=== PATIENT | female | born 1970 | race Caucasian/White ===

== ENCOUNTER 2017-05-25 11:12 | Emergency (ER) | payer MEDICAID ==
[2017-05-25 12:45] LABS: Urine Drugs of Abuse Note Disclamer
[2017-05-25 12:53] LABS: Bilirubin,Urine NEG (Negative); Blood,Urine NEG (Negative); Ketones,Urine 20 mg/dL (Negative); Leukocyte Esterase,Urine NEG (Negative); Mucus,Urine FEW /HPF; Nitrite,Urine NEG (Negative); Urobilinogen,Urine < 2.0 mg/dL (<2.0)
[2017-05-25 12:54] LABS: Basophils % (Auto) 0.5 % (0.0-1.8); Hemoglobin 12.1 gm/dl (10.1-14.3); Mean Corpuscular HGB Conc 33 % (30-34); Mean Corpuscular Hemoglobin 29 pg (28-32); Mean Corpuscular Volume 88 fl (79-97); Red Blood Count 4.23 M/mm3 (3.65-5.03); Red Cell Distribution Width 13.7 % (13.2-15.2); White Blood Count 12.1 K/mm3 (4.5-11.0)
--- NOTE | 2017-05-25 13:07 | XRay Report ---
Single view chest: History: Mental status. Findings: Normal cardiomediastinal silhouette. Trachea is midline. No consolidation, pneumothorax or pleural effusion. Impression: No acute cardiopulmonary findings.
[2017-05-25 13:13] LABS: Alanine Aminotransferase 17 units/L (7-56); Albumin 4.5 g/dL (3.9-5); Albumin/Globulin Ratio 1.3 %; Alkaline Phosphatase 68 units/L (35-129); Anion Gap 22 mmol/L; Blood Urea Nitrogen 15 mg/dL (7-17); Calcium 9.2 mg/dL (8.4-10.2); Carbon Dioxide 21 mmol/L (22-30); Chloride 102.7 mmol/L (98-107); Glucose 104 mg/dL (65-100); Sodium 142 mmol/L (137-145); Total Protein 7.9 g/dL (6.3-8.2)
--- NOTE | 2017-05-25 13:24 | Emergency Department Report ---
HPI - General Chief Complaint: Altered Mental Status Time Seen by Provider: 05/25/17 13:10 - HPI HPI: Room 23 The patient is a 46-year-old female presenting with a chief complaint of altered mental status. The patient is unable to provide history secondary to altered mental status and the patient's significant other is a very poor historian. He states the patient was in her usual state of health last night at 23:00 when she went to bed. He heard the patient awakened at approximately 03:00 this morning also in her normal state of health. Significant other states she left the home and came back at approximately 10:00 this morning to find the patient sitting in the chair unresponsive. The patient was brought to the hospital where she vacillates between episodes of screaming out and becoming unresponsive. The significant other states that she does not have a history of this behavior in the past. He denies any psychiatric history. He states he is unaware of any recreational drug use. He states the patient complained of chest pain 2 weeks ago and "collapsed." He states the patient did not go to the hospital during this episode Location: Mental State Duration: [see above] Quality: Altered Severity: Moderate Modifying factors: [see above] Context: [see above] Mode of transportation: [not driving] ED Past Medical Hx - Past Medical History Hx Hypertension: Yes Additional medical history: chronic pain, hypercholesterolemia - Surgical History Additional Surgical History: L leg fx repair. hyst. pelvic fx repair - Family History Family history: no significant - Social History Smoking Status: Never Smoker Substance Use Type: None - Medications Home Medications: Home Medications Medication Instructions Recorded Confirmed Last Taken Type Amitriptyline [Elavil] 50 mg PO QHS #30 tab 05/22/15 Unknown Rx Oxycodone HCl/Acetaminophen 1 each PO Q8HR PRN #15 tablet 05/22/15 Unknown Rx [Percocet 10/325 mg] Tizanidine HCl [Zanaflex] 4 mg PO TID PRN #15 capsule 05/22/15 Unknown Rx Zolpidem [Ambien] 10 mg PO QHS #5 tab 05/22/15 Unknown Rx Cyclobenzaprine HCl [Flexeril 5 MG 5 mg PO Q8HR PRN #15 tablet 09/04/15 Unknown Rx TAB] HYDROcodone/APAP 5-325 [[place] 1 each PO Q6HR PRN #30 tablet 09/04/15 Unknown Rx 5-325 mg TAB] ED Review of Systems ROS: Stated complaint: POSSIBLE CVA,AMS Other details as noted in HPI Comment: Unobtainable due to pts medical conditions Cardiovascular: chest pain Physical Exam - Physical Exam Vital Signs: Vital Signs 05/25/17 11:57 Temperature 99.0 F Pulse Rate 87 Blood Pressure 142/84 O2 Sat by Pulse 98 Oximetry Physical Exam: GENERAL: The patient is well-developed well-nourished female lying on stretcher intermittently screaming out. [] HEENT: Normocephalic. Atraumatic. NECK: Supple. Trachea midline CHEST/LUNGS: Clear to auscultation. There is no respiratory distress noted. HEART/CARDIOVASCULAR: Regular. There is no tachycardia. There is no gallop rub or murmur. ABDOMEN: Abdomen is soft, nontender. Patient has normal bowel sounds. There is no abdominal distention. SKIN: There is no rash. There is no edema. There is no diaphoresis. NEURO: The patient is awake at times and screams out in Uzbek. At other times patient does not respond to verbal or tactile stimuli. Patient moves upper extremities at will MUSCULOSKELETAL: There is no evidence of acute injury. ED Course Vital Signs 05/25/17 11:57 Temperature 99.0 F Pulse Rate 87 Blood Pressure 142/84 O2 Sat by Pulse 98 Oximetry - Reevaluation(s) Reevaluation #1: 05/25/17 14:36 Patient now communicates to me in Upper Sorbian and Uzbek while significant other's not in the room. The patient speaks clearly states that she has had substernal chest pain intermittently for the past 4 days ED Medical Decision Making - Lab Data Result diagrams: 05/25/17 12:38 05/25/17 12:38 - EKG Data -: EKG Interpreted by Me EKG shows normal: sinus rhythm Rate: normal - EKG Data When compared to previous EKG there are: previous EKG unavailable Interpretation: nonspecific ST-T wave smooth (T-wave inversion in lead V3) - Radiology Data Radiology results: report reviewed (CT head), image reviewed (chest x-ray, CT head) interpreted by me: Chest x-ray- no focal infiltrates, no pneumothorax CT head (read by radiologist)-no acute intracranial abnormality - Differential Diagnosis intracranial hemorrhage, electrolyte abnormality, rhabdomyolysis, psychosis Critical care attestation.: If time is entered above; I have spent that time in minutes in the direct care of this critically ill patient, excluding procedure time. ED Disposition Clinical Impression: Altered mental status, Anxiety Disposition: DC-09 OP ADMIT IP TO THIS HOSP Is pt being admited?: Yes Does the pt Need Aspirin: Yes Condition: Fair Referrals: PRIMARY CARE, [Primary Care Provider] - 3-5 Days Time of Disposition: 14:42 (hospitalist notified)
--- NOTE | 2017-05-25 13:35 | Admit Criteria Form ---
Admission Criteria Documentation: MENTAL STATUS CHANGE Clinical Indications for Inpatient Care (Place 'X' for any and all applicable criteria): Ongoing inpatient care may be needed for 1 or more of the following(1)(2)(3)(5)( 6): [X ]I. Suspected serious etiology (eg, medical disorder, HEAD BONE GRINDER event) of altered mental status [ ]II. Danger to self or others not manageable at lower level of care [ ]III. Grave disability (eg, inability to perform self care necessary at lower level of care) [ ]IV. Agitation or inappropriate behavior interfering with care for primary condition (eg, attempting to discontinue lines or drains prematurely, unable to cooperate with respiratory care) [ ]V. Delirium [A] [D][E] as described by 1 or more of the following(26): [ ]a) Delirium due to alcohol or sedative [F] withdrawal [ ]b) Delirium of uncertain etiology that has not responded to appropriate empiric treatment [ ]c) Delirium that prevents performance of a life-sustaining function (eg, feeding or hydrating oneself) [ ]. General contraindications and/or Inappropriate clinical situations for Observational Care in patients with Mental Status Change, when ANY ONE of the following is required: [ ]a) Prediction of prolongation of LOS based on ANY ONE of the following may be considered as a contraindication for observational care 2, 3, 4, 5, 6, 7, 8, 9, 10, 11 [ ]i) Age > 65 yrs. [ ]ii) Patient arriving by ambulance [ ]iii) Patient with high acuity [ ]iv) Patient requiring vital sign monitoring [ ]v) Patient on IV medication [ ]b) Systolic blood pressures greater than or equal to 180mmHg 3, 12 [ ]c) Patient with altered mental status including delirium and other alteration of consciousness, (3) [ ]d) Patient whose discharge disposition will be to a residential home or rehabilitation home should not be managed in Emergency Department Observation Unit. CMS rule requires 3 days hospital stay before such placement.3,13 [ ]e) Patient with failure to thrive due to broad array of etiologies 3,16,17 [ ]f) Inability to ambulate 3,14 Extended stay beyond goal length of stay for the primary condition may be needed until ALL of the following are present(3)(5): [ ]a) Underlying medical etiology of mental status change is absent, or has been established and adequately treated [ ]b) Danger to self or others is absent or manageable at lower level of care. [ ]c) Behavior crisis management, including physical or chemical restraints, is not required or available at lower level of car [ ]d) Substance or alcohol withdrawal is absent or manageable at lower level of care. [ ]e) Behavioral symptoms (eg, agitation, somnolence, inappropriate behavior) are absent, or are manageable at lower level of care. The original [facility] content created by [facility] has been revised. The portions of the content which have been revised are identified through the use of italic text or in bold, and [facility] [employer] has neither reviewed nor approved the modified material. All other unmodified content is copyright [facility] [employer]. Please see references footnoted in the original [facility] 2016 Admission Criteria Met: Yes
[2017-05-25 13:40] LABS: Platelet Count 381 K/mm3 (140-440)
--- NOTE | 2017-05-25 13:54 | Cat Scan Report ---
CT scan of head without contrast: History altered mental status. Findings Ventricles are normal in size and midline in location. No evidence of acute ischemia, hemorrhage or mass. No extra axial fluid collection. Normal brainstem and cerebellum. Normal sinuses and mastoid air cells. Impression: No acute intracranial abnormality.
[2017-05-25 14:04] VITALS: BP 133/86
[2017-05-25] MEDS ORDERED: ZOFRAN IV ONE (14:43)
[2017-05-25] MEDS ORDERED: PLAVIX PO ONE (14:43)
[2017-05-25] MEDS ORDERED: MORPHINE IV ONE (14:43)
[2017-05-25] MEDS ORDERED: NITRO-BID 2% TP ONE (14:43)
[2017-05-25 15:02] LABS: Creatine Kinase MB 3.8 ng/mL (0.0-4.0)
[2017-05-25 15:04] LABS: Creatine Kinase 363 units/L (30-135)
== END 2017-05-25 15:27 | disposition left against medical advice (07) ==
LOC: ED 11:12
DX: R41.82 Altered mental status, unspecified (principal); F41.9 Anxiety disorder, unspecified; I10 Essential (primary) hypertension; E78.00 Pure hypercholesterolemia, unspecified; G89.29 Other chronic pain
CPT/HCPCS: 36415; 70450; 71010; 80053; 80307; 81001; 81025; 82140; 82550; 82553; 82962; 84484; 85025; 93005; 93010; 99285; G0480; 80320

== ENCOUNTER 2017-11-20 12:41 | Emergency (ER) | payer MEDICAID ==
[2017-11-20 12:56] VITALS: BP 152/94
--- NOTE | 2017-11-20 14:33 | Emergency Department Report ---
ED Back Pain/Injury HPI - General Chief Complaint: Back Pain/Injury Stated Complaint: NECK/BACK PAIN Time Seen by Provider: 11/20/17 14:12 Source: patient Limitations: No Limitations - History of Present Illness Initial Comments: Patient is a 47-year-old female past history of chronic back pain who is coming in stating that she needs help with pain. Patient states she is scheduled for MRI in 2 weeks. Patient try to go to [facility] and has documentation that she was told that she would need to come to the emergency department they could not see her today. Patient denies any urinary incontinence or fecal incontinence or retention. Patient states there is no radiation of pain pain is 6-8 out of 10 in severity and is worse with movement better with rest. - Related Data Home Medications Medication Instructions Recorded Confirmed Last Taken Meloxicam [Mobic] 7.5 mg PO DAILY 05/25/17 05/25/17 Unknown Simvastatin [Zocor TAB] 10 mg PO QDAY 05/25/17 05/25/17 05/24/17 tiZANidine [Zanaflex] 4 mg PO Q8H PRN 05/25/17 05/25/17 05/24/17 Previous Rx's Medication Instructions Recorded Last Taken Type Oxycodone HCl/Acetaminophen 1 each PO Q8HR PRN #15 tablet 05/22/15 05/24/17 Rx [Percocet 10/325 mg] oxyCODONE /ACETAMINOPHEN [Percocet 1 tab PO Q6HR PRN #6 tablet 11/20/17 Unknown Rx 5/325] Allergies Allergy/AdvReac Type Severity Reaction Status Date / Time aspirin Allergy Swelling Verified 09/04/15 13:16 hydroxyzine HCl Allergy Anaphylaxis Verified 09/04/15 13:16 [From Vistaril] hydroxyzine pamoate Allergy Anaphylaxis Verified 09/04/15 13:16 [From Vistaril] ketorolac tromethamine Allergy Swelling Verified 09/04/15 13:16 [From Toradol] Penicillins Allergy Anaphylaxis Verified 09/04/15 13:16 tramadol Allergy Shortness Verified 09/04/15 13:16 of Breath ED Review of Systems ROS: Stated complaint: NECK/BACK PAIN Other details as noted in HPI Comment: All other systems reviewed and negative ED Past Medical Hx - Past Medical History chronic pain, hypercholesterolemia Family history: no significant family history ED Back Pain Physical Exam - Exam General: Vital signs noted. No distress. Alert and acting appropriately. Back/Abdomen: Yes Perilumbar Tenderness, Yes Straight Leg Raise Pain, No Abdominal Tenderness, No Perithoracic Tenderness, No Sacroiliac Tenderness, No Flank Tenderness Neuro: Yes Normal Sensation, Yes Normal DTR's, Yes Normal Gait, No Motor Weakness ED Course Vital Signs 11/20/17 12:53 Temperature 98 F Pulse Rate 126 H Respiratory 18 Rate Blood Pressure 152/94 O2 Sat by Pulse 98 Oximetry ED Medical Decision Making - Medical Decision Making Because patient had went to [facility] was forced to come here to give the patient 6 Percocet and will be discharged home Critical care attestation.: If time is entered above; I have spent that time in minutes in the direct care of this critically ill patient, excluding procedure time. ED Disposition Clinical Impression: Chronic back pain Disposition: DC-01 TO HOME OR SELFCARE Is pt being admited?: No Does the pt Need Aspirin: No Condition: Stable Prescriptions: oxyCODONE /ACETAMINOPHEN [Percocet 5/325] 1 tab PO Q6HR PRN #6 tablet PRN Reason: Pain Referrals: PRIMARY CARE, [Primary Care Provider] - 3-5 Days
== END 2017-11-20 14:36 | disposition home or self-care (01) ==
LOC: ED 12:41
DX: M54.9 Dorsalgia, unspecified (principal); G89.29 Other chronic pain; Z88.6 Allergy status to analgesic agent; Z88.0 Allergy status to penicillin; Z88.8 Allergy status to other drugs, medicaments and biological substances
CPT/HCPCS: 99282

== ENCOUNTER 2017-11-23 10:32 | Emergency (ER) | payer MEDICAID ==
[2017-11-23 10:58] VITALS: BP 143/86
[2017-11-23] MEDS ORDERED: PERCOCET 5/325 PO ONE (12:16)
--- NOTE | 2017-11-23 12:17 | Emergency Department Report ---
ED Neck Pain HPI Chief Complaint: Neck Pain/Injury Stated Complaint: BACK PAIN Time Seen by Provider: 11/23/17 11:53 Duration: he is reporting chronic neck pain for approximately 1 year. Neck Pain Location: Paraspinal Severity: moderate Symptoms: Yes Pain with Movement, Yes Previous History (patient was here several days ago and was given 6 Percocet and told that no further narcotics be given for this condition. Patient states that her doctor will not give her pain meds and she is returned), No Radiation to Left Upper Ext, No Radiation to Right Upper Ext, No Numbness, No Weakness ED Review of Systems ROS: Stated complaint: BACK PAIN Other details as noted in HPI Comment: All other systems reviewed and negative ED Past Medical Hx - Past Medical History Hx Hypertension: Yes Hx Arthritis: Yes Additional medical history: chronic pain, hypercholesterolemia - Surgical History Additional Surgical History: L leg fx repair. hyst. pelvic fx repair - Social History Smoking Status: Never Smoker Substance Use Type: None - Medications Home Medications: Home Medications Medication Instructions Recorded Confirmed Last Taken Type Oxycodone HCl/Acetaminophen 1 each PO Q8HR PRN #15 tablet 05/22/15 05/25/17 Rx [Percocet 10/325 mg] Meloxicam [Mobic] 7.5 mg PO DAILY 05/25/17 05/25/17 Unknown History Simvastatin [Zocor TAB] 10 mg PO QDAY 05/25/17 05/25/17 05/24/17 History tiZANidine [Zanaflex] 4 mg PO Q8H PRN 05/25/17 05/25/17 05/24/17 History oxyCODONE /ACETAMINOPHEN [Percocet 1 tab PO Q6HR PRN #6 tablet 11/20/17 Unknown Rx 5/325] Neck Pain Exam - Exam General: Vital signs noted. No distress. Alert and acting appropriately. HEENT: No Facial Pain, No Scalp Tenderness, No Contusion, No Abrasion, No Laceration Neck Pain: Yes Midline Tenderness, Yes Right Paraspinal Tenderness, Yes Left Paraspinal Tenderness, No Right Trapezius Tenderness, No Left Trapezius Tenderness, No Pain with Rotation Right, No Pain with Rotation Left, No Pain with Extension, No Pain with Flexion, No pain with R Lateral Flexion, No Pain with L Lateral Flexion Chest: Yes Clear Lung Sounds, No Pain with Respirations Heart: Yes Regular, No Murmur Back: No Thoracic Tenderness, No Lumbar Tenderness Neuro: No Numbness, No Weakness, No Normal Reflexes, No Radicular Deficits ED Course Vital Signs 11/23/17 10:55 Temperature 97.7 F Pulse Rate 95 H Respiratory 16 Rate Blood Pressure 143/86 O2 Sat by Pulse 100 Oximetry ED Medical Decision Making - Medical Decision Making Patient has been counseled that the emergency department cannot give prescriptions for chronic conditions. Patient was given 1 Percocet here in the emergency Department B discharge home Critical care attestation.: If time is entered above; I have spent that time in minutes in the direct care of this critically ill patient, excluding procedure time. ED Disposition Clinical Impression: Chronic pain Disposition: DC-01 TO HOME OR SELFCARE Is pt being admited?: No Does the pt Need Aspirin: No Condition: Stable Referrals: LUCIEN MORGAN MD [Primary Care Provider] - 3-5 Days
== END 2017-11-23 12:25 | disposition home or self-care (01) ==
LOC: ED 10:32
DX: M54.2 Cervicalgia (principal); G89.29 Other chronic pain; I10 Essential (primary) hypertension
CPT/HCPCS: 99282

== ENCOUNTER 2018-10-23 09:53 | Inpatient (IN) | payer MEDICAID ==
[2018-10-23] MEDS ORDERED: VANCOMYCIN PHARMACY TO DOSE IV ONE (12:00)
[2018-10-23] MEDS ORDERED: MORPHINE IV ONE (12:02)
[2018-10-23] MEDS ORDERED: ZOFRAN IV ONE (12:02)
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
[2018-10-23] MEDS ORDERED: MORPHINE ONE (12:05)
[2018-10-23] MEDS ORDERED: ZOFRAN ONE (12:05)
[2018-10-23 12:17] LABS: Basophils # (Auto) 0.1 K/mm3 (0.0-0.1); Basophils % (Auto) 0.3 % (0.0-1.8); Hematocrit 36.4 % (30.3-42.9); Hemoglobin 12.1 gm/dl (10.1-14.3); Lymphocytes # (Auto) 1.7 K/mm3 (1.2-5.4); Lymphocytes % (Auto) 9.7 % (13.4-35.0); Mean Corpuscular HGB Conc 33 % (30-34); Mean Corpuscular Volume 88 fl (79-97); Monocytes # (Auto) 1.7 K/mm3 (0.0-0.8); Monocytes % (Auto) 9.7 % (0.0-7.3); Platelet Count 365 K/mm3 (140-440); Red Blood Count 4.13 M/mm3 (3.65-5.03); Red Cell Distribution Width 14.6 % (13.2-15.2)
[2018-10-23 12:39] LABS: Alanine Aminotransferase 18 units/L (7-56); Albumin 4.7 g/dL (3.9-5); BUN/Creatinine Ratio 17; Blood Urea Nitrogen 10 mg/dL (7-17); Calcium 9.4 mg/dL (8.4-10.2); Hemolysis Index 12
[2018-10-23] MEDS ORDERED: VANCOMYCIN 1,500 MG in NACL 0.9% 500 ML 500 ML IV ONE (13:00)
--- NOTE | 2018-10-23 13:24 | History and Physical Report ---
History of Present Illness Chief complaint: My leg hurts History of present illness: 48 YO Female with Obesity, HTN, OA, HLD, Spinal Stenosis, Chronic Pain presents to ED for evaluation. Pt states that she has experienced pain in her left knee over the past 4 days with worsening symptoms over the same time frame. Pt states that pain is 10/10, localized to the left knee, pt is unable to bear weight on the left leg as a result. Pt acknowledges fever, chills, and left knee swelling and redness. Pt transported to [facility] for further care and evaluation. Pt seen and evaluated in ED and found to have Sepsis, and L knee septic arthritis. Pt admitted to Surgical floor and initiated on sepsis protocol. Ortho surgery consu lted in ED. Pt is pending surgical intervention. Past History Past Medical History: arthritis, hypertension, hyperlipidemia, other (chronic pain) Past Surgical History: hysterectomy, Other (Left leg, pelvic surgery) Social history: Family history: diabetes, hypertension Medications and Allergies Allergies Allergy/AdvReac Type Severity Reaction Status Date / Time aspirin Allergy Swelling Verified 11/23/17 10:55 hydroxyzine HCl Allergy Anaphylaxis Verified 11/23/17 10:55 [From Vistaril] hydroxyzine pamoate Allergy Anaphylaxis Verified 11/23/17 10:55 [From Vistaril] ketorolac tromethamine Allergy Swelling Verified 11/23/17 10:55 [From Toradol] Penicillins Allergy Anaphylaxis Verified 11/23/17 10:55 tramadol Allergy Shortness Verified 11/23/17 10:55 of Breath Home Medications Medication Instructions Recorded Confirmed Last Taken Type No Known Home Medications [No 10/23/18 10/23/18 Unknown History Reported Home Medications] Active Meds: Active Medications Vancomycin HCl 1,500 mg/ (Sodium Chloride) 530 mls @ 333 mls/hr IV ONCE.ED ONE; Protocol Stop: 10/23/18 14:35 Last Admin: 10/23/18 12:55 Dose: 333 mls/hr Documented by: Review of Systems Constitutional: fever, chills, no weight loss Ears, nose, mouth and throat: no ear pain, no ear discharge, no tinnitis, no decreased hearing, no nasal congestion Breasts: no change in shape, no swelling, no mass Cardiovascular: no chest pain, no orthopnea, no palpitations, no rapid/irregular heart beat Respiratory: no cough, no cough with sputum, no excessive sputum, no hemoptysis, no dyspnea on exertion Gastrointestinal: no nausea, no vomiting, no diarrhea, no constipation Genitourinary Female: no pelvic pain, no flank pain, no menorrhagia, no dysuria, no urinary frequency, no urgency Rectal: no pain, no incontinence, no bleeding Musculoskeletal: hot joints, no neck stiffness, no neck pain, no shooting arm pain, no arm numbness/tingling, no low back pain, no shooting leg pain Integumentary: redness, no rash, no pruritis, no sores Neurological: no paralysis, no weakness, no parathesias, no numbness, no tingling, no seizures Psychiatric: no anxiety, no memory loss, no change in sleep habits, no sleep disturbances, no insomnia, no change in appetite Endocrine: no cold intolerance, no heat intolerance, no polyphagia, no excessive thirst, no polydipsia, no polyuria Hematologic/Lymphatic: no easy bruising, no easy bleeding, no lymphadenopathy, n o lymphedema Allergic/Immunologic: no urticaria, no allergic rhinitis, no wheezing, no persistent infections, no anaphylaxis, no angioedema Exam - Constitutional Vitals: Temp Pulse Resp BP Pulse Ox 100.6 F H 123 H 18 116/73 98 10/23/18 10:07 10/23/18 10:07 10/23/18 12:41 10/23/18 10:07 10/23/18 10:07 General appearance: Present: mild distress - EENT Eyes: Present: PERRL ENT: hearing intact, clear oral mucosa - Neck Neck: Present: supple, normal ROM - Respiratory Respiratory effort: normal Respiratory: bilateral: CTA - Cardiovascular Heart Sounds: Present: S1 & S2. Absent: rub, click - Extremities Extremities: pulses symmetrical, No edema Extremity abnormal: edema, erythema, tenderness, other (left knee) Peripheral Pulses: within normal limits - Abdominal General gastrointestinal: Present: soft, non-tender, non-distended, normal bowel sounds Female genitourinary: Present: normal - Integumentary Integumentary: Present: warm, erythema - Musculoskeletal Musculoskeletal: gait normal, strength equal bilaterally - Psychiatric Psychiatric: appropriate mood/affect, intact judgment & insight - Neurologic Neurologic: CNII-XII intact, moves all extremities Results - Labs CBC & Chem 7: 10/23/18 11:55 10/23/18 11:55 Labs: Abnormal lab results 10/23/18 10/23/18 Range/Units 11:55 11:55 WBC 17.7 H (4.5-11.0) K/mm3 Lymph % (Auto) 9.7 L (13.4-35.0) % [place] % (Auto) 9.7 H (0.0-7.3) % [place] # 1.7 H (0.0-0.8) K/mm3 Seg Neutrophils % 80.3 H (40.0-70.0) % Seg Neutrophils # 14.2 H (1.8-7.7) K/mm3 Sodium 136 L (137-145) mmol/L Chloride 96.1 L (98-107) mmol/L Creatinine 0.6 L (0.7-1.2) mg/dL Glucose 103 H (65-100) mg/dL C-Reactive Protein 25.40 H (0.00-1.30) mg/dL Total Protein 8.7 H (6.3-8.2) g/dL Assessment and Plan - Patient Problems (1) Sepsis Current Visit: Yes Status: Acute Qualifiers: Sepsis type: sepsis due to unspecified organism Qualified Code(s): A41.9 - Sepsis, unspecified organism Plan to address problem: IV antibiotic therapy, IVF resuscitation, monitor uop q shift, blood cultures, urinalysis, chest x ray, (2) Septic arthritis of knee, left Current Visit: Yes Status: Acute Plan to address problem: Ortho consulted, arthrocentesis, fluid gram stain, culture, (3) HTN (hypertension) Current Visit: Yes Status: Acute Qualifiers: Hypertension type: essential hypertension Qualified Code(s): I10 - Essential (primary) hypertension Plan to address problem: Monitor bp q shift, continue medical management. (4) DVT prophylaxis Current Visit: Yes Status: Acute Plan to address problem: SCD to BLE while in bed.
[2018-10-23] MEDS ORDERED: ZANAFLEX PO PRN (13:27)
[2018-10-23] MEDS ORDERED: PROVENTIL IH PRN (13:28)
[2018-10-23] MEDS ORDERED: MORPHINE IV PRN (13:28)
[2018-10-23] MEDS ORDERED: SODIUM CHLORIDE FLUSH SYRINGE 10 ML IV PRN (13:28)
--- NOTE | 2018-10-23 13:31 | XRay Report ---
AP CHEST: HISTORY: Fever AP view of the chest demonstrates a normal mediastinal and cardiac contour with clear lungs and normal bony and soft tissue structures. IMPRESSION: Unremarkable AP chest.
--- NOTE | 2018-10-23 13:33 | XRay Report ---
LEFT KNEE, 3 VIEWS LEFT TIBIA AND FIBULA, 2 VIEWS History: Infected hardware Findings: There is mild nonspecific lateral soft tissue swelling or edema. There has been previous internal fixation of the proximal tibia with a metal plate and screws. The hardware appears well applied. There is no obvious bony destruction or lucency surrounding the hardware. No acute fracture is identified. There is normal articulation of the left knee. Impression: Nonspecific lateral soft tissue swelling consistent with cellulitis. No obvious evidence for osteomyelitis or infected hardware.
[2018-10-23] MEDS ORDERED: VANCOMYCIN PHARMACY TO DOSE IV SCH (14:00)
[2018-10-23] MEDS ORDERED: NACL 0.9% 1000 ML IV ONE (14:30)
[2018-10-23 15:48] LABS: Total Cells Counted 100 /mm3
--- NOTE | 2018-10-23 18:16 | Consultation ---
History of Present Illness - HPI Consult date: 10/23/18 Consult reason: joint pain History of present illness: 48 y/o female with c/o left knee/leg pain and swelling, states problem began recently and unable to place weight onto left leg. History of ORIF 2007 denies previous episodes but now extremely painful Past History Past Medical History: arthritis, hypertension, hyperlipidemia, other (chronic pain) Past Surgical History: hysterectomy, Other (Left leg, pelvic surgery) Social history: Family history: diabetes, hypertension Medications and Allergies Allergies Allergy/AdvReac Type Severity Reaction Status Date / Time aspirin Allergy Swelling Verified 11/23/17 10:55 hydroxyzine HCl Allergy Anaphylaxis Verified 11/23/17 10:55 [From Vistaril] hydroxyzine pamoate Allergy Anaphylaxis Verified 11/23/17 10:55 [From Vistaril] ketorolac tromethamine Allergy Swelling Verified 11/23/17 10:55 [From Toradol] Penicillins Allergy Anaphylaxis Verified 11/23/17 10:55 tramadol Allergy Shortness Verified 11/23/17 10:55 of Breath Home Medications Medication Instructions Recorded Confirmed Last Taken Type No Known Home Medications [No 10/23/18 10/23/18 Unknown History Reported Home Medications] Active Meds: Active Medications Acetaminophen (Tylenol) 650 mg PO Q4H PRN PRN Reason: Pain MILD(1-3)/Fever >100.5/BURCIAGA Albuterol (Proventil) 2.5 mg IH Q4HRT PRN PRN Reason: Shortness Of Breath Chlorhexidine Gluconate (Peridex) 15 ml MM BID [facility] Vancomycin HCl 1,250 mg/ (Sodium Chloride) 275 mls @ 137.5 mls/hr IV Q12H [facility] Sodium Chloride (Nacl 0.9% 1000 Ml) 1,000 mls @ 125 mls/hr IV DIRECT [facility] Meloxicam (Mobic) 7.5 mg PO DAILY [facility] Morphine Sulfate (Morphine) 4 mg IV Q3H PRN PRN Reason: Pain, Moderate (4-6) Ondansetron HCl (Zofran) 4 mg IV Q8H PRN PRN Reason: Nausea And Vomiting Oxycodone/Acetaminophen (Percocet 5/325) 1 tab PO Q6HR PRN PRN Reason: Pain Pravastatin Sodium (Pravachol) 20 mg PO QHS [facility] Sodium Chloride (Sodium Chloride Flush Syringe 10 Ml) 10 ml IV BID [facility] Sodium Chloride (Sodium Chloride Flush Syringe 10 Ml) 10 ml IV PRN PRN PRN Reason: LINE FLUSH Tizanidine HCl (Zanaflex) 4 mg PO Q8H PRN PRN Reason: Muscle Spasm Physical Examination - Physical exam Narrative exam: left leg - moderate swelling proximally along lateral border, minimal effusion noted, ++warmth and tenderness, +fluctulence xrays left leg - well healed fx at tibial plateau, hardware intact no obvious lucency seen or nidus Eyes: PERRL ENT: Positive: clear oral mucosa Respiratory effort: normal Respiratory: bilateral: CTA Rhythm: regular Heart Sounds: Positive: S1 & S2 General gastrointestinal: Positive: soft, non-tender, non-distended, normal bowel sounds Integumentary: clear, warm, dry Neurologic: Positive: CNII-XII intact, moves all extremities, gait normal. Negative: focal deficits Assessment and Plan assesment - possible infected hardware left tibia plan - recommend removing hardware and debride tibia along IVAB tx...
[2018-10-23 18:31] LABS: Bilirubin,Urine NEG (Negative); Blood,Urine NEG (Negative); Color,Urine Yellow (Yellow); Mucus,Urine FEW /HPF; Protein,Urine <15 mg/dL mg/dL (Negative); Urobilinogen,Urine < 2.0 mg/dL (<2.0)
[2018-10-23] MEDS: TYLENOL PO PRN (19:10)
[2018-10-23] MEDS: MORPHINE IV PRN (22:03)
[2018-10-23] MEDS: PRAVACHOL PO SCH (22:03)
[2018-10-23] MEDS: PERIDEX MM SCH (22:03)
[2018-10-23] MEDS: SODIUM CHLORIDE FLUSH SYRINGE 10 ML IV SCH (22:04)
[2018-10-23] MEDS: VANCOMYCIN 1,250 MG in NACL 0.9% 250ML 250 ML IV SCH (23:27)
[2018-10-23] MEDS: NACL 0.9% 1000 ML 1,000 ML IV SCH (23:31)
[2018-10-23] MEDS: PERCOCET 5/325 PO PRN (23:31)
[2018-10-24] MEDS: MORPHINE IV PRN ×3 (05:11→21:24)
[2018-10-24] MEDS ORDERED: NON-FORMULARY (Simvastatin 10 MG) PO SCH (10:00)
[2018-10-24] MEDS: PERIDEX MM SCH ×2 (10:00→21:46)
[2018-10-24] MEDS: MOBIC PO SCH (10:00)
[2018-10-24] MEDS: SODIUM CHLORIDE FLUSH SYRINGE 10 ML IV SCH ×2 (10:00→23:15)
--- NOTE | 2018-10-24 11:46 | Progress Note ---
Assessment and Plan Assessment and plan: : 48 YO Female with Obesity, HTN, OA, HLD, Spinal Stenosis, Chronic Pain -pw left knee pain and swelling, unable to bear weight on it, hx of ORIF of that knee in 2007 Past History Past Medical History: arthritis, hypertension, hyperlipidemia, other (chronic pain) Dx Left knee cellulitis Septic arthritis of left knee with infected hardware Final view of fluid culture growing staph aureus htn Plan Ortho consult appreciated, to OR for hardware removal and debridement/wash out -Continue vancomycin, ID consult -Optimize medications for chronic conditions DVT prophylaxis Lovenox History Interval history: Continues to complain of left knee pain and swelling and inability to bear weight on it Review of systems Constitutional: Low-grade fever, no malaise, no joint pains CVS: No chest pain, no orthopnea, no dyspnea on exertion, no pedal edema GI: No abdominal pain, no diarrhea, no vomiting, no constipation Respiratory: No shortness of breath, no wheezing, no coughing Hospitalist Physical - Physical exam Narrative exam: General.: Appears well, no distress, nontoxic HEENT: Moist mucous membranes, extraocular muscles intact, no lymphadenopathy Neck: supple Cardiac: S1-S2 heard Lungs: clear to auscultation bilaterally Abdomen: soft , nontender, nondistended, bowel sounds positive Extremities: Left knee edema, tenderness and erythema Skin: no rash or lesions Neurologic: no gross focal deficits Psych: calm, and cooperative - Constitutional Vitals: Temp Pulse Resp BP Pulse Ox 98.3 F 111 H 20 108/69 94 10/23/18 23:42 10/23/18 23:42 10/23/18 23:42 10/23/18 23:42 10/23/18 23:42 General appearance: Present: mild distress Results - Labs CBC & Chem 7: 10/23/18 11:55 10/23/18 11:55 Labs: Laboratory Last Values WBC 17.7 K/mm3 (4.5-11.0) H 10/23/18 11:55 RBC 4.13 M/mm3 (3.65-5.03) 10/23/18 11:55 Hgb 12.1 gm/dl (10.1-14.3) 10/23/18 11:55 Hct 36.4 % (30.3-42.9) 10/23/18 11:55 MCV 88 fl (79-97) 10/23/18 11:55 MCH 29 pg (28-32) 10/23/18 11:55 MCHC 33 % (30-34) 10/23/18 11:55 RDW 14.6 % (13.2-15.2) 10/23/18 11:55 Plt Count 365 K/mm3 (140-440) 10/23/18 11:55 Lymph % (Auto) 9.7 % (13.4-35.0) L 10/23/18 11:55 [place] % (Auto) 9.7 % (0.0-7.3) H 10/23/18 11:55 Eos % (Auto) 0.0 % (0.0-4.3) 10/23/18 11:55 Baso % (Auto) 0.3 % (0.0-1.8) 10/23/18 11:55 Lymph # 1.7 K/mm3 (1.2-5.4) 10/23/18 11:55 [place] # 1.7 K/mm3 (0.0-0.8) H 10/23/18 11:55 Eos # 0.0 K/mm3 (0.0-0.4) 10/23/18 11:55 Baso # 0.1 K/mm3 (0.0-0.1) 10/23/18 11:55 Seg Neutrophils % 80.3 % (40.0-70.0) H 10/23/18 11:55 Seg Neutrophils # 14.2 K/mm3 (1.8-7.7) H 10/23/18 11:55 ESR 73 mm/Hr (0-20) 10/23/18 11:55 Sodium 136 mmol/L (137-145) L 10/23/18 11:55 Potassium 3.7 mmol/L (3.6-5.0) 10/23/18 11:55 Chloride 96.1 mmol/L (98-107) L 10/23/18 11:55 Carbon Dioxide 23 mmol/L (22-30) 10/23/18 11:55 Anion Gap 21 mmol/L 10/23/18 11:55 BUN 10 mg/dL (7-17) 10/23/18 11:55 Creatinine 0.6 mg/dL (0.7-1.2) L 10/23/18 11:55 Estimated GFR > 60 ml/min 10/23/18 11:55 BUN/Creatinine Ratio 17 % 10/23/18 11:55 Glucose 103 mg/dL (65-100) H 10/23/18 11:55 Lactic Acid 1.90 mmol/L (0.7-2.0) 10/23/18 21:43 Calcium 9.4 mg/dL (8.4-10.2) 10/23/18 11:55 Total Bilirubin 0.50 mg/dL (0.1-1.2) 10/23/18 11:55 AST 16 units/L (5-40) 10/23/18 11:55 ALT 18 units/L (7-56) 10/23/18 11:55 Alkaline Phosphatase 83 units/L (35-129) 10/23/18 11:55 C-Reactive Protein 25.40 mg/dL (0.00-1.30) H 10/23/18 11:55 Total Protein 8.7 g/dL (6.3-8.2) H 10/23/18 11:55 Albumin 4.7 g/dL (3.9-5) 10/23/18 11:55 Albumin/Globulin Ratio 1.2 % 10/23/18 11:55 Urine Color Yellow (Yellow) 10/23/18 17:53 Urine Turbidity Slightly-cloudy (Clear) 10/23/18 17:53 Urine pH 8.0 (5.0-7.0) H 10/23/18 17:53 Ur Specific [place] 1.012 (1.003-1.030) 10/23/18 17:53 Urine Protein <15 mg/dl mg/dL (Negative) 10/23/18 17:53 Urine Glucose (UA) Neg mg/dL (Negative) 10/23/18 17:53 Urine Ketones Neg mg/dL (Negative) 10/23/18 17:53 Urine Blood Neg (Negative) 10/23/18 17:53 Urine Nitrite Neg (Negative) 10/23/18 17:53 Urine Bilirubin Neg (Negative) 10/23/18 17:53 Urine Urobilinogen < 2.0 mg/dL (<2.0) 10/23/18 17:53 Ur Leukocyte Esterase Neg (Negative) 10/23/18 17:53 Urine WBC (Auto) 1.0 /HPF (0.0-6.0) 10/23/18 17:53 Urine RBC (Auto) 4.0 /HPF (0.0-6.0) 10/23/18 17:53 U Epithel Cells (Auto) 3.0 /HPF (0-13.0) 10/23/18 17:53 Urine Mucus Few /HPF 10/23/18 17:53 Fluid Type Synovial 10/23/18 Unknown Fluid Color Light red 10/23/18 Unknown Fluid Appearance Turbid 10/23/18 Unknown Fluid WBC 99904 /mm3 10/23/18 Unknown Fluid RBC 3750 /mm3 10/23/18 Unknown Fluid Seg Neutrophils 84.0 % 10/23/18 Unknown Fluid Lymphocytes 15.0 % 10/23/18 Unknown Fluid Reactive Lymphs 0 % 10/23/18 Unknown Fluid Monocytes 1.0 % 10/23/18 Unknown Fluid Eosinophils 0 % 10/23/18 Unknown Fluid Basophils 0 % 10/23/18 Unknown
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
[2018-10-24] MEDS ORDERED: VERSED IV NR (14:15)
[2018-10-24] MEDS ORDERED: DECADRON ONE (14:20)
[2018-10-24] MEDS ORDERED: ZOFRAN ONE ×2 (14:20→15:12)
[2018-10-24] MEDS ORDERED: XYLOCAINE MPF 2% ONE (14:20)
[2018-10-24] MEDS ORDERED: SUBLIMAZE ONE (14:20)
[2018-10-24] MEDS ORDERED: DIPRIVAN 10 MG/ML IV ONE (14:21)
[2018-10-24] MEDS: LACTATED RINGERS 1,000 ML IV SCH (14:26)
[2018-10-24] MEDS: VANCOMYCIN 1,250 MG in NACL 0.9% 250ML 250 ML IV SCH ×3 (14:27→23:15)
[2018-10-24] MEDS ORDERED: DILAUDID ONE (15:13)
[2018-10-24] MEDS ORDERED: MARCAINE 0.5% INFILTRATI ONE ×3 (15:14→15:15)
[2018-10-24] MEDS: DILAUDID IV PRN ×2 (16:10→16:20)
--- NOTE | 2018-10-24 16:41 | Anesthesia Consultation ---
Anesthesia Consult and Med Hx Date of service: 10/24/18 - Airway Anesthetic Teeth Evaluation: Edentulous ROM Head & Neck: Adequate Mental/Hyoid Distance: Adequate Mallampati Class: Class II Intubation Access Assessment: Probably Good - Pulmonary Exam CTA: Yes - Cardiac Exam Cardiac Exam: RRR - Pre-Operative Health Status ASA Pre-Surgery Classification: ASA3 Proposed Anesthetic Plan: General - Pulmonary Hx Smoking: No Hx Asthma: No Hx Respiratory Symptoms: No - Cardiovascular System Hx Hypertension: Yes Hx Heart Attack/AMI: No Hx Percutaneous Transluminal Coronary Angioplasty (PTCA): No - Central Nervous System Hx Seizures: No CVA: No Hx Back Pain: Yes (spinal stenosis) - Endocrine Hx Renal Disease: No Hx Liver Disease: No Hx Insulin Dependent Diabetes: No Hx Non-Insulin Dependent Diabetes: No Hx Thyroid Disease: No - Other Systems Hx Obesity: Yes - Additional Comments Anesthesia Medical History Comments: Admitted with septic arthritis. Tachycardic and febrile but otherwise HD stable. No hx anesthetic complications.
--- NOTE | 2018-10-24 16:42 | Anesthesia Day of Surgery ---
Anesthesia Day of Surgery - Day of Surgery Patient Examined: Yes Patient H&P Reviewed: Yes Patient is NPO: Yes
--- NOTE | 2018-10-24 16:43 | Post Anesthesia Evaluation ---
- Post Anesthesia Evaluation Patient Participated: Yes Airway Patent: Yes Stable Respiratory Function: Yes Nausea/Vomiting: No Temp > 96.8F: Yes Pain Manageable: Yes Adequeate Hydration: Yes Anesthesia Complications: No
--- NOTE | 2018-10-24 18:46 | Procedure Note ---
Date of procedure: 10/24/18 Pre-op diagnosis: abscess left leg Post-op diagnosis: same Procedure: Incision and drainage of abscess left leg Procedure The patient was brought to the OR and placed on the OR table in the supine position following induction with Mac anesthesia the patient's left lower extremity was prepped and draped in the usual sterile manner. A timeout procedure was done to identify the patient and the correct operative site. The knee was then flexed to 90 followed by inflation of the pneumatic tourniquet to 300 mmHg. The patient was noted to have some fluctuance over the lateral area of the incision using the previous scar this incision was taken down through skin subcutaneous and encountered plus this was collected and was sent to pathology and microbiology Proximal leg was irrigated copiously with saline solution patient was noted to have intact locking plate and screws with no loosening noted there did not appear to be any evidence of osteomyelitis in the soft tissues appeared pink and healthy after copious irrigation of the wound the incision was closed primarily. Dressings were applied the patient tolerated the procedure there were no complications sent to postanesthesia recovery in stable condition Anesthesia: MAC Surgeon: SHAHEED PAREDES Estimated blood loss: minimal Pathology: list (fluid pus were sent to microbiology for culture and sensitivity studies) Specimen disposition: to lab Condition: stable Disposition: PACU
[2018-10-24] MEDS ORDERED: MORPHINE IV PRN (18:47)
[2018-10-24] MEDS ORDERED: SODIUM CHLORIDE FLUSH SYRINGE 10 ML IV NR (19:00)
[2018-10-24] MEDS: LOVENOX SUB-Q SCH (21:24)
[2018-10-24] MEDS: PRAVACHOL PO SCH (21:24)
[2018-10-24] MEDS: ZOFRAN IV PRN (21:25)
[2018-10-24] MEDS: TYLENOL PO PRN (23:58)
[2018-10-25] MEDS: NORCO 5/325 PO PRN (00:01)
[2018-10-25] MEDS: VANCOMYCIN 1,250 MG in NACL 0.9% 250ML 250 ML IV SCH ×3 (06:35→22:08)
[2018-10-25] MEDS: MORPHINE IV PRN ×3 (06:54→21:02)
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
[2018-10-25] MEDS: SODIUM CHLORIDE FLUSH SYRINGE 10 ML IV SCH ×2 (10:00→22:01)
[2018-10-25] MEDS: MOBIC PO SCH (10:30)
[2018-10-25] MEDS: PERIDEX MM SCH ×2 (10:35→22:02)
[2018-10-25 11:00] LABS: Basophils % (Auto) 0.4 % (0.0-1.8); Eosinophils # (Auto) 0.1 K/mm3 (0.0-0.4); Eosinophils % (Auto) 1.3 % (0.0-4.3); Hematocrit 32.5 % (30.3-42.9); Hemoglobin 10.8 gm/dl (10.1-14.3); Lymphocytes # (Auto) 1.6 K/mm3 (1.2-5.4); Lymphocytes % (Auto) 16.5 % (13.4-35.0); Mean Corpuscular HGB Conc 33 % (30-34); Mean Corpuscular Volume 88 fl (79-97); Monocytes # (Auto) 0.9 K/mm3 (0.0-0.8); Monocytes % (Auto) 9.7 % (0.0-7.3); Platelet Count 437 K/mm3 (140-440); Red Cell Distribution Width 13.9 % (13.2-15.2)
[2018-10-25] MEDS: PERCOCET 5/325 PO PRN ×2 (13:10→22:06)
--- NOTE | 2018-10-25 15:54 | Progress Note ---
Assessment and Plan Status post incision and drainage left leg Doing well Continue observation and IV antibiotics Subjective Date of service: 10/25/18 Interval history: Complains of incisional pain stays leg is somewhat better today than before Objective Vital signs: Vital Signs - 12hr 10/25/18 10/25/18 10/25/18 07:39 07:45 11:32 Temperature 98.6 F 98.3 F Pulse Rate 99 H 107 H Respiratory 18 18 Rate Blood Pressure 101/71 Blood Pressure 104/56 [Left] O2 Sat by Pulse 98 97 96 Oximetry Narrative Exam: Left leg -postoperative dressings intact Preliminary fluid analysis showed staph aureus WBC count down as well as patient's temperature - Labs CBC & BMP: 10/25/18 10:29 10/23/18 11:55 Labs: Abnormal lab results 10/25/18 Range/Units 10:29 [place] % (Auto) 9.7 H (0.0-7.3) % [place] # 0.9 H (0.0-0.8) K/mm3 Seg Neutrophils % 72.1 H (40.0-70.0) %
[2018-10-25] MEDS: LOVENOX SUB-Q SCH (22:00)
[2018-10-25] MEDS: LACTATED RINGERS 1,000 ML IV SCH (22:00)
[2018-10-25] MEDS: PRAVACHOL PO SCH (22:00)
[2018-10-26] MEDS: MORPHINE IV PRN ×4 (03:18→23:23)
[2018-10-26] MEDS: VANCOMYCIN 1,250 MG in NACL 0.9% 250ML 250 ML IV SCH ×3 (05:50→23:31)
[2018-10-26] MEDS: NORCO 5/325 PO PRN (05:53)
[2018-10-26] MEDS: MOBIC PO SCH (09:25)
[2018-10-26] MEDS: PERIDEX MM SCH ×2 (09:26→23:18)
[2018-10-26] MEDS: SODIUM CHLORIDE FLUSH SYRINGE 10 ML IV SCH ×2 (09:26→23:02)
[2018-10-26] MEDS: LACTATED RINGERS 1,000 ML IV SCH (17:49)
[2018-10-26] MEDS: PERCOCET 5/325 PO PRN (17:49)
--- NOTE | 2018-10-26 17:56 | Progress Note ---
Assessment and Plan Assessment and plan: : 48 YO Female with Obesity, HTN, OA, HLD, Spinal Stenosis, Chronic Pain -pw left knee pain and swelling, unable to bear weight on it, hx of ORIF of that knee in 2007 Past History Past Medical History: arthritis, hypertension, hyperlipidemia, other (chronic pain) Dx Left knee cellulitis Septic arthritis of left knee with infected hardware Final view of fluid culture growing staph aureus htn Plan Ortho consult appreciated, sp I and D of left knee on 10/24 -Continue vancomycin, ID consult appreciated -Optimize medications for chronic conditions DVT prophylaxis Lovenox History Interval history: Continues to complain of left knee pain and swelling and inability to bear weight on it Review of systems Constitutional: Low-grade fever, no malaise, no joint pains CVS: No chest pain, no orthopnea, no dyspnea on exertion, no pedal edema GI: No abdominal pain, no diarrhea, no vomiting, no constipation Respiratory: No shortness of breath, no wheezing, no coughing Hospitalist Physical - Physical exam Narrative exam: General.: Appears well, no distress, nontoxic HEENT: Moist mucous membranes, extraocular muscles intact, no lymphadenopathy Neck: supple Cardiac: S1-S2 heard Lungs: clear to auscultation bilaterally Abdomen: soft , nontender, nondistended, bowel sounds positive Extremities: Left knee edema, tenderness and erythema Skin: no rash or lesions Neurologic: no gross focal deficits Psych: calm, and cooperative - Constitutional Vitals: Temp Pulse Resp BP Pulse Ox 99.0 F 36 L 18 126/75 85 10/26/18 15:55 10/26/18 15:55 10/26/18 17:49 10/26/18 15:55 10/26/18 15:55 General appearance: Present: mild distress Results - Labs CBC & Chem 7: 10/25/18 10:29 10/28/18 05:42 Labs: Laboratory Last Values WBC 9.7 K/mm3 (4.5-11.0) 10/25/18 10:29 RBC 3.70 M/mm3 (3.65-5.03) 10/25/18 10:29 Hgb 10.8 gm/dl (10.1-14.3) 10/25/18 10:29 Hct 32.5 % (30.3-42.9) 10/25/18 10:29 MCV 88 fl (79-97) 10/25/18 10:29 MCH 29 pg (28-32) 10/25/18 10: MCHC 33 % (30-34) 10/25/18 10:29 RDW 13.9 % (13.2-15.2) 10/25/18 10:29 Plt Count 437 K/mm3 (140-440) 10/25/18 10:29 Lymph % (Auto) 16.5 % (13.4-35.0) 10/25/18 10:29 [place] % (Auto) 9.7 % (0.0-7.3) H 10/25/18 10:29 Eos % (Auto) 1.3 % (0.0-4.3) 10/25/18 10: Baso % (Auto) 0.4 % (0.0-1.8) 10/25/18 10: Lymph # 1.6 K/mm3 (1.2-5.4) 10/25/18 10: [place] # 0.9 K/mm3 (0.0-0.8) H 10/25/18 10:29 Eos # 0.1 K/mm3 (0.0-0.4) 10/25/18 10: Baso # 0.0 K/mm3 (0.0-0.1) 10/25/18 10: Seg Neutrophils % 72.1 % (40.0-70.0) H 10/25/18 10: Seg Neutrophils # 7.0 K/mm3 (1.8-7.7) 10/25/18 10:29 ESR 73 mm/Hr (0-20) 10/23/18 11:55 Sodium 136 mmol/L (137-145) L 10/23/18 11:55 Potassium 3.7 mmol/L (3.6-5.0) 10/23/18 11:55 Chloride 96.1 mmol/L (98-107) L 10/23/18 11:55 Carbon Dioxide 23 mmol/L (22-30) 10/23/18 11:55 Anion Gap 21 mmol/L 10/23/18 11:55 BUN 10 mg/dL (7-17) 10/23/18 11:55 Creatinine 0.6 mg/dL (0.7-1.2) L 10/23/18 11:55 Estimated GFR > 60 ml/min 10/23/18 11:55 BUN/Creatinine Ratio 17 % 10/23/18 11:55 Glucose 103 mg/dL (65-100) H 10/23/18 11:55 Lactic Acid 1.90 mmol/L (0.7-2.0) 10/23/18 21:43 Calcium 9.4 mg/dL (8.4-10.2) 10/23/18 11:55 Total Bilirubin 0.50 mg/dL (0.1-1.2) 10/23/18 11:55 AST 16 units/L (5-40) 10/23/18 11:55 ALT 18 units/L (7-56) 10/23/18 11:55 Alkaline Phosphatase 83 units/L (35-129) 10/23/18 11:55 C-Reactive Protein 25.40 mg/dL (0.00-1.30) H 10/23/18 11:55 Total Protein 8.7 g/dL (6.3-8.2) H 10/23/18 11:55 Albumin 4.7 g/dL (3.9-5) 10/23/18 11:55 Albumin/Globulin Ratio 1.2 % 10/23/18 11:55 Urine Color Yellow (Yellow) 10/23/18 17:53 Urine Turbidity Slightly-cloudy (Clear) 10/23/18 17:53 Urine pH 8.0 (5.0-7.0) H 10/23/18 17:53 Ur Specific [place] 1.012 (1.003-1.030) 10/23/18 17:53 Urine Protein <15 mg/dl mg/dL (Negative) 10/23/18 17:53 Urine Glucose (UA) Neg mg/dL (Negative) 10/23/18 17:53 Urine Ketones Neg mg/dL (Negative) 10/23/18 17:53 Urine Blood Neg (Negative) 10/23/18 17:53 Urine Nitrite Neg (Negative) 10/23/18 17:53 Urine Bilirubin Neg (Negative) 10/23/18 17:53 Urine Urobilinogen < 2.0 mg/dL (<2.0) 10/23/18 17:53 Ur Leukocyte Esterase Neg (Negative) 10/23/18 17:53 Urine WBC (Auto) 1.0 /HPF (0.0-6.0) 10/23/18 17:53 Urine RBC (Auto) 4.0 /HPF (0.0-6.0) 10/23/18 17:53 U Epithel Cells (Auto) 3.0 /HPF (0-13.0) 10/23/18 17:53 Urine Mucus Few /HPF 10/23/18 17:53 Fluid Type Synovial 10/23/18 Unknown Fluid Color Light red 10/23/18 Unknown Fluid Appearance Turbid 10/23/18 Unknown Fluid WBC 71130 /mm3 10/23/18 Unknown Fluid RBC 3750 /mm3 10/23/18 Unknown Fluid Seg Neutrophils 84.0 % 10/23/18 Unknown Fluid Lymphocytes 15.0 % 10/23/18 Unknown Fluid Reactive Lymphs 0 % 10/23/18 Unknown Fluid Monocytes 1.0 % 10/23/18 Unknown Fluid Eosinophils 0 % 10/23/18 Unknown Fluid Basophils 0 % 10/23/18 Unknown Vancomycin Trough 22.0 ug/mL (5.0-20.0) H 10/26/18 13:10
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
[2018-10-26] MEDS: LOVENOX SUB-Q SCH (23:01)
[2018-10-26] MEDS: PRAVACHOL PO SCH (23:01)
[2018-10-27] MEDS: NORCO 5/325 PO PRN (02:09)
[2018-10-27] MEDS: ZOFRAN IV PRN (03:20)
[2018-10-27] MEDS: MORPHINE IV PRN ×4 (04:05→19:43)
[2018-10-27] MEDS: TYLENOL PO PRN (08:06)
[2018-10-27] MEDS: VANCOMYCIN 1,250 MG in NACL 0.9% 250ML 250 ML IV SCH ×2 (09:26→22:30)
[2018-10-27] MEDS: MOBIC PO SCH (09:26)
[2018-10-27] MEDS: SODIUM CHLORIDE FLUSH SYRINGE 10 ML IV SCH ×2 (09:29→22:00)
[2018-10-27] MEDS: PERCOCET 5/325 PO PRN ×2 (11:38→22:39)
[2018-10-27] MEDS: PERIDEX MM SCH ×2 (11:39→22:20)
[2018-10-27] MEDS: LACTATED RINGERS 1,000 ML IV SCH ×2 (11:44→22:19)
--- NOTE | 2018-10-27 13:11 | Progress Note ---
Assessment and Plan Status post incision and drainage left leg Doing well Continue observation and IV antibiotics Subjective Date of service: 10/27/18 Interval history: less pain now Objective Vital signs: Vital Signs - 12hr 10/27/18 10/27/18 10/27/18 01:23 04:50 07:16 Temperature 99.1 F 98.6 F 98.3 F Pulse Rate 104 H 101 H 94 H Respiratory 19 18 16 Rate Blood Pressure 149/90 112/62 112/61 O2 Sat by Pulse 99 92 96 Oximetry 10/27/18 10/27/18 10/27/18 08:06 11:03 12:59 Temperature 98.8 F Pulse Rate 98 H Respiratory 16 20 Rate Blood Pressure 141/80 O2 Sat by Pulse 95 96 Oximetry Narrative Exam: left leg - incision healing well, no sign infection minimal draingae noted temp down and WBC trending downward - Labs CBC & BMP: 10/25/18 10:29 10/23/18 11:55 Labs: Abnormal lab results 10/26/18 Range/Units 13:10 Vancomycin Trough 22.0 H (5.0-20.0) ug/mL
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
[2018-10-27] MEDS: LOVENOX SUB-Q SCH (22:19)
[2018-10-27] MEDS: PRAVACHOL PO SCH (22:20)
[2018-10-28] MEDS: MORPHINE IV PRN ×3 (00:14→12:09)
[2018-10-28] MEDS: PERCOCET 5/325 PO PRN ×2 (06:09→14:30)
[2018-10-28 06:20] LABS: BUN/Creatinine Ratio 12; Blood Urea Nitrogen 6 mg/dL (7-17); Calcium 9.7 mg/dL (8.4-10.2); Hemolysis Index 20
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
[2018-10-28] MEDS: SODIUM CHLORIDE FLUSH SYRINGE 10 ML IV SCH ×2 (10:00→23:40)
[2018-10-28] MEDS: VANCOMYCIN 1,250 MG in NACL 0.9% 250ML 250 ML IV SCH ×2 (12:22→21:38)
[2018-10-28] MEDS: MOBIC PO SCH (12:22)
[2018-10-28] MEDS: PERIDEX MM SCH ×2 (12:25→23:38)
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
--- NOTE | 2018-10-28 13:40 | Nuclear Medicine Report ---
3 phase bone scan: Patient with swollen left knee and tibial hardware repair extending from the tibial plateau to the midshaft. Following injection of radionuclide flow imaging demonstrates generally increased activity in the proximal leg below the knee with intense uptake overlying the patella. The initial soft tissue imaging again indicates focal uptake at the patella and along the anterior proximal tibia. Delayed imaging for bone activity demonstrates persistent intense uptake over the patella with similar activity over the tibial metaphysis and distal femur. Impression: The findings demonstrate a disproportionate degree of bone uptake in the proximal tibia relative to the soft tissue activity pattern consistent with bone infection. The relatively equal uptake in the patella is nonspecific and could represent the result of increased blood flow to the region. Recommendation: Tagged white cell imaging would be more specific for infection.
[2018-10-28] MEDS: DILAUDID IV PRN ×2 (18:03→21:35)
--- NOTE | 2018-10-28 19:26 | Progress Note ---
Assessment and Plan infected left leg with retained hardware will go ahead and remove plate and screws if possible 2moro... Subjective Date of service: 10/28/18 Interval history: c/o's increasing pain left leg Objective Vital signs: Vital Signs - 12hr 10/28/18 10/28/18 10/28/18 08:51 15:18 15:19 Temperature 100.4 F H Pulse Rate 99 H 101 H Respiratory 18 Rate Blood Pressure 114/82 O2 Sat by Pulse 95 95 95 Oximetry Narrative Exam: left leg - increased erythem at incision site, no drainage bone scan done today show increase signal along proximal tibia - Labs CBC & BMP: 10/25/18 10:29 10/28/18 05:42 Labs: Abnormal lab results 10/28/18 Range/Units 05:42 Chloride 96.6 L (98-107) mmol/L BUN 6 L (7-17) mg/dL Creatinine 0.5 L (0.7-1.2) mg/dL Glucose 108 H (65-100) mg/dL
[2018-10-28] MEDS: LOVENOX SUB-Q SCH (21:37)
[2018-10-28] MEDS: PRAVACHOL PO SCH (23:39)
[2018-10-29] MEDS: DILAUDID IV PRN ×5 (01:21→20:13)
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
[2018-10-29] MEDS: SODIUM CHLORIDE FLUSH SYRINGE 10 ML IV SCH (11:10)
--- NOTE | 2018-10-29 12:28 | Anesthesia Consultation ---
Anesthesia Consult and Med Hx - Airway Anesthetic Teeth Evaluation: Good ROM Head & Neck: Adequate Mental/Hyoid Distance: Adequate Mallampati Class: Class II Intubation Access Assessment: Probably Good - Pulmonary Exam CTA: Yes - Cardiac Exam Cardiac Exam: RRR - Pre-Operative Health Status ASA Pre-Surgery Classification: ASA2 Proposed Anesthetic Plan: General - Pulmonary Hx Smoking: No Hx Asthma: No Hx Respiratory Symptoms: No COPD: No Hx Pneumonia: No - Cardiovascular System Hx Hypertension: Yes Hx Heart Attack/AMI: No Hx Percutaneous Transluminal Coronary Angioplasty (PTCA): No - Central Nervous System Hx Seizures: No CVA: No Hx Back Pain: Yes (spinal stenosis) - Endocrine Hx Renal Disease: No Hx End Stage Renal Disease: No Hx Liver Disease: No Hx Insulin Dependent Diabetes: No Hx Non-Insulin Dependent Diabetes: No Hx Thyroid Disease: No - Other Systems Hx Obesity: Yes - Additional Comments Anesthesia Medical History Comments: Admitted with septic arthritis. Tachycardic and febrile but otherwise HD stable. No hx anesthetic complications.
--- NOTE | 2018-10-29 12:32 | Anesthesia Day of Surgery ---
Anesthesia Day of Surgery - Day of Surgery Patient Examined: Yes Patient H&P Reviewed: Yes Patient is NPO: Yes Beta Blockers: No Cardiac Clearance: No Pulmonary Clearance: No Guzman's Test: N/A
[2018-10-29] MEDS ORDERED: LACTATED RINGERS 1,000 ML ONE (12:53)
[2018-10-29] MEDS: VANCOMYCIN 1,250 MG in NACL 0.9% 250ML 250 ML IV SCH ×2 (12:55→22:14)
[2018-10-29] MEDS: LACTATED RINGERS 1,000 ML IV SCH (12:55)
[2018-10-29] MEDS ORDERED: NEURONTIN PO NR (13:00)
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
[2018-10-29] MEDS: MOBIC PO SCH (16:07)
[2018-10-29] MEDS: PERIDEX MM SCH (16:10)
[2018-10-29] MEDS: PRAVACHOL PO SCH (22:14)
[2018-10-29] MEDS: LOVENOX SUB-Q SCH (22:14)
[2018-10-29] MEDS: NACL 0.9% 1000 ML 1,000 ML IV SCH (22:19)
[2018-10-29] MEDS: RESTORIL PO PRN (22:20)
[2018-10-30] MEDS: PERCOCET 5/325 PO PRN (00:44)
[2018-10-30] MEDS: SODIUM CHLORIDE FLUSH SYRINGE 10 ML IV SCH ×3 (00:48→23:08)
[2018-10-30] MEDS: DILAUDID IV PRN ×8 (05:05→23:57)
[2018-10-30] MEDS ORDERED: LACTATED RINGERS 1,000 ML ONE (06:30)
[2018-10-30] MEDS ORDERED: SUBLIMAZE ONE ×2 (07:16→09:25)
[2018-10-30] MEDS ORDERED: DIPRIVAN 10 MG/ML IV ONE (07:16)
[2018-10-30] MEDS ORDERED: XYLOCAINE MPF 2% ONE (07:16)
[2018-10-30] MEDS ORDERED: NEOSPORIN GU IR ONE (07:19)
[2018-10-30] MEDS: LACTATED RINGERS 1,000 ML IV SCH ×2 (07:22→20:21)
[2018-10-30] MEDS ORDERED: ZOFRAN ONE (08:24)
[2018-10-30] MEDS ORDERED: NACL 0.9% IR ONE (08:32)
[2018-10-30] MEDS ORDERED: DILAUDID ONE ×2 (08:36→08:49)
[2018-10-30] MEDS ORDERED: NACL ONE (08:51)
[2018-10-30] MEDS ORDERED: MARCAINE 0.5% INFILTRATI ONE ×2 (08:51→08:58)
[2018-10-30] MEDS ORDERED: NACL 0.9% 100 ML ONE (08:52)
[2018-10-30] MEDS ORDERED: MORPHINE ONE (08:52)
[2018-10-30] MEDS ORDERED: NACL IRRIGATION ONE (08:57)
[2018-10-30] MEDS ORDERED: MORPHINE IM ONE (08:57)
[2018-10-30] MEDS ORDERED: NACL 0.9% IV ONE (08:57)
[2018-10-30] MEDS ORDERED: VERSED ONE (09:43)
--- NOTE | 2018-10-30 09:50 | Procedure Note ---
Date of procedure: 10/30/18 Pre-op diagnosis: Infected hardware left tibia Post-op diagnosis: same Procedure: Removal infected hardware left tibia Procedure The patient was brought to the OR placed on the OR table in supine position following induction with Mac anesthesia the patient's left lower extremity was prepped and draped in the usual sterile manner. A timeout procedure was done to identify the patient and the correct operative site. The leg was then elevated followed by inflation of the pneumatic tourniquet to 300 mmHg using the previous incision for the I&D these sutures were removed and the incision was enlarged distally this brought us upon the metallic plate situated along the lateral border of the proximal tibia using C-arm fluoroscopy the screws were removed from the proximal plate this was then followed by small stab wounds placed along the distalmost portion of the screw again using a screwdriver and a slight torque the distal were removed from the patient's left leg this is followed by retrieval of the long locked plate again using C-arm visualization a smaller plate with 3 subsequent screws were located the screws were again removed without complications The wounds were debrided using a Curet was done at all sites following this the wound was copiously irrigated The wound was closed in a standard routine fashion. Dressings were applied the patient tolerated the procedure and there were no complications she was sent to postanesthesia recove ry in stable condition Anesthesia: MAC Surgeon: SHAHEED PAREDES Estimated blood loss: minimal Pathology: list (plate and screws) Condition: stable Disposition: PACU
[2018-10-30] MEDS ORDERED: SODIUM CHLORIDE FLUSH SYRINGE 10 ML IV PRN (10:00)
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
--- NOTE | 2018-10-30 11:20 | XRay Report ---
Operative left tibia: Initial image demonstrates tibial hardware consisting of a transverse screw through the supplement toe region with stabilizing plate screwed into the proximal shaft. The additional images demonstrate complete removal of the hardware. There is bony union at what appears to be a fracture site in the junctional region between the metaphysis and shaft.
[2018-10-30] MEDS: VANCOMYCIN 1,250 MG in NACL 0.9% 250ML 250 ML IV SCH ×2 (11:45→22:51)
[2018-10-30] MEDS: PERIDEX MM SCH ×2 (11:52→22:51)
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
[2018-10-30] MEDS: MOBIC PO SCH (16:03)
[2018-10-30] MEDS: LOVENOX SUB-Q SCH (21:33)
[2018-10-30] MEDS: TYLENOL PO PRN (21:34)
[2018-10-30] MEDS: PRAVACHOL PO SCH (21:34)
[2018-10-30] MEDS: RESTORIL PO PRN (21:34)
[2018-10-31] MEDS: DILAUDID IV PRN ×7 (03:19→20:42)
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
[2018-10-31] MEDS: MOBIC PO SCH (11:33)
[2018-10-31] MEDS: SODIUM CHLORIDE FLUSH SYRINGE 10 ML IV SCH ×2 (11:38→22:55)
[2018-10-31] MEDS: PERIDEX MM SCH ×2 (11:38→22:00)
[2018-10-31] MEDS: VANCOMYCIN 1,250 MG in NACL 0.9% 250ML 250 ML IV SCH (11:38)
--- NOTE | 2018-10-31 12:17 | XRay Report ---
CHEST ONE VIEW INDICATION: Right arm PICC placement. COMPARISON: 10/23/2018. FINDINGS: Portable, single, frontal chest radiograph demonstrates normal cardiomediastinal silhouette. Clear lungs. Unremarkable bones. Extrinsic EKG leads. New right upper extremity PICC tip along the distal SVC. CONCLUSION: No acute chest process with interval uncomplicated right upper extremity PICC placement, as described. Thank you for the opportunity to participate in this patient's care.
--- NOTE | 2018-10-31 13:06 | Progress Note ---
Assessment and Plan Status post removal of hardware left tibia doing okay continue observation and IV antibiotics Subjective Date of service: 10/31/18 Interval history: Complaining of left leg pain otherwise doing Objective Vital signs: Vital Signs - 12hr 10/31/18 10/31/18 10/31/18 03:15 03:19 03:49 Temperature 98.9 F Pulse Rate 119 H Respiratory 20 18 18 Rate Respiratory Rate [Left Knee ] Blood Pressure 115/84 O2 Sat by Pulse 94 Oximetry 10/31/18 10/31/18 10/31/18 04:57 06:15 08:11 Temperature 99.5 F 98.4 F Pulse Rate 116 H 116 H Respiratory 18 20 18 Rate Respiratory Rate [Left Knee ] Blood Pressure 120/84 115/75 O2 Sat by Pulse 98 95 Oximetry 10/31/18 10/31/18 10/31/18 08:44 09:04 10:00 Temperature Pulse Rate Respiratory 18 Rate Respiratory 18 Rate [Left Knee ] Blood Pressure O2 Sat by Pulse 97 Oximetry 10/31/18 11:38 Temperature 99.1 F Pulse Rate 120 H Respiratory 18 Rate Respiratory Rate [Left Knee ] Blood Pressure 122/82 O2 Sat by Pulse 95 Oximetry Narrative Exam: Postoperative dressing intact compartments soft, good capillary refill - Labs CBC & BMP: 10/25/18 10:29 10/28/18 05:42
[2018-10-31] MEDS: VANCOMYCIN 1,750 MG in NACL 0.9% 500 ML 500 ML IV SCH (14:33)
--- NOTE | 2018-10-31 16:37 | Progress Note ---
Assessment and Plan Assessment and plan: : 48 YO Female with Obesity, HTN, OA, HLD, Spinal Stenosis, Chronic Pain -pw left knee pain and swelling, unable to bear weight on it, hx of ORIF of that knee in 2007 Past History Past Medical History: arthritis, hypertension, hyperlipidemia, other (chronic pain) Dx Left knee cellulitis Septic arthritis of left knee with infected hardware Final view of fluid culture growing staph aureus htn Plan Ortho consult appreciated, sp I and D of left knee on 10/24, sp Removal of infected hardware on 10/30 -Continue abx, cx growing MSSA, ID consult appreciated -Optimize medications for chronic conditions DVT prophylaxis Lovenox History Interval history: left knee pain is improved Review of systems Constitutional: Low-grade fever, no malaise, no joint pains CVS: No chest pain, no orthopnea, no dyspnea on exertion, no pedal edema GI: No abdominal pain, no diarrhea, no vomiting, no constipation Respiratory: No shortness of breath, no wheezing, no coughing Hospitalist Physical - Physical exam Narrative exam: General.: Appears well, no distress, nontoxic HEENT: Moist mucous membranes, extraocular muscles intact, no lymphadenopathy Neck: supple Cardiac: S1-S2 heard Lungs: clear to auscultation bilaterally Abdomen: soft , nontender, nondistended, bowel sounds positive Extremities: dressing around left knee area, tender Skin: no rash or lesions Neurologic: no gross focal deficits Psych: calm, and cooperative - Constitutional Vitals: Temp Pulse Resp BP Pulse Ox 99.1 F 120 H 18 122/82 95 10/31/18 11:38 10/31/18 11:38 10/31/18 14:43 10/31/18 11:38 10/31/18 11:38 General appearance: Present: mild distress Results - Labs CBC & Chem 7: 10/25/18 10:29 10/28/18 05:42 Labs: Laboratory Last Values WBC 9.7 K/mm3 (4.5-11.0) 10/25/18 10:29 RBC 3.70 M/mm3 (3.65-5.03) 10/25/18 10:29 Hgb 10.8 gm/dl (10.1-14.3) 10/25/18 10:29 Hct 32.5 % (30.3-42.9) 10/25/18 10:29 MCV 88 fl (79-97) 10/25/18 10:29 MCH 29 pg (28-32) 10/25/18 10: MCHC 33 % (30-34) 10/25/18 10:29 RDW 13.9 % (13.2-15.2) 10/25/18 10:29 Plt Count 437 K/mm3 (140-440) 10/25/18 10:29 Lymph % (Auto) 16.5 % (13.4-35.0) 10/25/18 10:29 [place] % (Auto) 9.7 % (0.0-7.3) H 10/25/18 10:29 Eos % (Auto) 1.3 % (0.0-4.3) 10/25/18 10:29 Baso % (Auto) 0.4 % (0.0-1.8) 10/25/18 10: Lymph # 1.6 K/mm3 (1.2-5.4) 10/25/18 10:29 [place] # 0.9 K/mm3 (0.0-0.8) H 10/25/18 10:29 Eos # 0.1 K/mm3 (0.0-0.4) 10/25/18 10:29 Baso # 0.0 K/mm3 (0.0-0.1) 10/25/18 10:29 Seg Neutrophils % 72.1 % (40.0-70.0) H 10/25/18 10:29 Seg Neutrophils # 7.0 K/mm3 (1.8-7.7) 10/25/18 10:29 ESR 73 mm/Hr (0-20) 10/23/18 11:55 Sodium 137 mmol/L (137-145) 10/28/18 05:42 Potassium 4.7 mmol/L (3.6-5.0) D 10/28/18 05:42 Chloride 96.6 mmol/L (98-107) L 10/28/18 05:42 Carbon Dioxide 27 mmol/L (22-30) 10/28/18 05:42 Anion Gap 18 mmol/L 10/28/18 05:42 BUN 6 mg/dL (7-17) L 10/28/18 05:42 Creatinine 0.5 mg/dL (0.7-1.2) L 10/28/18 05:42 Estimated GFR > 60 ml/min 10/28/18 05:42 BUN/Creatinine Ratio 12 % 10/28/18 05:42 Glucose 108 mg/dL (65-100) H 10/28/18 05:42 Lactic Acid 1.90 mmol/L (0.7-2.0) 10/23/18 21:43 Calcium 9.7 mg/dL (8.4-10.2) 10/28/18 05:42 Total Bilirubin 0.50 mg/dL (0.1-1.2) 10/23/18 11:55 AST 16 units/L (5-40) 10/23/18 11:55 ALT 18 units/L (7-56) 10/23/18 11:55 Alkaline Phosphatase 83 units/L (35-129) 10/23/18 11:55 C-Reactive Protein 25.40 mg/dL (0.00-1.30) H 10/23/18 11:55 Total Protein 8.7 g/dL (6.3-8.2) H 10/23/18 11:55 Albumin 4.7 g/dL (3.9-5) 10/23/18 11:55 Albumin/Globulin Ratio 1.2 % 10/23/18 11:55 Urine Color Yellow (Yellow) 10/23/18 17:53 Urine Turbidity Slightly-cloudy (Clear) 10/23/18 17:53 Urine pH 8.0 (5.0-7.0) H 10/23/18 17:53 Ur Specific [place] 1.012 (1.003-1.030) 10/23/18 17:53 Urine Protein <15 mg/dl mg/dL (Negative) 10/23/18 17:53 Urine Glucose (UA) Neg mg/dL (Negative) 10/23/18 17:53 Urine Ketones Neg mg/dL (Negative) 10/23/18 17:53 Urine Blood Neg (Negative) 10/23/18 17:53 Urine Nitrite Neg (Negative) 10/23/18 17:53 Urine Bilirubin Neg (Negative) 10/23/18 17:53 Urine Urobilinogen < 2.0 mg/dL (<2.0) 10/23/18 17:53 Ur Leukocyte Esterase Neg (Negative) 10/23/18 17:53 Urine WBC (Auto) 1.0 /HPF (0.0-6.0) 10/23/18 17:53 Urine RBC (Auto) 4.0 /HPF (0.0-6.0) 10/23/18 17:53 U Epithel Cells (Auto) 3.0 /HPF (0-13.0) 10/23/18 17:53 Urine Mucus Few /HPF 10/23/18 17:53 Fluid Type Synovial 10/23/18 Unknown Fluid Color Light red 10/23/18 Unknown Fluid Appearance Turbid 10/23/18 Unknown Fluid WBC 14467 /mm3 10/23/18 Unknown Fluid RBC 3750 /mm3 10/23/18 Unknown Fluid Seg Neutrophils 84.0 % 10/23/18 Unknown Fluid Lymphocytes 15.0 % 10/23/18 Unknown Fluid Reactive Lymphs 0 % 10/23/18 Unknown Fluid Monocytes 1.0 % 10/23/18 Unknown Fluid Eosinophils 0 % 10/23/18 Unknown Fluid Basophils 0 % 10/23/18 Unknown Vancomycin Trough 8.0 ug/mL (5.0-20.0) 10/30/18 22:10 Nutrition/Malnutrition Assess - Dietary Evaluation Nutrition/Malnutrition Findings: Nutrition Notes Start: 10/30/18 09:20 Freq: Status: Active Protocol: Document 10/30/18 09:20 CT (Rec: 10/30/18 10:29 CT [id number]) Co-Sign 10/30/18 09:20 LP Nutrition Notes Need for Assessment generated from: LOS Initial or Follow up Brief Note Current Diagnosis Hypertension Other Pertinent Diagnosis HLD, Obesity Current Diet Cardiac Subjective/Other Information RD screen for LOS. Pt eating 75% of meals per ADL. Nutrition Intervention Revisit per MD consult or patient Sign Off request:
[2018-10-31] MEDS: LOVENOX SUB-Q SCH (22:54)
[2018-10-31] MEDS: PRAVACHOL PO SCH (22:55)
[2018-11-01] MEDS: VANCOMYCIN 1,750 MG in NACL 0.9% 500 ML 500 ML IV SCH (00:40)
[2018-11-01] MEDS: DILAUDID IV PRN ×5 (01:12→21:43)
[2018-11-01] MEDS: SODIUM CHLORIDE FLUSH SYRINGE 10 ML IV SCH (09:30)
[2018-11-01] MEDS: BENADRYL IV PRN ×3 (09:42→21:27)
[2018-11-01] MEDS: MOBIC PO SCH (09:45)
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
[2018-11-01] MEDS: PERCOCET 5/325 PO PRN (12:15)
[2018-11-01] MEDS: PERIDEX MM SCH ×2 (12:17→21:27)
--- NOTE | 2018-11-01 14:11 | Progress Note ---
Assessment and Plan Assessment and plan: : 48 YO Female with Obesity, HTN, OA, HLD, Spinal Stenosis, Chronic Pain -pw left knee pain and swelling, unable to bear weight on it, hx of ORIF of that knee in 2007 Past History Past Medical History: arthritis, hypertension, hyperlipidemia, other (chronic pain) Dx Left knee cellulitis Septic arthritis of left knee with infected hardware Final view of fluid culture growing staph aureus htn Rash, likely drug reaction to vancomycin Plan Ortho consult appreciated, sp I and D of left knee on 10/24, sp Removal of infected hardware on 10/30 -Continue abx, cx growing MSSA, ID consult appreciated -Optimize medications for chronic conditions - Vancomycin was discontinued, and antibiotics where changed, vancomycin added to patient's drug reaction list DVT prophylaxis Lovenox History Interval history: left knee pain is improved, she is complaining of rash on her arms and face, it is quite itchy and red, the rash usually begins after vancomycin infusion, she did not report it to the doctors because she is thought it would self resolve Review of systems Constitutional: Low-grade fever, no malaise, no joint pains CVS: No chest pain, no orthopnea, no dyspnea on exertion, no pedal edema GI: No abdominal pain, no diarrhea, no vomiting, no constipation Respiratory: No shortness of breath, no wheezing, no coughing Hospitalist Physical - Physical exam Narrative exam: General.: Appears well, no distress, nontoxic HEENT: Moist mucous membranes, extraocular muscles intact, no lymphadenopathy Neck: supple Cardiac: S1-S2 heard Lungs: clear to auscultation bilaterally Abdomen: soft , nontender, nondistended, bowel sounds positive Extremities: dressing around left knee area, tender Skin: Erythematous rash in patches on face and upper extremities Neurologic: no gross focal deficits Psych: calm, and cooperative - Constitutional Vitals: Temp Pulse Resp BP Pulse Ox 98.8 F 108 H 16 113/65 97 11/01/18 12:14 11/01/18 12:14 11/01/18 12:14 11/01/18 12:14 11/01/18 12:14 General appearance: Present: mild distress Results - Labs CBC & Chem 7: 10/25/18 10:29 10/28/18 05:42 Labs: Laboratory Last Values WBC 9.7 K/mm3 (4.5-11.0) 10/25/18 10:29 RBC 3.70 M/mm3 (3.65-5.03) 10/25/18 10:29 Hgb 10.8 gm/dl (10.1-14.3) 10/25/18 10: Hct 32.5 % (30.3-42.9) 10/25/18 10: MCV 88 fl (79-97) 10/25/18 10: MCH 29 pg (28-32) 10/25/18 10: MCHC 33 % (30-34) 10/25/18 10: RDW 13.9 % (13.2-15.2) 10/25/18 10: Plt Count 437 K/mm3 (140-440) 10/25/18 10: Lymph % (Auto) 16.5 % (13.4-35.0) 10/25/18 10: [place] % (Auto) 9.7 % (0.0-7.3) H 10/25/18 10:29 Eos % (Auto) 1.3 % (0.0-4.3) 10/25/18 10:29 Baso % (Auto) 0.4 % (0.0-1.8) 10/25/18 10: Lymph # 1.6 K/mm3 (1.2-5.4) 10/25/18 10: [place] # 0.9 K/mm3 (0.0-0.8) H 10/25/18 10: Eos # 0.1 K/mm3 (0.0-0.4) 10/25/18 10:29 Baso # 0.0 K/mm3 (0.0-0.1) 10/25/18 10:29 Seg Neutrophils % 72.1 % (40.0-70.0) H 10/25/18 10: Seg Neutrophils # 7.0 K/mm3 (1.8-7.7) 10/25/18 10: ESR 73 mm/Hr (0-20) 10/23/18 11:55 Sodium 137 mmol/L (137-145) 10/28/18 05:42 Potassium 4.7 mmol/L (3.6-5.0) D 10/28/18 05:42 Chloride 96.6 mmol/L (98-107) L 10/28/18 05:42 Carbon Dioxide 27 mmol/L (22-30) 10/28/18 05:42 Anion Gap 18 mmol/L 10/28/18 05:42 BUN 6 mg/dL (7-17) L 10/28/18 05:42 Creatinine 0.5 mg/dL (0.7-1.2) L 10/28/18 05:42 Estimated GFR > 60 ml/min 10/28/18 05:42 BUN/Creatinine Ratio 12 % 10/28/18 05:42 Glucose 108 mg/dL (65-100) H 10/28/18 05:42 Lactic Acid 1.90 mmol/L (0.7-2.0) 10/23/18 21:43 Calcium 9.7 mg/dL (8.4-10.2) 10/28/18 05:42 Total Bilirubin 0.50 mg/dL (0.1-1.2) 10/23/18 11:55 AST 16 units/L (5-40) 10/23/18 11:55 ALT 18 units/L (7-56) 10/23/18 11:55 Alkaline Phosphatase 83 units/L (35-129) 10/23/18 11:55 Total Creatine Kinase 380 units/L (30-135) H 11/01/18 11:20 C-Reactive Protein 25.40 mg/dL (0.00-1.30) H 10/23/18 11:55 Total Protein 8.7 g/dL (6.3-8.2) H 10/23/18 11:55 Albumin 4.7 g/dL (3.9-5) 10/23/18 11:55 Albumin/Globulin Ratio 1.2 % 10/23/18 11:55 Urine Color Yellow (Yellow) 10/23/18 17:53 Urine Turbidity Slightly-cloudy (Clear) 10/23/18 17:53 Urine pH 8.0 (5.0-7.0) H 10/23/18 17:53 Ur Specific [place] 1.012 (1.003-1.030) 10/23/18 17:53 Urine Protein <15 mg/dl mg/dL (Negative) 10/23/18 17:53 Urine Glucose (UA) Neg mg/dL (Negative) 10/23/18 17:53 Urine Ketones Neg mg/dL (Negative) 10/23/18 17:53 Urine Blood Neg (Negative) 10/23/18 17:53 Urine Nitrite Neg (Negative) 10/23/18 17:53 Urine Bilirubin Neg (Negative) 10/23/18 17:53 Urine Urobilinogen < 2.0 mg/dL (<2.0) 10/23/18 17:53 Ur Leukocyte Esterase Neg (Negative) 10/23/18 17:53 Urine WBC (Auto) 1.0 /HPF (0.0-6.0) 10/23/18 17:53 Urine RBC (Auto) 4.0 /HPF (0.0-6.0) 10/23/18 17:53 U Epithel Cells (Auto) 3.0 /HPF (0-13.0) 10/23/18 17:53 Urine Mucus Few /HPF 10/23/18 17:53 Fluid Type Synovial 10/23/18 Unknown Fluid Color Light red 10/23/18 Unknown Fluid Appearance Turbid 10/23/18 Unknown Fluid WBC 78563 /mm3 10/23/18 Unknown Fluid RBC 3750 /mm3 10/23/18 Unknown Fluid Seg Neutrophils 84.0 % 10/23/18 Unknown Fluid Lymphocytes 15.0 % 10/23/18 Unknown Fluid Reactive Lymphs 0 % 10/23/18 Unknown Fluid Monocytes 1.0 % 10/23/18 Unknown Fluid Eosinophils 0 % 10/23/18 Unknown Fluid Basophils 0 % 10/23/18 Unknown Vancomycin Trough 8.0 ug/mL (5.0-20.0) 10/30/18 22:10 Nutrition/Malnutrition Assess - Dietary Evaluation Nutrition/Malnutrition Findings: Nutrition Notes Start: 10/30/18 09:20 Freq: Status: Active Protocol: Document 10/30/18 09:20 CT (Rec: 10/30/18 10:29 CT [id number]) Co-Sign 10/30/18 09:20 LP Nutrition Notes Need for Assessment generated from: LOS Initial or Follow up Brief Note Current Diagnosis Hypertension Other Pertinent Diagnosis HLD, Obesity Current Diet Cardiac Subjective/Other Information RD screen for LOS. Pt eating 75% of meals per ADL. Nutrition Intervention Revisit per MD consult or patient Sign Off request:
[2018-11-01] MEDS: DAPTOmycin 500 MG in NACL 0.9% 100 ML IV SCH (15:20)
[2018-11-01] MEDS: PERCOCET 5/325 PO SCH (19:04)
[2018-11-01] MEDS: LOVENOX SUB-Q SCH (21:27)
[2018-11-01] MEDS: PRAVACHOL PO SCH (21:28)
[2018-11-02] MEDS: PERCOCET 5/325 PO SCH ×4 (01:15→18:05)
[2018-11-02] MEDS: SODIUM CHLORIDE FLUSH SYRINGE 10 ML IV SCH ×3 (01:19→23:10)
[2018-11-02] MEDS: DILAUDID IV PRN ×4 (03:45→22:58)
[2018-11-02] MEDS: PERIDEX MM SCH ×2 (10:35→23:10)
[2018-11-02] MEDS: BENADRYL IV PRN ×2 (12:36→22:59)
[2018-11-02] MEDS: MOBIC PO SCH (12:40)
--- NOTE | 2018-11-02 12:40 | Discharge Summary ---
Providers - Providers Date of Admission: 10/23/18 13:28 Attending physician: PATY WHITTINGTON MD 10/23/18 13:18 Consult to Physician [CONS] Stat Comment: Consulting Provider: SHAHEED PAREDES Physician Instructions: Reason For Exam: septic arthritis, infected hardware 10/24/18 11:41 Consult to Physician [CONS] Routine Comment: Consulting Provider: JORGE A MALLORY Physician Instructions: Reason For Exam: SA knee infection 10/24/18 18:49 Physical Therapy Evaluation and Treat [CONS] Routine Comment: Reason For Exam: postop evaluation Weight bearing status?: Full wt bearing Assistive devices?: Yes If so list: Walker 10/30/18 14:39 Consult to Case Management [CONS] Urgent Services Needed at Discharge: Home Health Services Notified:: yes Additional Physician Instructions: [facility] M [phone] O [phone] F [phone] OUTPATIENT PARENTERAL ANTIBIOTIC THERAPY ORDERS Diagnoses: left Knee Septic Arthritis, s/p infected hardware removal 10/30/18. Antimicrobial administration: -Upon discharge will do Vancomycin 1250mg, IV every 12 hours for six weeks ending 12-11-18. Remove PICC line after last dose unless otherwise instructed. Lines: PICC Lab monitoring: CBC, BUN, Creatinine, ALT, AST, vancomycin trough once a week preferly on Sunday morning. Please fax results to [phone] and call [phone] for critical lab results. Sho Villalpando NP/Tasia Dixon MD Date: 10/30/18 Primary care physician: JOYCE MARLOW Hospitalization Condition: Stable Hospital course: 48 YO Female with Obesity, HTN, OA, HLD, Spinal Stenosis, Chronic Pain -pw left knee pain and swelling, unable to bear weight on it, hx of ORIF of that knee in 2007 Past History Past Medical History: arthritis, hypertension, hyperlipidemia, other (chronic pain) Hospital Course Ortho consult appreciated, sp I and D of left knee on 10/24, sp Removal of infected hardware on 10/30 She received IV antibiotics, bone scan, confirmed bone infection she developed a rash which is most likely due to vancomycin. It was discontinued and she was switched to daptomycin prior to discharge. Per ID, Upon discharge will do daptomycin at 6 mg/kg IV qday for 6 weeks until 12-11-18 Dx Left knee cellulitis/osteomylitis Septic arthritis of left knee with infected hardware/ bone due to MSSA htn Rash, likely drug reaction to vancomycin sepsis Disposition: [id number]/TX-06 HOME UNDER HOME HL Time spent for discharge: 33 mins Core Measure Documentation - Palliative Care Palliative Care/ Comfort Measures: Not Applicable - Core Measures Any of the following diagnoses?: none Exam - Physical Exam Narrative exam: General.: Appears well, no distress, nontoxic HEENT: Moist mucous membranes, extraocular muscles intact, no lymphadenopathy Neck: supple Cardiac: S1-S2 heard Lungs: clear to auscultation bilaterally Abdomen: soft , nontender, nondistended, bowel sounds positive Extremities: dressing around left knee area, tender Skin: Erythematous rash in patches on face and upper extremities Neurologic: no gross focal deficits Psych: calm, and cooperative - Constitutional Vitals: Temp Pulse Resp BP Pulse Ox 98.5 F 102 H 18 138/84 98 11/02/18 11:58 11/02/18 11:58 11/02/18 11:58 11/02/18 11:58 11/02/18 11:58 Plan Follow up with: JOYCE MARLOW MD [Primary Care Provider] - 3-5 Days Prescriptions: RX: Pravastatin [Pravachol] 20 mg PO QHS #30 tablet diphenhydrAMINE [Benadryl CAP] 25 mg PO Q6HR PRN #60 capsule PRN Reason: Itching RX: Meloxicam [Mobic] 7.5 mg PO DAILY #30 tablet Oxycodone HCl/Acetaminophen [Percocet 10/325 mg] 1 each PO Q6HR PRN #60 tablet PRN Reason: Pain Prednisone [predniSONE 5 mg (6-Day Pack, 21 Tabs)] 5 mg PO .TAPER #1 tab.ds.pk RX: tiZANidine [Zanaflex] 4 mg PO Q8H PRN #90 tablet PRN Reason: Muscle Spasm
--- NOTE | 2018-11-02 13:09 | Event Note ---
Date: 11/02/18 Patient is tolerating daptomycin well, rash is better per Dr Callaway. Order for daptomycin 500 mg IV qday for 6 weeks until 12-11-18 placed today. Patient can go home after home IV antibiotics are fully arranged by case management. Discussed with Dr Callaway and Tyson.
[2018-11-02] MEDS: SOLU-Medrol IV SCH (15:49)
[2018-11-02] MEDS: DAPTOmycin 500 MG in NACL 0.9% 100 ML IV SCH (16:35)
[2018-11-02] MEDS: LOVENOX SUB-Q SCH (22:59)
[2018-11-02] MEDS: PRAVACHOL PO SCH (22:59)
[2018-11-03] MEDS: PERCOCET 5/325 PO SCH ×3 (01:00→14:52)
[2018-11-03] MEDS: DILAUDID IV PRN ×6 (02:02→21:14)
[2018-11-03] MEDS: BENADRYL IV PRN ×2 (05:11→18:16)
[2018-11-03] MEDS: MOBIC PO SCH (10:53)
[2018-11-03] MEDS: PERIDEX MM SCH (10:54)
--- NOTE | 2018-11-03 10:56 | Progress Note ---
Assessment and Plan Assessment and plan: : 48 YO Female with Obesity, HTN, OA, HLD, Spinal Stenosis, Chronic Pain -pw left knee pain and swelling, unable to bear weight on it, hx of ORIF of that knee in 2007 Past History Past Medical History: arthritis, hypertension, hyperlipidemia, other (chronic pain) Dx Left knee cellulitis Septic arthritis of left knee with infected hardware Final view of fluid culture growing staph aureus htn Rash, likely drug reaction to vancomycin Plan Ortho consult appreciated, sp I and D of left knee on 10/24, sp Removal of infected hardware on 10/30 -Continue abx, cx growing MSSA, ID consult appreciated -Optimize medications for chronic conditions - Vancomycin was discontinued, and antibiotics where changed, to daptomycin, vancomycin added to patient's drug reaction list -awaiting insurance approval of daptomycin, tentative dc on Sunday DVT prophylaxis Lovenox History Interval history: left knee pain is improved, rash is improved Review of systems Constitutional: Low-grade fever, no malaise, no joint pains CVS: No chest pain, no orthopnea, no dyspnea on exertion, no pedal edema GI: No abdominal pain, no diarrhea, no vomiting, no constipation Respiratory: No shortness of breath, no wheezing, no coughing Hospitalist Physical - Physical exam Narrative exam: General.: Appears well, no distress, nontoxic HEENT: Moist mucous membranes, extraocular muscles intact, no lymphadenopathy Neck: supple Cardiac: S1-S2 heard Lungs: clear to auscultation bilaterally Abdomen: soft , nontender, nondistended, bowel sounds positive Extremities: dressing around left knee area, tender Skin: Erythematous rash in patches on face and upper extremities Neurologic: no gross focal deficits Psych: calm, and cooperative - Constitutional Vitals: Temp Pulse Resp BP Pulse Ox 98.1 F 104 H 19 126/71 95 11/03/18 09:17 11/03/18 09:17 11/03/18 09:17 11/03/18 09:17 11/03/18 09:17 General appearance: Present: mild distress Results - Labs CBC & Chem 7: 10/25/18 10:29 10/28/18 05:42 Labs: Laboratory Last Values WBC 9.7 K/mm3 (4.5-11.0) 10/25/18 10:29 RBC 3.70 M/mm3 (3.65-5.03) 10/25/18 10:29 Hgb 10.8 gm/dl (10.1-14.3) 10/25/18 10:29 Hct 32.5 % (30.3-42.9) 10/25/18 10:29 MCV 88 fl (79-97) 10/25/18 10:29 MCH 29 pg (28-32) 10/25/18 10: MCHC 33 % (30-34) 10/25/18 10: RDW 13.9 % (13.2-15.2) 10/25/18 10:29 Plt Count 437 K/mm3 (140-440) 10/25/18 10: Lymph % (Auto) 16.5 % (13.4-35.0) 10/25/18 10: [place] % (Auto) 9.7 % (0.0-7.3) H 10/25/18 10:29 Eos % (Auto) 1.3 % (0.0-4.3) 10/25/18 10:29 Baso % (Auto) 0.4 % (0.0-1.8) 10/25/18 10: Lymph # 1.6 K/mm3 (1.2-5.4) 10/25/18 10: [place] # 0.9 K/mm3 (0.0-0.8) H 10/25/18 10: Eos # 0.1 K/mm3 (0.0-0.4) 10/25/18 10: Baso # 0.0 K/mm3 (0.0-0.1) 10/25/18 10:29 Seg Neutrophils % 72.1 % (40.0-70.0) H 10/25/18 10:29 Seg Neutrophils # 7.0 K/mm3 (1.8-7.7) 10/25/18 10: ESR 73 mm/Hr (0-20) 10/23/18 11:55 Sodium 137 mmol/L (137-145) 10/28/18 05:42 Potassium 4.7 mmol/L (3.6-5.0) D 10/28/18 05:42 Chloride 96.6 mmol/L (98-107) L 10/28/18 05:42 Carbon Dioxide 27 mmol/L (22-30) 10/28/18 05:42 Anion Gap 18 mmol/L 10/28/18 05:42 BUN 6 mg/dL (7-17) L 10/28/18 05:42 Creatinine 0.5 mg/dL (0.7-1.2) L 10/28/18 05:42 Estimated GFR > 60 ml/min 10/28/18 05:42 BUN/Creatinine Ratio 12 % 10/28/18 05:42 Glucose 108 mg/dL (65-100) H 10/28/18 05:42 Lactic Acid 1.90 mmol/L (0.7-2.0) 10/23/18 21:43 Calcium 9.7 mg/dL (8.4-10.2) 10/28/18 05:42 Total Bilirubin 0.50 mg/dL (0.1-1.2) 10/23/18 11:55 AST 16 units/L (5-40) 10/23/18 11:55 ALT 18 units/L (7-56) 10/23/18 11:55 Alkaline Phosphatase 83 units/L (35-129) 10/23/18 11:55 Total Creatine Kinase 380 units/L (30-135) H 11/01/18 11:20 C-Reactive Protein 5.90 mg/dL (0.00-1.30) H 11/01/18 11:20 Total Protein 8.7 g/dL (6.3-8.2) H 10/23/18 11:55 Albumin 4.7 g/dL (3.9-5) 10/23/18 11:55 Albumin/Globulin Ratio 1.2 % 10/23/18 11:55 Urine Color Yellow (Yellow) 10/23/18 17:53 Urine Turbidity Slightly-cloudy (Clear) 10/23/18 17:53 Urine pH 8.0 (5.0-7.0) H 10/23/18 17:53 Ur Specific [place] 1.012 (1.003-1.030) 10/23/18 17:53 Urine Protein <15 mg/dl mg/dL (Negative) 10/23/18 17:53 Urine Glucose (UA) Neg mg/dL (Negative) 10/23/18 17:53 Urine Ketones Neg mg/dL (Negative) 10/23/18 17:53 Urine Blood Neg (Negative) 10/23/18 17:53 Urine Nitrite Neg (Negative) 10/23/18 17:53 Urine Bilirubin Neg (Negative) 10/23/18 17:53 Urine Urobilinogen < 2.0 mg/dL (<2.0) 10/23/18 17:53 Ur Leukocyte Esterase Neg (Negative) 10/23/18 17:53 Urine WBC (Auto) 1.0 /HPF (0.0-6.0) 10/23/18 17:53 Urine RBC (Auto) 4.0 /HPF (0.0-6.0) 10/23/18 17:53 U Epithel Cells (Auto) 3.0 /HPF (0-13.0) 10/23/18 17:53 Urine Mucus Few /HPF 10/23/18 17:53 Fluid Type Synovial 10/23/18 Unknown Fluid Color Light red 10/23/18 Unknown Fluid Appearance Turbid 10/23/18 Unknown Fluid WBC 66527 /mm3 10/23/18 Unknown Fluid RBC 3750 /mm3 10/23/18 Unknown Fluid Seg Neutrophils 84.0 % 10/23/18 Unknown Fluid Lymphocytes 15.0 % 10/23/18 Unknown Fluid Reactive Lymphs 0 % 10/23/18 Unknown Fluid Monocytes 1.0 % 10/23/18 Unknown Fluid Eosinophils 0 % 10/23/18 Unknown Fluid Basophils 0 % 10/23/18 Unknown Vancomycin Trough 8.0 ug/mL (5.0-20.0) 10/30/18 22:10 Nutrition/Malnutrition Assess - Dietary Evaluation Nutrition/Malnutrition Findings: Nutrition Notes Start: 10/30/18 09:20 Freq: Status: Active Protocol: Document 10/30/18 09:20 CT (Rec: 10/30/18 10:29 CT [id number]) Co-Sign 10/30/18 09:20 LP Nutrition Notes Need for Assessment generated from: LOS Initial or Follow up Brief Note Current Diagnosis Hypertension Other Pertinent Diagnosis HLD, Obesity Current Diet Cardiac Subjective/Other Information RD screen for LOS. Pt eating 75% of meals per ADL. Nutrition Intervention Revisit per MD consult or patient Sign Off request:
--- NOTE | 2018-11-03 10:57 | Progress Note ---
Assessment and Plan Assessment and plan: : 48 YO Female with Obesity, HTN, OA, HLD, Spinal Stenosis, Chronic Pain -pw left knee pain and swelling, unable to bear weight on it, hx of ORIF of that knee in 2007 Past History Past Medical History: arthritis, hypertension, hyperlipidemia, other (chronic pain) Dx Left knee cellulitis Septic arthritis of left knee with infected hardware Final view of fluid culture growing staph aureus htn Rash, likely drug reaction to vancomycin Plan Ortho consult appreciated, sp I and D of left knee on 10/24, sp Removal of infected hardware on 10/30 -Continue abx, cx growing MSSA, ID consult appreciated -Optimize medications for chronic conditions - Vancomycin was discontinued, and antibiotics where changed, to daptomycin, vancomycin added to patient's drug reaction list -awaiting insurance approval of daptomycin, tentative dc on Sunday DVT prophylaxis Lovenox History Interval history: left knee pain is improved, rash is improved Review of systems Constitutional: Low-grade fever, no malaise, no joint pains CVS: No chest pain, no orthopnea, no dyspnea on exertion, no pedal edema GI: No abdominal pain, no diarrhea, no vomiting, no constipation Respiratory: No shortness of breath, no wheezing, no coughing Hospitalist Physical - Physical exam Narrative exam: General.: Appears well, no distress, nontoxic HEENT: Moist mucous membranes, extraocular muscles intact, no lymphadenopathy Neck: supple Cardiac: S1-S2 heard Lungs: clear to auscultation bilaterally Abdomen: soft , nontender, nondistended, bowel sounds positive Extremities: dressing around left knee area, tender Skin: rash on face and UE is improved, now only red, no longer raised Neurologic: no gross focal deficits Psych: calm, and cooperative - Constitutional Vitals: Temp Pulse Resp BP Pulse Ox 98.1 F 104 H 19 126/71 95 11/03/18 09:17 11/03/18 09:17 11/03/18 09:17 11/03/18 09:17 11/03/18 09:17 General appearance: Present: mild distress Results - Labs CBC & Chem 7: 10/25/18 10:29 10/28/18 05:42 Labs: Laboratory Last Values WBC 9.7 K/mm3 (4.5-11.0) 10/25/18 10:29 RBC 3.70 M/mm3 (3.65-5.03) 10/25/18 10: Hgb 10.8 gm/dl (10.1-14.3) 10/25/18 10:29 Hct 32.5 % (30.3-42.9) 10/25/18 10: MCV 88 fl (79-97) 10/25/18 10:29 MCH 29 pg (28-32) 10/25/18 10: MCHC 33 % (30-34) 10/25/18 10: RDW 13.9 % (13.2-15.2) 10/25/18 10:29 Plt Count 437 K/mm3 (140-440) 10/25/18 10: Lymph % (Auto) 16.5 % (13.4-35.0) 10/25/18 10: [place] % (Auto) 9.7 % (0.0-7.3) H 10/25/18 10: Eos % (Auto) 1.3 % (0.0-4.3) 10/25/18 10:29 Baso % (Auto) 0.4 % (0.0-1.8) 10/25/18 10: Lymph # 1.6 K/mm3 (1.2-5.4) 10/25/18 10: [place] # 0.9 K/mm3 (0.0-0.8) H 10/25/18 10:29 Eos # 0.1 K/mm3 (0.0-0.4) 10/25/18 10: Baso # 0.0 K/mm3 (0.0-0.1) 10/25/18 10:29 Seg Neutrophils % 72.1 % (40.0-70.0) H 10/25/18 10:29 Seg Neutrophils # 7.0 K/mm3 (1.8-7.7) 10/25/18 10:29 ESR 73 mm/Hr (0-20) 10/23/18 11:55 Sodium 137 mmol/L (137-145) 10/28/18 05:42 Potassium 4.7 mmol/L (3.6-5.0) D 10/28/18 05:42 Chloride 96.6 mmol/L (98-107) L 10/28/18 05:42 Carbon Dioxide 27 mmol/L (22-30) 10/28/18 05:42 Anion Gap 18 mmol/L 10/28/18 05:42 BUN 6 mg/dL (7-17) L 10/28/18 05:42 Creatinine 0.5 mg/dL (0.7-1.2) L 10/28/18 05:42 Estimated GFR > 60 ml/min 10/28/18 05:42 BUN/Creatinine Ratio 12 % 10/28/18 05:42 Glucose 108 mg/dL (65-100) H 10/28/18 05:42 Lactic Acid 1.90 mmol/L (0.7-2.0) 10/23/18 21:43 Calcium 9.7 mg/dL (8.4-10.2) 10/28/18 05:42 Total Bilirubin 0.50 mg/dL (0.1-1.2) 10/23/18 11:55 AST 16 units/L (5-40) 10/23/18 11:55 ALT 18 units/L (7-56) 10/23/18 11:55 Alkaline Phosphatase 83 units/L (35-129) 10/23/18 11:55 Total Creatine Kinase 380 units/L (30-135) H 11/01/18 11:20 C-Reactive Protein 5.90 mg/dL (0.00-1.30) H 11/01/18 11:20 Total Protein 8.7 g/dL (6.3-8.2) H 10/23/18 11:55 Albumin 4.7 g/dL (3.9-5) 10/23/18 11:55 Albumin/Globulin Ratio 1.2 % 10/23/18 11:55 Urine Color Yellow (Yellow) 10/23/18 17:53 Urine Turbidity Slightly-cloudy (Clear) 10/23/18 17:53 Urine pH 8.0 (5.0-7.0) H 10/23/18 17:53 Ur Specific [place] 1.012 (1.003-1.030) 10/23/18 17:53 Urine Protein <15 mg/dl mg/dL (Negative) 10/23/18 17:53 Urine Glucose (UA) Neg mg/dL (Negative) 10/23/18 17:53 Urine Ketones Neg mg/dL (Negative) 10/23/18 17:53 Urine Blood Neg (Negative) 10/23/18 17:53 Urine Nitrite Neg (Negative) 10/23/18 17:53 Urine Bilirubin Neg (Negative) 10/23/18 17:53 Urine Urobilinogen < 2.0 mg/dL (<2.0) 10/23/18 17:53 Ur Leukocyte Esterase Neg (Negative) 10/23/18 17:53 Urine WBC (Auto) 1.0 /HPF (0.0-6.0) 10/23/18 17:53 Urine RBC (Auto) 4.0 /HPF (0.0-6.0) 10/23/18 17:53 U Epithel Cells (Auto) 3.0 /HPF (0-13.0) 10/23/18 17:53 Urine Mucus Few /HPF 10/23/18 17:53 Fluid Type Synovial 10/23/18 Unknown Fluid Color Light red 10/23/18 Unknown Fluid Appearance Turbid 10/23/18 Unknown Fluid WBC 51638 /mm3 10/23/18 Unknown Fluid RBC 3750 /mm3 10/23/18 Unknown Fluid Seg Neutrophils 84.0 % 10/23/18 Unknown Fluid Lymphocytes 15.0 % 10/23/18 Unknown Fluid Reactive Lymphs 0 % 10/23/18 Unknown Fluid Monocytes 1.0 % 10/23/18 Unknown Fluid Eosinophils 0 % 10/23/18 Unknown Fluid Basophils 0 % 10/23/18 Unknown Vancomycin Trough 8.0 ug/mL (5.0-20.0) 10/30/18 22:10 Nutrition/Malnutrition Assess - Dietary Evaluation Nutrition/Malnutrition Findings: Nutrition Notes Start: 10/30/18 09:20 Freq: Status: Active Protocol: Document 10/30/18 09:20 CT (Rec: 10/30/18 10:29 CT [id number]) Co-Sign 10/30/18 09:20 LP Nutrition Notes Need for Assessment generated from: LOS Initial or Follow up Brief Note Current Diagnosis Hypertension Other Pertinent Diagnosis HLD, Obesity Current Diet Cardiac Subjective/Other Information RD screen for LOS. Pt eating 75% of meals per ADL. Nutrition Intervention Revisit per MD consult or patient Sign Off request:
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
[2018-11-03] MEDS: DAPTOmycin 500 MG in NACL 0.9% 100 ML IV SCH (14:52)
[2018-11-03] MEDS: SODIUM CHLORIDE FLUSH SYRINGE 10 ML IV SCH ×2 (14:53→21:16)
[2018-11-03] MEDS: SOLU-Medrol IV SCH (14:56)
[2018-11-03] MEDS: LOVENOX SUB-Q SCH (21:14)
[2018-11-03] MEDS: PRAVACHOL PO SCH (21:15)
[2018-11-04] MEDS: PERCOCET 5/325 PO SCH ×5 (00:20→18:00)
[2018-11-04] MEDS: PERIDEX MM SCH ×3 (00:21→21:06)
[2018-11-04] MEDS: BENADRYL IV PRN ×2 (00:25→06:30)
[2018-11-04] MEDS: DILAUDID IV PRN ×8 (00:25→22:24)
[2018-11-04] MEDS: MOBIC PO SCH (09:44)
[2018-11-04] MEDS: SODIUM CHLORIDE FLUSH SYRINGE 10 ML IV SCH ×2 (09:46→21:07)
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
[2018-11-04] MEDS: DAPTOmycin 500 MG in NACL 0.9% 100 ML IV SCH (13:16)
[2018-11-04] MEDS: SOLU-Medrol IV SCH (14:05)
[2018-11-04] MEDS: PRAVACHOL PO SCH (21:06)
[2018-11-04] MEDS: LOVENOX SUB-Q SCH (21:06)
[2018-11-04] MEDS: RESTORIL PO PRN (21:15)
[2018-11-05] MEDS: PERCOCET 5/325 PO SCH ×4 (00:05→17:41)
[2018-11-05] MEDS: DILAUDID IV PRN ×6 (05:45→21:20)
[2018-11-05] MEDS: ZOFRAN IV PRN ×2 (08:49→15:06)
[2018-11-05] MEDS: PERIDEX MM SCH ×2 (10:00→21:20)
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
[2018-11-05] MEDS: MOBIC PO SCH (11:55)
[2018-11-05] MEDS: SODIUM CHLORIDE FLUSH SYRINGE 10 ML IV SCH ×2 (12:14→21:20)
[2018-11-05] MEDS: SOLU-Medrol IV SCH (14:12)
[2018-11-05] MEDS: DAPTOmycin 500 MG in NACL 0.9% 100 ML IV SCH (14:12)
--- NOTE | 2018-11-05 17:48 | Event Note ---
Date: 11/05/18 Physician Attestation: I have personally seen and examined patient. I personally discussed and directed assessment and management with [employer]PERVISOR Kwasi. Daptomycin was denied by medicaid. Please appeal decision in the basis of severe MSSA septic arthritis, osteomyelitis with penicillin anaphylaxis and severe rash to vancomycin, there are no other antimicrobial options. Tasia Roberts MD Infectious Diseases [facility] [employer] [facility] M [phone] O [phone]
[2018-11-05] MEDS: LOVENOX SUB-Q SCH (21:20)
[2018-11-05] MEDS: PRAVACHOL PO SCH (21:20)
[2018-11-06] MEDS: PERCOCET 5/325 PO SCH ×4 (00:39→19:11)
[2018-11-06] MEDS: DILAUDID IV PRN ×6 (01:24→20:39)
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
[2018-11-06] MEDS: MOBIC PO SCH (10:36)
[2018-11-06] MEDS: SODIUM CHLORIDE FLUSH SYRINGE 10 ML IV SCH ×2 (10:38→22:02)
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
[2018-11-06] MEDS: PERIDEX MM SCH ×2 (13:22→22:02)
[2018-11-06] MEDS: DAPTOmycin 500 MG in NACL 0.9% 100 ML IV SCH (14:02)
[2018-11-06] MEDS: SOLU-Medrol IV SCH (14:02)
[2018-11-06] MEDS: RESTORIL PO PRN (21:31)
[2018-11-06] MEDS: LOVENOX SUB-Q SCH (21:31)
[2018-11-06] MEDS: PRAVACHOL PO SCH (21:31)
[2018-11-06] MEDS: NACL 0.9% 1000 ML 1,000 ML IV SCH (22:03)
[2018-11-07] MEDS: PERCOCET 5/325 PO SCH ×3 (01:15→12:00)
[2018-11-07] MEDS: DILAUDID IV PRN ×4 (01:16→12:41)
[2018-11-07] MEDS: ZOFRAN IV PRN (01:17)
[2018-11-07] MEDS: MOBIC PO SCH (09:26)
[2018-11-07] MEDS: PERIDEX MM SCH (10:00)
[2018-11-07 12:14] VITALS: BP 107/68
[2018-11-07] MEDS: SODIUM CHLORIDE FLUSH SYRINGE 10 ML IV SCH (12:42)
[2018-11-07] MEDS: DAPTOmycin 500 MG in NACL 0.9% 100 ML IV SCH (13:00)
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
== END 2018-11-07 13:51 | disposition home health service (06) | DRG 495 ==
LOC: ED 09:53 → 3B-SURG 13:28
PROVIDERS: ADMIT Internal Medicine; ATTEND Internal Medicine
PROC: 0S9D3ZZ Drainage of Left Knee Joint, Percutaneous Approach (ICD-10-PCS; 2018-10-23)
PROC: 0J9P0ZZ Drainage of Left Lower Leg Subcutaneous Tissue and Fascia, Open Approach (ICD-10-PCS; principal; 2018-10-24)
PROC: 0QPH04Z Removal of Internal Fixation Device from Left Tibia, Open Approach (ICD-10-PCS; 2018-10-30)
PROC: 02HV33Z Insertion of Infusion Device into Superior Vena Cava, Percutaneous Approach (ICD-10-PCS; 2018-10-31)
DX: T84.54XA Infection and inflammatory reaction due to internal left knee prosthesis, initial encounter (principal); A41.9 Sepsis, unspecified organism; M00.9 Pyogenic arthritis, unspecified; L03.116 Cellulitis of left lower limb; M86.8X6 Other osteomyelitis, lower leg; M00.062 Staphylococcal arthritis, left knee; I10 Essential (primary) hypertension; E66.9 Obesity, unspecified; G89.29 Other chronic pain; M25.462 Effusion, left knee; L27.0 Generalized skin eruption due to drugs and medicaments taken internally; T36.8X5A Adverse effect of other systemic antibiotics, initial encounter; B95.61 Methicillin susceptible Staphylococcus aureus infection as the cause of diseases classified elsewhere; E78.5 Hyperlipidemia, unspecified; Y83.8 Other surgical procedures as the cause of abnormal reaction of the patient, or of later complication, without mention of misadventure at the time of the procedure; Z68.31 Body mass index [BMI] 31.0-31.9, adult; Y92.89 Other specified places as the place of occurrence of the external cause; Z90.710 Acquired absence of both cervix and uterus; Z82.49 Family history of ischemic heart disease and other diseases of the circulatory system; Z83.3 Family history of diabetes mellitus; Z88.6 Allergy status to analgesic agent; Z88.8 Allergy status to other drugs, medicaments and biological substances; Z88.0 Allergy status to penicillin; Z87.891 Personal history of nicotine dependence
CPT/HCPCS: 36415; 71045; 78315; 80048; 80053; 80202; 81001; 82140; 82550; 85025; 85652; 86140; 87040; 87075; 87076; 87116; 87186; 88300; 88302; 89051; 94760; 96365; 96366; 96375; G0378; A9270-GY; A9503; J0878; J1100; J1170; J1200; J1650; J2250; J2270; J2405; J2704; J2920; J3010; J3370; J7030; J7040; J7050; J7120

== ENCOUNTER 2018-11-16 12:09 | Inpatient (IN) | payer MEDICAID ==
--- NOTE | 2018-11-16 12:44 | Emergency Department Report ---
Blank Doc - Documentation Documentation: This is a 48 y.o. female that presents with chest pain and nausea for 2 days a go. She have a PICC in [facility] and reports sharp pain around area. Patient had infected hardware to right knee causing sepsis 3 weeks ago. This initial assessment diagnostic orders/clinical plan/treatment(s) is/are subject to change based on patient's health status, clinical progression and re- assessment by fellow clinical providers in the ED. Further treatment and workup at subsequent clinical providers discretion. Patient/guardians urged not to elope from ED s their condition may be serious if not clinically assessed and managed. Initial orders include: labs and EKG MSE complete.
[2018-11-16 13:10] LABS: Basophils # (Auto) 0.1 K/mm3 (0.0-0.1); Basophils % (Auto) 1.6 % (0.0-1.8); Eosinophils # (Auto) 0.1 K/mm3 (0.0-0.4); Eosinophils % (Auto) 1.5 % (0.0-4.3); Hematocrit 36.8 % (30.3-42.9); Hemoglobin 12.4 gm/dl (10.1-14.3); Lymphocytes # (Auto) 2.4 K/mm3 (1.2-5.4); Lymphocytes % (Auto) 31.2 % (13.4-35.0); Mean Corpuscular HGB Conc 34 % (30-34); Mean Corpuscular Volume 85 fl (79-97); Monocytes # (Auto) 0.6 K/mm3 (0.0-0.8); Platelet Count 436 K/mm3 (140-440); Red Blood Count 4.31 M/mm3 (3.65-5.03); Red Cell Distribution Width 13.8 % (13.2-15.2)
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
[2018-11-16 14:06] LABS: BUN/Creatinine Ratio 10; Blood Urea Nitrogen 7 mg/dL (7-17); Calcium 9.8 mg/dL (8.4-10.2)
[2018-11-16 14:07] LABS: Alanine Aminotransferase 21 units/L (7-56); Albumin 4.4 g/dL (3.9-5); Hemolysis Index 4
[2018-11-16 14:40] LABS: INR 0.97 (0.87-1.13)
[2018-11-16 14:41] LABS: Partial Thromboplastin Time 27.5 Sec. (24.2-36.6)
[2018-11-16] MEDS ORDERED: MORPHINE IV ONE ×2 (15:06→16:25)
[2018-11-16] MEDS ORDERED: ZOFRAN IV ONE (15:07)
[2018-11-16] MEDS: DILAUDID IV PRN ×2 (20:02→22:58)
[2018-11-16] MEDS ORDERED: TYLENOL PO PRN (23:36)
[2018-11-16] MEDS ORDERED: SODIUM CHLORIDE FLUSH SYRINGE 10 ML IV PRN (23:36)
--- NOTE | 2018-11-16 23:36 | History and Physical Report ---
History of Present Illness Date of examination: 11/16/18 Date of admission: 11/16/18 16:56 Chief complaint: Chest pain for few days History of present illness: 48-year-old female who states that she has been having chest pain for 2 weeks. She states that it is much worse today. She has no history of prior coronary artery disease that is known nor venous thromboembolism. 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 As below she is on daptomycin at home through a PICC line. Somehow the patient is relating the pain in her chest to the PICC line. However, she is not complaining of the site ---pain redness or swelling. S/p I and D of left knee on 10/24, s/p Removal of infected hardware on 10/30 in the l Leg.She received IV antibiotics, bone scan, confirmed bone infection.She developed a rash due to vancomycin. It was discontinued and was switched to daptomycin prior to discharge. Per ID, Upon discharge will do daptomycin at 6 mg/kg IV qday for 6 weeks until 12-11-18 . Left knee cellulitis/osteomylitis Septic arthritis of left knee with infected hardware(Plate)on L TIbia bone due to MSSA Past Medical History Hypertension: Yes Arthritis: Yes Chronic pain, hypercholesterolemia. spinalstenosis Surgical History Hx Pacemaker: No Hx Internal Defibrillator: No Additional Surgical History: L leg fx repair. hyst. pelvic fx repair Social History Smoking Status: Former Smoker Substance Use Type: Prescribed Medications Home Medications: Home Medications Medication Instructions Recorded Confirmed Last Taken Type Prednisone [predniSONE 5 mg (6-Day 5 mg PO .TAPER #1 tab.ds.pk 11/02/18 Unknown Rx Pack, 21 Tabs)] RX: DAPTOmycin 500 mg IV Q24H vial 11/02/18 Unknown Rx RX: Meloxicam [Mobic] 7.5 mg PO DAILY #30 tablet 11/02/18 Unknown Rx RX: Pravastatin [Pravachol] 20 mg PO QHS #30 tablet 11/02/18 Unknown Rx RX: tiZANidine [Zanaflex] 4 mg PO Q8H PRN #90 tablet 11/02/18 Unknown Rx diphenhydrAMINE [Benadryl CAP] 25 mg PO Q6HR PRN #60 capsule 11/02/18 Unknown Rx Oxycodone HCl/Acetaminophen 1 each PO Q6HR PRN #60 tablet 11/03/18 Unknown Rx [Percocet 10/325 mg] Review of Systems ROS: Stated complaint: CHEST/BODY PAIN Other details as noted in HPI Constitutional: denies: chills, fever Eyes: denies: eye pain, eye discharge, vision change ENT: denies: ear pain, throat pain Respiratory: denies: cough, shortness of breath, wheezing Cardiovascular: denies: chest pain, palpitations Endocrine: no symptoms reported Gastrointestinal: denies: abdominal pain, nausea, diarrhea Genitourinary: denies: urgency, dysuria, discharge Musculoskeletal: denies: back pain, joint swelling, arthralgia Skin: denies: rash, lesions Neurological: denies: headache, weakness, paresthesias Psychiatric: denies: anxiety, depression Hematological/Lymphatic: denies: easy bleeding, easy bruising Medications and Allergies Allergies Allergy/AdvReac Type Severity Reaction Status Date / Time aspirin Allergy Swelling Verified 11/23/17 10:55 hydroxyzine HCl Allergy Anaphylaxis Verified 11/23/17 10:55 [From Vistaril] hydroxyzine pamoate Allergy Anaphylaxis Verified 11/23/17 10:55 [From Vistaril] ketorolac tromethamine Allergy Swelling Verified 11/23/17 10:55 [From Toradol] Penicillins Allergy Anaphylaxis Verified 11/23/17 10:55 tramadol Allergy Shortness Verified 11/23/17 10:55 of Breath vancomycin Allergy Rash Verified 11/01/18 11:40 Home Medications Medication Instructions Recorded Confirmed Last Taken Type DAPTOmycin 500 mg IV Q24H vial 11/02/18 Unknown Rx Meloxicam [Mobic] 7.5 mg PO DAILY #30 tablet 11/02/18 Unknown Rx Pravastatin [Pravachol] 20 mg PO QHS #30 tablet 11/02/18 Unknown Rx Prednisone [predniSONE 5 mg (6-Day 5 mg PO .TAPER #1 tab.ds.pk 11/02/18 Unknown Rx Pack, 21 Tabs)] diphenhydrAMINE [Benadryl CAP] 25 mg PO Q6HR PRN #60 capsule 11/02/18 Unknown Rx tiZANidine [Zanaflex] 4 mg PO Q8H PRN #90 tablet 11/02/18 Unknown Rx Oxycodone HCl/Acetaminophen 1 each PO Q6HR PRN #60 tablet 11/03/18 Unknown Rx [Percocet 10/325 mg] Active Meds: Active Medications Hydromorphone HCl (Dilaudid) 1 mg IV Q3H PRN PRN Reason: Pain , Severe (7-10) Last Admin: 11/16/18 22:58 Dose: 1 mg Documented by: Exam - Constitutional Vitals: Temp Pulse Resp BP Pulse Ox 98.5 F 120 H 20 124/88 97 11/16/18 20:31 11/16/18 22:00 11/16/18 20:31 11/16/18 20:31 11/16/18 20:31 General appearance: Present: no acute distress, well-nourished - EENT Eyes: Present: PERRL ENT: hearing intact, clear oral mucosa - Neck Neck: Present: supple, normal ROM - Respiratory Respiratory effort: normal Respiratory: bilateral: CTA - Cardiovascular Heart Sounds: Present: S1 & S2. Absent: rub, click - Extremities Extremities: pulses symmetrical, No edema Peripheral Pulses: within normal limits - Abdominal General gastrointestinal: Present: soft, non-tender, non-distended, normal bowel sounds Female genitourinary: Present: normal - Integumentary Integumentary: Present: clear, warm, dry - Musculoskeletal Musculoskeletal: gait normal, strength equal bilaterally - Psychiatric Psychiatric: appropriate mood/affect, intact judgment & insight - Neurologic Neurologic: CNII-XII intact, moves all extremities Results - Labs CBC & Chem 7: 11/16/18 13:00 11/16/18 13:00 Labs: Laboratory Last Values WBC 7.6 K/mm3 (4.5-11.0) 11/16/18 13:00 RBC 4.31 M/mm3 (3.65-5.03) 11/16/18 13:00 Hgb 12.4 gm/dl (10.1-14.3) 11/16/18 13:00 Hct 36.8 % (30.3-42.9) 11/16/18 13:00 MCV 85 fl (79-97) 11/16/18 13:00 MCH 29 pg (28-32) 11/16/18 13:00 MCHC 34 % (30-34) 11/16/18 13:00 RDW 13.8 % (13.2-15.2) 11/16/18 13:00 Plt Count 436 K/mm3 (140-440) 11/16/18 13:00 Lymph % (Auto) 31.2 % (13.4-35.0) 11/16/18 13:00 [place] % (Auto) 8.0 % (0.0-7.3) H 11/16/18 13:00 Eos % (Auto) 1.5 % (0.0-4.3) 11/16/18 13:00 Baso % (Auto) 1.6 % (0.0-1.8) 11/16/18 13:00 Lymph # 2.4 K/mm3 (1.2-5.4) 11/16/18 13:00 [place] # 0.6 K/mm3 (0.0-0.8) 11/16/18 13:00 Eos # 0.1 K/mm3 (0.0-0.4) 11/16/18 13:00 Baso # 0.1 K/mm3 (0.0-0.1) 11/16/18 13:00 Seg Neutrophils % 57.7 % (40.0-70.0) 11/16/18 13:00 Seg Neutrophils # 4.4 K/mm3 (1.8-7.7) 11/16/18 13:00 PT 13.5 Sec. (12.2-14.9) 11/16/18 13:58 INR 0.97 (0.87-1.13) 11/16/18 13:58 APTT 27.5 Sec. (24.2-36.6) 11/16/18 13:58 D-Dimer 921.30 ng/mlDDU (0-234) H 11/16/18 13:58 Sodium 141 mmol/L (137-145) 11/16/18 13:00 Potassium 4.1 mmol/L (3.6-5.0) 11/16/18 13:00 Chloride 101.7 mmol/L (98-107) 11/16/18 13:00 Carbon Dioxide 20 mmol/L (22-30) L 11/16/18 13:00 Anion Gap 23 mmol/L 11/16/18 13:00 BUN 7 mg/dL (7-17) 11/16/18 13:00 Creatinine 0.7 mg/dL (0.7-1.2) 11/16/18 13:00 Estimated GFR > 60 ml/min 11/16/18 13:00 BUN/Creatinine Ratio 10 % 11/16/18 13:00 Glucose 107 mg/dL (65-100) H 11/16/18 13:00 Lactic Acid 1.40 mmol/L (0.7-2.0) 11/16/18 13:58 Calcium 9.8 mg/dL (8.4-10.2) 11/16/18 13:00 Total Bilirubin 0.20 mg/dL (0.1-1.2) 11/16/18 13:00 AST 17 units/L (5-40) 11/16/18 13:00 ALT 21 units/L (7-56) 11/16/18 13:00 Alkaline Phosphatase 83 units/L (35-129) 11/16/18 13:00 Troponin T < 0.010 ng/mL (0.00-0.029) 11/16/18 Unknown NT-Pro-B Natriuret Pep 139.5 pg/mL (0-450) 11/16/18 14:00 Total Protein 8.3 g/dL (6.3-8.2) H 11/16/18 13:00 Albumin 4.4 g/dL (3.9-5) 11/16/18 13:00 Albumin/Globulin Ratio 1.1 % 11/16/18 13:00 Short CBC 11/16/18 Range/Units 13:00 WBC 7.6 (4.5-11.0) K/mm3 Hgb 12.4 (10.1-14.3) gm/dl Hct 36.8 (30.3-42.9) % Plt Count 436 (140-440) K/mm3 BMP 11/16/18 13:00 Sodium 141 Potassium 4.1 Chloride 101.7 Carbon Dioxide 20 L BUN 7 Creatinine 0.7 Glucose 107 H Calcium 9.8 Cardiac Enzymes 11/16/18 11/16/18 11/16/18 Range/Units 13:00 20:07 Unknown Troponin T < 0.010 < 0.010 < 0.010 (0.00-0.029) ng/mL Liver Function 11/16/18 Range/Units 13:00 Total Bilirubin 0.20 (0.1-1.2) mg/dL AST 17 (5-40) units/L ALT 21 (7-56) units/L Alkaline Phosphatase 83 (35-129) units/L Albumin 4.4 (3.9-5) g/dL - Imaging and Cardiology EKG: report reviewed (NSR) Assessment and Plan Advance Directives: Yes (Full code) VTE prophylaxis?: Chemical Plan of care discussed with patient/family: Yes - Patient Problems (1) Chest pain Current Visit: Yes Status: Acute Qualifiers: Chest pain type: unspecified Qualified Code(s): R07.9 - Chest pain, unspecified Plan to address problem: Chest pain protocol Lexiscan on Sunday morning (2) HTN (hypertension) Current Visit: No Status: Chronic Qualifiers: Hypertension type: essential hypertension Qualified Code(s): I10 - Essential (primary) hypertension Plan to address problem: Cont antihypertensi (3) Infected hardware in left leg Current Visit: No Status: Acute Qualifiers: Encounter type: initial encounter Qualified Code(s): T84.7XXA - Infection and inflammatory reaction due to other internal orthopedic prosthetic devices, implants and grafts, initial encounter Plan to address problem: Cont Daptomycin (4) HLD (hyperlipidemia) Current Visit: Yes Status: Chronic Qualifiers: Hyperlipidemia type: mixed hyperlipidemia Qualified Code(s): E78.2 - Mixed hyperlipidemia Plan to address problem: Started on statins (5) DVT prophylaxis Current Visit: No Status: Acute Plan to address problem: On Lovenox and GI prophylaxis
[2018-11-16] MEDS ORDERED: PERCOCET 5/325 PO PRN (23:37)
[2018-11-16] MEDS ORDERED: NACL 0.9% 1000 ML 1,000 ML IV SCH (23:45)
[2018-11-17] MEDS: ZOFRAN IV PRN (01:08)
[2018-11-17] MEDS: DILAUDID IV PRN ×6 (01:58→22:00)
[2018-11-17 05:50] LABS: Basophils # (Auto) 0.1 K/mm3 (0.0-0.1); Basophils % (Auto) 0.9 % (0.0-1.8); Eosinophils % (Auto) 0.2 % (0.0-4.3); Hematocrit 35.4 % (30.3-42.9); Lymphocytes # (Auto) 1.3 K/mm3 (1.2-5.4); Lymphocytes % (Auto) 18.1 % (13.4-35.0); Mean Corpuscular HGB Conc 34 % (30-34); Mean Corpuscular Volume 85 fl (79-97); Monocytes # (Auto) 0.6 K/mm3 (0.0-0.8); Monocytes % (Auto) 7.6 % (0.0-7.3); Platelet Count 416 K/mm3 (140-440); Red Blood Count 4.19 M/mm3 (3.65-5.03); Red Cell Distribution Width 14.1 % (13.2-15.2)
[2018-11-17 06:17] LABS: Alanine Aminotransferase 17 units/L (7-56); Albumin 3.9 g/dL (3.9-5); BUN/Creatinine Ratio 11; Blood Urea Nitrogen 10 mg/dL (7-17); Calcium 9.1 mg/dL (8.4-10.2); Hemolysis Index 4
[2018-11-17] MEDS ORDERED: ZANAFLEX PO PRN (07:49)
[2018-11-17] MEDS: NACL 0.9% IV SCH (09:59)
[2018-11-17] MEDS: DAPTOMYCIN IV SCH (09:59)
[2018-11-17] MEDS: SODIUM CHLORIDE FLUSH SYRINGE 10 ML IV SCH ×2 (10:00→22:00)
--- NOTE | 2018-11-17 11:48 | Progress Note ---
Assessment and Plan Assessment and plan: (1) Chest pain Cardiac enzymes were negative, EKG no STEMI Chest pain protocol Lexiscan on Sunday morning (2) HTN (hypertension) - Controlled continue current antihypertensive medications (3) Infected hardware in left leg Status post adenoid removal Cont Daptomycin (4) HLD (hyperlipidemia): - Continue pravastatin (5) DVT prophylaxis On Lovenox and GI prophylaxis History Interval history: Patient was seen and evaluated this morning, patient said she had vomiting 3 times last night, chest pain is getting better. Hospitalist Physical - Physical exam Narrative exam: Not in cardiopulmonary distress. The patient is obese. Vital signs as documented. Head exam is unremarkable. No scleral icterus . Neck is without jugular venous distension, thyromegaly, or carotid bruits. Lungs are clear to auscultation. Cardiac exam reveals regular rate and Rhythm. First and second heart sounds normal. No murmurs, rubs or gallops. Abdominal exam reveals normal bowel sounds, no masses, no organomegaly and no aortic enlargement. Extremities are nonedematous and both femoral and pedal pulses are normal. Healing surgical stitches around the left knee area. 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 No focal weakness. - Constitutional Vitals: Temp Pulse Resp BP Pulse Ox 97.8 F 105 H 20 85/48 92 11/17/18 05:53 11/17/18 08:34 11/17/18 05:53 11/17/18 05:53 11/17/18 05:53 General appearance: Present: no acute distress, well-nourished Results - Labs CBC & Chem 7: 11/17/18 05:38 11/17/18 05:38 Labs: Laboratory Last Values WBC 7.4 K/mm3 (4.5-11.0) 11/17/18 05:38 RBC 4.19 M/mm3 (3.65-5.03) 11/17/18 05:38 Hgb 12.0 gm/dl (10.1-14.3) 11/17/18 05:38 Hct 35.4 % (30.3-42.9) 11/17/18 05:38 MCV 85 fl (79-97) 11/17/18 05:38 MCH 29 pg (28-32) 11/17/18 05:38 MCHC 34 % (30-34) 11/17/18 05:38 RDW 14.1 % (13.2-15.2) 11/17/18 05:38 Plt Count 416 K/mm3 (140-440) 11/17/18 05:38 Lymph % (Auto) 18.1 % (13.4-35.0) 11/17/18 05:38 [place] % (Auto) 7.6 % (0.0-7.3) H 11/17/18 05:38 Eos % (Auto) 0.2 % (0.0-4.3) 11/17/18 05:38 Baso % (Auto) 0.9 % (0.0-1.8) 11/17/18 05:38 Lymph # 1.3 K/mm3 (1.2-5.4) 11/17/18 05:38 [place] # 0.6 K/mm3 (0.0-0.8) 11/17/18 05:38 Eos # 0.0 K/mm3 (0.0-0.4) 11/17/18 05:38 Baso # 0.1 K/mm3 (0.0-0.1) 11/17/18 05:38 Seg Neutrophils % 73.2 % (40.0-70.0) H 11/17/18 05:38 Seg Neutrophils # 5.4 K/mm3 (1.8-7.7) 11/17/18 05:38 PT 13.5 Sec. (12.2-14.9) 11/16/18 13:58 INR 0.97 (0.87-1.13) 11/16/18 13:58 APTT 27.5 Sec. (24.2-36.6) 11/16/18 13:58 D-Dimer 921.30 ng/mlDDU (0-234) H 11/16/18 13:58 Sodium 142 mmol/L (137-145) 11/17/18 05:38 Potassium 4.3 mmol/L (3.6-5.0) 11/17/18 05:38 Chloride 102.7 mmol/L (98-107) 11/17/18 05:38 Carbon Dioxide 23 mmol/L (22-30) 11/17/18 05:38 Anion Gap 21 mmol/L 11/17/18 05:38 BUN 10 mg/dL (7-17) 11/17/18 05:38 Creatinine 0.9 mg/dL (0.7-1.2) 11/17/18 05:38 Estimated GFR > 60 ml/min 11/17/18 05:38 BUN/Creatinine Ratio 11 % 11/17/18 05:38 Glucose 171 mg/dL (65-100) H 11/17/18 05:38 Hemoglobin A1c 5.9 % (4-6) 11/17/18 00:00 Lactic Acid 1.40 mmol/L (0.7-2.0) 11/16/18 13:58 Calcium 9.1 mg/dL (8.4-10.2) 11/17/18 05:38 Total Bilirubin < 0.20 mg/dL (0.1-1.2) 11/17/18 05:38 AST 13 units/L (5-40) 11/17/18 05:38 ALT 17 units/L (7-56) 11/17/18 05:38 Alkaline Phosphatase 77 units/L (35-129) 11/17/18 05:38 Troponin T < 0.010 ng/mL (0.00-0.029) 11/16/18 Unknown NT-Pro-B Natriuret Pep 139.5 pg/mL (0-450) 11/16/18 14:00 Total Protein 7.4 g/dL (6.3-8.2) 11/17/18 05:38 Albumin 3.9 g/dL (3.9-5) 11/17/18 05:38 Albumin/Globulin Ratio 1.1 % 11/17/18 05:38
[2018-11-17] MEDS ORDERED: PRAVACHOL PO SCH (22:00)
[2018-11-18] MEDS: DILAUDID IV PRN ×4 (02:03→14:24)
[2018-11-18] MEDS ORDERED: LEXISCAN IV ONE ×2 (09:30→09:32)
[2018-11-18] MEDS ORDERED: ZOFRAN ONE (10:03)
[2018-11-18 10:05] VITALS: BP 151/94
[2018-11-18] MEDS: ZOFRAN IV PRN (10:06)
[2018-11-18] MEDS: SODIUM CHLORIDE FLUSH SYRINGE 10 ML IV SCH (11:24)
[2018-11-18] MEDS: NACL 0.9% IV SCH (11:24)
[2018-11-18] MEDS: DAPTOMYCIN IV SCH (11:24)
--- NOTE | 2018-11-18 14:24 | XRay Report ---
FINAL REPORT EXAM: XR CHEST 1V AP HISTORY: cp TECHNIQUE: AP portable view of the chest PRIORS: None. FINDINGS: Lines, tubes, and devices: Right subclavian PICC line terminates in the distal superior vena cava Lungs and pleura: Trachea is normal in position. Lungs are clear of infiltrate, pleural effusion, vas cular congestion, or pneumothorax. Cardiomediastinal silhouette: Cardiac and mediastinal silhouettes are unremarkable. Other: Bony structures are intact. IMPRESSION: No acute cardiopulmonary process seen.
--- NOTE | 2018-11-18 14:27 | Discharge Summary ---
Providers - Providers Date of Admission: 11/16/18 16:56 Attending physician: ERNIE DARLING MD [facility] Reason for admission: Chest pain Condition: Stable Pertinent studies: Cardiac stress test was done and negative for acute ischemia. Hospital course: Admission H&P 48-year-old female who states that she has been having chest pain for 2 weeks. She states that it is much worse today. She has no history of prior coronary artery disease that is known nor venous thromboembolism. 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 As below she is on daptomycin at home through a PICC line. Somehow the patient is relating the pain in her chest to the PICC line. However, she is not complaining of the site ---pain redness or swelling. S/p I and D of left knee on 10/24, s/p Removal of infected hardware on 10/30 in the l Leg.She received IV antibiotics, bone scan, confirmed bone infection.She developed a rash due to vancomycin. It was discontinued and was switched to daptomycin prior to discharge. Per ID, Upon discharge will do daptomycin at 6 mg/kg IV qday for 6 weeks until 12-11-18 . Left knee cellulitis/osteomylitis Septic arthritis of left knee with infected hardware(Plate)on L TIbia bone due to MSSA. Patient was admitted to the floor for chest pain, cardiac enzymes were negative, EKG normal sinus rhythm, cardiac cirrhosis was negative for ischemia. Patient's chest pain is epigastric and more of burning, looks like GERD and I discharged her on pantoprazole. Patient was hemodynamically stable and is without discharge. Patient's questions and concerns were addressed as a bedside. 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 Qualifiers: Encounter type: initial encounter Qualified Code(s): T84.7XXA - Infection and inflammatory reaction due to other internal orthopedic prosthetic devices, implants and grafts, initial encounter (3) Septic arthritis of knee, left Status: Chronic (4) HTN (hypertension) Status: Chronic Qualifiers: Hypertension type: essential hypertension Qualified Code(s): I10 - Esse ntial (primary) hypertension (5) GERD (gastroesophageal reflux disease) Status: Acute Core Measure Documentation - Palliative Care Palliative Care/ Comfort Measures: Not Applicable - Core Measures Any of the following diagnoses?: none Exam - Physical Exam Narrative exam: Not in cardiopulmonary distress. The patient is obese. Vital signs as documented. Head exam is unremarkable. No scleral icterus . Neck is without jugular venous distension, thyromegaly, or carotid bruits. Lungs are clear to auscultation. Cardiac exam reveals regular rate and Rhythm. First and second heart sounds normal. No murmurs, rubs or gallops. Abdominal exam reveals normal bowel sounds, no masses, no organomegaly and no aortic enlargement. Extremities are nonedematous and both femoral and pedal pulses are normal. Healing surgical stitches around the left knee area. SENIOR CARE ASSISTANT: Alert and oriented 3. No focal weakness. - Constitutional Vitals: Temp Pulse Resp BP Pulse Ox 97.9 F 68 18 151/94 98 11/18/18 08:05 11/18/18 08:05 11/18/18 08:05 11/18/18 09:57 11/18/18 08:05 Plan Activity: advance as tolerated Weight Bearing Status: Weight Bear as Tolerated Diet: low cholesterol, low salt Follow up with: JANNA BALLESTEROS MD [Referring] - 3-5 Days Prescriptions: Pantoprazole [Protonix TAB] 40 mg PO QDAY #30 tablet
--- NOTE | 2018-11-18 15:50 | Cat Scan Report ---
FINAL REPORT EXAM: CT ANGIOGRAPHY CHEST HISTORY: CHEST PAIN ELEVATED D DIMER TECHNIQUE: Enhanced CT of the chest at 1.25 mm axial intervals following a pulmonary embolism protoc ol. Coronal and sagittal imaging were also obtained. Coronal oblique MIP projections were obtained. Contrast: 100 ml of Omnipaque 350 given IV. PRIORS: None. FINDINGS: There is no evidence for pulmonary embolism in the main pulmonary artery, right and left pulmonary ar teries or their major distributions. However, CT does not exclude distal pulmonary emboli. Otherwise, the lung parenchyma are expanded and clear with no evidence for parenchymal nodules, infil trates, congestion, or pleural effusion. There is no evidence for mediastinal, hilar, or axillary ad enopathy. Cardiovascular structures are within normal limits. No evidence for ventricular chamber enl argement is seen. Images through the lung bases include the upper abdomen which show no abnormalities of the visualized abdominal viscera. Bony structures demonstrate no focal abnormalities. IMPRESSION: No evidence for pulmonary embolism. Negative CT of the chest.
--- NOTE | 2018-11-18 23:40 | Treadmill Report ---
NUCLEAR PERFUSION SCAN REFERRING PHYSICIAN: Errol Clemons MD PROTOCOL: The patient was brought to the stress lab in a postabsorptive state, given 10 mCi of technetium 99m at rest. The patient underwent rest imaging. The patient underwent Lexiscan stress test. At peak stress, the patient was given 26 mCi of technetium 99m. Shortly thereafter, the patient underwent stress imaging. Raw imaging reveals mild GI artifact, no significant motion artifact. SPECT images examined carefully in horizontal long axis, vertical long axis, short axis views. There is normal homogenous uptake of radioisotope in all reported segments. No evidence of significant fixed or reversible perfusion defects suggestive of prior infarction or ischemia. Gated wall motion reveals normal systolic thickening, calculated ejection fraction of 80%. No TID. CONCLUSIONS: 1. Normal myocardial perfusion scan without evidence of active ischemia or prior infarction. 2. Normal left ventricular systolic performance without evidence of transient ischemic dilatation or stress-induced segmental wall motion abnormalities. 3. Stress test is reported separately. JOB# [id number] LAZARO/NTS
== END 2018-11-18 16:00 | disposition home health service (06) | DRG 392 ==
LOC: ED 12:09 → 4A 16:56
PROVIDERS: ADMIT Internal Medicine; ATTEND Internal Medicine
DX: K21.9 Gastro-esophageal reflux disease without esophagitis (principal); T84.623A Infection and inflammatory reaction due to internal fixation device of left tibia, initial encounter; M86.8X6 Other osteomyelitis, lower leg; M00.9 Pyogenic arthritis, unspecified; G89.29 Other chronic pain; E78.00 Pure hypercholesterolemia, unspecified; E78.2 Mixed hyperlipidemia; Y83.8 Other surgical procedures as the cause of abnormal reaction of the patient, or of later complication, without mention of misadventure at the time of the procedure; I10 Essential (primary) hypertension; Z90.710 Acquired absence of both cervix and uterus; Z87.891 Personal history of nicotine dependence; Z79.899 Other long term (current) drug therapy; Z88.6 Allergy status to analgesic agent; Z88.0 Allergy status to penicillin; Z88.8 Allergy status to other drugs, medicaments and biological substances; Z88.1 Allergy status to other antibiotic agents; Y92.098 Other place in other non-institutional residence as the place of occurrence of the external cause
CPT/HCPCS: 36415; 71045; 71275; 78452; 80053; 82140; 83036; 83880; 84484; 85025; 85379; 85610; 85730; 87076; 87086; 87186; 93005; 93010; 93017; 96374; 96375; G0378; A9270-GY; A9502; J0878; J1170; J2270; J2405; J2785; J7030; Q9967

== ENCOUNTER 2018-11-27 12:40 | Inpatient (IN) | payer MEDICAID ==
--- NOTE | 2018-11-27 12:45 | Emergency Department Report ---
Blank Doc - Documentation Documentation: 48 y/o female comes in for SOB and reports that her PICC line is burning. Renan senior has recent history of osteomylitis, septic joint and cellulits. Is current on IV abx. This initial assessment diagnostic orders/clinical plan/treatment (s) is/Are subjectto change based on patient's health status, clinical progression and re- assessment by fellow clinical providers in the ED. Further treatment and work-up at subsequent clinical providers discretion. Patient/guardians urged not to elope from s their condition may be serious if not clinically assessed and managed. Inital order include: cbc, cmp, cxr
--- NOTE | 2018-11-27 14:20 | XRay Report ---
ROUTINE CHEST, TWO VIEWS: HISTORY: Short of breath. The trachea, heart, mediastinal contour, lung juares and bony thorax are unremarkable. Right arm PICC remains in good position. No change since 11/16/18. IMPRESSION: Unremarkable chest x-ray.
[2018-11-27 15:20] LABS: Hematocrit 40.2 % (30.3-42.9); Mean Corpuscular HGB Conc 32 % (30-34); Mean Corpuscular Volume 91 fl (79-97); Platelet Count 354 K/mm3 (140-440); Red Blood Count 4.41 M/mm3 (3.65-5.03); Red Cell Distribution Width 15.3 % (13.2-15.2)
[2018-11-27 15:37] LABS: Lymphocytes % (Auto) 29.8 % (13.4-35.0)
[2018-11-27 15:38] LABS: Basophils # (Auto) 0.1 K/mm3 (0.0-0.1); Eosinophils # (Auto) 0.3 K/mm3 (0.0-0.4); Eosinophils % (Auto) 4.1 % (0.0-4.3); Lymphocytes # (Auto) 1.9 K/mm3 (1.2-5.4); Monocytes # (Auto) 0.4 K/mm3 (0.0-0.8)
[2018-11-27 15:47] LABS: BUN/Creatinine Ratio 26; Blood Urea Nitrogen 13 mg/dL (7-17); Calcium 9.6 mg/dL (8.4-10.2); Hemolysis Index 93
[2018-11-27] MEDS ORDERED: NACL 0.9% 1000 ML IV ONE (16:23)
[2018-11-27 16:32] LABS: Alanine Aminotransferase 23 units/L (7-56)
[2018-11-27] MEDS ORDERED: ZOFRAN IV PRN (16:53)
[2018-11-27] MEDS ORDERED: TYLENOL PO PRN (16:53)
[2018-11-27] MEDS ORDERED: PROVENTIL IH PRN (16:53)
[2018-11-27] MEDS ORDERED: SODIUM CHLORIDE FLUSH SYRINGE 10 ML IV PRN (16:53)
--- NOTE | 2018-11-27 17:03 | Emergency Department Report ---
ED General Adult HPI - General Chief complaint: Pain General Stated complaint: SOB/PICC LINE PAIN Time Seen by Provider: 11/27/18 12:44 Source: patient Mode of arrival: Ambulatory Limitations: No Limitations - History of Present Illness Initial comments: Patient is a 48-year-old female who is presenting with right arm pain. Patient patient has a PICC line in the right upper extremity is receiving daptomycin daily due to osteomyelitis. Patient has hardware taken out of the proximal femur recent. Patient states that she is having pain and redness at the area of the PICC line in the right upper extremity and the pain radiates into the upper chest. Patient states that the pain is worse with deep breathing. Patient has a fever of 101 at home yesterday. Patient denies any nausea vomiting diarrhea. Severity scale (0 -10): 9 - Related Data Previous Rx's Medication Instructions Recorded Last Taken Type DAPTOmycin 500 mg IV Q24H vial 11/02/18 Unknown Rx Meloxicam [Mobic] 7.5 mg PO DAILY #30 tablet 11/02/18 Unknown Rx Pravastatin [Pravachol] 20 mg PO QHS #30 tablet 11/02/18 Unknown Rx Prednisone [predniSONE 5 mg (6-Day 5 mg PO .TAPER #1 tab.ds.pk 11/02/18 Unknown Rx Pack, 21 Tabs)] diphenhydrAMINE [Benadryl CAP] 25 mg PO Q6HR PRN #60 capsule 11/02/18 Unknown Rx tiZANidine [Zanaflex] 4 mg PO Q8H PRN #90 tablet 11/02/18 Unknown Rx Oxycodone HCl/Acetaminophen 1 each PO Q6HR PRN #60 tablet 11/03/18 Unknown Rx [Percocet 10/325 mg] Pantoprazole [Protonix TAB] 40 mg PO QDAY #30 tablet 11/18/18 Unknown Rx Allergies Allergy/AdvReac Type Severity Reaction Status Date / Time aspirin Allergy Swelling Verified 11/27/18 12:43 hydroxyzine HCl Allergy Anaphylaxis Verified 11/27/18 12:43 [From Vistaril] hydroxyzine pamoate Allergy Anaphylaxis Verified 11/27/18 12:43 [From Vistaril] ketorolac tromethamine Allergy Swelling Verified 11/27/18 12:43 [From Toradol] Penicillins Allergy Anaphylaxis Verified 02/27/19 12:43 tramadol Allergy Shortness Verified 11/27/18 12:43 of Breath vancomycin Allergy Rash Verified 11/27/18 12:43 ED Review of Systems ROS: Stated complaint: SOB/PICC LINE PAIN Other details as noted in HPI Comment: All other systems reviewed and negative ED Past Medical Hx - Past Medical History Hx Hypertension: Yes Hx Heart Attack/AMI: No Hx Congestive Heart Failure: No Hx Diabetes: No Hx Deep Vein Thrombosis: No Hx Liver Disease: No Hx Renal Disease: No Hx Arthritis: Yes Hx Seizures: No Hx Asthma: No Hx COPD: No Hx HIV: No Additional medical history: chronic pain, hypercholesterolemia, 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 spinalstenosis - Surgical History Hx Pacemaker: No Hx Internal Defibrillator: No Additional Surgical History: L leg fx repair. hyst. pelvic fx repair - Social History Smoking Status: Former Smoker Substance Use Type: None - Medications Home Medications: Home Medications Medication Instructions Recorded Confirmed Last Taken Type DAPTOmycin 500 mg IV Q24H vial 11/02/18 Unknown Rx Meloxicam [Mobic] 7.5 mg PO DAILY #30 tablet 11/02/18 Unknown Rx Pravastatin [Pravachol] 20 mg PO QHS #30 tablet 11/02/18 Unknown Rx Prednisone [predniSONE 5 mg (6-Day 5 mg PO .TAPER #1 tab.ds.pk 11/02/18 Unknown Rx Pack, 21 Tabs)] diphenhydrAMINE [Benadryl CAP] 25 mg PO Q6HR PRN #60 capsule 11/02/18 Unknown Rx tiZANidine [Zanaflex] 4 mg PO Q8H PRN #90 tablet 11/02/18 Unknown Rx Oxycodone HCl/Acetaminophen 1 each PO Q6HR PRN #60 tablet 11/03/18 Unknown Rx [Percocet 10/325 mg] Pantoprazole [Protonix TAB] 40 mg PO QDAY #30 tablet 11/18/18 Unknown Rx ED Physical Exam - General Limitations: No Limitations General appearance: alert, in no apparent distress - Head Head exam: Present: atraumatic, normocephalic - Eye Eye exam: Present: normal appearance - ENT ENT exam: Present: normal orophraynx, mucous membranes moist - Neck Neck exam: Present: normal inspection - Respiratory Respiratory exam: Present: normal lung sounds bilaterally. Absent: respiratory distress, wheezes, rales, rhonchi - Cardiovascular Cardiovascular Exam: Present: normal rhythm, tachycardia. Absent: systolic murmur, diastolic murmur, rubs, gallop - GI/Abdominal GI/Abdominal exam: Present: soft, normal bowel sounds. Absent: distended, tenderness, rebound - Extremities Exam Extremities exam: Present: normal inspection - Back Exam Back exam: Present: normal inspection - Neurological Exam Neurological exam: Present: alert, oriented X3 - Psychiatric Psychiatric exam: Present: normal affect, normal mood - Skin Skin exam: Present: warm, dry, intact, normal color, other (patient with a PICC line in the right upper extremity. There is some tenderness at the insertion site with mild erythema. There is no purulent drainage. A dressing is clean and dry.). Absent: rash ED Course Vital Signs 11/27/18 12:47 Temperature 97.8 F Pulse Rate 104 H Respiratory 18 Rate Blood Pressure 124/90 O2 Sat by Pulse 96 Oximetry - Reevaluation(s) Reevaluation #1: 11/27/18 16:58 One set of the patient's blood cultures was to be drawn from her PICC line however laboratory was unable to draw any blood. This again heightens the risk of potential clotting and infection. ED Medical Decision Making - Lab Data Result diagrams: 11/27/18 14:54 11/27/18 14:54 Lab Results 11/27/18 11/27/18 Range/Units 14:54 14:54 WBC 6.3 (4.5-11.0) K/mm3 RBC 4.41 (3.65-5.03) M/mm3 Hgb 13.0 (10.1-14.3) gm/dl Hct 40.2 (30.3-42.9) % MCV 91 (79-97) fl MCH 30 (28-32) pg MCHC 32 (30-34) % RDW 15.3 H (13.2-15.2) % Plt Count 354 (140-440) K/mm3 Lymph % (Auto) 29.8 (13.4-35.0) % Webster % (Auto) 7.0 (0.0-7.3) % Eos % (Auto) 4.1 (0.0-4.3) % Baso % (Auto) 1.0 (0.0-1.8) % Lymph # 1.9 (1.2-5.4) K/mm3 Webster # 0.4 (0.0-0.8) K/mm3 Eos # 0.3 (0.0-0.4) K/mm3 Baso # 0.1 (0.0-0.1) K/mm3 Seg Neutrophils % 58.1 (40.0-70.0) % Seg Neutrophils # 3.7 (1.8-7.7) K/mm3 Sodium 138 (137-145) mmol/L Potassium 4.7 (3.6-5.0) mmol/L Chloride 100.8 (98-107) mmol/L Carbon Dioxide 24 (22-30) mmol/L Anion Gap 18 mmol/L BUN 13 (7-17) mg/dL Creatinine 0.5 L (0.7-1.2) mg/dL Estimated GFR > 60 ml/min BUN/Creatinine Ratio 26 % Glucose 106 H (65-100) mg/dL Calcium 9.6 (8.4-10.2) mg/dL Total Bilirubin 0.20 (0.1-1.2) mg/dL AST 28 (5-40) units/L ALT 23 (7-56) units/L Alkaline Phosphatase 84 (35-129) units/L Total Protein 8.0 (6.3-8.2) g/dL Albumin 5.0 (3.9-5) g/dL Albumin/Globulin Ratio 1.7 % - Medical Decision Making Despite the patient's benign. Labs I am very concerned that the patient has an infection of her PICC line. Patient has multiple allergies and is currently only on daptomycin. Patient is to be admitted to the hospital for further management. CT angiogram of the chest is been ordered as well because of the pleuritic chest pain in her high risk of PE. Patient be [facility] to [facility] pitalist service. Critical care attestation.: If time is entered above; I have spent that time in minutes in the direct care of this critically ill patient, excluding procedure time. ED Disposition Clinical Impression: Chest pain Qualifiers: Chest pain type: chest pain on breathing Qualified Code(s): R07.1 - Chest pain on breathing; R07.81 - Pleurodynia PICC line infection Qualifiers: Encounter type: initial encounter Qualified Code(s): T80.219A - Unspecified infection due to central venous catheter, initial encounter Disposition: -09 OP ADMIT IP TO THIS HOSP Is pt being admited?: Yes Condition: Stable Instructions: Chest Pain (ED) Referrals: LUCIEN MORGAN MD [Primary Care Provider] - 3-5 Days Time of Disposition: 17:03
[2018-11-27] MEDS ORDERED: ZOFRAN IV ONE (17:05)
[2018-11-27] MEDS ORDERED: MORPHINE IV ONE (17:05)
[2018-11-27] MEDS ORDERED: MORPHINE ONE (17:06)
[2018-11-27 17:10] LABS: Bilirubin,Urine NEG (Negative); Blood,Urine NEG (Negative); Color,Urine Colorless (Yellow); Protein,Urine <15 mg/dL mg/dL (Negative); Urobilinogen,Urine < 2.0 mg/dL (<2.0)
[2018-11-27] MEDS: DAPTOmycin 500 MG in NACL 0.9% 100 ML IV SCH (18:20)
--- NOTE | 2018-11-27 19:41 | Cat Scan Report ---
FINAL REPORT EXAM: CT ANGIO CHEST HISTORY: Pleural cp, high risk for PE TECHNIQUE: Enhanced CT of the chest at 2.5 mm axial intervals following a pulmonary embolism protoco l. Coronal and sagittal imaging were also obtained. Coronal oblique MIP projections were obtained. Contrast: 100 ml of Omnipaque 300 given IV. PRIORS: CT chest 11/16/2018 FINDINGS: There is no evidence for pulmonary embolism in the main pulmonary artery, right and left pulmonary ar teries or their major distributions. However, CT does not exclude distal pulmonary emboli. Otherwise, the lung parenchyma are expanded and clear with no evidence for parenchymal nodules, infil trates, congestion, or pleural effusion. There is no evidence for mediastinal, hilar, or axillary ad enopathy. Cardiovascular structures are within normal limits. No evidence for ventricular chamber enl argement is seen. Images through the lung bases include the upper abdomen which show no abnormalities of the visualized abdominal viscera. Bony structures demonstrate no focal abnormalities. IMPRESSION: No evidence for pulmonary embolism. Negative CT of the chest. No change
[2018-11-27] MEDS ORDERED: PERCOCET 5/325 PO PRN (21:21)
[2018-11-27] MEDS ORDERED: DILAUDID IV PRN (23:20)
[2018-11-27] MEDS: SODIUM CHLORIDE FLUSH SYRINGE 10 ML IV SCH (23:36)
--- NOTE | 2018-11-28 07:47 | History and Physical Report ---
History of Present Illness Date of admission: 11/27/18 16:53 Chief complaint: My arm hurts, and its red History of present illness: 48 YO Female with GERD, Obesity, HTN, HLD, Osteomyelitis S/P PICC line placement presents to ED for evaluation. Pt states that she has experienced pain and red ness over the past 3 days over her PICC line site, as well as inability to infuse antibiotic through her picc line. Pt seen and evaluated in ED and found to have LUE Cellulitis, as well as PICC line malfunction. Pt admitted to medical floor. Pt denies fever, chillls, CP, Palpitations, NVD, Trauma, or recent ill contacts. Past History Past Medical History: hypertension, hyperlipidemia, other (osteomyelitis) Past Surgical History: Other (Left leg, Pelvis surgery, picc line placement) Social history: . denies: smoking, alcohol abuse, prescription drug abuse Family history: diabetes, hypertension Medications and Allergies Allergies Allergy/AdvReac Type Severity Reaction Status Date / Time aspirin Allergy Swelling Verified 11/27/18 12:43 hydroxyzine HCl Allergy Anaphylaxis Verified 11/27/18 12:43 [From Vistaril] hydroxyzine pamoate Allergy Anaphylaxis Verified 11/27/18 12:43 [From Vistaril] ketorolac tromethamine Allergy Swelling Verified 11/27/18 12:43 [From Toradol] Penicillins Allergy Anaphylaxis Verified 11/27/18 12:43 tramadol Allergy Shortness Verified 11/27/18 12:43 of Breath vancomycin Allergy Rash Verified 11/27/18 12:43 Home Medications Medication Instructions Recorded Confirmed Last Taken Type DAPTOmycin 500 mg IV Q24H vial 11/02/18 Unknown Rx Meloxicam [Mobic] 7.5 mg PO DAILY #30 tablet 11/02/18 Unknown Rx Pravastatin [Pravachol] 20 mg PO QHS #30 tablet 11/02/18 Unknown Rx Prednisone [predniSONE 5 mg (6-Day 5 mg PO .TAPER #1 tab.ds.pk 11/02/18 Unknown Rx Pack, 21 Tabs)] diphenhydrAMINE [Benadryl CAP] 25 mg PO Q6HR PRN #60 capsule 11/02/18 Unknown Rx tiZANidine [Zanaflex] 4 mg PO Q8H PRN #90 tablet 11/02/18 Unknown Rx Oxycodone HCl/Acetaminophen 1 each PO Q6HR PRN #60 tablet 11/03/18 Unknown Rx [Percocet 10/325 mg] Pantoprazole [Protonix TAB] 40 mg PO QDAY #30 tablet 11/18/18 Unknown Rx Active Meds: Active Medications Acetaminophen (Tylenol) 650 mg PO Q4H PRN PRN Reason: Pain MILD(1-3)/Fever >100.5/BURCIAGA Last Admin: 11/27/18 20:30 Dose: 650 mg Documented by: Albuterol (Proventil) 2.5 mg IH Q4HRT PRN PRN Reason: Shortness Of Breath Daptomycin 500 mg/ Sodium (Chloride) 100 mls @ 200 mls/hr IV Q24H JASON; Protocol Last Admin: 11/27/18 18:20 Dose: 200 mls/hr Documented by: Ondansetron HCl (Zofran) 4 mg IV Q8H PRN PRN Reason: Nausea And Vomiting Oxycodone/Acetaminophen (Percocet 5/325) 1 tab PO Q4H PRN PRN Reason: Pain, Moderate (4-6) Last Admin: 11/28/18 04:20 Dose: 1 tab Documented by: Sodium Chloride (Sodium Chloride Flush Syringe 10 Ml) 10 ml IV BID JASON Last Admin: 11/27/18 23:36 Dose: 10 ml Documented by: Sodium Chloride (Sodium Chloride Flush Syringe 10 Ml) 10 ml IV PRN PRN PRN Reason: LINE FLUSH Review of Systems Constitutional: no weight loss, no weight gain, no fever, no chills Ears, nose, mouth and throat: no ear pain, no ear discharge, no tinnitis, no decreased hearing Breasts: no change in shape, no swelling, no mass Cardiovascular: no chest pain, no orthopnea, no palpitations, no edema Respiratory: no cough, no cough with sputum, no hemoptysis Gastrointestinal: no nausea, no diarrhea, no change in bowel habits Genitourinary Female: no pelvic pain, no menorrhagia, no urinary frequency Rectal: no pain, no incontinence, no hemorrhoids Musculoskeletal: no neck pain, no arm numbness/tingling, no shooting leg pain Integumentary: no rash, no redness, no wounds Neurological: no paralysis, no parathesias, no tingling Psychiatric: no anxiety, no change in sleep habits, no insomnia Endocrine: no cold intolerance, no heat intolerance, no polydipsia Hematologic/Lymphatic: no easy bruising, no easy bleeding Allergic/Immunologic: persistent infections, no allergic rhinitis Exam - Constitutional Vitals: Temp Pulse Resp BP Pulse Ox 97.8 F 86 18 142/86 93 11/28/18 05:43 11/28/18 05:43 11/28/18 05:43 11/28/18 05:43 11/28/18 05:43 General appearance: Present: mild distress - EENT Eyes: Present: PERRL ENT: hearing intact, clear oral mucosa - Neck Neck: Present: supple, normal ROM - Respiratory Respiratory effort: normal Respiratory: bilateral: CTA - Cardiovascular Heart Sounds: Present: S1 & S2. Absent: rub, click - Extremities Extremities: pulses symmetrical, No edema Extremity abnormal: erythema, tenderness (Left arm) Peripheral Pulses: within normal limits - Abdominal General gastrointestinal: Present: soft, non-tender, non-distended, normal bowel sounds Female genitourinary: Present: normal - Integumentary Integumentary: Present: clear, warm, dry - Musculoskeletal Musculoskeletal: gait normal, strength equal bilaterally - Psychiatric Psychiatric: appropriate mood/affect, intact judgment & insight - Neurologic Neurologic: CNII-XII intact, moves all extremities Results - Labs CBC & Chem 7: 11/27/18 14:54 11/27/18 14:54 Labs: Abnormal lab results 11/27/18 11/27/18 Range/Units 14:54 14:54 RDW 15.3 H (13.2-15.2) % Creatinine 0.5 L (0.7-1.2) mg/dL Glucose 106 H (65-100) mg/dL Assessment and Plan - Patient Problems (1) PICC line infection Current Visit: Yes Status: Acute Qualifiers: Encounter type: initial encounter Qualified Code(s): T80.219A - Unspecified infection due to central venous catheter, initial encounter Plan to address problem: IV antibiotic therapy, PICC line infection, PICC Line nurse consulted (2) Osteomyelitis Current Visit: Yes Status: Acute Qualifiers: Osteomyelitis location: femur Laterality: left Plan to address problem: IV antibiotic therapy, continue Daptomycin, supportive care, pain control, (3) Cellulitis Current Visit: Yes Status: Acute Qualifiers: Site of cellulitis of extremity: upper extremity Laterality: left Plan to address problem: IV antibiotic therapy, blood cultures, cbc, PICC line evaluation (4) DVT prophylaxis Current Visit: Yes Status: Acute Plan to address problem: scd to ble while in bed
--- NOTE | 2018-11-28 10:04 | Vascular Lab Report ---
FINAL REPORT EXAM: VL VENOUS DUPLEX UE RT HISTORY: r/o dvt COMPARISON: None. TECHNIQUE: Duplex Doppler imaging of the veins of the right upper extremity was performed. FINDINGS: The veins of the right upper extremity are patent, compressible, and demonstrate normal waveforms and augmentation. IMPRESSION: No evidence of deep venous thrombosis of the right upper extremity.
[2018-11-28] MEDS: SODIUM CHLORIDE FLUSH SYRINGE 10 ML IV SCH ×2 (10:20→21:07)
[2018-11-28] MEDS ORDERED: MORPHINE IV PRN (10:30)
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
--- NOTE | 2018-11-28 14:13 | Progress Note ---
Assessment and Plan Assessment and plan: (1) PICC line infection Current Visit: Yes Status: Acute Qualifiers: Encounter type: initial encounter Qualified Code(s): T80.219A - Unspecified infection due to central venous catheter, initial encounter Plan to address problem: IV antibiotic therapy, PICC line infection, PICC Line nurse consulted Right upper extremity ultrasound negative for DVT Discontinue PICC line, N placement ID consult. (2) Osteomyelitis Current Visit: Yes Status: Acute Qualifiers: Osteomyelitis location: femur Laterality: left Plan to address problem: IV antibiotic therapy, continue Daptomycin, supportive care, pain control, (3) Cellulitis Current Visit: Yes Status: Acute Qualifiers: Site of cellulitis of extremity: upper extremity Laterality: left Plan to address problem: IV antibiotic therapy, blood cultures, cbc, PICC line evaluation (4) DVT prophylaxis Current Visit: Yes Status: Acute Plan to address problem: scd to ble while in bed History Interval history: Patient seen and examined medical records reviewed No new events reported by the nursing staff Patient alert awake oriented Asking for more pain medications Mild swelling of her right upper extremity with the PICC line is Ultrasound NEGATIVE FOR DVT, Hospitalist Physical - Constitutional Vitals: Temp Pulse Resp BP Pulse Ox 97.8 F 91 H 20 151/95 97 11/28/18 11:24 11/28/18 11:24 11/28/18 11:24 11/28/18 11:24 11/28/18 11:24 General appearance: Present: mild distress, well-nourished, cachectic - EENT Eyes: Present: PERRL, EOM intact - Neck Neck: Present: supple, normal ROM - Respiratory Respiratory effort: normal Respiratory: negative: diminished, rales, rhonchi, wheezing - Cardiovascular Rhythm: regular Heart Sounds: Present: S1 & S2 - Extremities Extremities: no ischemia, No edema - Abdominal General gastrointestinal: soft, non-tender, non-distended, normal bowel sounds - Integumentary Integumentary: Present: clear, warm - Psychiatric Psychiatric: appropriate mood/affect, cooperative - Neurologic Neurologic: CNII-XII intact, moves all extremities Results - Labs CBC & Chem 7: 11/27/18 14:54 11/27/18 14:54 Labs: Laboratory Last Values WBC 6.3 K/mm3 (4.5-11.0) 11/27/18 14:54 RBC 4.41 M/mm3 (3.65-5.03) 11/27/18 14:54 Hgb 13.0 gm/dl (10.1-14.3) 11/27/18 14:54 Hct 40.2 % (30.3-42.9) 11/27/18 14:54 MCV 91 fl (79-97) 11/27/18 14:54 MCH 30 pg (28-32) 11/27/18 14:54 MCHC 32 % (30-34) 11/27/18 14:54 RDW 15.3 % (13.2-15.2) H 11/27/18 14:54 Plt Count 354 K/mm3 (140-440) 11/27/18 14:54 Lymph % (Auto) 29.8 % (13.4-35.0) 11/27/18 14:54 [place] % (Auto) 7.0 % (0.0-7.3) 11/27/18 14:54 Eos % (Auto) 4.1 % (0.0-4.3) 11/27/18 14:54 Baso % (Auto) 1.0 % (0.0-1.8) 11/27/18 14:54 Lymph # 1.9 K/mm3 (1.2-5.4) 11/27/18 14:54 [place] # 0.4 K/mm3 (0.0-0.8) 11/27/18 14:54 Eos # 0.3 K/mm3 (0.0-0.4) 11/27/18 14:54 Baso # 0.1 K/mm3 (0.0-0.1) 11/27/18 14:54 Seg Neutrophils % 58.1 % (40.0-70.0) 11/27/18 14:54 Seg Neutrophils # 3.7 K/mm3 (1.8-7.7) 11/27/18 14:54 Sodium 138 mmol/L (137-145) 11/27/18 14:54 Potassium 4.7 mmol/L (3.6-5.0) 11/27/18 14:54 Chloride 100.8 mmol/L (98-107) 11/27/18 14:54 Carbon Dioxide 24 mmol/L (22-30) 11/27/18 14:54 Anion Gap 18 mmol/L 11/27/18 14:54 BUN 13 mg/dL (7-17) 11/27/18 14:54 Creatinine 0.5 mg/dL (0.7-1.2) L 11/27/18 14:54 Estimated GFR > 60 ml/min 11/27/18 14:54 BUN/Creatinine Ratio 26 % 11/27/18 14:54 Glucose 106 mg/dL (65-100) H 11/27/18 14:54 Lactic Acid 1.00 mmol/L (0.7-2.0) 11/27/18 20:44 Calcium 9.6 mg/dL (8.4-10.2) 11/27/18 14:54 Total Bilirubin 0.20 mg/dL (0.1-1.2) 11/27/18 14:54 AST 28 units/L (5-40) 11/27/18 14:54 ALT 23 units/L (7-56) 11/27/18 14:54 Alkaline Phosphatase 84 units/L (35-129) 11/27/18 14:54 Troponin T < 0.010 ng/mL (0.00-0.029) 11/27/18 16:43 Total Protein 8.0 g/dL (6.3-8.2) 11/27/18 14:54 Albumin 5.0 g/dL (3.9-5) 11/27/18 14:54 Albumin/Globulin Ratio 1.7 % 11/27/18 14:54 Urine Color Colorless (Yellow) 11/27/18 17:00 Urine Turbidity Clear (Clear) 11/27/18 17:00 Urine pH 6.0 (5.0-7.0) 11/27/18 17:00 Ur Specific [place] 1.004 (1.003-1.030) 11/27/18 17:00 Urine Protein <15 mg/dl mg/dL (Negative) 11/27/18 17:00 Urine Glucose (UA) Neg mg/dL (Negative) 11/27/18 17:00 Urine Ketones Neg mg/dL (Negative) 11/27/18 17:00 Urine Blood Neg (Negative) 11/27/18 17:00 Urine Nitrite Neg (Negative) 11/27/18 17:00 Urine Bilirubin Neg (Negative) 11/27/18 17:00 Urine Urobilinogen < 2.0 mg/dL (<2.0) 11/27/18 17:00 Ur Leukocyte Esterase Neg (Negative) 11/27/18 17:00 Urine WBC (Auto) 1.0 /HPF (0.0-6.0) 11/27/18 17:00 Urine RBC (Auto) 3.0 /HPF (0.0-6.0) 11/27/18 17:00 U Epithel Cells (Auto) < 1.0 /HPF (0-13.0) 11/27/18 17:00
[2018-11-28] MEDS: DILAUDID IV PRN ×2 (14:43→21:05)
[2018-11-28] MEDS ORDERED: PRAVACHOL PO SCH (22:00)
[2018-11-28] MEDS: DAPTOmycin 500 MG in NACL 0.9% 100 ML IV SCH (23:22)
[2018-11-29] MEDS: DILAUDID IV PRN ×2 (06:41→12:42)
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
[2018-11-29] MEDS ORDERED: PROTONIX PO SCH (10:00)
[2018-11-29] MEDS: SODIUM CHLORIDE FLUSH SYRINGE 10 ML IV SCH (10:09)
[2018-11-29 11:41] VITALS: BP 145/88
--- NOTE | 2018-11-29 13:38 | Discharge Summary ---
Providers - Providers Date of Admission: 11/27/18 16:53 Date of discharge: 11/29/18 Attending physician: GIO ACEVES 11/28/18 07:54 Consult to PICC Line RN [CONS] Routine Reason For Exam: malfunction Type Line:: PICC Primary care physician: LUCIEN MORGAN Hospitalization Reason for admission: PICC line infection Condition: Stable Pertinent studies: CTA chest; no PE chest x-ray; normal study Her extremity venous Doppler; no DVT Hospital course: Discharge diagnosis; --PICC line infection; removed --Cellulitis; significantly improved discharged on antibiotics --History of osteomyelitis; I did recommend daptomycin in the past, however As PICC line was infected and removed, change antibiotics to oral Zyvox for 14 days --Obesity; advise weight reduction Brief history and hospital course; 48-year-old female patient with significant past medical history of obesity hypertension dyslipidemia osteomyelitis status post PICC line placement presented to the emergency room with possible decline site infection Patient was admitted symptomatically managed, continued her previous long-term antibiotic daptomycin which was recommended by ID during previous admission, PICC line was discontinued, evaluated by ID, ID recommended Zyvox instead of daptomycin, An informed that patient does not need new PICC line Today patient is comfortable no new complaints Vital signs stable, Physical examination unremarkable ID cleared for discharge and follow up with the primary care physician and ID per schedule Patient is hemodynamically and clinically stable at discharge Case management assisted with discharge planning and in securing 14 days of Zyvox 600 twice a day Discharge medications; Zyvox 600 mg by mouth twice a day x 14 days Zanaflex 4 mg by mouth every 8 hours when necessary Protonix 40 by mouth daily Prednisone tapering doses Pravastatin 20 mg daily at bedtime Oxycodone acetaminophen Mobic Benadryl Disposition: - TO HOME OR SELFCARE Time spent for discharge: 32 min Core Measure Documentation - Palliative Care Palliative Care/ Comfort Measures: Not Applicable - Core Measures Any of the following diagnoses?: none Exam - Constitutional Vitals: Temp Pulse Resp BP Pulse Ox 97.9 F 100 H 20 145/88 96 11/29/18 11:39 11/29/18 05:56 11/29/18 11:39 11/29/18 11:39 11/29/18 10:00 General appearance: Present: no acute distress, well-nourished - EENT Eyes: Present: PERRL, EOM intact - Neck Neck: Present: supple, normal ROM - Respiratory Respiratory effort: normal Respiratory: negative: rales, rhonchi, wheezing - Cardiovascular Rhythm: regular Heart Sounds: Present: S1 & S2 - Extremities Extremities: no ischemia, No edema - Abdominal General gastrointestinal: Present: soft, non-tender, non-distended, normal bowel sounds - Integumentary Integumentary: Present: clear, warm - Musculoskeletal Musculoskeletal: strength equal bilaterally - Psychiatric Psychiatric: appropriate mood/affect, cooperative - Neurologic Neurologic: CNII-XII intact, moves all extremities Plan Activity: advance as tolerated Diet: regular Additional Instructions: advised to comply with meds and f/u visits Follow up with: LUCIEN MORGAN MD [Primary Care Provider] - 3-5 Days KATIE ALBRECHT MD [Staff Physician] - 7 Days Prescriptions: Linezolid [Zyvox] 600 mg PO BID #26 tablet
== END 2018-11-29 15:30 | disposition home or self-care (01) | DRG 315 ==
LOC: ED 12:40 → 3A 16:53
PROVIDERS: ADMIT Internal Medicine; ATTEND Internal Medicine
PROC: 05PYX3Z Removal of Infusion Device from Upper Vein, External Approach (ICD-10-PCS; principal; 2018-11-28)
DX: T80.219A Unspecified infection due to central venous catheter, initial encounter (principal); L03.114 Cellulitis of left upper limb; M00.862 Arthritis due to other bacteria, left knee; M86.8X8 Other osteomyelitis, other site; I10 Essential (primary) hypertension; E78.00 Pure hypercholesterolemia, unspecified; K21.9 Gastro-esophageal reflux disease without esophagitis; E66.9 Obesity, unspecified; G89.29 Other chronic pain; R07.1 Chest pain on breathing; R07.81 Pleurodynia; Z79.899 Other long term (current) drug therapy; Z79.2 Long term (current) use of antibiotics; Z88.1 Allergy status to other antibiotic agents; Z88.0 Allergy status to penicillin; Z88.7 Allergy status to serum and vaccine; Z90.710 Acquired absence of both cervix and uterus; Z87.891 Personal history of nicotine dependence; Z68.31 Body mass index [BMI] 31.0-31.9, adult; Z83.3 Family history of diabetes mellitus; Z82.49 Family history of ischemic heart disease and other diseases of the circulatory system; Y83.8 Other surgical procedures as the cause of abnormal reaction of the patient, or of later complication, without mention of misadventure at the time of the procedure; Y92.098 Other place in other non-institutional residence as the place of occurrence of the external cause
CPT/HCPCS: 36415; 71046; 71275; 80053; 81001; 82140; 84484; 85025; 86140; 87040; 87116; G0378; A9270-GY; J0878; J1170; J2270; J2405; J7030; Q9967

== ENCOUNTER 2019-01-28 09:02 | Emergency (ER) | payer MEDICAID ==
[2019-01-28] MEDS ORDERED: NACL 0.9% 1000 ML 1,000 ML IV ONE ×2 (09:22)
[2019-01-28] MEDS ORDERED: ZOFRAN IV ONE (09:30)
[2019-01-28] MEDS ORDERED: SUBLIMAZE IV ONE ×6 (09:30→13:00)
--- NOTE | 2019-01-28 09:35 | Emergency Department Report ---
HPI - General Chief Complaint: Abdominal Pain Time Seen by Provider: 01/28/19 09:21 - HPI HPI: Room 25 The patient is a 48-year-old female presenting with a chief complaint of abdominal pain. The patient states her past 4 days she has had pain in the pe riumbilical and right lower quadrant. Says she's also had nausea and vomiting and diarrhea past 4 days. The patient states she measured fever at home of 104.7F. Patient admits to urinary urgency and dysuria for the past 4 days. The patient states she gets dizzy when she walks. She currently gives her abdominal pain a score of 9/10 Location: Abdomen Duration: 4 days Quality: Pain Severity: 9/10 Modifying factors: [see above] Context: [see above] Mode of transportation: [not driving] ED Past Medical Hx - Past Medical History Previous Medical History?: Yes Hx Arthritis: Yes Additional medical history: chronic pain, hypercholesterolemia, sepsis in 2018, infected hardware in LLL removed 11/2018. spinal stenosis - Surgical History Past Surgical History?: Yes Additional Surgical History: L leg fx repair. hyst. pelvic fx repair. Pt became septic due to infection caused by metal in LLL: removed early 2018 - Family History Family history: no significant - Social History Smoking Status: Former Smoker (none 20 years) Substance Use Type: None - Medications Home Medications: Home Medications Medication Instructions Recorded Confirmed Last Taken Type Meloxicam [Mobic] 7.5 mg PO DAILY #30 tablet 11/02/18 01/28/19 Unknown Rx Pravastatin [Pravachol] 20 mg PO QHS #30 tablet 11/02/18 01/28/19 Unknown Rx Prednisone [predniSONE 5 mg (6-Day 5 mg PO .TAPER #1 tab.ds.pk 11/02/18 01/28/19 Unknown Rx Pack, 21 Tabs)] diphenhydrAMINE [Benadryl CAP] 25 mg PO Q6HR PRN #60 capsule 11/02/18 01/28/19 Unknown Rx tiZANidine [Zanaflex] 4 mg PO Q8H PRN #90 tablet 11/02/18 01/28/19 Unknown Rx Oxycodone HCl/Acetaminophen 1 each PO Q6HR PRN #60 tablet 11/03/18 01/28/19 Unknown Rx [Percocet 10/325 mg] Pantoprazole [Protonix TAB] 40 mg PO QDAY #30 tablet 11/18/18 01/28/19 Unknown Rx Linezolid [Zyvox] 600 mg PO BID #26 tablet 11/29/18 01/28/19 Unknown Rx HYDROcodone/APAP 5-325 [Tillar 1 - 2 each PO Q6HR PRN #14 tablet 01/28/19 Unknown Rx 5/325] Promethazine [Phenergan] 25 mg PO Q6HR PRN #20 tab 01/28/19 Unknown Rx levoFLOXacin [Levaquin] 750 mg PO QDAY #10 tablet 01/28/19 Unknown Rx metroNIDAZOLE [Flagyl] 500 mg PO Q8HR #30 tablet 01/28/19 Unknown Rx ED Review of Systems ROS: Stated complaint: ABD PAIN Other details as noted in HPI Constitutional: fever Eyes: denies: eye pain ENT: denies: throat pain Respiratory: no symptoms reported Cardiovascular: denies: chest pain Endocrine: no symptoms reported Gastrointestinal: abdominal pain, nausea, vomiting, diarrhea Genitourinary: urgency, dysuria Musculoskeletal: denies: back pain Neurological: denies: headache Physical Exam - Physical Exam Physical Exam: GENERAL: The patient is well-developed well-nourished female lying on stretcher not appearing to be in acute distress. [] HEENT: Normocephalic. Atraumatic. Extraocular motions are intact. Patient has moist mucous membranes. NECK: Supple. Trachea midline CHEST/LUNGS: Clear to auscultation. There is no respiratory distress noted. HEART/CARDIOVASCULAR: Regular. There is no tachycardia. There is no gallop rub or murmur. ABDOMEN: Abdomen is soft, with discomfort to palpation in the midepigastric and right lower quadrant. Patient has normal bowel sounds. There is no abdominal distention. SKIN: There is no rash. There is no edema. There is no diaphoresis. NEURO: The patient is awake, alert, and oriented. The patient is cooperative. The patient has no focal neurologic deficits. The patient has normal speech MUSCULOSKELETAL: There is no evidence of acute injury. ED Medical Decision Making - Lab Data Result diagrams: 01/28/19 09:29 01/28/19 09:29 Laboratory Tests 01/28/19 01/28/19 01/28/19 09:29 09:29 09:29 WBC 11.2 H RBC 4.08 Hgb 11.7 Hct 35.4 MCV 87 MCH 29 MCHC 33 RDW 14.6 Plt Count 319 Lymph % (Auto) 8.3 L [place] % (Auto) 14.0 H Eos % (Auto) 0.0 Baso % (Auto) 0.2 Lymph # 0.9 L [place] # 1.6 H Eos # 0.0 Baso # 0.0 Seg Neutrophils % 77.5 H Seg Neutrophils # 8.7 H Sodium 133 L Potassium 4.3 Chloride 98.3 Carbon Dioxide 22 Anion Gap 17 BUN 12 Creatinine 0.7 Estimated GFR > 60 BUN/Creatinine Ratio 17 Glucose 147 H Lactic Acid 1.30 Calcium 8.2 L Total Bilirubin 0.20 AST 18 ALT 16 Alkaline Phosphatase 84 Total Protein 6.8 Albumin 3.3 L Albumin/Globulin Ratio 0.9 Lipase 21 Urine Color Urine Turbidity Urine pH Ur Specific [place] Urine Protein Urine Glucose (UA) Urine Ketones Urine Blood Urine Nitrite Urine Bilirubin Urine Urobilinogen Ur Leukocyte Esterase Urine WBC (Auto) Urine RBC (Auto) U Epithel Cells (Auto) Urine Bacteria (Auto) Hyaline Casts Urine Mucus 01/28/19 01/28/19 09:48 12:05 WBC RBC Hgb Hct MCV MCH MCHC RDW Plt Count Lymph % (Auto) [place] % (Auto) Eos % (Auto) Baso % (Auto) Lymph # [place] # Eos # Baso # Seg Neutrophils % Seg Neutrophils # Sodium Potassium Chloride Carbon Dioxide Anion Gap BUN Creatinine Estimated GFR BUN/Creatinine Ratio Glucose Lactic Acid 1.00 Calcium Total Bilirubin AST ALT Alkaline Phosphatase Total Protein Albumin Albumin/Globulin Ratio Lipase Urine Color [place] Urine Turbidity Cloudy Urine pH 5.0 Ur Specific [place] 1.033 H Urine Protein 100 mg/dl Urine Glucose (UA) Neg Urine Ketones Tr Urine Blood Neg Urine Nitrite Neg Urine Bilirubin Neg Urine Urobilinogen < 2.0 Ur Leukocyte Esterase Neg Urine WBC (Auto) 5.0 Urine RBC (Auto) 9.0 U Epithel Cells (Auto) 3.0 Urine Bacteria (Auto) 1+ Hyaline Casts 1 Urine Mucus 3+ - Radiology Data Radiology results: report reviewed (CT abdomen and pelvis), image reviewed (CT abdomen and pelvis) [facility] [address] [place] [address] Cat Scan Report Signed Patient: NAHID SHEN MR#: [id number] : 1970 Acct:[id number] Age/Sex: 48 / F ADM Date: 01/28/19 Loc: ED Attending Dr: Ordering Physician: MELLO DUNCAN MD Date of Service: 01/28/19 Procedure(s): CT abdomen pelvis w con Accession Number(s): [id number] cc: MELLO DUNCAN MD CT ABDOMEN PELVIS WITH CONTRAST: HISTORY: Right lower quadrant abdominal pain, nausea, vomiting, diarrhea. COMPARISON: No relevant comparison. TECHNIQUE: Helical CT in 1.25mm intervals following IV contrast. Sagittal and coronal reconstructions. FINDINGS: Lung bases: Normal. Liver: Normal. Biliary system: Normal. Pancreas: Normal. Spleen: Normal. Kidneys/ureters/bladder: Within normal limits. 1 cm exophytic cyst at the inferior pole of the left kidney is noted. Adrenal glands: Normal. Aorta: Normal. Intestines: No oral cont rast was administered which limits this exam. Mild circumferential thickening of the ascending colon is identified. There is mild pericolonic fat stranding and a few scattered borderline right lower quadrant mesenteric lymph nodes. No evidence for obstruction, free air or abscess. The remaining bowel loops are unremarkable. Appendix: Normal. Pelvic viscera: Hysterectomy. Ascites: Small pelvic ascites. No abscess. Adenopathy: None. Musculoskeletal: Intact. Minimal lumbar spondylosis. IMPRESSION: There is mild nonspecific circumferential thickening of the ascending colon with mild surrounding inflammatory changes and small pelvic ascites. These findings suggest a focal colitis. Please correlate with the patient's clinical presentation. Transcribed By: TTR Dictated By: SAIGE GRISSOM JR, MD Electronically Authenticated By: SAIGE GRISSOM JR, MD Signed Date/Time: 01/28/19 1233 DD/ 1230 TD/TT: 01/28/19 1233 - Differential Diagnosis gastroenteritis, pyelonephritis, appendicitis, enteritis Critical care attestation.: If time is entered above; I have spent that time in minutes in the direct care of this critically ill patient, excluding procedure time. ED Disposition Clinical Impression: Acute colitis, Acute abdominal pain Disposition: DC-01 TO HOME OR SELFCARE Is pt being admited?: No Does the pt Need Aspirin: No Condition: Stable Instructions: Abdominal Pain (ED), Infectious Colitis (ED) Additional Instructions: Return to the emergency department immediately should you develop worsening symptoms, fever, inability to tolerate food or liquid or any other concerns. Prescriptions: metroNIDAZOLE [Flagyl] 500 mg PO Q8HR #30 tablet levoFLOXacin [Levaquin] 750 mg PO QDAY #10 tablet HYDROcodone/APAP 5-325 [Tillar 5/325] 1 - 2 each PO Q6HR PRN #14 tablet PRN Reason: Pain Promethazine [Phenergan] 25 mg PO Q6HR PRN #20 tab PRN Reason: Nausea [facility] [Primary Care Provider] - 3-5 Days DENZEL BOWERS MD [Staff Physician] - 3-5 Days (Dr. Bowers is a management accounts manager. Please follow up with him for further evaluation) Time of Disposition: 12:59
[2019-01-28 09:53] LABS: Basophils % (Auto) 0.2 % (0.0-1.8); Hematocrit 35.4 % (30.3-42.9); Hemoglobin 11.7 gm/dl (10.1-14.3); Lymphocytes # (Auto) 0.9 K/mm3 (1.2-5.4); Lymphocytes % (Auto) 8.3 % (13.4-35.0); Mean Corpuscular HGB Conc 33 % (30-34); Mean Corpuscular Volume 87 fl (79-97); Monocytes # (Auto) 1.6 K/mm3 (0.0-0.8); Platelet Count 319 K/mm3 (140-440); Red Blood Count 4.08 M/mm3 (3.65-5.03); Red Cell Distribution Width 14.6 % (13.2-15.2)
[2019-01-28 10:14] LABS: Bacteria,Urine 1+ /HPF (Negative); Bilirubin,Urine NEG (Negative); Blood,Urine NEG (Negative); Color,Urine Amber (Yellow); Hyaline Casts,Urine 1 /LPF; Mucus,Urine 3+ /HPF; Urobilinogen,Urine < 2.0 mg/dL (<2.0)
[2019-01-28 10:27] LABS: Alanine Aminotransferase 16 units/L (7-56); Albumin 3.3 g/dL (3.9-5); BUN/Creatinine Ratio 17; Blood Urea Nitrogen 12 mg/dL (7-17); Calcium 8.2 mg/dL (8.4-10.2); Hemolysis Index 14
[2019-01-28 12:18] VITALS: BP 112/70
--- NOTE | 2019-01-28 12:38 | Cat Scan Report ---
CT ABDOMEN PELVIS WITH CONTRAST: HISTORY: Right lower quadrant abdominal pain, nausea, vomiting, diarrhea. COMPARISON: No relevant comparison. TECHNIQUE: Helical CT in 1.25mm intervals following IV contrast. Sagittal and coronal reconstructions. FINDINGS: Lung bases: Normal. Liver: Normal. Biliary system: Normal. Pancreas: Normal. Spleen: Normal. Kidneys/ureters/bladder: Within normal limits. 1 cm exophytic cyst at the inferior pole of the left kidney is noted. Adrenal glands: Normal. Aorta: Normal. Intestines: No oral contrast was administered which limits this exam. Mild circumferential thickening of the ascending colon is identified. There is mild pericolonic fat stranding and a few scattered borderline right lower quadrant mesenteric lymph nodes. No evidence for obstruction, free air or abscess. The remaining bowel loops are unremarkable. Appendix: Normal. Pelvic viscera: Hysterectomy. Ascites: Small pelvic ascites. No abscess. Adenopathy: None. Musculoskeletal: Intact. Minimal lumbar spondylosis. IMPRESSION: There is mild nonspecific circumferential thickening of the ascending colon with mild surrounding inflammatory changes and small pelvic ascites. These findings suggest a focal colitis. Please correlate with the patient's clinical presentation.
[2019-01-28] MEDS ORDERED: LEVAQUIN PO ONE (12:54)
[2019-01-28] MEDS ORDERED: FLAGYL PO ONE (12:54)
== END 2019-01-28 13:23 | disposition home or self-care (01) ==
LOC: ED 09:02
DX: K52.9 Noninfective gastroenteritis and colitis, unspecified (principal); M19.90 Unspecified osteoarthritis, unspecified site; E78.00 Pure hypercholesterolemia, unspecified; G89.29 Other chronic pain; Z87.891 Personal history of nicotine dependence
CPT/HCPCS: 36415; 74177; 80053; 81001; 82140; 83690; 85025; 87040; 96361; 96374; 96375; 96376; 99284; J2405; J3010; Q9967

== ENCOUNTER 2019-02-15 16:09 | Inpatient (IN) | payer MEDICAID ==
--- NOTE | 2019-02-15 16:29 | Emergency Department Report ---
Blank Doc - Documentation Documentation: states that she has an abscess to the gluteal cleft that began last week states she stuck a needle into it yesterday denies any drainage states she has had fever last took anti-pyretic two hours ago never had before PMHx osteoporesis, DDD, arthritis non smoker non drinker no drug
[2019-02-15] MEDS ORDERED: ZOFRAN IV ONE (19:37)
[2019-02-15] MEDS ORDERED: NACL 0.9% 1000 ML 1,000 ML IV ONE (19:37)
[2019-02-15] MEDS ORDERED: MORPHINE IV ONE (19:37)
[2019-02-15] MEDS ORDERED: CLEOCIN 900 MG/50 mL 900 MG/50 ML BAG IV ONE (19:42)
[2019-02-15 20:07] LABS: Hematocrit 36.9 % (30.3-42.9); Hemoglobin 11.9 gm/dl (10.1-14.3); Mean Corpuscular HGB Conc 32 % (30-34); Mean Corpuscular Volume 88 fl (79-97); Platelet Count 521 K/mm3 (140-440); Red Blood Count 4.18 M/mm3 (3.65-5.03); Red Cell Distribution Width 15.2 % (13.2-15.2)
--- NOTE | 2019-02-15 20:12 | Emergency Department Report ---
- General Chief complaint: Skin/Abscess/Foreign Body Stated complaint: BUMP ON BACK/FEVER/PAIN Time Seen by Provider: 02/15/19 16:26 Source: patient Mode of arrival: Ambulatory Limitations: No Limitations - History of Present Illness Initial comments: states that she has an abscess to the gluteal cleft that began last week states she stuck a needle into it yesterday denies any drainage states she has had fever last took anti-pyretic two hours ago never had before PMHx osteoporesis, DDD, arthritis MD complaint: abscess/boil Onset/Timin -: month(s) Tetanus Up to Date: yes Location: buttocks Severity: moderate Severity scale (0 -10): 6 Quality: sharp Consistency: constant Improves with: none Worsens with: palpation, movement Context: recent antibiotic (levaquin and flagyl) Associated symptoms: fever, chills, itching, nausea, malaise Treatments Prior to Arrival: none - Related Data Previous Rx's Medication Instructions Recorded Last Taken Type Meloxicam [Mobic] 7.5 mg PO DAILY #30 tablet 11/02/18 Unknown Rx Pravastatin [Pravachol] 20 mg PO QHS #30 tablet 11/02/18 Unknown Rx Prednisone [predniSONE 5 mg (6-Day 5 mg PO .TAPER #1 tab.ds.pk 11/02/18 Unknown Rx Pack, 21 Tabs)] diphenhydrAMINE [Benadryl CAP] 25 mg PO Q6HR PRN #60 capsule 11/02/18 Unknown Rx tiZANidine [Zanaflex] 4 mg PO Q8H PRN #90 tablet 11/02/18 Unknown Rx Oxycodone HCl/Acetaminophen 1 each PO Q6HR PRN #60 tablet 11/03/18 Unknown Rx [Percocet 10/325 mg] Pantoprazole [Protonix TAB] 40 mg PO QDAY #30 tablet 11/18/18 Unknown Rx Linezolid [Zyvox] 600 mg PO BID #26 tablet 11/29/18 Unknown Rx HYDROcodone/APAP 5-325 [[place] 1 - 2 each PO Q6HR PRN #14 tablet 01/28/19 Unknown Rx 5/325] Promethazine [Phenergan] 25 mg PO Q6HR PRN #20 tab 01/28/19 Unknown Rx levoFLOXacin [Levaquin] 750 mg PO QDAY #10 tablet 01/28/19 Unknown Rx metroNIDAZOLE [Flagyl] 500 mg PO Q8HR #30 tablet 01/28/19 Unknown Rx Allergies Allergy/AdvReac Type Severity Reaction Status Date / Time aspirin Allergy Swelling Verified 02/15/19 16:10 hydroxyzine HCl Allergy Anaphylaxis Verified 02/15/19 16:10 [From Vistaril] hydroxyzine pamoate Allergy Anaphylaxis Verified 02/15/19 16:10 [From Vistaril] ketorolac tromethamine Allergy Swelling Verified 02/15/19 16:10 [From Toradol] Penicillins Allergy Anaphylaxis Verified 02/15/19 16:10 tramadol Allergy Shortness Verified 02/15/19 16:10 of Breath vancomycin Allergy Rash Verified 02/15/19 16:10 Abscess Boil HPI - HPI Chief Complaint: Skin/Abscess/Foreign Body Stated Complaint: BUMP ON BACK/FEVER/PAIN Time Seen by Provider: 02/15/19 16:26 Home Medications: Previous Rx's Medication Instructions Recorded Last Taken Type Meloxicam [Mobic] 7.5 mg PO DAILY #30 tablet 11/02/18 Unknown Rx Pravastatin [Pravachol] 20 mg PO QHS #30 tablet 11/02/18 Unknown Rx Prednisone [predniSONE 5 mg (6-Day 5 mg PO .TAPER #1 tab.ds.pk 11/02/18 Unknown Rx Pack, 21 Tabs)] diphenhydrAMINE [Benadryl CAP] 25 mg PO Q6HR PRN #60 capsule 11/02/18 Unknown Rx tiZANidine [Zanaflex] 4 mg PO Q8H PRN #90 tablet 11/02/18 Unknown Rx Oxycodone HCl/Acetaminophen 1 each PO Q6HR PRN #60 tablet 11/03/18 Unknown Rx [Percocet 10/325 mg] Pantoprazole [Protonix TAB] 40 mg PO QDAY #30 tablet 11/18/18 Unknown Rx Linezolid [Zyvox] 600 mg PO BID #26 tablet 11/29/18 Unknown Rx HYDROcodone/APAP 5-325 [[place] 1 - 2 each PO Q6HR PRN #14 tablet 01/28/19 Unknown Rx 5/325] Promethazine [Phenergan] 25 mg PO Q6HR PRN #20 tab 01/28/19 Unknown Rx levoFLOXacin [Levaquin] 750 mg PO QDAY #10 tablet 01/28/19 Unknown Rx metroNIDAZOLE [Flagyl] 500 mg PO Q8HR #30 tablet 01/28/19 Unknown Rx Allergies/Adverse Reactions: Allergies Allergy/AdvReac Type Severity Reaction Status Date / Time aspirin Allergy Swelling Verified 02/15/19 16:10 hydroxyzine HCl Allergy Anaphylaxis Verified 02/15/19 16:10 [From Vistaril] hydroxyzine pamoate Allergy Anaphylaxis Verified 02/15/19 16:10 [From Vistaril] ketorolac tromethamine Allergy Swelling Verified 02/15/19 16:10 [From Toradol] Penicillins Allergy Anaphylaxis Verified 02/15/19 16:10 tramadol Allergy Shortness Verified 02/15/19 16:10 of Breath vancomycin Allergy Rash Verified 02/15/19 16:10 ED Review of Systems ROS: Stated complaint: BUMP ON BACK/FEVER/PAIN Other details as noted in HPI Constitutional: chills, fever Eyes: denies: eye pain, eye discharge, vision change ENT: denies: ear pain, throat pain Respiratory: denies: cough, shortness of breath, wheezing Cardiovascular: denies: chest pain, palpitations Endocrine: no symptoms reported Gastrointestinal: abdominal pain, nausea. denies: diarrhea, constipation Genitourinary: other (abscess buttocks ). denies: urgency, dysuria, frequency, hematuria, discharge Musculoskeletal: denies: back pain, joint swelling, arthralgia Skin: denies: rash, lesions Neurological: denies: headache, weakness, paresthesias Psychiatric: denies: anxiety, depression Hematological/Lymphatic: denies: easy bleeding, easy bruising ED Past Medical Hx - Past Medical History Hx Hypertension: Yes Hx Heart Attack/AMI: No Hx Congestive Heart Failure: No Hx Diabetes: No Hx Deep Vein Thrombosis: No Hx Liver Disease: No Hx Renal Disease: No Hx Arthritis: Yes Hx Seizures: No Hx Asthma: No Hx COPD: No Hx HIV: No Additional medical history: chronic pain, hypercholesterolemia, sepsis in 2018, infected hardware in LLL removed 11/2018. spinal stenosis - Surgical History Hx Pacemaker: No Hx Internal Defibrillator: No Additional Surgical History: L leg fx repair. hyst. pelvic fx repair. Pt became septic due to infection caused by metal in LLL: removed early 2018 - Social History Smoking Status: Never Smoker Substance Use Type: None - Medications Home Medications: Home Medications Medication Instructions Recorded Confirmed Last Taken Type Meloxicam [Mobic] 7.5 mg PO DAILY #30 tablet 11/02/18 01/28/19 Unknown Rx Pravastatin [Pravachol] 20 mg PO QHS #30 tablet 11/02/18 01/28/19 Unknown Rx Prednisone [predniSONE 5 mg (6-Day 5 mg PO .TAPER #1 tab.ds.pk 11/02/18 01/28/19 Unknown Rx Pack, 21 Tabs)] diphenhydrAMINE [Benadryl CAP] 25 mg PO Q6HR PRN #60 capsule 11/02/18 01/28/19 Unknown Rx tiZANidine [Zanaflex] 4 mg PO Q8H PRN #90 tablet 11/02/18 01/28/19 Unknown Rx Oxycodone HCl/Acetaminophen 1 each PO Q6HR PRN #60 tablet 11/03/18 01/28/19 Unknown Rx [Percocet 10/325 mg] Pantoprazole [Protonix TAB] 40 mg PO QDAY #30 tablet 11/18/18 01/28/19 Unknown Rx Linezolid [Zyvox] 600 mg PO BID #26 tablet 11/29/18 01/28/19 Unknown Rx HYDROcodone/APAP 5-325 [[place] 1 - 2 each PO Q6HR PRN #14 tablet 01/28/19 Unknown Rx 5/325] Promethazine [Phenergan] 25 mg PO Q6HR PRN #20 tab 01/28/19 Unknown Rx levoFLOXacin [Levaquin] 750 mg PO QDAY #10 tablet 01/28/19 Unknown Rx metroNIDAZOLE [Flagyl] 500 mg PO Q8HR #30 tablet 01/28/19 Unknown Rx ED Physical Exam - General Limitations: No Limitations General appearance: alert, in no apparent distress - Head Head exam: Present: atraumatic, normocephalic - Eye Eye exam: Present: normal appearance, PERRL, EOMI Pupils: Present: normal accommodation - ENT ENT exam: Present: mucous membranes moist - Neck Neck exam: Present: normal inspection - Respiratory Respiratory exam: Present: normal lung sounds bilaterally. Absent: respiratory distress - Cardiovascular Cardiovascular Exam: Present: regular rate, normal rhythm. Absent: systolic murmur, diastolic murmur, rubs, gallop - GI/Abdominal GI/Abdominal exam: Present: soft, normal bowel sounds. Absent: distended, tenderness, guarding, rebound, rigid, bruit, hernia - Rectal Rectal exam: Present: tenderness, other (Abscess left buttocks to pilonidal region erythema warm to touch purulent drainage ) ED Course Vital Signs 02/15/19 02/15/19 02/15/19 16:27 19:37 19:56 Temperature 98.8 F 100.2 F H Pulse Rate 138 H Respiratory 18 18 18 Rate Blood Pressure 134/76 O2 Sat by Pulse 100 100 Oximetry ED Medical Decision Making - Lab Data Result diagrams: 02/15/19 19:46 02/15/19 19:46 Labs 02/15/19 02/15/19 02/15/19 19:46 19:46 19:46 WBC 22.7 H RBC 4.18 Hgb 11.9 Hct 36.9 MCV 88 MCH 29 MCHC 32 RDW 15.2 Plt Count 521 H Add Manual Diff Complete Total Counted 100 Seg Neuts % (Manual) 91.0 H Band Neutrophils % 0 Lymphocytes % (Manual) 5.0 L Reactive Lymphs % (Man) 0 Monocytes % (Manual) 4.0 Eosinophils % (Manual) 0 Basophils % (Manual) 0 Metamyelocytes % 0 Myelocytes % 0 Promyelocytes % 0 Blast Cells % 0 Nucleated RBC % Not Reportable Seg Neutrophils # Man 20.7 H Band Neutrophils # 0.0 Lymphocytes # (Manual) 1.1 L Abs React Lymphs (Man) 0.0 Monocytes # (Manual) 0.9 H Eosinophils # (Manual) 0.0 Basophils # (Manual) 0.0 Metamyelocytes # 0.0 Myelocytes # 0.0 Promyelocytes # 0.0 Blast Cells # 0.0 WBC Morphology Not Reportable Hypersegmented Neuts Not Reportable Hyposegmented Neuts Not Reportable Hypogranular Neuts Not Reportable Smudge Cells Not Reportable Toxic Granulation Not Reportable Toxic Vacuolation Not Reportable Dohle Bodies Not Reportable Pelger-Huet Anomaly Not Reportable Leatha Rods Not Reportable Platelet Estimate Consistent w auto Clumped Platelets Not Reportable Plt Clumps, EDTA Not Reportable Large Platelets Not Reportable Giant Platelets Not Reportable Platelet Satelliting Not Reportable Plt Morphology Comment Not Reportable RBC Morphology Not Reportable Dimorphic RBCs Not Reportable Polychromasia Not Reportable Hypochromasia Not Reportable Poikilocytosis Not Reportable Anisocytosis 1+ Microcytosis Not Reportable Macrocytosis Not Reportable Spherocytes Not Reportable Pappenheimer Bodies Not Reportable Sickle Cells Not Reportable Target Cells Not Reportable Tear Drop Cells Not Reportable Ovalocytes Not Reportable Helmet Cells Not Reportable Huang-Combes Bodies Not Reportable [place] Rings Not Reportable Suni Cells Not Reportable Bite Cells Not Reportable Crenated Cell Not Reportable Elliptocytes Not Reportable Acanthocytes (Spur) Not Reportable Rouleaux Not Reportable Hemoglobin C Crystals Not Reportable Schistocytes Not Reportable Malaria parasites Not Reportable Adalberto Bodies Not Reportable Hem Pathologist Commnt No Sodium 137 Potassium 3.9 Chloride 95.9 L Carbon Dioxide 26 Anion Gap 19 BUN 5 L Creatinine 0.6 L Estimated GFR > 60 BUN/Creatinine Ratio 8 Glucose 99 Lactic Acid 1.30 Calcium 9.8 Total Bilirubin 0.40 AST 19 ALT 18 Alkaline Phosphatase 120 C-Reactive Protein 19.20 H Total Protein 8.8 H Albumin 4.3 Albumin/Globulin Ratio 1.0 Urine Color Urine Turbidity Urine pH Ur Specific [place] Urine Protein Urine Glucose (UA) Urine Ketones Urine Blood Urine Nitrite Urine Bilirubin Urine Urobilinogen Ur Leukocyte Esterase Urine WBC (Auto) Urine RBC (Auto) U Epithel Cells (Auto) Urine Bacteria (Auto) Urine Mucus 02/15/19 Unknown WBC RBC Hgb Hct MCV MCH MCHC RDW Plt Count Add Manual Diff Total Counted Seg Neuts % (Manual) Band Neutrophils % Lymphocytes % (Manual) Reactive Lymphs % (Man) Monocytes % (Manual) Eosinophils % (Manual) Basophils % (Manual) Metamyelocytes % Myelocytes % Promyelocytes % Blast Cells % Nucleated RBC % Seg Neutrophils # Man Band Neutrophils # Lymphocytes # (Manual) Abs React Lymphs (Man) Monocytes # (Manual) Eosinophils # (Manual) Basophils # (Manual) Metamyelocytes # Myelocytes # Promyelocytes # Blast Cells # WBC Morphology Hypersegmented Neuts Hyposegmented Neuts Hypogranular Neuts Smudge Cells Toxic Granulation Toxic Vacuolation Dohle Bodies Pelger-Huet Anomaly Leatha Rods Platelet Estimate Clumped Platelets Plt Clumps, EDTA Large Platelets Giant Platelets Platelet Satelliting Plt Morphology Comment RBC Morphology Dimorphic RBCs Polychromasia Hypochromasia Poikilocytosis Anisocytosis Microcytosis Macrocytosis Spherocytes Pappenheimer Bodies Sickle Cells Target Cells Tear Drop Cells Ovalocytes Helmet Cells Huang-Combes Bodies [place] Rings Suni Cells Bite Cells Crenated Cell Elliptocytes Acanthocytes (Spur) Rouleaux Hemoglobin C Crystals Schistocytes Malaria parasites Adalberto Bodies Hem Pathologist Commnt Sodium Potassium Chloride Carbon Dioxide Anion Gap BUN Creatinine Estimated GFR BUN/Creatinine Ratio Glucose Lactic Acid Calcium Total Bilirubin AST ALT Alkaline Phosphatase C-Reactive Protein Total Protein Albumin Albumin/Globulin Ratio Urine Color Yellow Urine Turbidity Slightly-cloudy Urine pH 8.0 H Ur Specific Zirconia 1.015 Urine Protein 30 mg/dl Urine Glucose (UA) Neg Urine Ketones Neg Urine Blood Neg Urine Nitrite Neg Urine Bilirubin Neg Urine Urobilinogen < 2.0 Ur Leukocyte Esterase Neg Urine WBC (Auto) 2.0 Urine RBC (Auto) 2.0 U Epithel Cells (Auto) 4.0 Urine Bacteria (Auto) 1+ Urine Mucus Few - Radiology Data Radiology results: report reviewed, image reviewed Findings [facility] [address] [place] [address] Cat Scan Report Signed Patient: NAHID SHEN MR#: [id number] : 1970 Acct:[id number] Age/Sex: 48 / F ADM Date: 02/15/19 Loc: ED Attending Dr: Ordering Physician: SAURAV MAGDALENO NP Date of Service: 02/15/19 Procedure(s): CT abdomen pelvis w con Accession Number(s): [id number] cc: SAURAV MAGDALENO NP PROCEDURE: CT ABDOMEN PELVIS W CON TECHNIQUE: Computerized axial tomography of the abdomen and pelvis was performed after the IV injection of iodinated nonionic contrast. CT DOSE LENGTH PRODUCT: 2361.4 mGycm HISTORY: abd pain abscess COMPARISONS: None . FINDINGS: Visualized lower thorax: No significant abnormality. Liver: Normal size and attenuation. Spleen: Normal size and attenuation. Gallbladder and biliary system: Normal. Pancreas: Normal. Adrenals: Kidneys enhance symmetrically with contrast. No obstructing stones visualized. No evidence hydronephrosis. Kidneys: Normal. GI tract: No evidence of bowel dilatation or obstruction. No CT evidence for wing endicitis or diverticulitis. Lymph nodes and mesentery: Normal. Vasculature: Normal.. Bladder: Normal. Reproductive organs: Normal. Peritoneum: No free fluid. Musculoskeletal structures: No significant abnormality. Other: Moderate to severe soft tissue swelling seen in the left medial gluteal cleft, correlate for cellulitis. No gross drainable fluid collections clearly visualized. IMPRESSION: Moderate to severe soft tissue swelling seen in the left medial gluteal cleft, correlate for cellulitis. No gross drainable fluid collections clearly visualized. This document is electronically signed by Marci Fang MD., Feb 15 2019 09:43:49 PM ET Transcribed By: QF Dictated By: MARCI FANG Electronically Authenticated By: MARCI FANG Signed Date/Time: 02/15/192144 DD/ 03 TD/TT: 02/15/192103 - Medical Decision Making CT: severe cellullitis buttocks, CBC: wbc: 22, fever improved , Consulted ed attending Dr. 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 Hughes recommdation admit to hospitalist dx. colorectal abscess, add abx levaquin, flagyl, and clindamycin, ivfs, NPO< General Surgery to evaluate in am for possible washout, admit to hospitalist for abx therapy , pt hand to hospitalist at this time. discussed treatment plan with patient ,patient advises agreement and understanding of with treatment plan. Critical care attestation.: If time is entered above; I have spent that time in minutes in the direct care of this critically ill patient, excluding procedure time. ED Disposition Clinical Impression: Rectal abscess, Cellulitis and abscess of buttock Disposition: OP ADMIT IP TO THIS HOSP Is pt being admited?: Yes Does the pt Need Aspirin: No Condition: Stable Referrals: PRIMARY CARE, [Primary Care Provider] - 3-5 Days
[2019-02-15 20:32] LABS: Alanine Aminotransferase 18 units/L (7-56); Albumin 4.3 g/dL (3.9-5); BUN/Creatinine Ratio 8; Blood Urea Nitrogen 5 mg/dL (7-17); Calcium 9.8 mg/dL (8.4-10.2); Hemolysis Index 12
[2019-02-15 20:42] LABS: Basophils % (Manual) 0 % (0.0-1.8); Eosinophils % (Manual) 0 % (0.0-4.3); Total Cells Counted 100
[2019-02-15 20:43] LABS: Anisocytosis 1+; Platelet Estimate Consistent w Auto
--- NOTE | 2019-02-15 21:45 | Cat Scan Report ---
PROCEDURE: CT ABDOMEN PELVIS W CON TECHNIQUE: Computerized axial tomography of the abdomen and pelvis was performed after the IV inject ion of iodinated nonionic contrast. CT DOSE LENGTH PRODUCT: 2361.4 mGycm HISTORY: abd pain abscess COMPARISONS: None . FINDINGS: Visualized lower thorax: No significant abnormality. Liver: Normal size and attenuation. Spleen: Normal size and attenuation. Gallbladder and biliary system: Normal. Pancreas: Normal. Adrenals: Kidneys enhance symmetrically with contrast. No obstructing stones visualized. No evidence hydronephrosis. Kidneys: Normal. GI tract: No evidence of bowel dilatation or obstruction. No CT evidence for appendicitis or divertic ulitis. Lymph nodes and mesentery: Normal. Vasculature: Normal.. Bladder: Normal. Reproductive organs: Normal. Peritoneum: No free fluid. Musculoskeletal structures: No significant abnormality. Other: Moderate to severe soft tissue swelling seen in the left medial gluteal cleft, correlate for c ellulitis. No gross drainable fluid collections clearly visualized. IMPRESSION: Moderate to severe soft tissue swelling seen in the left medial gluteal cleft, correlate for cellulitis. No gross drainable fluid collections clearly visualized. This document is electronically signed by Fili Landeros MD., Feb 15 2019 09:43:49 PM ET
[2019-02-15] MEDS ORDERED: FLAGYL 500 MG/100 ML 500 MG/100 ML BAG IV ONE (21:57)
[2019-02-15] MEDS ORDERED: LEVAQUIN 750MG/150ML 750 MG/150 ML BAG IV ONE (21:57)
[2019-02-15 22:04] LABS: Bacteria,Urine 1+ /HPF (Negative); Bilirubin,Urine NEG (Negative); Blood,Urine NEG (Negative); Color,Urine Yellow (Yellow); Mucus,Urine FEW /HPF; Urobilinogen,Urine < 2.0 mg/dL (<2.0)
[2019-02-15] MEDS: NACL 0.9% 1000 ML 1,000 ML IV SCH (22:34)
[2019-02-15] MEDS ORDERED: TYLENOL PO PRN (22:44)
[2019-02-15] MEDS ORDERED: SODIUM CHLORIDE FLUSH SYRINGE 10 ML IV PRN (22:44)
--- NOTE | 2019-02-15 22:53 | History and Physical Report ---
History of Present Illness Date of examination: 02/15/19 History of present illness: 48-year-old woman with a history of hypertension, hyperlipidemia, chronic pain comes emergency room with complaints of fever that has been intermittent over the last 1 month but has not become constant starting this week. Complain cough left buttock pain over one week, described as a pressure-like sensation, constant, no radiation, intensity 8/10. Also complaining of chills, no trauma to the area Review of systems Constitutional: no weight loss Ears, eyes, nose, mouth and throat: no nasal congestion, no nasal discharge, no sinus pressure, no vision change, no red eye. Neck: No neck pain or rigidity. Cardiovascular: no palpitations, chest pain Respiratory: no cough, shortness of breath Gastrointestinal: no hematochezia, abdominal pain Genitourinary : no frequency , no hematuria Musculoskeletal: no joint swelling or muscle ache Integumentary: no rash, no pruritis Neurological: no parathesias, no focal weakness Endocrine: no cold or heat intolerance, no polyuria or polydipsia Hematologic/Lymphatic: no easy bruising, no easy bleeding, no gland swelling Allergic/Immunologic: no urticaria, no angioedema. PAST MEDICAL HISTORY: hypertension, hyperlipidemia, chronic pain PAST SURGICAL HISTORY: Hysterectomy, left leg, left knee SOCIAL HISTORY: Denies alcohol, drugs, tobacco FAMILY HISTORY: Hypertension Medications and Allergies Allergies Allergy/AdvReac Type Severity Reaction Status Date / Time aspirin Allergy Swelling Verified 02/15/19 16:10 hydroxyzine HCl Allergy Anaphylaxis Verified 02/15/19 16:10 [From Vistaril] hydroxyzine pamoate Allergy Anaphylaxis Verified 02/15/19 16:10 [From Vistaril] ketorolac tromethamine Allergy Swelling Verified 02/15/19 16:10 [From Toradol] Penicillins Allergy Anaphylaxis Verified 02/15/19 16:10 tramadol Allergy Shortness Verified 02/15/19 16:10 of Breath vancomycin Allergy Rash Verified 02/15/19 16:10 Home Medications Medication Instructions Recorded Confirmed Last Taken Type Meloxicam [Mobic] 7.5 mg PO DAILY #30 tablet 11/02/18 01/28/19 Unknown Rx Pravastatin [Pravachol] 20 mg PO QHS #30 tablet 11/02/18 01/28/19 Unknown Rx Prednisone [predniSONE 5 mg (6-Day 5 mg PO .TAPER #1 tab.ds.pk 11/02/18 01/28/19 Unknown Rx Pack, 21 Tabs)] diphenhydrAMINE [Benadryl CAP] 25 mg PO Q6HR PRN #60 capsule 11/02/18 01/28/19 Unknown Rx tiZANidine [Zanaflex] 4 mg PO Q8H PRN #90 tablet 11/02/18 01/28/19 Unknown Rx Oxycodone HCl/Acetaminophen 1 each PO Q6HR PRN #60 tablet 11/03/18 01/28/19 Un known Rx [Percocet 10/325 mg] Pantoprazole [Protonix TAB] 40 mg PO QDAY #30 tablet 11/18/18 01/28/19 Unknown Rx Linezolid [Zyvox] 600 mg PO BID #26 tablet 11/29/18 01/28/19 Unknown Rx HYDROcodone/APAP 5-325 [[place] 1 - 2 each PO Q6HR PRN #14 tablet 01/28/19 Unknown Rx 5/325] Promethazine [Phenergan] 25 mg PO Q6HR PRN #20 tab 01/28/19 Unknown Rx levoFLOXacin [Levaquin] 750 mg PO QDAY #10 tablet 01/28/19 Unknown Rx metroNIDAZOLE [Flagyl] 500 mg PO Q8HR #30 tablet 01/28/19 Unknown Rx Active Meds: Active Medications Acetaminophen (Tylenol) 650 mg PO Q4H PRN PRN Reason: Pain MILD(1-3)/Fever >100.5/BURCIAGA Enoxaparin Sodium (Lovenox) 30 mg SUB-Q QDAY JASON Sodium Chloride (Nacl 0.9% 1000 Ml) 1,000 mls @ 150 mls/hr IV DIRECT JASON Last Admin: 02/15/19 22:34 Dose: 150 mls/hr Documented by: Levofloxacin/Dextrose (Levaquin 750mg/150ml) 750 mg in 150 mls @ 100 mls/hr IV ONCE ONE Stop: 02/15/19 23:26 Sodium Chloride (Nacl 0.9% 1000 Ml) 1,000 mls @ 100 mls/hr IV DIRECT JASON Morphine Sulfate (Morphine) 2 mg IV Q4H PRN PRN Reason: Pain, Moderate (4-6) Ondansetron HCl (Zofran) 4 mg IV Q4H PRN PRN Reason: Nausea And Vomiting Sodium Chloride (Sodium Chloride Flush Syringe 10 Ml) 10 ml IV BID JASON Sodium Chloride (Sodium Chloride Flush Syringe 10 Ml) 10 ml IV PRN PRN PRN Reason: LINE FLUSH Exam - Physical Exam Narrative exam: General Apperance: The patient lying in bed, breathing comfortable HEENT: Normocephalic, atraumatic. Pupils equally round and reactive to light, EOMI, no sclericterus or JVD or thyromegaly or nodule. , no carotid bruit, mucous membranes moist, no exudate or erythema Heart: S1-S2, regular is rhythm Lungs: Clear to auscultation bilaterally, breathing comfortable Abdomen: Positive bowel sounds, soft, nontender, nondistended, no organomegaly Extremities: No edema cyanosis clubbing Skin: left buttock: +erythema, indurated, tender, left greater than right, no nodule, warm and dry Neuro: cranial nerves 2-12 intact, speech is fluent, motor/sensory intact - Constitutional Vitals: Temp Pulse Resp BP Pulse Ox 100.2 F H 138 H 18 134/76 100 02/15/19 19:37 02/15/19 16:27 02/15/19 19:56 02/15/19 16:27 02/15/19 19:37 Results - Labs CBC & Chem 7: 02/15/19 19:46 02/15/19 19:46 Labs: Abnormal lab results 02/15/19 02/15/19 02/15/19 Range/Units 19:46 19:46 Unknown WBC 22.7 H (4.5-11.0) K/mm3 Plt Count 521 H (140-440) K/mm3 Seg Neuts % (Manual) 91.0 H (40.0-70.0) % Lymphocytes % (Manual) 5.0 L (13.4-35.0) % Seg Neutrophils # Man 20.7 H (1.8-7.7) K/mm3 Lymphocytes # (Manual) 1.1 L (1.2-5.4) K/mm3 Monocytes # (Manual) 0.9 H (0.0-0.8) K/mm3 Chloride 95.9 L (98-107) mmol/L BUN 5 L (7-17) mg/dL Creatinine 0.6 L (0.7-1.2) mg/dL C-Reactive Protein 19.20 H (0.00-1.30) mg/dL Total Protein 8.8 H (6.3-8.2) g/dL Urine pH 8.0 H (5.0-7.0) - Imaging and Cardiology CT scan - abdomen: report reviewed CT scan - pelvis: report reviewed Assessment and Plan Assessment Perirectal cellulitis hypertension hyperlipidemia chronic pain Plan Admit to medicine Start IV fluids, IV clindamycin, pt allergic to vanco IV morphine Surgery was consulted to see the patient DVT prophylaxis
[2019-02-15] MEDS ORDERED: NACL 0.9% 1000 ML 1,000 ML IV SCH (23:00)
[2019-02-16] MEDS ORDERED: MORPHINE ONE (00:38)
[2019-02-16] MEDS ORDERED: ZOFRAN ONE (00:38)
[2019-02-16] MEDS: MORPHINE IV PRN ×2 (00:44→08:35)
[2019-02-16] MEDS: ZOFRAN IV PRN ×3 (00:44→19:30)
[2019-02-16] MEDS ORDERED: CLEOCIN 900 MG/50 mL 900 MG/50 ML BAG IV SCH (02:00)
[2019-02-16] MEDS ORDERED: NACL 0.9% 250ML 250 ML IV ONE (04:57)
[2019-02-16 07:31] LABS: Basophils # (Auto) 0.1 K/mm3 (0.0-0.1); Basophils % (Auto) 0.4 % (0.0-1.8); Eosinophils # (Auto) 0.1 K/mm3 (0.0-0.4); Eosinophils % (Auto) 0.4 % (0.0-4.3); Hematocrit 29.8 % (30.3-42.9); Hemoglobin 9.9 gm/dl (10.1-14.3); Lymphocytes # (Auto) 1.4 K/mm3 (1.2-5.4); Lymphocytes % (Auto) 9.1 % (13.4-35.0); Mean Corpuscular HGB Conc 33 % (30-34); Mean Corpuscular Volume 89 fl (79-97); Monocytes # (Auto) 1.7 K/mm3 (0.0-0.8); Monocytes % (Auto) 11.1 % (0.0-7.3); Platelet Count 393 K/mm3 (140-440); Red Blood Count 3.37 M/mm3 (3.65-5.03); Red Cell Distribution Width 15.1 % (13.2-15.2)
[2019-02-16 07:52] LABS: BUN/Creatinine Ratio 7; Blood Urea Nitrogen 4 mg/dL (7-17); Hemolysis Index 5
--- NOTE | 2019-02-16 09:07 | Consultation ---
Medications and Allergies Allergies Allergy/AdvReac Type Severity Reaction Status Date / Time aspirin Allergy Swelling Verified 02/15/19 16:10 hydroxyzine HCl Allergy Anaphylaxis Verified 02/15/19 16:10 [From Vistaril] hydroxyzine pamoate Allergy Anaphylaxis Verified 02/15/19 16:10 [From Vistaril] ketorolac tromethamine Allergy Swelling Verified 02/15/19 16:10 [From Toradol] Penicillins Allergy Anaphylaxis Verified 02/15/19 16:10 tramadol Allergy Shortness Verified 02/15/19 16:10 of Breath vancomycin Allergy Rash Verified 02/15/19 16:10 Home Medications Medication Instructions Recorded Confirmed Last Taken Type Meloxicam [Mobic] 7.5 mg PO DAILY #30 tablet 11/02/18 01/28/19 Unknown Rx Pravastatin [Pravachol] 20 mg PO QHS #30 tablet 11/02/18 01/28/19 Unknown Rx Prednisone [predniSONE 5 mg (6-Day 5 mg PO .TAPER #1 tab.ds.pk 11/02/18 01/28/19 Unknown Rx Pack, 21 Tabs)] diphenhydrAMINE [Benadryl CAP] 25 mg PO Q6HR PRN #60 capsule 11/02/18 01/28/19 Unknown Rx tiZANidine [Zanaflex] 4 mg PO Q8H PRN #90 tablet 11/02/18 01/28/19 Unknown Rx Oxycodone HCl/Acetaminophen 1 each PO Q6HR PRN #60 tablet 11/03/18 01/28/19 Unknown Rx [Percocet 10/325 mg] Pantoprazole [Protonix TAB] 40 mg PO QDAY #30 tablet 11/18/18 01/28/19 Unknown R x Linezolid [Zyvox] 600 mg PO BID #26 tablet 11/29/18 01/28/19 Unknown Rx HYDROcodone/APAP 5-325 [[place] 1 - 2 each PO Q6HR PRN #14 tablet 01/28/19 Unknown Rx 5/325] Promethazine [Phenergan] 25 mg PO Q6HR PRN #20 tab 01/28/19 Unknown Rx levoFLOXacin [Levaquin] 750 mg PO QDAY #10 tablet 01/28/19 Unknown Rx metroNIDAZOLE [Flagyl] 500 mg PO Q8HR #30 tablet 01/28/19 Unknown Rx Active Meds: Active Medications Acetaminophen (Tylenol) 650 mg PO Q4H PRN PRN Reason: Pain MILD(1-3)/Fever >100.5/[place]CIAGA Enoxaparin Sodium (Lovenox) 40 mg SUB-Q QDAY JASON Sodium Chloride (Nacl 0.9% 1000 Ml) 1,000 mls @ 150 mls/hr IV DIRECT JASON Last Admin: 02/15/19 22:34 Dose: 150 mls/hr Documented by: Sodium Chloride (Nacl 0.9% 1000 Ml) 1,000 mls @ 100 mls/hr IV DIRECT JASON Clindamycin HCl (Cleocin 900 Mg/50 Ml) 900 mg in 50 mls @ 100 mls/hr IV Q8H JASON; Protocol Last Admin: 02/16/19 01:41 Dose: 100 mls/hr Documented by: Morphine Sulfate (Morphine) 2 mg IV Q4H PRN PRN Reason: Pain, Moderate (4-6) Last Admin: 02/16/19 08:35 Dose: 2 mg Documented by: Ondansetron HCl (Zofran) 4 mg IV Q4H PRN PRN Reason: Nausea And Vomiting Last Admin: 02/16/19 08:36 Dose: 4 mg Documented by: Sodium Chloride (Sodium Chloride Flush Syringe 10 Ml) 10 ml IV BID JASON Sodium Chloride (Sodium Chloride Flush Syringe 10 Ml) 10 ml IV PRN PRN PRN Reason: LINE FLUSH Exam Vital Signs Temp Pulse Resp BP Pulse Ox 98.8 F 138 H 18 134/76 100 02/15/19 16:27 02/15/19 16:27 02/15/19 16:27 02/15/19 16:27 02/15/19 16:27 Results - Labs 02/16/19 07:00 02/16/19 07:00 Abnormal lab results 02/15/19 02/15/19 02/15/19 Range/Units 19:46 19:46 Unknown WBC 22.7 H (4.5-11.0) K/mm3 RBC (3.65-5.03) M/mm3 Hgb (10.1-14.3) gm/dl Hct (30.3-42.9) % Plt Count 521 H (140-440) K/mm3 Lymph % (Auto) (13.4-35.0) % [place] % (Auto) (0.0-7.3) % [place] # (0.0-0.8) K/mm3 Seg Neutrophils % (40.0-70.0) % Seg Neuts % (Manual) 91.0 H (40.0-70.0) % Lymphocytes % (Manual) 5.0 L (13.4-35.0) % Seg Neutrophils # (1.8-7.7) K/mm3 Seg Neutrophils # Man 20.7 H (1.8-7.7) K/mm3 Lymphocytes # (Manual) 1.1 L (1.2-5.4) K/mm3 Monocytes # (Manual) 0.9 H (0.0-0.8) K/mm3 Chloride 95.9 L (98-107) mmol/L BUN 5 L (7-17) mg/dL Creatinine 0.6 L (0.7-1.2) mg/dL Glucose (65-100) mg/dL Calcium (8.4-10.2) mg/dL C-Reactive Protein 19.20 H (0.00-1.30) mg/dL Total Protein 8.8 H (6.3-8.2) g/dL Urine pH 8.0 H (5.0-7.0) 02/16/19 02/16/19 Range/Units 07:00 07:00 WBC 15.6 H (4.5-11.0) K/mm3 RBC 3.37 L (3.65-5.03) M/mm3 Hgb 9.9 L (10.1-14.3) gm/dl Hct 29.8 L D (30.3-42.9) % Plt Count (140-440) K/mm3 Lymph % (Auto) 9.1 L (13.4-35.0) % [place] % (Auto) 11.1 H (0.0-7.3) % [place] # 1.7 H (0.0-0.8) K/mm3 Seg Neutrophils % 79.0 H (40.0-70.0) % Seg Neuts % (Manual) (40.0-70.0) % Lymphocytes % (Manual) (13.4-35.0) % Seg Neutrophils # 12.3 H (1.8-7.7) K/mm3 Seg Neutrophils # Man (1.8-7.7) K/mm3 Lymphocytes # (Manual) (1.2-5.4) K/mm3 Monocytes # (Manual) (0.0-0.8) K/mm3 Chloride (98-107) mmol/L BUN 4 L (7-17) mg/dL Creatinine 0.6 L (0.7-1.2) mg/dL Glucose 130 H (65-100) mg/dL Calcium 8.0 L D (8.4-10.2) mg/dL C-Reactive Protein (0.00-1.30) mg/dL Total Protein (6.3-8.2) g/dL Urine pH (5.0-7.0) Diabetes panel 02/15/19 02/16/19 Range/Units 19:46 07:00 Sodium 137 138 (137-145) mmol/L Potassium 3.9 3.6 (3.6-5.0) mmol/L Chloride 95.9 L 101.0 (98-107) mmol/L Carbon Dioxide 26 22 (22-30) mmol/L BUN 5 L 4 L (7-17) mg/dL Creatinine 0.6 L 0.6 L (0.7-1.2) mg/dL Glucose 99 130 H (65-100) mg/dL Calcium 9.8 8.0 L D (8.4-10.2) mg/dL AST 19 (5-40) units/L ALT 18 (7-56) units/L Alkaline Phosphatase 120 (35-129) units/L Total Protein 8.8 H (6.3-8.2) g/dL Albumin 4.3 (3.9-5) g/dL Calcium panel 02/15/19 02/16/19 Range/Units 19:46 07:00 Calcium 9.8 8.0 L D (8.4-10.2) mg/dL Albumin 4.3 (3.9-5) g/dL Pituitary panel 02/15/19 02/16/19 Range/Units 19:46 07:00 Sodium 137 138 (137-145) mmol/L Potassium 3.9 3.6 (3.6-5.0) mmol/L Chloride 95.9 L 101.0 (98-107) mmol/L Carbon Dioxide 26 22 (22-30) mmol/L BUN 5 L 4 L (7-17) mg/dL Creatinine 0.6 L 0.6 L (0.7-1.2) mg/dL Glucose 99 130 H (65-100) mg/dL Calcium 9.8 8.0 L D (8.4-10.2) mg/dL Adrenal panel 02/15/19 02/16/19 Range/Units 19:46 07:00 Sodium 137 138 (137-145) mmol/L Potassium 3.9 3.6 (3.6-5.0) mmol/L Chloride 95.9 L 101.0 (98-107) mmol/L Carbon Dioxide 26 22 (22-30) mmol/L BUN 5 L 4 L (7-17) mg/dL Creatinine 0.6 L 0.6 L (0.7-1.2) mg/dL Glucose 99 130 H (65-100) mg/dL Calcium 9.8 8.0 L D (8.4-10.2) mg/dL Total Bilirubin 0.40 (0.1-1.2) mg/dL AST 19 (5-40) units/L ALT 18 (7-56) units/L Alkaline Phosphatase 120 (35-129) units/L Total Protein 8.8 H (6.3-8.2) g/dL Albumin 4.3 (3.9-5) g/dL Assessment and Plan 48 yo F with perirectal abscess, sepsis Plan: 1. NPO 2. IVF 3. IV abx 4. ID consulted 5. prn pain control 6. OR today for incision and drainage of perirectal abscess Thank you, please call with questions.
--- NOTE | 2019-02-16 09:48 | Progress Note ---
Assessment and Plan Assessment and plan: Perirectal abscess/cellulitis. I&D per surgery. Sepsis. Etiology secondary to above. Continue IV antibiotics and follow-up blood cultures. ID consultation pending. Hypertension. Resume antihypertensive medications. Hyperlipidemia. Continue statin. Chronic pain syndrome. DVT prophylaxis. History Interval history: No new issues overnight. Hospitalist Physical - Constitutional Vitals: Temp Pulse Resp BP Pulse Ox 99.9 F H 120 H 18 99/55 96 02/16/19 07:24 02/16/19 07:24 02/16/19 07:24 02/16/19 07:24 02/16/19 09:25 General appearance: Present: no acute distress, well-nourished - EENT Eyes: Present: PERRL, EOM intact ENT: hearing intact, clear oral mucosa, dentition normal - Neck Neck: Present: supple, normal ROM - Respiratory Respiratory effort: normal Respiratory: bilateral: CTA - Cardiovascular Rhythm: regular Heart Sounds: Present: S1 & S2. Absent: gallop, rub - Extremities Extremities: no ischemia, No edema, Full ROM - Abdominal General gastrointestinal: soft, non-tender, non-distended, normal bowel sounds - Integumentary Integumentary: Present: erythema ( left buttock: +erythema, indurated, tender, left greater than right, no nodule, warm and dry) - Neurologic Neurologic: CNII-XII intact, moves all extremities Results - Labs CBC & Chem 7: 02/16/19 07:00 02/16/19 07:00 Labs: Laboratory Last Values WBC 15.6 K/mm3 (4.5-11.0) H 02/16/19 07:00 RBC 3.37 M/mm3 (3.65-5.03) L 02/16/19 07:00 Hgb 9.9 gm/dl (10.1-14.3) L 02/16/19 07:00 Hct 29.8 % (30.3-42.9) L D 02/16/19 07:00 MCV 89 fl (79-97) 02/16/19 07:00 MCH 29 pg (28-32) 02/16/19 07:00 MCHC 33 % (30-34) 02/16/19 07:00 RDW 15.1 % (13.2-15.2) 02/16/19 07:00 Plt Count 393 K/mm3 (140-440) 02/16/19 07:00 Lymph % (Auto) 9.1 % (13.4-35.0) L 02/16/19 07:00 [place] % (Auto) 11.1 % (0.0-7.3) H 02/16/19 07:00 Eos % (Auto) 0.4 % (0.0-4.3) 02/16/19 07:00 Baso % (Auto) 0.4 % (0.0-1.8) 02/16/19 07:00 Lymph # 1.4 K/mm3 (1.2-5.4) 02/16/19 07:00 [place] # 1.7 K/mm3 (0.0-0.8) H 02/16/19 07:00 Eos # 0.1 K/mm3 (0.0-0.4) 02/16/19 07:00 Baso # 0.1 K/mm3 (0.0-0.1) 02/16/19 07:00 Add Manual Diff Complete 02/15/19 19:46 Total Counted 100 02/15/19 19:46 Seg Neutrophils % 79.0 % (40.0-70.0) H 02/16/19 07:00 Seg Neuts % (Manual) 91.0 % (40.0-70.0) H 02/15/19 19:46 0 % 02/15/19 19:46 5.0 % (13.4-35.0) L 02/15/19 19:46 Reactive Lymphs % (Man) 0 % 02/15/19 19:46 4.0 % (0.0-7.3) 02/15/19 19:46 0 % (0.0-4.3) 02/15/19 19:46 0 % (0.0-1.8) 02/15/19 19:46 0 % 02/15/19 19:46 0 % 02/15/19 19:46 0 % 02/15/19 19:46 0 % 02/15/19 19:46 Nucleated RBC % Not Reportable 02/15/19 19:46 Seg Neutrophils # 12.3 K/mm3 (1.8-7.7) H 02/16/19 07:00 Seg Neutrophils # Man 20.7 K/mm3 (1.8-7.7) H 02/15/19 19:46 Band Neutrophils # 0.0 K/mm3 02/15/19 19:46 1.1 K/mm3 (1.2-5.4) L 02/15/19 19:46 Abs React Lymphs (Man) 0.0 K/mm3 02/15/19 19:46 0.9 K/mm3 (0.0-0.8) H 02/15/19 19:46 0.0 K/mm3 (0.0-0.4) 02/15/19 19:46 0.0 K/mm3 (0.0-0.1) 02/15/19 19:46 0.0 K/mm3 02/15/19 19:46 0.0 K/mm3 02/15/19 19:46 0.0 K/mm3 02/15/19 19:46 Blast Cells # 0.0 K/mm3 02/15/19 19:46 WBC Morphology Not Reportable 02/15/19 19:46 Hypersegmented Neuts Not Reportable 02/15/19 19:46 Hyposegmented Neuts Not Reportable 02/15/19 19:46 Hypogranular Neuts Not Reportable 02/15/19 19:46 Not Reportable 02/15/19 19:46 Not Reportable 02/15/19 19:46 Not Reportable 02/15/19 19:46 Not Reportable 02/15/19 19:46 Not Reportable 02/15/19 19:46 Not Reportable 02/15/19 19:46 Consistent w auto 02/15/19 19:46 Not Reportable 02/15/19 19:46 Plt Clumps, EDTA Not Reportable 02/15/19 19:46 Not Reportable 02/15/19 19:46 Not Reportable 02/15/19 19:46 Not Reportable 02/15/19 19:46 Plt Morphology Comment Not Reportable 02/15/19 19:46 RBC Morphology Not Reportable 02/15/19 19:46 Dimorphic RBCs Not Reportable 02/15/19 19:46 Not Reportable 02/15/19 19:46 Not Reportable 02/15/19 19:46 Not Reportable 02/15/19 19:46 1+ 02/15/19 19:46 Not Reportable 02/15/19 19:46 Not Reportable 02/15/19 19:46 Not Reportable 02/15/19 19:46 Not Reportable 02/15/19 19:46 Not Reportable 02/15/19 19:46 Not Reportable 02/15/19 19:46 Not Reportable 02/15/19 19:46 Not Reportable 02/15/19 19:46 Not Reportable 02/15/19 19:46 Not Reportable 02/15/19 19:46 Not Reportable 02/15/19 19:46 Not Reportable 02/15/19 19:46 Not Reportable 02/15/19 19:46 Not Reportable 02/15/19 19:46 Not Reportable 02/15/19 19:46 Acanthocytes (Spur) Not Reportable 02/15/19 19:46 Rouleaux Not Reportable 02/15/19 19:46 Not Reportable 02/15/19 19:46 Not Reportable 02/15/19 19:46 Not Reportable 02/15/19 19:46 Not Reportable 02/15/19 19:46 Hem Pathologist Commnt No 02/15/19 19:46 Sodium 138 mmol/L (137-145) 02/16/19 07:00 Potassium 3.6 mmol/L (3.6-5.0) 02/16/19 07:00 Chloride 101.0 mmol/L (98-107) 02/16/19 07:00 Carbon Dioxide 22 mmol/L (22-30) 02/16/19 07:00 19 mmol/L 02/16/19 07:00 BUN 4 mg/dL (7-17) L 02/16/19 07:00 0.6 mg/dL (0.7-1.2) L 02/16/19 07:00 Estimated GFR > 60 ml/min 02/16/19 07:00 7 % 02/16/19 07:00 Glucose 130 mg/dL (65-100) H 02/16/19 07:00 Lactic Acid 1.30 mmol/L (0.7-2.0) 02/15/19 19:46 Calcium 8.0 mg/dL (8.4-10.2) L D 02/16/19 07:00 0.40 mg/dL (0.1-1.2) 02/15/19 19:46 AST 19 units/L (5-40) 02/15/19 19:46 ALT 18 units/L (7-56) 02/15/19 19:46 120 units/L (35-129) 02/15/19 19:46 19.20 mg/dL (0.00-1.30) H 02/15/19 19:46 8.8 g/dL (6.3-8.2) H 02/15/19 19:46 4.3 g/dL (3.9-5) 02/15/19 19:46 1.0 % 02/15/19 19:46 Yellow (Yellow) 02/15/19 Unknown Slightly-cloudy (Clear) 02/15/19 Unknown 8.0 (5.0-7.0) H 02/15/19 Unknown Ur Specific [place] 1.015 (1.003-1.030) 02/15/19 Unknown 30 mg/dl mg/dL (Negative) 02/15/19 Unknown Neg mg/dL (Negative) 02/15/19 Unknown Neg mg/dL (Negative) 02/15/19 Unknown Neg (Negative) 02/15/19 Unknown Neg (Negative) 02/15/19 Unknown Neg (Negative) 02/15/19 Unknown < 2.0 mg/dL (<2.0) 02/15/19 Unknown Ur Leukocyte Esterase Neg (Negative) 02/15/19 Unknown 2.0 /HPF (0.0-6.0) 02/15/19 Unknown 2.0 /HPF (0.0-6.0) 02/15/19 Unknown U Epithel Cells (Auto) 4.0 /HPF (0-13.0) 02/15/19 Unknown 1+ /HPF (Negative) 02/15/19 Unknown Few /HPF 02/15/19 Unknown Active Medications - Current Medications Current Medications: Generic Name Dose Route Start Last Admin Trade Name Freq PRN Reason Stop Dose Admin Acetaminophen 650 mg 02/15/19 22:44 Tylenol PO Q4H PRN Pain MILD(1-3)/Fever >100.5/[place]A Enoxaparin Sodium 40 mg 02/16/19 10:00 Lovenox SUB-Q QDAY JASON Sodium Chloride 1,000 mls @ 150 mls/hr 02/15/19 20:00 02/15/19 22:34 Nacl 0.9% 1000 Ml IV 150 mls/hr DIRECT JASON Administration Sodium Chloride 1,000 mls @ 100 mls/hr 02/15/19 23:00 Nacl 0.9% 1000 Ml IV DIRECT JASON Clindamycin HCl 900 mg in 50 mls @ 100 mls/hr 02/16/19 02:00 02/16/19 01:41 Cleocin 900 Mg/50 Ml IV 100 mls/hr Q8H JASON Administration Protocol Morphine Sulfate 2 mg 02/15/19 22:44 02/16/19 08:35 Morphine IV 2 mg Q4H PRN Administration Pain, Moderate (4-6) Ondansetron HCl 4 mg 02/15/19 22:44 02/16/19 08:36 Zofran IV 4 mg Q4H PRN Administration Nausea And Vomiting Sodium Chloride 10 ml 02/16/19 10:00 Sodium Chloride Flush Syringe 10 Ml IV BID JASON Sodium Chloride 10 ml 02/15/19 22:44 Sodium Chloride Flush Syringe 10 Ml IV PRN PRN LINE FLUSH
--- NOTE | 2019-02-16 10:48 | Anesthesia Consultation ---
Anesthesia Consult and Med Hx Date of service: 02/16/19 - Airway Anesthetic Teeth Evaluation: Good Mental/Hyoid Distance: Adequate Mallampati Class: Class I Intubation Access Assessment: Good - Pulmonary Exam CTA: Yes - Cardiac Exam Cardiac Exam: RRR - Pre-Operative Health Status ASA Pre-Surgery Classification: ASA2 Proposed Anesthetic Plan: General - Pulmonary Hx Smoking: No Hx Asthma: No Hx Respiratory Symptoms: No COPD: No Hx Pneumonia: No - Cardiovascular System Hx Hypertension: Yes Hx Heart Attack/AMI: No Hx Percutaneous Transluminal Coronary Angioplasty (PTCA): No Hx Pacemaker: No Hx Internal Defibrillator: No - Central Nervous System Hx Seizures: No CVA: No Hx Back Pain: Yes (spinal stenosis) - Endocrine Hx Renal Disease: No Hx End Stage Renal Disease: No Hx Liver Disease: No Hx Insulin Dependent Diabetes: No Hx Non-Insulin Dependent Diabetes: No Hx Thyroid Disease: No - Other Systems Hx Cancer: No Hx Obesity: Yes - Additional Comments Anesthesia Medical History Comments: Perirectal abscess/cellulitis. Sepsis - on IV abx, f/u blood cultures, ID consultation pending. Hypertension. Hyperlipidemia. Chronic pain syndrome.
[2019-02-16] MEDS: LOVENOX SUB-Q SCH (11:12)
--- NOTE | 2019-02-16 11:15 | Consultation ---
History of Present Illness - Reason for Consult Consult date: 02/16/19 Perirectal cellulitis Requesting physician: ROSA MARIA MCKEON - History of Present Illness HPI: 48-year-old woman with a history of hypertension, hyperlipidemia, chronic pain, obesity, known to ID service from an admission in November this year with sepsis due to Left knee septic arthritis and hardware infection with MSSA, who initially presented to ER on 01/28/19 c/o abdominal pain, diarrhea. She had CT A/P and was diagnosed with acute colitis. She was discharged on levofloxacin and flagyl for 10 days. She now presents to ER on 02/15/19 with complaints of fever that has been intermittent over the last 1 month, but has worsen since 5 days ago. She also recalls shaking chills, body aches, BURCIAGA with the fever, diarrhea, but no N/V, and Left buttock pain. Also c/o dysuria. She endorses that pain in Left buttock developed a week ago and is a pressure-like sensation, constant, no radiation, intensity 8/10. She stuck a needle on it yesterday, no fluid obtained. In the ER T 98.8 -> 100.2, pulse 138, RR 18, SO2 100%, BP 134/76. Labs showed WBC of 22.7, H/H 11.9/36.9, PLTs 521, Bun and creatinine 5/1.06. Lactic acid 1.3. CT A/P showed moderate to severe soft tissue swelling in the left medial gluteal cleft, correlate for cellulitis, no drainable fluid collection. Pt has been evaluated by general surgery and will go to OR today for I and D of perirectal abscess. She was given levofloxacin, flagyl and clindamycin in the ER. She is currently on clindamycin. ID is consulted to help with further antibiotic management. Review of systems Constitutional: no weight loss. +fever, +chills, +body aches. Ears, eyes, nose, mouth and throat: + nasal congestion, no nasal discharge, no sinus pressure, no vision change, no red eye. Neck: No neck pain or rigidity. Cardiovascular: no palpitations, chest pain Respiratory: no cough, shortness of breath Gastrointestinal: no hematochezia, + abdominal pain +diarrhea, +left buttock pain Genitourinary : +dysuria Musculoskeletal: no joint swelling or muscle ache Integumentary: no rash, no pruritis Neurological: no parathesias, no focal weakness. +BURCI[place]A, +dizziness. Endocrine: no cold or heat intolerance, no polyuria or polydipsia Hematologic/Lymphatic: no easy bruising, no easy bleeding, no gland swelling Allergic/Immunologic: no urticaria, no angioedema. PAST MEDICAL HISTORY: hypertension, hyperlipidemia, chronic pain PAST SURGICAL HISTORY: Hysterectomy, left leg surgery SOCIAL HISTORY: Denies alcohol, drugs, tobacco FAMILY HISTORY: Hypertension Microbiology: -Blood cultures 02/15/19: pending -Urine culture 02/15/19: pending Current Antimicrobials: Clindamycin 02/15- Previous Antimicrobials: Levaquin 02/15. Metronidazole 02/15. Past History Past Medical History: hyperthyroidism, hyperlipidemia, other (chronic pain) Past Surgical History: hysterectomy, Other (Left leg surgery) Medications and Allergies Allergies Allergy/AdvReac Type Severity Reaction Status Date / Time aspirin Allergy Swelling Verified 02/15/19 16:10 hydroxyzine HCl Allergy Anaphylaxis Verified 02/15/19 16:10 [From Vistaril] hydroxyzine pamoate Allergy Anaphylaxis Verified 02/15/19 16:10 [From Vistaril] ketorolac tromethamine Allergy Swelling Verified 02/15/19 16:10 [From Toradol] Penicillins Allergy Anaphylaxis Verified 02/15/19 16:10 tramadol Allergy Shortness Verified 02/15/19 16:10 of Breath vancomycin Allergy Rash Verified 02/15/19 16:10 Home Medications Medication Instructions Recorded Confirmed Last Taken Type Meloxicam [Mobic] 7.5 mg PO DAILY #30 tablet 11/02/18 01/28/19 Unknown Rx Pravastatin [Pravachol] 20 mg PO QHS #30 tablet 11/02/18 01/28/19 Unknown Rx Prednisone [predniSONE 5 mg (6-Day 5 mg PO .TAPER #1 tab.ds.pk 11/02/18 01/28/19 Unknown Rx Pack, 21 Tabs)] diphenhydrAMINE [Benadryl CAP] 25 mg PO Q6HR PRN #60 capsule 11/02/18 01/28/19 Unknown Rx tiZANidine [Zanaflex] 4 mg PO Q8H PRN #90 tablet 11/02/18 01/28/19 Unknown Rx Oxycodone HCl/Acetaminophen 1 each PO Q6HR PRN #60 tablet 11/03/18 01/28/19 Unknown Rx [Percocet 10/325 mg] Pantoprazole [Protonix TAB] 40 mg PO QDAY #30 tablet 11/18/18 01/28/19 Unknown Rx Linezolid [Zyvox] 600 mg PO BID #26 tablet 11/29/18 01/28/19 Unknown Rx HYDROcodone/APAP 5-325 [[place] 1 - 2 each PO Q6HR PRN #14 tablet 01/28/19 Unknown Rx 5/325] Promethazine [Phenergan] 25 mg PO Q6HR PRN #20 tab 01/28/19 Unknown Rx levoFLOXacin [Levaquin] 750 mg PO QDAY #10 tablet 01/28/19 Unknown Rx metroNIDAZOLE [Flagyl] 500 mg PO Q8HR #30 tablet 01/28/19 Unknown Rx Active Meds: Active Medications Acetaminophen (Tylenol) 650 mg PO Q4H PRN PRN Reason: Pain MILD(1-3)/Fever >100.5/BURCI[place]A Enoxaparin Sodium (Lovenox) 40 mg SUB-Q QDAY [facility] Last Admin: 02/16/19 11:12 Dose: Not Given Documented by: Sodium Chloride (Nacl 0.9% 1000 Ml) 1,000 mls @ 150 mls/hr IV DIRECT JASON Last Admin: 02/15/19 22:34 Dose: 150 mls/hr Documented by: Sodium Chloride (Nacl 0.9% 1000 Ml) 1,000 mls @ 100 mls/hr IV DIRECT JASON Clindamycin HCl (Cleocin 900 Mg/50 Ml) 900 mg in 50 mls @ 100 mls/hr IV Q8H [facility]; Protocol Last Admin: 02/16/19 01:41 Dose: 100 mls/hr Documented by: Morphine Sulfate (Morphine) 2 mg IV Q4H PRN PRN Reason: Pain, Moderate (4-6) Last Admin: 02/16/19 08:35 Dose: 2 mg Documented by: Ondansetron HCl (Zofran) 4 mg IV Q4H PRN PRN Reason: Nausea And Vomiting Last Admin: 02/16/19 08:36 Dose: 4 mg Documented by: Sodium Chloride (Sodium Chloride Flush Syringe 10 Ml) 10 ml IV BID [facility] Sodium Chloride (Sodium Chloride Flush Syringe 10 Ml) 10 ml IV PRN PRN PRN Reason: LINE FLUSH Physical Examination - Physical Exam Narrative exam: General appearance: Alert in NAD, conversant. Eyes: anicteric sclerae, moist conjunctivae; no lid-lag; PERRLA HENT: Atraumatic; oropharynx clear with moist mucous membranes and no mucosal ulcerations/no oral thrush; normal hard and soft palate. Normal external ears. Neck: Trachea midline; supple, no thyromegaly or lymphadenopathy Lungs: CTA, with normal respiratory effort and no intercostal retractions CV: RRR, no murmurs Abdomen: Soft, non-tender; no masses or hepatosplenomegaly. Medial Left gluteus erythematous, hot, tender to palpation. Extremities: No peripheral edema. LLE surgical scar. Skin: Normal temperature, turgor and texture; no rash, ulcers or subcutaneous nodules Psych: Appropriate affect, alert and oriented to person, place and time. Neuro: alert and oriented x 3. Moving all extremities. Non-focal deficits. Lines: No CVL / PICC - Constitutional Vitals: Vital Signs Temp Pulse Resp BP Pulse Ox 99.9 F H 120 H 18 99/55 96 02/16/19 07:24 02/16/19 07:24 02/16/19 07:24 02/16/19 07:24 02/16/19 09:25 Temperature -Last 24 Hours Temperature 99.9 F Temperature 99.8 F Temperature 99.8 F Temperature 99.8 F Temperature 100.2 F Temperature 100.2 F Temperature 98.8 F Results - Labs CBC & Chem 7: 02/16/19 07:00 02/16/19 07:00 Labs: Abnormal lab results 02/15/19 02/15/19 02/15/19 Range/Units 19:46 19:46 Unknown WBC 22.7 H (4.5-11.0) K/mm3 RBC (3.65-5.03) M/mm3 Hgb (10.1-14.3) gm/dl Hct (30.3-42.9) % Plt Count 521 H (140-440) K/mm3 Lymph % (Auto) (13.4-35.0) % [place] % (Auto) (0.0-7.3) % [place] # (0.0-0.8) K/mm3 Seg Neutrophils % (40.0-70.0) % Seg Neuts % (Manual) 91.0 H (40.0-70.0) % Lymphocytes % (Manual) 5.0 L (13.4-35.0) % Seg Neutrophils # (1.8-7.7) K/mm3 Seg Neutrophils # Man 20.7 H (1.8-7.7) K/mm3 Lymphocytes # (Manual) 1.1 L (1.2-5.4) K/mm3 Monocytes # (Manual) 0.9 H (0.0-0.8) K/mm3 Chloride 95.9 L (98-107) mmol/L BUN 5 L (7-17) mg/dL Creatinine 0.6 L (0.7-1.2) mg/dL Glucose (65-100) mg/dL Calcium (8.4-10.2) mg/dL C-Reactive Protein 19.20 H (0.00-1.30) mg/dL Total Protein 8.8 H (6.3-8.2) g/dL Urine pH 8.0 H (5.0-7.0) 02/16/19 02/16/19 Range/Units 07:00 07:00 WBC 15.6 H (4.5-11.0) K/mm3 RBC 3.37 L (3.65-5.03) M/mm3 Hgb 9.9 L (10.1-14.3) gm/dl Hct 29.8 L D (30.3-42.9) % Plt Count (140-440) K/mm3 Lymph % (Auto) 9.1 L (13.4-35.0) % [place] % (Auto) 11.1 H (0.0-7.3) % [place] # 1.7 H (0.0-0.8) K/mm3 Seg Neutrophils % 79.0 H (40.0-70.0) % Seg Neuts % (Manual) (40.0-70.0) % Lymphocytes % (Manual) (13.4-35.0) % Seg Neutrophils # 12.3 H (1.8-7.7) K/mm3 Seg Neutrophils # Man (1.8-7.7) K/mm3 Lymphocytes # (Manual) (1.2-5.4) K/mm3 Monocytes # (Manual) (0.0-0.8) K/mm3 Chloride (98-107) mmol/L BUN 4 L (7-17) mg/dL Creatinine 0.6 L (0.7-1.2) mg/dL Glucose 130 H (65-100) mg/dL Calcium 8.0 L D (8.4-10.2) mg/dL C-Reactive Protein (0.00-1.30) mg/dL Total Protein (6.3-8.2) g/dL Urine pH (5.0-7.0) - Imaging and Cardiology CT scan - abdomen: report reviewed Assessment and Plan Assessment: 48-year-old woman with a history of hypertension, hyperlipidemia, chronic pain, obesity, known to ID service from an admission in November this year with sepsis due to Left knee septic arthritis and hardware infection with MSSA, who presents to ER on 02/15/19 with complaints of fever, shaking chills, body aches, Left buttock pain. Found to have: 1) Sepsis present on admission, manifested by fever, tachycardia, leukocytosis. Due to Left perirectal abscess. 2) Left perirectal abscess. CT A/P showed moderate to severe soft tissue swelling in the left medial gluteal cleft, correlate for cellulitis, no drainable fluid collection. Recent CT A/P on 01/28/19 showed focal colitis of ascending colon. 3) H/o MSSA Left knee septic arthritis and hardware infection in november 2018. 4) Allergies, PCN and Vancomycin. Recommendations -Stop clindamycin. -Start azactam and flagyl. -OR today for I and D, please send abscess cx. -Further recommendations as case progresses. Thank you for your consultation, will follow up with you. Angelita Kolb MD Infectious Diseases Specialist [facility] ([facility] M [phone]
[2019-02-16] MEDS: FLAGYL 500 MG/100 ML 500 MG/100 ML BAG IV SCH ×2 (13:33→21:23)
[2019-02-16] MEDS: SODIUM CHLORIDE FLUSH SYRINGE 10 ML IV SCH ×2 (13:34→21:23)
--- NOTE | 2019-02-16 13:37 | Anesthesia Day of Surgery ---
Anesthesia Day of Surgery - Day of Surgery Patient Examined: Yes Patient H&P Reviewed: Yes Patient is NPO: Yes Beta Blockers: No Cardiac Clearance: No Pulmonary Clearance: No Guzman's Test: N/A
[2019-02-16] MEDS ORDERED: SUBLIMAZE ONE (13:41)
[2019-02-16] MEDS ORDERED: DIPRIVAN 10 MG/ML IV ONE ×2 (13:41→14:36)
[2019-02-16] MEDS ORDERED: PERCOCET 5/325 PO PRN (13:52)
--- NOTE | 2019-02-16 14:04 | Consultation ---
History of Present Illness Consult date: 02/16/19 Chief complaint: perirectal pain - History of present illness History of present illness: 48 yo F with hx of HLD presents to the ER with c/o increasing pain, swelling, and redness to the left buttock for the last several days. Patient was started on oral abx on a prior ER visit but states things just got worse. She also has started to have fevers and chills. No drainage from the area. She is having BMs. She has never had anything like this before. Past History Past Medical History: hyperthyroidism, hyperlipidemia, other (chronic pain) Past Surgical History: hysterectomy, Other (Left leg surgery) Social history: denies: smoking, alcohol abuse, prescription drug abuse Family history: no significant family history Medications and Allergies Allergies Allergy/AdvReac Type Severity Reaction Status Date / Time aspirin Allergy Swelling Verified 02/15/19 16:10 hydroxyzine HCl Allergy Anaphylaxis Verified 02/15/19 16:10 [From Vistaril] hydroxyzine pamoate Allergy Anaphylaxis Verified 02/15/19 16:10 [From Vistaril] ketorolac tromethamine Allergy Swelling Verified 02/15/19 16:10 [From Toradol] Penicillins Allergy Anaphylaxis Verified 02/15/19 16:10 tramadol Allergy Shortness Verified 02/15/19 16:10 of Breath vancomycin Allergy Rash Verified 02/15/19 16:10 Home Medications Medication Instructions Recorded Confirmed Last Taken Type Meloxicam [Mobic] 7.5 mg PO DAILY #30 tablet 11/02/18 01/28/19 Unknown Rx Pravastatin [Pravachol] 20 mg PO QHS #30 tablet 11/02/18 01/28/19 Unknown Rx Prednisone [predniSONE 5 mg (6-Day 5 mg PO .TAPER #1 tab.ds.pk 11/02/18 01/28/19 Unknown Rx Pack, 21 Tabs)] diphenhydrAMINE [Benadryl CAP] 25 mg PO Q6HR PRN #60 capsule 11/02/18 01/28/19 Unknown Rx tiZANidine [Zanaflex] 4 mg PO Q8H PRN #90 tablet 11/02/18 01/28/19 Unknown Rx Oxycodone HCl/Acetaminophen 1 each PO Q6HR PRN #60 tablet 11/03/18 01/28/19 Unknown Rx [Percocet 10/325 mg] Pantoprazole [Protonix TAB] 40 mg PO QDAY #30 tablet 11/18/18 01/28/19 Unknown Rx Linezolid [Zyvox] 600 mg PO BID #26 tablet 11/29/18 01/28/19 Unknown Rx HYDROcodone/APAP 5-325 [Berry 1 - 2 each PO Q6HR PRN #14 tablet 01/28/19 Unknown Rx 5/325] Promethazine [Phenergan] 25 mg PO Q6HR PRN #20 tab 01/28/19 Unknown Rx levoFLOXacin [Levaquin] 750 mg PO QDAY #10 tablet 01/28/19 Unknown Rx metroNIDAZOLE [Flagyl] 500 mg PO Q8HR #30 tablet 01/28/19 Unknown Rx Active Meds: Active Medications Acetaminophen (Tylenol) 650 mg PO Q4H PRN PRN Reason: Pain MILD(1-3)/Fever >100.5/[place] Enoxaparin Sodium (Lovenox) 40 mg SUB-Q QDAY [facility] Last Admin: 02/16/19 11:12 Dose: Not Given Documented by: Hydromorphone HCl (Dilaudid) 0.5 mg IV Q4H PRN PRN Reason: Pain , Severe (7-10) Sodium Chloride (Nacl 0.9% 1000 Ml) 1,000 mls @ 150 mls/hr IV DIRECT JASON Last Admin: 02/15/19 22:34 Dose: 150 mls/hr Documented by: Sodium Chloride (Nacl 0.9% 1000 Ml) 1,000 mls @ 100 mls/hr IV DIRECT JASON Aztreonam (Azactam/Ns 2 Gm/100 Ml) 2 gm in 100 mls @ 100 mls/hr IV Q8HR [facility]; Protocol Metronidazole (Flagyl 500 Mg/100 Ml) 500 mg in 100 mls @ 100 mls/hr IV Q8HR [facility]; Protocol Last Admin: 02/16/19 13:33 Dose: 100 mls/hr Documented by: Ondansetron HCl (Zofran) 4 mg IV Q4H PRN PRN Reason: Nausea And Vomiting Last Admin: 02/16/19 08:36 Dose: 4 mg Documented by: Oxycodone/Acetaminophen (Percocet 5/325) 2 tab PO Q6H PRN PRN Reason: Pain, Moderate (4-6) Sodium Chloride (Sodium Chloride Flush Syringe 10 Ml) 10 ml IV BID JASON Last Admin: 02/16/19 13:34 Dose: 10 ml Documented by: Sodium Chloride (Sodium Chloride Flush Syringe 10 Ml) 10 ml IV PRN PRN PRN Reason: LINE FLUSH Review of Systems All systems: negative (10 pt ROS performed and negative except for that listed in HPI) Exam Vital Signs Temp Pulse Resp BP Pulse Ox 98.8 F 138 H 18 134/76 100 02/15/19 16:27 02/15/19 16:27 02/15/19 16:27 02/15/19 16:27 02/15/19 16:27 Narrative exam: Gen: AAOx3. NAD CV: s1, s2+ resp; even and unlabored Ext: no c/c/e Gluteal: Left gluteal/perirectal cellulitis. Small opening at gluteal cleft on the left without drainage. + TTP. Results - Labs 02/16/19 07:00 02/16/19 07:00 Abnormal lab results 02/15/19 02/15/19 02/15/19 Range/Units 19:46 19:46 Unknown WBC 22.7 H (4.5-11.0) K/mm3 RBC (3.65-5.03) M/mm3 Hgb (10.1-14.3) gm/dl Hct (30.3-42.9) % Plt Count 521 H (140-440) K/mm3 Lymph % (Auto) (13.4-35.0) % [place] % (Auto) (0.0-7.3) % [place] # (0.0-0.8) K/mm3 Seg Neutrophils % (40.0-70.0) % Seg Neuts % (Manual) 91.0 H (40.0-70.0) % Lymphocytes % (Manual) 5.0 L (13.4-35.0) % Seg Neutrophils # (1.8-7.7) K/mm3 Seg Neutrophils # Man 20.7 H (1.8-7.7) K/mm3 Lymphocytes # (Manual) 1.1 L (1.2-5.4) K/mm3 Monocytes # (Manual) 0.9 H (0.0-0.8) K/mm3 Chloride 95.9 L (98-107) mmol/L BUN 5 L (7-17) mg/dL Creatinine 0.6 L (0.7-1.2) mg/dL Glucose (65-100) mg/dL Calcium (8.4-10.2) mg/dL C-Reactive Protein 19.20 H (0.00-1.30) mg/dL Total Protein 8.8 H (6.3-8.2) g/dL Urine pH 8.0 H (5.0-7.0) 02/16/19 02/16/19 Range/Units 07:00 07:00 WBC 15.6 H (4.5-11.0) K/mm3 RBC 3.37 L (3.65-5.03) M/mm3 Hgb 9.9 L (10.1-14.3) gm/dl Hct 29.8 L D (30.3-42.9) % Plt Count (140-440) K/mm3 Lymph % (Auto) 9.1 L (13.4-35.0) % [place] % (Auto) 11.1 H (0.0-7.3) % [place] # 1.7 H (0.0-0.8) K/mm3 Seg Neutrophils % 79.0 H (40.0-70.0) % Seg Neuts % (Manual) (40.0-70.0) % Lymphocytes % (Manual) (13.4-35.0) % Seg Neutrophils # 12.3 H (1.8-7.7) K/mm3 Seg Neutrophils # Man (1.8-7.7) K/mm3 Lymphocytes # (Manual) (1.2-5.4) K/mm3 Monocytes # (Manual) (0.0-0.8) K/mm3 Chloride (98-107) mmol/L BUN 4 L (7-17) mg/dL Creatinine 0.6 L (0.7-1.2) mg/dL Glucose 130 H (65-100) mg/dL Calcium 8.0 L D (8.4-10.2) mg/dL C-Reactive Protein (0.00-1.30) mg/dL Total Protein (6.3-8.2) g/dL Urine pH (5.0-7.0) Diabetes panel 02/15/19 02/16/19 Range/Units 19:46 07:00 Sodium 137 138 (137-145) mmol/L Potassium 3.9 3.6 (3.6-5.0) mmol/L Chloride 95.9 L 101.0 (98-107) mmol/L Carbon Dioxide 26 22 (22-30) mmol/L BUN 5 L 4 L (7-17) mg/dL Creatinine 0.6 L 0.6 L (0.7-1.2) mg/dL Glucose 99 130 H (65-100) mg/dL Calcium 9.8 8.0 L D (8.4-10.2) mg/dL AST 19 (5-40) units/L ALT 18 (7-56) units/L Alkaline Phosphatase 120 (35-129) units/L Total Protein 8.8 H (6.3-8.2) g/dL Albumin 4.3 (3.9-5) g/dL Calcium panel 02/15/19 02/16/19 Range/Units 19:46 07:00 Calcium 9.8 8.0 L D (8.4-10.2) mg/dL Albumin 4.3 (3.9-5) g/dL Pituitary panel 02/15/19 02/16/19 Range/Units 19:46 07:00 Sodium 137 138 (137-145) mmol/L Potassium 3.9 3.6 (3.6-5.0) mmol/L Chloride 95.9 L 101.0 (98-107) mmol/L Carbon Dioxide 26 22 (22-30) mmol/L BUN 5 L 4 L (7-17) mg/dL Creatinine 0.6 L 0.6 L (0.7-1.2) mg/dL Glucose 99 130 H (65-100) mg/dL Calcium 9.8 8.0 L D (8.4-10.2) mg/dL Adrenal panel 02/15/19 02/16/19 Range/Units 19:46 07:00 Sodium 137 138 (137-145) mmol/L Potassium 3.9 3.6 (3.6-5.0) mmol/L Chloride 95.9 L 101.0 (98-107) mmol/L Carbon Dioxide 26 22 (22-30) mmol/L BUN 5 L 4 L (7-17) mg/dL Creatinine 0.6 L 0.6 L (0.7-1.2) mg/dL Glucose 99 130 H (65-100) mg/dL Calcium 9.8 8.0 L D (8.4-10.2) mg/dL Total Bilirubin 0.40 (0.1-1.2) mg/dL AST 19 (5-40) units/L ALT 18 (7-56) units/L Alkaline Phosphatase 120 (35-129) units/L Total Protein 8.8 H (6.3-8.2) g/dL Albumin 4.3 (3.9-5) g/dL - Imaging CT scan - abdomen: report reviewed, image reviewed CT scan - pelvis: report reviewed, image reviewed Assessment and Plan 48 yo F with 1. sepsis 2. perirectal abscess Plan: 1. NPO 2. IVF 3. prn pain control 4. IV abx 5. ID consulted 6. plan for OR today for I&D of abscess - all risks, benefits, and alternatives to surgery discussed and consent obtained Thank you, please call with questions
[2019-02-16] MEDS ORDERED: NACL 0.9% IR ONE (14:15)
[2019-02-16] MEDS ORDERED: MARCAINE 0.5% INFILTRATI ONE ×2 (14:15→14:36)
[2019-02-16] MEDS ORDERED: VERSED ONE (14:22)
[2019-02-16] MEDS ORDERED: NEO SYNEPHRINE/NS Syringe(OR USE) IV ONE (14:39)
[2019-02-16] MEDS ORDERED: XYLOCAINE CARDIAC IV ONE (14:39)
[2019-02-16] MEDS: AZACTAM/NS 2 GM/100 ML 2 GM/100 ML VIAL IV SCH ×2 (14:45→23:23)
[2019-02-16] MEDS ORDERED: DILAUDID ONE ×2 (14:52→15:22)
--- NOTE | 2019-02-16 14:52 | Post Operative Note ---
Date of procedure: 02/16/19 Pre-op diagnosis: perirectal abscess Post-op diagnosis: same Findings: large amount of pus in abscess cavity, measured 10cm x 4 cm x 3cm Procedure: incision and drainage of perirectal abscess with excisional debridement of abscess cavity Anesthesia: MAC, local Surgeon: VIANNEY STOKES Estimated blood loss: minimal Pathology: list (cultures) Specimen disposition: to lab Condition: stable Disposition: PACU
[2019-02-16] MEDS ORDERED: NARCAN 0.4 MG/1 ML IV PRN (14:55)
[2019-02-16] MEDS ORDERED: ZOFRAN IV PRN (14:55)
[2019-02-16] MEDS ORDERED: TORADOL IV PRN (14:55)
[2019-02-16] MEDS ORDERED: REGLAN IV PRN (14:55)
[2019-02-16] MEDS: DILAUDID IV PRN ×3 (15:20→21:48)
[2019-02-16] MEDS: DILAUDID PO PRN (21:19)
[2019-02-17] MEDS: NACL 0.9% 1000 ML 1,000 ML IV SCH (04:52)
[2019-02-17] MEDS: FLAGYL 500 MG/100 ML 500 MG/100 ML BAG IV SCH ×3 (05:07→22:27)
[2019-02-17] MEDS: AZACTAM/NS 2 GM/100 ML 2 GM/100 ML VIAL IV SCH ×3 (05:08→22:24)
[2019-02-17] MEDS: DILAUDID IV PRN ×4 (05:45→22:22)
[2019-02-17 06:50] LABS: BUN/Creatinine Ratio 8; Blood Urea Nitrogen 4 mg/dL (7-17); Calcium 8.6 mg/dL (8.4-10.2); Hemolysis Index 2
[2019-02-17 07:00] LABS: Basophils # (Auto) 0.1 K/mm3 (0.0-0.1); Basophils % (Auto) 0.8 % (0.0-1.8); Eosinophils # (Auto) 0.2 K/mm3 (0.0-0.4); Eosinophils % (Auto) 1.5 % (0.0-4.3); Hematocrit 31.3 % (30.3-42.9); Hemoglobin 10.7 gm/dl (10.1-14.3); Lymphocytes # (Auto) 1.6 K/mm3 (1.2-5.4); Lymphocytes % (Auto) 15.6 % (13.4-35.0); Mean Corpuscular HGB Conc 34 % (30-34); Mean Corpuscular Volume 86 fl (79-97); Monocytes # (Auto) 1.3 K/mm3 (0.0-0.8); Monocytes % (Auto) 12.8 % (0.0-7.3); Platelet Count 403 K/mm3 (140-440); Red Blood Count 3.65 M/mm3 (3.65-5.03)
--- NOTE | 2019-02-17 09:44 | Progress Note ---
Assessment and Plan Assessment and plan: Perirectal abscess/cellulitis. CT A/P showed moderate to severe soft tissue swelling in the left medial gluteal cleft, correlate for cellulitis, no drainable fluid collection. Recent CT A/P on 01/28/19 showed focal colitis of ascending colon. Surgery with s/p incision and drainage of perirectal abscess with excisional debridement of abscess cavity (large amount of pus in abscess cavity, measured 10cm x 4 cm x 3cm). Wound care Sepsis. Etiology secondary to above. Continue IV antibiotics and follow-up blood cultures. ID following Hypertension. Resume antihypertensive medications. Hyperlipidemia. Continue statin. Chronic pain syndrome. H/o MSSA Left knee septic arthritis and hardware infection in november 2018. Allergies, PCN and Vancomycin. DVT prophylaxis. History Interval history: No new issues overnight. Hospitalist Physical - Constitutional Vitals: Temp Pulse Resp BP Pulse Ox 98.0 F 99 H 18 108/59 93 02/17/19 07:00 02/17/19 07:00 02/17/19 07:00 02/17/19 07:00 02/17/19 07:00 General appearance: Present: no acute distress, well-nourished - EENT Eyes: Present: PERRL, EOM intact ENT: hearing intact, clear oral mucosa, dentition normal - Neck Neck: Present: supple, normal ROM - Respiratory Respiratory effort: normal Respiratory: bilateral: CTA - Cardiovascular Rhythm: regular Heart Sounds: Present: S1 & S2. Absent: gallop, rub - Extremities Extremities: no ischemia, No edema, Full ROM - Abdominal General gastrointestinal: soft, non-tender, non-distended, normal bowel sounds - Integumentary Integumentary: Present: clear, warm, dry - Neurologic Neurologic: CNII-XII intact, moves all extremities Results - Labs CBC & Chem 7: 02/17/19 05:57 02/17/19 05:57 Labs: Laboratory Last Values WBC 10.3 K/mm3 (4.5-11.0) 02/17/19 05:57 RBC 3.65 M/mm3 (3.65-5.03) 02/17/19 05:57 Hgb 10.7 gm/dl (10.1-14.3) 02/17/19 05:57 Hct 31.3 % (30.3-42.9) 02/17/19 05:57 MCV 86 fl (79-97) 02/17/19 05:57 MCH 29 pg (28-32) 02/17/19 05:57 MCHC 34 % (30-34) 02/17/19 05:57 RDW 15.0 % (13.2-15.2) 02/17/19 05:57 Plt Count 403 K/mm3 (140-440) 02/17/19 05:57 Lymph % (Auto) 15.6 % (13.4-35.0) 02/17/19 05:57 [place] % (Auto) 12.8 % (0.0-7.3) H 02/17/19 05:57 Eos % (Auto) 1.5 % (0.0-4.3) 02/17/19 05:57 Baso % (Auto) 0.8 % (0.0-1.8) 02/17/19 05:57 Lymph # 1.6 K/mm3 (1.2-5.4) 02/17/19 05:57 [place] # 1.3 K/mm3 (0.0-0.8) H 02/17/19 05:57 Eos # 0.2 K/mm3 (0.0-0.4) 02/17/19 05:57 Baso # 0.1 K/mm3 (0.0-0.1) 02/17/19 05:57 Add Manual Diff Complete 02/15/19 19:46 Total Counted 100 02/15/19 19:46 Seg Neutrophils % 69.3 % (40.0-70.0) 02/17/19 05:57 Seg Neuts % (Manual) 91.0 % (40.0-70.0) H 02/15/19 19:46 0 % 02/15/19 19:46 5.0 % (13.4-35.0) L 02/15/19 19:46 Reactive Lymphs % (Man) 0 % 02/15/19 19:46 4.0 % (0.0-7.3) 02/15/19 19:46 0 % (0.0-4.3) 02/15/19 19:46 0 % (0.0-1.8) 02/15/19 19:46 0 % 02/15/19 19:46 0 % 02/15/19 19:46 0 % 02/15/19 19:46 0 % 02/15/19 19:46 Nucleated RBC % Not Reportable 02/15/19 19:46 Seg Neutrophils # 7.2 K/mm3 (1.8-7.7) 02/17/19 05:57 Seg Neutrophils # Man 20.7 K/mm3 (1.8-7.7) H 02/15/19 19:46 Band Neutrophils # 0.0 K/mm3 02/15/19 19:46 1.1 K/mm3 (1.2-5.4) L 02/15/19 19:46 Abs React Lymphs (Man) 0.0 K/mm3 02/15/19 19:46 0.9 K/mm3 (0.0-0.8) H 02/15/19 19:46 0.0 K/mm3 (0.0-0.4) 02/15/19 19:46 0.0 K/mm3 (0.0-0.1) 02/15/19 19:46 0.0 K/mm3 02/15/19 19:46 0.0 K/mm3 02/15/19 19:46 0.0 K/mm3 02/15/19 19:46 Blast Cells # 0.0 K/mm3 02/15/19 19:46 WBC Morphology Not Reportable 02/15/19 19:46 Hypersegmented Neuts Not Reportable 02/15/19 19:46 Hyposegmented Neuts Not Reportable 02/15/19 19:46 Hypogranular Neuts Not Reportable 02/15/19 19:46 Not Reportable 02/15/19 19:46 Not Reportable 02/15/19 19:46 Not Reportable 02/15/19 19:46 Not Reportable 02/15/19 19:46 Not Reportable 02/15/19 19:46 Not Reportable 02/15/19 19:46 Consistent w auto 02/15/19 19:46 Not Reportable 02/15/19 19:46 Plt Clumps, EDTA Not Reportable 02/15/19 19:46 Not Reportable 02/15/19 19:46 Not Reportable 02/15/19 19:46 Not Reportable 02/15/19 19:46 Plt Morphology Comment Not Reportable 02/15/19 19:46 RBC Morphology Not Reportable 02/15/19 19:46 Dimorphic RBCs Not Reportable 02/15/19 19:46 Not Reportable 02/15/19 19:46 Not Reportable 02/15/19 19:46 Not Reportable 02/15/19 19:46 1+ 02/15/19 19:46 Not Reportable 02/15/19 19:46 Not Reportable 02/15/19 19:46 Not Reportable 02/15/19 19:46 Not Reportable 02/15/19 19:46 Not Reportable 02/15/19 19:46 Not Reportable 02/15/19 19:46 Not Reportable 02/15/19 19:46 Not Reportable 02/15/19 19:46 Not Reportable 02/15/19 19:46 Not Reportable 02/15/19 19:46 Not Reportable 02/15/19 19:46 Not Reportable 02/15/19 19:46 Not Reportable 02/15/19 19:46 Not Reportable 02/15/19 19:46 Not Reportable 02/15/19 19:46 Acanthocytes (Spur) Not Reportable 02/15/19 19:46 Rouleaux Not Reportable 02/15/19 19:46 Not Reportable 02/15/19 19:46 Not Reportable 02/15/19 19:46 Not Reportable 02/15/19 19:46 Not Reportable 02/15/19 19:46 Hem Pathologist Commnt No 02/15/19 19:46 Sodium 138 mmol/L (137-145) 02/17/19 05:57 Potassium 4.3 mmol/L (3.6-5.0) 02/17/19 05:57 Chloride 100.8 mmol/L (98-107) 02/17/19 05:57 Carbon Dioxide 25 mmol/L (22-30) 02/17/19 05:57 17 mmol/L 02/17/19 05:57 BUN 4 mg/dL (7-17) L 02/17/19 05:57 0.5 mg/dL (0.7-1.2) L 02/17/19 05:57 Estimated GFR > 60 ml/min 02/17/19 05:57 8 % 02/17/19 05:57 Glucose 124 mg/dL (65-100) H 02/17/19 05:57 Lactic Acid 1.30 mmol/L (0.7-2.0) 02/15/19 19:46 Calcium 8.6 mg/dL (8.4-10.2) 02/17/19 05:57 0.40 mg/dL (0.1-1.2) 02/15/19 19:46 AST 19 units/L (5-40) 02/15/19 19:46 ALT 18 units/L (7-56) 02/15/19 19:46 120 units/L (35-129) 02/15/19 19:46 19.20 mg/dL (0.00-1.30) H 02/15/19 19:46 8.8 g/dL (6.3-8.2) H 02/15/19 19:46 4.3 g/dL (3.9-5) 02/15/19 19:46 1.0 % 02/15/19 19:46 Yellow (Yellow) 02/15/19 Unknown Slightly-cloudy (Clear) 02/15/19 Unknown 8.0 (5.0-7.0) H 02/15/19 Unknown Ur Specific [place] 1.015 (1.003-1.030) 02/15/19 Unknown 30 mg/dl mg/dL (Negative) 02/15/19 Unknown Neg mg/dL (Negative) 02/15/19 Unknown Neg mg/dL (Negative) 02/15/19 Unknown Neg (Negative) 02/15/19 Unknown Neg (Negative) 02/15/19 Unknown Neg (Negative) 02/15/19 Unknown < 2.0 mg/dL (<2.0) 02/15/19 Unknown Ur Leukocyte Esterase Neg (Negative) 02/15/19 Unknown 2.0 /HPF (0.0-6.0) 02/15/19 Unknown 2.0 /HPF (0.0-6.0) 02/15/19 Unknown U Epithel Cells (Auto) 4.0 /HPF (0-13.0) 02/15/19 Unknown 1+ /HPF (Negative) 02/15/19 Unknown Few /HPF 02/15/19 Unknown Active Medications - Current Medications Current Medications: Generic Name Dose Route Start Last Admin Trade Name Freq PRN Reason Stop Dose Admin Acetaminophen 650 mg 02/15/19 22:44 Tylenol PO Q4H PRN Pain MILD(1-3)/Fever >100.5/BURCIAGA Enoxaparin Sodium 40 mg 02/16/19 10:00 02/16/19 11:12 Lovenox SUB-Q Not Given QDAY JASON Hydromorphone HCl 0.5 mg 02/16/19 13:52 02/17/19 05:45 Dilaudid IV 0.5 mg Q4H PRN Administration Pain , Severe (7-10) Hydromorphone HCl 1 mg 02/16/19 14:52 Dilaudid PO Q6H PRN Pain , Severe (7-10) Hydromorphone HCl 0.5 mg 02/16/19 14:55 02/16/19 15:29 Dilaudid IV 02/17/19 14:54 0.5 mg Q10MIN PRN Administration Pain , Severe (7-10) Sodium Chloride 1,000 mls @ 150 mls/hr 02/15/19 20:00 02/17/19 04:52 Nacl 0.9% 1000 Ml IV 150 mls/hr DIRECT JASON Administration Sodium Chloride 1,000 mls @ 100 mls/hr 02/15/19 23:00 Nacl 0.9% 1000 Ml IV DIRECT JASON Aztreonam 2 gm in 100 mls @ 100 mls/hr 02/16/19 14:00 02/17/19 05:08 Azactam/Ns 2 Gm/100 Ml IV 100 mls/hr Q8HR JASON Administration Protocol Metronidazole 500 mg in 100 mls @ 100 mls/hr 02/16/19 14:00 02/17/19 05:07 Flagyl 500 Mg/100 Ml IV 100 mls/hr Q8HR JASON Administration Protocol Metoclopramide HCl 10 mg 02/16/19 14:55 Reglan IV ONCE PRN Nausea And Vomiting Naloxone HCl 0.1 mg 02/16/19 14:55 Narcan 0.4 Mg/1 Ml IV Q2MIN PRN Res Rate </= 8 or 02 SAT < 92% Ondansetron HCl 4 mg 02/15/19 22:44 02/16/19 19:30 Zofran IV 4 mg Q4H PRN Administration Nausea And Vomiting Ondansetron HCl 4 mg 02/16/19 14:55 Zofran IV ONCE PRN Nausea And Vomiting Sodium Chloride 10 ml 02/16/19 10:00 02/16/19 21:23 Sodium Chloride Flush Syringe 10 Ml IV 10 ml BID JASON Administration Sodium Chloride 10 ml 02/15/19 22:44 Sodium Chloride Flush Syringe 10 Ml IV PRN PRN LINE FLUSH Nutrition/Malnutrition Assess - Dietary Evaluation Nutrition/Malnutrition Findings: Nutrition Notes Start: 02/16/19 13:32 Freq: Status: Active Protocol: Document 02/16/19 13:32 RM (Rec: 02/16/19 13:42 RM [id number]) Nutrition Notes Need for Assessment generated from: [facility] Initial or Follow up Assessment Current Diagnosis Sepsis,Hypertension, Hyperlipidemia Other Pertinent Diagnosis Perirectal abscess/cellulitis Current Diet NPO Labs/Tests Reviewed Pertinent Medications Reviewed Height 5 ft 2 in Weight 70.8 kg Usual Body Weight 78.18 kg [place] Body Weight (kg) 50.00 BMI 28.5 Weight change and time frame 9.4% wt loss X 3 months Subjective/Other Information Screened for malnutrition risk and skin risk. [place]rahan 20 points. Pt NPO for I &D. 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 Declined regular ONS d/t it tasting like medicine. Admitted to a lot of diarrhea. Stated UBW was 172 lbs 3 months ago. No temporal or orbital wasting . 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 No Is Patient Ambulatory and/or Out of Bed No REE-([place]-St. Jeor-confined to bed) [phone] Calculation Used for Recommendations [place] Jeor Additional Notes Protein Needs: 106-142g (1.5- 2g/kg) Fluid Needs: 1 ml/kcal Nutrition Intervention Change Diet Order: Advance diet when medically able Add Supplement/Snack (indicate name/kcal Ensure Clear Apple 1 daily /protein ) once diet advanced Provides kCal: 240 Provides Protein (gm) 8 Goal #1 Diet advancement Anticipated Discharge Needs: Unable to determine at this time Follow-Up By: 02/18/19 Additional Comments Follow for PO and ONS intakes
[2019-02-17] MEDS: LOVENOX SUB-Q SCH (09:50)
[2019-02-17] MEDS: SODIUM CHLORIDE FLUSH SYRINGE 10 ML IV SCH (09:50)
--- NOTE | 2019-02-17 10:23 | Progress Note ---
Assessment and Plan Cultures: 02/16/19 Surgical cultures : Staph aureus 02/15/19 Urine: 10-100k of usual skin digna 02/15/19 Blood: no growth to date 48-year-old woman with a history of hypertension, hyperlipidemia, chronic pain, obesity, known to ID service from an admission in November this year with sepsis due to Left knee septic arthritis and hardware infection with MSSA, who presents to ER on 02/15/19 with complaints of fever, shaking chills, body aches, Left buttock pain. Found to have: 1) Sepsis: Resolved. Due to Left perirectal abscess. Last fever 02/15/19. CRP 19.20 2) Left perirectal abscess. CT A/P showed moderate to severe soft tissue swelling in the left medial gluteal cleft, correlate for cellulitis, no drainable fluid collection. Recent CT A/P on 01/28/19 showed focal colitis of ascending colon. Buttock surgical culture grew Staph aureus, follow up for ID and ROYAL's. s/p I & D of perirectal abscess with excisional debridement of abscess cavity on 02/16/19. 3) H/o MSSA Left knee septic arthritis and hardware infection in November 2018. 4) Allergies, PCN and Vancomycin. Recommendations -continue azactam and flagyl for now -Add Linezolid 600mg PO every 12 hours -F/u blood cultures -f/u Surgical cultures -F/u buttock cultures for ID and ROYAL's [facility] [employer] M: [phone] O:[phone] Subjective Date of service: 02/17/19 Interval history: Patient seen and examined. Reports continued left remberto-rectal discomfort when moving. No fevers. Objective - Exam Narrative Exam: General appearance: Alert in NAD, conversant. Eyes: anicteric sclerae, moist conjunctivae; no lid-lag; PERRLA HENT: Atraumatic; oropharynx clear with moist mucous membranes and no mucosal ulcerations/no oral thrush; normal hard and soft palate. Normal external ears. Neck: Trachea midline; supple, no thyromegaly or lymphadenopathy Lungs: CTA, with normal respiratory effort and no intercostal retractions CV: RRR, no murmurs Abdomen: Soft, non-tender; no masses or hepatosplenomegaly. Medial Left gluteus erythematous. packed with gauze, + dressing. Extremities: No peripheral edema. LLE surgical scar. Skin: Normal temperature, turgor and texture; no rash, ulcers or subcutaneous nodules Psych: Appropriate affect, alert and oriented to person, place and time. Neuro: alert and oriented x 3. Moving all extremities. Non-focal deficits. Lines: No CVL / PICC - Constitutional Vitals: Vital Signs Temp Pulse Resp BP Pulse Ox 98.0 F 99 H 18 108/59 93 02/17/19 07:00 02/17/19 07:00 02/17/19 07:00 02/17/19 07:00 02/17/19 07:00 Temperature -Last 24 Hours Temperature 98.0 F Temperature 98.6 F Temperature 98.5 F Temperature 98.4 F Temperature 98.4 F Temperature 99.2 F Temperature 98.5 F - Labs CBC & Chem 7: 02/17/19 05:57 02/17/19 05:57 Labs: Abnormal lab results 02/17/19 02/17/19 Range/Units 05:57 05:57 [place] % (Auto) 12.8 H (0.0-7.3) % [place] # 1.3 H (0.0-0.8) K/mm3 BUN 4 L (7-17) mg/dL Creatinine 0.5 L (0.7-1.2) mg/dL Glucose 124 H (65-100) mg/dL
--- NOTE | 2019-02-17 11:22 | Progress Note ---
Assessment and Plan 48 yo F s/p incision and drainage of perirectal abscess with excisional debridement of abscess cavity, POD 2 Plan; 1. wound care consulted - wound seen with dna sequencing associate. alginate packing 2. prn pain control 3. daily wound care 4. IV abx - ID on board 5. f/u OR cultures - prelim is staph aureus. 6. case management on board Thank you, please call with questions. Subjective Date of service: 02/17/19 Narrative: Pt seen and examined. c/o pain near incision and drainage site and lower back due to degenerative disc disease. No f/c. Objective Vital Signs - 12hr 02/16/19 02/16/19 02/17/19 23:45 23:50 04:53 Temperature 98.5 F 98.6 F Pulse Rate 103 H 105 H Respiratory 18 19 19 Rate Blood Pressure 92/50 102/68 Blood Pressure [Left] O2 Sat by Pulse 97 95 97 Oximetry 02/17/19 02/17/19 05:45 07:00 Temperature 98.0 F Pulse Rate 99 H Respiratory 20 18 Rate Blood Pressure Blood Pressure 108/59 [Left] O2 Sat by Pulse 93 Oximetry - General physical appearance Narrative Exam: Gen: AAOx3. NAD CV: s1, S2+ resp; even and unlabored Ext; no c/c/e Gluteal: Wound c/d/i. +cellulitis along inner aspect of left buttock. No drainage. - Labs 02/17/19 05:57 02/17/19 05:57 Diabetes panel 02/17/19 Range/Units 05:57 Sodium 138 (137-145) mmol/L Potassium 4.3 (3.6-5.0) mmol/L Chloride 100.8 (98-107) mmol/L Carbon Dioxide 25 (22-30) mmol/L BUN 4 L (7-17) mg/dL Creatinine 0.5 L (0.7-1.2) mg/dL Glucose 124 H (65-100) mg/dL Calcium 8.6 (8.4-10.2) mg/dL Calcium panel 02/17/19 Range/Units 05:57 Calcium 8.6 (8.4-10.2) mg/dL Pituitary panel 02/17/19 Range/Units 05:57 Sodium 138 (137-145) mmol/L Potassium 4.3 (3.6-5.0) mmol/L Chloride 100.8 (98-107) mmol/L Carbon Dioxide 25 (22-30) mmol/L BUN 4 L (7-17) mg/dL Creatinine 0.5 L (0.7-1.2) mg/dL Glucose 124 H (65-100) mg/dL Calcium 8.6 (8.4-10.2) mg/dL Adrenal panel 02/17/19 Range/Units 05:57 Sodium 138 (137-145) mmol/L Potassium 4.3 (3.6-5.0) mmol/L Chloride 100.8 (98-107) mmol/L Carbon Dioxide 25 (22-30) mmol/L BUN 4 L (7-17) mg/dL Creatinine 0.5 L (0.7-1.2) mg/dL Glucose 124 H (65-100) mg/dL Calcium 8.6 (8.4-10.2) mg/dL
[2019-02-17] MEDS ORDERED: DILAUDID IV STA (12:59)
[2019-02-17] MEDS: ZOFRAN IV PRN (13:28)
[2019-02-17] MEDS: ZYVOX PO SCH ×2 (15:18→22:13)
[2019-02-18] MEDS: DILAUDID IV PRN ×2 (04:49→09:14)
[2019-02-18] MEDS: SODIUM CHLORIDE FLUSH SYRINGE 10 ML IV SCH ×2 (04:51→18:21)
[2019-02-18 05:23] LABS: Hematocrit 32.9 % (30.3-42.9); Hemoglobin 11.2 gm/dl (10.1-14.3); Mean Corpuscular HGB Conc 34 % (30-34); Mean Corpuscular Volume 86 fl (79-97); Platelet Count 458 K/mm3 (140-440); Red Blood Count 3.84 M/mm3 (3.65-5.03)
[2019-02-18 05:41] LABS: BUN/Creatinine Ratio 10; Blood Urea Nitrogen 5 mg/dL (7-17); Calcium 9.4 mg/dL (8.4-10.2); Hemolysis Index 4
[2019-02-18] MEDS: FLAGYL 500 MG/100 ML 500 MG/100 ML BAG IV SCH (06:12)
[2019-02-18] MEDS: AZACTAM/NS 2 GM/100 ML 2 GM/100 ML VIAL IV SCH (06:19)
[2019-02-18 06:27] LABS: Band Neutrophils # (Manual) 0.2 K/mm3; Basophils % (Manual) 0 % (0.0-1.8); Platelet Estimate Consistent w Auto; Total Cells Counted 100
--- NOTE | 2019-02-18 08:05 | Progress Note ---
Assessment and Plan Assessment and plan: Patient is a 48 yo woman with a history of hypertension, dyslipidemia, chronic pain syndrome, previous extensive MSSA prosthesis infection and osteomyelitis s/p removal of infected hardware left tibia on 10/30/[address] Dmitriy Willis who presented to [facility] ED on 02/15/19 with buttock pains. WBC was 22.7. * 02/15/19 CT abd/pelvis with contrast Impression: Moderate to severe soft tissue swelling seen in the left medial gluteal cleft, correlated for cellulitis. No gross fluid collections clearly visualized. Perirectal cellulitis/abscess with Sepsis, poa s/p incision and drainage of perirectal abscess with excisional debridement of abscess cavity with large amount of pus in abscess cavity, measured 10cm x 4 cm x 3cm on 02/16/19 Sepsis. Etiology secondary to above. Continue IV antibiotics and follow-up blood cultures. ID following Hypertension. Resume antihypertensive medications. Hyperlipidemia. Continue statin. Chronic pain syndrome. continue present management Multiple Drug Allergies including PCN and Vancomycin. DVT prophylaxis reviewed on sq lovenox Disposition: continue inpatient care, await until surgical culture finalize, growing staph. History Interval history: Patient was seen and examined. Follow-up on current diagnosis of perirectal abscess. No overnight events reported to me. Patient denies any chest pain, shortness breath, nausea/vomiting or severe headaches. Imaging, nursing note, chart, labs and old chart reviewed. Discussed with patient. Hospitalist Physical - Physical exam Narrative exam: Gen: WDWN, NAD, Awake, Alert, Orientated HEENT: NCAT, EOMI, PERRL, OP Clear with good teeth Neck: supple, no adenopathy, no thyromegaly, no JVD CVS/Heart: RRR, normal S1S2, pulses present bilaterally Chest/Lungs: CTA B, Symmetrical chest expansion, good air entry bilaterally GI/Abdomen: soft, NTND, good bowel sounds, no guarding or rebound /Bladder: no suprapubic tenderness, no CVA or paraspinal tenderness Extermity/Skin: no c/c/e, no obvious rash MSK: FROM x 4 Neuro: CN 2-12 grossly intact, no new focal deficits Psych: calm - Constitutional Vitals: Temp Pulse Resp BP Pulse Ox 98.2 F 91 H 18 120/76 96 02/18/19 07:00 02/18/19 07:00 02/18/19 07:00 02/18/19 07:00 02/18/19 07:00 General appearance: Present: no acute distress, well-nourished Results - Labs CBC & Chem 7: 02/18/19 04:41 02/18/19 04:41 Labs: Laboratory Last Values WBC 8.0 K/mm3 (4.5-11.0) 02/18/19 04:41 RBC 3.84 M/mm3 (3.65-5.03) 02/18/19 04:41 Hgb 11.2 gm/dl (10.1-14.3) 02/18/19 04:41 Hct 32.9 % (30.3-42.9) 02/18/19 04:41 MCV 86 fl (79-97) 02/18/19 04:41 MCH 29 pg (28-32) 02/18/19 04:41 MCHC 34 % (30-34) 02/18/19 04:41 RDW 15.0 % (13.2-15.2) 02/18/19 04:41 Plt Count 458 K/mm3 (140-440) H 02/18/19 04:41 Lymph % (Auto) 15.6 % (13.4-35.0) 02/17/19 05:57 [facility] % (Auto) 12.8 % (0.0-7.3) H 02/17/19 05:57 Eos % (Auto) 1.5 % (0.0-4.3) 02/17/19 05:57 Baso % (Auto) 0.8 % (0.0-1.8) 02/17/19 05:57 Lymph # 1.6 K/mm3 (1.2-5.4) 02/17/19 05:57 [facility] [place] # 1.3 K/mm3 (0.0-0.8) H 02/17/19 05:57 Eos # 0.2 K/mm3 (0.0-0.4) 02/17/19 05:57 Baso # 0.1 K/mm3 (0.0-0.1) 02/17/19 05:57 Add Manual Diff Complete 02/18/19 04:41 Total Counted 100 02/18/19 04:41 Seg Neutrophils % 69.3 % (40.0-70.0) 02/17/19 05:57 Seg Neuts % (Manual) 75.0 % (40.0-70.0) H 02/18/19 04:41 2.0 % 02/18/19 04:41 16.0 % (13.4-35.0) 02/18/19 04:41 Reactive Lymphs % (Man) 0 % 02/18/19 04:41 2.0 % (0.0-7.3) 02/18/19 04:41 3.0 % (0.0-4.3) 02/18/19 04:41 0 % (0.0-1.8) 02/18/19 04:41 2.0 % 02/18/19 04:41 0 % 02/18/19 04:41 0 % 02/18/19 04:41 0 % 02/18/19 04:41 Nucleated RBC % Not Reportable 02/18/19 04:41 Seg Neutrophils # 7.2 K/mm3 (1.8-7.7) 02/17/19 05:57 Seg Neutrophils # Man 6.0 K/mm3 (1.8-7.7) 02/18/19 04:41 Band Neutrophils # 0.2 K/mm3 02/18/19 04:41 1.3 K/mm3 (1.2-5.4) 02/18/19 04:41 Abs React Lymphs (Man) 0.0 K/mm3 02/18/19 04:41 0.2 K/mm3 (0.0-0.8) 02/18/19 04:41 0.2 K/mm3 (0.0-0.4) 02/18/19 04:41 0.0 K/mm3 (0.0-0.1) 02/18/19 04:41 0.2 K/mm3 02/18/19 04:41 0.0 K/mm3 02/18/19 04:41 0.0 K/mm3 02/18/19 04:41 Blast Cells # 0.0 K/mm3 02/18/19 04:41 WBC Morphology Not Reportable 02/18/19 04:41 WBC Morphology TNR 02/18/19 04:41 Hypersegmented Neuts Not Reportable 02/18/19 04:41 Hyposegmented Neuts Not Reportable 02/18/19 04:41 Hypogranular Neuts Not Reportable 02/18/19 04:41 Not Reportable 02/18/19 04:41 Not Reportable 02/18/19 04:41 Not Reportable 02/18/19 04:41 Not Reportable 02/18/19 04:41 Not Reportable 02/18/19 04:41 Not Reportable 02/18/19 04:41 Consistent w auto 02/18/19 04:41 Not Reportable 02/18/19 04:41 Plt Clumps, EDTA Not Reportable 02/18/19 04:41 Not Reportable 02/18/19 04:41 Not Reportable 02/18/19 04:41 Not Reportable 02/18/19 04:41 Plt Morphology Comment Not Reportable 02/18/19 04:41 RBC Morphology Not Reportable 02/18/19 04:41 Dimorphic RBCs Not Reportable 02/18/19 04:41 Not Reportable 02/18/19 04:41 Not Reportable 02/18/19 04:41 Not Reportable 02/18/19 04:41 Not Reportable 02/18/19 04:41 Not Reportable 02/18/19 04:41 Not Reportable 02/18/19 04:41 Not Reportable 02/18/19 04:41 Not Reportable 02/18/19 04:41 Not Reportable 02/18/19 04:41 Not Reportable 02/18/19 04:41 Not Reportable 02/18/19 04:41 Not Reportable 02/18/19 04:41 Not Reportable 02/18/19 04:41 Not Reportable 02/18/19 04:41 Not Reportable 02/18/19 04:41 Not Reportable 02/18/19 04:41 Not Reportable 02/18/19 04:41 Not Reportable 02/18/19 04:41 Not Reportable 02/18/19 04:41 Acanthocytes (Spur) Not Reportable 02/18/19 04:41 Rouleaux Not Reportable 02/18/19 04:41 Not Reportable 02/18/19 04:41 Not Reportable 02/18/19 04:41 Not Reportable 02/18/19 04:41 Not Reportable 02/18/19 04:41 Hem Pathologist Commnt No 02/18/19 04:41 Sodium 139 mmol/L (137-145) 02/18/19 04:41 Potassium 4.2 mmol/L (3.6-5.0) 02/18/19 04:41 Chloride 99.6 mmol/L (98-107) 02/18/19 04:41 Carbon Dioxide 26 mmol/L (22-30) 02/18/19 04:41 18 mmol/L 02/18/19 04:41 BUN 5 mg/dL (7-17) L 02/18/19 04:41 0.5 mg/dL (0.7-1.2) L 02/18/19 04:41 Estimated GFR > 60 ml/min 02/18/19 04:41 10 % 02/18/19 04:41 Glucose 112 mg/dL (65-100) H 02/18/19 04:41 Lactic Acid 1.30 mmol/L (0.7-2.0) 02/15/19 19:46 Calcium 9.4 mg/dL (8.4-10.2) 02/18/19 04:41 0.40 mg/dL (0.1-1.2) 02/15/19 19:46 AST 19 units/L (5-40) 02/15/19 19:46 ALT 18 units/L (7-56) 02/15/19 19:46 120 units/L (35-129) 02/15/19 19:46 19.20 mg/dL (0.00-1.30) H 02/15/19 19:46 8.8 g/dL (6.3-8.2) H 02/15/19 19:46 4.3 g/dL (3.9-5) 02/15/19 19:46 1.0 % 02/15/19 19:46 Yellow (Yellow) 02/15/19 Unknown Slightly-cloudy (Clear) 02/15/19 Unknown 8.0 (5.0-7.0) H 02/15/19 Unknown Ur Specific Smoot 1.015 (1.003-1.030) 02/15/19 Unknown 30 mg/dl mg/dL (Negative) 02/15/19 Unknown Neg mg/dL (Negative) 02/15/19 Unknown Neg mg/dL (Negative) 02/15/19 Unknown Neg (Negative) 02/15/19 Unknown Neg (Negative) 02/15/19 Unknown Neg (Negative) 02/15/19 Unknown < 2.0 mg/dL (<2.0) 02/15/19 Unknown Ur Leukocyte Esterase Neg (Negative) 02/15/19 Unknown 2.0 /HPF (0.0-6.0) 02/15/19 Unknown 2.0 /HPF (0.0-6.0) 02/15/19 Unknown U Epithel Cells (Auto) 4.0 /HPF (0-13.0) 02/15/19 Unknown 1+ /HPF (Negative) 02/15/19 Unknown Few /HPF 02/15/19 Unknown Active Medications - Current Medications Current Medications: Generic Name Dose Route Start Last Admin Trade Name Freq PRN Reason Stop Dose Admin Acetaminophen 650 mg 02/15/19 22:44 Tylenol PO Q4H PRN Pain MILD(1-3)/Fever >100.5/BURCIAGA Enoxaparin Sodium 40 mg 02/16/19 10:00 02/17/19 09:50 Lovenox SUB-Q 40 mg QDAY JASON Administration Hydromorphone HCl 0.5 mg 02/16/19 13:52 02/18/19 04:49 Dilaudid IV 0.5 mg Q4H PRN Administration Pain , Severe (7-10) Hydromorphone HCl 1 mg 02/16/19 14:52 Dilaudid PO Q6H PRN Pain , Severe (7-10) Sodium Chloride 1,000 mls @ 100 mls/hr 02/15/19 23:00 02/17/19 22:29 Nacl 0.9% 1000 Ml IV 100 mls/hr DIRECT JASON Administration Aztreonam 2 gm in 100 mls @ 100 mls/hr 02/16/19 14:00 02/18/19 06:19 Azactam/Ns 2 Gm/100 Ml IV 100 mls/hr Q8HR JASON Administration Protocol Metronidazole 500 mg in 100 mls @ 100 mls/hr 02/16/19 14:00 02/18/19 06:12 Flagyl 500 Mg/100 Ml IV 100 mls/hr Q8HR JASON Administration Protocol Linezolid 600 mg 02/17/19 14:00 02/17/19 22:13 Zyvox PO 600 mg Q12HR JASON Administration Protocol Metoclopramide HCl 10 mg 02/16/19 14:55 Reglan IV ONCE PRN Nausea And Vomiting Naloxone HCl 0.1 mg 02/16/19 14:55 Narcan 0.4 Mg/1 Ml IV Q2MIN PRN Res Rate </= 8 or 02 SAT < 92% Ondansetron HCl 4 mg 02/15/19 22:44 02/17/19 13:28 Zofran IV 4 mg Q4H PRN Administration Nausea And Vomiting Sodium Chloride 10 ml 02/16/19 10:00 02/18/19 04:51 Sodium Chloride Flush Syringe 10 Ml IV 10 ml BID JASON Administration Sodium Chloride 10 ml 02/15/19 22:44 Sodium Chloride Flush Syringe 10 Ml IV PRN PRN LINE FLUSH Nutrition/Malnutrition Assess - Dietary Evaluation Nutrition/Malnutrition Findings: Nutrition Notes Start: 02/16/19 13:32 Freq: Status: Active Protocol: Document 02/16/19 13:32 RM (Rec: 02/16/19 13:42 RM [id number]) Nutrition Notes Need for Assessment generated from: MST Initial or Follow up Assessment Current Diagnosis Sepsis,Hypertension, Hyperlipidemia Other Pertinent Diagnosis Perirectal abscess/cellulitis Current Diet NPO Labs/Tests Reviewed Pertinent Medications Reviewed Height 5 ft 2 in Weight 70.8 kg Usual Body Weight 78.18 kg [place] Body Weight (kg) 50.00 BMI 28.5 Weight change and time frame 9.4% wt loss X 3 months Subjective/Other Information Screened for malnutrition risk and skin risk. Abrahan 20 points. Pt NPO for I &D. 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 Declined regular ONS d/t it tasting like medicine. Admitted to a lot of diarrhea. Stated UBW was 172 lbs 3 months ago. No temporal or orbital wasting . 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 No Is Patient Ambulatory and/or Out of Bed No REE-([place]-confined to bed) [phone] Calculation Used for Recommendations [place] Additional Notes Protein Needs: 106-142g (1.5- 2g/kg) Fluid Needs: 1 ml/kcal Nutrition Intervention Change Diet Order: Advance diet when medically able Add Supplement/Snack (indicate name/kcal Ensure Clear Apple 1 daily /protein ) once diet advanced Provides kCal: 240 Provides Protein (gm) 8 Goal #1 Diet advancement Anticipated Discharge Needs: Unable to determine at this time Follow-Up By: 02/18/19 Additional Comments Follow for PO and ONS intakes
[2019-02-18] MEDS: LOVENOX SUB-Q SCH (09:18)
[2019-02-18] MEDS: ZYVOX PO SCH (09:18)
--- NOTE | 2019-02-18 10:24 | Progress Note ---
Assessment and Plan Cultures: 02/16/19 Surgical cultures : Staph aureus 02/15/19 Urine: 10-100k of usual skin digna 02/15/19 Blood: no growth to date 48-year-old woman with a history of hypertension, hyperlipidemia, chronic pain, obesity, known to ID service from an admission in November this year with sepsis due to Left knee septic arthritis and hardware infection with MSSA, who presents to ER on 02/15/19 with complaints of fever, shaking chills, body aches, Left buttock pain. Found to have: 1) Sepsis: Resolved. Due to Left perirectal abscess. Last fever 02/15/19. CRP 19.20 2) Left perirectal abscess. CT A/P showed moderate to severe soft tissue swelling in the left medial gluteal cleft, correlate for cellulitis, no drainable fluid collection. Recent CT A/P on 01/28/19 showed focal colitis of ascending colon. Buttock surgical culture grew Staph aureus, follow up for ID and ROYAL's. s/p I & D of perirectal abscess with excisional debridement of abscess cavity on 02/16/19. 3) H/o MSSA Left knee septic arthritis and hardware infection in November 2018. 4) Allergies, PCN and Vancomycin. Recommendations -discontinue azactam and flagyl, D3 -continue Linezolid 600mg PO every 12 hours, D2 -F/u blood cultures -f/u Surgical cultures -F/u buttock cultures for ID and ROYAL's [facility] M: [phone] O:[phone] Subjective Date of service: 02/18/19 Interval history: Patient seen and examined. Reports continued left remberto-rectal discomfort when moving. No fevers. Objective - Exam Narrative Exam: General appearance: Alert in NAD, conversant. Eyes: anicteric sclerae, moist conjunctivae; no lid-lag; PERRLA HENT: Atraumatic; oropharynx clear with moist mucous membranes and no mucosal ulcerations/no oral thrush; normal hard and soft palate. Normal external ears. Neck: Trachea midline; supple, no thyromegaly or lymphadenopathy Lungs: CTA, with normal respiratory effort and no intercostal retractions CV: RRR, no murmurs Abdomen: Soft, non-tender; no masses or hepatosplenomegaly. Medial Left gluteus erythematous. packed with gauze, + dressing. Extremities: No peripheral edema. LLE surgical scar. Skin: Normal temperature, turgor and texture; no rash, ulcers or subcutaneous nodules Psych: Appropriate affect, alert and oriented to person, place and time. Neuro: alert and oriented x 3. Moving all extremities. Non-focal deficits. Lines: No CVL / PICC - Constitutional Vitals: Vital Signs Temp Pulse Resp BP Pulse Ox 98.2 F 91 H 18 120/76 96 02/18/19 07:00 02/18/19 07:00 02/18/19 07:00 02/18/19 07:00 02/18/19 07:00 Temperature -Last 24 Hours Temperature 98.2 F Temperature 98.5 F Temperature 98.2 F Temperature 97.9 F Temperature 98.0 F Temperature 97.8 F Temperature 97.8 F Temperature 97.8 F - Labs CBC & Chem 7: 02/18/19 04:41 02/18/19 04:41 Labs: Abnormal lab results 02/18/19 02/18/19 Range/Units 04:41 04:41 Plt Count 458 H (140-440) K/mm3 Seg Neuts % (Manual) 75.0 H (40.0-70.0) % BUN 5 L (7-17) mg/dL Creatinine 0.5 L (0.7-1.2) mg/dL Glucose 112 H (65-100) mg/dL
[2019-02-18] MEDS: DILAUDID PO PRN (13:51)
--- NOTE | 2019-02-18 14:13 | Progress Note ---
Assessment and Plan 48 yo F s/p incision and drainage of perirectal abscess with excisional debridement of abscess cavity, POD 3 Plan; 1. continue wound care per wire insulator 2. prn PO pain control - I explained to the patient that she will no longer get IV narcotics while in the hospital. We need to try and control her pain with oral medications so that she can transition to an oral regimen when she is at home. She told me that she is seeing her pain management doctor tomorrow to get her RX for percocet. Previously during this admission, she told me that she could not take percocet because it keeps her awake. 3. abx per ID - d/w Dr. Dixon, will order linezolid PO for dc. 4. f/u OR cultures - prelim is staph aureus. 5. case management on board - home health care, approval for abx Will s/o. Pt may be discharged once PO abx are approved. Pt to follow up in wound care clinic on dc. Thank you, please call with questions. Subjective Date of service: 02/18/19 Narrative: Pt seen and examined. States she has pain in her lower back. She has hx of chron ic pain with degenerative disc disease. 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 She only wants IV pain medication in the hospital. She refuses to take PO pain meds. Pt asking to go home today. Objective Vital Signs - 12hr 02/18/19 02/18/19 02/18/19 04:52 05:29 07:00 Temperature 98.5 F 98.2 F Pulse Rate 101 H 104 H 91 H Respiratory 16 18 Rate Blood Pressure 119/77 120/76 [Left] O2 Sat by Pulse 97 93 96 Oximetry 02/18/19 02/18/19 02/18/19 10:00 11:00 13:51 Temperature 97.9 F Pulse Rate 105 H Respiratory 18 20 Rate Blood Pressure 111/56 [Left] O2 Sat by Pulse 97 95 Oximetry - General physical appearance Narrative Exam: gen: AAOx3. NAD CV: s1, S2+ Resp: even and unlabored Ext: no c/c/e - Labs 02/18/19 04:41 02/18/19 04:41 Diabetes panel 02/18/19 Range/Units 04:41 Sodium 139 (137-145) mmol/L Potassium 4.2 (3.6-5.0) mmol/L Chloride 99.6 (98-107) mmol/L Carbon Dioxide 26 (22-30) mmol/L BUN 5 L (7-17) mg/dL Creatinine 0.5 L (0.7-1.2) mg/dL Glucose 112 H (65-100) mg/dL Calcium 9.4 (8.4-10.2) mg/dL Calcium panel 02/18/19 Range/Units 04:41 Calcium 9.4 (8.4-10.2) mg/dL Pituitary panel 02/18/19 Range/Units 04:41 Sodium 139 (137-145) mmol/L Potassium 4.2 (3.6-5.0) mmol/L Chloride 99.6 (98-107) mmol/L Carbon Dioxide 26 (22-30) mmol/L BUN 5 L (7-17) mg/dL Creatinine 0.5 L (0.7-1.2) mg/dL Glucose 112 H (65-100) mg/dL Calcium 9.4 (8.4-10.2) mg/dL Adrenal panel 02/18/19 Range/Units 04:41 Sodium 139 (137-145) mmol/L Potassium 4.2 (3.6-5.0) mmol/L Chloride 99.6 (98-107) mmol/L Carbon Dioxide 26 (22-30) mmol/L BUN 5 L (7-17) mg/dL Creatinine 0.5 L (0.7-1.2) mg/dL Glucose 112 H (65-100) mg/dL Calcium 9.4 (8.4-10.2) mg/dL
[2019-02-18 17:01] VITALS: BP 143/94
--- NOTE | 2019-02-19 11:41 | Operative Report ---
OPERATIVE REPORT Date of procedure: 02/16/19 Pre-op diagnosis: perirectal abscess Post-op diagnosis: same Findings: large amount of pus in abscess cavity, measured 10cm x 4 cm x 3cm Procedure: incision and drainage of perirectal abscess with excisional debridement of abscess cavity Anesthesia: MAC, local Surgeon: VIANNEY STOKES Estimated blood loss: minimal Pathology: list (cultures) Specimen disposition: to lab Condition: stable Disposition: PACU HPI and indication: 48 yo F presented to ER with increasing pain in her perirectal area along with swelling. On physical exam, she was found to have cellulitis and possible abscess. CT scan was done, which showed cellulitis and on review of imaging by me, abscess was suspected. The patient was started on antibiotics and admitted to the hospital. I recommended incision and drainage in the operating room. All risks, benefits, and alternatives of surgery were discussed with the patient. Consent obtained. PROCEDURE IN DETAIL: The patient was identified in the preoperative area and taken back to the operating room and placed on the operating table in the left lateral decubitus position with right side up. The perirectal area and left buttock were prepped and draped in the usual sterile fashion. A timeout was performed. The skin at the intended incision site was anesthetized with local anesthetic. There was a small opening in the upper left gluteal cleft region that was probed with a hemostat. There was immediate drainage of purulent fluid. Cultures were obtained. Using the hemostat for guidance into the cavity, a 4-5 cm incision was made using a 15 blade in the skin overlying the abscess cavity. There was immediate drainage of purulent material. All purulent material was expressed and the abscess cavity was probed with a gloved finger in order to break up all loculations. There was some fibrinous debris and necrotic tissue in the abscess cavity, which was debrided using a forcep and cautery. Once all loculations were broken up and necrotic tissue debrided, the wound was copiously irrigated with saline solution and hemostasis ensured. Once hemostasis was ensured, the wound was packed with 1 piece of saline moistened Kerlix covered with 4 x 4 fluff gauze, ABD pads and secured with Medipore tape. The patient was then transferred back to the stretcher. All sponge, instrument and sharp counts were correct x 2 at the end of the case. The patient was taken to PACU in stable condition. [facility]# [id number] QUIRINO/RADAMES ANDERSOND
--- NOTE | 2019-02-19 15:02 | Discharge Summary ---
Providers - Providers Date of Admission: 02/15/19 22:44 Attending physician: BOOGIE LOFTON 02/15/19 22:37 Consult to Physician [CONS] Routine Comment: already contacted in ed . Consulting Provider: VIANNEY STOKES Physician Instructions: Reason For Exam: rectal abscess 02/16/19 07:23 Consult to Physician [CONS] Routine Comment: COMPLETED - MAURICIO Consulting Provider: TASIA ALBRECHT Physician Instructions: Reason For Exam: perirectal cellulitis 02/16/19 14:52 Consult to Wound/ET Nurse [CONS] Routine Reason For Exam: right gluteal wound, s/p I&D 02/18/19 15:40 Consult to Case Management [CONS] Urgent Services Needed at Discharge: Other Notified:: yes Additional Physician Instructions: [facility] M [phone] O [phone] F [phone] OUTPATIENT PARENTERAL ANTIBIOTIC THERAPY ORDERS Diagnoses: Alvina-rectal Abscess Antimicrobial administration: Linezolid 600mg PO BID for 7 days. Lines: None Lab monitoring: NONE Will follow-up in ID clinic in one week . Sho Villalpando NP/Tasia Dixon MD Date: 02/18/19 Primary care physician: LUCIEN MORGAN Hospitalization Condition: Stable Hospital course: see progress note 02/18/19 Patient left AMA Disposition: DC-07 LEFT AGAINST MED ADVICE Core Measure Documentation - Palliative Care Palliative Care/ Comfort Measures: Not Applicable - Core Measures Any of the following diagnoses?: none - VTE Discharge Requirements Deep Vein Thrombosis/Pulmonary Embolism Present on Admission: No Has pt received <5 days of overlap therapy or INR<2.0: No Anticoagulant overlap therapy prescribed at discharge: No Contraindication No Overlap Therapy order at DC: Not Indicated Exam - Constitutional Vitals: Temp Pulse Resp BP Pulse Ox 98.1 F 96 H 18 143/94 99 02/18/19 16:45 02/18/19 16:45 02/18/19 16:45 02/18/19 16:45 02/18/19 16:45 Plan Follow up with: PRIMARY CAREMD [Referring] - 3-5 Days
== END 2019-02-18 20:30 | disposition left against medical advice (07) | DRG 854 ==
LOC: ED 16:09 → 3B-SURG 22:44
PROVIDERS: ADMIT Internal Medicine; ATTEND Internal Medicine
PROC: 0JB90ZZ Excision of Buttock Subcutaneous Tissue and Fascia, Open Approach (ICD-10-PCS; principal; 2019-02-16)
DX: A41.9 Sepsis, unspecified organism (principal); K61.1 Rectal abscess; L02.31 Cutaneous abscess of buttock; L03.317 Cellulitis of buttock; E78.5 Hyperlipidemia, unspecified; I10 Essential (primary) hypertension; E78.00 Pure hypercholesterolemia, unspecified; G89.4 Chronic pain syndrome; Z53.21 Procedure and treatment not carried out due to patient leaving prior to being seen by health care provider; Z82.49 Family history of ischemic heart disease and other diseases of the circulatory system; Z90.710 Acquired absence of both cervix and uterus; Z79.899 Other long term (current) drug therapy; Z88.8 Allergy status to other drugs, medicaments and biological substances; Z88.0 Allergy status to penicillin; Z88.1 Allergy status to other antibiotic agents; Z88.6 Allergy status to analgesic agent
CPT/HCPCS: 36415; 74177; 80048; 80053; 81001; 82140; 85007; 85025; 86140; 87040; 87075; 87076; 87086; 87116; 87186; 94760; 96365; 96375; G0378; J1170; J1650; J1956; J2001; J2250; J2270; J2370; J2405; J2704; J3010; J7030; Q9967

== ENCOUNTER 2019-03-10 11:20 | Emergency (ER) | payer MEDICAID ==
--- NOTE | 2019-03-10 11:31 | Emergency Department Report ---
Blank Doc - Documentation Documentation: This is a 48-year-old male that presents with lower back pain where abscess has been I/D last month. Denies any fever or chills. This initial assessment/diagnostic orders/clinical plan/treatment(s) is/are subject to change based on patient's health status, clinical progression and re- assessment by fellow clinical providers in the ED. Further treatment and workup at subsequent clinical providers discretion. Patient/guardians urged not to elope from the ED as their condition may be serious if not clinically assessed and managed. Initial orders include: 1- Patient sent to [facility] for further evaluation and treatment
[2019-03-10 11:32] VITALS: BP 151/95
[2019-03-10 13:34] LABS: Hematocrit 38.9 % (30.3-42.9); Hemoglobin 13.1 gm/dl (10.1-14.3); Mean Corpuscular HGB Conc 34 % (30-34); Mean Corpuscular Volume 86 fl (79-97); Platelet Count 461 K/mm3 (140-440); Red Blood Count 4.52 M/mm3 (3.65-5.03); Red Cell Distribution Width 15.4 % (13.2-15.2)
[2019-03-10 13:55] LABS: Alanine Aminotransferase 16 units/L (7-56); Albumin 4.6 g/dL (3.9-5); BUN/Creatinine Ratio 13; Blood Urea Nitrogen 8 mg/dL (7-17); Calcium 10.1 mg/dL (8.4-10.2); Hemolysis Index 9
[2019-03-10] MEDS ORDERED: MORPHINE IM ONE (14:25)
[2019-03-10] MEDS ORDERED: ZOFRAN IM ONE (14:25)
--- NOTE | 2019-03-10 14:29 | Emergency Department Report ---
ED General Adult HPI - General Chief complaint: Back Pain/Injury Stated complaint: BACK PAIN/FEVER Time Seen by Provider: 03/10/19 11:30 Source: patient Mode of arrival: Ambulatory Limitations: No Limitations - History of Present Illness Initial comments: The patient presents to the emergency department with a chief complaint of right buttocks pain. Patient states that she had a surgical procedure done due to abscess 2 weeks ago and left the hospital AMA because she had things to do at home. Patient has not had a follow-up appointment. Patient presents to ED today because of the pain. Patient denies fever to me on my history and physical. -: Gradual Location: buttocks Radiation: non-radiation Severity scale (0 -10): 5 Quality: burning, aching Consistency: constant Improves with: rest Worsens with: movement Associated Symptoms: denies other symptoms Treatments Prior to Arrival: none - Related Data Previous Rx's Medication Instructions Recorded Last Taken Type Meloxicam [Mobic] 7.5 mg PO DAILY #30 tablet 11/02/18 Unknown Rx Pravastatin [Pravachol] 20 mg PO QHS #30 tablet 11/02/18 Unknown Rx Prednisone [predniSONE 5 mg (6-Day 5 mg PO .TAPER #1 tab.ds.pk 11/02/18 Unknown Rx Pack, 21 Tabs)] diphenhydrAMINE [Benadryl CAP] 25 mg PO Q6HR PRN #60 capsule 11/02/18 Unknown Rx tiZANidine [Zanaflex 4mg TAB] 4 mg PO Q8H PRN #90 tablet 11/02/18 Unknown Rx Oxycodone HCl/Acetaminophen 1 each PO Q6HR PRN #60 tablet 11/03/18 Unknown Rx [Percocet 10/325 mg] Pantoprazole [Protonix TAB] 40 mg PO QDAY #30 tablet 11/18/18 Unknown Rx Linezolid [Zyvox] 600 mg PO BID #26 tablet 11/29/18 Unknown Rx HYDROcodone/APAP 5-325 [[place] 1 - 2 each PO Q6HR PRN #14 tablet 01/28/19 Unknown Rx 5/325] Promethazine [Phenergan] 25 mg PO Q6HR PRN #20 tab 01/28/19 Unknown Rx levoFLOXacin [Levaquin] 750 mg PO QDAY #10 tablet 01/28/19 Unknown Rx metroNIDAZOLE [Flagyl] 500 mg PO Q8HR #30 tablet 01/28/19 Unknown Rx HYDROcodone/APAP 5-325 [[place] 1 each PO Q6HR PRN #12 tablet 03/10/19 Unknown Rx 5/325] Allergies Allergy/AdvReac Type Severity Reaction Status Date / Time aspirin Allergy Swelling Verified 02/15/19 16:10 hydroxyzine HCl Allergy Anaphylaxis Verified 02/15/19 16:10 [From Vistaril] hydroxyzine pamoate Allergy Anaphylaxis Verified 02/15/19 16:10 [From Vistaril] ketorolac tromethamine Allergy Swelling Verified 02/15/19 16:10 [From Toradol] Penicillins Allergy Anaphylaxis Verified 02/15/19 16:10 tramadol Allergy Shortness Verified 02/15/19 16:10 of Breath vancomycin Allergy Rash Verified 02/15/19 16:10 ED Review of Systems ROS: Stated complaint: BACK PAIN/FEVER Other details as noted in HPI Comment: All other systems reviewed and negative Constitutional: denies: chills, fever Eyes: denies: eye pain, eye discharge, vision change ENT: denies: ear pain, throat pain Respiratory: denies: cough, shortness of breath, wheezing Cardiovascular: denies: chest pain, palpitations Endocrine: no symptoms reported Gastrointestinal: denies: abdominal pain, nausea, diarrhea Genitourinary: denies: urgency, dysuria, discharge Musculoskeletal: denies: back pain, joint swelling, arthralgia Skin: denies: rash, lesions Neurological: denies: headache, weakness, paresthesias Psychiatric: denies: anxiety, depression Hematological/Lymphatic: denies: easy bleeding, easy bruising ED Past Medical Hx - Past Medical History Hx Hypertension: Yes Hx Heart Attack/AMI: No Hx Congestive Heart Failure: No Hx Diabetes: No Hx Deep Vein Thrombosis: No Hx Liver Disease: No Hx Renal Disease: No Hx Arthritis: Yes Hx Seizures: No Hx Asthma: No Hx COPD: No Hx HIV: No Additional medical history: chronic pain, hypercholesterolemia, sepsis in 2018, infected hardware in LLL removed 11/2018. spinal stenosis - Surgical History Past Surgical History?: Yes Hx Pacemaker: No Hx Internal Defibrillator: No Additional Surgical History: L leg fx repair. hyst. pelvic fx repair. Pt b ecame septic due to infection caused by metal in LLL: removed early 2018 - Social History Smoking Status: Never Smoker Substance Use Type: None - Medications Home Medications: Home Medications Medication Instructions Recorded Confirmed Last Taken Type Meloxicam [Mobic] 7.5 mg PO DAILY #30 tablet 11/02/18 01/28/19 Unknown Rx Pravastatin [Pravachol] 20 mg PO QHS #30 tablet 11/02/18 01/28/19 Unknown Rx Prednisone [predniSONE 5 mg (6-Day 5 mg PO .TAPER #1 tab.ds.pk 11/02/18 01/28/19 Unknown Rx Pack, 21 Tabs)] diphenhydrAMINE [Benadryl CAP] 25 mg PO Q6HR PRN #60 capsule 11/02/18 01/28/19 Unknown Rx tiZANidine [Zanaflex 4mg TAB] 4 mg PO Q8H PRN #90 tablet 11/02/18 01/28/19 Unknown Rx Oxycodone HCl/Acetaminophen 1 each PO Q6HR PRN #60 tablet 11/03/18 01/28/19 Unknown Rx [Percocet 10/325 mg] Pantoprazole [Protonix TAB] 40 mg PO QDAY #30 tablet 11/18/18 01/28/19 Unknown Rx Linezolid [Zyvox] 600 mg PO BID #26 tablet 11/29/18 01/28/19 Unknown Rx HYDROcodone/APAP 5-325 [[place] 1 - 2 each PO Q6HR PRN #14 tablet 01/28/19 Unknown Rx 5/325] Promethazine [Phenergan] 25 mg PO Q6HR PRN #20 tab 01/28/19 Unknown Rx levoFLOXacin [Levaquin] 750 mg PO QDAY #10 tablet 01/28/19 Unknown Rx metroNIDAZOLE [Flagyl] 500 mg PO Q8HR #30 tablet 01/28/19 Unknown Rx HYDROcodone/APAP 5-325 [[place] 1 each PO Q6HR PRN #12 tablet 03/10/19 Unknown Rx 5/325] ED Physical Exam - General Limitations: No Limitations General appearance: alert, in no apparent distress - Head Head exam: Present: atraumatic, normocephalic - Eye Eye exam: Present: normal appearance, PERRL, EOMI - ENT ENT exam: Present: mucous membranes moist - Neck Neck exam: Present: normal inspection - Respiratory Respiratory exam: Present: normal lung sounds bilaterally. Absent: respiratory distress, wheezes, rales - Cardiovascular Cardiovascular Exam: Present: regular rate, normal rhythm. Absent: systolic murmur, diastolic murmur, rubs, gallop - GI/Abdominal GI/Abdominal exam: Present: soft, normal bowel sounds. Absent: distended, tenderness - Rectal Rectal exam: Present: other (Chaperoned by Nurse Ronak lowery R.N. at 2:22 PM. The surgical site appears to be healing well without signs of erythema or discharge) - Extremities Exam Extremities exam: Present: normal inspection - Back Exam Back exam: Present: normal inspection - Neurological Exam Neurological exam: Present: alert, oriented X3 - Psychiatric Psychiatric exam: Present: normal affect, normal mood - Skin Skin exam: Present: warm, dry, intact, normal color. Absent: rash ED Course Vital Signs 03/10/19 11:30 Temperature 97.8 F Pulse Rate 109 H Respiratory 20 Rate Blood Pressure 151/95 ED Medical Decision Making - Lab Data Result diagrams: 03/10/19 13:14 03/10/19 13:14 Lab Results 03/10/19 03/10/19 Range/Units 13:14 13:14 WBC 6.6 (4.5-11.0) K/mm3 RBC 4.52 (3.65-5.03) M/mm3 Hgb 13.1 (10.1-14.3) gm/dl Hct 38.9 (30.3-42.9) % MCV 86 (79-97) fl MCH 29 (28-32) pg MCHC 34 (30-34) % RDW 15.4 H (13.2-15.2) % Plt Count 461 H (140-440) K/mm3 Sodium 138 (137-145) mmol/L Potassium 4.2 (3.6-5.0) mmol/L Chloride 99.6 (98-107) mmol/L Carbon Dioxide 25 (22-30) mmol/L Anion Gap 18 mmol/L BUN 8 (7-17) mg/dL Creatinine 0.6 L (0.7-1.2) mg/dL Estimated GFR > 60 ml/min BUN/Creatinine Ratio 13 % Glucose 101 H (65-100) mg/dL Calcium 10.1 (8.4-10.2) mg/dL Total Bilirubin 0.30 (0.1-1.2) mg/dL AST 16 (5-40) units/L ALT 16 (7-56) units/L Alkaline Phosphatase 79 (35-129) units/L Total Protein 8.6 H (6.3-8.2) g/dL Albumin 4.6 (3.9-5) g/dL Albumin/Globulin Ratio 1.2 % - Medical Decision Making The patient instructed to follow-up with her surgeon for postop evaluation. Critical care attestation.: If time is entered above; I have spent that time in minutes in the direct care of this critically ill patient, excluding procedure time. ED Disposition Clinical Impression: Buttock pain Disposition: DC-01 TO HOME OR SELFCARE Is pt being admited?: No Does the pt Need Aspirin: No Condition: Stable Additional Instructions: return if worse Referrals: JANNA BALLESTEROS MD [Primary Care Provider] - 3-5 Days VIANNEY STOKES DO [Staff Physician] - 3-5 Days Time of Disposition: 15:09
== END 2019-03-10 15:18 | disposition home or self-care (01) ==
LOC: ED 11:20
DX: M79.18 Myalgia, other site (principal); I10 Essential (primary) hypertension; M19.90 Unspecified osteoarthritis, unspecified site; E78.00 Pure hypercholesterolemia, unspecified; G89.29 Other chronic pain; Z79.899 Other long term (current) drug therapy; Z88.6 Allergy status to analgesic agent; Z88.8 Allergy status to other drugs, medicaments and biological substances
CPT/HCPCS: 36415; 80053; 85027; 96372; 99283; J2270; J2405

== ENCOUNTER 2019-03-16 11:16 | Observation (INO) | payer MEDICAID ==
--- NOTE | 2019-03-16 11:41 | Event Note ---
ED Screening Note Date of service: 03/16/19 Time: 11:43 ED Screening Note: 48 y/o female comes in for increase pain for abscess site with drainage. Patient was sent home on levoquin Culture grew out MRSA sensitive to bactrim and vancomycin. This initial assessment/diagnostic orders/clinical plan/treatment(s) is/are subject to change based on patients health status, clinical progression and re- assessment by fellow clinical providers in the ED. Further treatment and workup at subsequent clinical providers discretion. Patient/guardian urged not to elope from the ED as their condition may be serious if not clinically assessed and managed. Initial orders include:
[2019-03-16 12:59] LABS: Basophils # (Auto) 0.1 K/mm3 (0.0-0.1); Basophils % (Auto) 0.8 % (0.0-1.8); Eosinophils % (Auto) 0.3 % (0.0-4.3); Hematocrit 38.1 % (30.3-42.9); Hemoglobin 12.8 gm/dl (10.1-14.3); Lymphocytes # (Auto) 1.7 K/mm3 (1.2-5.4); Lymphocytes % (Auto) 15.4 % (13.4-35.0); Mean Corpuscular HGB Conc 34 % (30-34); Mean Corpuscular Volume 86 fl (79-97); Monocytes # (Auto) 0.5 K/mm3 (0.0-0.8); Monocytes % (Auto) 4.7 % (0.0-7.3); Platelet Count 533 K/mm3 (140-440); Red Blood Count 4.43 M/mm3 (3.65-5.03); Red Cell Distribution Width 15.6 % (13.2-15.2)
--- NOTE | 2019-03-16 13:12 | Emergency Department Report ---
ED General Adult HPI - General Chief complaint: Skin/Abscess/Foreign Body Stated complaint: BACK PAIN Time Seen by Provider: 03/16/19 12:59 Source: patient Mode of arrival: Ambulatory Limitations: No Limitations - History of Present Illness Initial comments: Patient is 48 years old female with history of perirectal abscess last month incision and drainage was done by Dr. Hughes. Patient presented to the ER stating that her pain is worse and she is having more discharge coming out. Patient stated that her symptoms improved initially after the surgery but now for the last few days and became worse with more discharge and pain. Patient denied any fever or chills. No nausea or vomiting. - Related Data Previous Rx's Medication Instructions Recorded Last Taken Type Meloxicam [Mobic] 7.5 mg PO DAILY #30 tablet 11/02/18 Unknown Rx Pravastatin [Pravachol] 20 mg PO QHS #30 tablet 11/02/18 Unknown Rx Prednisone [predniSONE 5 mg (6-Day 5 mg PO .TAPER #1 tab.ds.pk 11/02/18 Unknown Rx Pack, 21 Tabs)] diphenhydrAMINE [Benadryl CAP] 25 mg PO Q6HR PRN #60 capsule 11/02/18 Unknown Rx tiZANidine [Zanaflex 4mg TAB] 4 mg PO Q8H PRN #90 tablet 11/02/18 Unknown Rx Oxycodone HCl/Acetaminophen 1 each PO Q6HR PRN #60 tablet 11/03/18 Unknown Rx [Percocet 10/325 mg] Pantoprazole [Protonix TAB] 40 mg PO QDAY #30 tablet 11/18/18 Unknown Rx Linezolid [Zyvox] 600 mg PO BID #26 tablet 11/29/18 Unknown Rx HYDROcodone/APAP 5-325 [[place] 1 - 2 each PO Q6HR PRN #14 tablet 01/28/19 Unknown Rx 5/325] Promethazine [Phenergan] 25 mg PO Q6HR PRN #20 tab 01/28/19 Unknown Rx levoFLOXacin [Levaquin] 750 mg PO QDAY #10 tablet 01/28/19 Unknown Rx metroNIDAZOLE [Flagyl] 500 mg PO Q8HR #30 tablet 01/28/19 Unknown Rx HYDROcodone/APAP 5-325 [[place] 1 each PO Q6HR PRN #12 tablet 03/10/19 Unknown Rx 5/325] Allergies Allergy/AdvReac Type Severity Reaction Status Date / Time aspirin Allergy Swelling Verified 03/16/19 11:19 hydroxyzine HCl Allergy Anaphylaxis Verified 03/16/19 11:19 [From Vistaril] hydroxyzine pamoate Allergy Anaphylaxis Verified 03/16/19 11:19 [From Vistaril] ketorolac tromethamine Allergy Swelling Verified 03/16/19 11:19 [From Toradol] Penicillins Allergy Anaphylaxis Verified 03/16/19 11:19 tramadol Allergy Shortness Verified 03/16/19 11:19 of Breath vancomycin Allergy Rash Verified 03/16/19 11:19 ED Review of Systems ROS: Stated complaint: BACK PAIN Other details as noted in HPI Comment: All other systems reviewed and negative Constitutional: denies: chills, fever Respiratory: denies: cough, orthopnea Cardiovascular: palpitations. denies: chest pain Gastrointestinal: denies: abdominal pain, nausea, vomiting, diarrhea, constipation, hematemesis, melena, hematochezia Musculoskeletal: denies: back pain Neurological: denies: headache, weakness, numbness, paresthesias, confusion, abnormal gait ED Past Medical Hx - Past Medical History Hx Hypertension: Yes Hx Heart Attack/AMI: No Hx Congestive Heart Failure: No Hx Diabetes: No Hx Deep Vein Thrombosis: No Hx Liver Disease: No Hx Renal Disease: No Hx Arthritis: Yes Hx Seizures: No Hx Asthma: No Hx COPD: No Hx HIV: No Additional medical history: chronic pain, hypercholesterolemia, sepsis in 2018, infected hardware in LLL removed 11/2018. spinal stenosis - Surgical History Hx Pacemaker: No Hx Internal Defibrillator: No Additional Surgical History: L leg fx repair. hyst. pelvic fx repair. Pt became septic due to infection caused by metal in LLL: removed early 2018 - Social History Smoking Status: Never Smoker Substance Use Type: None - Medications Home Medications: Home Medications Medication Instructions Recorded Confirmed Last Taken Type Meloxicam [Mobic] 7.5 mg PO DAILY #30 tablet 11/02/18 01/28/19 Unknown Rx Pravastatin [Pravachol] 20 mg PO QHS #30 tablet 11/02/18 01/28/19 Unknown Rx Prednisone [predniSONE 5 mg (6-Day 5 mg PO .TAPER #1 tab.ds.pk 11/02/18 01/28/19 Unknown Rx Pack, 21 Tabs)] diphenhydrAMINE [Benadryl CAP] 25 mg PO Q6HR PRN #60 capsule 11/02/18 01/28/19 Unknown Rx tiZANidine [Zanaflex 4mg TAB] 4 mg PO Q8H PRN #90 tablet 11/02/18 01/28/19 Unknown Rx Oxycodone HCl/Acetaminophen 1 each PO Q6HR PRN #60 tablet 11/03/18 01/28/19 Unknown Rx [Percocet 10/325 mg] Pantoprazole [Protonix TAB] 40 mg PO QDAY #30 tablet 11/18/18 01/28/19 Unknown Rx Linezolid [Zyvox] 600 mg PO BID #26 tablet 11/29/18 01/28/19 Unknown Rx HYDROcodone/APAP 5-325 [[place] 1 - 2 each PO Q6HR PRN #14 tablet 01/28/19 Unknown Rx 5/325] Promethazine [Phenergan] 25 mg PO Q6HR PRN #20 tab 01/28/19 Unknown Rx levoFLOXacin [Levaquin] 750 mg PO QDAY #10 tablet 01/28/19 Unknown Rx metroNIDAZOLE [Flagyl] 500 mg PO Q8HR #30 tablet 01/28/19 Unknown Rx HYDROcodone/APAP 5-325 [[place] 1 each PO Q6HR PRN #12 tablet 03/10/19 Unknown Rx 5/325] ED Physical Exam - General Limitations: No Limitations General appearance: alert, in no apparent distress - Head Head exam: Present: atraumatic, normocephalic, normal inspection - Eye Eye exam: Present: normal appearance - ENT ENT exam: Present: normal exam, normal orophraynx, mucous membranes moist - Neck Neck exam: Present: normal inspection, full ROM. Absent: tenderness, meningi smus, lymphadenopathy, thyromegaly - Respiratory Respiratory exam: Present: normal lung sounds bilaterally - Cardiovascular Cardiovascular Exam: Present: tachycardia, normal heart sounds - GI/Abdominal GI/Abdominal exam: Present: soft - Back Exam Back exam: Present: normal inspection. Absent: CVA tenderness (R), CVA tenderness (L), muscle spasm, paraspinal tenderness, vertebral tenderness - Neurological Exam Neurological exam: Present: alert, oriented X3, CN II-XII intact, normal gait - Skin Skin exam: Present: warm, other (perirectal abscess, surgical wound is opened with greenish discharge. Tenderness around the wound edges.) ED Course Vital Signs 03/16/19 11:40 Temperature 98.4 F Pulse Rate 119 H Respiratory 18 Rate Blood Pressure 142/96 O2 Sat by Pulse 97 Oximetry ED Medical Decision Making - Lab Data Result diagrams: 03/16/19 12:26 03/16/19 12:26 - Medical Decision Making Patient is 48 years old female with history of perirectal abscess last month incision and drainage was done by Dr. Hughes. Patient presented to the ER stating that her pain is worse and she is having more discharge coming out. Patient stated that her symptoms improved initially after the surgery but now for the last few days and became worse with more discharge and pain. Patient denied any fever or chills. No nausea or vomiting. I discussed the patient is Dr. Hughes, she advised to admit the patient to hospitalist for IV antibiotic. I discussed the patient is Dr. Garcia, he agreed to admit the patient to medical service. Critical care attestation.: If time is entered above; I have spent that time in minutes in the direct care of this critically ill patient, excluding procedure time. ED Disposition Clinical Impression: Perirectal abscess Disposition: - OP ADMIT IP TO THIS HOSP Is pt being admited?: Yes Condition: Stable Referrals: JANNA BALLESTEROS MD [Primary Care Provider] - 3-5 Days
[2019-03-16 13:17] LABS: Alanine Aminotransferase 10 units/L (7-56); Albumin 4.5 g/dL (3.9-5); BUN/Creatinine Ratio 10; Blood Urea Nitrogen 6 mg/dL (7-17); Hemolysis Index 0
[2019-03-16] MEDS ORDERED: NACL 0.9% 1000 ML 1,000 ML IV ONE (13:23)
[2019-03-16] MEDS ORDERED: SUBLIMAZE IV ONE ×2 (13:23→14:00)
[2019-03-16] MEDS ORDERED: ZOFRAN IV ONE (13:23)
[2019-03-16 13:49] LABS: Bacteria,Urine 1+ /HPF (Negative); Bilirubin,Urine NEG (Negative); Blood,Urine SM (Negative); Color,Urine Yellow (Yellow); Mucus,Urine FEW /HPF; Protein,Urine <15 mg/dL mg/dL (Negative); Urobilinogen,Urine < 2.0 mg/dL (<2.0)
--- NOTE | 2019-03-16 13:59 | History and Physical Report ---
History of Present Illness Chief complaint: Im hurting History of present illness: 48 YO Female with GERD, HTN, HLD, Osteomyelitis S/P PICC line placement, Perirectal Abscess S/P I&D presents to ED for evaluation. Pt states that she has experienced pain in her rectal area, as well as purulent discharge from the site of her previous perirectal abscess over the past 5 days with worsening symptoms over the past 3 days. Pt states that the pain is 7/10, constant, worse with sitting/movement, relieved with nonmovement. Pt transported to [facility] via private vehicle. Pt seen and evaluated in ED and found to have Perirectal Cellulitis/Abscess, UTI, as well as SIRS. Surgery team consulted in ED. Pt also acknowledges subjective fever, abdominal pain. Pt denies CP, Palpitations, Trauma, BRBPR, Unintentional weight loss, night sweats, or recent ill contacts. Pt evaluated by Surgery team in ED. Pt admitted to medical floor. Wound care consulted in ED. Prior admission on 02/15/19 reviewed. All listed medication reconciled at time of admission. Past History Past Medical History: arthritis, GERD, hypertension, hyperlipidemia, other (Osteomyelitis, [place] rectal abscess) Past Surgical History: hysterectomy, Other (Left Leg, Pelvis surgery) Social history: , lives with family. denies: smoking, alcohol abuse, prescription drug abuse, IV drug use Family history: denies: no significant family history, CAD, cancer, diabetes Medications and Allergies Allergies Allergy/AdvReac Type Severity Reaction Status Date / Time aspirin Allergy Swelling Verified 03/16/19 11:19 hydroxyzine HCl Allergy Anaphylaxis Verified 03/16/19 11:19 [From Vistaril] hydroxyzine pamoate Allergy Anaphylaxis Verified 03/16/19 11:19 [From Vistaril] ketorolac tromethamine Allergy Swelling Verified 03/16/19 11:19 [From Toradol] Penicillins Allergy Anaphylaxis Verified 03/16/19 11:19 tramadol Allergy Shortness Verified 03/16/19 11:19 of Breath vancomycin Allergy Rash Verified 03/16/19 11:19 Home Medications Medication Instructions Recorded Confirmed Last Taken Type Meloxicam [Mobic] 7.5 mg PO DAILY #30 tablet 11/02/18 01/28/19 Unknown Rx Pravastatin [Pravachol] 20 mg PO QHS #30 tablet 11/02/18 01/28/19 Unknown Rx Prednisone [predniSONE 5 mg (6-Day 5 mg PO .TAPER #1 tab.ds.pk 11/02/18 01/28/19 Unknown Rx Pack, 21 Tabs)] diphenhydrAMINE [Benadryl CAP] 25 mg PO Q6HR PRN #60 capsule 11/02/18 01/28/19 Unknown Rx tiZANidine [Zanaflex 4mg TAB] 4 mg PO Q8H PRN #90 tablet 11/02/18 01/28/19 Unknown Rx Oxycodone HCl/Acetaminophen 1 each PO Q6HR PRN #60 tablet 11/03/18 01/28/19 Un known Rx [Percocet 10/325 mg] Pantoprazole [Protonix TAB] 40 mg PO QDAY #30 tablet 11/18/18 01/28/19 Unknown Rx Linezolid [Zyvox] 600 mg PO BID #26 tablet 11/29/18 01/28/19 Unknown Rx HYDROcodone/APAP 5-325 [[place] 1 - 2 each PO Q6HR PRN #14 tablet 01/28/19 Unknown Rx 5/325] Promethazine [Phenergan] 25 mg PO Q6HR PRN #20 tab 01/28/19 Unknown Rx levoFLOXacin [Levaquin] 750 mg PO QDAY #10 tablet 01/28/19 Unknown Rx metroNIDAZOLE [Flagyl] 500 mg PO Q8HR #30 tablet 01/28/19 Unknown Rx HYDROcodone/APAP 5-325 [[place] 1 each PO Q6HR PRN #12 tablet 03/10/19 Unknown Rx 5/325] Active Meds: Active Medications Fentanyl (Sublimaze) 50 mcg IV ONCE ONE Stop: 03/16/19 14:01 Sodium Chloride (Nacl 0.9% 1000 Ml) 1,000 mls @ 999 mls/hr IV BOLUS ONE Stop: 03/16/19 14:23 Last Admin: 03/16/19 13:47 Dose: 999 mls/hr Documented by: Linezolid (Zyvox 600mg/300ml) 600 mg in 300 mls @ 300 mls/hr IV Q12HR JASON; Protocol Review of Systems Constitutional: fever, no weight loss, no weight gain, no anorexia, no fatigue, no weakness Ears, nose, mouth and throat: no ear pain, no ear discharge, no tinnitis, no decreased hearing, no nasal congestion, no nasal discharge Breasts: no change in shape, no swelling, no mass Cardiovascular: no chest pain, no orthopnea, no palpitations, no rapid/irregular heart beat, no edema Respiratory: no cough, no cough with sputum, no excessive sputum, no hemoptysis, no shortness of breath Gastrointestinal: no nausea, no vomiting, no diarrhea Genitourinary Female: no pelvic pain, no flank pain, no menorrhagia, no dysuria, no urinary frequency, no urgency Rectal: no pain, no incontinence, no bleeding Musculoskeletal: no neck stiffness, no neck pain, no shooting arm pain, no arm numbness/tingling, no low back pain Integumentary: no rash, no pruritis, no redness, no sores, no wounds Neurological: no transient paralysis, no paralysis, no weakness, no numbness, no tingling, no seizures Psychiatric: no anxiety, no memory loss, no change in sleep habits, no sleep disturbances, no insomnia, no hypersomnia Endocrine: no heat intolerance, no excessive thirst, no polydipsia, no polyuria, no excessive sweating Hematologic/Lymphatic: no easy bruising, no easy bleeding, no lymphadenopathy, no lymphedema Allergic/Immunologic: no urticaria, no allergic rhinitis, no persistent infections, no anaphylaxis Exam - Constitutional Vitals: Temp Pulse Resp BP Pulse Ox 98.4 F 119 H 18 142/96 97 03/16/19 11:40 03/16/19 11:40 03/16/19 11:40 03/16/19 11:40 03/16/19 11:40 General appearance: Present: mild distress - EENT Eyes: Present: PERRL ENT: hearing intact, clear oral mucosa - Neck Neck: Present: supple, normal ROM - Respiratory Respiratory effort: normal Respiratory: bilateral: CTA - Cardiovascular Heart Sounds: Present: S1 & S2. Absent: rub, click - Extremities Extremities: pulses symmetrical, No edema Peripheral Pulses: within normal limits - Abdominal General gastrointestinal: Present: soft, non-tender, non-distended, normal bowel sounds Female genitourinary: Present: normal - Integumentary Integumentary: Present: warm, dry, erythema - Musculoskeletal Musculoskeletal: gait normal, strength equal bilaterally - Psychiatric Psychiatric: appropriate mood/affect, intact judgment & insight - Neurologic Neurologic: CNII-XII intact, moves all extremities Results - Labs CBC & Chem 7: 03/16/19 12:26 03/16/19 12:26 Labs: Abnormal lab results 03/16/19 03/16/19 03/16/19 Range/Units 12:26 12:26 13:03 WBC 11.2 H (4.5-11.0) K/mm3 RDW 15.6 H (13.2-15.2) % Plt Count 533 H (140-440) K/mm3 Seg Neutrophils % 78.8 H (40.0-70.0) % Seg Neutrophils # 8.8 H (1.8-7.7) K/mm3 BUN 6 L (7-17) mg/dL Creatinine 0.6 L (0.7-1.2) mg/dL Total Protein 8.3 H (6.3-8.2) g/dL Urine WBC (Auto) 34.0 H (0.0-6.0) /HPF Assessment and Plan - Patient Problems (1) Perirectal abscess Current Visit: Yes Status: Acute Plan to address problem: IV antibiotic therpay, surgery consulted in ED, pain control, supportive care, serial surgical exam, (2) UTI (urinary tract infection) Current Visit: Yes Status: Acute Qualifiers: Encounter type: initial encounter Plan to address problem: IV antibiotic therapy, CBC, CMP, URinalysis, (3) SIRS (systemic inflammatory response syndrome) Current Visit: Yes Status: Acute Plan to address problem: IV antibiotic therapy, IVF resuscitation therapy, CBC, CMP (4) HTN (hypertension) Current Visit: Yes Status: Acute Qualifiers: Hypertension type: essential hypertension Qualified Code(s): I10 - Essential (primary) hypertension Plan to address problem: Monitor bp q shift, continue medical management. (5) HLD (hyperlipidemia) Current Visit: Yes Status: Acute Qualifiers: Hyperlipidemia type: mixed hyperlipidemia Qualified Code(s): E78.2 - Mixed hyperlipidemia Plan to address problem: Statin therapy, low cholesterol diet (6) DVT prophylaxis Current Visit: Yes Status: Acute (7) DVT prophylaxis Current Visit: No Status: Acute
[2019-03-16] MEDS ORDERED: TYLENOL PO PRN (14:01)
[2019-03-16] MEDS ORDERED: ZOFRAN IV PRN (14:01)
[2019-03-16] MEDS ORDERED: SODIUM CHLORIDE FLUSH SYRINGE 10 ML IV PRN (14:01)
[2019-03-16] MEDS ORDERED: SILVER NITRATE TP ONE ×2 (14:21→14:30)
[2019-03-16] MEDS ORDERED: XYLOCAINE TOPICAL 4% TP ONE (14:21)
[2019-03-16] MEDS ORDERED: MORPHINE IV PRN (14:33)
--- NOTE | 2019-03-16 14:36 | Consultation ---
History of Present Illness Consult date: 03/16/19 Chief complaint: wound pain - History of present illness History of present illness: 48 yo F with hx of chronic low back pain, perirectal abscess who underwent incision and drainage of perirectal abscess on 02/16/19. She did not follow up as outpatient and left AMA from hospital due to personal reasons and because she was not being given IV pain medications. She presents back to the ER with multiple complaints. She states she has noticed foul smelling drainage from perirectal wound since the last 2 weeks. She c/o pain in that area. She c/o subjective fevers, pain in the entire body, generalized abdominal pain, n/v (nonbloody/nonbilious). She has never had abdominal pain like this before. She was scheduled for follow up in wound care center but did not show up. She states she did not follow up due to personal reasons and that she was planning on going to [place]. Past History Past Medical History: other (chronic back pain) Past Surgical History: Other (incision and drainage of perirectal abscess) Social history: no significant social history Family history: no significant family history Medications and Allergies Allergies Allergy/AdvReac Type Severity Reaction Status Date / Time aspirin Allergy Swelling Verified 03/16/19 11:19 hydroxyzine HCl Allergy Anaphylaxis Verified 03/16/19 11:19 [From Vistaril] hydroxyzine pamoate Allergy Anaphylaxis Verified 03/16/19 11:19 [From Vistaril] ketorolac tromethamine Allergy Swelling Verified 03/16/19 11:19 [From Toradol] Penicillins Allergy Anaphylaxis Verified 03/16/19 11:19 tramadol Allergy Shortness Verified 03/16/19 11:19 of Breath vancomycin Allergy Rash Verified 03/16/19 11:19 Home Medications Medication Instructions Recorded Confirmed Last Taken Type Meloxicam [Mobic] 7.5 mg PO DAILY #30 tablet 11/02/18 01/28/19 Unknown Rx Pravastatin [Pravachol] 20 mg PO QHS #30 tablet 11/02/18 01/28/19 Unknown Rx Prednisone [predniSONE 5 mg (6-Day 5 mg PO .TAPER #1 tab.ds.pk 11/02/18 01/28/19 Unknown Rx Pack, 21 Tabs)] diphenhydrAMINE [Benadryl CAP] 25 mg PO Q6HR PRN #60 capsule 11/02/18 01/28/19 Unknown Rx tiZANidine [Zanaflex 4mg TAB] 4 mg PO Q8H PRN #90 tablet 11/02/18 01/28/19 Unknown Rx Oxycodone HCl/Acetaminophen 1 each PO Q6HR PRN #60 tablet 11/03/18 01/28/19 Unknown Rx [Percocet 10/325 mg] Pantoprazole [Protonix TAB] 40 mg PO QDAY #30 tablet 11/18/18 01/28/19 Unknown Rx Linezolid [Zyvox] 600 mg PO BID #26 tablet 11/29/18 01/28/19 Unknown Rx HYDROcodone/APAP 5-325 [[place] 1 - 2 each PO Q6HR PRN #14 tablet 01/28/19 Unknown Rx 5/325] Promethazine [Phenergan] 25 mg PO Q6HR PRN #20 tab 01/28/19 Unknown Rx levoFLOXacin [Levaquin] 750 mg PO QDAY #10 tablet 01/28/19 Unknown Rx metroNIDAZOLE [Flagyl] 500 mg PO Q8HR #30 tablet 01/28/19 Unknown Rx HYDROcodone/APAP 5-325 [[place] 1 each PO Q6HR PRN #12 tablet 03/10/19 Unknown Rx 5/325] Active Meds: Active Medications Acetaminophen (Tylenol) 650 mg PO Q4H PRN PRN Reason: Pain MILD(1-3)/Fever >100.5/BURCIAGA Linezolid (Zyvox 600mg/300ml) 600 mg in 300 mls @ 300 mls/hr IV Q12HR JASON; Protocol Morphine Sulfate (Morphine) 2 mg IV Q4H PRN PRN Reason: Pain, Moderate (4-6) Ondansetron HCl (Zofran) 4 mg IV Q8H PRN PRN Reason: Nausea And Vomiting Oxycodone/Acetaminophen (Percocet 5/325) 1 tab PO Q6H PRN PRN Reason: Pain, Moderate (4-6) Sodium Chloride (Sodium Chloride Flush Syringe 10 Ml) 10 ml IV BID JASON Sodium Chloride (Sodium Chloride Flush Syringe 10 Ml) 10 ml IV PRN PRN PRN Reason: LINE FLUSH Review of Systems All systems: negative (10 pt ROS performed and negative except for that listed in HPI) Exam Vital Signs Temp Pulse Resp BP Pulse Ox 98.4 F 119 H 18 142/96 97 03/16/19 11:40 03/16/19 11:40 03/16/19 11:40 03/16/19 11:40 03/16/19 11:40 Narrative exam: Gen: AAOx3. NAD CV: s1, S2+ resp: even and unlabored Abd: soft, ND, mild diffuse TTP. no r/r/g Ext: no c.c.e Rectal: perirectal exam reveals wound of right inner gluteal region with some hypergranulation tissue. No drainage. Wound bed is pink and clean. Tunneling to about 2 cm inferiorly. Results - Labs 03/16/19 12:26 03/16/19 12:26 Abnormal lab results 03/16/19 03/16/19 03/16/19 Range/Units 12:26 12:26 13:03 WBC 11.2 H (4.5-11.0) K/mm3 RDW 15.6 H (13.2-15.2) % Plt Count 533 H (140-440) K/mm3 Seg Neutrophils % 78.8 H (40.0-70.0) % Seg Neutrophils # 8.8 H (1.8-7.7) K/mm3 BUN 6 L (7-17) mg/dL Creatinine 0.6 L (0.7-1.2) mg/dL Total Protein 8.3 H (6.3-8.2) g/dL Urine WBC (Auto) 34.0 H (0.0-6.0) /HPF Diabetes panel 03/16/19 Range/Units 12:26 Sodium 141 (137-145) mmol/L Potassium 4.4 (3.6-5.0) mmol/L Chloride 102.2 (98-107) mmol/L Carbon Dioxide 27 (22-30) mmol/L BUN 6 L (7-17) mg/dL Creatinine 0.6 L (0.7-1.2) mg/dL Glucose 100 (65-100) mg/dL Calcium 10.0 (8.4-10.2) mg/dL AST 13 (5-40) units/L ALT 10 (7-56) units/L Alkaline Phosphatase 88 (35-129) units/L Total Protein 8.3 H (6.3-8.2) g/dL Albumin 4.5 (3.9-5) g/dL Calcium panel 03/16/19 Range/Units 12:26 Calcium 10.0 (8.4-10.2) mg/dL Albumin 4.5 (3.9-5) g/dL Pituitary panel 03/16/19 Range/Units 12:26 Sodium 141 (137-145) mmol/L Potassium 4.4 (3.6-5.0) mmol/L Chloride 102.2 (98-107) mmol/L Carbon Dioxide 27 (22-30) mmol/L BUN 6 L (7-17) mg/dL Creatinine 0.6 L (0.7-1.2) mg/dL Glucose 100 (65-100) mg/dL Calcium 10.0 (8.4-10.2) mg/dL Adrenal panel 03/16/19 Range/Units 12:26 Sodium 141 (137-145) mmol/L Potassium 4.4 (3.6-5.0) mmol/L Chloride 102.2 (98-107) mmol/L Carbon Dioxide 27 (22-30) mmol/L BUN 6 L (7-17) mg/dL Creatinine 0.6 L (0.7-1.2) mg/dL Glucose 100 (65-100) mg/dL Calcium 10.0 (8.4-10.2) mg/dL Total Bilirubin 0.30 (0.1-1.2) mg/dL AST 13 (5-40) units/L ALT 10 (7-56) units/L Alkaline Phosphatase 88 (35-129) units/L Total Protein 8.3 H (6.3-8.2) g/dL Albumin 4.5 (3.9-5) g/dL Assessment and Plan 48 yo F with perirectal wound Plan; 1. Admitted to hospitalist 2. antibiotics 3. cultures 4. wound care consult 5. PO pain control ONLY. 6. repeat labs in am 7. sitz baths daily 8. KUB for abdominal pain If WBC improved tomorrow, recommend discharge with follow up in wound care [facility] [place]. Stressed importance of follow up with patient in order to ensure wound healing. She understands Thank you, please call with questions.
[2019-03-16] MEDS: ZYVOX 600MG/300ML 600 MG/300 ML BAG IV SCH ×2 (14:38→21:56)
[2019-03-16] MEDS: PERCOCET 5/325 PO PRN ×2 (15:10→22:41)
--- NOTE | 2019-03-16 15:13 | XRay Report ---
PROCEDURE: XR ABDOMEN 1V AP TECHNIQUE: Abdominal radiograph, single view. HISTORY: n/v COMPARISONS: None . FINDINGS: Nonobstructive bowel gas pattern. Injection granulomas overlie the right pelvis. No abnormal calcific ations. IMPRESSION: Unremarkable bowel gas pattern. This document is electronically signed by Savannah Samano MD., March 16 2019 03:11:06 PM ET
[2019-03-16] MEDS: SODIUM CHLORIDE FLUSH SYRINGE 10 ML IV SCH (21:57)
[2019-03-16] MEDS ORDERED: LOVENOX SUB-Q SCH (22:00)
[2019-03-16] MEDS ORDERED: PERCOCET 5/325 PO PRN (22:41)
[2019-03-17 05:55] LABS: Basophils # (Auto) 0.1 K/mm3 (0.0-0.1); Basophils % (Auto) 0.8 % (0.0-1.8); Eosinophils # (Auto) 0.1 K/mm3 (0.0-0.4); Eosinophils % (Auto) 0.8 % (0.0-4.3); Hematocrit 35.3 % (30.3-42.9); Hemoglobin 11.9 gm/dl (10.1-14.3); Lymphocytes # (Auto) 2.4 K/mm3 (1.2-5.4); Lymphocytes % (Auto) 26.7 % (13.4-35.0); Mean Corpuscular HGB Conc 34 % (30-34); Mean Corpuscular Volume 87 fl (79-97); Monocytes # (Auto) 0.6 K/mm3 (0.0-0.8); Monocytes % (Auto) 6.5 % (0.0-7.3); Platelet Count 473 K/mm3 (140-440); Red Blood Count 4.07 M/mm3 (3.65-5.03); Red Cell Distribution Width 14.9 % (13.2-15.2)
[2019-03-17 06:26] LABS: Alanine Aminotransferase 9 units/L (7-56); Albumin 4.1 g/dL (3.9-5); BUN/Creatinine Ratio 12; Blood Urea Nitrogen 7 mg/dL (7-17); Calcium 9.5 mg/dL (8.4-10.2); Hemolysis Index 7
[2019-03-17] MEDS: ZYVOX 600MG/300ML 600 MG/300 ML BAG IV SCH (09:54)
[2019-03-17] MEDS: SODIUM CHLORIDE FLUSH SYRINGE 10 ML IV SCH (09:55)
[2019-03-17] MEDS ORDERED: ROCEPHIN/NS 1 GM/50 ML 1 GM/50 ML BAG IV SCH (10:00)
[2019-03-17] MEDS ORDERED: DILAUDID IV ONE (13:32)
--- NOTE | 2019-03-17 15:25 | Discharge Summary ---
Providers - Providers Date of Admission: 03/16/19 15:37 Date of discharge: 03/17/19 Attending physician: VIOLETTA JETER 03/16/19 13:46 Consult to Physician [CONS] Stat Comment: DR MATT OWUSU W/DR STOKES @[id number] Consulting Provider: VIANNEY STOKES Physician Instructions: Reason For Exam: perirectal abscess 03/16/19 14:28 Consult to Wound/ET Nurse [CONS] Routine Reason For Exam: wound eval Primary care physician: [facility], [facility] Hospitalization Reason for admission: perirectal pain and drainage Condition: Stable Pertinent studies: Abdomen XRY: Normal bowel gas pattern. Hospital course: 48 yo F with hx of chronic low back pain, perirectal abscess who underwent incision and drainage of perirectal abscess on 02/16/19, did not follow up as outpatient and left AMA from hospital due to personal reasons presents back to the ER with multiple complaints. She states she has noticed foul smelling drainage from perirectal wound since the last 2 weeks. She c/o pain in that area, subjective fevers, pain in the entire body, generalized abdominal pain, n/v (nonbloody/nonbilious). She has never had abdominal pain like this before. She was scheduled for follow up in wound care center but did not show up. She states she did not follow up due to personal reasons and that she was planning on going to [place]. She was admitted, placed on antibiotics, wound care and GS consulted. KUB for abdominal pain was unremarkable, tolerated diet without any nausea and vomiting since admission. General surgery recommended to continue antibiotics, outpatient wound care follow-up, sitz bath of daily. Her WBC count normalized by next day, patient was encouraged to be compliant with the medications and outpatient wound care clinic follow-up in order to ensure wound healing. She understands and then she was discharged home in stable condition with outpatient follow-up. DISCHARGE DIAGNOSIS: (1) Perirectal abscess (2) UTI (urinary tract infection) (3) SIRS (systemic inflammatory response syndrome (4) HTN (hypertension) (5) HLD (hyperlipidemia) (6) DVT prophylaxis Disposition: TO HOME OR SELFCARE Time spent for discharge: 34 minutes Core Measure Documentation - Palliative Care Palliative Care/ Comfort Measures: Not Applicable - Core Measures Any of the following diagnoses?: none Exam - Physical Exam Narrative exam: Gen: AAOx3. NAD CV: s1, S2+Ve Resp: even and unlabored Abd: soft, ND, mild diffuse TTP. no r/r/g Ext: no edema Rectal: perirectal exam reveals wound of right inner gluteal region with dressing. No drainage. - Constitutional Vitals: Temp Pulse Resp BP Pulse Ox 98.4 F 99 H 18 105/68 97 03/17/19 07:46 03/17/19 07:46 03/17/19 07:46 03/17/19 07:46 03/17/19 14:08 Plan Activity: advance as tolerated Weight Bearing Status: Weight Bear as Tolerated Diet: regular Follow up with: VIANNEY STOKES DO [Staff Physician] - 7 [facility] - 3-5 Days Prescriptions: HYDROcodone/APAP 5-325 [[place] 5-325 mg TAB] 1 - 2 each PO Q6HR PRN #7 tablet PRN Reason: Pain Linezolid [Zyvox] 600 mg PO BID #14 tablet
[2019-03-17 18:09] VITALS: BP 133/81
== END 2019-03-17 17:45 | disposition home or self-care (01) ==
LOC: ED 11:16 → 3B-SURG 15:37 → INTOOBSV 15:37
PROVIDERS: ADMIT Internal Medicine; ATTEND Internal Medicine
DX: K61.1 Rectal abscess (principal); N39.0 Urinary tract infection, site not specified; R65.10 Systemic inflammatory response syndrome (SIRS) of non-infectious origin without acute organ dysfunction; I10 Essential (primary) hypertension; E78.5 Hyperlipidemia, unspecified; K21.9 Gastro-esophageal reflux disease without esophagitis; M86.9 Osteomyelitis, unspecified; M19.90 Unspecified osteoarthritis, unspecified site; R11.2 Nausea with vomiting, unspecified; M54.5 Low back pain; G89.29 Other chronic pain; Z90.710 Acquired absence of both cervix and uterus
CPT/HCPCS: 36415; 74018; 80053; 81001; 82140; 85025; 87076; 87086; 87116; 87186; 96361; 96365; 96366; 96372; 96375; 99284; G0378; J1170; J1650; J2020; J2270; J2405; J3010; J7030

== ENCOUNTER 2019-03-19 17:46 | Emergency (ER) | payer MEDICAID ==
--- NOTE | 2019-03-19 17:54 | Emergency Department Report ---
Blank Doc - Documentation Documentation: This is a 48-year-old female that presents with abscess to buttock area. This initial assessment/diagnostic orders/clinical plan/treatment(s) is/are subject to change based on patient's health status, clinical progression and re- assessment by fellow clinical providers in the ED. Further treatment and workup at subsequent clinical providers discretion. Patient/guardians urged not to elope from the ED as their condition may be serious if not clinically assessed and managed. Initial orders include: 1- Patient sent to [facility] for further evaluation and treatment
[2019-03-19 18:34] LABS: Hemoglobin 12.4 gm/dl (10.1-14.3); Mean Corpuscular HGB Conc 35 % (30-34); Mean Corpuscular Volume 86 fl (79-97); Platelet Count 493 K/mm3 (140-440); Red Blood Count 4.07 M/mm3 (3.65-5.03)
[2019-03-19 19:00] LABS: Alanine Aminotransferase 11 units/L (7-56); Albumin 4.6 g/dL (3.9-5); BUN/Creatinine Ratio 20; Blood Urea Nitrogen 12 mg/dL (7-17); Calcium 9.9 mg/dL (8.4-10.2); Hemolysis Index 3
[2019-03-19] MEDS ORDERED: CLEOCIN IM STA (19:51)
--- NOTE | 2019-03-19 19:59 | Emergency Department Report ---
ED General Adult HPI - General Chief complaint: Skin/Abscess/Foreign Body Stated complaint: ABCESS Time Seen by Provider: 03/19/19 17:53 Source: patient Mode of arrival: Ambulatory Limitations: No Limitations - History of Present Illness Initial comments: 48-year-old female symptoms department for reevaluation of a gluteal abscess/cellulitis, which was drained about 3 days ago. She was admitted to the hospital for a gluteal abscess and reports having a surgical incision. The wound was packed and she was discharged home as she reports with no antibodies. Packing was removed. She states since that time she's been having continuous pus, discharge, pain and redness. She has some pain with to her chest when she takes deep breaths and also some fever sensation. No nausea, vomiting. No palpitations. No presyncope. No dysuria, no painful bowel movements. -: days(s) Radiation: non-radiation Quality: other (pain is a tearing throbbing) Consistency: constant Improves with: none Worsens with: movement Associated Symptoms: fever/chills. denies: confusion, chest pain, diaphoresis, loss of appetite, nausea/vomiting, syncope, weakness - Related Data Previous Rx's Medication Instructions Recorded Last Taken Type Pravastatin [Pravachol] 20 mg PO QHS #30 tablet 11/02/18 Unknown Rx Pantoprazole [Protonix TAB] 40 mg PO QDAY #30 tablet 11/18/18 Unknown Rx HYDROcodone/APAP 5-325 [[place] 1 - 2 each PO Q6HR PRN #7 tablet 03/17/19 Unknown Rx 5-325 mg TAB] Linezolid [Zyvox] 600 mg PO BID #14 tablet 03/17/19 Unknown Rx Chlorhexidine Gluconate [Hibiclens] 10 ml TP BID #240 liquid 03/19/19 Unknown Rx Clindamycin [Clindamycin CAP] 300 mg PO Q6H #28 capsule 03/19/19 Unknown Rx Mupirocin [Bactroban 2%] 15 applic TP TID #15 gm 03/19/19 Unknown Rx Allergies Allergy/AdvReac Type Severity Reaction Status Date / Time aspirin Allergy Swelling Verified 03/16/19 11:19 hydroxyzine HCl Allergy Anaphylaxis Verified 03/16/19 11:19 [From Vistaril] hydroxyzine pamoate Allergy Anaphylaxis Verified 03/16/19 11:19 [From Vistaril] ketorolac tromethamine Allergy Swelling Verified 03/16/19 11:19 [From Toradol] Penicillins Allergy Anaphylaxis Verified 03/16/19 11:19 tramadol Allergy Shortness Verified 03/16/19 11:19 of Breath vancomycin Allergy Rash Verified 03/16/19 11:19 ED Review of Systems ROS: Stated complaint: ABCESS Other details as noted in HPI ED Past Medical Hx - Past Medical History Hx Hypertension: Yes Hx Heart Attack/AMI: No Hx Congestive Heart Failure: No Hx Diabetes: No Hx Deep Vein Thrombosis: No Hx Liver Disease: No Hx Renal Disease: No Hx Arthritis: Yes Hx Seizures: No Hx Asthma: No Hx COPD: No Hx HIV: No Additional medical history: chronic pain, hypercholesterolemia, sepsis in 2018, infected hardware in LLL removed 11/2018. spinal stenosis - Surgical History Hx Pacemaker: No Hx Internal Defibrillator: No Additional Surgical History: L leg fx repair. hyst. pelvic fx repair. Pt became septic due to infection caused by metal in LLL: removed early 2018 - Social History Smoking Status: Never Smoker Substance Use Type: None - Medications Home Medications: Home Medications Medication Instructions Recorded Confirmed Last Taken Type Pravastatin [Pravachol] 20 mg PO QHS #30 tablet 11/02/18 01/28/19 Unknown Rx Pantoprazole [Protonix TAB] 40 mg PO QDAY #30 tablet 11/18/18 01/28/19 Unknown Rx HYDROcodone/APAP 5-325 [[place] 1 - 2 each PO Q6HR PRN #7 tablet 03/17/19 Unknown Rx 5-325 mg TAB] Linezolid [Zyvox] 600 mg PO BID #14 tablet 03/17/19 Unknown Rx Chlorhexidine Gluconate [Hibiclens] 10 ml TP BID #240 liquid 03/19/19 Unknown Rx Clindamycin [Clindamycin CAP] 300 mg PO Q6H #28 capsule 03/19/19 Unknown Rx Mupirocin [Bactroban 2%] 15 applic TP TID #15 gm 03/19/19 Unknown Rx ED Physical Exam - General Limitations: No Limitations General appearance: alert, in no apparent distress - Head Head exam: Present: atraumatic, normocephalic - Eye Eye exam: Present: normal appearance - ENT ENT exam: Present: mucous membranes moist - Neck Neck exam: Present: normal inspection - Respiratory Respiratory exam: Present: normal lung sounds bilaterally. Absent: respiratory distress, wheezes, rales - Cardiovascular Cardiovascular Exam: Present: regular rate, normal rhythm. Absent: systolic murmur, diastolic murmur, rubs, gallop - GI/Abdominal GI/Abdominal exam: Present: soft, normal bowel sounds - Extremities Exam Extremities exam: Present: normal inspection - Back Exam Back exam: Present: normal inspection - Neurological Exam Neurological exam: Present: alert, oriented X3 - Psychiatric Psychiatric exam: Present: normal affect, normal mood - Skin Skin exam: Present: warm, dry, intact, normal color, other (there is some cellulitis that to the gluteal cleft on the left and right left and and right region. With minimal swelling. Tenderness to palpation. Cellulitis ranges at about 5 cm. Minimal pus discharge of yellowish content.). Absent: rash ED Course Vital Signs 03/19/19 03/19/19 17:53 20:21 Temperature 98.2 F Pulse Rate 119 H 94 H Respiratory 20 20 Rate Blood Pressure 131/97 Blood Pressure 122/85 [Right] O2 Sat by Pulse 97 97 Oximetry ED Medical Decision Making - Lab Data Result diagrams: 03/19/19 18:15 03/19/19 18:10 - Medical Decision Making 48-year-old female status post incision and drainage of a gluteal abscess. With some recurrent lingering discharge. On no anabiotic set home. Wound continues no antimicrobials so having normal wound management has not yet followed up with her primary care provider for reevaluation of the wound either. There is some mild cellulitis noted at the site of the incision. No significant reaccumulation of abscess appreciated. Abscess not invading the rectal rim. She is alert and oriented a febrile today. Antibodies were provided and she will be discharged on antibiotics as well. Critical care attestation.: If time is entered above; I have spent that time in minutes in the direct care of this critically ill patient, excluding procedure time. ED Disposition Clinical Impression: Cellulitis, Cellulitis and abscess of buttock Disposition: - TO HOME OR SELFCARE Is pt being admited?: No Does the pt Need Aspirin: No Condition: Stable Instructions: Cellulitis (ED) Prescriptions: Mupirocin [Bactroban 2%] 15 applic TP TID #15 gm Clindamycin [Clindamycin CAP] 300 mg PO Q6H #28 capsule Chlorhexidine Gluconate [Hibiclens] 10 ml TP BID #240 liquid Referrals: LUCIEN MORGAN MD [Primary Care Provider] - 2-3 Days (Please follow-up with your Dr. Morgan for wound reevaluation in the next 48 hours)
[2019-03-19 20:22] VITALS: BP 122/85
--- NOTE | 2019-03-19 20:27 | XRay Report ---
PROCEDURE: XR CHEST ROUTINE 2V TECHNIQUE: PA and lateral chest radiographs were obtained. HISTORY: cough and lower chest pain COMPARISONS: October 31, 2018. FINDINGS: Heart: Normal. Mediastinum/Vessels: Normal. Lungs/Pleural space: Normal. Bony thorax: No acute osseous abnormality. IMPRESSION: Normal examination. This document is electronically signed by Esvin Carolina MD., March 19 2019 08:25:44 PM ET
[2019-03-19] MEDS ORDERED: PERCOCET 5/325 PO ONE (20:35)
[2019-03-19 20:36] LABS: HCG Qualitative,Urine Negative (Negative)
[2019-03-19] MEDS ORDERED: PERCOCET 5/325 ONE (20:36)
[2019-03-19 20:38] LABS: Bacteria,Urine 1+ /HPF (Negative); Bilirubin,Urine NEG (Negative); Blood,Urine LG (Negative); Color,Urine Yellow (Yellow); Mucus,Urine FEW /HPF; Protein,Urine <15 mg/dL mg/dL (Negative); Urobilinogen,Urine < 2.0 mg/dL (<2.0)
== END 2019-03-19 22:15 | disposition home or self-care (01) ==
LOC: ED 17:46
DX: L02.31 Cutaneous abscess of buttock (principal); E78.00 Pure hypercholesterolemia, unspecified; I10 Essential (primary) hypertension; M19.90 Unspecified osteoarthritis, unspecified site; G89.29 Other chronic pain; Z98.890 Other specified postprocedural states; Z88.6 Allergy status to analgesic agent; Z88.8 Allergy status to other drugs, medicaments and biological substances; Z88.0 Allergy status to penicillin; Z88.5 Allergy status to narcotic agent; Z79.899 Other long term (current) drug therapy
CPT/HCPCS: 36415; 71046; 80053; 81001; 81025; 82140; 85027; 87040; 87086; 96372

== ENCOUNTER 2019-03-26 07:52 | Outpatient (CLI) | payer MEDICAID ==
[2019-03-26] MEDS ORDERED: XYLOCAINE TOPICAL 4% TP ONE (07:59)
== END 2019-03-26 07:53 | disposition home or self-care (01) ==
LOC: WOUND 07:52
PROVIDERS: ATTEND Surgery
DX: L02.31 Cutaneous abscess of buttock (principal); E78.5 Hyperlipidemia, unspecified; M19.90 Unspecified osteoarthritis, unspecified site; Z87.891 Personal history of nicotine dependence
CPT/HCPCS: 11042; G0463; 99214

== ENCOUNTER 2019-03-31 14:22 | Emergency (ER) | payer MEDICAID ==
--- NOTE | 2019-03-31 15:34 | Emergency Department Report ---
Blank Doc - Documentation Documentation: This is a 48-year-old female that presents with pain in the abscess area that was surgically lanced. Stated has some purulent drainage. Patient is tachy in traige. No fever noted. This initial assessment/diagnostic orders/clinical plan/treatment(s) is/are subject to change based on patient's health status, clinical progression and re- assessment by fellow clinical providers in the ED. Further treatment and workup at subsequent clinical providers discretion. Patient/guardians urged not to elope from the ED as their condition may be serious if not clinically assessed and managed. Initial orders include: 1- Patient sent to MAIN for further evaluation and treatment 2- will order labs
[2019-03-31 16:22] LABS: BUN/Creatinine Ratio 16; Blood Urea Nitrogen 8 mg/dL (7-17); Calcium 9.2 mg/dL (8.4-10.2); Hemolysis Index 25
[2019-03-31 16:26] LABS: Basophils % (Auto) 0.4 % (0.0-1.8); Eosinophils # (Auto) 0.1 K/mm3 (0.0-0.4); Eosinophils % (Auto) 0.9 % (0.0-4.3); Hematocrit 35.5 % (30.3-42.9); Lymphocytes # (Auto) 1.9 K/mm3 (1.2-5.4); Lymphocytes % (Auto) 18.8 % (13.4-35.0); Mean Corpuscular HGB Conc 34 % (30-34); Mean Corpuscular Volume 87 fl (79-97); Monocytes # (Auto) 0.9 K/mm3 (0.0-0.8); Monocytes % (Auto) 9.1 % (0.0-7.3); Platelet Count 441 K/mm3 (140-440); Red Cell Distribution Width 15.4 % (13.2-15.2)
[2019-03-31] MEDS ORDERED: CLEOCIN 900 MG/50 mL 900 MG/50 ML BAG IV ONE (17:58)
[2019-03-31] MEDS ORDERED: ZOFRAN IV ONE ×2 (17:58→22:43)
[2019-03-31] MEDS ORDERED: MORPHINE IV ONE ×2 (17:59→22:43)
--- NOTE | 2019-03-31 20:15 | Emergency Department Report ---
- General Chief Complaint: Skin/Abscess/Foreign Body Stated Complaint: V/N BACK PAIN Time Seen by Provider: 03/31/19 15:31 Source: patient Mode of arrival: Ambulatory Limitations: No Limitations - History of Present Illness Initial Comments: This is a 48-year-old female status post pilonidal abscess surgical I&D 2 months ago patient is patient had been complaining for current therapy , she now presents with pain in the abscess area that was surgically lanced. Stated has some purulent drainage. Was advised b wound clinic to report to ed for evaluation , pt denies fever or chills no n/v , states wound pain 05/10 , advises unable to assist with wound care, pt denies hx of diabetes. Onset/Timin -: month(s) Location: other (buttocks ) Place: home Patient Tetanus UTD: Yes Associated Symptoms: pain, other (purulent drainage ) - Related Data Previous Rx's Medication Instructions Recorded Last Taken Type Pravastatin [Pravachol] 20 mg PO QHS #30 tablet 11/02/18 Unknown Rx Pantoprazole [Protonix TAB] 40 mg PO QDAY #30 tablet 11/18/18 Unknown Rx HYDROcodone/APAP 5-325 [[place] 1 - 2 each PO Q6HR PRN #7 tablet 03/17/19 Unknown Rx 5-325 mg TAB] Linezolid [Zyvox] 600 mg PO BID #14 tablet 03/17/19 Unknown Rx Chlorhexidine Gluconate [Hibiclens] 10 ml TP BID #240 liquid 03/19/19 Unknown Rx Clindamycin [Clindamycin CAP] 300 mg PO Q6H #28 capsule 03/19/19 Unknown Rx Mupirocin [Bactroban 2%] 15 applic TP TID #15 gm 03/19/19 Unknown Rx HYDROcodone/APAP 5-325 [[place] 1 each PO Q6HR PRN #12 tablet 03/31/19 Unknown Rx 5-325 mg TAB] Allergies Allergy/AdvReac Type Severity Reaction Status Date / Time aspirin Allergy Swelling Verified 03/16/19 11:19 hydroxyzine HCl Allergy Anaphylaxis Verified 03/16/19 11:19 [From Vistaril] hydroxyzine pamoate Allergy Anaphylaxis Verified 03/16/19 11:19 [From Vistaril] ketorolac tromethamine Allergy Swelling Verified 03/16/19 11:19 [From Toradol] Penicillins Allergy Anaphylaxis Verified 03/16/19 11:19 tramadol Allergy Shortness Verified 03/16/19 11:19 of Breath vancomycin Allergy Rash Verified 03/16/19 11:19 ED Review of Systems ROS: Stated complaint: V/N BACK PAIN Other details as noted in HPI Constitutional: malaise. denies: chills, fever Eyes: denies: eye pain, eye discharge, vision change ENT: denies: ear pain, throat pain Respiratory: denies: cough, shortness of breath, wheezing Cardiovascular: denies: chest pain, palpitations Endocrine: no symptoms reported Gastrointestinal: denies: abdominal pain, nausea, diarrhea Genitourinary: denies: urgency, dysuria, discharge Musculoskeletal: denies: back pain, joint swelling, arthralgia Skin: lesions (Abscess buttocks ). denies: rash Neurological: denies: headache, weakness, paresthesias Psychiatric: denies: anxiety, depression Hematological/Lymphatic: denies: easy bleeding, easy bruising ED Past Medical Hx - Past Medical History Previous Medical History?: Yes Hx Hypertension: Yes Hx Heart Attack/AMI: No Hx Congestive Heart Failure: No Hx Diabetes: No Hx Deep Vein Thrombosis: No Hx Liver Disease: No Hx Renal Disease: No Hx Arthritis: Yes Hx Seizures: No Hx Asthma: No Hx COPD: No Hx HIV: No Additional medical history: chronic pain, hypercholesterolemia, sepsis in 2018, infected hardware in LLL removed 11/2018. spinal stenosis - Surgical History Past Surgical History?: Yes Hx Pacemaker: No Hx Internal Defibrillator: No Additional Surgical History: L leg fx repair. hyst. pelvic fx repair. Pt became septic due to infection caused by metal in LLL: removed early 2018 - Social History Smoking Status: Never Smoker Substance Use Type: None - Medications Home Medications: Home Medications Medication Instructions Recorded Confirmed Last Taken Type Pravastatin [Pravachol] 20 mg PO QHS #30 tablet 11/02/18 01/28/19 Unknown Rx Pantoprazole [Protonix TAB] 40 mg PO QDAY #30 tablet 11/18/18 01/28/19 Unknown Rx HYDROcodone/APAP 5-325 [[place] 1 - 2 each PO Q6HR PRN #7 tablet 03/17/19 Unknown Rx 5-325 mg TAB] Linezolid [Zyvox] 600 mg PO BID #14 tablet 03/17/19 Unknown Rx Chlorhexidine Gluconate [Hibiclens] 10 ml TP BID #240 liquid 03/19/19 Unknown Rx Clindamycin [Clindamycin CAP] 300 mg PO Q6H #28 capsule 03/19/19 Unknown Rx Mupirocin [Bactroban 2%] 15 applic TP TID #15 gm 03/19/19 Unknown Rx HYDROcodone/APAP 5-325 [[place] 1 each PO Q6HR PRN #12 tablet 03/31/19 Unknown Rx 5-325 mg TAB] ED Physical Exam - General Limitations: No Limitations General appearance: alert, in no apparent distress - Head Head exam: Present: atraumatic, normocephalic - Eye Eye exam: Present: normal appearance, PERRL, EOMI Pupils: Present: normal accommodation - ENT ENT exam: Present: mucous membranes moist - Neck Neck exam: Present: normal inspection - Respiratory Respiratory exam: Present: normal lung sounds bilaterally, chest wall tenderness. Absent: respiratory distress, wheezes, stridor - Cardiovascular Cardiovascular Exam: Present: regular rate, normal rhythm, normal heart sounds. Absent: systolic murmur, diastolic murmur, rubs, gallop - GI/Abdominal GI/Abdominal exam: Present: soft, normal bowel sounds. Absent: distended, tenderness, bruit, hernia - Rectal Rectal exam: Present: deferred - Extremities Exam Extremities exam: Present: normal inspection, full ROM, normal capillary refill. Absent: tenderness, pedal edema, joint swelling, calf tenderness - Back Exam Back exam: Present: normal inspection, full ROM. Absent: tenderness, CVA tenderness (R), CVA tenderness (L), muscle spasm, rash noted - Neurological Exam Neurological exam: Present: alert, oriented X3, CN II-XII intact, normal gait, reflexes normal - Psychiatric Psychiatric exam: Present: normal affect, normal mood - Skin Skin exam: Present: dry, normal color, other (abscess buttocks 6x7 cm erythem pain purulent drainage, dressing intact ) ED Course Vital Signs 03/31/19 03/31/19 03/31/19 15:29 18:50 21:09 Temperature 98.3 F 99.2 F Pulse Rate 119 H 125 H Respiratory 18 17 17 Rate Blood Pressure 130/89 Blood Pressure 119/75 [Left] O2 Sat by Pulse 98 98 Oximetry 03/31/19 23:19 Temperature Pulse Rate Respiratory 20 Rate Blood Pressure Blood Pressure [Left] O2 Sat by Pulse Oximetry ED Medical Decision Making - Lab Data Result diagrams: 03/31/19 15:35 03/31/19 21:12 Labs 03/31/19 03/31/19 03/31/19 15:35 15:35 16:41 WBC 10.1 RBC 4.10 Hgb 12.0 Hct 35.5 MCV 87 MCH 29 MCHC 34 RDW 15.4 H Plt Count 441 H Lymph % (Auto) 18.8 Andrews % (Auto) 9.1 H Eos % (Auto) 0.9 Baso % (Auto) 0.4 Lymph # 1.9 Andrews # 0.9 H Eos # 0.1 Baso # 0.0 Seg Neutrophils % 70.8 H Seg Neutrophils # 7.1 Sodium 139 Potassium 4.2 Chloride 101.7 Carbon Dioxide 26 Anion Gap 16 BUN 8 Creatinine 0.5 L Estimated GFR > 60 BUN/Creatinine Ratio 16 Glucose 109 H Lactic Acid 0.80 Calcium 9.2 Lipase 45 03/31/19 21:12 WBC RBC Hgb Hct MCV MCH MCHC RDW Plt Count Lymph % (Auto) Andrews % (Auto) Eos % (Auto) Baso % (Auto) Lymph # Andrews # Eos # Baso # Seg Neutrophils % Seg Neutrophils # Sodium 139 Potassium 4.5 Chloride 97.9 L Carbon Dioxide 28 Anion Gap 18 BUN 6 L Creatinine 0.6 L Estimated GFR > 60 BUN/Creatinine Ratio 10 Glucose 116 H Lactic Acid Calcium 9.5 Lipase - Radiology Data Radiology results: report reviewed, image reviewed Ordering Physician: SAURAV MAGDALENO NP Date of Service: 03/31/19 Procedure(s): CT abdomen pelvis wo con Accession Number(s): [id number] cc: SAURAV MAGDALENO NP CT abdomen pelvis wo con INDICATION: rectal abscess. TECHNIQUE: All CT scans at this location are performed using CT dose reduction for ALARA by means of automated exposure control. COMPARISON: None available. FINDINGS: Lung bases are clear. Liver, spleen and pancreas are negative. Gallbladder is mildly distended but otherwise unremarkable, with no stones or wall thickening. Kidneys and adrenals are negative. Abdominal aorta is normal in size. Pelvis There is indeed abnormal gas and fluid accumulation in the soft tissues of the left perineum and perianal region, consistent with anal fissure and abscess. The rectum itself appears unremarkable. No free fluid within the pelvis. Urinary bladder and distal ureters are negative. Uterus is absent. Normal appendix. No skeletal lesions. IMPRESSION: 1. Left perianal subcutaneous abscess. No intrapelvic involvement. Signer Name: Chadwick Leslie MD Signed: 03/31/2019 8:45 PM Workstation Name: [id number] Transcribed By: REF Dictated By: YAKELIN SHUKLA MD Electronically Authenticated By: YAKELIN SHUKLA MD Signed Date/Time: 03/31/192044 DD/ 39 TD/TT: - Medical Decision Making ct : perianal abscess, consulted general Surgery Dr. Hughes plan: follow up with Infectious Disease Dr Dixon tomorrow, follow up with wound Clinic Tomorrow continue current medications and abx as prescribed return to ed if symptoms worsen, pt verbalized agreement and understanding of discharge plan. tp dc'd tho home in stable conditions at this time. Critical care attestation.: If time is entered above; I have spent that time in minutes in the direct care of this critically ill patient, excluding procedure time. ED Disposition Clinical Impression: Cellulitis and abscess of buttock Disposition: DC-01 TO HOME OR SELFCARE Is pt being admited?: No Does the pt Need Aspirin: No Condition: Stable Instructions: Abscess (ED) Additional Instructions: Follow up with Wound Clinic tomorrow Prescriptions: HYDROcodone/APAP 5-325 [[place] 5-325 mg TAB] 1 each PO Q6HR PRN #12 tablet PRN Reason: Pain Referrals: LUCIEN MORGAN MD [Primary Care Provider] - 3-5 Days KATIE ALBRECHT MD [Staff Physician] - 3-5 Days Time of Disposition: 23:28
[2019-03-31] MEDS ORDERED: NACL 0.9% 1000 ML 1,000 ML IV ONE (20:17)
[2019-03-31 21:10] VITALS: BP 119/75
--- NOTE | 2019-03-31 21:49 | Cat Scan Report ---
CT abdomen pelvis wo con INDICATION: rectal abscess. TECHNIQUE: All CT scans at this location are performed using CT dose reduction for ALARA by means of automated e xposure control. COMPARISON: None available. FINDINGS: Lung bases are clear. Liver, spleen and pancreas are negative. Gallbladder is mildly distended but ot herwise unremarkable, with no stones or wall thickening. Kidneys and adrenals are negative. Abdominal aorta is normal in size. Pelvis There is indeed abnormal gas and fluid accumulation in the soft tissues of the left perineum and remberto anal region, consistent with anal fissure and abscess. The rectum itself appears unremarkable. No chaisty e fluid within the pelvis. Urinary bladder and distal ureters are negative. Uterus is absent. Normal appendix. No skeletal lesions. IMPRESSION: 1. Left perianal subcutaneous abscess. No intrapelvic involvement. Signer Name: Chadwick Leslie MD Signed: 03/31/2019 9:45 PM Workstation Name: [id number]
[2019-03-31 22:10] LABS: BUN/Creatinine Ratio 10; Blood Urea Nitrogen 6 mg/dL (7-17); Calcium 9.5 mg/dL (8.4-10.2); Hemolysis Index 0
--- NOTE | 2019-04-01 07:45 | Event Note ---
Date: 04/01/19 Discussed patient with ER provider overnight. Patient with OPEN wound which has been present since incision and drainage of perirectal abscess on 02/16/19. Pt has made several visits to the ER and has been admitted to the hospital since then. She has not followed recommendations and is noncompliant with follow up. She has left the hospital AMA because she was not receiving IV narcotic medications. She has continuously refused any form of oral pain control. Patient has an outpatient pain management physician. She was scheduled for follow up in the wound care clinic last week and saw Dr. Castorena. Per records, the wound was debrided and she was given wound care instructions. Ct scan images and read reviewed. Air and debris in the area of the perirectal wound because it is a chronic open wound. Advised ER provider to discharge patient is she was stable without fever and if WBC within normal limits and to have her CALL for a follow up appointment with wound care clinic and infectious disease in the am.
== END 2019-03-31 23:48 | disposition home or self-care (01) ==
LOC: ED 14:22
DX: L02.31 Cutaneous abscess of buttock (principal); I10 Essential (primary) hypertension; M19.90 Unspecified osteoarthritis, unspecified site; E78.00 Pure hypercholesterolemia, unspecified; G89.29 Other chronic pain; Z88.6 Allergy status to analgesic agent; Z88.8 Allergy status to other drugs, medicaments and biological substances; Z79.899 Other long term (current) drug therapy; Z88.0 Allergy status to penicillin; Z88.1 Allergy status to other antibiotic agents; Z88.5 Allergy status to narcotic agent; Z98.890 Other specified postprocedural states
CPT/HCPCS: 36415; 74176; 80048; 82140; 83690; 85025; 96365; 96366; 96375; 96376; 99284; J2270; J2405; J7030

== ENCOUNTER 2019-04-11 11:07 | Emergency (ER) | payer MEDICAID ==
--- NOTE | 2019-04-11 11:26 | Event Note ---
ED Screening Note ED Screening Note: pt presents with an abscess in the gluteal cleft that began two months ago has been pus drainage, states there is a foul odor +subjective fever denies any PMHx This initial assessment/diagnostic orders/clinical plan/treatment(s) is/are subject to change based on patients health status, clinical progression and re- assessment by fellow clinical providers in the ED. Further treatment and workup at subsequent clinical providers discretion. Patient/guardian urged not to elope from the ED as their condition may be serious if not clinically assessed and managed. Initial orders include: labs
[2019-04-11 11:59] LABS: Basophils # (Auto) 0.1 K/mm3 (0.0-0.1); Basophils % (Auto) 0.8 % (0.0-1.8); Eosinophils % (Auto) 0.5 % (0.0-4.3); Hematocrit 36.3 % (30.3-42.9); Hemoglobin 12.2 gm/dl (10.1-14.3); Lymphocytes # (Auto) 2.1 K/mm3 (1.2-5.4); Lymphocytes % (Auto) 23.2 % (13.4-35.0); Mean Corpuscular HGB Conc 34 % (30-34); Mean Corpuscular Volume 85 fl (79-97); Monocytes # (Auto) 0.9 K/mm3 (0.0-0.8); Monocytes % (Auto) 9.5 % (0.0-7.3); Platelet Count 668 K/mm3 (140-440); Red Blood Count 4.26 M/mm3 (3.65-5.03); Red Cell Distribution Width 14.5 % (13.2-15.2)
[2019-04-11 12:18] LABS: BUN/Creatinine Ratio 10; Blood Urea Nitrogen 7 mg/dL (7-17); Calcium 9.9 mg/dL (8.4-10.2); Hemolysis Index 0
[2019-04-11] MEDS ORDERED: DILAUDID IV ONE (18:31)
[2019-04-11] MEDS ORDERED: CLEOCIN 300 MG/50 mL 300 MG/50 ML BAG IV ONE (18:31)
[2019-04-11] MEDS ORDERED: NACL 0.9% 1000 ML 1,000 ML IV ONE (18:32)
--- NOTE | 2019-04-11 18:57 | Emergency Department Report ---
ED General Adult HPI - General Chief complaint: Nausea/Vomiting/Diarrhea Stated complaint: BACK/SHOULDER PAIN/VOMITTING Time Seen by Provider: 04/11/19 11:23 Source: patient Mode of arrival: Ambulatory Limitations: No Limitations - History of Present Illness Initial comments: Patient is a 48-year-old female presents to emergency room with complaints of lower back draining abscess. Patient states she's had this abscess for couple months and has had multiple rounds of oral antibiotics. Patient states her doctors in here for IV antibiotics and surgical debridement. Patient states she is having severe pain. Patient states she is having body aches and fever and chills. -: Sudden Severity scale (0 -10): 10 Quality: stabbing Consistency: constant Improves with: rest Worsens with: movement Associated Symptoms: fever/chills, malaise, nausea/vomiting. denies: confusion, chest pain, cough, diaphoresis, headaches, loss of appetite, rash, seizure, shortness of breath, syncope, weakness - Related Data Previous Rx's Medication Instructions Recorded Last Taken Type Pravastatin [Pravachol] 20 mg PO QHS #30 tablet 11/02/18 Unknown Rx Pantoprazole [Protonix TAB] 40 mg PO QDAY #30 tablet 11/18/18 Unknown Rx HYDROcodone/APAP 5-325 [[place] 1 - 2 each PO Q6HR PRN #7 tablet 03/17/19 Unknown Rx 5-325 mg TAB] Linezolid [Zyvox] 600 mg PO BID #14 tablet 03/17/19 Unknown Rx Chlorhexidine Gluconate [Hibiclens] 10 ml TP BID #240 liquid 03/19/19 Unknown Rx Clindamycin [Clindamycin CAP] 300 mg PO Q6H #28 capsule 03/19/19 Unknown Rx Mupirocin [Bactroban 2%] 15 applic TP TID #15 gm 03/19/19 Unknown Rx Doxycycline Hyclate [Doxycycline 100 mg PO Q12HR 10 Days #20 tab 04/11/19 Unknown Rx Hyclate TAB] HYDROcodone/APAP 5-325 [[place] 1 each PO Q6HR PRN #12 tablet 04/11/19 Unknown Rx 5-325 mg TAB] Allergies Allergy/AdvReac Type Severity Reaction Status Date / Time aspirin Allergy Swelling Verified 04/11/19 11:09 hydroxyzine HCl Allergy Anaphylaxis Verified 04/11/19 11:09 [From Vistaril] hydroxyzine pamoate Allergy Anaphylaxis Verified 04/11/19 11:09 [From Vistaril] ketorolac tromethamine Allergy Swelling Verified 04/11/19 11:09 [From Toradol] Penicillins Allergy Anaphylaxis Verified 04/11/19 11:09 tramadol Allergy Shortness Verified 04/11/19 11:09 of Breath vancomycin Allergy Rash Verified 04/11/19 11:09 ED Review of Systems ROS: Stated complaint: BACK/SHOULDER PAIN/VOMITTING Other details as noted in HPI Constitutional: chills, fever Eyes: denies: eye pain, eye discharge, vision change ENT: denies: ear pain, throat pain Respiratory: denies: cough, shortness of breath, wheezing Cardiovascular: denies: chest pain, palpitations Endocrine: no symptoms reported Gastrointestinal: nausea, vomiting. denies: abdominal pain, diarrhea Genitourinary: denies: urgency, dysuria, discharge Musculoskeletal: denies: back pain, joint swelling, arthralgia Skin: denies: rash, lesions Neurological: denies: headache, weakness, paresthesias Psychiatric: denies: anxiety, depression Hematological/Lymphatic: denies: easy bleeding, easy bruising ED Past Medical Hx - Past Medical History Previous Medical History?: Yes Hx Hypertension: Yes Hx Heart Attack/AMI: No Hx Congestive Heart Failure: No Hx Diabetes: No Hx Deep Vein Thrombosis: No Hx Liver Disease: No Hx Renal Disease: No Hx Arthritis: Yes Hx Seizures: No Hx Asthma: No Hx COPD: No Hx HIV: No Additional medical history: chronic pain, hypercholesterolemia, sepsis in 2018, infected hardware in LLL removed 11/2018. spinal stenosis - Surgical History Past Surgical History?: Yes Hx Pacemaker: No Hx Internal Defibrillator: No Additional Surgical History: L leg fx repair. hyst. pelvic fx repair. Pt became septic due to infection caused by metal in LLL: removed early 2018 - Family History Family history: no significant - Social History Smoking Status: Never Smoker Substance Use Type: None - Medications Home Medications: Home Medications Medication Instructions Recorded Confirmed Last Taken Type Pravastatin [Pravachol] 20 mg PO QHS #30 tablet 11/02/18 01/28/19 Unknown Rx Pantoprazole [Protonix TAB] 40 mg PO QDAY #30 tablet 11/18/18 01/28/19 Unknown Rx HYDROcodone/APAP 5-325 [[place] 1 - 2 each PO Q6HR PRN #7 tablet 03/17/19 Unknown Rx 5-325 mg TAB] Linezolid [Zyvox] 600 mg PO BID #14 tablet 03/17/19 Unknown Rx Chlorhexidine Gluconate [Hibiclens] 10 ml TP BID #240 liquid 03/19/19 Unknown Rx Clindamycin [Clindamycin CAP] 300 mg PO Q6H #28 capsule 03/19/19 Unknown Rx Mupirocin [Bactroban 2%] 15 applic TP TID #15 gm 03/19/19 Unknown Rx Doxycycline Hyclate [Doxycycline 100 mg PO Q12HR 10 Days #20 tab 04/11/19 Unknown Rx Hyclate TAB] HYDROcodone/APAP 5-325 [[place] 1 each PO Q6HR PRN #12 tablet 04/11/19 Unknown Rx 5-325 mg TAB] ED Physical Exam - General Limitations: No Limitations General appearance: alert, in no apparent distress - Head Head exam: Present: atraumatic, normocephalic - Eye Eye exam: Present: normal appearance - ENT ENT exam: Present: mucous membranes moist - Neck Neck exam: Present: normal inspection - Respiratory Respiratory exam: Present: normal lung sounds bilaterally. Absent: respiratory distress - Cardiovascular Cardiovascular Exam: Present: regular rate, normal rhythm. Absent: systolic murmur, diastolic murmur, rubs, gallop - GI/Abdominal GI/Abdominal exam: Present: soft, normal bowel sounds - Extremities Exam Extremities exam: Present: normal inspection - Back Exam Back exam: Present: normal inspection, tenderness (small pilonidal cyst noted at gluteal cleft, area open and draining purulent discharge. opening 2 cm in diameter. no induration) - Neurological Exam Neurological exam: Present: alert, oriented X3 - Psychiatric Psychiatric exam: Present: normal affect, normal mood - Skin Skin exam: Present: warm, dry, intact, normal color. Absent: rash ED Course Vital Signs 04/11/19 04/11/19 04/11/19 11:24 19:23 19:43 Temperature 97.8 F Pulse Rate 127 H 90 Respiratory 16 18 16 Rate Blood Pressure 122/79 Blood Pressure 150/94 [Left] O2 Sat by Pulse 97 99 Oximetry 04/11/19 19:44 Temperature Pulse Rate Respiratory 18 Rate Blood Pressure Blood Pressure [Left] O2 Sat by Pulse Oximetry - Reevaluation(s) Reevaluation #1: Patient's heart rate is better. Patient states her pain is down from a 10 out of 10 to a 3 out of 10. Patient states she felt better. Patient has only received 200 mils of fluids. Patient has received clindamycin IV. 04/11/19 19:38 Reevaluation #2: Discussed all results with patient. Patient is stable for discharge. Patient will be discharged home. Patient agrees to plan of care. Patient given discharge instructions. Patient voiced understanding of discharge instructions. 04/11/19 20:05 - Consultations Consultation #1: General surgery paged 04/11/19 19:[address] Damico. Dr. Damico states the patient can be followed up outpatient if the heart rate in the pain improved. 04/11/19 19:25 ED Medical Decision Making - Lab Data Result diagrams: 04/11/19 11:44 04/11/19 11:44 - Medical Decision Making Patient is a 48-year-old with the patient's answer with complaints of draining pilonidal cyst. Patient states that multiple rounds of antibiotics. Patient states outpatient by primary care. Patient complained of body aches and fever and site pain. Patient found to be tachycardic. Patient was given IV clindamycin and IV fluids and her tachycardia and pain improved. Patient is stable for discharge. General surgery consult done to assist with patient having an outpatient referral. Patient given Gen. surgery's information. Patient labs essentially unremarkable. - Differential Diagnosis abscess. Infection. Cellulitis. Pain Critical care attestation.: If time is entered above; I have spent that time in minutes in the direct care of this critically ill patient, excluding procedure time. ED Disposition Clinical Impression: Cellulitis and abscess of buttock, Body aches, Tachycardia Fever Qualifiers: Fever type: unspecified Qualified Code(s): R50.9 - Fever, unspecified Disposition: OP ADMIT IP TO THIS HOSP Is pt being admited?: No Does the pt Need Aspirin: No Condition: Stable Instructions: Abscess (ED) Prescriptions: Doxycycline Hyclate [Doxycycline Hyclate TAB] 100 mg PO Q12HR 10 Days #20 tab HYDROcodone/APAP 5-325 [[place] 5-325 mg TAB] 1 each PO Q6HR PRN #12 tablet PRN Reason: Pain Referrals: JANNA BALLESTEROS MD [Primary Care Provider] - 2-3 Days SEUN DAMICO MD [Staff Physician] - 2-3 Days Time of Disposition: 19:43
[2019-04-11 19:44] VITALS: BP 150/94
== END 2019-04-11 21:02 | disposition admitted as inpatient to this hospital (09) ==
LOC: ED 11:07
DX: L02.31 Cutaneous abscess of buttock (principal); L03.317 Cellulitis of buttock; R00.0 Tachycardia, unspecified; R50.9 Fever, unspecified; I10 Essential (primary) hypertension; M19.90 Unspecified osteoarthritis, unspecified site; E78.00 Pure hypercholesterolemia, unspecified; G89.29 Other chronic pain; Z79.899 Other long term (current) drug therapy; Z88.6 Allergy status to analgesic agent; Z88.0 Allergy status to penicillin; Z88.8 Allergy status to other drugs, medicaments and biological substances
CPT/HCPCS: 36415; 80048; 82140; 85025; 87076; 87116; 87186; 96361; 96365; 96375; 99283; J1170; J7030

== ENCOUNTER 2019-04-21 10:57 | Emergency (ER) | payer MEDICAID ==
[2019-04-21 11:20] VITALS: BP 118/78
--- NOTE | 2019-04-21 11:43 | Emergency Department Report ---
Blank Doc - Documentation Documentation: This is a 48-year-old female that presents with recurrent abscess to buttock a sebas. This initial assessment/diagnostic orders/clinical plan/treatment(s) is/are subject to change based on patient's health status, clinical progression and re- assessment by fellow clinical providers in the ED. Further treatment and workup at subsequent clinical providers discretion. Patient/guardians urged not to elope from the ED as their condition may be serious if not clinically assessed a nd managed. Initial orders include: 1- Patient sent to [facility] for further evaluation and treatment 2- labs
[2019-04-21 13:52] LABS: Basophils % (Auto) 0.8 % (0.0-1.8); Eosinophils % (Auto) 0.8 % (0.0-4.3); Hematocrit 32.5 % (30.3-42.9); Hemoglobin 10.8 gm/dl (10.1-14.3); Lymphocytes # (Auto) 1.2 K/mm3 (1.2-5.4); Lymphocytes % (Auto) 21.4 % (13.4-35.0); Mean Corpuscular HGB Conc 33 % (30-34); Mean Corpuscular Volume 87 fl (79-97); Monocytes # (Auto) 0.6 K/mm3 (0.0-0.8); Monocytes % (Auto) 10.5 % (0.0-7.3); Platelet Count 431 K/mm3 (140-440); Red Blood Count 3.75 M/mm3 (3.65-5.03); Red Cell Distribution Width 14.7 % (13.2-15.2)
[2019-04-21 14:12] LABS: BUN/Creatinine Ratio 13; Blood Urea Nitrogen 8 mg/dL (7-17); Calcium 9.3 mg/dL (8.4-10.2); Hemolysis Index 7
[2019-04-21] MEDS ORDERED: NORCO 5/325 PO ONE (15:42)
--- NOTE | 2019-04-21 15:46 | Emergency Department Report ---
- General Chief Complaint: Skin/Abscess/Foreign Body Stated Complaint: VOMIT/ABCESS ON BUTTOCK/PAIN Time Seen by Provider: 04/21/19 11:23 Source: patient Mode of arrival: Ambulatory Limitations: No Limitations - History of Present Illness Initial Comments: This is a 48-year-old female who presents to the emergency room with a chronic wound to left buttocks with drainage. Patient is followed by pain management and wound care. Patient states she had an abscess removed surgically by Dr. Briscoe 2 months ago. Patient states she is taking antibiotics as prescribed but refused to have multiple debridement. She noticed a new wound above prior wound last night which prompted her to come in for further evaluation. She denies fever, swelling. Onset/Timin -: month(s) Location: other (left buttock) Place: home Patient Tetanus UTD: Yes Associated Symptoms: pain. denies: loss of feeling/numbness, suspect foreign body present, unable to move injured part, weakness followed by dizziness, nausea/vomiting, fever Treatments Prior to Arrival: other (prescribed analgesics and antibiotic) - Related Data Previous Rx's Medication Instructions Recorded Last Taken Type Pravastatin [Pravachol] 20 mg PO QHS #30 tablet 11/02/18 Unknown Rx Pantoprazole [Protonix TAB] 40 mg PO QDAY #30 tablet 11/18/18 Unknown Rx HYDROcodone/APAP 5-325 [[place] 1 - 2 each PO Q6HR PRN #7 tablet 03/17/19 Unknown Rx 5-325 mg TAB] Linezolid [Zyvox] 600 mg PO BID #14 tablet 03/17/19 Unknown Rx Chlorhexidine Gluconate [Hibiclens] 10 ml TP BID #240 liquid 03/19/19 Unknown Rx Clindamycin [Clindamycin CAP] 300 mg PO Q6H #28 capsule 03/19/19 Unknown Rx Mupirocin [Bactroban 2%] 15 applic TP TID #15 gm 03/19/19 Unknown Rx Doxycycline Hyclate [Doxycycline 100 mg PO Q12HR 10 Days #20 tab 04/11/19 Unknown Rx Hyclate TAB] HYDROcodone/APAP 5-325 [[place] 1 each PO Q6HR PRN #12 tablet 04/11/19 Unknown Rx 5-325 mg TAB] Allergies Allergy/AdvReac Type Severity Reaction Status Date / Time aspirin Allergy Swelling Verified 04/11/19 11:09 hydroxyzine HCl Allergy Anaphylaxis Verified 04/11/19 11:09 [From Vistaril] hydroxyzine pamoate Allergy Anaphylaxis Verified 04/11/19 11:09 [From Vistaril] ketorolac tromethamine Allergy Swelling Verified 04/11/19 11:09 [From Toradol] Penicillins Allergy Anaphylaxis Verified 04/11/19 11:09 tramadol Allergy Shortness Verified 04/11/19 11:09 of Breath vancomycin Allergy Rash Verified 04/11/19 11:09 ED Review of Systems ROS: Stated complaint: VOMIT/ABCESS ON BUTTOCK/PAIN Other details as noted in HPI Constitutional: denies: chills, fever Respiratory: denies: cough, shortness of breath, wheezing Cardiovascular: denies: chest pain, palpitations Gastrointestinal: denies: abdominal pain, nausea, diarrhea Skin: lesions (chronic wound to left buttock). denies: rash Neurological: denies: headache, weakness, paresthesias Psychiatric: denies: anxiety, depression ED Past Medical Hx - Past Medical History Hx Hypertension: Yes Hx Heart Attack/AMI: No Hx Congestive Heart Failure: No Hx Diabetes: No Hx Deep Vein Thrombosis: No Hx Liver Disease: No Hx Renal Disease: No Hx Arthritis: Yes Hx Seizures: No Hx Asthma: No Hx COPD: No Hx HIV: No Additional medical history: chronic pain, hypercholesterolemia, sepsis in 2018, infected hardware in LLL removed 11/2018. spinal stenosis - Surgical History Hx Pacemaker: No Hx Internal Defibrillator: No Additional Surgical History: L leg fx repair. hyst. pelvic fx repair. Pt became septic due to infection caused by metal in LLL: removed early 2018 - Social History Smoking Status: Never Smoker Substance Use Type: None - Medications Home Medications: Home Medications Medication Instructions Recorded Confirmed Last Taken Type Pravastatin [Pravachol] 20 mg PO QHS #30 tablet 11/02/18 01/28/19 Unknown Rx Pantoprazole [Protonix TAB] 40 mg PO QDAY #30 tablet 11/18/18 01/28/19 Unknown Rx HYDROcodone/APAP 5-325 [[place] 1 - 2 each PO Q6HR PRN #7 tablet 03/17/19 Unknown Rx 5-325 mg TAB] Linezolid [Zyvox] 600 mg PO BID #14 tablet 03/17/19 Unknown Rx Chlorhexidine Gluconate [Hibiclens] 10 ml TP BID #240 liquid 03/19/19 Unknown Rx Clindamycin [Clindamycin CAP] 300 mg PO Q6H #28 capsule 03/19/19 Unknown Rx Mupirocin [Bactroban 2%] 15 applic TP TID #15 gm 03/19/19 Unknown Rx Doxycycline Hyclate [Doxycycline 100 mg PO Q12HR 10 Days #20 tab 04/11/19 Unknown Rx Hyclate TAB] HYDROcodone/APAP 5-325 [[place] 1 each PO Q6HR PRN #12 tablet 04/11/19 Unknown Rx 5-325 mg TAB] ED Physical Exam - General Limitations: No Limitations General appearance: alert, in no apparent distress - Respiratory Respiratory exam: Present: normal lung sounds bilaterally. Absent: respiratory distress - Cardiovascular Cardiovascular Exam: Present: regular rate, normal rhythm. Absent: systolic murmur, diastolic murmur, rubs, gallop - GI/Abdominal GI/Abdominal exam: Present: soft, normal bowel sounds - Neurological Exam Neurological exam: Present: alert, oriented X3 - Psychiatric Psychiatric exam: Present: normal affect, normal mood - Skin Skin exam: Present: warm, dry, normal color, other (1 cm wound into dermis x 2, left buttock, clear discharge, erythma surrounding wound, tenderness). Absent: intact, rash ED Course Vital Signs 04/21/19 04/21/19 11:18 17:55 Temperature 98 F Pulse Rate 125 H 95 H Respiratory 18 16 Rate Blood Pressure 118/78 O2 Sat by Pulse 98 Oximetry ED Medical Decision Making - Lab Data Result diagrams: 04/21/19 13:20 04/21/19 13:20 Lab Results 04/21/19 04/21/19 Range/Units 13:20 13:20 WBC 5.5 (4.5-11.0) K/mm3 RBC 3.75 (3.65-5.03) M/mm3 Hgb 10.8 (10.1-14.3) gm/dl Hct 32.5 (30.3-42.9) % MCV 87 (79-97) fl MCH 29 (28-32) pg MCHC 33 (30-34) % RDW 14.7 (13.2-15.2) % Plt Count 431 (140-440) K/mm3 Lymph % (Auto) 21.4 (13.4-35.0) % [place] % (Auto) 10.5 H (0.0-7.3) % Eos % (Auto) 0.8 (0.0-4.3) % Baso % (Auto) 0.8 (0.0-1.8) % Lymph # 1.2 (1.2-5.4) K/mm3 [place] # 0.6 (0.0-0.8) K/mm3 Eos # 0.0 (0.0-0.4) K/mm3 Baso # 0.0 (0.0-0.1) K/mm3 Seg Neutrophils % 66.5 (40.0-70.0) % Seg Neutrophils # 3.6 (1.8-7.7) K/mm3 Sodium 142 (137-145) mmol/L Potassium 4.1 (3.6-5.0) mmol/L Chloride 101.9 (98-107) mmol/L Carbon Dioxide 27 (22-30) mmol/L Anion Gap 17 mmol/L BUN 8 (7-17) mg/dL Creatinine 0.6 L (0.7-1.2) mg/dL Estimated GFR > 60 ml/min BUN/Creatinine Ratio 13 % Glucose 123 H (65-100) mg/dL Calcium 9.3 (8.4-10.2) mg/dL - Medical Decision Making Patient was examined by me. Vitals are normal and patient is in no acute distress. Obtained labs. All labs are unremarkable. No signs of infection. Patient have a chronic wound to left buttocks. She is followed by wound care and pain management. Patient is noncompliant with medication. She is currently on antibiotic. Given analgesics while in the ER. Instructed to follow-up with [facility] and [facility] surgery. Patient discharged home in stable condition. Follow up with PCP in 2-3 days. Critical care attestation.: If time is entered above; I have spent that time in minutes in the direct care of this critically ill patient, excluding procedure time. ED Disposition Clinical Impression: Wound drainage Wound of buttock Qualifiers: Encounter type: subsequent encounter Laterality: left Qualified Code(s): S31.829D - Unspecified open wound of left buttock, subsequent encounter Disposition: TO HOME OR SELFCARE Is pt being admited?: No Does the pt Need Aspirin: No Condition: Stable Instructions: Acute Wound Care (ED), Wound Healing and Your Diet (ED) Additional Instructions: Follow-up with wound care clinic and continue taken prescribed antibiotics from wound care. Referrals: LUCIEN MORGAN MD [Primary Care Provider] - 3-5 Days [facility] [Outside] - 3-5 Days Time of Disposition: 16:08
== END 2019-04-21 16:44 | disposition home or self-care (01) ==
LOC: ED 10:57
DX: S31.829D Unspecified open wound of left buttock, subsequent encounter (principal); I10 Essential (primary) hypertension; M19.90 Unspecified osteoarthritis, unspecified site; E78.00 Pure hypercholesterolemia, unspecified; Z79.899 Other long term (current) drug therapy; Z88.6 Allergy status to analgesic agent; Z88.0 Allergy status to penicillin; Z88.1 Allergy status to other antibiotic agents; X58.XXXD Exposure to other specified factors, subsequent encounter
CPT/HCPCS: 36415; 80048; 85025

== ENCOUNTER 2019-05-07 11:48 | Inpatient (IN) | payer MEDICAID ==
--- NOTE | 2019-05-07 13:46 | Emergency Department Report ---
Blank Doc - Documentation Documentation: This is a 48-year-old female that presents with recurrent abscess to the buttock area. This initial assessment/diagnostic orders/clinical plan/treatment(s) is/are subject to change based on patient's health status, clinical progression and re- assessment by fellow clinical providers in the ED. Further treatment and workup at subsequent clinical providers discretion. Patient/guardians urged not to elope from the ED as their condition may be serious if not clinically assessed and managed. Initial orders include: 1- Patient sent to [facility] for further evaluation and treatment
[2019-05-07] MEDS ORDERED: NACL 0.9% 1000 ML IV ONE (15:05)
--- NOTE | 2019-05-07 15:06 | Consultation ---
History of Present Illness Consult date: 05/07/19 Chief complaint: buttock pain - History of present illness History of present illness: 48 yo F with hx of chronic low back pain, perirectal abscess who underwent incision and drainage of perirectal abscess on 02/16/19. Patient returns to ER today due to pain in the buttock region. She states she has been on multuple rounds of antibiotics and does not feel they are working. She c/o drainage and smell from the wound. She c/o sharp pain. She states she has been doing wound care as directed. No f/c. She c/o diarrhea and nausea. Diarrhea has been ongoing for 3 days and nausea has been constant for some time. Patient has been in the ER on 03/10, 03/16, 03/19, 03/31, 04/11, 04/21 for the same complaints. She has only followed up once in the wound care center as advised multiple times. I have personally seen her on her ER visit on 03/16 and discussed care with the ER physician on 03/31. At all encounters, the patient has been given instructions to follow up in wound care center. Unfortunately she has not been compliant. Past History Past Medical History: hyperlipidemia, other (chronic pain) Past Surgical History: Other (incision and drainage of perirectal abscess) Social history: no significant social history Family history: no significant family history Medications and Allergies Allergies Allergy/AdvReac Type Severity Reaction Status Date / Time aspirin Allergy Swelling Verified 04/11/19 11:09 hydroxyzine HCl Allergy Anaphylaxis Verified 04/11/19 11:09 [From Vistaril] hydroxyzine pamoate Allergy Anaphylaxis Verified 04/11/19 11:09 [From Vistaril] ketorolac tromethamine Allergy Swelling Verified 04/11/19 11:09 [From Toradol] Penicillins Allergy Anaphylaxis Verified 04/11/19 11:09 tramadol Allergy Shortness Verified 04/11/19 11:09 of Breath vancomycin Allergy Rash Verified 04/11/19 11:09 Home Medications Medication Instructions Recorded Confirmed Last Taken Type Cyclobenzaprine [Flexeril] 10 mg PO TID PRN 05/07/19 05/07/19 Unknown History Oxycodone HCl/Acetaminophen 1 each PO BID PRN 05/07/19 05/07/19 Unknown History [Percocet 10/325 mg] Simvastatin 10 mg PO DAILY 05/07/19 05/07/19 Unknown History Review of Systems All systems: negative (10 pt ROS performed and negative except for that listed in HPI) Exam Vital Signs Temp Pulse Resp BP Pulse Ox 98.4 F 106 H 18 129/86 97 05/07/19 12:23 05/07/19 12:23 05/07/19 12:23 05/07/19 12:23 05/07/19 12:23 Narrative exam: Gen: AAOx3. NAD ENT: no scleral icterus or conjunctival pallor CV: S1, S2+ Resp: even and unlabored Ext; no c/c/e Gluteal: L sided open gluteal/perirectal wound with slough. Periwound skin with blanching erythema for approximately 8 cm in the cephalad direction with induration and TTP. There is a pinpoint opening in the erythematous skin approximately 4 cm cephalad to the open wound. No drainage from that site. Results - Labs 05/07/19 15:29 05/07/19 15:29 Assessment and Plan 48 yo F with chronic wound of left buttock Plan: 1. Wound is infected and shows sign of deep tissue injury of the remberto wound which was not present on my last exam. Will need further debridement and likely result in a larger wound. 2. NPO p MN tonight 3. will add to OR for tomorrow for debridement of wound - patient is agreeable 4. prn pain control - patient on narcotics at home which are managed by outpatient pain management. 5. IV abx 6. will obtain deep cultures in OR 7. stool studies to r/o cdiff as patient has been on abx for the last several months I had a long discussion with the patient regarding worsening nature of the wound, compliance with outpatient follow. I made her aware that she has missed several critical wound care visits. I believe the chronic nature and det erioration of the wound is due to noncompliance. Patient's not at bedside. Patient called him and explained the plan to him in serbian. Will follow up in am. Thank you, please call with questions
[2019-05-07] MEDS ORDERED: AZACTAM/NS 1 GM/50 ML 1 GM/50 ML VIAL IV ONE (15:07)
--- NOTE | 2019-05-07 15:26 | Emergency Department Report ---
ED General Adult HPI - General Chief complaint: Skin/Abscess/Foreign Body Stated complaint: SEVERE PAIN Time Seen by Provider: 05/07/19 13:46 Source: patient Mode of arrival: Ambulatory Limitations: No Limitations - History of Present Illness Initial comments: Patient presents to the emergency department with a chief complaint of a wound of the left buttocks. Patient states she's had this pain for quite some time and has seen a little care physicians for. -: Gradual Location: buttocks Severity scale (0 -10): 5 Quality: constant Consistency: constant Improves with: none Worsens with: none Associated Symptoms: denies other symptoms Treatments Prior to Arrival: none - Related Data Previous Rx's Medication Instructions Recorded Last Taken Type Pravastatin [Pravachol] 20 mg PO QHS #30 tablet 11/02/18 Unknown Rx Pantoprazole [Protonix TAB] 40 mg PO QDAY #30 tablet 11/18/18 Unknown Rx HYDROcodone/APAP 5-325 [[place] 1 - 2 each PO Q6HR PRN #7 tablet 03/17/19 Unknown Rx 5-325 mg TAB] Linezolid [Zyvox] 600 mg PO BID #14 tablet 03/17/19 Unknown Rx Chlorhexidine Gluconate [Hibiclens] 10 ml TP BID #240 liquid 03/19/19 Unknown Rx Clindamycin [Clindamycin CAP] 300 mg PO Q6H #28 capsule 03/19/19 Unknown Rx Mupirocin [Bactroban 2%] 15 applic TP TID #15 gm 03/19/19 Unknown Rx Doxycycline Hyclate [Doxycycline 100 mg PO Q12HR 10 Days #20 tab 04/11/19 Unknown Rx Hyclate TAB] HYDROcodone/APAP 5-325 [[place] 1 each PO Q6HR PRN #12 tablet 04/11/19 Unknown Rx 5-325 mg TAB] Allergies Allergy/AdvReac Type Severity Reaction Status Date / Time aspirin Allergy Swelling Verified 04/11/19 11:09 hydroxyzine HCl Allergy Anaphylaxis Verified 04/11/19 11:09 [From Vistaril] hydroxyzine pamoate Allergy Anaphylaxis Verified 04/11/19 11:09 [From Vistaril] ketorolac tromethamine Allergy Swelling Verified 04/11/19 11:09 [From Toradol] Penicillins Allergy Anaphylaxis Verified 04/11/19 11:09 tramadol Allergy Shortness Verified 04/11/19 11:09 of Breath vancomycin Allergy Rash Verified 04/11/19 11:09 ED Review of Systems ROS: Stated complaint: SEVERE PAIN Other details as noted in HPI Comment: All other systems reviewed and negative Constitutional: denies: chills, fever Eyes: denies: eye pain, eye discharge, vision change ENT: denies: ear pain, throat pain Respiratory: denies: cough, shortness of breath, wheezing Cardiovascular: denies: chest pain, palpitations Endocrine: no symptoms reported Gastrointestinal: denies: abdominal pain, nausea, diarrhea Genitourinary: denies: urgency, dysuria, discharge Musculoskeletal: denies: back pain, joint swelling, arthralgia Skin: denies: rash, lesions Neurological: denies: headache, weakness, paresthesias Psychiatric: denies: anxiety, depression Hematological/Lymphatic: denies: easy bleeding, easy bruising ED Past Medical Hx - Past Medical History Previous Medical History?: Yes Hx Hypertension: Yes Hx Heart Attack/AMI: No Hx Congestive Heart Failure: No Hx Diabetes: No Hx Deep Vein Thrombosis: No Hx Liver Disease: No Hx Renal Disease: No Hx Arthritis: Yes Hx Seizures: No Hx Asthma: No Hx COPD: No Hx HIV: No Additional medical history: chronic pain, hypercholesterolemia, sepsis in 2018, infected hardware in LLL removed 11/2018. spinal stenosis - Surgical History Past Surgical History?: Yes Hx Pacemaker: No Hx Internal Defibrillator: No Additional Surgical History: L leg fx repair. hyst. pelvic fx repair. Pt became septic due to infection caused by metal in LLL: removed early 2018 - Social History Smoking Status: Never Smoker Substance Use Type: None - Medications Home Medications: Home Medications Medication Instructions Recorded Confirmed Last Taken Type Pravastatin [Pravachol] 20 mg PO QHS #30 tablet 11/02/18 01/28/19 Unknown Rx Pantoprazole [Protonix TAB] 40 mg PO QDAY #30 tablet 11/18/18 01/28/19 Unknown Rx HYDROcodone/APAP 5-325 [[place] 1 - 2 each PO Q6HR PRN #7 tablet 03/17/19 Unknown Rx 5-325 mg TAB] Linezolid [Zyvox] 600 mg PO BID #14 tablet 03/17/19 Unknown Rx Chlorhexidine Gluconate [Hibiclens] 10 ml TP BID #240 liquid 03/19/19 Unknown Rx Clindamycin [Clindamycin CAP] 300 mg PO Q6H #28 capsule 03/19/19 Unknown Rx Mupirocin [Bactroban 2%] 15 applic TP TID #15 gm 03/19/19 Unknown Rx Doxycycline Hyclate [Doxycycline 100 mg PO Q12HR 10 Days #20 tab 04/11/19 Unknown Rx Hyclate TAB] HYDROcodone/APAP 5-325 [[place] 1 each PO Q6HR PRN #12 tablet 04/11/19 Unknown Rx 5-325 mg TAB] ED Physical Exam - General Limitations: No Limitations General appearance: alert, in no apparent distress - Head Head exam: Present: atraumatic, normocephalic - Eye Eye exam: Present: normal appearance - ENT ENT exam: Present: mucous membranes moist - Neck Neck exam: Present: normal inspection - Respiratory Respiratory exam: Present: normal lung sounds bilaterally. Absent: respiratory distress - Cardiovascular Cardiovascular Exam: Present: regular rate, normal rhythm. Absent: systolic murmur, diastolic murmur, rubs, gallop - GI/Abdominal GI/Abdominal exam: Present: soft, normal bowel sounds - Rectal Rectal exam: Present: other (patient has a wound to the left buttocks with surrounding erythema and cellulitis) - Extremities Exam Extremities exam: Present: normal inspection - Back Exam Back exam: Present: normal inspection - Neurological Exam Neurological exam: Present: alert, oriented X3 - Psychiatric Psychiatric exam: Present: normal affect, normal mood - Skin Skin exam: Present: warm, dry, intact, normal color. Absent: rash ED Course Vital Signs 05/07/19 12:23 Temperature 98.4 F Pulse Rate 106 H Respiratory 18 Rate Blood Pressure 129/86 O2 Sat by Pulse 97 Oximetry ED Medical Decision Making - Medical Decision Making IV antibiotics and fluids ordered Patient was seen by her surgeon in emergency department She will be admitted Critical care attestation.: If time is entered above; I have spent that time in minutes in the direct care of this critically ill patient, excluding procedure time. ED Disposition Clinical Impression: Cellulitis, Wound of buttock Disposition: OP ADMIT IP TO THIS HOSP Is pt being admited?: Yes Does the pt Need Aspirin: No Condition: Fair
--- NOTE | 2019-05-07 15:26 | History and Physical Report ---
History of Present Illness Chief complaint: My butt is infected again History of present illness: 48 YO Female with GERD, HTN, HLD, Osteomyelitis S/P PICC line placement, Perirectal Abscess S/P I&D presents to ED for evaluation. Pt states that she has experienced pain in her rectal area, as well as purulent discharge from the site of her previous perirectal abscess over the past 1 week with worsening symptoms over the past 3 days. Pt states that the pain is 7/10, constant, worse with sitting/movement, relieved with nonmovement. Pt states that she is unable to sit in a chair without pain. Pt transported to [facility] via private vehicle. Pt seen and evaluated in ED and found to have recurrent Perirectal Cellulitis/Abscess, as well as SIRS. Surgery team consulted in ED. Pt also acknowledges subjective fever, and buttock pain. Pt denies CP, Palpitations, Chills, Trauma, BRBPR, Unintentional weight loss, night sweats, or recent ill contacts. Pt admitted to medical floor. Wound care consulted in ED. Prior admission on 03/16/19 reviewed. All listed medication reconciled at time of admission. Pt NPO after midnight for surgical intervention in AM. Past History Past Medical History: GERD, hypertension, hyperlipidemia, other (Obesity, Perirectal Abscess, Noncompliance, ) Past Surgical History: hysterectomy, Other (I&D perirectal Abscess) Social history: , lives with family. denies: smoking, alcohol abuse, prescription drug abuse Family history: diabetes, hypertension Medications and Allergies Allergies Allergy/AdvReac Type Severity Reaction Status Date / Time aspirin Allergy Swelling Verified 04/11/19 11:09 hydroxyzine HCl Allergy Anaphylaxis Verified 04/11/19 11:09 [From Vistaril] hydroxyzine pamoate Allergy Anaphylaxis Verified 04/11/19 11:09 [From Vistaril] ketorolac tromethamine Allergy Swelling Verified 04/11/19 11:09 [From Toradol] Penicillins Allergy Anaphylaxis Verified 04/11/19 11:09 tramadol Allergy Shortness Verified 04/11/19 11:09 of Breath vancomycin Allergy Rash Verified 04/11/19 11:09 Home Medications Medication Instructions Recorded Confirmed Last Taken Type Pravastatin [Pravachol] 20 mg PO QHS #30 tablet 11/02/18 01/28/19 Unknown Rx Pantoprazole [Protonix TAB] 40 mg PO QDAY #30 tablet 11/18/18 01/28/19 Unknown Rx HYDROcodone/APAP 5-325 [[place] 1 - 2 each PO Q6HR PRN #7 tablet 03/17/19 Unknown Rx 5-325 mg TAB] Linezolid [Zyvox] 600 mg PO BID #14 tablet 03/17/19 Unknown Rx Chlorhexidine Gluconate [Hibiclens] 10 ml TP BID #240 liquid 03/19/19 Unknown Rx Clindamycin [Clindamycin CAP] 300 mg PO Q6H #28 capsule 03/19/19 Unknown Rx Mupirocin [Bactroban 2%] 15 applic TP TID #15 gm 03/19/19 Unknown Rx Doxycycline Hyclate [Doxycycline 100 mg PO Q12HR 10 Days #20 tab 04/11/19 Unknown Rx Hyclate TAB] HYDROcodone/APAP 5-325 [[place] 1 each PO Q6HR PRN #12 tablet 04/11/19 Unknown Rx 5-325 mg TAB] Active Meds: Active Medications Aztreonam (Azactam/Ns 1 Gm/50 Ml) 1 gm in 50 mls @ 50 mls/hr IV ONCE ONE Stop: 05/07/19 16:06 Review of Systems Constitutional: fever, no weight loss, no weight gain, no chills Ears, nose, mouth and throat: no ear pain, no ear discharge, no tinnitis, no decreased hearing, no nose pain, no nasal congestion, no nasal discharge Breasts: no change in shape, no swelling, no mass Cardiovascular: no chest pain, no rapid/irregular heart beat, no syncope, no lightheadedness Respiratory: no cough, no excessive sputum, no hemoptysis Gastrointestinal: no nausea, no vomiting, no diarrhea, no constipation, no hematemesis Genitourinary Female: no dysmenorrhea, no pelvic pain, no flank pain, no dysuria, no urgency, no incomplete emptying, no urge incontinence, no mixed incontinence Rectal: pain, discharge Musculoskeletal: no neck stiffness, no neck pain, no shooting arm pain, no arm numbness/tingling, no shooting leg pain, no leg numbness/tingling Integumentary: no rash, no pruritis, no sores, no wounds Neurological: no head injury, no transient paralysis, no weakness, no parathesias, no tingling, no seizures Psychiatric: no anxiety, no change in sleep habits, no sleep disturbances, no hypersomnia, no change in libido, no suicidal ideation Endocrine: no cold intolerance, no polyuria, no flushing Hematologic/Lymphatic: no easy bruising, no easy bleeding, no lymphadenopathy Allergic/Immunologic: no allergic rhinitis, no wheezing, no persistent infections, no angioedema Exam - Constitutional Vitals: Temp Pulse Resp BP Pulse Ox 98.4 F 106 H 18 129/86 97 05/07/19 12:23 05/07/19 12:23 05/07/19 12:23 05/07/19 12:23 05/07/19 12:23 General appearance: Present: mild distress - EENT Eyes: Present: PERRL ENT: hearing intact, clear oral mucosa - Neck Neck: Present: supple, normal ROM - Respiratory Respiratory effort: normal Respiratory: bilateral: CTA - Cardiovascular Heart Sounds: Present: S1 & S2. Absent: rub, click - Extremities Extremities: pulses symmetrical, No edema Peripheral Pulses: within normal limits - Abdominal General gastrointestinal: Present: soft, non-tender, non-distended, normal bowel sounds Female genitourinary: Present: normal - Rectal Rectal Exam: tenderness, other (Gluteal erythema, purulent discharge from left buttock, ) - Integumentary Integumentary: Present: clear, warm, dry - Musculoskeletal Musculoskeletal: gait normal, strength equal bilaterally - Psychiatric Psychiatric: appropriate mood/affect, intact judgment & insight - Neurologic Neurologic: CNII-XII intact, moves all extremities Results - Labs CBC & Chem 7: 05/07/19 15:29 05/07/19 15:29 Assessment and Plan - Patient Problems (1) Cellulitis and abscess of buttock Status: Acute Plan to address problem: IV antibiotic therapy, wound care consulted, Surgery consulted in ED, Pt to OR in am for I&D, CBC, CMP, lactic acid level, serial physical exam. (2) SIRS (systemic inflammatory response syndrome) Status: Acute Plan to address problem: CBC, CMP, urinalysis, IV antibiotic therapy, lactic acid therapy, (3) HTN (hypertension) Status: Acute Qualifiers: Hypertension type: essential hypertension Qualified Code(s): I10 - Essential (primary) hypertension Plan to address problem: monitor bp q shift, continue medical management. (4) HLD (hyperlipidemia) Status: Acute Qualifiers: Hyperlipidemia type: mixed hyperlipidemia Qualified Code(s): E78.2 - Mixed hyperlipidemia Plan to address problem: Statin therapy, low cholesterol diet, supportive care. (5) DVT prophylaxis Status: Acute Plan to address problem: SCD to BLE while in bed,
[2019-05-07] MEDS ORDERED: SODIUM CHLORIDE FLUSH SYRINGE 10 ML IV PRN (15:39)
[2019-05-07] MEDS ORDERED: PROVENTIL IH PRN (15:39)
[2019-05-07] MEDS ORDERED: TYLENOL PO PRN (15:39)
[2019-05-07] MEDS ORDERED: PERCOCET 5/325 PO PRN (15:39)
[2019-05-07 15:44] LABS: Basophils # (Auto) 0.1 K/mm3 (0.0-0.1); Basophils % (Auto) 0.9 % (0.0-1.8); Eosinophils # (Auto) 0.1 K/mm3 (0.0-0.4); Eosinophils % (Auto) 1.2 % (0.0-4.3); Hemoglobin 11.2 gm/dl (10.1-14.3); Lymphocytes # (Auto) 1.7 K/mm3 (1.2-5.4); Mean Corpuscular HGB Conc 33 % (30-34); Mean Corpuscular Volume 85 fl (79-97); Monocytes # (Auto) 0.6 K/mm3 (0.0-0.8); Monocytes % (Auto) 9.7 % (0.0-7.3); Platelet Count 463 K/mm3 (140-440); Red Blood Count 3.98 M/mm3 (3.65-5.03)
[2019-05-07 16:07] LABS: Alanine Aminotransferase 10 units/L (7-56); Albumin 3.9 g/dL (3.9-5); BUN/Creatinine Ratio 10; Blood Urea Nitrogen 5 mg/dL (7-17); Calcium 9.1 mg/dL (8.4-10.2); Hemolysis Index 4
--- NOTE | 2019-05-07 16:27 | XRay Report ---
CHEST 1 VIEW INDICATION / CLINICAL INFORMATION: sepsis. COMPARISON: 03/19/2019 FINDINGS: SUPPORT DEVICES: None. HEART / MEDIASTINUM: No significant abnormality. LUNGS / PLEURA: No significant pulmonary or pleural abnormality. No pneumothorax. ADDITIONAL FINDINGS: No significant additional findings. IMPRESSION: 1. No acute findings. Signer Name: Hood Freedman MD Signed: 05/07/2019 4:22 PM Workstation Name: [id number]
[2019-05-07] MEDS: MORPHINE IV PRN ×2 (17:00→22:54)
[2019-05-07] MEDS: ZOFRAN IV PRN (17:00)
[2019-05-07 18:42] LABS: Amorphous Crystals,Urine Few; Bilirubin,Urine NEG (Negative); Blood,Urine LG (Negative); Color,Urine Yellow (Yellow); Mucus,Urine FEW /HPF; Protein,Urine <15 mg/dL mg/dL (Negative); Urobilinogen,Urine < 2.0 mg/dL (<2.0)
[2019-05-07] MEDS: ZYVOX 600MG/300ML 600 MG/300 ML BAG IV SCH (22:54)
[2019-05-07] MEDS: SODIUM CHLORIDE FLUSH SYRINGE 10 ML IV SCH (22:54)
[2019-05-08] MEDS: CLEOCIN 300 MG/50 mL 300 MG/50 ML BAG IV SCH ×4 (00:15→13:33)
[2019-05-08] MEDS: MORPHINE IV PRN ×3 (04:41→13:44)
[2019-05-08 05:37] LABS: Basophils # (Auto) 0.1 K/mm3 (0.0-0.1); Basophils % (Auto) 1.2 % (0.0-1.8); Eosinophils # (Auto) 0.1 K/mm3 (0.0-0.4); Eosinophils % (Auto) 1.5 % (0.0-4.3); Hematocrit 31.2 % (30.3-42.9); Hemoglobin 10.6 gm/dl (10.1-14.3); Lymphocytes # (Auto) 2.2 K/mm3 (1.2-5.4); Lymphocytes % (Auto) 38.5 % (13.4-35.0); Mean Corpuscular HGB Conc 34 % (30-34); Mean Corpuscular Volume 85 fl (79-97); Monocytes # (Auto) 0.6 K/mm3 (0.0-0.8); Monocytes % (Auto) 10.5 % (0.0-7.3); Platelet Count 442 K/mm3 (140-440); Red Blood Count 3.68 M/mm3 (3.65-5.03); Red Cell Distribution Width 14.7 % (13.2-15.2)
[2019-05-08 05:59] LABS: Alanine Aminotransferase 10 units/L (7-56); Albumin 3.6 g/dL (3.9-5); BUN/Creatinine Ratio 10; Blood Urea Nitrogen 6 mg/dL (7-17); Calcium 9.4 mg/dL (8.4-10.2); Hemolysis Index 3
[2019-05-08] MEDS: SODIUM CHLORIDE FLUSH SYRINGE 10 ML IV SCH (09:53)
[2019-05-08] MEDS: ZYVOX 600MG/300ML 600 MG/300 ML BAG IV SCH ×2 (09:53→21:03)
[2019-05-08] MEDS ORDERED: DILAUDID IV ONE (10:04)
[2019-05-08] MEDS ORDERED: PERCOCET 5/325 PO PRN (10:05)
--- NOTE | 2019-05-08 13:29 | Consultation ---
History of Present Illness - Reason for Consult Consult date: 05/08/19 - History of Present Illness 48 yo F PMHx GERD, HTN, HLD, previous osteomyelitis and remberto-rectal abscess that was intially drained in January and subsequent non-healing wound. She presented to the ED complaining of increasing pain and purulent discharge from her sacral wound. These symptoms began 3 days prior to admission and are associated with subjective fevers. Pain is with with sitting and constant. She was seen by surg myla team in the ED and noted to have worsening of the wound since her being previously seen in March and March. It is noted she is not compliant with recommended wound care. She will be taken to the OR tomorrow for debridement of the wound. She was previously seen by our service in January when she had a remberto-rectal abscess present. Cultures at that time grew MRSA and she was given linezolid after hav ing I&D of the abscess. During subsequent visits to the ED her wound was cultured and grew: 04/11/19: Proteus, Raoultella, Kleb pneumoniae and oxytoca, group G Strep 03/16: Proteus, E coli, Group F Strep. She has received several courses of antibiotics without resolution of her wound and symptoms. Afebrile since admission. Currently receiving clindamycin and linezolid. Normal white count. Blood cultures are pending. Past History Past Medical History: GERD, hyperlipidemia, other (chronic pain) Past Surgical History: Other (incision and drainage of perirectal abscess) Social history: no significant social history. denies: alcohol abuse, IV drug use Family history: hypertension Medications and Allergies Allergies Allergy/AdvReac Type Severity Reaction Status Date / Time aspirin Allergy Swelling Verified 04/11/19 11:09 hydroxyzine HCl Allergy Anaphylaxis Verified 04/11/19 11:09 [From Vistaril] hydroxyzine pamoate Allergy Anaphylaxis Verified 04/11/19 11:09 [From Vistaril] ketorolac tromethamine Allergy Swelling Verified 04/11/19 11:09 [From Toradol] Penicillins Allergy Anaphylaxis Verified 04/11/19 11:09 tramadol Allergy Shortness Verified 04/11/19 11:09 of Breath vancomycin Allergy Rash Verified 04/11/19 11:09 Home Medications Medication Instructions Recorded Confirmed Last Taken Type Cyclobenzaprine [Flexeril] 10 mg PO TID PRN 05/07/19 05/07/19 Unknown History Oxycodone HCl/Acetaminophen 1 each PO BID PRN 05/07/19 05/07/19 Unknown History [Percocet 10/325 mg] Simvastatin 10 mg PO DAILY 05/07/19 05/07/19 Unknown History Active Meds: Active Medications Acetaminophen (Tylenol) 650 mg PO Q4H PRN PRN Reason: Pain MILD(1-3)/Fever >100.5/BURCIAGA Albuterol (Proventil) 2.5 mg IH Q4HRT PRN PRN Reason: Shortness Of Breath Clindamycin HCl (Cleocin 300 Mg/50 Ml) 300 mg in 50 mls @ 100 mls/hr IV Q6HR JASON; Protocol Last Admin: 05/08/19 07:45 Dose: 100 mls/hr Documented by: Linezolid (Zyvox 600mg/300ml) 600 mg in 300 mls @ 300 mls/hr IV Q12HR JASON; Protocol Last Admin: 05/08/19 09:53 Dose: 300 mls/hr Documented by: Morphine Sulfate (Morphine) 2 mg IV Q4H PRN PRN Reason: Pain, Moderate (4-6) Last Admin: 05/08/19 09:52 Dose: 2 mg Documented by: Ondansetron HCl (Zofran) 4 mg IV Q8H PRN PRN Reason: Nausea And Vomiting Last Admin: 05/07/19 17:00 Dose: 4 mg Documented by: Oxycodone/Acetaminophen (Percocet 5/325) 2 tab PO Q6H PRN PRN Reason: Pain, Moderate (4-6) Sodium Chloride (Sodium Chloride Flush Syringe 10 Ml) 10 ml IV BID [facility] Last Admin: 05/08/19 09:53 Dose: 10 ml Documented by: Sodium Chloride (Sodium Chloride Flush Syringe 10 Ml) 10 ml IV PRN PRN PRN Reason: LINE FLUSH Physical Examination - Physical Exam Narrative exam: Constitutional: awake, no distress, following commands Head, Ears, Nose: Normocephalic, atraumatic. External ears, nose normal Eyes: Conjunctivae/corneas clear. No icterus. No ptosis. Neck: Supple, no meningeal signs Oral: fair dentition, moist mucous membranes Cardiovascular: S1, S2 normal. Normal rhythm Respiratory: Good air entry, clear to auscultation bilaterally GI: Soft, non-tender; bowel sounds normal. No peritoneal signs Musculoskeletal: No pedal edema. Wound on L medial gluteal cleft margin. Skin: No rash or abscess Hem/Lymphatic: No palpable cervical or supraclavicular nodes. No lymphangitis Psych: no agitation Neurological: Moves all extremities, no focal defects - Constitutional Vitals: Vital Signs Temp Pulse Resp BP Pulse Ox 97.2 F L 82 20 126/74 99 05/08/19 11:37 05/08/19 11:37 05/08/19 11:37 05/08/19 11:37 05/08/19 11:37 Temperature -Last 24 Hours Temperature 97.2 F Temperature 97.9 F Temperature 97.7 F Temperature 98.6 F Results - Labs CBC & Chem 7: 05/08/19 05:14 05/08/19 05:14 Labs: Abnormal lab results 05/07/19 05/07/19 05/07/19 Range/Units 15:29 15:29 17:15 Plt Count 463 H (140-440) K/mm3 Lymph % (Auto) (13.4-35.0) % [place] % (Auto) 9.7 H (0.0-7.3) % Carbon Dioxide (22-30) mmol/L BUN 5 L (7-17) mg/dL Creatinine 0.5 L (0.7-1.2) mg/dL Albumin (3.9-5) g/dL Urine WBC (Auto) 76.0 H (0.0-6.0) /HPF 05/08/19 05/08/19 Range/Units 05:14 05:14 Plt Count 442 H (140-440) K/mm3 Lymph % (Auto) 38.5 H (13.4-35.0) % [place] % (Auto) 10.5 H (0.0-7.3) % Carbon Dioxide 31 H (22-30) mmol/L BUN 6 L (7-17) mg/dL Creatinine 0.6 L (0.7-1.2) mg/dL Albumin 3.6 L (3.9-5) g/dL Urine WBC (Auto) (0.0-6.0) /HPF - Imaging and Cardiology Chest x-ray: image reviewed Assessment and Plan Cultures: 05/06 BCx - NGTD Previous wound Cx: 04/11/19: Proteus, Raoultella, Kleb pneumoniae and oxytoca, group G Strep 03/16: Proteus, E coli, Group F Strep. 01/2019 - MRSA A/P: 48 yo F PMHx GERD, HTN, HLD, previous osteomyelitis and remberto-rectal abscess admitted with worsening drainage and pain from gluteal wound. 1. Infected gluteal wound - for debridement today, agree with obtaining deep cultures and will follow those up to determine appropriate course. Will need to see depth of wound to determine duration of antibiotics. Given history of gram negatives, would add aztreonam and metronidazole in addition to linezolid. She has an anaphylactic allergy to penicillins, as such I am not willing to risk a cross-reaction with cephalosporins, despite the very low rates of cross- reactivity. 2. Hx of osteomyelitis 3. GERD 4. HTN 5. HLD 6. Diarrhea - follow up C diff PCR Recs: - stop clindamycin - continue linezolid - start aztreonam 2g q8h - start metronidazole 500mg q8h - obtain and follow up deep cultures. - f/u C diff PCR Thank you for the consult and we will continue to follow along with you. Sravanthi Reynoso MD [facility] ([facility] C: [phone] O: [phone] F: [phone]
--- NOTE | 2019-05-08 13:53 | Anesthesia Day of Surgery ---
Anesthesia Day of Surgery - Day of Surgery Patient Examined: Yes Patient H&P Reviewed: Yes Patient is NPO: Yes
--- NOTE | 2019-05-08 13:53 | Anesthesia Consultation ---
Anesthesia Consult and Med Hx Date of service: 05/08/19 - Airway Anesthetic Teeth Evaluation: Good ROM Head & Neck: Adequate Mental/Hyoid Distance: Adequate Mallampati Class: Class II Intubation Access Assessment: Good - Pulmonary Exam CTA: Yes - Cardiac Exam Cardiac Exam: RRR - Pre-Operative Health Status ASA Pre-Surgery Classification: ASA2 Proposed Anesthetic Plan: General, MAC - Pulmonary Hx Smoking: No Hx Asthma: No Hx Respiratory Symptoms: No COPD: No Hx Pneumonia: No - Cardiovascular System Hx Hypertension: Yes Hx Heart Attack/AMI: No Hx Percutaneous Transluminal Coronary Angioplasty (PTCA): No Hx Pacemaker: No Hx Internal Defibrillator: No - Central Nervous System Hx Seizures: No CVA: No Hx Back Pain: Yes (spinal stenosis) - Endocrine Hx Renal Disease: No Hx End Stage Renal Disease: No Hx Liver Disease: No Hx Insulin Dependent Diabetes: No Hx Non-Insulin Dependent Diabetes: No Hx Thyroid Disease: No - Other Systems Hx Cancer: No Hx Obesity: Yes
--- NOTE | 2019-05-08 14:34 | Progress Note ---
Assessment and Plan Assessment and plan: 48 yo F PMHx GERD, HTN, HLD, previous osteomyelitis and remberto-rectal abscess that was intially drained in January and subsequent non-healing wound. 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 Cultures at that time grew MRSA and she was given linezolid after having I&D of the abscess. During subsequent visits to the ED her wound was cultured and grew: 04/11/19: Proteus, Raoultella, Kleb pneumoniae and oxytoca, group G Strep 03/16: Proteus, E coli, Group F Strep. Cellulitis and abscess of buttock/sepsis IV antibiotic therapy, wound care consulted, for debridement in OR today -needs deep surgical cultures HTN (hypertension) monitor bp q shift, continue medical management. HLD (hyperlipidemia) Statin therapy, low cholesterol diet, supportive care. DVT prophylaxis SCD to BLE while in bed, History Interval history: no fevers complaining of perirectal pain no vomiting no cough no diarrhea Hospitalist Physical - Constitutional Vitals: Temp Pulse Resp BP Pulse Ox 97.2 F L 82 20 126/74 99 05/08/19 11:37 05/08/19 11:37 05/08/19 11:37 05/08/19 11:37 05/08/19 11:37 General appearance: Present: mild distress - EENT Eyes: Present: PERRL ENT: hearing intact, dentition normal (gold teeth caps) - Neck Neck: Present: supple - Respiratory Respiratory effort: normal Respiratory: bilateral: CTA - Cardiovascular Rhythm: regular Heart Sounds: Present: S1 & S2 - Extremities Extremities: no ischemia Peripheral Pulses: within normal limits - Abdominal General gastrointestinal: soft, non-tender - Integumentary Integumentary: Present: clear, warm, dry - Psychiatric Psychiatric: appropriate mood/affect, intact judgment & insight - Neurologic Neurologic: CNII-XII intact, moves all extremities Results - Labs CBC & Chem 7: 05/08/19 05:14 05/08/19 05:14 Labs: Laboratory Last Values WBC 5.8 K/mm3 (4.5-11.0) 05/08/19 05:14 RBC 3.68 M/mm3 (3.65-5.03) 05/08/19 05:14 Hgb 10.6 gm/dl (10.1-14.3) 05/08/19 05:14 Hct 31.2 % (30.3-42.9) 05/08/19 05:14 MCV 85 fl (79-97) 05/08/19 05:14 MCH 29 pg (28-32) 05/08/19 05:14 MCHC 34 % (30-34) 05/08/19 05:14 RDW 14.7 % (13.2-15.2) 05/08/19 05:14 Plt Count 442 K/mm3 (140-440) H 05/08/19 05:14 Lymph % (Auto) 38.5 % (13.4-35.0) H 05/08/19 05:14 [place] % (Auto) 10.5 % (0.0-7.3) H 05/08/19 05:14 Eos % (Auto) 1.5 % (0.0-4.3) 05/08/19 05:14 Baso % (Auto) 1.2 % (0.0-1.8) 05/08/19 05:14 Lymph # 2.2 K/mm3 (1.2-5.4) 05/08/19 05:14 [place] # 0.6 K/mm3 (0.0-0.8) 05/08/19 05:14 Eos # 0.1 K/mm3 (0.0-0.4) 05/08/19 05:14 Baso # 0.1 K/mm3 (0.0-0.1) 05/08/19 05:14 Seg Neutrophils % 48.3 % (40.0-70.0) 05/08/19 05:14 Seg Neutrophils # 2.8 K/mm3 (1.8-7.7) 05/08/19 05:14 APTT 34.9 Sec. (24.2-36.6) 05/07/19 15:29 Sodium 144 mmol/L (137-145) 05/08/19 05:14 Potassium 4.4 mmol/L (3.6-5.0) 05/08/19 05:14 Chloride 104.7 mmol/L (98-107) 05/08/19 05:14 Carbon Dioxide 31 mmol/L (22-30) H 05/08/19 05:14 13 mmol/L 05/08/19 05:14 BUN 6 mg/dL (7-17) L 05/08/19 05:14 0.6 mg/dL (0.7-1.2) L 05/08/19 05:14 Estimated GFR > 60 ml/min 05/08/19 05:14 10 % 05/08/19 05:14 Glucose 85 mg/dL (65-100) 05/08/19 05:14 Lactic Acid 1.00 mmol/L (0.7-2.0) 05/07/19 19:09 Calcium 9.4 mg/dL (8.4-10.2) 05/08/19 05:14 < 0.20 mg/dL (0.1-1.2) 05/08/19 05:14 AST 14 units/L (5-40) 05/08/19 05:14 ALT 10 units/L (7-56) 05/08/19 05:14 77 units/L (35-129) 05/08/19 05:14 7.5 g/dL (6.3-8.2) 05/08/19 05:14 3.6 g/dL (3.9-5) L 05/08/19 05:14 0.9 % 05/08/19 05:14 Yellow (Yellow) 05/07/19 17:15 Cloudy (Clear) 05/07/19 17:15 6.0 (5.0-7.0) 05/07/19 17:15 Ur Specific [place] 1.006 (1.003-1.030) 05/07/19 17:15 <15 mg/dl mg/dL (Negative) 05/07/19 17:15 Neg mg/dL (Negative) 05/07/19 17:15 Neg mg/dL (Negative) 05/07/19 17:15 Lg (Negative) 05/07/19 17:15 Neg (Negative) 05/07/19 17:15 Neg (Negative) 05/07/19 17:15 < 2.0 mg/dL (<2.0) 05/07/19 17:15 Ur Leukocyte Esterase Lg (Negative) 05/07/19 17:15 76.0 /HPF (0.0-6.0) H 05/07/19 17:15 27.0 /HPF (0.0-6.0) 05/07/19 17:15 U Epithel Cells (Auto) 3.0 /HPF (0-13.0) 05/07/19 17:15 Amorphous Crystals Few 05/07/19 17:15 Few /HPF 05/07/19 17:15 Active Medications - Current Medications Current Medications: Generic Name Dose Route Start Last Admin Trade Name Freq PRN Reason Stop Dose Admin Acetaminophen 650 mg 05/07/19 15:39 Tylenol PO Q4H PRN Pain MILD(1-3)/Fever >100.5/BURCIAGA Albuterol 2.5 mg 05/07/19 15:39 Proventil IH Q4HRT PRN Shortness Of Breath Clindamycin HCl 300 mg in 50 mls @ 100 mls/hr 05/07/19 18:00 05/08/19 13:33 Cleocin 300 Mg/50 Ml IV 100 mls/hr Q6HR JASON Administration Protocol Linezolid 600 mg in 300 mls @ 300 mls/hr 05/07/19 22:00 05/08/19 09:53 Zyvox 600mg/300ml IV 300 mls/hr Q12HR JASON Administration Protocol Morphine Sulfate 2 mg 05/07/19 15:59 05/08/19 13:44 Morphine IV 2 mg Q4H PRN Administration Pain, Moderate (4-6) Ondansetron HCl 4 mg 05/07/19 15:39 05/07/19 17:00 Zofran IV 4 mg Q8H PRN Administration Nausea And Vomiting Oxycodone/Acetaminophen 2 tab 05/08/19 10:05 Percocet 5/325 PO Q6H PRN Pain, Moderate (4-6) Sodium Chloride 10 ml 05/07/19 22:00 05/08/19 09:53 Sodium Chloride Flush Syringe 10 Ml IV 10 ml BID JASON Administration Sodium Chloride 10 ml 05/07/19 15:39 Sodium Chloride Flush Syringe 10 Ml IV PRN PRN LINE FLUSH
--- NOTE | 2019-05-08 16:45 | Event Note ---
Date: 05/08/19 Discussed postponing surgery til tomorrow as it is not urgent and due to OR staffing at this times. I also gave her the option to wait to have surgery tonight but timing will be unknown since we will follow another surgery. She elected to wait til tomorrow. Will order reg diet and make NPO p MN. Consent for debridement on chart. D/W CHERELLE Shah
[2019-05-08] MEDS: DILAUDID IV PRN ×2 (17:28→20:53)
[2019-05-08] MEDS: ZOFRAN IV PRN (20:53)
[2019-05-08] MEDS: FLAGYL PO SCH (21:03)
[2019-05-08] MEDS ORDERED: NON-FORMULARY (Oxycodone Hcl/Acetaminophen [Percocet 10/325 Mg] 1 EACH) PO PRN (21:40)
[2019-05-08] MEDS ORDERED: FLEXERIL PO PRN (21:40)
[2019-05-08] MEDS ORDERED: AZACTAM IM SCH (22:00)
[2019-05-08] MEDS: AZACTAM/NS 2 GM/100 ML 2 GM/100 ML VIAL IV SCH (23:58)
[2019-05-09] MEDS: SODIUM CHLORIDE FLUSH SYRINGE 10 ML IV SCH ×3 (00:01→21:01)
[2019-05-09] MEDS: DILAUDID IV PRN ×7 (01:19→23:50)
[2019-05-09] MEDS: FLAGYL PO SCH ×3 (05:09→21:00)
[2019-05-09] MEDS: AZACTAM/NS 2 GM/100 ML 2 GM/100 ML VIAL IV SCH ×3 (07:51→23:42)
[2019-05-09] MEDS: ZYVOX 600MG/300ML 600 MG/300 ML BAG IV SCH ×2 (09:11→21:00)
--- NOTE | 2019-05-09 09:50 | Progress Note ---
Assessment and Plan Cultures: 05/06 BCx - NGTD 05/07 Urine- 10-10K of mixed >2 organisms 05/07 MRSA PCR; in progress 05/09/ Surgical Biopsy Rectum: NGTD Previous wound Cx: 04/11/19: Proteus, Raoultella, Kleb pneumoniae and oxytoca, group G Strep 03/16: Proteus, E coli, Group F Strep. 01/2019 - MRSA A/P: 48 yo F PMHx GERD, HTN, HLD, previous osteomyelitis and remberto-rectal abscess admitted with worsening drainage and pain from gluteal wound. 1. Infected gluteal wound - S/p excisional debridement of chronic perirectal wound. Incision and drainage of thrombosed external hemorrhoid. Given history of gram negatives, continue aztreonam, metronidazole and linezolid. 2. Hx of osteomyelitis 3. GERD 4. HTN 5. HLD 6. Diarrhea - Improved. Follow up C diff PCR 7. Allergies- PCN. Vancomycin: anaphylactic allergy to penicillins, as such I am not willing to risk a cross-reaction with cephalosporins, despite the very low rates of cross-reactivity. Recs: - continue linezolid, D3 - continue aztreonam 2g q8h, D2 - continue metronidazole 500mg q8h, D2 - f/u C diff PCR - Continue wound care Dr. Reynoso will round on Sunday. Dr. Dixon is taking call this weekend , please call for questions. [facility]A [facility] M: [id number] O:[phone] Subjective Date of service: 05/09/19 Interval history: Patient seen and examined. Reports gluteal wound tenderness with generalized weakness. No fevers. Objective - Exam Narrative Exam: Constitutional: Sleepy, easily arousable. Acute L gluteal tenderness reported Head, Ears, Nose: Normocephalic, atraumatic. External ears, nose normal Eyes: Conjunctivae/corneas clear. No icterus. No ptosis. Neck: Supple, no meningeal signs Oral: fair dentition, moist mucous membranes Cardiovascular: S1, S2 normal. Normal rhythm Respiratory: Good air entry, clear to auscultation bilaterally GI: Soft, non-tender; bowel sounds normal. No peritoneal signs Musculoskeletal: No pedal edema. Wound on L medial gluteal cleft margin. Dressing c/d/I Skin: No rash or abscess Hem/Lymphatic: No palpable cervical or supraclavicular nodes. No lymphangitis Psych: no agitation Neurological: Moves all extremities, no focal defects - Constitutional Vitals: Vital Signs Temp Pulse Resp BP Pulse Ox 97.7 F 96 H 18 93/55 97 05/09/19 05:06 05/09/19 05:06 05/09/19 05:41 05/09/19 05:06 05/09/19 08:06 Temperature -Last 24 Hours Temperature 97.7 F Temperature 98.6 F Temperature 98.2 F Temperature 97.2 F - Labs CBC & Chem 7: 05/08/19 05:14 05/08/19 05:14
[2019-05-09] MEDS ORDERED: VERSED ONE (09:59)
[2019-05-09] MEDS ORDERED: NON-FORMULARY (Simvastatin [Simvastatin] 10 MG) PO SCH (10:00)
[2019-05-09] MEDS ORDERED: DIPRIVAN 10 MG/ML IV ONE (10:00)
[2019-05-09] MEDS ORDERED: SUBLIMAZE ONE (10:00)
[2019-05-09] MEDS ORDERED: XYLOCAINE MPF 2% ONE (10:02)
[2019-05-09] MEDS ORDERED: XYLOCAINE 1% 20 mL ONE (10:17)
[2019-05-09] MEDS ORDERED: MARCAINE 0.5% INFILTRATI ONE ×2 (10:18→10:20)
[2019-05-09] MEDS ORDERED: XYLOCAINE 1% 20 mL INFILTRATI ONE (10:20)
[2019-05-09] MEDS ORDERED: SUBLIMAZE IV PRN (10:28)
[2019-05-09] MEDS ORDERED: ZOFRAN IV PRN (10:28)
--- NOTE | 2019-05-09 10:30 | Anesthesia Day of Surgery ---
Anesthesia Day of Surgery - Day of Surgery Patient Examined: Yes Patient H&P Reviewed: Yes Patient is NPO: Yes
[2019-05-09] MEDS ORDERED: DILAUDID ONE (10:58)
--- NOTE | 2019-05-09 11:19 | Post Operative Note ---
Date of procedure: 05/09/19 Pre-op diagnosis: perirectal wound, abscess Post-op diagnosis: other (chronic perirectal wound, thrombosed external hemorrhoid) Findings: 1. chronic perirectal wound with tunneling to two adjacent wounds. Unroofed wounds by removing skin. Chronic granulation tissue, no pus 2. Fluctuant area outside of rectum - thrombosed internal hemorrhoid Procedure: 1. excisional debridement of chronic perirectal wound 2. incision and drainage of thrombosed external hemorrhoid Anesthesia: MAC, local Surgeon: VIANNEY STOKES Estimated blood loss: minimal Pathology: list (1. tissue cultures from perirectal wound) Specimen disposition: to lab Condition: stable Disposition: PACU
[2019-05-09] MEDS ORDERED: DILAUDID IV PRN (11:23)
[2019-05-09] MEDS ORDERED: PERCOCET 5/325 PO PRN (12:08)
[2019-05-09] MEDS ORDERED: ROXICODONE PO PRN (12:09)
--- NOTE | 2019-05-09 12:53 | Progress Note ---
Assessment and Plan Assessment and plan: 48 yo F PMHx GERD, HTN, HLD, previous osteomyelitis and remberto-rectal abscess that was intially drained in January and subsequent non-healing wound. 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 Cultures at that time grew MRSA and she was given linezolid after having I&D of the abscess. During subsequent visits to the ED her wound was cultured and grew: 04/11/19: Proteus, Raoultella, Kleb pneumoniae and oxytoca, group G Strep 03/16: Proteus, E coli, Group F Strep. Cellulitis and abscess of buttock/sepsis IV antibiotic therapy, wound care consulted, sp debridement of perirectal wound and removal of thrombosed hemorrhoids on 05/09 -fup deep surgical cultures HTN (hypertension) monitor bp q shift, continue medical management. HLD (hyperlipidemia) Statin therapy, low cholesterol diet, supportive care. DVT prophylaxis SCD to BLE while in bed, History Interval history: no fevers complaining of perirectal pain no vomiting no cough no diarrhea Hospitalist Physical - Physical exam Narrative exam: General appearance: Present: mild distress - EENT Eyes: Present: PERRL ENT: hearing intact, dentition normal (gold teeth caps) - Neck Neck: Present: supple - Respiratory Respiratory effort: normal Respiratory: bilateral: CTA - Cardiovascular Rhythm: regular Heart Sounds: Present: S1 & S2 - Extremities Extremities: no ischemia Peripheral Pulses: within normal limits - Abdominal General gastrointestinal: soft, non-tender - Integumentary Integumentary: Present: clear, warm, dry, remberto-rectal dressing not removed - Psychiatric Psychiatric: appropriate mood/affect, intact judgment & insight - Neurologic Neurologic: CNII-XII intact, moves all extremities - Constitutional Vitals: Temp Pulse Resp BP Pulse Ox 97.4 F L 74 16 96/59 97 05/09/19 11:12 05/09/19 11:52 05/09/19 11:48 05/09/19 11:52 05/09/19 11:52 Results - Labs CBC & Chem 7: 05/08/19 05:14 05/08/19 05:14 Labs: Laboratory Last Values WBC 5.8 K/mm3 (4.5-11.0) 05/08/19 05:14 RBC 3.68 M/mm3 (3.65-5.03) 05/08/19 05:14 Hgb 10.6 gm/dl (10.1-14.3) 05/08/19 05:14 Hct 31.2 % (30.3-42.9) 05/08/19 05:14 MCV 85 fl (79-97) 05/08/19 05:14 MCH 29 pg (28-32) 05/08/19 05:14 MCHC 34 % (30-34) 05/08/19 05:14 RDW 14.7 % (13.2-15.2) 05/08/19 05:14 Plt Count 442 K/mm3 (140-440) H 05/08/19 05:14 Lymph % (Auto) 38.5 % (13.4-35.0) H 05/08/19 05:14 [place] % (Auto) 10.5 % (0.0-7.3) H 05/08/19 05:14 Eos % (Auto) 1.5 % (0.0-4.3) 05/08/19 05:14 Baso % (Auto) 1.2 % (0.0-1.8) 05/08/19 05:14 Lymph # 2.2 K/mm3 (1.2-5.4) 05/08/19 05:14 [place] # 0.6 K/mm3 (0.0-0.8) 05/08/19 05:14 Eos # 0.1 K/mm3 (0.0-0.4) 05/08/19 05:14 Baso # 0.1 K/mm3 (0.0-0.1) 05/08/19 05:14 Seg Neutrophils % 48.3 % (40.0-70.0) 05/08/19 05:14 Seg Neutrophils # 2.8 K/mm3 (1.8-7.7) 05/08/19 05:14 APTT 34.9 Sec. (24.2-36.6) 05/07/19 15:29 Sodium 144 mmol/L (137-145) 05/08/19 05:14 Potassium 4.4 mmol/L (3.6-5.0) 05/08/19 05:14 Chloride 104.7 mmol/L (98-107) 05/08/19 05:14 Carbon Dioxide 31 mmol/L (22-30) H 05/08/19 05:14 13 mmol/L 05/08/19 05:14 BUN 6 mg/dL (7-17) L 05/08/19 05:14 0.6 mg/dL (0.7-1.2) L 05/08/19 05:14 Estimated GFR > 60 ml/min 05/08/19 05:14 10 % 05/08/19 05:14 Glucose 85 mg/dL (65-100) 05/08/19 05:14 Lactic Acid 1.00 mmol/L (0.7-2.0) 05/07/19 19:09 Calcium 9.4 mg/dL (8.4-10.2) 05/08/19 05:14 < 0.20 mg/dL (0.1-1.2) 05/08/19 05:14 AST 14 units/L (5-40) 05/08/19 05:14 ALT 10 units/L (7-56) 05/08/19 05:14 77 units/L (35-129) 05/08/19 05:14 7.5 g/dL (6.3-8.2) 05/08/19 05:14 3.6 g/dL (3.9-5) L 05/08/19 05:14 0.9 % 05/08/19 05:14 Yellow (Yellow) 05/07/19 17:15 Cloudy (Clear) 05/07/19 17:15 6.0 (5.0-7.0) 05/07/19 17:15 Ur Specific [place] 1.006 (1.003-1.030) 05/07/19 17:15 <15 mg/dl mg/dL (Negative) 05/07/19 17:15 Neg mg/dL (Negative) 05/07/19 17:15 Neg mg/dL (Negative) 05/07/19 17:15 Lg (Negative) 05/07/19 17:15 Neg (Negative) 05/07/19 17:15 Neg (Negative) 05/07/19 17:15 < 2.0 mg/dL (<2.0) 05/07/19 17:15 Ur Leukocyte Esterase Lg (Negative) 05/07/19 17:15 76.0 /HPF (0.0-6.0) H 05/07/19 17:15 27.0 /HPF (0.0-6.0) 05/07/19 17:15 U Epithel Cells (Auto) 3.0 /HPF (0-13.0) 05/07/19 17:15 Amorphous Crystals Few 05/07/19 17:15 Few /HPF 05/07/19 17:15 Active Medications - Current Medications Current Medications: Generic Name Dose Route Start Last Admin Trade Name Freq PRN Reason Stop Dose Admin Acetaminophen 650 mg 05/07/19 15:39 Tylenol PO Q4H PRN Pain MILD(1-3)/Fever >100.5/BURCIAGA Albuterol 2.5 mg 05/07/19 15:39 Proventil IH Q4HRT PRN Shortness Of Breath Cyclobenzaprine HCl 10 mg 05/08/19 21:40 05/08/19 22:50 Flexeril PO 10 mg TID PRN Administration Muscle Spasm Fentanyl 50 mcg 05/09/19 10:28 Sublimaze IV 05/09/19 20:00 Q5MIN PRN Pain , Severe (7-10) Hydromorphone HCl 0.5 mg 05/08/19 15:04 05/09/19 09:18 Dilaudid IV 0.5 mg Q3H PRN Administration Pain , Severe (7-10) Hydromorphone HCl 0.5 mg 05/09/19 11:23 05/09/19 10:47 Dilaudid IV 05/09/19 16:00 0.5 mg Q10M PRN Administration Pain , Severe (7-10) Linezolid 600 mg in 300 mls @ 300 mls/hr 05/07/19 22:00 05/09/19 09:11 Zyvox 600mg/300ml IV 300 mls/hr Q12HR JASON Administration Protocol Aztreonam 2 gm in 100 mls @ 100 mls/hr 05/09/19 00:00 05/09/19 07:51 Azactam/Ns 2 Gm/100 Ml IV 100 mls/hr Q8H JASON Administration Protocol Metronidazole 500 mg 05/08/19 22:00 05/09/19 05:09 Flagyl PO Not Given Q8HR [facility] Protocol Ondansetron HCl 4 mg 05/07/19 15:39 05/08/19 20:53 Zofran IV 4 mg Q8H PRN Administration Nausea And Vomiting Ondansetron HCl 4 mg 05/09/19 10:28 Zofran IV ONCE PRN Nausea And Vomiting Oxycodone HCl 5 mg 05/09/19 12:09 Roxicodone PO BID PRN Pain, Moderate (4-6) Oxycodone/Acetaminophen 2 tab 05/08/19 10:05 Percocet 5/325 PO Q6H PRN Pain, Moderate (4-6) Oxycodone/Acetaminophen 1 tab 05/09/19 12:08 Percocet 5/325 PO BID PRN Pain, Moderate (4-6) Pravastatin Sodium 20 mg 05/09/19 10:00 Pravachol PO QDAY JASON Sodium Chloride 10 ml 05/07/19 22:00 05/09/19 00:01 Sodium Chloride Flush Syringe 10 Ml IV 10 ml BID JASON Administration Sodium Chloride 10 ml 05/07/19 15:39 Sodium Chloride Flush Syringe 10 Ml IV PRN PRN LINE FLUSH Nutrition/Malnutrition Assess - Dietary Evaluation Nutrition/Malnutrition Findings: Nutrition Notes Start: 05/08/19 14:58 Freq: Status: Active Protocol: Document 05/08/19 14:59 RM (Rec: 05/08/19 15:04 RM [id number]) Nutrition Notes 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 No evidence of PEG in record. Pt did not know what a PEG is when asked. 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 Admitted to nausea here but no vomiting. Declined ONS d/t taste. 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 No Is Patient Ambulatory and/or Out of Bed No REE-([facility]-confined to bed) [phone] Calculation Used for Recommendations [place] Additional Notes Protein Needs: 86-107g (1.2-1. 5g/kg) Fluid Needs: 1 ml/kcal Nutrition Intervention Change Diet Order: Advance diet when medically able Goal #1 Diet advancement Anticipated Discharge Needs: Unable to determine at this time Follow-Up By: 05/12/19 Additional Comments Follow for diet advancement, PO intakes
[2019-05-09] MEDS: PRAVACHOL PO SCH (13:10)
[2019-05-09] MEDS: ZOFRAN IV PRN ×2 (13:14→20:59)
--- NOTE | 2019-05-09 13:20 | Event Note ---
Date: 05/09/19 Followed up with patient post op. She is doing well. Discussed findings of surgery and plan. I explained in detail that she will need to have aggressive wound care. For thrombosed hemorrhoid, she will need to start sitz baths tomorrow and perform them after every bowel movement, at least 3 times per day. We will try to keep her pain controlled but I explained that no matter what pain medication she received we will never be able to completely eliminate the pain. She has been on chronic narcotic medications for some time and that impacts her tolerance. At this time she will be on percocet 10-325mg PO every 4 hours as needed (home med), toradol 30mg Iv q8h, and morphine IV as needed for severe pain (7-10/10) not controlled by the other medications. In addition sitz baths and ice pack should help with the inflammatory pain. I explained to her that she cannot get IV narcotics exclusively because we need to get her on a pain regimen that she can be discharged on when ready. I explained plan to patient' over the telephone as well as findings in surgery.
--- NOTE | 2019-05-09 14:35 | Operative Report ---
PREOPERATIVE DIAGNOSIS: Perirectal wound and abscess. POSTOPERATIVE DIAGNOSIS: Chronic perirectal wound, thrombosed external hemorrhoid. FINDINGS: 1. Chronic perirectal wound with tunneling to two adjacent wounds. This was unroofed by removing the skin. There was chronic granulation tissue and no pus. 2. Fluctuant area outside of the rectum consistent with a thrombosed external hemorrhoid. PROCEDURE: 1. Excisional debridement of chronic perirectal wound. 2. Incision and drainage of thrombosed external hemorrhoid. ANESTHESIA: MAC local. SURGEON: Mable Hughes DO. ESTIMATED BLOOD LOSS: Minimal. PATHOLOGY: Tissue cultures from perirectal wound. SPECIMEN DISPOSITION: To lab. CONDITION DISPOSITION: The patient is stable to PACU. HISTORY OF PRESENT ILLNESS AND INDICATION: The patient is a 48-year-old female with a history of a perirectal abscess, which was drained back in 01/2019. Despite multiple visits to the Emergency Room and recommendation for outpatient followup, the patient failed to follow up and she presented back to the Emergency Room with pain in the rectal area. She says that this pain has been ongoing since the drainage of the wound. She also complains of a foul smelling discharge from the wound. Upon examination, the wound had significantly deteriorated and it was recommended the patient to the operating room for further debridement. I discussed all risks, benefits and alternatives to surgery with the patient and consent obtained. All questions were answered. PROCEDURE IN DETAIL: The patient was identified in the preoperative area and brought back to the operating room. She was placed in right lateral decubitus position and the right buttock retracted with tape. The wound was located in the left perirectal area. The area was prepped and draped in the usual sterile fashion and timeout performed. Upon examination of the rectum, the patient did have a small fluctuant area just outside of the rectum in the 2 o'clock position. This was anesthetized with local anesthetic and a small incision was made in the center of the fluctuant area using a #11 blade. Blood clots were evacuated from this. This was consistent with a thrombosed external hemorrhoid. After drainage, the skin was flat and no longer fluctuant. I then turned my attention to the left-sided perirectal wound. The patient's original wound located inferiorly was also tunneled to two other wounds that were superior to this. The skin overlying all three wounds was thin and showed signs of deep tissue injury; and therefore, all three wounds were unroofed by excising the skin using a #15 blade. Once the skin was excised, the wound was debrided using a curette until all chronic granulation tissue was removed. The wound bed was healthy and red. There was no drainage of pus. The wound did not connect to the rectum. The wound was irrigated with saline and hemostasis ensured. The wound was then packed with 1 piece of saline moistened gauze and covered with a 4 x 4 gauze, ABD pad, and Medipore tape. At the end of the case, all sponge, instrument, sharp counts were correct x 2. The patient was awoken from anesthesia and taken to PACU in stable condition. The wound measurement at the end of the case was 7 cm x 3 cm x 0.2 cm. JOB# [id number] QUIRINO/RADAMES
[2019-05-10] MEDS: DILAUDID IV PRN ×7 (03:27→21:11)
[2019-05-10] MEDS: ZOFRAN IV PRN (03:27)
[2019-05-10] MEDS: FLAGYL PO SCH ×3 (05:22→21:13)
[2019-05-10] MEDS: AZACTAM/NS 2 GM/100 ML 2 GM/100 ML VIAL IV SCH ×2 (09:27→14:59)
[2019-05-10] MEDS: SODIUM CHLORIDE FLUSH SYRINGE 10 ML IV SCH ×2 (10:40→21:14)
[2019-05-10] MEDS: ZYVOX 600MG/300ML 600 MG/300 ML BAG IV SCH ×2 (10:40→21:13)
[2019-05-10] MEDS: PRAVACHOL PO SCH (10:40)
--- NOTE | 2019-05-11 00:11 | Progress Note ---
Assessment and Plan Assessment and plan: 48 yo F PMHx GERD, HTN, HLD, previous osteomyelitis and remberto-rectal abscess that was intially drained in January and subsequent non-healing wound. 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 Cultures at that time grew MRSA and she was given linezolid after having I&D of the abscess. During subsequent visits to the ED her wound was cultured and grew: 04/11/19: Proteus, Raoultella, Kleb pneumoniae and oxytoca, group G Strep 03/16: Proteus, E coli, Group F Strep. Cellulitis and abscess of buttock/sepsis IV antibiotic therapy, wound care consulted, sp debridement of perirectal wound and removal of thrombosed hemorrhoids on 05/09 -fup deep surgical cultures HTN (hypertension) monitor bp q shift, continue medical management. HLD (hyperlipidemia) Statin therapy, low cholesterol diet, supportive care. DVT prophylaxis SCD to BLE while in bed, History Interval history: no fevers complaining of perirectal pain no vomiting no cough no diarrhea Hospitalist Physical - Physical exam Narrative exam: General appearance: Present: mild distress - EENT Eyes: Present: PERRL ENT: hearing intact, dentition normal (gold teeth caps) - Neck Neck: Present: supple - Respiratory Respiratory effort: normal Respiratory: bilateral: CTA - Cardiovascular Rhythm: regular Heart Sounds: Present: S1 & S2 - Extremities Extremities: no ischemia Peripheral Pulses: within normal limits - Abdominal General gastrointestinal: soft, non-tender - Integumentary Integumentary: Present: clear, warm, dry, remberto-rectal dressing not removed - Psychiatric Psychiatric: appropriate mood/affect, intact judgment & insight - Neurologic Neurologic: CNII-XII intact, moves all extremities - Constitutional Vitals: Temp Pulse Resp BP Pulse Ox 98.0 F 119 H 16 119/77 93 05/10/19 12:55 05/10/19 12:55 05/10/19 12:55 05/10/19 12:55 05/10/19 12:55 General appearance: Present: mild distress Results - Labs CBC & Chem 7: 05/08/19 05:14 05/08/19 05:14 Labs: Laboratory Last Values WBC 5.8 K/mm3 (4.5-11.0) 05/08/19 05:14 RBC 3.68 M/mm3 (3.65-5.03) 05/08/19 05:14 Hgb 10.6 gm/dl (10.1-14.3) 05/08/19 05:14 Hct 31.2 % (30.3-42.9) 05/08/19 05:14 MCV 85 fl (79-97) 05/08/19 05:14 MCH 29 pg (28-32) 05/08/19 05:14 MCHC 34 % (30-34) 05/08/19 05:14 RDW 14.7 % (13.2-15.2) 05/08/19 05:14 Plt Count 442 K/mm3 (140-440) H 05/08/19 05:14 Lymph % (Auto) 38.5 % (13.4-35.0) H 05/08/19 05:14 [place] % (Auto) 10.5 % (0.0-7.3) H 05/08/19 05:14 Eos % (Auto) 1.5 % (0.0-4.3) 05/08/19 05:14 Baso % (Auto) 1.2 % (0.0-1.8) 05/08/19 05:14 Lymph # 2.2 K/mm3 (1.2-5.4) 05/08/19 05:14 [place] # 0.6 K/mm3 (0.0-0.8) 05/08/19 05:14 Eos # 0.1 K/mm3 (0.0-0.4) 05/08/19 05:14 Baso # 0.1 K/mm3 (0.0-0.1) 05/08/19 05:14 Seg Neutrophils % 48.3 % (40.0-70.0) 05/08/19 05:14 Seg Neutrophils # 2.8 K/mm3 (1.8-7.7) 05/08/19 05:14 APTT 34.9 Sec. (24.2-36.6) 05/07/19 15:29 Sodium 144 mmol/L (137-145) 05/08/19 05:14 Potassium 4.4 mmol/L (3.6-5.0) 05/08/19 05:14 Chloride 104.7 mmol/L (98-107) 05/08/19 05:14 Carbon Dioxide 31 mmol/L (22-30) H 05/08/19 05:14 13 mmol/L 05/08/19 05:14 BUN 6 mg/dL (7-17) L 05/08/19 05:14 0.6 mg/dL (0.7-1.2) L 05/08/19 05:14 Estimated GFR > 60 ml/min 05/08/19 05:14 10 % 05/08/19 05:14 Glucose 85 mg/dL (65-100) 05/08/19 05:14 Lactic Acid 1.00 mmol/L (0.7-2.0) 05/07/19 19:09 Calcium 9.4 mg/dL (8.4-10.2) 05/08/19 05:14 < 0.20 mg/dL (0.1-1.2) 05/08/19 05:14 AST 14 units/L (5-40) 05/08/19 05:14 ALT 10 units/L (7-56) 05/08/19 05:14 77 units/L (35-129) 05/08/19 05:14 7.5 g/dL (6.3-8.2) 05/08/19 05:14 3.6 g/dL (3.9-5) L 05/08/19 05:14 0.9 % 05/08/19 05:14 Yellow (Yellow) 05/07/19 17:15 Cloudy (Clear) 05/07/19 17:15 6.0 (5.0-7.0) 05/07/19 17:15 Ur Specific [place] 1.006 (1.003-1.030) 05/07/19 17:15 <15 mg/dl mg/dL (Negative) 05/07/19 17:15 Neg mg/dL (Negative) 05/07/19 17:15 Neg mg/dL (Negative) 05/07/19 17:15 Lg (Negative) 05/07/19 17:15 Neg (Negative) 05/07/19 17:15 Neg (Negative) 05/07/19 17:15 < 2.0 mg/dL (<2.0) 05/07/19 17:15 Ur Leukocyte Esterase Lg (Negative) 05/07/19 17:15 76.0 /HPF (0.0-6.0) H 05/07/19 17:15 27.0 /HPF (0.0-6.0) 05/07/19 17:15 U Epithel Cells (Auto) 3.0 /HPF (0-13.0) 05/07/19 17:15 Amorphous Crystals Few 05/07/19 17:15 Few /HPF 05/07/19 17:15 Active Medications - Current Medications Current Medications: Generic Name Dose Route Start Last Admin Trade Name Freq PRN Reason Stop Dose Admin Acetaminophen 650 mg 05/07/19 15:39 Tylenol PO Q4H PRN Pain MILD(1-3)/Fever >100.5/[place]CIAGA Albuterol 2.5 mg 05/07/19 15:39 Proventil IH Q4HRT PRN Shortness Of Breath Cyclobenzaprine HCl 10 mg 05/08/19 21:40 05/08/19 22:50 Flexeril PO 10 mg TID PRN Administration Muscle Spasm Hydromorphone HCl 1 mg 05/09/19 15:31 05/10/19 21:11 Dilaudid IV 1 mg Q3H PRN Administration Pain , Severe (7-10) Linezolid 600 mg in 300 mls @ 300 mls/hr 05/07/19 22:00 05/10/19 21:13 Zyvox 600mg/300ml IV 300 mls/hr Q12HR JASON Administration Protocol Aztreonam 2 gm in 100 mls @ 100 mls/hr 05/09/19 00:00 05/10/19 14:59 Azactam/Ns 2 Gm/100 Ml IV 100 mls/hr Q8H JASON Administration Protocol Metronidazole 500 mg 05/08/19 22:00 05/10/19 21:13 Flagyl PO 500 mg Q8HR JASON Administration Protocol Ondansetron HCl 4 mg 05/07/19 15:39 05/10/19 03:27 Zofran IV 4 mg Q8H PRN Administration Nausea And Vomiting Ondansetron HCl 4 mg 05/09/19 10:28 Zofran IV ONCE PRN Nausea And Vomiting Oxycodone/Acetaminophen 2 tab 05/08/19 10:05 05/09/19 13:10 Percocet 5/325 PO 2 tab Q6H PRN Administration Pain, Moderate (4-6) Pravastatin Sodium 20 mg 05/09/19 10:00 05/10/19 10:40 Pravachol PO 20 mg QDAY JASON Administration Sodium Chloride 10 ml 05/07/19 22:00 05/10/19 21:14 Sodium Chloride Flush Syringe 10 Ml IV 10 ml BID JASON Administration Sodium Chloride 10 ml 05/07/19 15:39 Sodium Chloride Flush Syringe 10 Ml IV PRN PRN LINE FLUSH Nutrition/Malnutrition Assess - Dietary Evaluation Nutrition/Malnutrition Findings: Nutrition Notes Start: 05/08/19 14:58 Freq: Status: Active Protocol: Document 05/08/19 14:59 RM (Rec: 05/08/19 15:04 RM [id number]) Nutrition Notes 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 No evidence of PEG in record. Pt did not know what a PEG is when asked. 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 Admitted to nausea here but no vomiting. Declined ONS d/t taste. 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 No Is Patient Ambulatory and/or Out of Bed No REE-([place]-confined to bed) [phone] Calculation Used for Recommendations [place] Additional Notes Protein Needs: 86-107g (1.2-1. 5g/kg) Fluid Needs: 1 ml/kcal Nutrition Intervention Change Diet Order: Advance diet when medically able Goal #1 Diet advancement Anticipated Discharge Needs: Unable to determine at this time Follow-Up By: 05/12/19 Additional Comments Follow for diet advancement, PO intakes
[2019-05-11] MEDS: DILAUDID IV PRN ×8 (00:17→21:09)
[2019-05-11] MEDS: FLAGYL PO SCH ×4 (05:23→21:09)
[2019-05-11] MEDS: AZACTAM/NS 2 GM/100 ML 2 GM/100 ML VIAL IV SCH ×3 (08:00→15:03)
[2019-05-11] MEDS: ZYVOX 600MG/300ML 600 MG/300 ML BAG IV SCH (09:21)
[2019-05-11] MEDS: PRAVACHOL PO SCH (09:21)
--- NOTE | 2019-05-11 14:14 | Progress Note ---
Assessment and Plan Cultures: 05/07 BCx - NGTD 05/07 Urine- 10-100K of mixed >2 organisms 05/07 MRSA PCR neg 05/09 Surgical Biopsy Rectum: Usual skin digna Previous wound Cx: 04/11/19: Proteus, Raoultella, Kleb pneumoniae and oxytoca, group G Strep 03/16: Proteus, E coli, Group F Strep. 01/2019 - MRSA A/P: 48 yo F PMHx GERD, HTN, HLD, previous osteomyelitis and remberto-rectal abscess admitted with worsening drainage and pain from gluteal wound. 1. Infected gluteal wound - S/p excisional debridement of chronic perirectal wound. Incision and drainage of thrombosed external hemorrhoid. On aztreonam, metronidazole and linezolid. 2. Thrombocytosis: from #1 3. Allergies- PCN. Vancomycin: anaphylactic allergy to penicillins, as such I am not willing to risk a cross-reaction with cephalosporins, despite the very low rates of cross-reactivity. 4. Diarrhea: resolved 5. Non-compliance with instructions and clinic appointments Recs: - stop linezolid, D5 (wound cx neg for MRSA and MRSA PCR neg) - continue aztreonam 2g q8h, D4 - continue metronidazole 500mg q8h, D4 - aggressive wound and hemorrhoidal care per surgery - Ok to d/c home on levaquin 750 mg po qday total 10 days until 05/17/2019 - educated about importance of ID clinic f/u Dr. Reynoso will round on Sunday. Tasia Dixon MD [facility] ([facility]) Office [phone] Subjective Date of service: 05/11/19 Principal diagnosis: left gluteal wound Interval history: Patient feels better, no fever, still mild left gluteal pain, family at bedside/ Objective - Exam Narrative Exam: Constitutional: alert in NAD pleasant Head, Ears, Nose: Normocephalic, atraumatic. External ears, nose normal Eyes: Conjunctivae/corneas clear. No icterus. No ptosis. Neck: Supple, no meningeal signs Oral: fair dentition, moist mucous membranes Cardiovascular: S1, S2 normal. Normal rhythm Respiratory: Good air entry, clear to auscultation bilaterally GI: Soft, non-tender; bowel sounds normal. No peritoneal signs Musculoskeletal: No pedal edema. Wound on Left medial gluteal cleft margin no drainage no induration Skin: No rash or abscess Hem/Lymphatic: No palpable cervical or supraclavicular nodes. No lymphangitis Psych: no agitation Neurological: Moves all extremities, no focal defects - Constitutional Vitals: Vital Signs Temp Pulse Resp BP Pulse Ox 98.0 F 99 H 18 127/59 96 05/11/19 12:33 05/11/19 12:33 05/11/19 12:33 05/11/19 12:33 05/11/19 12:33 Temperature -Last 24 Hours Temperature 98.0 F Temperature 98.9 F Temperature 98.1 F Temperature 98.7 F - Labs CBC & Chem 7: 05/08/19 05:14 05/08/19 05:14
[2019-05-11] MEDS: SODIUM CHLORIDE FLUSH SYRINGE 10 ML IV SCH (14:46)
--- NOTE | 2019-05-11 16:16 | Progress Note ---
Assessment and Plan Assessment and plan: 48 yo F PMHx GERD, HTN, HLD, previous osteomyelitis and remberto-rectal abscess that was intially drained in January and subsequent non-healing wound. 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 Cultures at that time grew MRSA and she was given linezolid after having I&D of the abscess. During subsequent visits to the ED her wound was cultured and grew: 04/11/19: Proteus, Raoultella, Kleb pneumoniae and oxytoca, group G Strep 03/16: Proteus, E coli, Group F Strep. Cellulitis and abscess of buttock/sepsis IV antibiotic therapy, wound care consulted, sp debridement of perirectal wound and removal of thrombosed hemorrhoids on 05/09 -fup deep surgical cultures HTN (hypertension) monitor bp q shift, continue medical management. HLD (hyperlipidemia) Statin therapy, low cholesterol diet, supportive care. DVT prophylaxis SCD to BLE while in bed, History Interval history: no fevers complaining of perirectal pain no vomiting no cough no diarrhea Hospitalist Physical - Physical exam Narrative exam: General appearance: Present: mild distress - EENT Eyes: Present: PERRL ENT: hearing intact, dentition normal (gold teeth caps) - Neck Neck: Present: supple - Respiratory Respiratory effort: normal Respiratory: bilateral: CTA - Cardiovascular Rhythm: regular Heart Sounds: Present: S1 & S2 - Extremities Extremities: no ischemia Peripheral Pulses: within normal limits - Abdominal General gastrointestinal: soft, non-tender - Integumentary Integumentary: Present: clear, warm, dry, remberto-rectal dressing not removed - Psychiatric Psychiatric: appropriate mood/affect, intact judgment & insight - Neurologic Neurologic: CNII-XII intact, moves all extremities - Constitutional Vitals: Temp Pulse Resp BP Pulse Ox 98.0 F 99 H 18 127/59 96 05/11/19 12:33 05/11/19 12:33 05/11/19 12:33 05/11/19 12:33 05/11/19 12:33 General appearance: Present: mild distress Results - Labs CBC & Chem 7: 05/08/19 05:14 05/08/19 05:14 Labs: Laboratory Last Values WBC 5.8 K/mm3 (4.5-11.0) 05/08/19 05:14 RBC 3.68 M/mm3 (3.65-5.03) 05/08/19 05:14 Hgb 10.6 gm/dl (10.1-14.3) 05/08/19 05:14 Hct 31.2 % (30.3-42.9) 05/08/19 05:14 MCV 85 fl (79-97) 05/08/19 05:14 MCH 29 pg (28-32) 05/08/19 05:14 MCHC 34 % (30-34) 05/08/19 05:14 RDW 14.7 % (13.2-15.2) 05/08/19 05:14 Plt Count 442 K/mm3 (140-440) H 05/08/19 05:14 Lymph % (Auto) 38.5 % (13.4-35.0) H 05/08/19 05:14 [place] % (Auto) 10.5 % (0.0-7.3) H 05/08/19 05:14 Eos % (Auto) 1.5 % (0.0-4.3) 05/08/19 05:14 Baso % (Auto) 1.2 % (0.0-1.8) 05/08/19 05:14 Lymph # 2.2 K/mm3 (1.2-5.4) 05/08/19 05:14 [place] # 0.6 K/mm3 (0.0-0.8) 05/08/19 05:14 Eos # 0.1 K/mm3 (0.0-0.4) 05/08/19 05:14 Baso # 0.1 K/mm3 (0.0-0.1) 05/08/19 05:14 Seg Neutrophils % 48.3 % (40.0-70.0) 05/08/19 05:14 Seg Neutrophils # 2.8 K/mm3 (1.8-7.7) 05/08/19 05:14 APTT 34.9 Sec. (24.2-36.6) 05/07/19 15:29 Sodium 144 mmol/L (137-145) 05/08/19 05:14 Potassium 4.4 mmol/L (3.6-5.0) 05/08/19 05:14 Chloride 104.7 mmol/L (98-107) 05/08/19 05:14 Carbon Dioxide 31 mmol/L (22-30) H 05/08/19 05:14 13 mmol/L 05/08/19 05:14 BUN 6 mg/dL (7-17) L 05/08/19 05:14 0.6 mg/dL (0.7-1.2) L 05/08/19 05:14 Estimated GFR > 60 ml/min 05/08/19 05:14 10 % 05/08/19 05:14 Glucose 85 mg/dL (65-100) 05/08/19 05:14 Lactic Acid 1.00 mmol/L (0.7-2.0) 05/07/19 19:09 Calcium 9.4 mg/dL (8.4-10.2) 05/08/19 05:14 < 0.20 mg/dL (0.1-1.2) 05/08/19 05:14 AST 14 units/L (5-40) 05/08/19 05:14 ALT 10 units/L (7-56) 05/08/19 05:14 77 units/L (35-129) 05/08/19 05:14 7.5 g/dL (6.3-8.2) 05/08/19 05:14 3.6 g/dL (3.9-5) L 05/08/19 05:14 0.9 % 05/08/19 05:14 Yellow (Yellow) 05/07/19 17:15 Cloudy (Clear) 05/07/19 17:15 6.0 (5.0-7.0) 05/07/19 17:15 Ur Specific [place] 1.006 (1.003-1.030) 05/07/19 17:15 <15 mg/dl mg/dL (Negative) 05/07/19 17:15 Neg mg/dL (Negative) 05/07/19 17:15 Neg mg/dL (Negative) 05/07/19 17:15 Lg (Negative) 05/07/19 17:15 Neg (Negative) 05/07/19 17:15 Neg (Negative) 05/07/19 17:15 < 2.0 mg/dL (<2.0) 05/07/19 17:15 Ur Leukocyte Esterase Lg (Negative) 05/07/19 17:15 76.0 /HPF (0.0-6.0) H 05/07/19 17:15 27.0 /HPF (0.0-6.0) 05/07/19 17:15 U Epithel Cells (Auto) 3.0 /HPF (0-13.0) 05/07/19 17:15 Amorphous Crystals Few 05/07/19 17:15 Few /HPF 05/07/19 17:15 Active Medications - Current Medications Current Medications: Generic Name Dose Route Start Last Admin Trade Name Freq PRN Reason Stop Dose Admin Acetaminophen 650 mg 05/07/19 15:39 Tylenol PO Q4H PRN Pain MILD(1-3)/Fever >100.5/BURCIAGA Albuterol 2.5 mg 05/07/19 15:39 Proventil IH Q4HRT PRN Shortness Of Breath Cyclobenzaprine HCl 10 mg 05/08/19 21:40 05/08/19 22:50 Flexeril PO 10 mg TID PRN Administration Muscle Spasm Hydromorphone HCl 1 mg 05/09/19 15:31 05/11/19 15:03 Dilaudid IV 1 mg Q3H PRN Administration Pain , Severe (7-10) Aztreonam 2 gm in 100 mls @ 100 mls/hr 05/09/19 00:00 05/11/19 15:03 Azactam/Ns 2 Gm/100 Ml IV 100 mls/hr Q8H JASON Administration Protocol Metronidazole 500 mg 05/08/19 22:00 05/11/19 14:45 Flagyl PO 500 mg Q8HR JASON Administration Protocol Ondansetron HCl 4 mg 05/07/19 15:39 05/10/19 03:27 Zofran IV 4 mg Q8H PRN Administration Nausea And Vomiting Ondansetron HCl 4 mg 05/09/19 10:28 Zofran IV ONCE PRN Nausea And Vomiting Oxycodone/Acetaminophen 2 tab 05/08/19 10:05 05/09/19 13:10 Percocet 5/325 PO 2 tab Q6H PRN Administration Pain, Moderate (4-6) Pravastatin Sodium 20 mg 05/09/19 10:00 05/11/19 09:21 Pravachol PO 20 mg QDAY JASON Administration Sodium Chloride 10 ml 05/07/19 22:00 05/11/19 14:46 Sodium Chloride Flush Syringe 10 Ml IV 10 ml BID JASON Administration Sodium Chloride 10 ml 05/07/19 15:39 Sodium Chloride Flush Syringe 10 Ml IV PRN PRN LINE FLUSH Nutrition/Malnutrition Assess - Dietary Evaluation Nutrition/Malnutrition Findings: Nutrition Notes Start: 05/08/19 14:58 Freq: Status: Active Protocol: Document 05/08/19 14:59 RM (Rec: 05/08/19 15:04 RM [email or web address]) Nutrition Notes Need for 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 No evidence of PEG in record. Pt did not know what a PEG is when asked. 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 Admitted to nausea here but no vomiting. Declined ONS d/t taste. 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 No Is Patient Ambulatory and/or Out of Bed No [facility] [phone] Calculation Used for Recommendations [facility] Additional Notes Protein Needs: 86-107g (1.2-1. 5g/kg) Fluid Needs: 1 ml/kcal Nutrition Intervention Change Diet Order: Advance diet when medically able Goal #1 Diet advancement Anticipated Discharge Needs: Unable to determine at this time Follow-Up By: 05/12/19 Additional Comments Follow for diet advancement, PO intakes
[2019-05-11] MEDS ORDERED: RESTORIL PO PRN (18:18)
[2019-05-12] MEDS: DILAUDID IV PRN ×5 (00:27→12:28)
[2019-05-12] MEDS: AZACTAM/NS 2 GM/100 ML 2 GM/100 ML VIAL IV SCH ×3 (01:12→16:08)
[2019-05-12] MEDS: SODIUM CHLORIDE FLUSH SYRINGE 10 ML IV SCH ×2 (01:13→09:10)
[2019-05-12] MEDS: FLAGYL PO SCH ×2 (05:51→14:41)
[2019-05-12] MEDS: PRAVACHOL PO SCH (09:09)
--- NOTE | 2019-05-12 09:44 | Progress Note ---
Assessment and Plan Cultures: 05/07 BCx - NGTD 05/07 Urine- 10-100K of mixed >2 organisms 05/07 MRSA PCR neg 05/09 Surgical Biopsy Rectum: Usual skin digna Previous wound Cx: 04/11/19: Proteus, Raoultella, Kleb pneumoniae and oxytoca, group G Strep 03/16: Proteus, E coli, Group F Strep. 01/2019 - MRSA A/P: 48 yo F PMHx GERD, HTN, HLD, previous osteomyelitis and remberto-rectal abscess admitted with worsening drainage and pain from gluteal wound. 1. Infected gluteal wound - S/p excisional debridement of chronic perirectal wound. Incision and drainage of thrombosed external hemorrhoid. On aztreonam, metronidazole and linezolid. 2. Thrombocytosis: from #1 3. Allergies- PCN. Vancomycin: anaphylactic allergy to penicillins, as such I am not willing to risk a cross-reaction with cephalosporins, despite the very low rates of cross-reactivity. 4. Diarrhea: Improved 5. Non-compliance with instructions and clinic appointments Recs: - continue aztreonam 2g q8h, D5 - continue metronidazole 500mg q8h, D5 - aggressive wound and hemorrhoidal care per surgery - Ok to d/c home on levaquin 750 mg po qday total 10 days until 05/17/2019 - educated about importance of ID clinic f/u -follow-up ID clinic in 2 weeks (sent to [facility]) [facility] M: [phone] O:[phone] Subjective Date of service: 05/12/19 Principal diagnosis: left gluteal wound Interval history: Patient seen and examined. Reports improved gluteal pain and tenderness. No fevers. Objective - Exam Narrative Exam: Constitutional: Awake. Alert. No acute distress Head, Ears, Nose: Normocephalic, atraumatic. External ears, nose normal Eyes: Conjunctivae/corneas clear. No icterus. No ptosis. Neck: Supple, no meningeal signs Oral: fair dentition, moist mucous membranes Cardiovascular: S1, S2 normal. Normal rhythm Respiratory: Good air entry, clear to auscultation bilaterally GI: Soft, non-tender; bowel sounds normal. No peritoneal signs Musculoskeletal: No pedal edema. Wound on L medial gluteal cleft margin. Dressing c/d/I Skin: No rash or abscess Hem/Lymphatic: No palpable cervical or supraclavicular nodes. No lymphangitis Psych: no agitation Neurological: Moves all extremities, no focal defects - Constitutional Vitals: Vital Signs Temp Pulse Resp BP Pulse Ox 97.8 F 107 H 18 114/82 95 05/12/19 06:10 05/12/19 06:10 05/12/19 06:10 05/12/19 06:10 05/12/19 06:10 Temperature -Last 24 Hours Temperature 97.8 F Temperature 98.9 F Temperature 98.2 F Temperature 98.0 F - Labs CBC & Chem 7: 05/08/19 05:14 05/08/19 05:14
--- NOTE | 2019-05-12 12:42 | Discharge Summary ---
<PATY WHITTINGTON - Last Filed: 05/12/19 12:40> Providers - Providers Date of Admission: 05/07/19 15:39 Attending physician: PATY WHITTINGTON MD 05/08/19 10:49 Consult to Physician [CONS] Routine Comment: Consulting Provider: JORGE A MALLORY Physician Instructions: Reason For Exam: butt infection 05/08/19 15:05 Consult to Physician [CONS] Routine Comment: Consulting Provider: VIANNEY STOKES Physician Instructions: Reason For Exam: remberto-rectal abscess 05/09/19 13:30 Consult to Wound/ET Nurse [CONS] Routine Reason For Exam: wound eval - perirectal wound Primary care physician: LUCIEN MORGAN Hospitalization Condition: Fair Hospital course: 48 yo F PMHx GERD, HTN, HLD, previous osteomyelitis and remberto-rectal abscess that was intially drained in January and subsequent non-healing wound. 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 Cultures at that time grew MRSA and she was given linezolid after having I&D of the abscess. During subsequent visits to the ED her wound was cultured and grew: 04/11/19: Proteus, Raoultella, Kleb pneumoniae and oxytoca, group G Strep 03/16: Proteus, E coli, Group F Strep. Cellulitis and abscess of buttock/sepsis IV antibiotic therapy, wound care consulted, sp debridement of perirectal wound and removal of thrombosed hemorrhoids on 05/09 -fup deep surgical cultures HTN (hypertension) monitor bp q shift, continue medical management. HLD (hyperlipidemia) Statin therapy, low cholesterol diet, supportive care. DVT prophylaxis SCD to BLE while in bed, Disposition: - TO HOME OR SELFCARE Time spent for discharge: 33 mins Core Measure Documentation - Palliative Care Palliative Care/ Comfort Measures: Not Applicable - Core Measures Any of the following diagnoses?: none Exam - Constitutional Vitals: Temp Pulse Resp BP Pulse Ox 97.8 F 107 H 18 114/82 95 05/12/19 06:10 05/12/19 06:10 05/12/19 06:10 05/12/19 06:10 05/12/19 06:10 General appearance: Present: no acute distress, well-nourished - EENT Eyes: Present: PERRL ENT: hearing intact, clear oral mucosa - Neck Neck: Present: supple, normal ROM - Respiratory Respiratory effort: normal Respiratory: bilateral: CTA - Cardiovascular Heart Sounds: Present: S1 & S2. Absent: rub, click - Extremities Extremities: pulses symmetrical, No edema Peripheral Pulses: within normal limits - Abdominal General gastrointestinal: Present: soft, non-tender, non-distended, normal bowel sounds Female genitourinary: Present: normal - Integumentary Integumentary: Present: clear, warm, dry - Musculoskeletal Musculoskeletal: gait normal, strength equal bilaterally - Psychiatric Psychiatric: appropriate mood/affect, intact judgment & insight - Neurologic Neurologic: CNII-XII intact, moves all extremities Plan [facility] Days Prescriptions: Temazepam [Restoril] 15 mg PO QHS PRN #30 capsule PRN Reason: Sleep metroNIDAZOLE [Flagyl TAB] 500 mg PO Q8HR #18 tablet levoFLOXacin [Levaquin] 750 mg PO QDAY #7 tablet Oxycodone HCl/Acetaminophen [Percocet 10/325 mg] 1 each PO Q4H PRN #30 tablet PRN Reason: Pain <VIANNEY STOKES - Last Filed: 05/12/19 13:47> Providers - Providers Date of Admission: 05/07/19 15:39 Attending physician: PATY WHITTINGTON MD 05/08/19 10:49 Consult to Physician [CONS] Routine Comment: Consulting Provider: JORGE A MALLORY Physician Instructions: Reason For Exam: butt infection 05/08/19 15:05 Consult to Physician [CONS] Routine Comment: Consulting Provider: VIANNEY STOKES Physician Instructions: Reason For Exam: remberto-rectal abscess 05/09/19 13:30 Consult to Wound/ET Nurse [CONS] Routine Reason For Exam: wound eval - perirectal wound Primary care physician: LUCIEN MORGAN Exam - Constitutional Vitals: Temp Pulse Resp BP Pulse Ox 98.1 F 111 H 20 115/85 95 05/12/19 12:04 05/12/19 12:04 05/12/19 12:04 05/12/19 12:04 05/12/19 12:04 Plan Additional Instructions: Wound care center follow up on SundayMay [address] Stokes. [address] [place], [place] [phone]
[2019-05-12 13:20] VITALS: BP 115/85
--- NOTE | 2019-05-12 13:48 | Progress Note ---
Assessment and Plan 48 yo F s/p excisional debridement of chronic perirectal wound, incision and drainage of thrombosed external hemorrhoid POD 3 Plan: 1. abx per ID 2. local wound care as per construction assistant 3. dc sitz baths 4. prn pain control - outpatient follow up with established pain management physician 5. ok to dc fro, surgery standpoint. Appointment made for patient to follow up in wound care center on SundayMay 19 at 8 am. I discussed follow up plan with patient, her , and daughter at the bedside. D/W Dr. Callaway. Thank you, please call with questions. Subjective Date of service: 05/12/19 Narrative: Pt seen and examined. c/o pain near wound. No f/c. Doing sitz baths Objective Vital Signs - 12hr 05/12/19 05/12/19 06:10 12:04 Temperature 97.8 F 98.1 F Pulse Rate 107 H 111 H Respiratory 18 20 Rate Blood Pressure 114/82 115/85 O2 Sat by Pulse 95 95 Oximetry - General physical appearance Narrative Exam: Gen: AAOx3. NAD CV: S1, S2+ resp; even and unlabored Ext: no c/c/e Buttock: dressing c/d/i inpatient services director photo and notes reviewed - buttock wound is clean, dry, with pink wound bed, no drainage. - Labs 05/08/19 05:14 05/08/19 05:14
== END 2019-05-12 13:50 | disposition home health service (06) | DRG 854 ==
LOC: ED 11:48 → 3A 15:39
PROVIDERS: ADMIT Internal Medicine; ATTEND Internal Medicine
PROC: 0JB90ZZ Excision of Buttock Subcutaneous Tissue and Fascia, Open Approach (ICD-10-PCS; principal; 2019-05-09)
PROC: 06CY0ZZ Extirpation of Matter from Lower Vein, Open Approach (ICD-10-PCS; 2019-05-09)
DX: A41.9 Sepsis, unspecified organism (principal); L03.317 Cellulitis of buttock; K61.1 Rectal abscess; I10 Essential (primary) hypertension; E66.9 Obesity, unspecified; K64.5 Perianal venous thrombosis; K21.9 Gastro-esophageal reflux disease without esophagitis; G89.29 Other chronic pain; E78.2 Mixed hyperlipidemia; M19.90 Unspecified osteoarthritis, unspecified site; D47.3 Essential (hemorrhagic) thrombocythemia; Z88.6 Allergy status to analgesic agent; Z68.29 Body mass index [BMI] 29.0-29.9, adult; Z82.49 Family history of ischemic heart disease and other diseases of the circulatory system; Z88.0 Allergy status to penicillin; Z88.1 Allergy status to other antibiotic agents; Z88.8 Allergy status to other drugs, medicaments and biological substances; Z79.899 Other long term (current) drug therapy; Z83.3 Family history of diabetes mellitus; Z90.710 Acquired absence of both cervix and uterus
CPT/HCPCS: 36415; 71045; 80053; 81001; 82140; 85025; 85730; 87040; 87075; 87076; 87086; 87116; 87186; 94640; 94760; 96365; 96375; G0378; A9270-GY; J1170; J2020; J2250; J2270; J2405; J2704; J3010; J7030

== ENCOUNTER 2020-01-19 10:44 | Emergency (ER) | payer MEDICAID ==
[2020-01-19 10:53] VITALS: BP 125/85
--- NOTE | 2020-01-19 11:01 | Emergency Department Report ---
Chief Complaint: Urogenital-Female Stated Complaint: ABCESS /VAGINAL Time Seen by Provider: 01/19/20 10:59 - HPI History of Present Illness: vag cyst for months did not see obgyn no fever or chills - ROS Review of Systems: vag cyst no vag dc not ambulatory no fever or chills no cp no sob - Exam Vital Signs: Vital Signs 01/19/20 10:51 Temperature 98.0 F Pulse Rate 125 H Respiratory 18 Rate Blood Pressure 125/85 O2 Sat by Pulse 95 Oximetry HR on my exam 90 Physical Exam: a/o no focal deficit MSE screening note: Focused history and physical exam performed. Due to findings the following was ordered: Non med emergency MSE Patient discussed with doctor:: [facility] Disposition for MSE Condition: Stable
== END 2020-01-19 11:00 | disposition left against medical advice (07) ==
LOC: ED 10:44
DX: N90.7 Vulvar cyst (principal)
CPT/HCPCS: 99281

== ENCOUNTER 2020-02-02 19:35 | Emergency (ER) | payer MEDICAID ==
[2020-02-02 20:13] LABS: Basophils % (Auto) 0.7 % (0.0-1.8); Eosinophils # (Auto) 0.2 K/mm3 (0.0-0.4); Eosinophils % (Auto) 2.5 % (0.0-4.3); Hemoglobin 11.3 gm/dl (10.1-14.3); Lymphocytes # (Auto) 2.2 K/mm3 (1.2-5.4); Lymphocytes % (Auto) 33.9 % (13.4-35.0); Mean Corpuscular HGB Conc 33 % (30-34); Mean Corpuscular Volume 88 fl (79-97); Monocytes # (Auto) 0.8 K/mm3 (0.0-0.8); Monocytes % (Auto) 11.6 % (0.0-7.3); Platelet Count 449 K/mm3 (140-440); Red Blood Count 3.84 M/mm3 (3.65-5.03); Red Cell Distribution Width 13.8 % (13.2-15.2)
[2020-02-02 20:29] LABS: Alanine Aminotransferase 18 units/L (7-56); Albumin 4.2 g/dL (3.9-5); BUN/Creatinine Ratio 14; Blood Urea Nitrogen 10 mg/dL (7-17); Calcium 9.5 mg/dL (8.4-10.2); Hemolysis Index 7
[2020-02-02 20:36] LABS: Bacteria,Urine 1+ /HPF (Negative); Bilirubin,Urine NEG (Negative); Blood,Urine NEG (Negative); Color,Urine Yellow (Yellow); Mucus,Urine FEW /HPF; Protein,Urine <15 mg/dL mg/dL (Negative); Urobilinogen,Urine < 2.0 mg/dL (<2.0)
--- NOTE | 2020-02-02 20:41 | XRay Report ---
ABDOMEN 2 VIEW(S) INDICATION / CLINICAL INFORMATION: Abdominal and chest pain. COMPARISON: 03/16/19. FINDINGS: TUBES / LINES: None. BOWEL GAS PATTERN: There is a moderate amount of stool in the colon. I see no evidence of bowel obstr uction or mass effect. FREE AIR / EXTRALUMINAL GAS: None seen. ADDITIONAL FINDINGS: There is a bone island in the right ilium. There is mild spondylosis. IMPRESSION: No acute abnormality. Signer Name: Dmitriy Velez MD Signed: 02/02/2020 8:37 PM Workstation Name: [id number]
--- NOTE | 2020-02-02 20:42 | XRay Report ---
CHEST 2 VIEWS INDICATION / CLINICAL INFORMATION: Chest and abdominal pain. COMPARISON: 05/07/19. FINDINGS: SUPPORT DEVICES: None. HEART / MEDIASTINUM: The heart size and pulmonary vasculature are normal. LUNGS / PLEURA: No significant pulmonary or pleural abnormality. No pneumothorax. ADDITIONAL FINDINGS: No significant additional findings. IMPRESSION: No acute abnormality or significant change. Signer Name: Dmitriy Velez MD Signed: 02/02/2020 8:38 PM Workstation Name: [id number]
[2020-02-02] MEDS ORDERED: SODIUM CHLORIDE 0.9% 1000 ML 1,000 ML IV ONE (21:03)
[2020-02-02] MEDS ORDERED: ONDANSETRON 4 MG/2 ML INJ IV ONE (21:03)
[2020-02-02] MEDS ORDERED: MORPHINE 4 MG/1 ML INJ IV ONE ×2 (21:03→23:24)
--- NOTE | 2020-02-02 22:19 | Emergency Department Report ---
HPI - General Chief Complaint: Abdominal Pain Time Seen by Provider: 02/02/20 20:42 - HPI HPI: 49-year-old female presents to the emergency department with complaint of a 2 to 3-day history of generalized abdominal pain, bloating and distention. Patient s ays that she has pain with both urination and defecation. She also complains of some chest tightness with breathing. No chest pain at rest. She denies any fever, cough, nausea, vomiting. She has not taken anything for symptoms prior to presentation. Patient has a past medical history of arthritis, high cholesterol, spinal stenosis, previous perirectal abscess, and a few orthopedic surgeries including some infected hardware in the left lower leg. Regarding the patient's chest tightness, she had a negative stress test in November of last year. No recent travel or sick contacts at home. No known exposure to anyone with Covid 19. ED Past Medical Hx - Past Medical History Previous Medical History?: Yes Hx Hypertension: No Hx Heart Attack/AMI: No Hx Congestive Heart Failure: No Hx Diabetes: No Hx Deep Vein Thrombosis: No Hx Liver Disease: No Hx Renal Disease: No Hx Arthritis: Yes Hx Seizures: No Hx Asthma: No Hx COPD: No Hx HIV: No Additional medical history: chronic pain, hypercholesterolemia, sepsis in 2018, infected hardware in LLL removed 11/2018. spinal stenosis - Surgical History Past Surgical History?: Yes Hx Pacemaker: No Hx Internal Defibrillator: No Additional Surgical History: L leg fx repair. hyst. pelvic fx repair. Pt became septic due to infection caused by metal in LLL: removed early 2018 - Social History Smoking Status: Never Smoker Substance Use Type: None - Medications Home Medications: Home Medications Medication Instructions Recorded Confirmed Last Taken Type Cyclobenzaprine [Flexeril 10 MG 10 mg PO TID PRN 05/07/19 05/07/19 Unknown History TAB] Simvastatin 10 mg PO DAILY 05/07/19 05/07/19 Unknown History ALPRAZolam [Xanax TAB] 2 mg PO QHS PRN #15 tablet 05/12/19 Unknown Rx Oxycodone HCl/Acetaminophen 1 each PO Q4H PRN #30 tablet 05/12/19 Unknown Rx [Percocet 10/325 mg] levoFLOXacin [Levaquin] 750 mg PO QDAY #7 tablet 05/12/19 Unknown Rx Sulfamethoxazole/Trimethoprim 1 each PO BID #14 tablet 02/02/20 Unknown Rx [Bactrim DS TAB] ED Review of Systems ROS: Stated complaint: BACK PAIN ABD PAIN CHEST PAIN Other details as noted in HPI Comment: All other systems reviewed and negative Constitutional: denies: chills, fever Eyes: denies: eye pain, vision change ENT: denies: ear pain, throat pain Respiratory: denies: cough, shortness of breath Cardiovascular: chest pain. denies: palpitations Gastrointestinal: abdominal pain. denies: vomiting Genitourinary: denies: dysuria, discharge Musculoskeletal: denies: joint swelling, arthralgia Skin: denies: rash, lesions Neurological: denies: headache, weakness Physical Exam - Physical Exam Vital Signs: Vital Signs 02/02/20 02/02/20 19:39 22:04 Temperature 98.2 F Pulse Rate 134 H Respiratory 18 20 Rate Blood Pressure 127/79 O2 Sat by Pulse 94 Oximetry Physical Exam: GENERAL: The patient is well-developed well-nourished. HENT: Normocephalic. Atraumatic. Patient has moist mucous membranes. EYES: Extraocular motions are intact. NECK: Supple. Trachea is midline. CHEST/LUNGS: Clear to auscultation. There is no respiratory distress noted. HEART/CARDIOVASCULAR: Regular. There is no tachycardia. There is no murmur. ABDOMEN: Abdomen is soft. There is mild generalized abdominal tenderness to palpation. No guarding. Patient has normal bowel sounds. SKIN: Skin is warm and dry. There is a small area of erythema and a papule or pustule to the right buttock. No fluctuance at this time. NEURO: The patient is awake, alert, and oriented. The patient is cooperative. The patient has no focal neurologic deficits. Normal speech. MUSCULOSKELETAL: There is no tenderness or deformity. There is no evidence of acute injury. ED Course Vital Signs 02/02/20 02/02/20 19:39 22:04 Temperature 98.2 F Pulse Rate 134 H Respiratory 18 20 Rate Blood Pressure 127/79 O2 Sat by Pulse 94 Oximetry ED Medical Decision Making - Lab Data Result diagrams: 02/02/20 19:54 02/02/20 19:54 - EKG Data -: EKG Interpreted by Me EKG shows normal: sinus rhythm, axis, intervals, QRS complexes, ST-T waves Rate: tachycardia (123 bpm) - EKG Data When compared to previous EKG there are: no significant change Interpretation: unchanged when compared t (11/17/18) - Radiology Data Radiology results: report reviewed, image reviewed interpreted by me: Chest x-ray does not show any acute process. There are no pleural effusions, obvious pneumonia and there is no pneumothorax. Abdominal x-ray shows nonspecific nonobstructive bowel gas CT abdomen pelvis w con INDICATION: Right-sided abdominal pain. Nausea and vomiting.. TECHNIQUE: All CT scans at this location are performed using the following dose modulation technique: Automated exposure control. CONTRAST: Omnipaque 300, 100 cc IV injection. COMPARISON: None available. CT ABDOMEN: The parenchymal organs are unremarkable in appearance other than a 1 cm left renal cyst. Negative for abdominal mass, fluid or inflammation. The bowel is not dilated or thickened. CT PELVIS: Negative for pelvic mass, fluid or inflammation. The appendix is normal. Status post previous hysterectomy. IMPRESSION: Negative for obstruction or localized inflammation. - Medical Decision Making This patient presents to the emergency department with a 2 to 3-day history of some abdominal pain that she says radiates towards her back. She also has a complaint of some chest tightness with respirations. On examination the heart and lung sounds are normal to auscultation. She does not appear in any respiratory or acute distress. There is some mild generalized abdominal tenderness to palpation but the abdomen is soft, nondistended and nontoxic in appearance. Patient's labs have been mostly unremarkable except for slightly elevated lipase level. Chest x-ray did not show any pneumonia, pleural effusions, pneumothorax, or any other acute process. Patient had a CT scan of the abdomen and pelvis with IV contrast that does not show any abdominal or pelvic pathology. Patient had a negative d-dimer and therefore, along with a low Wells Score, is low suspicion for pulmonary embolism. Urinalysis does not show any urinary tract infection and the patient is not . The patient was given a few doses of IV fluid resuscitation and IV analgesia with improvement. She will be discharged home to follow-up with gastroenterology and primary care. I checked the [facility] prescription monitoring service and the patient last filled 90 Percocet on 01/27, less than 1 week ago. Critical Care Time: No Critical care attestation.: If time is entered above; I have spent that time in minutes in the direct care of this critically ill patient, excluding procedure time. ED Disposition Clinical Impression: Cellulitis of buttock, right Abdominal pain Qualifiers: Abdominal location: generalized Qualified Code(s): R10.84 - Generalized abdominal pain Disposition: TO HOME OR SELFCARE Is pt being admited?: No Condition: Stable Instructions: Abdominal Pain (ED) Additional Instructions: Please follow-up with your primary care physician in the next few days. I have given you a referral for a local [employer] power[employer] mechanic helper, Dr. Cade Bowers, who is part of a large group called [facility]. Return to the emergency department with any worsening of your symptoms or any acute distress. Prescriptions: Sulfamethoxazole/Trimethoprim [Bactrim DS TAB] 1 each PO BID #14 tablet Referrals: PRIMARY CAREMD [Primary Care Provider] - 3-5 Days DENZEL BOWERS MD [Staff Physician] - 3-5 Days Time of Disposition: 23:45
--- NOTE | 2020-02-02 23:08 | Cat Scan Report ---
CT abdomen pelvis w con INDICATION: Right-sided abdominal pain. Nausea and vomiting.. TECHNIQUE: All CT scans at this location are performed using the following dose modulation technique: Automated exposure control. CONTRAST: Omnipaque 300, 100 cc IV injection. COMPARISON: None available. CT ABDOMEN: The parenchymal organs are unremarkable in appearance other than a 1 cm left renal cyst. Negative for abdominal mass, fluid or inflammation. The bowel is not dilated or thickened. CT PELVIS: Negative for pelvic mass, fluid or inflammation. The appendix is normal. Status post previous hysterectomy. IMPRESSION: Negative for obstruction or localized inflammation. Signer Name: Ryan Quinones MD Signed: 02/02/2020 11:03 PM Workstation Name: [id number]
[2020-02-02 23:14] VITALS: BP 130/76
[2020-02-02] MEDS ORDERED: SODIUM CHLORIDE 0.9% 500 ML 500 ML IV ONE (23:24)
== END 2020-02-03 00:52 | disposition home or self-care (01) ==
LOC: ED 19:35
DX: L03.317 Cellulitis of buttock (principal); R10.9 Unspecified abdominal pain; E78.00 Pure hypercholesterolemia, unspecified; M19.90 Unspecified osteoarthritis, unspecified site; Z88.6 Allergy status to analgesic agent; Z88.8 Allergy status to other drugs, medicaments and biological substances; Z79.899 Other long term (current) drug therapy; Z98.890 Other specified postprocedural states
CPT/HCPCS: 36415; 71046; 74019; 74177; 80053; 81001; 83690; 84484; 84703; 85025; 85379; 93005; 96374; 96375; 96376; 99285; J2270; J2405; J7030; Q9967

== ENCOUNTER 2020-02-06 09:00 | Inpatient (IN) | payer MEDICAID ==
[2020-02-06 09:57] LABS: Basophils % (Auto) 0.2 % (0.0-1.8); Eosinophils % (Auto) 0.5 % (0.0-4.3); Hemoglobin 11.7 gm/dl (10.1-14.3); Lymphocytes # (Auto) 1.8 K/mm3 (1.2-5.4); Lymphocytes % (Auto) 17.3 % (13.4-35.0); Monocytes # (Auto) 0.7 K/mm3 (0.0-0.8); Monocytes % (Auto) 6.8 % (0.0-7.3)
[2020-02-06 10:13] LABS: Hematocrit 35.4 % (30.3-42.9); Mean Corpuscular HGB Conc 33 % (30-34); Mean Corpuscular Volume 88 fl (79-97); Platelet Count 453 K/mm3 (140-440); Red Blood Count 4.02 M/mm3 (3.65-5.03); Red Cell Distribution Width 14.3 % (13.2-15.2)
[2020-02-06 10:23] LABS: Alanine Aminotransferase 15 units/L (7-56); Albumin 4.3 g/dL (3.9-5); BUN/Creatinine Ratio 10; Blood Urea Nitrogen 7 mg/dL (7-17); Calcium 9.6 mg/dL (8.4-10.2); Hemolysis Index 2
[2020-02-06 10:25] LABS: Erythrocyte Sedimentation Rate > 140.0 mm/Hr (0-20)
[2020-02-06] MEDS ORDERED: SODIUM CHLORIDE 0.9% 1000 ML 1,000 ML IV ONE (10:28)
[2020-02-06] MEDS ORDERED: MORPHINE 4 MG/1 ML INJ IV ONE (10:28)
--- NOTE | 2020-02-06 10:39 | Emergency Department Report ---
HPI - General Chief Complaint: Pain General Time Seen by Provider: 02/06/20 10:17 - HPI HPI: 49-year-old female presents to the emergency department with the complaint of severe pain to the left buttock and into the groin. She also has some intermittent abdominal pain that seems to be worse when she is walking. I saw this patient 4 days ago on 02/02/2020 with a complaint of abdominal pain, nausea and vomiting. At that time her blood work was mostly unremarkable and she had a CT scan of the abdomen and pelvis with IV contrast that did not show any acute process. Towards the end of her work-up she started complaining of some discomfort to the right buttock and was found to have a small area of cellulitis for which she was discharged home on antibiotics. The patient says she has been taking that compliantly but has now developed pain to the other buttock. She has a history of previous buttock infections, rectal abscess, and osteomyelitis. She also has a history of hyperlipidemia, arthritis, and had sepsis in October 2018 secondary to infected left lower leg hardware that was subsequently removed. Patient had surgical incision and debridement of her perirectal abscess in January 2019 and another debridement in May 2019. Patient says that she has had a few days of fever with a T-max of 103 but has been taking Tylenol to treat it, including this morning prior to presentation. ED Past Medical Hx - Past Medical History Hx Hypertension: No Hx Heart Attack/AMI: No Hx Congestive Heart Failure: No Hx Diabetes: No Hx Deep Vein Thrombosis: No Hx Liver Disease: No Hx Renal Disease: No Hx Arthritis: Yes Hx Seizures: No Hx Asthma: No Hx COPD: No Hx HIV: No Additional medical history: chronic pain, hypercholesterolemia, sepsis in 2018, infected hardware in LLL removed 11/2018. spinal stenosis - Surgical History Hx Pacemaker: No Hx Internal Defibrillator: No Additional Surgical History: L leg fx repair. hyst. pelvic fx repair. Pt became septic due to infection caused by metal in LLL: removed early 2018 - Social History Smoking Status: Never Smoker Substance Use Type: None - Medications Home Medications: Home Medications Medication Instructions Recorded Confirmed Last Taken Type Cyclobenzaprine [Flexeril 10 MG 10 mg PO TID PRN 05/07/19 02/06/20 Unknown History TAB] Simvastatin 10 mg PO DAILY 05/07/19 02/06/20 Unknown History ALPRAZolam [Xanax TAB] 2 mg PO QHS PRN #15 tablet 05/12/19 02/06/20 Unknown Rx levoFLOXacin [Levaquin] 750 mg PO QDAY #7 tablet 05/12/19 02/06/20 Unknown Rx Sulfamethoxazole/Trimethoprim 1 each PO BID #14 tablet 02/02/20 02/06/20 Unknown Rx [Bactrim DS TAB] ED Review of Systems ROS: Stated complaint: INFECTION BUTTOCK/FEVER Other details as noted in HPI Comment: All other systems reviewed and negative Constitutional: denies: chills, fever Eyes: denies: eye pain, vision change ENT: denies: ear pain, throat pain Respiratory: denies: cough, shortness of breath Cardiovascular: denies: chest pain, palpitations Gastrointestinal: abdominal pain. denies: vomiting Musculoskeletal: denies: back pain, arthralgia Skin: rash, lesions, change in color. denies: pruritus Neurological: denies: headache, weakness Physical Exam - Physical Exam Vital Signs: Vital Signs 02/06/20 09:03 Temperature 99 F Pulse Rate 128 H Respiratory 18 Rate Blood Pressure 118/83 [Right] O2 Sat by Pulse 97 Oximetry Physical Exam: GENERAL: The patient is well-developed well-nourished. HENT: Normocephalic. Atraumatic. Patient has moist mucous membranes. EYES: Extraocular motions are intact. NECK: Supple. Trachea is midline. CHEST/LUNGS: Clear to auscultation. There is no respiratory distress noted. HEART/CARDIOVASCULAR: Regular. There is mild to moderate tachycardia. ABDOMEN: Abdomen is soft, nontender. Patient has normal bowel sounds. There is no abdominal distention. SKIN: There is a small area of erythema to the right buttock with a small central scab. There is an area of erythema to the left medial gluteal cleft that extends down into the perineum and towards the left labia consistent with a cellulitis. There is some mild fluctuance and induration. No area of discharge or any obvious opening. This area is very tender to palpation. NEURO: The patient is awake, alert, and oriented. The patient is cooperative. The patient has no focal neurologic deficits. Normal speech. MUSCULOSKELETAL: There is no tenderness or deformity. There is no limitation range of motion. There is no evidence of acute injury. ED Course Vital Signs 02/06/20 09:03 Temperature 99 F Pulse Rate 128 H Respiratory 18 Rate Blood Pressure 118/83 [Right] O2 Sat by Pulse 97 Oximetry - Reevaluation(s) Reevaluation #1: External buttock and genital examination was done with nurse Eboni at bedside to reed cleaner 02/06/20 13:53 ED Medical Decision Making - Lab Data Result diagrams: 02/06/20 09:23 02/06/20 09:23 - EKG Data -: EKG Interpreted by Me EKG shows normal: sinus rhythm, axis, intervals, QRS complexes, ST-T waves Rate: tachycardia (111 bpm) - EKG Data When compared to previous EKG there are: previous EKG unavailable Interpretation: normal EKG (wioth sinmus tachy at 111 bpm) - Radiology Data Radiology results: report reviewed, image reviewed interpreted by me: Chest x-ray does not show any acute process. There are no pleural effusions, obvious pneumonia and there is no pneumothorax. CT ABDOMEN AND PELVIS WITH IV CONTRAST INDICATION: buttock cellulitis and pain. Pelvic pain. COMPARISON: None available. TECHNIQUE: Axial CT images were obtained through the abdomen and pelvis after 100 mL IV contrast. All CT scans at this location are performed using CT dose reduction for ALARA by means of automated exposure control. FINDINGS -- ABDOMEN: Lung Bases: No acute abnormality. Liver: Normal. Gallbladder: Normal. Bile Ducts: Normal. Pancreas: Normal. Spleen: Normal. Adrenals: Normal. Right Kidney and Proximal Ureter: Normal. Left Kidney and Proximal Ureter: Normal. Stomach and Bowel: Normal. Lymph Nodes: No significant adenopathy. Aorta: No significant abnormality. IVC: Normal. Additional Findings: None. FINDINGS -- PELVIS: Urinary Bladder and Distal Ureters: Normal. Reproductive Organs: No acute abnormality. Appendix: Normal. Bowel: No acute abnormality. Free Fluid: None. Lymph Nodes: Bilateral inguinal adenopathy.. Additional Findings: Along the left gluteal cleft is severe cellulitis. There is some intermixed gas and fluid near the gluteal cleft that measures about 10 mm in greatest diameter.. Skeletal System: No acute abnormality. IMPRESSION: 1. 1 cm mixed air and fluid process along the left gluteal cleft that could represent recently evacuated abscess. Moderate surrounding cellulitis, likely infectious. 2. Moderate cellulitis identified along the perineum and left labia majora region, likely infectious. 3. Moderate bilateral inguinal adenopathy - Medical Decision Making This patient presents to the emergency department with the complaint of left- sided buttock pain that goes down into the perineum and towards the left labia. She was seen by me a few days ago for some chronic abdominal pain and at that time also had some right buttock pain. She was placed on antibiotics but since that time, despite alleged compliance with the antibiotics, the patient has now developed cellulitis of the left gluteal cleft that goes down to the perineum and to the left labia. Patient is afebrile here but says that she took some Tylenol prior to presentation. No leukocytosis. She does have elevated inflammatory markers of sed rate and CRP. CT of the abdomen and pelvis with IV contrast shows an area of cellulitis and possibly a developing small abscess. She was seen in the emergency department by general surgery and the patient may go to the OR in the near future for I&D. She will be admitted to the [facility] service and was accepted for admission by Dr Thomas for Dr Clemons. Critical Care Time: No Critical care attestation.: If time is entered above; I have spent that time in minutes in the direct care of this critically ill patient, excluding procedure time. ED Disposition Clinical Impression: Cellulitis of left buttock, Cellulitis of perineum, SIRS (systemic inflammatory response syndrome) Chest pain Qualifiers: Chest pain type: chest pain on breathing Qualified Code(s): R07.1 - Chest pain on breathing Disposition: OP ADMIT IP TO THIS HOSP Is pt being admited?: Yes Condition: Serious Time of Disposition: 12:52
[2020-02-06] MEDS ORDERED: ONDANSETRON 4 MG/2 ML INJ IV ONE (11:41)
--- NOTE | 2020-02-06 12:34 | Cat Scan Report ---
CT ABDOMEN AND PELVIS WITH IV CONTRAST INDICATION: buttock cellulitis and pain. Pelvic pain. COMPARISON: None available. TECHNIQUE: Axial CT images were obtained through the abdomen and pelvis after 100 mL IV contrast. All CT scans a t this location are performed using CT dose reduction for ALARA by means of automated exposure contro l. FINDINGS -- ABDOMEN: Lung Bases: No acute abnormality. Liver: Normal. Gallbladder: Normal. Bile Ducts: Normal. Pancreas: Normal. Spleen: Normal. Adrenals: Normal. Right Kidney and Proximal Ureter: Normal. Left Kidney and Proximal Ureter: Normal. Stomach and Bowel: Normal. Lymph Nodes: No significant adenopathy. Aorta: No significant abnormality. IVC: Normal. Additional Findings: None. FINDINGS -- PELVIS: Urinary Bladder and Distal Ureters: Normal. Reproductive Organs: No acute abnormality. Appendix: Normal. Bowel: No acute abnormality. Free Fluid: None. Lymph Nodes: Bilateral inguinal adenopathy.. Additional Findings: Along the left gluteal cleft is severe cellulitis. There is some intermixed gas and fluid near the gluteal cleft that measures about 10 mm in greatest diameter.. Skeletal System: No acute abnormality. IMPRESSION: 1. 1 cm mixed air and fluid process along the left gluteal cleft that could represent recently evacua kelin abscess. Moderate surrounding cellulitis, likely infectious. 2. Moderate cellulitis identified along the perineum and left labia majora region, likely infectious. 3. Moderate bilateral inguinal adenopathy Signer Name: Yaakov Vela MD Signed: 02/06/2020 12:30 PM Workstation Name: [id number]
--- NOTE | 2020-02-06 12:47 | Consultation ---
History of Present Illness Consult date: 02/06/20 Chief complaint: gluteal, rectal pain. labial pain - History of present illness History of present illness: 49 yo F with hx of chronic low back pain, perirectal abscess who underwent incision and drainage of perirectal abscess on 02/16/19 and excisional debridement of perirectal/gluteal wound with drainage of abscess in May 2019. Patient is noncompliant and has only followed up in wound care clinic once but has presented to ER multiple times for c/o gluteal and rectal pain. Patient was in ER 4 days ago with c/o chronic abdominal pain, nausea. CT scan A/P at that time was unremarkable. She returns to ER today due to pain in the buttock region. She states she was started on abx by ER physician 4 days ago but has been experiencing increased pain in the left perirectal area, right gluteal area, and labia with swelling, redness for the last week. The antibiotics have not seemed to help. She has had fever up to 102-103. Past History Past Medical History: hyperlipidemia, other (chronic pain, perirectal abscess, anxiety) Past Surgical History: Other (incision and drainage perirectal abscess, exicisional debridement of gluteal wound) Social history: no significant social history Family history: no significant family history Medications and Allergies Allergies Allergy/AdvReac Type Severity Reaction Status Date / Time aspirin Allergy Swelling Verified 04/11/19 11:09 hydroxyzine HCl Allergy Anaphylaxis Verified 04/11/19 11:09 [From Vistaril] hydroxyzine pamoate Allergy Anaphylaxis Verified 04/11/19 11:09 [From Vistaril] ketorolac tromethamine Allergy Swelling Verified 04/11/19 11:09 [From Toradol] Penicillins Allergy Anaphylaxis Verified 04/11/19 11:09 tramadol Allergy Shortness Verified 04/11/19 11:09 of Breath vancomycin Allergy Rash Verified 04/11/19 11:09 Home Medications Medication Instructions Recorded Confirmed Last Taken Type Cyclobenzaprine [Flexeril 10 MG 10 mg PO TID PRN 05/07/19 02/06/20 Unknown History TAB] Simvastatin 10 mg PO DAILY 05/07/19 02/06/20 Unknown History ALPRAZolam [Xanax TAB] 2 mg PO QHS PRN #15 tablet 05/12/19 02/06/20 Unknown Rx levoFLOXacin [Levaquin] 750 mg PO QDAY #7 tablet 05/12/19 02/06/20 Unknown Rx Sulfamethoxazole/Trimethoprim 1 each PO BID #14 tablet 02/02/20 02/06/20 Unknown Rx [Bactrim DS TAB] Review of Systems All systems: negative (10 pt ROS performed and negative except for that listed in HPI) Exam Vital Signs Temp Pulse Resp BP Pulse Ox 99 F 128 H 18 118/83 97 02/06/20 09:03 02/06/20 09:03 02/06/20 09:03 02/06/20 09:03 02/06/20 09:03 Narrative exam: Gen: AAOx3. NAD ENT: no scleral icterus CV: s1, S2+ Resp: even and unlabored Ext; no c/c/e Gluteal (with printing plate setter in room): cellulitis and tenderness along left inner gluteal cleft, perirectal region with no evidence of open wound. There is mild fluctuance and induration. The cellulitis extends into the peirneum and to the left labia. There is some purulent discharge present at the left labia but no obvious opening. The left labia is indurated, erythematous, and TTP. There is a small area of cellulitis over the right buttock with induration but no fluctuance. There is a central area with scab. Results - Labs 02/06/20 09:23 02/06/20 09:23 Abnormal lab results 02/06/20 02/06/20 02/06/20 Range/Units 09:23 09:23 09:23 Plt Count 453 H (140-440) K/mm3 Seg Neutrophils % 75.2 H (40.0-70.0) % Seg Neutrophils # 8.0 H (1.8-7.7) K/mm3 Sodium 136 L (137-145) mmol/L Chloride 97.0 L (98-107) mmol/L Glucose 207 H (65-100) mg/dL Lactic Acid 3.00 H* (0.7-2.0) mmol/L C-Reactive Protein (0.00-1.30) mg/dL 02/06/20 02/06/20 Range/Units 09:23 10:46 Plt Count (140-440) K/mm3 Seg Neutrophils % (40.0-70.0) % Seg Neutrophils # (1.8-7.7) K/mm3 Sodium (137-145) mmol/L Chloride (98-107) mmol/L Glucose (65-100) mg/dL Lactic Acid 2.10 H* (0.7-2.0) mmol/L C-Reactive Protein 10.00 H (0.00-1.30) mg/dL Diabetes panel 02/06/20 Range/Units 09:23 Sodium 136 L (137-145) mmol/L Potassium 3.6 (3.6-5.0) mmol/L Chloride 97.0 L (98-107) mmol/L Carbon Dioxide 24 (22-30) mmol/L BUN 7 (7-17) mg/dL Creatinine 0.7 (0.7-1.2) mg/dL Glucose 207 H (65-100) mg/dL Calcium 9.6 (8.4-10.2) mg/dL AST 12 (5-40) units/L ALT 15 (7-56) units/L Alkaline Phosphatase 91 (35-129) units/L Total Protein 8.1 (6.3-8.2) g/dL Albumin 4.3 (3.9-5) g/dL Calcium panel 02/06/20 Range/Units 09:23 Calcium 9.6 (8.4-10.2) mg/dL Albumin 4.3 (3.9-5) g/dL Pituitary panel 02/06/20 Range/Units 09:23 Sodium 136 L (137-145) mmol/L Potassium 3.6 (3.6-5.0) mmol/L Chloride 97.0 L (98-107) mmol/L Carbon Dioxide 24 (22-30) mmol/L BUN 7 (7-17) mg/dL Creatinine 0.7 (0.7-1.2) mg/dL Glucose 207 H (65-100) mg/dL Calcium 9.6 (8.4-10.2) mg/dL Adrenal panel 02/06/20 Range/Units 09:23 Sodium 136 L (137-145) mmol/L Potassium 3.6 (3.6-5.0) mmol/L Chloride 97.0 L (98-107) mmol/L Carbon Dioxide 24 (22-30) mmol/L BUN 7 (7-17) mg/dL Creatinine 0.7 (0.7-1.2) mg/dL Glucose 207 H (65-100) mg/dL Calcium 9.6 (8.4-10.2) mg/dL Total Bilirubin 0.40 (0.1-1.2) mg/dL AST 12 (5-40) units/L ALT 15 (7-56) units/L Alkaline Phosphatase 91 (35-129) units/L Total Protein 8.1 (6.3-8.2) g/dL Albumin 4.3 (3.9-5) g/dL - Imaging CT scan - abdomen: report reviewed, image reviewed US - pelvic: report reviewed, image reviewed Assessment and Plan 49 yo F with 1. gluteal/perineal/labial cellulitis with abscess, possible necrotizing soft tissue infection 2. hx of chronic perirectal abscess s/p drainage 3. chronic pain Plan: 1. Admit to hospitalist service 2. IVF 3. IV abx 4. NPO 5. prn pain control 6. Ct scan A/P 02/06/20 and 02/02/20 reviewed and compared. New area of fluid and cellulitis of left perirectal region and perineum. Recommend incision and drainage of the abscess. Will likely result in large wound. Possible need for incision and drainage of left labia. Will perform I&D in OR. All risks, benefits, alternatives to surgery discussed with patient and questions answered. Consent obtained. 7. wound care consult 8. Once again educated patient on the importance of follow up. Patient has chronic underlying wound that will continue to form abscesses unless properly treated with aggressive wound care and follow up. Unfortunately she has been noncompliant in the past resulting in recurrence of the abscess. 9. COVID testing pending D/W Dr. Elizalde. Thank you, please call with questions
--- NOTE | 2020-02-06 13:13 | XRay Report ---
CHEST 1 VIEW 12:43 PM INDICATION / CLINICAL INFORMATION: Chest pain. COMPARISON: 02/02/2020. FINDINGS: SUPPORT DEVICES: None. HEART / MEDIASTINUM: The heart size and pulmonary vasculature are normal. The aorta is normal in [place]. LUNGS / PLEURA: No significant pulmonary or pleural abnormality. No pneumothorax. ADDITIONAL FINDINGS: No significant additional findings. IMPRESSION: No acute abnormality or significant change. Signer Name: Dmitriy Velez MD Signed: 02/06/2020 1:09 PM Workstation Name: [id number]
--- NOTE | 2020-02-06 14:18 | Anesthesia Consultation ---
Anesthesia Consult and Med Hx Date of service: 02/06/20 - Airway Anesthetic Teeth Evaluation: Poor, Partials ROM Head & Neck: Adequate Mental/Hyoid Distance: Adequate Mallampati Class: Class III Intubation Access Assessment: Probably Good - Pulmonary Exam CTA: Yes - Cardiac Exam Cardiac Exam: RRR - Pre-Operative Health Status ASA Pre-Surgery Classification: ASA2 Proposed Anesthetic Plan: General - Pulmonary Hx Smoking: No Hx Asthma: No Hx Respiratory Symptoms: No COPD: No Hx Pneumonia: No - Cardiovascular System Hx Hypertension: No Hx Heart Attack/AMI: No Hx Percutaneous Transluminal Coronary Angioplasty (PTCA): No Hx Pacemaker: No Hx Internal Defibrillator: No - Central Nervous System Hx Seizures: No CVA: No Hx Back Pain: Yes (spinal stenosis) - Endocrine Hx Renal Disease: No Hx End Stage Renal Disease: No Hx Liver Disease: No Hx Insulin Dependent Diabetes: No Hx Non-Insulin Dependent Diabetes: No Hx Thyroid Disease: No - Other Systems Hx Cancer: No Hx Obesity: Yes
--- NOTE | 2020-02-06 14:19 | Anesthesia Day of Surgery ---
Anesthesia Day of Surgery - Day of Surgery Patient Examined: Yes Patient H&P Reviewed: Yes Patient is NPO: Yes
[2020-02-06] MEDS ORDERED: HYDROmorphone 1 MG/1 ML INJ IV PRN ×2 (14:29→16:03)
[2020-02-06] MEDS ORDERED: HYDROmorphone 1 MG/1 ML INJ ONE ×2 (14:31→16:42)
[2020-02-06] MEDS ORDERED: BUPIVACAINE/PF (0.5%) 5 MG/1 ML 30 ML VIAL INFILTRATI ONE (14:47)
[2020-02-06] MEDS ORDERED: HYDROGEN PEROXIDE 118 ML SOLUTION ONE (14:48)
[2020-02-06] MEDS ORDERED: LIDOCAINE MPF (2%) 20 MG/1 ML VIAL 5 ML ONE (15:06)
[2020-02-06] MEDS ORDERED: ONDANSETRON 4 MG/2 ML INJ ONE (15:06)
[2020-02-06] MEDS ORDERED: fentaNYL 100 MCG/2 ML INJ ONE ×2 (15:06→16:05)
[2020-02-06] MEDS ORDERED: propofoL 200 MG/20 ML VIAL IV ONE (15:06)
[2020-02-06] MEDS ORDERED: GLYCOPYRROLATE 0.4 MG/2 ML INJ ONE (15:06)
[2020-02-06] MEDS ORDERED: PHENYLEPHRINE/NS 1,000 MCG/10 ML SYRINGE (OR USE) IV ONE (15:06)
[2020-02-06] MEDS ORDERED: ONDANSETRON 4 MG/2 ML INJ IV PRN ×2 (16:03→20:15)
[2020-02-06] MEDS ORDERED: oxyCODONE 5 MG TAB PO PRN (16:13)
--- NOTE | 2020-02-06 16:13 | Post Operative Note ---
Pre-op diagnosis: gluteal cellulitis with abscess, labial abscess Post-op diagnosis: same Findings: 1. Old abscess cavity of left inner gluteal cleft with chronic granulation tissue, no pus 2. labial abscesses Procedure: 1. Incision and drainage of left gluteal abscess with debridement of abscess cavity 2. Drainage of labial abscesses Anesthesia: GETA (LMA), local Surgeon: VIANNEY STOKES Certified Court/Medical Interpreter: MESSI ARREOLA Estimated blood loss: minimal Pathology: list (1. wound cultures L gluteal, 2. wound cultures labia) Specimen disposition: to lab Condition: stable Disposition: PACU
--- NOTE | 2020-02-06 16:37 | Operative Report ---
Operative Report Operative Report: Date: 02/06/20 16:09 Pre-op diagnosis: gluteal cellulitis with abscess, labial abscess Post-op diagnosis: same Findings: 1. Old abscess cavity of left inner gluteal cleft with chronic granulation tissue, no pus 2. labial abscesses Procedure: 1. Incision and drainage of left gluteal abscess with debridement of abscess cavity 2. Drainage of labial abscesses Anesthesia: GETA (LMA), local Surgeon: VIANNEY STOKES Engineering Teacher: MESSI ARREOLA Estimated blood loss: minimal Pathology: list (1. wound cultures L gluteal, 2. wound cultures labia) Specimen disposition: to lab Condition: stable Disposition: PACU H&P and indication: Patient is a 49-year-old female with a known history of a left perirectal/gluteal abscess for which she underwent incision and drainage, debridement x2. The patient has been noncompliant with follow-up and has been having intermittent flareups in the area. She presented to the emergency room today with cellulitis of the left intergluteal area extending to the perineum and to the labia. She states that she has been experiencing pain and redness in these areas for the last [address] scan of the abdomen and pelvis was performed which showed an area of fluid and air of the left perirectal area and severe cellulitis. It was recommended the patient undergo incision and drainage. All risks, benefits, alternatives to surgery discussed with patient and questions answered. Consent was obtained for incision and drainage and debridement of abscess of gluteal, labial, perineum. Procedure in detail: Patient was identified in the preoperative area, taken back to the operating room, placed on the operating room table in supine position. After anesthesia was induced the patient was placed in left lateral decubitus position with right side up. All bony prominences were padded appropriately. The buttocks, perianal area was prepped with Betadine and draped in the usual sterile fashion a timeout performed. Local anesthetic was infiltrated to the skin and subcutaneous tissue at the intended incision site. A 2 cm incision was made in the left intergluteal area at the site of the abscess using an 11 blade. The area was probed with a gloved finger and there was a chronic abscess cavity present which tunneled along the subcutaneous tissue inferiorly by approximately 3 cm and deep in the perirectal tissue approximately 8 cm. The cavity was unroofed by extending the incision another 2 cm inferiorly. There was no fluid present. There was chronic granulation tissue seen. The wound bed was clean and healthy. There appeared to be no connection to the rectum. Using a curette, the abscess cavity was debrided and chronic granulation tissue excised. Cultures were obtained. The cavity was irrigated with saline. Hemostasis was ensured. The cavity was packed with 1 piece of saline moistened Kerlix. This was covered with 4 x 4 gauze, ABD pad, tape. The patient was then returned to supine position and frog legged. There was purulent drainage visible from both labia. All purulent material was expressed through small openings already present. Cultures were obtained. The openings on both labia were probed with a hemostat and there was minimal tunneling on the left and no tunneling on the right. Once all infectious material was expressed the area was cleansed and Betadine applied. There were multiple tiny pustules present in the right groin. At the end of the case, all sponge, instrument, sharp counts were correct x2. The patient was awoken from anesthesia and taken to PACU in stable condition.
[2020-02-06] MEDS ORDERED: MEPERIDINE 25 MG/1 ML INJ ONE (16:53)
[2020-02-06] MEDS ORDERED: MEPERIDINE 25 MG/1 ML INJ IV PRN (16:55)
[2020-02-06] MEDS: MORPHINE 2 MG/1 ML INJ IV PRN (20:28)
[2020-02-06] MEDS ORDERED: ACETAMINOPHEN 325 MG TAB PO PRN (21:45)
[2020-02-06] MEDS: CLINDAMYCIN 600 MG/50 mL 600 MG/50 ML BAG IV SCH ×2 (21:47→23:33)
[2020-02-07] MEDS: MORPHINE 2 MG/1 ML INJ IV PRN ×5 (01:25→21:07)
[2020-02-07] MEDS: CLINDAMYCIN 600 MG/50 mL 600 MG/50 ML BAG IV SCH (05:28)
--- NOTE | 2020-02-07 07:05 | Progress Note ---
Assessment and Plan 49 yo F s/p 1. Incision and drainage of left gluteal abscess with debridement of abscess cavity, 2. Drainage of labial abscesses, POD 1 Plan: 1. follow up intraop cx 2. prn pain control 3. IV abx 4. ID consulted 5. warm compresses to right groin 6. sitz baths BID. Instructed RN and patient to slowly remove the gluteal packing throughout the day 7. reg diet 8. OOB/ambulate Thank you, please call with questions. Subjective Date of service: 02/07/20 Narrative: Pt seen and examined. Tm 102.9. Mild nausea. Pain controlled. Objective Vital Signs - 12hr 02/07/20 02/07/20 00:00 01:25 Temperature 102.9 F H Respiratory 18 Rate - General physical appearance Narrative Exam: Gen: AAOx3. NAD CV: s1, S2+ resp: even and unlabored : Dressings c/d/i - Labs 02/06/20 09:23 02/06/20 09:23 Diabetes panel 02/06/20 Range/Units 09:23 Sodium 136 L (137-145) mmol/L Potassium 3.6 (3.6-5.0) mmol/L Chloride 97.0 L (98-107) mmol/L Carbon Dioxide 24 (22-30) mmol/L BUN 7 (7-17) mg/dL Creatinine 0.7 (0.7-1.2) mg/dL Glucose 207 H (65-100) mg/dL Calcium 9.6 (8.4-10.2) mg/dL AST 12 (5-40) units/L ALT 15 (7-56) units/L Alkaline Phosphatase 91 (35-129) units/L Total Protein 8.1 (6.3-8.2) g/dL Albumin 4.3 (3.9-5) g/dL Calcium panel 02/06/20 Range/Units 09:23 Calcium 9.6 (8.4-10.2) mg/dL Albumin 4.3 (3.9-5) g/dL Pituitary panel 02/06/20 Range/Units 09:23 Sodium 136 L (137-145) mmol/L Potassium 3.6 (3.6-5.0) mmol/L Chloride 97.0 L (98-107) mmol/L Carbon Dioxide 24 (22-30) mmol/L BUN 7 (7-17) mg/dL Creatinine 0.7 (0.7-1.2) mg/dL Glucose 207 H (65-100) mg/dL Calcium 9.6 (8.4-10.2) mg/dL Adrenal panel 02/06/20 Range/Units 09:23 Sodium 136 L (137-145) mmol/L Potassium 3.6 (3.6-5.0) mmol/L Chloride 97.0 L (98-107) mmol/L Carbon Dioxide 24 (22-30) mmol/L BUN 7 (7-17) mg/dL Creatinine 0.7 (0.7-1.2) mg/dL Glucose 207 H (65-100) mg/dL Calcium 9.6 (8.4-10.2) mg/dL Total Bilirubin 0.40 (0.1-1.2) mg/dL AST 12 (5-40) units/L ALT 15 (7-56) units/L Alkaline Phosphatase 91 (35-129) units/L Total Protein 8.1 (6.3-8.2) g/dL Albumin 4.3 (3.9-5) g/dL
[2020-02-07 07:34] LABS: Hematocrit 35.6 % (30.3-42.9); Hemoglobin 11.4 gm/dl (10.1-14.3); Mean Corpuscular HGB Conc 32 % (30-34); Mean Corpuscular Volume 88 fl (79-97); Platelet Count 427 K/mm3 (140-440); Red Blood Count 4.04 M/mm3 (3.65-5.03); Red Cell Distribution Width 14.4 % (13.2-15.2)
[2020-02-07 07:54] LABS: BUN/Creatinine Ratio 15; Blood Urea Nitrogen 9 mg/dL (7-17); Calcium 9.1 mg/dL (8.4-10.2); Hemolysis Index 4
--- NOTE | 2020-02-07 08:32 | History and Physical Report ---
History of Present Illness Date of examination: 02/06/20 Date of admission: 02/06/20 12:50 Chief complaint: Pain perirectal region 1 week History of present illness: 49 yo F with hx of chronic low back pain, perirectal abscess who underwent incision and drainage of perirectal abscess on 02/16/19 and excisional debridement of perirectal/gluteal wound with drainage of abscess in May 2019. Patient is noncompliant and has only followed up in wound care clinic once but has presented to ER multiple times for c/o gluteal and rectal pain. Patient was in ER 4 days ago with c/o chronic abdominal pain, nausea. CT scan A/P at that time was unremarkable. She returns to ER today due to pain in the buttock region. She states she was started on abx by ER physician 4 days ago but has been experiencing increased pain in the left perirectal area, right gluteal area, and labia with swelling, redness for the last week. The antibiotics have not seemed to help. She has had fever up to 102-103. Past History Past Medical History: hyperlipidemia, other (chronic pain, perirectal abscess, anxiety) Past Surgical History: Other (incision and drainage perirectal abscess, exicisional debridement of gluteal wound) Social history: no significant social history Family history: no significant family history Medications and Allergies Allergies Allergy/AdvReac Type Severity Reaction Status Date / Time aspirin Allergy Swelling Verified 04/11/19 11:09 hydroxyzine HCl Allergy Anaphylaxis Verified 04/11/19 11:09 [From Vistaril] hydroxyzine pamoate Allergy Anaphylaxis Verified 04/11/19 11:09 [From Vistaril] ketorolac tromethamine Allergy Swelling Verified 04/11/19 11:09 [From Toradol] Penicillins Allergy Anaphylaxis Verified 04/11/19 11:09 tramadol Allergy Shortness Verified 04/11/19 11:09 of Breath vancomycin Allergy Rash Verified 04/11/19 11:09 Home Medications Medication Instructions Recorded Confirmed Last Taken Type Cyclobenzaprine [Flexeril 10 MG 10 mg PO TID PRN 05/07/19 02/06/20 Unknown History TAB] Simvastatin 10 mg PO DAILY 05/07/19 02/06/20 Unknown History ALPRAZolam [Xanax TAB] 2 mg PO QHS PRN #15 tablet 05/12/19 02/06/20 Unknown Rx levoFLOXacin [Levaquin] 750 mg PO QDAY #7 tablet 05/12/19 02/06/20 Unknown Rx Sulfamethoxazole/Trimethoprim 1 each PO BID #14 tablet 02/02/20 02/06/20 Unknown Rx [Bactrim DS TAB] Review of Systems All systems: negative (10 pt ROS performed and negative except for that listed in HPI) Past History Past Medical History: hyperlipidemia, other (chronic pain, perirectal abscess, anxiety) Past Surgical History: Other (incision and drainage perirectal abscess, exicisional debridement of gluteal wound) Social history: no significant social history Family history: no significant family history Medications and Allergies Allergies Allergy/AdvReac Type Severity Reaction Status Date / Time aspirin Allergy Swelling Verified 04/11/19 11:09 hydroxyzine HCl Allergy Anaphylaxis Verified 04/11/19 11:09 [From Vistaril] hydroxyzine pamoate Allergy Anaphylaxis Verified 04/11/19 11:09 [From Vistaril] ketorolac tromethamine Allergy Swelling Verified 04/11/19 11:09 [From Toradol] Penicillins Allergy Anaphylaxis Verified 04/11/19 11:09 tramadol Allergy Shortness Verified 04/11/19 11:09 of Breath vancomycin Allergy Rash Verified 04/11/19 11:09 Home Medications Medication Instructions Recorded Confirmed Last Taken Type Cyclobenzaprine [Flexeril 10 MG 10 mg PO TID PRN 05/07/19 02/06/20 Unknown History TAB] Simvastatin 10 mg PO DAILY 05/07/19 02/06/20 Unknown History ALPRAZolam [Xanax TAB] 2 mg PO QHS PRN #15 tablet 05/12/19 02/06/20 Unknown Rx levoFLOXacin [Levaquin] 750 mg PO QDAY #7 tablet 05/12/19 02/06/20 Unknown Rx Sulfamethoxazole/Trimethoprim 1 each PO BID #14 tablet 02/02/20 02/06/20 Unknown Rx [Bactrim DS TAB] Active Meds: Active Medications Acetaminophen (Tylenol) 650 mg PO Q4H PRN PRN Reason: Pain, Mild (1-3) Hydromorphone HCl (Dilaudid) 0.5 mg IV Q10MIN PRN PRN Reason: Pain , Severe (7-10) Stop: 02/07/20 16:02 Last Admin: 02/06/20 16:40 Dose: 0.5 mg Documented by: Clindamycin HCl (Cleocin 600 Mg/50 Ml) 600 mg in 50 mls @ 100 mls/hr IV Q8HR JASON; Protocol Last Admin: 02/07/20 05:28 Dose: 100 mls/hr Documented by: Metoclopramide HCl (Reglan) 10 mg IV Q6H PRN PRN Reason: Nausea And Vomiting Morphine Sulfate (Morphine) 2 mg IV Q4H PRN PRN Reason: Pain, Moderate (4-6) Last Admin: 02/07/20 06:35 Dose: 2 mg Documented by: Ondansetron HCl (Zofran) 4 mg IV Q4H PRN PRN Reason: Nausea And Vomiting Oxycodone HCl (Roxicodone) 5 mg PO Q4H PRN PRN Reason: Pain, Moderate (4-6) Exam - Constitutional Vitals: Temp Pulse Resp BP Pulse Ox 99.5 F 116 H 18 126/71 92 02/07/20 05:39 02/07/20 07:28 02/07/20 06:35 02/07/20 07:28 02/07/20 05:39 General appearance: Present: no acute distress, well-nourished - EENT Eyes: Present: PERRL ENT: hearing intact, clear oral mucosa - Neck Neck: Present: supple, normal ROM - Respiratory Respiratory effort: normal Respiratory: bilateral: CTA - Cardiovascular Heart rate: 78 Rhythm: regular Heart Sounds: Present: S1 & S2. Absent: rub, click - Extremities Extremities: no ischemia, pulses symmetrical, No edema, abnormal Extremity abnormal: other Peripheral Pulses: within normal limits - Abdominal General gastrointestinal: Present: soft, non-tender, non-distended, normal bowel sounds Female genitourinary: Present: normal - Integumentary Integumentary: Present: clear, warm, dry - Musculoskeletal Musculoskeletal: gait normal, strength equal bilaterally - Psychiatric Psychiatric: appropriate mood/affect, intact judgment & insight - Neurologic Neurologic: CNII-XII intact, moves all extremities - Additional findings Additional findings: Gluteal exam: Gluteal (with graphic design specialist in room): cellulitis and tenderness along left inner gluteal cleft, perirectal region with no evidence of open wound. There is mild fluctuance and induration. The cellulitis extends into the peirneum and to the left labia. There is some purulent discharge present at the left labia but no obvious opening. The left labia is indurated, erythematous, and TTP. There is a small area of cellulitis over the right buttock with induration but no fluctuanc e. There is a central area with scab. - Allied Health Allied health notes reviewed: nursing, case management ABBIE score - Abbie Score Age > 65: (0) No Aspirin use within the Past 7 Days: (0) No 3 or more CAD Risk Factors: (0) No 2 or more Angina events in past 24 hrs: (0) No Known CAD with more than 50% Stenosis: (0) No Elevated Cardiac Markers: (0) No ST Deviation Greater than 0.5mm: (0) No ABBIE Score: 0 Results - Labs CBC & Chem 7: 02/07/20 07:16 02/07/20 07:16 Labs: Laboratory Last Values WBC 14.3 K/mm3 (4.5-11.0) H 02/07/20 07:16 RBC 4.04 M/mm3 (3.65-5.03) 02/07/20 07:16 Hgb 11.4 gm/dl (10.1-14.3) 02/07/20 07:16 Hct 35.6 % (30.3-42.9) 02/07/20 07:16 MCV 88 fl (79-97) 02/07/20 07:16 MCH 28 pg (28-32) 02/07/20 07:16 MCHC 32 % (30-34) 02/07/20 07:16 RDW 14.4 % (13.2-15.2) 02/07/20 07:16 Plt Count 427 K/mm3 (140-440) 02/07/20 07:16 Lymph % (Auto) 17.3 % (13.4-35.0) 02/06/20 09:23 [place] % (Auto) 6.8 % (0.0-7.3) 02/06/20 09:23 Eos % (Auto) 0.5 % (0.0-4.3) 02/06/20 09:23 Baso % (Auto) 0.2 % (0.0-1.8) 02/06/20 09:23 Lymph # 1.8 K/mm3 (1.2-5.4) 02/06/20 09:23 [place] # 0.7 K/mm3 (0.0-0.8) 02/06/20 09:23 Eos # 0.0 K/mm3 (0.0-0.4) 02/06/20 09:23 Baso # 0.0 K/mm3 (0.0-0.1) 02/06/20 09:23 Seg Neutrophils % 75.2 % (40.0-70.0) H 02/06/20 09:23 Seg Neutrophils # 8.0 K/mm3 (1.8-7.7) H 02/06/20 09:23 ESR > 140.0 mm/Hr (0-20) 02/06/20 09:23 Sodium 133 mmol/L (137-145) L 02/07/20 07:16 Potassium 4.2 mmol/L (3.6-5.0) 02/07/20 07:16 Chloride 93.5 mmol/L (98-107) L 02/07/20 07:16 Carbon Dioxide 26 mmol/L (22-30) 02/07/20 07:16 Anion Gap 18 mmol/L 02/07/20 07:16 BUN 9 mg/dL (7-17) 02/07/20 07:16 Creatinine 0.6 mg/dL (0.7-1.2) L 02/07/20 07:16 Estimated GFR > 60 ml/min 02/07/20 07:16 BUN/Creatinine Ratio 15 % 02/07/20 07:16 Glucose 90 mg/dL (65-100) 02/07/20 07:16 Lactic Acid 2.10 mmol/L (0.7-2.0) H* 02/06/20 10:46 Calcium 9.1 mg/dL (8.4-10.2) 02/07/20 07:16 Total Bilirubin 0.40 mg/dL (0.1-1.2) 02/06/20 09:23 AST 12 units/L (5-40) 02/06/20 09:23 ALT 15 units/L (7-56) 02/06/20 09:23 Alkaline Phosphatase 91 units/L (35-129) 02/06/20 09:23 Troponin T < 0.010 ng/mL (0.00-0.029) 02/06/20 09:23 C-Reactive Protein 10.00 mg/dL (0.00-1.30) H 02/06/20 09:23 Total Protein 8.1 g/dL (6.3-8.2) 02/06/20 09:23 Albumin 4.3 g/dL (3.9-5) 02/06/20 09:23 Albumin/Globulin Ratio 1.1 % 02/06/20 09:23 Short CBC 02/06/20 02/07/20 Range/Units 09:23 07:16 WBC 10.7 14.3 H (4.5-11.0) K/mm3 Hgb 11.7 11.4 (10.1-14.3) gm/dl Hct 35.4 35.6 (30.3-42.9) % Plt Count 453 H 427 (140-440) K/mm3 BMP 02/06/20 02/07/20 09:23 07:16 Sodium 136 L 133 L Potassium 3.6 4.2 Chloride 97.0 L 93.5 L Carbon Dioxide 24 26 BUN 7 9 Creatinine 0.7 0.6 L Glucose 207 H 90 Calcium 9.6 9.1 Cardiac Enzymes 02/06/20 Range/Units 09:23 Troponin T < 0.010 (0.00-0.029) ng/mL Liver Function 02/06/20 Range/Units 09:23 Total Bilirubin 0.40 (0.1-1.2) mg/dL AST 12 (5-40) units/L ALT 15 (7-56) units/L Alkaline Phosphatase 91 (35-129) units/L Albumin 4.3 (3.9-5) g/dL Microbiology: Microbiology 02/06/20 09:23 Peripheral/Venous Blood Culture - Preliminary Culture in Progress 02/06/20 09:23 Peripheral/Venous Blood Culture - Preliminary Culture in Progress - Imaging and Cardiology CT scan - abdomen: report reviewed Imaging and Cardiology: CT Abdomen /Pelvis IMPRESSION: 1. 1 cm mixed air and fluid process along the left gluteal cleft that could represent recently evacuated abscess. Moderate surrounding cellulitis, likely infectious. 2. Moderate cellulitis identified along the perineum and left labia majora region, likely infectious. 3. Moderate bilateral inguinal adenopathy Rubi/IV: Voiding Method Toilet IV Catheter Type [Right Wrist] INT / Saline Lock Assessment and Plan Advance Directives: Yes (Full code) VTE prophylaxis?: Chemical Plan of care discussed with patient/family: Yes - Patient Problems (1) SIRS (systemic inflammatory response syndrome) Current Visit: Yes Status: Acute Plan to address problem: Elevated Leukocyte count and Elevated Lactic acid levels IV Clindamycin for now (2) Cellulitis of left buttock Current Visit: Yes Status: Acute Plan to address problem: IV abx and Surgery consult (3) Cellulitis of perineum Current Visit: Yes Status: Acute Plan to address problem: IV abx and Surgery consultation--Appreciated (4) HLD (hyperlipidemia) Current Visit: No Status: Chronic Qualifiers: Hyperlipidemia type: mixed hyperlipidemia Qualified Code(s): E78.2 - Mixed hyperlipidemia Plan to address problem: COnt stains (5) ADRIANE (generalized anxiety disorder) Current Visit: Yes Status: Acute Plan to address problem: Cont Xanax hs (6) Pain management Current Visit: Yes Status: Acute Plan to address problem: IV Dilaudid 1 mg q3 prn along with IV Zofran (7) HTN (hypertension) Current Visit: No Status: Chronic Qualifiers: Hypertension type: essential hypertension Qualified Code(s): I10 - Essential (primary) hypertension Plan to address problem: Cont antihypertensives (8) DVT prophylaxis Current Visit: No Status: Acute Plan to address problem: On Heparin and GI prophylaxis
[2020-02-07] MEDS ORDERED: SODIUM CHLORIDE 0.9% 1000 ML 1,000 ML IV ONE (11:00)
[2020-02-07] MEDS: METOCLOPRAMIDE 10 MG/2 ML INJ IV PRN ×2 (11:09→21:07)
--- NOTE | 2020-02-07 12:05 | Consultation ---
History of Present Illness - Reason for Consult Consult date: 02/07/20 Multiple pustules near genital area, abscesses s/p I&D Requesting physician: VIANNEY STOKES - History of Present Illness The patient is a 49-year-old female with obesity, hypertension, history of spinal stenosis, h/o left tibial hardware, seen by us during her previous hospitalizations, most recently in May 2019 for an infected gluteal wound requiring excisional debridement. 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 She has been quite noncompliant with clinic appointments as well as with wound care clinic appointments. She has been admitted this time on 02/06/2020 with fever and gluteal and rectal pain going on for about 4 days prior to admission. She has been seen by general surgery and on 02/06/2020, she underwent incision and drainage of left gluteal abscess with debridement of abscess cavity along with drainage of labial abscesses. As per the intraoperative findings, the gluteal wound was found to have chronic granulation tissue and an old abscess cavity with no purulence. Both labia showed purulent drainage. Infectious diseases has been consulted for antibiotic recommendations. Patient is currently under isolation due to COVID test pending. Review of Systems: Fever +. Limited due to COVID test pending. Past History Past Medical History: hyperlipidemia, other (chronic pain, perirectal abscess, anxiety) Past Surgical History: Other (incision and drainage perirectal abscess, exicisional debridement of gluteal wound) Social history: no significant social history Family history: no significant family history Medications and Allergies Allergies Allergy/AdvReac Type Severity Reaction Status Date / Time aspirin Allergy Swelling Verified 04/11/19 11:09 hydroxyzine HCl Allergy Anaphylaxis Verified 04/11/19 11:09 [From Vistaril] hydroxyzine pamoate Allergy Anaphylaxis Verified 04/11/19 11:09 [From Vistaril] ketorolac tromethamine Allergy Swelling Verified 04/11/19 11:09 [From Toradol] Penicillins Allergy Anaphylaxis Verified 04/11/19 11:09 tramadol Allergy Shortness Verified 04/11/19 11:09 of Breath vancomycin Allergy Rash Verified 04/11/19 11:09 Home Medications Medication Instructions Recorded Confirmed Last Taken Type Cyclobenzaprine [Flexeril 10 MG 10 mg PO TID PRN 05/07/19 02/06/20 Unknown History TAB] Simvastatin 10 mg PO DAILY 05/07/19 02/06/20 Unknown History ALPRAZolam [Xanax TAB] 2 mg PO QHS PRN #15 tablet 05/12/19 02/06/20 Unknown Rx levoFLOXacin [Levaquin] 750 mg PO QDAY #7 tablet 05/12/19 02/06/20 Unknown Rx Sulfamethoxazole/Trimethoprim 1 each PO BID #14 tablet 02/02/20 02/06/20 Unknown Rx [Bactrim DS TAB] Active Meds: Active Medications Acetaminophen (Tylenol) 650 mg PO Q4H PRN PRN Reason: Pain, Mild (1-3) Hydromorphone HCl (Dilaudid) 0.5 mg IV Q10MIN PRN PRN Reason: Pain , Severe (7-10) Stop: 02/07/20 16:02 Last Admin: 02/06/20 16:40 Dose: 0.5 mg Documented by: Clindamycin HCl (Cleocin 600 Mg/50 Ml) 600 mg in 50 mls @ 100 mls/hr IV Q8HR JASON; Protocol Last Admin: 02/07/20 05:28 Dose: 100 mls/hr Documented by: Metoclopramide HCl (Reglan) 10 mg IV Q6H PRN PRN Reason: Nausea And Vomiting Last Admin: 02/07/20 11:09 Dose: 10 mg Documented by: Morphine Sulfate (Morphine) 2 mg IV Q4H PRN PRN Reason: Pain, Moderate (4-6) Last Admin: 02/07/20 06:35 Dose: 2 mg Documented by: Ondansetron HCl (Zofran) 4 mg IV Q4H PRN PRN Reason: Nausea And Vomiting Oxycodone HCl (Roxicodone) 5 mg PO Q4H PRN PRN Reason: Pain, Moderate (4-6) Physical Examination - Physical Exam Narrative exam: Physical Exam (reviewed in chart due to PPE conservation) Constitutional: limited due to PPE conservation strategy Head, Ears, Nose: limited due to PPE conservation strategy Eyes: limited due to PPE conservation strategy Neck: limited due to PPE conservation strategy Oral: limited due to PPE conservation strategy Cardiovascular: limited due to PPE conservation strategy Respiratory: limited due to PPE conservation strategy GI: limited due to PPE conservation strategy Musculoskeletal: limited due to PPE conservation strategy Skin: limited due to PPE conservation strategy Hem/Lymphatic: limited due to PPE conservation strategy Psych: limited due to PPE conservation strategy Neurological: limited due to PPE conservation strategy - Constitutional Vitals: Vital Signs Temp Pulse Resp BP Pulse Ox 99.6 F 111 H 16 97/53 95 02/07/20 10:35 02/07/20 10:35 02/07/20 10:35 02/07/20 10:35 02/07/20 10:35 Temperature -Last 24 Hours Temperature 99.6 F Temperature 99.5 F Temperature 102.9 F Temperature 99.0 F Temperature 98.8 F Temperature 100.1 F Temperature 100.3 F Temperature 99.6 F Results - Labs CBC & Chem 7: 02/07/20 07:16 02/07/20 07:16 Labs: Abnormal lab results 02/06/20 02/07/20 02/07/20 Range/Units 10:46 07:16 07:16 WBC 14.3 H (4.5-11.0) K/mm3 Sodium 133 L (137-145) mmol/L Chloride 93.5 L (98-107) mmol/L Creatinine 0.6 L (0.7-1.2) mg/dL Lactic Acid 2.10 H* (0.7-2.0) mmol/L - Imaging and Cardiology Chest x-ray: report reviewed, image reviewed (no pneumonia) CT scan - pelvis: report reviewed, image reviewed (perineal cellulitis, b/l inguinal lymph nodes) Assessment and Plan Cultures: 02/06/2020 blood culture: No growth A/P: 49-year-old female with obesity, hypertension, history of spinal stenosis, h/o left tibial hardware, seen by us during her previous hospitalizations, most recently in May 2019 for an infected gluteal wound requiring excisional debridement, has been non compliant, admitted with: #Sepsis secondary to chronic left gluteal abscess, cellulitis and bilateral labial abscesses, perineal cellulitis: On 02/06/2020: she underwent incision and drainage of left gluteal abscess with debridement of abscess cavity along with drainage of labial abscesses. As per the intraoperative findings, the gluteal wound was found to have chronic granulation tissue and an old abscess cavity with no purulence. Both labia showed purulent drainage. #PCN allergy #Noncompliance Recs: Based on review of previous cultures, patient has had growth of ESBL producing organisms as well as MRSA. Hence we have limited treatment options. There is a small risk of penicillin cross-reactivity however considering her risk of MDR organisms and previous culture history, it would be reasonable to give her a trial of IV meropenem Clindamycin discontinued IV vancomycin started, has h/o MRSA Follow-up operative cultures Catrachita Arcos MD, FACP [facility] C: [phone] O: [phone] F: [phone]
[2020-02-07] MEDS ORDERED: VANCOMYCIN PHARMACY TO DOSE IV SCH (13:00)
[2020-02-07] MEDS: VANCOMYCIN 1,500 MG in SODIUM CHLORIDE 0.9% 500 ML 500 ML IV SCH (13:22)
[2020-02-07] MEDS: MEROPENEM/NS 1 GRAM/100 ML 1 GRAM/100 ML BAG IV SCH ×2 (15:47→21:00)
--- NOTE | 2020-02-07 22:14 | Progress Note ---
Assessment and Plan - Patient Problems (1) SIRS (systemic inflammatory response syndrome) Current Visit: Yes Status: Acute Plan to address problem: Elevated Leukocyte count and Elevated Lactic acid levels IV Clindamycin for now (2) Cellulitis of left buttock Current Visit: Yes Status: Acute Plan to address problem: IV abx and Surgery consult (3) Cellulitis of perineum Current Visit: Yes Status: Acute Plan to address problem: IV abx and Surgery consultation--Appreciated (4) HLD (hyperlipidemia) Current Visit: No Status: Chronic Qualifiers: Hyperlipidemia type: mixed hyperlipidemia Qualified Code(s): E78.2 - Mixed hyperlipidemia Plan to address problem: COnt stains (5) ADRIANE (generalized anxiety disorder) Current Visit: Yes Status: Acute Plan to address problem: Cont Xanax hs (6) Pain management Current Visit: Yes Status: Acute Plan to address problem: IV Dilaudid 1 mg q3 prn along with IV Zofran (7) HTN (hypertension) Current Visit: No Status: Chronic Qualifiers: Hypertension type: essential hypertension Qualified Code(s): I10 - Essential (primary) hypertension Plan to address problem: Cont antihypertensives (8) DVT prophylaxis Current Visit: No Status: Acute Plan to address problem: On Heparin and GI prophylaxis Subjective Date of service: 02/07/20 Principal diagnosis: Left gluteal abscess/cellulitis Interval history: 49 yo F with hx of chronic low back pain, perirectal abscess who underwent incision and drainage of perirectal abscess on 02/16/19 and excisional debridement of perirectal/gluteal wound with drainage of abscess in May 2019. Patient is noncompliant and has only followed up in wound care clinic once but has presented to ER multiple times for c/o gluteal and rectal pain. Patient was in ER 4 days ago with c/o chronic abdominal pain, nausea. CT scan A/P at that time was unremarkable. She returns to ER today due to pain in the buttock region. She states she was started on abx by ER physician 4 days ago but has bee n experiencing increased pain in the left perirectal area, right gluteal area, and labia with swelling, redness for the last week. The antibiotics have not seemed to help. She has had fever up to 102-103. Symptomatically better Objective - Constitutional Vitals: Vital Signs - 12hr 02/07/20 02/07/20 02/07/20 10:22 10:23 10:27 Temperature Pulse Rate 110 H Respiratory Rate Blood Pressure 93/52 80/52 Blood Pressure [Right] O2 Sat by Pulse 95 Oximetry 02/07/20 02/07/20 02/07/20 10:35 12:18 14:43 Temperature 99.6 F 98.7 F Pulse Rate 111 H 107 H Respiratory 16 20 Rate Blood Pressure 95/57 92/50 Blood Pressure 97/53 [Right] O2 Sat by Pulse 95 93 Oximetry 02/07/20 16:57 Temperature 98.7 F Pulse Rate 109 H Respiratory 20 Rate Blood Pressure 114/74 Blood Pressure [Right] O2 Sat by Pulse 93 Oximetry General appearance: Present: no acute distress, well-nourished - EENT Eyes: PERRL, EOM intact ENT: hearing intact, clear oral mucosa Ears: bilateral: normal - Neck Neck: supple, normal ROM - Respiratory Respiratory effort: normal Respiratory: bilateral: CTA - Breasts Breasts: normal - Cardiovascular Heart rate: 78 Rhythm: regular Heart Sounds: Present: S1 & S2. Absent: gallop, rub Extremities: pulses intact, No edema, normal color, Full ROM - Gastrointestinal General gastrointestinal: Present: soft, non-tender, non-distended, normal bowel sounds - Genitourinary Female genitourinary: normal - Integumentary Integumentary: clear, warm, dry - Musculoskeletal Musculoskeletal: 1, strength equal bilaterally - Neurologic Neurologic: moves all extremities - Psychiatric Psychiatric: memory intact, appropriate mood/affect, intact judgment & insight - Labs CBC & Chem 7: 02/07/20 07:16 02/07/20 07:16 Labs: Abnormal lab results 02/07/20 02/07/20 Range/Units 07:16 07:16 WBC 14.3 H (4.5-11.0) K/mm3 Sodium 133 L (137-145) mmol/L Chloride 93.5 L (98-107) mmol/L Creatinine 0.6 L (0.7-1.2) mg/dL
[2020-02-08] MEDS: VANCOMYCIN 1,500 MG in SODIUM CHLORIDE 0.9% 500 ML 500 ML IV SCH (01:34)
[2020-02-08] MEDS: MEROPENEM/NS 1 GRAM/100 ML 1 GRAM/100 ML BAG IV SCH (05:27)
[2020-02-08] MEDS: MORPHINE 2 MG/1 ML INJ IV PRN ×2 (05:43→09:19)
[2020-02-08] MEDS: METOCLOPRAMIDE 10 MG/2 ML INJ IV PRN ×2 (05:43→09:59)
--- NOTE | 2020-02-08 11:02 | Progress Note ---
Assessment and Plan 49 yo F s/p 1. Incision and drainage of left gluteal abscess with debridement of abscess cavity, 2. Drainage of labial abscesses, POD 2 Plan: 1. follow up intraop cx 2. prn PO pain control 3. IV abx per ID. Discussed with Dr. Arcos 4. warm compresses to right groin 5. sitz baths BID. 7. reg diet 8. OOB/ambulate Ok to dc from surgery standpoint once final antibiotic recs are made per ID. Discussed plan with patient. She states she will leave hospital today despite recommendations to stay for abx management. I explained to patient if she is not cleared for dc, she will be leaving AMA. Explained that without the appropriate abx treatment, infection will not resolve and wound healing will be very difficult. She understands and will leave AMA despite this. Thank you, please call with questions. Subjective Date of service: 02/08/20 Narrative: Pt seen and examined. No acute complaints. Tm 100. Pain controlled. Pt states she feels better. Objective Vital Signs - 12hr 02/08/20 02/08/20 02/08/20 01:02 05:38 08:31 Temperature 100.0 F H 98.8 F 98.9 F Pulse Rate 107 H 101 H 115 H Respiratory 18 18 20 Rate Blood Pressure 81/47 86/62 107/64 O2 Sat by Pulse 94 95 95 Oximetry - General physical appearance Narrative Exam: Gen.: Awake, alert, oriented 3. No apparent distress ENT: Trachea midline. No lymphadenopathy. No scleral icterus or conjunctival p allor CV: S1, S2 present Respiratory: No audible wheezes Extremities: No clubbing, cyanosis, edema Gluteal: No packing present in left gluteal wound. There is surrounding induration and erythema with minimal tenderness to palpation. There is no drainage. There is no fluctuance. The incision is clean, dry - Labs 02/07/20 07:16 02/07/20 07:16
--- NOTE | 2020-02-08 18:16 | Discharge Summary ---
Providers - Providers Date of Admission: 02/06/20 12:50 Date of discharge: 02/08/20 Attending physician: SUNITHA HILL 02/06/20 12:32 Consult to Physician [CONS] Stat Comment: Consulting Provider: VIANNEY STOKES Physician Instructions: Reason For Exam: left buttock cellulitis and abscess 02/06/20 16:13 Consult to Physician [CONS] Routine Comment: Consulting Provider: JORGE A MALLORY Physician Instructions: Reason For Exam: multiple pustules near genital area Consult to Wound/ET Nurse [CONS] Routine Reason For Exam: wound eval Primary care physician: CRYSTALLOGRAPHY TEACHER Hospitalization Condition: Serious Hospital course: Discussed plan with patient. She states she will leave hospital today despite recommendations to stay for abx management. I explained to patient if she is not cleared for dc, she will be leaving AMA. Explained that without the appropriate abx treatment, infection will not resolve and wound healing will be very difficult. She understands and will leave AMA despite this. Disposition: [id number] LEFT AGAINST MED ADVICE - Discharge Diagnoses (1) SIRS (systemic inflammatory response syndrome) Status: Acute (2) Cellulitis of left buttock Status: Acute (3) Cellulitis of perineum Status: Acute (4) HLD (hyperlipidemia) Status: Chronic Qualifiers: Hyperlipidemia type: mixed hyperlipidemia Qualified Code(s): E78.2 - Mixed hyperlipidemia (5) ADRIANE (generalized anxiety disorder) Status: Acute (6) Pain management Status: Acute (7) HTN (hypertension) Status: Chronic Qualifiers: Hypertension type: essential hypertension Qualified Code(s): I10 - Essential (primary) hypertension (8) DVT prophylaxis Status: Acute Core Measure Documentation - Palliative Care Palliative Care/ Comfort Measures: Not Applicable - Core Measures Any of the following diagnoses?: none Exam - Constitutional Vitals: Temp Pulse Resp BP Pulse Ox 98.9 F 115 H 20 107/64 95 02/08/20 08:31 02/08/20 08:31 02/08/20 08:31 02/08/20 08:31 02/08/20 08:31 Plan Follow up with: VIANNEY STOKES DO [Staff Physician] - 7 Days PRIMARY CARE, [Primary Care Provider] - 3-5 Days
[2020-02-10 11:44] VITALS: BP 107/64
== END 2020-02-08 12:00 | disposition left against medical advice (07) | DRG 571 ==
LOC: ED 09:00 → 4A 12:50 → IMCU 14:30 → 4A 02-07 18:10
PROVIDERS: ADMIT Internal Medicine; ATTEND Internal Medicine
PROC: 0JB90ZZ Excision of Buttock Subcutaneous Tissue and Fascia, Open Approach (ICD-10-PCS; principal; 2020-02-06)
DX: L02.31 Cutaneous abscess of buttock (principal); N76.4 Abscess of vulva; L03.315 Cellulitis of perineum; R65.10 Systemic inflammatory response syndrome (SIRS) of non-infectious origin without acute organ dysfunction; L03.317 Cellulitis of buttock; R07.9 Chest pain, unspecified; E78.2 Mixed hyperlipidemia; F41.1 Generalized anxiety disorder; M54.5 Low back pain; G89.29 Other chronic pain; Z88.8 Allergy status to other drugs, medicaments and biological substances; Z88.6 Allergy status to analgesic agent; Z88.1 Allergy status to other antibiotic agents; Z88.0 Allergy status to penicillin
CPT/HCPCS: 36415; 71045; 74177; 80048; 80053; 82140; 84484; 85025; 85027; 85652; 86140; 87040; 87075; 87116; 87186; 93005; G0378; J1170; J2175; J2185; J2270; J2370; J2405; J2704; J2765; J3010; J3370; J7030; J7040; Q9967; U0003; U0003-CS

== ENCOUNTER 2020-02-16 08:14 | Outpatient (CLI) | payer MEDICAID ==
[2020-02-16] MEDS ORDERED: LIDOCAINE (4%) 40 MG/ML TOPICAL SOLN 50 ML BOTTLE TP ONE (09:00)
== END 2020-02-16 08:15 | disposition home or self-care (01) ==
LOC: WOUND 08:14
PROVIDERS: ATTEND Surgery
DX: L02.31 Cutaneous abscess of buttock (principal); L03.116 Cellulitis of left lower limb; A49.02 Methicillin resistant Staphylococcus aureus infection, unspecified site; E78.5 Hyperlipidemia, unspecified; M19.90 Unspecified osteoarthritis, unspecified site; Z90.710 Acquired absence of both cervix and uterus; Z87.891 Personal history of nicotine dependence
CPT/HCPCS: 99215; G0463

== ENCOUNTER 2020-02-16 09:31 | Inpatient (IN) | payer MEDICAID ==
[2020-02-16] MEDS ORDERED: SODIUM CHLORIDE 0.9% 500 ML 500 ML IV ONE (09:44)
[2020-02-16 10:23] LABS: Bilirubin,Urine NEG (Negative); Blood,Urine NEG (Negative); Color,Urine Yellow (Yellow); Mucus,Urine FEW /HPF; Protein,Urine <15 mg/dL mg/dL (Negative); Urobilinogen,Urine < 2.0 mg/dL (<2.0)
--- NOTE | 2020-02-16 10:29 | XRay Report ---
CHEST 1 VIEW INDICATION / CLINICAL INFORMATION: possible Sepsis. COMPARISON: 02/06/2020 FINDINGS: SUPPORT DEVICES: None. HEART / MEDIASTINUM: No significant abnormality. LUNGS / PLEURA: No significant pulmonary or pleural abnormality. No pneumothorax. ADDITIONAL FINDINGS: No significant additional findings. IMPRESSION: No acute pulmonary or pleural abnormality. No change from 02/06/2020 Signer Name: Anuj Gaines MD FACR Signed: 02/16/2020 10:25 AM Workstation Name: [id number]
[2020-02-16 10:55] LABS: Basophils % (Auto) 0.1 % (0.0-1.8); Eosinophils % (Auto) 0.2 % (0.0-4.3); Lymphocytes % (Auto) 11.6 % (13.4-35.0); Monocytes % (Auto) 4.8 % (0.0-7.3)
[2020-02-16 10:59] LABS: INR 1.04 (0.87-1.13)
[2020-02-16 11:06] LABS: Hematocrit 33.7 % (30.3-42.9); Hemoglobin 11.1 gm/dl (10.1-14.3); Lymphocytes # (Auto) 1.7 K/mm3 (1.2-5.4); Mean Corpuscular HGB Conc 33 % (30-34); Mean Corpuscular Volume 88 fl (79-97); Monocytes # (Auto) 0.9 K/mm3 (0.0-0.8); Platelet Count 598 K/mm3 (140-440); Red Blood Count 3.84 M/mm3 (3.65-5.03)
[2020-02-16 11:12] LABS: Alanine Aminotransferase 14 units/L (7-56); Albumin 4.1 g/dL (3.9-5); BUN/Creatinine Ratio 18; Blood Urea Nitrogen 11 mg/dL (7-17); Calcium 9.4 mg/dL (8.4-10.2); Hemolysis Index 0
--- NOTE | 2020-02-16 11:47 | Emergency Department Report ---
ED General Adult HPI - General Chief complaint: Wound/Laceration Stated complaint: WOUND INFECTED/LFT KNEE PAIN Time Seen by Provider: 02/16/20 11:45 Source: patient Mode of arrival: Ambulatory Limitations: No Limitations - History of Present Illness Initial comments: This is a 49-year old female who has been here several times with various forms of cellulitis. She was recently admitted and discharged AGAINST MEDICAL ADVICE. She was found to have cellulitis of the left buttocks, perineum and a chronic perianal abscess. This was I&D. There was no perirectal communication. She was seen by her surgeon in the office today. I am told that the surgeon felt like the operative site looked fine. However the surgeon noted that her left knee was red and consistent with cellulitis. Reviewing her prior medical records she has had cellulitis of the left knee prior. She does have prior operative reduction internal fixation with a peter in her left knee. She is not known to have a history of osteomyelitis. She states that she is taking oral antibiotics. She was recently treated with aztreonam and linezolid as an inpatient. Patient states that she has had a fever and chills for perhaps up to 4 days. She is noted that her left knee area has been red and swollen for at least this period of time. She does have a history of medical noncompliance. Recent Discharge Summary (AMA): Hospitalization Condition: Serious Hospital course: Discussed plan with patient. She states she will leave hospital today despite recommendations to stay for abx management. I explained to patient if she is not cleared for dc, she will be leaving AMA. Explained that without the appropriate abx treatment, infection will not resolve and wound healing will be very difficult. She understands and will leave AMA despite this. Disposition: DC-[id number] LEFT AGAINST MED ADVICE - Discharge Diagnoses (1) SIRS (systemic inflammatory response syndrome) Status: Acute (2) Cellulitis of left buttock Status: Acute (3) Cellulitis of perineum Status: Acute (4) HLD (hyperlipidemia) Status: Chronic Qualifiers: Hyperlipidemia type: mixed hyperlipidemia Qualified Code(s): E78.2 - Mixed hyperlipidemia (5) ADRIANE (generalized anxiety disorder) Status: Acute (6) Pain management Status: Acute (7) HTN (hypertension) Status: Chronic Qualifiers: Hypertension type: essential hypertension Qualified Code(s): I10 - Essential (primary) hypertension Recent ID note: History of Present Illness - Reason for Consult Consult date: 02/07/20 Multiple pustules near genital area, abscesses s/p I&D Requesting physician: VIANNEY STOKES - History of Present Illness The patient is a 49-year-old female with obesity, hypertension, history of spinal stenosis, h/o left tibial hardware, seen by us during her previous hospitalizations, most recently in May 2019 for an infected gluteal wound requiring excisional debridement. 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 She has been quite noncompliant with clinic appointments as well as with wound care clinic appointments. She has been admitted this time on 02/06/2020 with fever and gluteal and rectal pain going on for about 4 days prior to admission. She has been seen by general surgery and on 02/06/2020, she underwent incision and drainage of left gluteal abscess with debridement of abscess cavity along with drainage of labial abscesses. As per the intraoperative findings, the gluteal wound was found to have chronic granulation tissue and an old abscess cavity with no purulence. Both labia showed purulent drainage. Infectious diseases has been consulted for antibiotic recommendations. Patient is currently under isolation due to COVID test pending. Review of Systems: Fever +. Limited due to COVID test pending. -: Gradual, days(s), week(s) Location: left, lower extremity Radiation: non-radiation Quality: aching Consistency: constant Improves with: none Worsens with: none Associated Symptoms: fever/chills Treatments Prior to Arrival: none - Related Data Home Medications Medication Instructions Recorded Confirmed Last Taken Cyclobenzaprine [Flexeril 10 MG 10 mg PO TID PRN 05/07/19 02/06/20 Unknown TAB] Simvastatin 10 mg PO DAILY 05/07/19 02/06/20 Unknown Previous Rx's Medication Instructions Recorded Last Taken Type ALPRAZolam [Xanax TAB] 2 mg PO QHS PRN #15 tablet 05/12/19 Unknown Rx levoFLOXacin [Levaquin] 750 mg PO QDAY #7 tablet 05/12/19 Unknown Rx Sulfamethoxazole/Trimethoprim 1 each PO BID #14 tablet 02/02/20 Unknown Rx [Bactrim DS TAB] Allergies Allergy/AdvReac Type Severity Reaction Status Date / Time aspirin Allergy Swelling Verified 02/16/20 09:41 hydroxyzine HCl Allergy Anaphylaxis Verified 02/16/20 09:41 [From Vistaril] hydroxyzine pamoate Allergy Anaphylaxis Verified 02/16/20 09:41 [From Vistaril] ketorolac tromethamine Allergy Swelling Verified 02/16/20 09:41 [From Toradol] Penicillins Allergy Anaphylaxis Verified 02/16/20 09:41 tramadol Allergy Shortness Verified 02/16/20 09:41 of Breath vancomycin Allergy Rash Verified 02/16/20 09:41 ED Review of Systems ROS: Stated complaint: WOUND INFECTED/LFT KNEE PAIN Other details as noted in HPI Constitutional: chills, fever Eyes: denies: eye pain, vision change ENT: denies: ear pain, throat pain Respiratory: denies: cough, shortness of breath, wheezing Cardiovascular: denies: chest pain, palpitations Endocrine: no symptoms reported Gastrointestinal: denies: abdominal pain, nausea Genitourinary: denies: urgency, dysuria Musculoskeletal: as per HPI. denies: back pain Skin: as per HPI, change in color. denies: lesions Neurological: denies: headache, weakness, paresthesias Psychiatric: denies: anxiety, depression Hematological/Lymphatic: denies: easy bleeding, easy bruising ED Past Medical Hx - Past Medical History Hx Hypertension: No Hx Heart Attack/AMI: No Hx Congestive Heart Failure: No Hx Diabetes: No Hx Deep Vein Thrombosis: No Hx Liver Disease: No Hx Renal Disease: No Hx Arthritis: Yes Hx Seizures: No Hx Asthma: No Hx COPD: No Hx HIV: No Additional medical history: chronic pain, hypercholesterolemia, sepsis in 2018, infected hardware in LLL removed 11/2018. spinal stenosis - Surgical History Hx Pacemaker: No Hx Internal Defibrillator: No Additional Surgical History: L leg fx repair. hyst. pelvic fx repair. Pt became septic due to infection caused by metal in LLL: removed early 2018 - Social History Smoking Status: Never Smoker Substance Use Type: None - Medications Home Medications: Home Medications Medication Instructions Recorded Confirmed Last Taken Type Cyclobenzaprine [Flexeril 10 MG 10 mg PO TID PRN 05/07/19 02/06/20 Unknown History TAB] Simvastatin 10 mg PO DAILY 05/07/19 02/06/20 Unknown History ALPRAZolam [Xanax TAB] 2 mg PO QHS PRN #15 tablet 05/12/19 02/06/20 Unknown Rx levoFLOXacin [Levaquin] 750 mg PO QDAY #7 tablet 05/12/19 02/06/20 Unknown Rx Sulfamethoxazole/Trimethoprim 1 each PO BID #14 tablet 02/02/20 02/06/20 Unknown Rx [Bactrim DS TAB] ED Physical Exam - General Limitations: No Limitations General appearance: alert, in no apparent distress - Head Head exam: Present: atraumatic, normocephalic - Eye Eye exam: Present: normal appearance. Absent: scleral icterus - ENT ENT exam: Present: mucous membranes moist - Neck Neck exam: Present: normal inspection. Absent: tenderness, meningismus - Respiratory Respiratory exam: Present: normal lung sounds bilaterally. Absent: respiratory distress - Cardiovascular Cardiovascular Exam: Present: normal rhythm, tachycardia. Absent: systolic murmur, diastolic murmur, rubs, gallop - GI/Abdominal GI/Abdominal exam: Present: soft, normal bowel sounds. Absent: distended, tenderness, guarding, rebound - Extremities Exam Extremities exam: Present: other (Erythema and induration over the entire knee and to the proximal tibia area. I do not detect a significant knee effusion per se. The entire area is warm and red consistent with cellulitis.) - Back Exam Back exam: Present: normal inspection - Neurological Exam Neurological exam: Present: alert, oriented X3. Absent: CN II-XII intact, motor sensory deficit - Psychiatric Psychiatric exam: Present: normal affect, normal mood - Skin Skin exam: Present: warm, dry, intact, normal color. Absent: rash - Other Other exam information: No neurovascular compromise noted ED Course Vital Signs 02/16/20 02/16/20 02/16/20 09:38 12:09 13:00 Temperature 99.3 F Pulse Rate 122 H 219 H 116 H Respiratory 16 20 17 Rate Blood Pressure 123/84 116/77 O2 Sat by Pulse 100 99 100 Oximetry 02/16/20 14:01 Temperature Pulse Rate 118 H Respiratory 13 Rate Blood Pressure 116/77 O2 Sat by Pulse 98 Oximetry ED Medical Decision Making - Lab Data Result diagrams: 02/16/20 10:30 02/16/20 10:30 Laboratory Results - last 24 hr 02/16/20 02/16/20 02/16/20 09:57 10:30 10:30 WBC 15.8 H RBC 3.84 Hgb 11.1 Hct 33.7 MCV 88 MCH 29 MCHC 33 RDW 14.0 Plt Count 598 H Lymph % (Auto) 11.6 L [place] % (Auto) 4.8 Eos % (Auto) 0.2 Baso % (Auto) 0.1 Lymph # 1.7 [place] # 0.9 H Eos # 0.0 Baso # 0.0 Seg Neutrophils % 83.3 H Seg Neutrophils # 13.1 H PT 13.7 INR 1.04 Sodium Potassium Chloride Carbon Dioxide Anion Gap BUN Creatinine Estimated GFR BUN/Creatinine Ratio Glucose Lactic Acid Calcium Total Bilirubin AST ALT Alkaline Phosphatase Total Protein Albumin Albumin/Globulin Ratio HCG, Qual Urine Color Yellow Urine Turbidity Clear Urine pH 5.0 Ur Specific [place] 1.021 Urine Protein <15 mg/dl Urine Glucose (UA) Neg Urine Ketones Neg Urine Blood Neg Urine Nitrite Neg Ur Reducing Substances Not Reportable Urine Bilirubin Neg Urine Ictotest Not Reportable Urine Urobilinogen < 2.0 Ur Leukocyte Esterase Neg Urine WBC (Auto) 1.0 Urine RBC (Auto) 3.0 U Epithel Cells (Auto) 3.0 Urine Mucus Few 02/16/20 02/16/20 02/16/20 10:30 10:30 10:30 WBC RBC Hgb Hct MCV MCH MCHC RDW Plt Count Lymph % (Auto) [place] % (Auto) Eos % (Auto) Baso % (Auto) Lymph # [place] # Eos # Baso # Seg Neutrophils % Seg Neutrophils # PT INR Sodium 133 L Potassium 3.8 Chloride 94.6 L Carbon Dioxide 25 Anion Gap 17 BUN 11 Creatinine 0.6 L Estimated GFR > 60 BUN/Creatinine Ratio 18 Glucose 146 H Lactic Acid 1.80 Calcium 9.4 Total Bilirubin 0.30 AST 11 ALT 14 Alkaline Phosphatase 99 Total Protein 8.2 Albumin 4.1 Albumin/Globulin Ratio 1.0 HCG, Qual Negative Urine Color Urine Turbidity Urine pH Ur Specific [place] Urine Protein Urine Glucose (UA) Urine Ketones Urine Blood Urine Nitrite Ur Reducing Substances Urine Bilirubin Urine Ictotest Urine Urobilinogen Ur Leukocyte Esterase Urine WBC (Auto) Urine RBC (Auto) U Epithel Cells (Auto) Urine Mucus Laboratory Results - last 24 hr 02/16/20 02/16/20 02/16/20 09:57 10:30 10:30 WBC 15.8 H RBC 3.84 Hgb 11.1 Hct 33.7 MCV 88 MCH 29 MCHC 33 RDW 14.0 Plt Count 598 H Lymph % (Auto) 11.6 L [place] % (Auto) 4.8 Eos % (Auto) 0.2 Baso % (Auto) 0.1 Lymph # 1.7 [place] # 0.9 H Eos # 0.0 Baso # 0.0 Seg Neutrophils % 83.3 H Seg Neutrophils # 13.1 H PT 13.7 INR 1.04 VBG pH Sodium Potassium Chloride Carbon Dioxide Anion Gap BUN Creatinine Estimated GFR BUN/Creatinine Ratio Glucose Lactic Acid Calcium Total Bilirubin AST ALT Alkaline Phosphatase Total Protein Albumin Albumin/Globulin Ratio HCG, Qual Urine Color Yellow Urine Turbidity Clear Urine pH 5.0 Ur Specific [place] 1.021 Urine Protein <15 mg/dl Urine Glucose (UA) Neg Urine Ketones Neg Urine Blood Neg Urine Nitrite Neg Ur Reducing Substances Not Reportable Urine Bilirubin Neg Urine Ictotest Not Reportable Urine Urobilinogen < 2.0 Ur Leukocyte Esterase Neg Urine WBC (Auto) 1.0 Urine RBC (Auto) 3.0 U Epithel Cells (Auto) 3.0 Urine Mucus Few 02/16/20 02/16/20 02/16/20 10:30 10:30 10:30 WBC RBC Hgb Hct MCV MCH MCHC RDW Plt Count Lymph % (Auto) [place] % (Auto) Eos % (Auto) Baso % (Auto) Lymph # [place] # Eos # Baso # Seg Neutrophils % Seg Neutrophils # PT INR VBG pH Sodium 133 L Potassium 3.8 Chloride 94.6 L Carbon Dioxide 25 Anion Gap 17 BUN 11 Creatinine 0.6 L Estimated GFR > 60 BUN/Creatinine Ratio 18 Glucose 146 H Lactic Acid 1.80 Calcium 9.4 Total Bilirubin 0.30 AST 11 ALT 14 Alkaline Phosphatase 99 Total Protein 8.2 Albumin 4.1 Albumin/Globulin Ratio 1.0 HCG, Qual Negative Urine Color Urine Turbidity Urine pH Ur Specific [place] Urine Protein Urine Glucose (UA) Urine Ketones Urine Blood Urine Nitrite Ur Reducing Substances Urine Bilirubin Urine Ictotest Urine Urobilinogen Ur Leukocyte Esterase Urine WBC (Auto) Urine RBC (Auto) U Epithel Cells (Auto) Urine Mucus 02/16/20 12:39 WBC RBC Hgb Hct MCV MCH MCHC RDW Plt Count Lymph % (Auto) [place] % (Auto) Eos % (Auto) Baso % (Auto) Lymph # [place] # Eos # Baso # Seg Neutrophils % Seg Neutrophils # PT INR VBG pH 7.438 H Sodium Potassium Chloride Carbon Dioxide Anion Gap BUN Creatinine Estimated GFR BUN/Creatinine Ratio Glucose Lactic Acid Calcium Total Bilirubin AST ALT Alkaline Phosphatase Total Protein Albumin Albumin/Globulin Ratio HCG, Qual Urine Color Urine Turbidity Urine pH Ur Specific [place] Urine Protein Urine Glucose (UA) Urine Ketones Urine Blood Urine Nitrite Ur Reducing Substances Urine Bilirubin Urine Ictotest Urine Urobilinogen Ur Leukocyte Esterase Urine WBC (Auto) Urine RBC (Auto) U Epithel Cells (Auto) Urine Mucus - Radiology Data Radiology results: report reviewed (Chest x-ray no acute process. A CT report is pending.), image reviewed Critical care attestation.: If time is entered above; I have spent that time in minutes in the direct care of this critically ill patient, excluding procedure time. ED Disposition Clinical Impression: Cellulitis of lower extremity Qualifiers: Laterality: left Qualified Code(s): L03.116 - Cellulitis of left lower limb Disposition: 09 OP ADMIT IP TO THIS HOSP Is pt being admited?: Yes Does the pt Need Aspirin: No Condition: Stable Referrals: PRIMARY MD JOVITA [Primary Care Provider] - 3-5 Days Time of Disposition: 14:47
[2020-02-16] MEDS ORDERED: MEROPENEM/NS 1 GRAM/100 ML 1 GRAM/100 ML BAG IV ONE (12:03)
[2020-02-16] MEDS ORDERED: MORPHINE 2 MG/1 ML INJ IV ONE (12:04)
[2020-02-16] MEDS ORDERED: ONDANSETRON 4 MG/2 ML INJ IV ONE (12:04)
--- NOTE | 2020-02-16 13:29 | History and Physical Report ---
History of Present Illness Chief complaint: My leg is swollen and it hurts History of present illness: 49 YO Female with GERD, HTN, HLD, Osteomyelitis S/P PICC line placement, Perirectal Abscess S/P I&D presents to ED for evaluation. Patient states that she had experienced pain, and redness to her left leg over the past 1 week with worsening symptoms over the past 3 days. Pt states that the pain is 7/10, constant, worse with sitting/movement, relieved with nonmovement. Pt states that she was seen and evaluated by her wound care surgeon in the office today and was found to have the aforementioned findings. Patient was instructed to seek further care. Patient transported via private vehicle to [facility] for further evaluation and care. Pt seen and evaluated in the emergency department. Lab and imaging studies reviewed. Patient underwent a CT scan of the left lower extremity and was found to have left lower extremity cellulitis complicated by left knee abscess, as well as SIRS. Orthopedic surgery team consulted in ED. patient initiated on IV antibiotic therapy and admitted to the surgical floor. Pt denies CP, Palpitations, Chills, Trauma, BRBPR, Unintentional weight loss, night sweats, or recent ill contacts, or known exposure to COVID-19. Prior admission on 02/06/2020 reviewed. All listed medication reconciled at time of admission. Past History Past Medical History: GERD, hypertension, hyperlipidemia Past Surgical History: hysterectomy, Other ( L leg fx repair. pelvic fx repair. metal in LLL: removed early 2018) Social history: . denies: smoking, alcohol abuse Family history: hypertension Medications and Allergies Allergies Allergy/AdvReac Type Severity Reaction Status Date / Time aspirin Allergy Swelling Verified 02/16/20 09:41 hydroxyzine HCl Allergy Anaphylaxis Verified 02/16/20 09:41 [From Vistaril] hydroxyzine pamoate Allergy Anaphylaxis Verified 02/16/20 09:41 [From Vistaril] ketorolac tromethamine Allergy Swelling Verified 02/16/20 09:41 [From Toradol] Penicillins Allergy Anaphylaxis Verified 02/16/20 09:41 tramadol Allergy Shortness Verified 02/16/20 09:41 of Breath vancomycin Allergy Rash Verified 02/16/20 09:41 Home Medications Medication Instructions Recorded Confirmed Last Taken Type Cyclobenzaprine [Flexeril 10 MG 10 mg PO TID PRN 05/07/19 02/06/20 Unknown History TAB] Simvastatin 10 mg PO DAILY 05/07/19 02/06/20 Unknown History ALPRAZolam [Xanax TAB] 2 mg PO QHS PRN #15 tablet 05/12/19 02/06/20 Unknown Rx levoFLOXacin [Levaquin] 750 mg PO QDAY #7 tablet 05/12/19 02/06/20 Unknown Rx Sulfamethoxazole/Trimethoprim 1 each PO BID #14 tablet 02/02/20 02/06/20 Unknown Rx [Bactrim DS TAB] Active Meds: Active Medications Linezolid (Zyvox 600mg/300ml) 600 mg in 300 mls @ 300 mls/hr IV Q12HR JASON; Protocol Review of Systems Constitutional: no weight loss, no weight gain, no fever, no chills Ears, nose, mouth and throat: no ear pain, no ear discharge, no tinnitis, no decreased hearing, no nose pain Breasts: no change in shape, no swelling, no mass Cardiovascular: no chest pain, no orthopnea, no palpitations, no rapid/irregular heart beat, no edema Respiratory: no cough, no cough with sputum, no excessive sputum, no hemoptysis, no shortness of breath Gastrointestinal: no abdominal pain, no nausea, no vomiting, no diarrhea, no constipation Genitourinary Female: no pelvic pain, no flank pain, no menorrhagia, no dysuria, no urinary frequency, no urgency Rectal: no pain, no incontinence, no bleeding Musculoskeletal: no neck stiffness, no neck pain, no shooting arm pain, no arm numbness/tingling, no low back pain Integumentary: no rash, no pruritis, no redness, no sores, no wounds, no jaundice Neurological: no transient paralysis, no paralysis, no weakness, no parathesias, no numbness, no tingling Psychiatric: no anxiety, no memory loss, no change in sleep habits, no sleep disturbances, no insomnia, no hypersomnia, no change in appetite, no change in libido Endocrine: no cold intolerance, no heat intolerance, no excessive thirst, no polydipsia, no nocturia Hematologic/Lymphatic: no easy bruising, no easy bleeding, no lymphadenopathy Allergic/Immunologic: no urticaria, no allergic rhinitis, no wheezing, no persistent infections, no angioedema Exam - Constitutional Vitals: Temp Pulse Resp BP Pulse Ox 99.3 F 122 H 16 123/84 100 02/16/20 09:38 02/16/20 09:38 02/16/20 09:38 02/16/20 09:38 02/16/20 09:38 General appearance: Present: mild distress - EENT Eyes: Present: PERRL ENT: hearing intact, clear oral mucosa - Neck Neck: Present: supple, normal ROM - Respiratory Respiratory effort: normal Respiratory: bilateral: CTA - Cardiovascular Heart Sounds: Present: S1 & S2. Absent: rub, click - Extremities Extremities: pulses symmetrical, No edema Extremity abnormal: edema, erythema, tenderness, other (Left leg, left knee) Peripheral Pulses: within normal limits - Abdominal General gastrointestinal: Present: soft, non-tender, non-distended, normal bowel sounds Female genitourinary: Present: normal - Integumentary Integumentary: Present: clear, warm, dry - Musculoskeletal Musculoskeletal: gait normal, strength equal bilaterally - Psychiatric Psychiatric: appropriate mood/affect, intact judgment & insight - Neurologic Neurologic: CNII-XII intact, moves all extremities Results - Labs CBC & Chem 7: 02/16/20 10:30 02/16/20 10:30 Labs: Abnormal lab results 02/16/20 02/16/20 02/16/20 Range/Units 10:30 10:30 12:39 WBC 15.8 H (4.5-11.0) K/mm3 Plt Count 598 H (140-440) K/mm3 Lymph % (Auto) 11.6 L (13.4-35.0) % [place] # 0.9 H (0.0-0.8) K/mm3 Seg Neutrophils % 83.3 H (40.0-70.0) % Seg Neutrophils # 13.1 H (1.8-7.7) K/mm3 VBG pH 7.438 H (7.320-7.420) Sodium 133 L (137-145) mmol/L Chloride 94.6 L (98-107) mmol/L Creatinine 0.6 L (0.7-1.2) mg/dL Glucose 146 H (65-100) mg/dL Assessment and Plan - Patient Problems (1) SIRS (systemic inflammatory response syndrome) Current Visit: Yes Status: Acute Plan to address problem: CBC, CMP, CT LLE, IV antibiotic therapy, serial physical exam, (2) Abscess of left knee Current Visit: Yes Status: Acute Plan to address problem: Ortho surgery consulted, CT LLE, IV antibiotic therapy, CBC, CMP, supportive care, weight bearing as tolerated (3) Cellulitis of lower extremity Current Visit: Yes Status: Acute Qualifiers: Laterality: left Qualified Code(s): L03.116 - Cellulitis of left lower limb Plan to address problem: CBC, CMP, CT scan LLE, IV antibiotic therapy (4) DVT prophylaxis Current Visit: Yes Status: Acute Plan to address problem: SCD to BLE while in bed, prophylactic heparin
--- NOTE | 2020-02-16 14:50 | Cat Scan Report ---
CT left knee without contrast INDICATION : post op infection. TECHNIQUE: Axial imaging performed through the left knee without the use of contrast. All CT scans at this location are performed using CT dose reduction for ALARA by means of automated exposure contr ol. COMPARISON: Left leg radiograph from 10/30/2018 FINDINGS: There is old postoperative change along the lateral aspect of the proximal tibia and involv ing the metaphysis as well as the proximal diaphysis where there was previously a malleable plate. Th e patient appears to have had an osteotomy of the proximal tibia. The hardware has been removed and s crew tracts remain. There is soft tissue swelling along the lateral aspect of the knee with a small c ollection measuring 2.0 x 2.0 x 1.8 cm in AP, transverse, and craniocaudal dimensions on image 54 ser ies 2 and image 40 of series 301. A small air-fluid level is present within this collection. No focal bone destruction or periostitis is identified. There is some subtle sclerosis along the lateral richy in of the lateral tibial plateau which could be postoperative or could be seen with very mild chronic osteomyelitis. Otherwise there is mild tricompartmental degenerative arthrosis. No joint effusion. Normal alignment. IMPRESSION: Bony findings as outlined above with small abscess and soft tissue swelling along the lat eral aspect of the knee located at the level of the femorotibial joint space but does not appear to b e intra-articular. Postoperative findings with subtle sclerosis along the lateral aspect of the later al tibial plateau could be postoperative or could be seen with very mild chronic osteomyelitis. There is no evidence of acute osteomyelitis on this exam. Signer Name: Macario Ruiz MD Signed: 02/16/2020 2:45 PM Workstation Name: [id number]
[2020-02-16] MEDS ORDERED: ONDANSETRON 4 MG/2 ML INJ IV PRN (15:34)
[2020-02-16] MEDS ORDERED: NON-FORMULARY EACH (Alprazolam [Xanax Tab] 2 MG) PO PRN (15:36)
[2020-02-16] MEDS: LINEZOLID 600 MG/300 ML BAG IV SCH (15:41)
[2020-02-16] MEDS ORDERED: ACETAMINOPHEN 325 MG TAB ONE (17:29)
[2020-02-16] MEDS: ACETAMINOPHEN 325 MG TAB PO PRN (17:30)
[2020-02-16] MEDS: HEPARIN 5,000 UNIT/1 ML VIAL SUB-Q SCH (21:42)
[2020-02-16] MEDS: PRAVASTATIN 20 MG TAB PO SCH (21:42)
[2020-02-16] MEDS: MORPHINE 2 MG/1 ML INJ IV PRN (23:20)
[2020-02-17] MEDS: ALPRAZolam 1 MG TAB PO PRN ×2 (01:47→21:59)
[2020-02-17] MEDS: LINEZOLID 600 MG/300 ML BAG IV SCH ×3 (05:00→22:00)
[2020-02-17 06:46] LABS: Basophils % (Auto) 0.2 % (0.0-1.8); Eosinophils # (Auto) 0.1 K/mm3 (0.0-0.4); Eosinophils % (Auto) 0.6 % (0.0-4.3); Hematocrit 31.3 % (30.3-42.9); Hemoglobin 10.2 gm/dl (10.1-14.3); Lymphocytes # (Auto) 1.5 K/mm3 (1.2-5.4); Lymphocytes % (Auto) 11.6 % (13.4-35.0); Mean Corpuscular HGB Conc 33 % (30-34); Mean Corpuscular Volume 88 fl (79-97); Monocytes # (Auto) 1.2 K/mm3 (0.0-0.8); Monocytes % (Auto) 9.1 % (0.0-7.3); Platelet Count 532 K/mm3 (140-440); Red Blood Count 3.55 M/mm3 (3.65-5.03); Red Cell Distribution Width 14.2 % (13.2-15.2)
[2020-02-17 07:13] LABS: Alanine Aminotransferase 11 units/L (7-56); Albumin 3.8 g/dL (3.9-5); BUN/Creatinine Ratio 12; Blood Urea Nitrogen 7 mg/dL (7-17); Calcium 8.8 mg/dL (8.4-10.2); Hemolysis Index 7
[2020-02-17] MEDS ORDERED: NON-FORMULARY EACH (Simvastatin [Simvastatin] 10 MG) PO SCH (10:00)
[2020-02-17] MEDS: HEPARIN 5,000 UNIT/1 ML VIAL SUB-Q SCH ×2 (11:33→21:57)
[2020-02-17] MEDS: MORPHINE 2 MG/1 ML INJ IV PRN (12:10)
--- NOTE | 2020-02-17 14:32 | Consultation ---
History of Present Illness - HPI Consult date: 02/17/20 Consult reason: joint pain History of present illness: 49-year-old female who complains of left knee pain and swelling for the past several days, patient is well-known to me from previous hospital visit for infected hardware she is status post hardware removal patient was placed on IV antibiotics postop... Past History Past Medical History: GERD, hypertension, hyperlipidemia Past Surgical History: hysterectomy, Other ( L leg fx repair. pelvic fx repair. metal in LLL: removed early 2018) Social history: . denies: smoking, alcohol abuse Family history: hypertension Medications and Allergies Allergies Allergy/AdvReac Type Severity Reaction Status Date / Time aspirin Allergy Swelling Verified 02/16/20 09:41 hydroxyzine HCl Allergy Anaphylaxis Verified 02/16/20 09:41 [From Vistaril] hydroxyzine pamoate Allergy Anaphylaxis Verified 02/16/20 09:41 [From Vistaril] ketorolac tromethamine Allergy Swelling Verified 02/16/20 09:41 [From Toradol] Penicillins Allergy Anaphylaxis Verified 02/16/20 09:41 tramadol Allergy Shortness Verified 02/16/20 09:41 of Breath vancomycin Allergy Rash Verified 02/16/20 09:41 Home Medications Medication Instructions Recorded Confirmed Last Taken Type Cyclobenzaprine [Flexeril 10 MG 10 mg PO TID PRN 05/07/19 02/06/20 Unknown History TAB] Simvastatin 10 mg PO DAILY 05/07/19 02/06/20 Unknown History ALPRAZolam [Xanax TAB] 2 mg PO QHS PRN #15 tablet 05/12/19 02/06/20 Unknown Rx levoFLOXacin [Levaquin] 750 mg PO QDAY #7 tablet 05/12/19 02/06/20 Unknown Rx Sulfamethoxazole/Trimethoprim 1 each PO BID #14 tablet 02/02/20 02/06/20 Unknown Rx [Bactrim DS TAB] Active Meds: Active Medications Acetaminophen (Tylenol) 650 mg PO Q4H PRN PRN Reason: Pain MILD(1-3)/Fever >100.5/BURCIAGA Last Admin: 02/16/20 17:30 Dose: 650 mg Documented by: Alprazolam (Xanax) 2 mg PO QHS PRN PRN Reason: Insomnia Last Admin: 02/17/20 01:47 Dose: 2 mg Documented by: Cyclobenzaprine HCl (Flexeril) 10 mg PO TID PRN PRN Reason: Muscle Spasm Heparin Sodium (Porcine) (Heparin) 5,000 unit SUB-Q Q12HR [facility] Last Admin: 02/16/20 21:42 Dose: 5,000 unit Documented by: Linezolid (Zyvox 600mg/300ml) 600 mg in 300 mls @ 300 mls/hr IV Q12HR [facility]; Protocol Last Admin: 02/17/20 12:11 Dose: 300 mls/hr Documented by: Morphine Sulfate (Morphine) 2 mg IV Q4H PRN PRN Reason: Pain, Moderate (4-6) Last Admin: 02/17/20 12:10 Dose: 2 mg Documented by: Ondansetron HCl (Zofran) 4 mg IV Q8H PRN PRN Reason: Nausea And Vomiting Pravastatin Sodium (Pravachol) 20 mg PO QHS [facility] Last Admin: 02/16/20 21:42 Dose: 20 mg Documented by: Sodium Chloride (Sodium Chloride Flush Syringe 10 Ml) 10 ml IV BID [facility] Last Admin: 02/17/20 10:10 Dose: 10 ml Documented by: Sodium Chloride (Sodium Chloride Flush Syringe 10 Ml) 10 ml IV PRN PRN PRN Reason: LINE FLUSH Physical Examination - Physical exam Narrative exam: At the left knee patient is noted to have swelling at the previous incision with fluctuance there is overlying erythema active and passive range of motion of the knee were able to flex to 45 degrees is 0 degrees extension Eyes: PERRL ENT: Positive: clear oral mucosa Respiratory effort: normal Respiratory: bilateral: CTA Rhythm: regular Heart Sounds: Positive: S1 & S2 General gastrointestinal: Positive: soft, non-tender, non-distended, normal bowel sounds Integumentary: clear, warm, dry Neurologic: Positive: CNII-XII intact, moves all extremities, gait normal. Negative: focal deficits Assessment and Plan Abscess left proximal tibia Recommend incising and draining abscess this was done today at the bedside wound was packed open with iodoform gauze packing continue IV antibiotics
[2020-02-17] MEDS: HYDROmorphone 1 MG/1 ML INJ IV PRN ×2 (16:13→20:45)
[2020-02-17] MEDS: ACETAMINOPHEN 325 MG TAB PO PRN (16:26)
[2020-02-17] MEDS: PRAVASTATIN 20 MG TAB PO SCH (21:58)
--- NOTE | 2020-02-18 00:14 | Progress Note ---
Assessment and Plan - Patient Problems (1) SIRS (systemic inflammatory response syndrome) Current Visit: Yes Status: Acute Plan to address problem: Clinical picture c/w SIRS Has Temp Tachycardia and leukocytosis (2) Abscess of left knee Current Visit: Yes Status: Acute Plan to address problem: Ortho consult for I and D Iv abx (3) Cellulitis of left buttock Current Visit: No Status: Acute Plan to address problem: IV abx surgery consult for tomorrow Had I and D donr for l knee Indurated and no fluctuant mass (4) ADRIANE (generalized anxiety disorder) Current Visit: No Status: Chronic Plan to address problem: Cont anxiolytics (5) HLD (hyperlipidemia) Current Visit: No Status: Chronic Qualifiers: Hyperlipidemia type: mixed hyperlipidemia Qualified Code(s): E78.2 - Mixed hyperlipidemia Plan to address problem: Cont Statins (6) Hyponatremia Current Visit: Yes Status: Acute Plan to address problem: IV Ns for now (7) DVT prophylaxis Current Visit: Yes Status: Acute Plan to address problem: Heparinand GI prophylaxis Subjective Date of service: 02/17/20 Principal diagnosis: L knee abscess and perirectal abscess Interval history: 49 YO Female with GERD, HTN, HLD, Osteomyelitis S/P PICC line placement, Perirectal Abscess S/P I&D presents to ED for evaluation. Patient states that she had experienced pain, and redness to her left leg over the past 1 week with worsening symptoms over the past 3 days. Pt states that the pain is 7/10, constant, worse with sitting/movement, relieved with nonmovement. Pt states that she was seen and evaluated by her wound care surgeon in the office today and was found to have the aforementioned findings. Patient was instructed to seek further care. Patient transported via private vehicle to [facility] for further evaluation and care. Pt seen and evaluated in the emergency department. Lab and imaging studies reviewed. Patient underwent a CT scan of the left lower extremity and was found to have left lower extremity cellulitis complicated by left knee abscess, as well as SIRS. Orthopedic surgery team consulted in ED. patient initiated on IV antibiotic therapy and admitted to the surgical floor. Pt denies CP, Palpitations, Chills, Trauma, BRBPR, Unintentional weight loss, n ight sweats, or recent ill contacts, or known exposure to COVID-19. Prior admission on 02/06/2020 reviewed. All listed medication reconciled at time of admission. signed out AMA last visit without getting Abx. Objective - Constitutional Vitals: Vital Signs - 12hr 02/17/20 02/17/20 02/17/20 15:15 19:40 21:10 Temperature 100.1 F H 98.5 F Pulse Rate 122 H 105 H Respiratory 22 17 Rate Blood Pressure 104/71 100/65 O2 Sat by Pulse 95 95 96 Oximetry General appearance: Present: no acute distress, well-nourished - EENT Eyes: PERRL, EOM intact ENT: hearing intact, clear oral mucosa Ears: bilateral: normal - Neck Neck: supple, normal ROM - Respiratory Respiratory effort: normal Respiratory: bilateral: CTA - Breasts Breasts: normal - Cardiovascular Heart rate: 78 Rhythm: regular Heart Sounds: Present: S1 & S2. Absent: gallop, rub Extremities: pulses intact, No edema, normal color, Full ROM, abnormal (L kneeb swelling) - Gastrointestinal General gastrointestinal: Present: soft, non-tender, non-distended, normal bowel sounds, other (Lest Perirectal induration and swelling) Rectal Exam: other (Perirectal swelling and induration) - Genitourinary Female genitourinary: normal - Integumentary Integumentary: clear, warm, dry - Musculoskeletal Musculoskeletal: 1, strength equal bilaterally - Neurologic Neurologic: moves all extremities - Psychiatric Psychiatric: memory intact, appropriate mood/affect, intact judgment & insight - Labs CBC & Chem 7: 02/17/20 06:07 02/17/20 06:07 Labs: Abnormal lab results 02/17/20 02/17/20 Range/Units 06:07 06:07 WBC 13.0 H (4.5-11.0) K/mm3 RBC 3.55 L (3.65-5.03) M/mm3 Plt Count 532 H (140-440) K/mm3 Lymph % (Auto) 11.6 L (13.4-35.0) % [place] % (Auto) 9.1 H (0.0-7.3) % [place] # 1.2 H (0.0-0.8) K/mm3 Seg Neutrophils % 78.5 H (40.0-70.0) % Seg Neutrophils # 10.2 H (1.8-7.7) K/mm3 Sodium 134 L (137-145) mmol/L Chloride 94.5 L (98-107) mmol/L Creatinine 0.6 L (0.7-1.2) mg/dL Glucose 157 H (65-100) mg/dL Albumin 3.8 L (3.9-5) g/dL
[2020-02-18] MEDS ORDERED: AMPICILLIN/SULBACTA 3GM/100ML 3 GM/100 ML BAG IV SCH (01:00)
[2020-02-18] MEDS ORDERED: MEROPENEM/NS 500 MG/50 ML 500 MG/50 ML BAG IV ONE (01:00)
[2020-02-18] MEDS ORDERED: VANCOMYCIN PHARMACY TO DOSE IV SCH (01:00)
[2020-02-18] MEDS: HYDROmorphone 1 MG/1 ML INJ IV PRN ×6 (02:02→21:23)
[2020-02-18] MEDS: ACETAMINOPHEN 325 MG TAB PO PRN ×2 (08:18→15:28)
[2020-02-18] MEDS: HEPARIN 5,000 UNIT/1 ML VIAL SUB-Q SCH ×2 (10:15→21:25)
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
[2020-02-18] MEDS ORDERED: LIDOCAINE (1%) 10 MG/1 ML VIAL 20 ML MDV INFILTRATI ONE (11:15)
[2020-02-18] MEDS ORDERED: LIDOCAINE (4%) 40 MG/ML TOPICAL SOLN 50 ML BOTTLE TP ONE (12:00)
--- NOTE | 2020-02-18 14:33 | Consultation ---
History of Present Illness Consult date: 02/18/20 Chief complaint: Gluteal cellulitis, history of wound - History of present illness History of present illness: 49-year-old female with a history of a chronic gluteal/perirectal abscess who is well-known to me as she is status post multiple incision and drainage/debridements of the area. The patient was most recently seen in the wound care clinic on 02/16/2020 and found to have left knee cellulitis, induration, fluctuance. The patient had a history of a septic joint in the past with removal of hardware by Dr. Willis and it was recommended that she go to the emergency room for further evaluation. The patient also complained of fevers up to 101 degrees. The patient was hospitalized prior to this on 02/06/2020. At that time her main complaint was the gluteal pain and swelling. At that time she underwent incision and drainage of the gluteal abscess which revealed an empty cavity with chronic granulation tissue and drainage of labial abscess. Cultures grew MRSA however the patient left AMA despite recommendations of multiple physicians to stay for IV antibiotics. This admission, the patient underwent incision and drainage of the left knee abscess by Dr. Willis. General surgery was consulted to reevaluate the gluteal area and rule out residual abscess. Past History Past Medical History: GERD, hypertension, hyperlipidemia, other (Chronic perirectal/gluteal abscess, chronic pain) Past Surgical History: hysterectomy, Other ( L leg fx repair. pelvic fx repair. metal in LLL: removed early 2018, multiple incision and drainage of perirectal abscess) Social history: . denies: smoking, alcohol abuse Family history: hypertension Medications and Allergies Allergies Allergy/AdvReac Type Severity Reaction Status Date / Time aspirin Allergy Swelling Verified 02/16/20 09:41 hydroxyzine HCl Allergy Anaphylaxis Verified 02/16/20 09:41 [From Vistaril] hydroxyzine pamoate Allergy Anaphylaxis Verified 02/16/20 09:41 [From Vistaril] ketorolac tromethamine Allergy Swelling Verified 02/16/20 09:41 [From Toradol] Penicillins Allergy Anaphylaxis Verified 02/16/20 09:41 tramadol Allergy Shortness Verified 02/16/20 09:41 of Breath vancomycin Allergy Rash Verified 02/16/20 09:41 Home Medications Medication Instructions Recorded Confirmed Last Taken Type Cyclobenzaprine [Flexeril 10 MG 10 mg PO TID PRN 05/07/19 02/06/20 Unknown History TAB] Simvastatin 10 mg PO DAILY 05/07/19 02/06/20 Unknown History ALPRAZolam [Xanax TAB] 2 mg PO QHS PRN #15 tablet 05/12/19 02/06/20 Unknown Rx levoFLOXacin [Levaquin] 750 mg PO QDAY #7 tablet 05/12/19 02/06/20 Unknown Rx Sulfamethoxazole/Trimethoprim 1 each PO BID #14 tablet 02/02/20 02/06/20 Unknown Rx [Bactrim DS TAB] Active Meds: Active Medications Acetaminophen (Tylenol) 650 mg PO Q4H PRN PRN Reason: Pain MILD(1-3)/Fever >100.5/BURCIAGA Last Admin: 02/18/20 08:18 Dose: 650 mg Documented by: Alprazolam (Xanax) 2 mg PO QHS PRN PRN Reason: Insomnia Last Admin: 02/17/20 21:59 Dose: 2 mg Documented by: Cyclobenzaprine HCl (Flexeril) 10 mg PO TID PRN PRN Reason: Muscle Spasm Heparin Sodium (Porcine) (Heparin) 5,000 unit SUB-Q Q12HR [facility] Last Admin: 02/17/20 21:57 Dose: 5,000 unit Documented by: Hydromorphone HCl (Dilaudid) 0.5 mg IV Q3H PRN PRN Reason: Pain , Severe (7-10) Last Admin: 02/18/20 11:15 Dose: 0.5 mg Documented by: Linezolid (Zyvox 600mg/300ml) 600 mg in 300 mls @ 300 mls/hr IV Q12HR [facility]; Protocol Morphine Sulfate (Morphine) 2 mg IV Q4H PRN PRN Reason: Pain, Moderate (4-6) Last Admin: 02/17/20 12:10 Dose: 2 mg Documented by: Ondansetron HCl (Zofran) 4 mg IV Q8H PRN PRN Reason: Nausea And Vomiting Pravastatin Sodium (Pravachol) 20 mg PO QHS JASON Last Admin: 02/17/20 21:58 Dose: 20 mg Documented by: Sodium Chloride (Sodium Chloride Flush Syringe 10 Ml) 10 ml IV BID [facility] Last Admin: 02/18/20 11:15 Dose: 10 ml Documented by: Sodium Chloride (Sodium Chloride Flush Syringe 10 Ml) 10 ml IV PRN PRN PRN Reason: LINE FLUSH Review of Systems All systems: negative (10 point review systems was performed negative except for that listed in HPI) Exam Vital Signs Temp Pulse Resp BP Pulse Ox 99.3 F 122 H 16 123/84 100 02/16/20 09:38 02/16/20 09:38 02/16/20 09:38 02/16/20 09:38 02/16/20 09:38 Narrative exam: Gen.: Awake, alert, oriented 3. No apparent distress ENT: No scleral icterus or conjunctival pallor CV: S1, S2 present Respiratory: No audible wheezes Extremities: No clubbing, cyanosis, edema Gluteal: scarrer photos reviewed. Left buttock wounds with surrounding erythema and induration. There is no drainage from the wounds. Results - Labs 02/17/20 06:07 02/17/20 06:07 Assessment and Plan 49-year-old female with 1. sepsis 2. L knee abscess 3. Left gluteal wound, cellulitis, rule out abscess COVID testing on 02/06/[address] scan A/P 02/06/20 - reviewed Pt stable. Febrile. BP and HR stable. Induration and cellulitis of left gluteal area is unchanged from prior hospitalization on 02/05. Wound appears clean without drainage. Plan: 1. continue abx per ID 2. follow up L knee cultures 3. prn pain control 4. repeat CT pelvis with IV contrast to evaluate for abscess 5. 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 Further recs pending CT scan pelvis D/W Dr. Dixon Thank you, please call with questions Evaluation and treatment of this patient was during the time of the national and state emergency arising from COVID19 coronavirus pandemic. Treatment and procedures performed meet the current and available best practice and guidelines for patient during the COVID pandemic.
[2020-02-18] MEDS: LINEZOLID 600 MG/300 ML BAG IV SCH ×2 (15:28→21:22)
--- NOTE | 2020-02-18 15:33 | Progress Note ---
Assessment and Plan - Patient Problems (1) SIRS (systemic inflammatory response syndrome) Current Visit: Yes Status: Acute Plan to address problem: Clinical picture c/w SIRS Has Temp Tachycardia and leukocytosis (2) Abscess of left knee Current Visit: Yes Status: Acute Plan to address problem: Ortho consult for I and D Iv abx (3) Cellulitis of left buttock Current Visit: No Status: Acute Plan to address problem: IV abx surgery consult for tomorrow Had I and D donr for l knee Indurated and no fluctuant mass (4) ADRIANE (generalized anxiety disorder) Current Visit: No Status: Chronic Plan to address problem: Cont anxiolytics (5) HLD (hyperlipidemia) Current Visit: No Status: Chronic Qualifiers: Hyperlipidemia type: mixed hyperlipidemia Qualified Code(s): E78.2 - Mixed hyperlipidemia Plan to address problem: Cont Statins (6) Hyponatremia Current Visit: Yes Status: Acute Plan to address problem: IV Ns for now (7) DVT prophylaxis Current Visit: Yes Status: Acute Plan to address problem: Heparinand GI prophylaxis Subjective Date of service: 02/18/20 Principal diagnosis: L knee abscess and perirectal abscess Interval history: 49 YO Female with GERD, HTN, HLD, Osteomyelitis S/P PICC line placement, Perirectal Abscess S/P I&D presents to ED for evaluation. Patient states that she had experienced pain, and redness to her left leg over the past 1 week with worsening symptoms over the past 3 days. Pt states that the pain is 7/10, constant, worse with sitting/movement, relieved with nonmovement. Pt states that she was seen and evaluated by her wound care surgeon in the office today and was found to have the aforementioned findings. Patient was instructed to seek further care. Patient transported via private vehicle to [facility] for further evaluation and care. Pt seen and evaluated in the emergency department. Lab and imaging studies reviewed. Patient underwent a CT scan of the left lower extremity and was found to have left lower extremity cellulitis complicated by left knee abscess, as well as SIRS. Orthopedic surgery team consulted in ED. patient initiated on IV antibiotic therapy and admitted to the surgical floor. Pt denies CP, Palpitations, Chills, Trauma, BRBPR, Unintentional weight loss, n ight sweats, or recent ill contacts, or known exposure to COVID-19. Prior admission on 02/06/2020 reviewed. All listed medication reconciled at time of admission. signed out AMA last visit without getting Abx. Objective - Constitutional Vitals: Vital Signs - 12hr 02/18/20 02/18/20 02/18/20 04:31 07:30 07:59 Temperature 97.7 F 98.8 F Pulse Rate 89 114 H Respiratory 16 Rate Blood Pressure 91/61 108/71 Blood Pressure [Right] O2 Sat by Pulse 91 95 Oximetry 02/18/20 02/18/20 02/18/20 08:02 08:17 09:15 Temperature 100.0 F H 101.0 F H Pulse Rate Respiratory 20 Rate Blood Pressure Blood Pressure [Right] O2 Sat by Pulse Oximetry 02/18/20 11:27 Temperature 103.0 F H Pulse Rate 136 H Respiratory 20 Rate Blood Pressure Blood Pressure 115/61 [Right] O2 Sat by Pulse 99 Oximetry General appearance: Present: no acute distress, well-nourished - EENT Eyes: PERRL, EOM intact ENT: hearing intact, clear oral mucosa Ears: bilateral: normal - Neck Neck: supple, normal ROM - Respiratory Respiratory effort: normal Respiratory: bilateral: CTA - Breasts Breasts: normal - Cardiovascular Rhythm: regular Heart Sounds: Present: S1 & S2. Absent: gallop, rub Extremities: pulses intact, No edema, normal color, Full ROM - Gastrointestinal General gastrointestinal: Present: soft, non-tender, non-distended, normal bowel sounds - Genitourinary Female genitourinary: normal - Integumentary Integumentary: clear, warm, dry - Musculoskeletal Musculoskeletal: 1, strength equal bilaterally - Neurologic Neurologic: moves all extremities - Psychiatric Psychiatric: memory intact, appropriate mood/affect, intact judgment & insight - Labs CBC & Chem 7: 02/17/20 06:07 02/17/20 06:07
[2020-02-18] MEDS: PRAVASTATIN 20 MG TAB PO SCH (21:28)
[2020-02-18] MEDS: ALPRAZolam 1 MG TAB PO PRN (21:30)
[2020-02-19] MEDS: HYDROmorphone 1 MG/1 ML INJ IV PRN ×5 (01:10→21:56)
[2020-02-19 06:10] LABS: Basophils # (Auto) 0.1 K/mm3 (0.0-0.1); Basophils % (Auto) 0.5 % (0.0-1.8); Eosinophils # (Auto) 0.1 K/mm3 (0.0-0.4); Eosinophils % (Auto) 0.7 % (0.0-4.3); Hematocrit 31.2 % (30.3-42.9); Hemoglobin 10.1 gm/dl (10.1-14.3); Lymphocytes # (Auto) 1.6 K/mm3 (1.2-5.4); Lymphocytes % (Auto) 11.8 % (13.4-35.0); Mean Corpuscular HGB Conc 32 % (30-34); Mean Corpuscular Volume 86 fl (79-97); Monocytes # (Auto) 1.1 K/mm3 (0.0-0.8); Monocytes % (Auto) 8.3 % (0.0-7.3); Platelet Count 568 K/mm3 (140-440); Red Blood Count 3.62 M/mm3 (3.65-5.03)
[2020-02-19 06:25] LABS: Alanine Aminotransferase 12 units/L (7-56); Albumin 3.3 g/dL (3.9-5); BUN/Creatinine Ratio 12; Blood Urea Nitrogen 6 mg/dL (7-17); Calcium 8.9 mg/dL (8.4-10.2); Hemolysis Index 1
--- NOTE | 2020-02-19 08:33 | Cat Scan Report ---
CT PELVIS WITH CONTRAST HISTORY: Cellulitis of left buttock, evaluate for abscess. TECHNIQUE: Helical CT was performed following 100 cc of Omnipaque 300. Sagittal and coronal reformatt ed images. All CT scans at this location are performed using CT dose reduction for ALARA by means of automated exposure control. COMPARISON: CT abdomen pelvis dated 02/06/2020 FINDINGS: There is moderate subcutaneous edema/induration in the inferior and medial left buttock. Edema appear s slightly increased since the previous exam. The previously described 1 cm focus of mixed air and fl uid along the left gluteal cleft has resolved. There is however a new similar appearing collection co ntaining gas slightly more posterior measuring 1.9 x 1.8 cm in axial plane. This has the appearance o f early abscess formation. No large mature abscess is identified. The ischio rectal fossa is relative ly clean. No perianal or perirectal involvement is appreciated. The bladder, distal ureters and visua lized bowel loops and appendix in the pelvis are unremarkable. Hysterectomy changes are noted. IMPRESSION: Mild to moderate left gluteal cellulitis and small gas containing collection in the left gluteal subc utaneous tissues as outlined above. No acute intrapelvic abnormality is appreciated. Signer Name: Sergio Barron Jr, MD Signed: 02/19/2020 8:29 AM Workstation Name: [id number]
[2020-02-19] MEDS: HEPARIN 5,000 UNIT/1 ML VIAL SUB-Q SCH ×2 (09:00→21:56)
[2020-02-19] MEDS: LINEZOLID 600 MG/300 ML BAG IV SCH ×2 (09:03→21:55)
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
--- NOTE | 2020-02-19 11:56 | Progress Note ---
Assessment and Plan 49-year-old female with 1. sepsis 2. L knee abscess 3. Left gluteal wound, cellulitis, rule out abscess COVID testing on 02/06/[address] scan A/P 02/06/20 - reviewed Ct pelvis 02/18/20 - left gluteal cellulitis with air and fluid, possible early abscess formation Pt stable. AFebrile today. Induration and cellulitis of left gluteal area is unchanged from prior hospitalization on 02/05. I&D on 02/05 revealed a chronic abscess cavity without pus. The air seen on CT pelvis (as was seen on CT scan on 02/05) is likely residual abscess cavity and not necrotizing fasciitis. Plan: 1. continue abx per ID 2. follow up L knee cultures 3. prn pain control 4. local wound care as per hand sprayer 5. As patient continues to have residual abscess cavity seen on CT, will plan for incision and drainage, debridement of gluteal abscess with placement of wound vac. Pt will not tolerate bedside debridement due to pain. No time aftab ilable in OR today so patient added on to OR schedule for tomorrow. 6. NPO p MN tonight 7. Will order wound vac for home and home health care I explained the plan to the patient. I explained the importance of close follow up with wound vac as it needs to be changed at least 2x per week once she is discharged. She understands. Thank you, please call with questions Evaluation and treatment of this patient was during the time of the national and state emergency arising from COVID19 coronavirus pandemic. Treatment and procedures performed meet the current and available best practice and guidelines for patient during the COVID pandemic. Subjective Date of service: 02/19/20 Narrative: Pt seen and examined. Afebrile today. Having pain in gluteal area which is unchanged. States knee feels much better. Objective Vital Signs - 12hr 02/19/20 02/19/20 02/19/20 01:10 01:15 03:49 Temperature 98.1 F Pulse Rate 96 H Respiratory 18 18 Rate Blood Pressure 98/69 97/61 O2 Sat by Pulse 91 Oximetry 02/19/20 02/19/20 08:00 08:03 Temperature 99.3 F Pulse Rate 111 H Respiratory 18 Rate Blood Pressure 106/67 O2 Sat by Pulse 94 Oximetry - General physical appearance Narrative Exam: Gen: AAOx3. NAD CV: s1, S2+ Resp: even and unlabored Gluteal; L gluteal wounds are clean and dry. No active drainage. There is surrounding erythema and induration. No fluctuance. - Labs 02/19/20 05:23 02/19/20 05:23 Diabetes panel 02/18/20 02/19/20 Range/Units 15:00 05:23 Sodium 135 L (137-145) mmol/L Potassium 3.8 (3.6-5.0) mmol/L Chloride 93.2 L (98-107) mmol/L Carbon Dioxide 28 (22-30) mmol/L BUN 6 L (7-17) mg/dL Creatinine 0.5 L (0.7-1.2) mg/dL Glucose 118 H (65-100) mg/dL Hemoglobin A1c 5.5 (4-6) % Calcium 8.9 (8.4-10.2) mg/dL AST 11 (5-40) units/L ALT 12 (7-56) units/L Alkaline Phosphatase 93 (35-129) units/L Total Protein 7.7 (6.3-8.2) g/dL Albumin 3.3 L (3.9-5) g/dL Calcium panel 02/19/20 Range/Units 05:23 Calcium 8.9 (8.4-10.2) mg/dL Albumin 3.3 L (3.9-5) g/dL Pituitary panel 02/19/20 Range/Units 05:23 Sodium 135 L (137-145) mmol/L Potassium 3.8 (3.6-5.0) mmol/L Chloride 93.2 L (98-107) mmol/L Carbon Dioxide 28 (22-30) mmol/L BUN 6 L (7-17) mg/dL Creatinine 0.5 L (0.7-1.2) mg/dL Glucose 118 H (65-100) mg/dL Calcium 8.9 (8.4-10.2) mg/dL Adrenal panel 02/19/20 Range/Units 05:23 Sodium 135 L (137-145) mmol/L Potassium 3.8 (3.6-5.0) mmol/L Chloride 93.2 L (98-107) mmol/L Carbon Dioxide 28 (22-30) mmol/L BUN 6 L (7-17) mg/dL Creatinine 0.5 L (0.7-1.2) mg/dL Glucose 118 H (65-100) mg/dL Calcium 8.9 (8.4-10.2) mg/dL Total Bilirubin 0.20 (0.1-1.2) mg/dL AST 11 (5-40) units/L ALT 12 (7-56) units/L Alkaline Phosphatase 93 (35-129) units/L Total Protein 7.7 (6.3-8.2) g/dL Albumin 3.3 L (3.9-5) g/dL
[2020-02-19] MEDS: SODIUM CHLORIDE 0.9% 1000 ML 1,000 ML IV SCH (13:40)
--- NOTE | 2020-02-19 16:50 | Anesthesia Consultation ---
Anesthesia Consult and Med Hx Date of service: 02/19/20 - Airway Anesthetic Teeth Evaluation: Dentures ROM Head & Neck: Adequate Mental/Hyoid Distance: Adequate Mallampati Class: Class III Intubation Access Assessment: Possibly Difficult - Pre-Operative Health Status ASA Pre-Surgery Classification: ASA3 Proposed Anesthetic Plan: General - Pulmonary Hx Smoking: Yes (past smoker ) Hx Asthma: No Hx Respiratory Symptoms: No SOB: No COPD: No Home Oxygen Therapy: No Hx Pneumonia: No Hx Sleep Apnea: Yes - Cardiovascular System Hx Hypertension: Yes Hx Coronary Artery Disease: No Hx Heart Attack/AMI: No Hx Angina: No Hx Percutaneous Transluminal Coronary Angioplasty (PTCA): No Hx Cardia Arrhythmia: No Hx Pacemaker: No Hx Internal Defibrillator: No Hx Valvular Heart Disease: No Hx Heart Murmur: No Hx Peripheral Vascular Disease: No - Central Nervous System Hx Neuromuscular Disorder: No Hx Seizures: No CVA: No Hx Back Pain: Yes (spinal stenosis) Hx Psychiatric Problems: No - Gastrointestinal Hx Ulcer: No Hx Gastroesophageal Reflux Disease: No - Endocrine Hx Renal Disease: No Hx End Stage Renal Disease: No Hx Cirrhosis: No Hx Liver Disease: No Hx Insulin Dependent Diabetes: No Hx Non-Insulin Dependent Diabetes: No Hx Thyroid Disease: No Hx Hypothyroidism: No Hx Hyperthyroidism: No - Hematic Hx Anemia: No Hx Sickle Cell Disease: No - Other Systems Hx Alcohol Use: No Hx Substance Use: No Hx Cancer: No Hx Obesity: Yes
--- NOTE | 2020-02-19 19:34 | Progress Note ---
Assessment and Plan - Patient Problems (1) SIRS (systemic inflammatory response syndrome) Current Visit: Yes Status: Acute Plan to address problem: Clinical picture c/w SIRS Has Temp Tachycardia and leukocytosis (2) Abscess of left knee Current Visit: Yes Status: Acute Plan to address problem: Ortho consult for I and D Iv abx (3) Cellulitis of left buttock Current Visit: No Status: Acute Plan to address problem: IV abx surgery consult for tomorrow Had I and D donr for l knee Indurated and no fluctuant mass For IND tomorrow Continue Zyvox (4) ADRIANE (generalized anxiety disorder) Current Visit: No Status: Chronic Plan to address problem: Cont anxiolytics (5) HLD (hyperlipidemia) Current Visit: No Status: Chronic Qualifiers: Hyperlipidemia type: mixed hyperlipidemia Qualified Code(s): E78.2 - Mixed hyperlipidemia Plan to address problem: Cont Statins (6) Hyponatremia Current Visit: Yes Status: Acute Plan to address problem: IV Ns for now (7) DVT prophylaxis Current Visit: Yes Status: Acute Plan to address problem: Heparinand GI prophylaxis Subjective Date of service: 02/19/20 Principal diagnosis: L knee abscess and perirectal abscess Interval history: 49 YO Female with GERD, HTN, HLD, Osteomyelitis S/P PICC line placement, Perirectal Abscess S/P I&D presents to ED for evaluation. Patient states that she had experienced pain, and redness to her left leg over the past 1 week with worsening symptoms over the past 3 days. Pt states that the pain is 7/10, constant, worse with sitting/movement, relieved with nonmovement. Pt states that she was seen and evaluated by her wound care surgeon in the office today and was found to have the aforementioned findings. Patient was instructed to seek further care. Patient transported via private vehicle to [facility] for further evaluation and care. Pt seen and evaluated in the emergency department. Lab and imaging studies reviewed. Patient underwent a CT scan of the left lower extremity and was found to have left lower extremity cellulitis complicated by left knee abscess, as well as SIRS. Orthopedic surgery team consulted in ED. patient initiated on IV antibiotic therapy and admitted to the surgical floor. Pt denies CP, Palpitations, Chills, Trauma, BRBPR, Unintentional weight loss, night sweats, or recent ill contacts, or known exposure to COVID-19. Prior admission on 02/06/2020 reviewed. All listed medication reconciled at time of admission. signed out AMA last visit without getting Abx. For incision and drainage of perirectal abscess tomorrow a.m. Medically cleared Objective - Constitutional Vitals: Vital Signs - 12hr 02/19/20 02/19/20 02/19/20 08:00 08:03 12:03 Temperature 99.3 F 98.8 F Pulse Rate 111 H 114 H Respiratory 18 18 Rate Blood Pressure 106/67 Blood Pressure 116/68 [Right] O2 Sat by Pulse 94 95 Oximetry 02/19/20 17:51 Temperature 99.2 F Pulse Rate 111 H Respiratory 18 Rate Blood Pressure Blood Pressure 93/58 [Right] O2 Sat by Pulse 92 Oximetry General appearance: Present: no acute distress, well-nourished - EENT Eyes: PERRL, EOM intact ENT: hearing intact, clear oral mucosa Ears: bilateral: normal - Neck Neck: supple, normal ROM - Respiratory Respiratory effort: normal Respiratory: bilateral: CTA - Breasts Breasts: normal - Cardiovascular Heart rate: 76 Rhythm: regular Heart Sounds: Present: S1 & S2. Absent: gallop, rub Extremities: pulses intact, No edema, normal color, Full ROM Extremity abnormal: other (Left knee in dressing ) - Gastrointestinal General gastrointestinal: Present: soft, non-tender, non-distended, normal bowel sounds, other (Perirectal abscess left gluteal region) - Genitourinary Female genitourinary: normal - Integumentary Integumentary: clear, warm, dry - Musculoskeletal Musculoskeletal: 1, strength equal bilaterally - Neurologic Neurologic: moves all extremities - Psychiatric Psychiatric: memory intact, appropriate mood/affect, intact judgment & insight - Labs CBC & Chem 7: 02/19/20 05:23 02/19/20 05:23 Labs: Abnormal lab results 02/19/20 02/19/20 Range/Units 05:23 05:23 WBC 13.7 H (4.5-11.0) K/mm3 RBC 3.62 L (3.65-5.03) M/mm3 Plt Count 568 H (140-440) K/mm3 Lymph % (Auto) 11.8 L (13.4-35.0) % [place] % (Auto) 8.3 H (0.0-7.3) % [place] # 1.1 H (0.0-0.8) K/mm3 Seg Neutrophils % 78.7 H (40.0-70.0) % Seg Neutrophils # 10.8 H (1.8-7.7) K/mm3 Sodium 135 L (137-145) mmol/L Chloride 93.2 L (98-107) mmol/L BUN 6 L (7-17) mg/dL Creatinine 0.5 L (0.7-1.2) mg/dL Glucose 118 H (65-100) mg/dL Albumin 3.3 L (3.9-5) g/dL
[2020-02-19] MEDS: ACETAMINOPHEN 325 MG TAB PO PRN (21:55)
[2020-02-19] MEDS: PRAVASTATIN 20 MG TAB PO SCH (21:55)
[2020-02-20] MEDS: HYDROmorphone 1 MG/1 ML INJ IV PRN ×9 (05:06→23:09)
[2020-02-20] MEDS: LINEZOLID 600 MG/300 ML BAG IV SCH ×2 (09:27→22:08)
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
[2020-02-20] MEDS ORDERED: BUPIVACAINE/PF (0.5%) 5 MG/1 ML 30 ML VIAL INFILTRATI ONE ×2 (10:40→12:31)
[2020-02-20] MEDS ORDERED: HYDROGEN PEROXIDE 118 ML SOLUTION ONE (10:40)
[2020-02-20] MEDS ORDERED: LIDOCAINE (1%) 10 MG/1 ML VIAL 20 ML MDV ONE (10:40)
[2020-02-20] MEDS: HEPARIN 5,000 UNIT/1 ML VIAL SUB-Q SCH ×2 (10:50→22:08)
[2020-02-20] MEDS ORDERED: HYDROmorphone 1 MG/1 ML INJ ONE ×3 (11:45→13:36)
[2020-02-20] MEDS ORDERED: ONDANSETRON 4 MG/2 ML INJ ONE (11:45)
[2020-02-20] MEDS ORDERED: MIDAZOLAM 2 MG/2 ML INJ ONE (11:45)
[2020-02-20] MEDS ORDERED: LIDOCAINE MPF (2%) 20 MG/1 ML VIAL 5 ML ONE (11:47)
[2020-02-20] MEDS ORDERED: propofoL 200 MG/20 ML VIAL IV ONE ×2 (11:47→12:35)
[2020-02-20] MEDS ORDERED: KETAMINE/STERILE WATER 50 MG/ML SYRINGE ONE (11:47)
--- NOTE | 2020-02-20 12:06 | Anesthesia Day of Surgery ---
Anesthesia Day of Surgery - Day of Surgery Patient Examined: Yes Patient H&P Reviewed: Yes Patient is NPO: Yes
[2020-02-20] MEDS ORDERED: LIDOCAINE (1%) 10 MG/1 ML VIAL 20 ML MDV INFILTRATI ONE (12:31)
[2020-02-20] MEDS ORDERED: SODIUM CHLORIDE 0.9% IRR 1,000 ML BOTTLE IR ONE (12:31)
[2020-02-20] MEDS ORDERED: ONDANSETRON 4 MG/2 ML INJ IV PRN (12:39)
[2020-02-20] MEDS ORDERED: MEPERIDINE 25 MG/1 ML INJ ONE (13:14)
--- NOTE | 2020-02-20 13:20 | Operative Report ---
Operative Report Operative Report: Date of surgery: 02/20/2020 Preoperative diagnosis: Left gluteal abscess Postoperative diagnosis: Left gluteal abscess and chronic abscess cavity Procedure: Incision and drainage of left gluteal abscess with excisional debridement of abscess cavity and application of wound VAC Surgeon: Mable Hughes DO Anesthesia: MAC/local Findings: 1. 6.5 x 2 x 4.5 cm gluteal wound with large abscess cavity containing copious amount of pus. 2. Also noted was chronic granulation tissue. 3. Tunneling and undermining at the 5, 6, 10, 11:00 positions EBL: 20 cc Specimen: Wound cultures Complications: None Disposition: Stable to PACU HPI and indication: Patient is a 49-year-old female with recurrent left gluteal abscess. The patient is undergone multiple incision and drainages as well as debridements of the abscess cavities with instructions for wound care. The patient has been poorly compliant with follow-up. She presented again to the hospital with complaints of left gluteal pain, erythema, swelling. She was found to have a left gluteal abscess. Recommendation was to proceed with incision and drainage and debridement of abscess of the buttocks. All risks, benefits, alternatives to surgery were discussed with the patient and questions were answered. Consent obtained. Seizure in detail: Patient identified in the preoperative area, taken back to the operating room, placed on the operating room table in prone position. After anesthesia was induced, the buttocks were taped apart and the buttocks were prepped with Betadine. The area was draped in the usual sterile fashion a timeout performed. Local anesthetic was infiltrated around the already present wound of the patient's inner left buttock. The chronic granulation tissue present was excised using a 15 blade and the abscess cavity entered. There was immediate drainage of a copious amount of purulent fluid. Cultures were obtained. Using blunt dissection the abscess cavity was probed with a gloved finger and all loculations were broken up. The wound was extended superiorly and inferiorly to unroofed more of the abscess cavity. The wound measured 6.5 x 2 x 4.5 cm. The abscess cavity was debrided of chronic granulation tissue using a combination of curette, forcep, electrocautery, 15 blade. The wound was then irrigated with a copious amount of saline. All purulent material was expressed. There was tunneling at the 6:00 location of approximately 3 cm and at the 11:00 location of approximately 4 cm. There was undermining at the 10:00 location of about 4 cm and at the 5:00 location of about 3.5 cm. The wound was once again probed bluntly with a gloved finger and no additional abscess cavities were identified. Hemostasis was carefully ensured using electrocautery. The wound was once again irrigated with a copious amount of saline and all the irrigant returned clear. The wound bed was examined and was clean with adequate hemostasis. I then proceeded to placing the wound VAC. 1 piece of black sponge was cut to the appropriate size and placed into the wound. A Tegaderm dressing was applied and the wound VAC was bridged out to the patient's left hip. The wafer was applied and attached to the wound VAC system. The wound VAC was set to continuous low suction at -125 mmHg. No leak was detected and all the foam was compressed. At the end of the case, all sponge, instrument, sharp counts were correct x2. The patient tolerated the procedure well. She was awoken from anesthesia and taken to PACU in stable condition.
[2020-02-20] MEDS ORDERED: MEPERIDINE 25 MG/1 ML INJ IV PRN (13:21)
[2020-02-20] MEDS ORDERED: HYDROmorphone 2 MG TAB PO PRN (13:32)
--- NOTE | 2020-02-20 13:36 | Event Note ---
Date: 02/20/20 Patient status post incision and drainage, debridement of left gluteal wound and wound VAC placement. The abscess cavity and extent of infection was greater than anticipated. I anticipate that the patient will not tolerate wound VAC change at the bedside due to the degree of induration, and extent of the abscess cavity. Recommend wound VAC change and further debridement of the wound in the OR next week. Wound VAC form has been filled out and submitted to case management. Plan discussed with the patient's over the telephone.
[2020-02-20] MEDS ORDERED: LACTATED RINGERS 1,000 ML ONE (14:08)
--- NOTE | 2020-02-20 15:29 | Progress Note ---
Assessment and Plan abscess left proximal leg s/p I&D doing well continue IVAB and observation Subjective Date of service: 02/20/20 Principal diagnosis: L knee abscess and perirectal abscess Interval history: states leg feeling much better following I&D... Objective Vital signs: Vital Signs - 12hr 02/20/20 02/20/20 02/20/20 04:55 07:15 10:00 Temperature 98.3 F 98.3 F Pulse Rate 94 H 95 H Respiratory 18 18 Rate Blood Pressure 111/76 102/67 O2 Sat by Pulse 94 94 94 Oximetry 02/20/20 02/20/20 02/20/20 13:07 13:10 13:12 Temperature 97.3 F L Pulse Rate 99 H 100 H Respiratory 13 18 16 Rate Blood Pressure 102/69 104/82 O2 Sat by Pulse 100 100 Oximetry 02/20/20 02/20/20 02/20/20 13:15 13:17 13:20 Temperature Pulse Rate 104 H Respiratory 20 20 22 Rate Blood Pressure 105/83 O2 Sat by Pulse 100 Oximetry 02/20/20 02/20/20 02/20/20 13:22 13:30 13:37 Temperature 98.2 F Pulse Rate 100 H 97 H Respiratory 16 20 14 Rate Blood Pressure 100/36 118/80 O2 Sat by Pulse 100 100 Oximetry 02/20/20 13:40 Temperature Pulse Rate Respiratory 16 Rate Blood Pressure O2 Sat by Pulse Oximetry Narrative Exam: left leg/knee - no erythema note, minimal drainage, - Labs CBC & BMP: 02/19/20 05:23 02/19/20 05:23
[2020-02-20] MEDS: PRAVASTATIN 20 MG TAB PO SCH (22:08)
[2020-02-21] MEDS: HYDROmorphone 1 MG/1 ML INJ IV PRN ×6 (02:24→21:25)
[2020-02-21] MEDS: SODIUM CHLORIDE 0.9% 1000 ML 1,000 ML IV SCH (06:37)
[2020-02-21] MEDS: LINEZOLID 600 MG/300 ML BAG IV SCH ×2 (09:58→21:40)
--- NOTE | 2020-02-21 11:35 | Progress Note ---
Assessment and Plan - Patient Problems (1) SIRS (systemic inflammatory response syndrome) Current Visit: Yes Status: Acute Plan to address problem: Clinical picture c/w SIRS Has Temp Tachycardia and leukocytosis (2) Abscess of left knee Current Visit: Yes Status: Acute Plan to address problem: Ortho consult for I and D Iv abx (3) Cellulitis of left buttock Current Visit: No Status: Acute Plan to address problem: IV abx surgery consult for tomorrow Had I and D donr for l knee Indurated and no fluctuant mass For IND tomorrow Continue Zyvox I and D today (4) ADRIANE (generalized anxiety disorder) Current Visit: No Status: Chronic Plan to address problem: Cont anxiolytics (5) HLD (hyperlipidemia) Current Visit: No Status: Chronic Qualifiers: Hyperlipidemia type: mixed hyperlipidemia Qualified Code(s): E78.2 - Mixed hyperlipidemia Plan to address problem: Cont Statins (6) Hyponatremia Current Visit: Yes Status: Acute Plan to address problem: IV Ns for now (7) DVT prophylaxis Current Visit: Yes Status: Acute Plan to address problem: Heparinand GI prophylaxis Subjective Date of service: 02/20/20 Principal diagnosis: L knee abscess and perirectal abscess Interval history: 49 YO Female with GERD, HTN, HLD, Osteomyelitis S/P PICC line placement, Perirectal Abscess S/P I&D presents to ED for evaluation. Patient states that she had experienced pain, and redness to her left leg over the past 1 week with worsening symptoms over the past 3 days. Pt states that the pain is 7/10, constant, worse with sitting/movement, relieved with nonmovement. Pt states that she was seen and evaluated by her wound care surgeon in the office today and was found to have the aforementioned findings. [facility] Patient transported via private vehicle to [facility] for further evaluation and care. Pt seen and evaluated in the emergency department. Lab and imaging studies reviewed. Patient underwent a CT scan of the left lower extremity and was found to have left lower extremity cellulitis complicated by left knee abscess, as well as SIRS. Orthopedic surgery team consulted in ED. patient initiated on IV antibiotic therapy and admitted to the surgical floor. Pt denies CP, Palpitations, Chills, Trauma, BRBPR, Unintentional weight loss, night sweats, or recent ill contacts, or known exposure to COVID-19. Prior admission on 02/06/2020 reviewed. All listed medication reconciled at time of admi ssion. signed out AMA last visit without getting Abx. For incision and drainage of perirectal abscess today Medically cleared Objective - Constitutional Vitals: Vital Signs - 12hr 02/21/20 02/21/20 02/21/20 04:20 04:21 07:09 Temperature 98.3 F 97.9 F Pulse Rate 99 H 89 Respiratory 18 18 Rate Blood Pressure 85/49 88/51 94/67 O2 Sat by Pulse 93 92 Oximetry 02/21/20 02/21/20 10:00 11:13 Temperature 98.5 F Pulse Rate 92 H Respiratory 20 Rate Blood Pressure 104/66 O2 Sat by Pulse 100 96 Oximetry General appearance: Present: no acute distress, well-nourished - EENT Eyes: PERRL, EOM intact ENT: hearing intact, clear oral mucosa Ears: bilateral: normal - Neck Neck: supple, normal ROM - Respiratory Respiratory effort: normal Respiratory: bilateral: CTA - Breasts Breasts: normal - Cardiovascular Heart rate: 78 Rhythm: regular Heart Sounds: Present: S1 & S2. Absent: gallop, rub Extremities: pulses intact, No edema, normal color, Full ROM - Gastrointestinal General gastrointestinal: Present: soft, non-tender, non-distended, normal bowel sounds - Genitourinary Female genitourinary: normal - Integumentary Integumentary: clear, warm, dry - Musculoskeletal Musculoskeletal: 1, strength equal bilaterally - Neurologic Neurologic: moves all extremities - Psychiatric Psychiatric: memory intact, appropriate mood/affect, intact judgment & insight - Labs CBC & Chem 7: 02/19/20 05:23 02/19/20 05:23
--- NOTE | 2020-02-21 11:43 | Progress Note ---
Assessment and Plan - Patient Problems (1) Cellulitis and abscess of buttock Current Visit: No Status: Acute Plan to address problem: S/p I and D Findings: 1. 6.5 x 2 x 4.5 cm gluteal wound with large abscess cavity containing copious amount of pus. 2. Also noted was chronic granulation tissue. 3. Tunneling and undermining at the 5, 6, 10, 11:00 positions Wound vac as tolerated Discharge with Wound vac once arranged Discharge on PO Zyvox For I and Dnext week (2) SIRS (systemic inflammatory response syndrome) Current Visit: Yes Status: Acute Plan to address problem: Clinical picture c/w SIRS Has Temp Tachycardia and leukocytosis (3) Abscess of left knee Current Visit: Yes Status: Acute Plan to address problem: Ortho consult for I and D Iv abx (4) ADRIANE (generalized anxiety disorder) Current Visit: No Status: Chronic Plan to address problem: Cont anxiolytics (5) HLD (hyperlipidemia) Current Visit: No Status: Chronic Qualifiers: Hyperlipidemia type: mixed hyperlipidemia Qualified Code(s): E78.2 - Mixed hyperlipidemia Plan to address problem: Cont Statins (6) Hyponatremia Current Visit: Yes Status: Acute Plan to address problem: IV Ns for now (7) DVT prophylaxis Current Visit: Yes Status: Acute Plan to address problem: Heparinand GI prophylaxis Subjective Date of service: 02/21/20 Principal diagnosis: L knee abscess and perirectal abscess Interval history: 49 YO Female with GERD, HTN, HLD, Osteomyelitis S/P PICC line placement, Perirectal Abscess S/P I&D presents to ED for evaluation. Patient states that she had experienced pain, and redness to her left leg over the past 1 week with worsening symptoms over the past 3 days. Pt states that the pain is 7/10, constant, worse with sitting/movement, relieved with nonmovement. Pt states that she was seen and evaluated by her wound care surgeon in the office today and was found to have the aforementioned findings. Patient was instructed to seek further care. Patient transported via private vehicle to [facility] for further evaluation and care. Pt seen and evaluated in the emergency department. Lab and imaging studies reviewed. Patient underwent a CT scan of the left lower extremity and was found to have left lower extremity cellulitis complicated by left knee abscess, as well as SIRS. Orthopedic surgery team consulted in ED. patient initiated on IV antibiotic therapy and admitted to the surgical floor. Pt denies CP, Palpitations, Chills, Trauma, BRBPR, Unintentional weight loss, night sweats, or recent ill contacts, or known exposure to COVID-19. Prior admission on 02/06/2020 reviewed. All listed medication reconciled at time of ad mission. signed out AMA last visit without getting Abx. S/p ncision and drainage of perirectal abscess yesterday Objective - Constitutional Vitals: Vital Signs - 12hr 02/21/20 02/21/20 02/21/20 04:20 04:21 07:09 Temperature 98.3 F 97.9 F Pulse Rate 99 H 89 Respiratory 18 18 Rate Blood Pressure 85/49 88/51 94/67 O2 Sat by Pulse 93 92 Oximetry 02/21/20 02/21/20 10:00 11:13 Temperature 98.5 F Pulse Rate 92 H Respiratory 20 Rate Blood Pressure 104/66 O2 Sat by Pulse 100 96 Oximetry General appearance: Present: no acute distress, well-nourished - EENT Eyes: PERRL, EOM intact ENT: hearing intact, clear oral mucosa Ears: bilateral: normal - Neck Neck: supple, normal ROM - Respiratory Respiratory effort: normal Respiratory: bilateral: CTA - Breasts Breasts: normal - Cardiovascular Rhythm: regular Heart Sounds: Present: S1 & S2. Absent: gallop, rub Extremities: pulses intact, No edema, normal color, Full ROM - Gastrointestinal General gastrointestinal: Present: soft, non-tender, non-distended, normal bowel sounds - Genitourinary Female genitourinary: normal - Integumentary Integumentary: clear, warm, dry - Musculoskeletal Musculoskeletal: 1, strength equal bilaterally - Neurologic Neurologic: moves all extremities - Psychiatric Psychiatric: memory intact, appropriate mood/affect, intact judgment & insight - Labs CBC & Chem 7: 02/19/20 05:23 02/19/20 05:23
--- NOTE | 2020-02-21 13:50 | Progress Note ---
Assessment and Plan - Patient Problems (1) Cellulitis and abscess of buttock Current Visit: No Status: Acute Plan to address problem: Pt stable. Incision and drainage of left gluteal abscess with excisional debridement of abscess cavity and application of wound VAC - POD#1. Appears to be stable and doing well. We had a long conversation about her pain control. She was adamant that she only wanted IV pain medication. She initially defended that stance by saying that she knows her body and she does not tolerate pain pills very well. However, when questioned about what she would do when she leaves the hospital, she said she goes to a pain clinic and they give her oxycodone. She said that her pain management needs are different in the hospital compared to home. The arguments she gave did not make sense to me. No matter what I tried to convince her that it was worthwhile to at least try the oral pain medicine as it might last longer for her, we were not planning to discontinue the IV medicine, and it would still be available for breakthrough pain, she was adamant that she would not try it and only wanted IV pain medicine. I am worried that this is possibly reflective of addiction as opposed to pure pain management. In regards to her infection, it seemed to come as a complete surprise to her that this is related to bacteria. She seemed shocked that there was bacteria causing these problems. I tried to reset the conversation by saying from here on out it is very important that she stick with regular wound care and come to the assigned appointments as opposed to coming back whenever the problem gets really bad. This will be the only way that we can resolve this issue. She needs to take more initiative in her own care. We cannot fix this without her help. She acknowledged understanding. We also discussed that the plan is for her to stay until at least Sunday. Dr. Hughes is planning to take her back to the operating room for another debridement and wound VAC change. She initially seemed disappointed that she would have to stay that long, but at the end I think she was agreeable to waiting and getting the wound taken care of properly. Orders have already been placed for a home wound VAC. Hopefully she will be ready for discharge after the next debridement and wound VAC change. Preop orders will be placed on Sunday. I have already added her onto the OR schedule for Sunday. Please call with any questions. Subjective Date of service: 02/21/20 Patient Reports: Positive: still having pain (Only wants IV pain medicine). Negative: nausea, vomiting Objective Vital Signs - 12hr 02/21/20 02/21/20 02/21/20 04:20 04:21 07:09 Temperature 98.3 F 97.9 F Pulse Rate 99 H 89 Respiratory 18 18 Rate Blood Pressure 85/49 88/51 94/67 O2 Sat by Pulse 93 92 Oximetry 02/21/20 02/21/20 10:00 11:13 Temperature 98.5 F Pulse Rate 92 H Respiratory 20 Rate Blood Pressure 104/66 O2 Sat by Pulse 100 96 Oximetry - General physical appearance no distress, no pain, obese - Eyes normal occular movement - Respiratory normal expansion, normal respiratory effort - Integumentary other (wound vac intact and working well. Minimal drainage in canister) - Psychiatric oriented to time, oriented to person, oriented to place, speech is normal, memory intact - Labs 02/19/20 05:23 02/19/20 05:23
[2020-02-21] MEDS: HEPARIN 5,000 UNIT/1 ML VIAL SUB-Q SCH ×2 (14:27→21:31)
[2020-02-21] MEDS: PRAVASTATIN 20 MG TAB PO SCH (21:29)
[2020-02-22] MEDS: HYDROmorphone 1 MG/1 ML INJ IV PRN ×6 (00:40→19:29)
[2020-02-22] MEDS: SODIUM CHLORIDE 0.9% 1000 ML 1,000 ML IV SCH (00:45)
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
[2020-02-22] MEDS: HEPARIN 5,000 UNIT/1 ML VIAL SUB-Q SCH ×2 (10:21→21:31)
[2020-02-22] MEDS: LINEZOLID 600 MG/300 ML BAG IV SCH ×2 (10:24→22:55)
[2020-02-22] MEDS: AZTREONAM/NS 2 GM/100 ML 2 GM/100 ML VIAL IV SCH ×2 (14:30→21:25)
[2020-02-22] MEDS: PRAVASTATIN 20 MG TAB PO SCH (21:30)
[2020-02-23] MEDS: HYDROmorphone 1 MG/1 ML INJ IV PRN ×7 (02:25→21:40)
[2020-02-23] MEDS: CYCLOBENZAPRINE 10 MG TAB PO PRN (02:26)
--- NOTE | 2020-02-23 03:06 | Progress Note ---
Assessment and Plan - Patient Problems (1) Cellulitis and abscess of buttock Current Visit: No Status: Acute Plan to address problem: S/p I and D Findings: 1. 6.5 x 2 x 4.5 cm gluteal wound with large abscess cavity containing copious amount of pus. 2. Also noted was chronic granulation tissue. 3. Tunneling and undermining at the 5, 6, 10, 11:00 positions Wound vac as tolerated Discharge with Wound vac once arranged Discharge on PO Zyvox For I and D next Sunday--02/24/2020 (2) SIRS (systemic inflammatory response syndrome) Current Visit: Yes Status: Acute Plan to address problem: Clinical picture c/w SIRS Has Temp Tachycardia and leukocytosis (3) Abscess of left knee Current Visit: Yes Status: Acute Plan to address problem: Ortho consult for I and D Iv abx (4) ADRIANE (generalized anxiety disorder) Current Visit: No Status: Chronic Plan to address problem: Cont anxiolytics (5) HLD (hyperlipidemia) Current Visit: No Status: Chronic Qualifiers: Hyperlipidemia type: mixed hyperlipidemia Qualified Code(s): E78.2 - Mixed hyperlipidemia Plan to address problem: Cont Statins (6) Hyponatremia Current Visit: Yes Status: Acute Plan to address problem: IV Ns for now (7) DVT prophylaxis Current Visit: Yes Status: Acute Plan to address problem: Heparinand GI prophylaxis Subjective Date of service: 02/22/20 Principal diagnosis: L knee abscess and perirectal abscess Interval history: 49 YO Female with GERD, HTN, HLD, Osteomyelitis S/P PICC line placement, Perirectal Abscess S/P I&D presents to ED for evaluation. Patient states that she had experienced pain, and redness to her left leg over the past 1 week with worsening symptoms over the past 3 days. Pt states that the pain is 7/10, constant, worse with sitting/movement, relieved with nonmovement. Pt states that she was seen and evaluated by her wound care surgeon in the office today and was found to have the aforementioned findings. Patient was instructed to seek further care. Patient transported via private vehicle to [facility] for further evaluation and care. Pt seen and evaluated in the emergency department. Lab and imaging studies reviewed. Patient underwent a CT scan of the left lower extremity and was found to have left lower extremity cellulitis complicated by left knee abscess, as well as SIRS. Orthopedic surgery team consulted in ED. patient initiated on IV antibiotic therapy and admitted to the surgical floor. Pt denies CP, Palpitations, Chills, Trauma, BRBPR, Unintentional weight loss, night sweats, or recent ill contacts, or known exposure to COVID-19. Prior admission on 02/06/2020 reviewed. All listed medication reconciled at time of admission. signed out AMA last visit without getting Abx. S/p ncision and drainage of perirectal abscess yesterday Objective - Constitutional Vitals: Vital Signs - 12hr 02/22/20 02/22/20 02/23/20 15:13 19:26 00:08 Temperature 97.9 F 97.9 F 98.4 F Pulse Rate 96 H 101 H 94 H Respiratory 20 17 16 Rate Blood Pressure 113/72 112/63 121/71 O2 Sat by Pulse 96 93 95 Oximetry General appearance: Present: no acute distress, well-nourished - EENT Eyes: PERRL, EOM intact ENT: hearing intact, clear oral mucosa Ears: bilateral: normal - Neck Neck: supple, normal ROM - Respiratory Respiratory effort: normal Respiratory: bilateral: CTA - Breasts Breasts: normal - Cardiovascular Rhythm: regular Heart Sounds: Present: S1 & S2. Absent: gallop, rub Extremities: pulses intact, No edema, normal color, Full ROM Extremity abnormal: tenderness (Perirectal region) - Gastrointestinal General gastrointestinal: Present: soft, non-tender, non-distended, normal bowel sounds - Genitourinary Female genitourinary: normal - Integumentary Integumentary: clear, warm, dry - Musculoskeletal Musculoskeletal: 1, strength equal bilaterally - Neurologic Neurologic: moves all extremities - Psychiatric Psychiatric: memory intact, appropriate mood/affect, intact judgment & insight - Labs CBC & Chem 7: 02/19/20 05:23 02/19/20 05:23
[2020-02-23] MEDS: AZTREONAM/NS 2 GM/100 ML 2 GM/100 ML VIAL IV SCH ×3 (05:16→18:22)
[2020-02-23] MEDS: LINEZOLID 600 MG/300 ML BAG IV SCH ×2 (09:24→21:40)
[2020-02-23] MEDS: HEPARIN 5,000 UNIT/1 ML VIAL SUB-Q SCH ×2 (09:24→21:39)
--- NOTE | 2020-02-23 12:11 | Progress Note ---
Assessment and Plan - Patient Problems (1) Cellulitis and abscess of buttock Current Visit: No Status: Acute Plan to address problem: Pt stable. Incision and drainage of left gluteal abscess with excisional debridement of abscess cavity and application of wound VAC - POD#3. Appears to be stable and doing well. No new issues. Pt understands that she is going to OR tomorrow and needs to be NPO in the AM. Pt's only question is if she can go home tomorrow. It will be up to Dr. Hughes tomorrow after surgery. Please call with any questions. Subjective Date of service: 02/23/20 Patient Reports: Positive: no new complaints Objective Vital Signs - 12hr 02/23/20 02/23/20 05:03 07:54 Temperature 98.6 F 98.5 F Pulse Rate 101 H 99 H Respiratory 17 18 Rate Blood Pressure 109/73 124/70 O2 Sat by Pulse 96 96 Oximetry - General physical appearance no distress, no pain, other (laying in bed) - Respiratory normal expansion, normal respiratory effort - Integumentary other (wound vac in place. Minimal output in canister) - Psychiatric oriented to time, oriented to person, oriented to place, speech is normal, mem ory intact - Labs 02/19/20 05:23 02/19/20 05:23
[2020-02-23] MEDS: SODIUM CHLORIDE 0.9% 1000 ML 1,000 ML IV SCH (18:22)
--- NOTE | 2020-02-23 19:30 | Progress Note ---
Assessment and Plan - Patient Problems (1) Cellulitis and abscess of buttock Current Visit: No Status: Acute Plan to address problem: S/p I and D Findings: 1. 6.5 x 2 x 4.5 cm gluteal wound with large abscess cavity containing copious amount of pus. 2. Also noted was chronic granulation tissue. 3. Tunneling and undermining at the 5, 6, 10, 11:00 positions Wound vac as tolerated Discharge with Wound vac once arranged Discharge on PO Zyvox For repeat I and D tomorrow--02/24/2020 Discharged on p.o. Zyvox when cleared by surgery (2) SIRS (systemic inflammatory response syndrome) Current Visit: Yes Status: Acute Plan to address problem: Clinical picture c/w SIRS Has Temp Tachycardia and leukocytosis (3) Abscess of left knee Current Visit: Yes Status: Acute Plan to address problem: Ortho consult for I and D Iv abx (4) ADRIANE (generalized anxiety disorder) Current Visit: No Status: Chronic Plan to address problem: Cont anxiolytics (5) HLD (hyperlipidemia) Current Visit: No Status: Chronic Qualifiers: Hyperlipidemia type: mixed hyperlipidemia Qualified Code(s): E78.2 - Mixed hyperlipidemia Plan to address problem: Cont Statins (6) Hyponatremia Current Visit: Yes Status: Acute Plan to address problem: IV Ns for now (7) DVT prophylaxis Current Visit: Yes Status: Acute Plan to address problem: Heparinand GI prophylaxis Subjective Date of service: 02/23/20 Principal diagnosis: L knee abscess and perirectal abscess Interval history: 49 YO Female with GERD, HTN, HLD, Osteomyelitis S/P PICC line placement, Pe rirectal Abscess S/P I&D presents to ED for evaluation. Patient states that she had experienced pain, and redness to her left leg over the past 1 week with worsening symptoms over the past 3 days. Pt states that the pain is 7/10, constant, worse with sitting/movement, relieved with nonmovement. Pt states that she was seen and evaluated by her wound care surgeon in the office today and was found to have the aforementioned findings. Patient was instructed to seek further care. Patient transported via private vehicle to [facility] for further evaluation and care. Pt seen and evaluated in the emergency department. Lab and imaging studies reviewed. Patient underwent a CT scan of the left lower e xtremity and was found to have left lower extremity cellulitis complicated by left knee abscess, as well as SIRS. Orthopedic surgery team consulted in ED. patient initiated on IV antibiotic therapy and admitted to the surgical floor. Pt denies CP, Palpitations, Chills, Trauma, BRBPR, Unintentional weight loss, night sweats, or recent ill contacts, or known exposure to COVID-19. Prior admission on 02/06/2020 reviewed. All listed medication reconciled at time of admission. signed out AMA last visit without getting Abx. S/p ncision and drainage of perirectal abscess Patient to get repeat I and D tomorrow Objective - Constitutional Vitals: Vital Signs - 12hr 02/23/20 02/23/20 02/23/20 07:54 11:59 12:06 Temperature 98.5 F 98.6 F Pulse Rate 99 H 110 H Respiratory 18 18 18 Rate Blood Pressure 124/70 120/81 O2 Sat by Pulse 96 98 Oximetry 02/23/20 16:21 Temperature 97.5 F L Pulse Rate 128 H Respiratory 18 Rate Blood Pressure 149/85 O2 Sat by Pulse 96 Oximetry General appearance: Present: no acute distress, well-nourished - EENT Eyes: PERRL, EOM intact ENT: hearing intact, clear oral mucosa Ears: bilateral: normal - Neck Neck: supple, normal ROM - Respiratory Respiratory effort: normal Respiratory: bilateral: CTA - Breasts Breasts: normal - Cardiovascular Heart rate: 78 Rhythm: regular Heart Sounds: Present: S1 & S2. Absent: gallop, rub Extremities: pulses intact, No edema, normal color, Full ROM, abnormal (Perirectal abscess with wound VAC) - Gastrointestinal General gastrointestinal: Present: soft, non-tender, non-distended, normal bowel sounds - Genitourinary Female genitourinary: normal - Integumentary Integumentary: clear, warm, dry - Musculoskeletal Musculoskeletal: 1, strength equal bilaterally - Neurologic Neurologic: moves all extremities - Psychiatric Psychiatric: memory intact, appropriate mood/affect, intact judgment & insight - Labs CBC & Chem 7: 02/19/20 05:23 02/19/20 05:23
[2020-02-23] MEDS: PRAVASTATIN 20 MG TAB PO SCH (21:40)
[2020-02-24] MEDS: HYDROmorphone 1 MG/1 ML INJ IV PRN ×6 (01:00→14:17)
[2020-02-24] MEDS: AZTREONAM/NS 2 GM/100 ML 2 GM/100 ML VIAL IV SCH ×2 (03:12→12:07)
[2020-02-24] MEDS: LINEZOLID 600 MG/300 ML BAG IV SCH (10:27)
[2020-02-24] MEDS: HEPARIN 5,000 UNIT/1 ML VIAL SUB-Q SCH (11:30)
--- NOTE | 2020-02-24 11:45 | Progress Note ---
Assessment and Plan (1) Cellulitis and abscess of buttock Current Visit: No Status: Acute Plan to address problem: Pt stable. Incision and drainage of left gluteal abscess with excisional debridement of abscess cavity and application of wound VAC - POD#4. As most of the wound vac dressing was removed accidentally yesterday evening, vac change was able to be performed at the bedside. Wound was clean and does not require any further debridement. Plan: 1. continue reg diet 2. continue abx per ID 3. wound vac to -125mmHg suction - already attached to home vac 4. prn pain control 5. continue home meds 6. Home health care for vac change on Sunday. Pt to have appointment in wound care clinic on SundayMarch 01 7. Pt instructed to follow up with her pain management DrJamila on DC 8. Ok to dc from surgery standpoint. Will need final abx recs per ID prior to dc. Thank you. Please call with any questions. Subjective Date of service: 02/24/20 Narrative: Pt seen and examined. Yesterday evening, the vac was accidentally dislodged from the wound. According to nursing notes, alginate was placed in wound. Pt has been afebrile. Objective Vital Signs - 12hr 02/24/20 02/24/20 02/24/20 00:03 01:00 01:30 Temperature 99.0 F Pulse Rate 98 H Respiratory 16 16 16 Rate Blood Pressure 118/84 O2 Sat by Pulse 96 Oximetry 02/24/20 02/24/20 02/24/20 03:57 04:17 04:47 Temperature 98.3 F Pulse Rate 93 H Respiratory 16 16 17 Rate Blood Pressure 124/72 O2 Sat by Pulse 97 Oximetry 02/24/20 07:45 Temperature 98.3 F Pulse Rate 93 H Respiratory 18 Rate Blood Pressure 110/77 O2 Sat by Pulse 95 Oximetry - General physical appearance Narrative Exam: Gen: AAOx3. NAD Gluteal: L gluteal wound with black sponge partially in wound. Induration surrounding wound and cellulitis, slowly improving. Wound vac change: Pt premedicated with dilaudid IV. Remaining black sponge present in wound removed intact. The wound bed is red and clean, no odor or drainage. Wound repacked with one piece of black sponge and bridged to left side of abdomen. Hydrocolloid applied around the wound. Tegaderm dressing applied in usual fashion. Wafer applied and vac connected. All black sponge compressed and vac functioning at -125mmHg suction. Pt tolerated the procedure well. - Labs 02/19/20 05:23 02/19/20 05:23
[2020-02-24] MEDS: CYCLOBENZAPRINE 10 MG TAB PO PRN (11:57)
--- NOTE | 2020-02-24 13:38 | Progress Note ---
Assessment and Plan s/p I&D left leg, doing well continue dressing changes and antibiotics... Subjective Date of service: 02/24/20 Principal diagnosis: L knee abscess and perirectal abscess Interval history: less pain and drainage left leg.... Objective Vital signs: Vital Signs - 12hr 02/24/20 02/24/20 02/24/20 03:57 04:17 04:47 Temperature 98.3 F Pulse Rate 93 H Respiratory 16 16 17 Rate Blood Pressure 124/72 O2 Sat by Pulse 97 Oximetry 02/24/20 07:45 Temperature 98.3 F Pulse Rate 93 H Respiratory 18 Rate Blood Pressure 110/77 O2 Sat by Pulse 95 Oximetry Incision: healing, draining (small amount serosang fluid...) Weight bearing status: as tolerated - Labs CBC & BMP: 02/19/20 05:23 02/19/20 05:23
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
[2020-02-24] MEDS ORDERED: levoFLOXacin 750 MG TAB PO SCH (15:00)
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
[2020-02-24 16:24] VITALS: BP 87/54
[2020-02-24] MEDS ORDERED: ZOLPIDEM 5 MG TAB PO PRN (22:00)
== END 2020-02-24 17:00 | disposition home or self-care (01) | DRG 854 ==
LOC: ED 09:31 → 4A 15:34 → 3B 16:35 → 3B-SURG 19:29
PROVIDERS: ADMIT Internal Medicine; ATTEND Internal Medicine
PROC: 0Y9J0ZZ Drainage of Left Lower Leg, Open Approach (ICD-10-PCS; 2020-02-17)
PROC: 0JB70ZZ Excision of Back Subcutaneous Tissue and Fascia, Open Approach (ICD-10-PCS; principal; 2020-02-20)
PROC: 0Y9D0ZZ Drainage of Left Upper Leg, Open Approach (ICD-10-PCS; 2020-02-20)
DX: A41.9 Sepsis, unspecified organism (principal); L03.116 Cellulitis of left lower limb; L02.416 Cutaneous abscess of left lower limb; E87.1 Hypo-osmolality and hyponatremia; M86.68 Other chronic osteomyelitis, other site; E78.5 Hyperlipidemia, unspecified; M19.90 Unspecified osteoarthritis, unspecified site; K21.9 Gastro-esophageal reflux disease without esophagitis; E78.00 Pure hypercholesterolemia, unspecified; M48.00 Spinal stenosis, site unspecified; F41.1 Generalized anxiety disorder; E66.9 Obesity, unspecified; G89.29 Other chronic pain; Z79.899 Other long term (current) drug therapy; Z68.32 Body mass index [BMI] 32.0-32.9, adult; Z88.8 Allergy status to other drugs, medicaments and biological substances; Z88.0 Allergy status to penicillin; Z88.6 Allergy status to analgesic agent; Z90.710 Acquired absence of both cervix and uterus; Z82.49 Family history of ischemic heart disease and other diseases of the circulatory system; Z91.19 Patient's noncompliance with other medical treatment and regimen
CPT/HCPCS: 36415; 71045; 72193; 80053; 81001; 82140; 82805; 83036; 84703; 85025; 85610; 86140; 87040; 87075; 87076; 87086; 87116; 87186; 93005; 94760; 99215; G0378; A9270-GY; G0463; J1170; J1644; J2020; J2175; J2185; J2250; J2270; J2405; J2704; J7030; J7120; Q9967

== ENCOUNTER 2020-03-01 09:05 | Outpatient (CLI) | payer MEDICAID ==
[2020-03-01] MEDS ORDERED: LIDOCAINE (4%) 40 MG/ML TOPICAL SOLN 50 ML BOTTLE TP ONE (09:18)
== END 2020-03-01 09:06 | disposition home or self-care (01) ==
LOC: WOUND 09:05
PROVIDERS: ATTEND Surgery
DX: L02.31 Cutaneous abscess of buttock (principal); L03.317 Cellulitis of buttock; A49.02 Methicillin resistant Staphylococcus aureus infection, unspecified site; E78.5 Hyperlipidemia, unspecified; M19.90 Unspecified osteoarthritis, unspecified site; Z90.710 Acquired absence of both cervix and uterus; Z87.891 Personal history of nicotine dependence
CPT/HCPCS: 97605

== ENCOUNTER 2020-03-06 14:20 | Emergency (ER) | payer MEDICAID ==
[2020-03-06 21:00] VITALS: BP 138/90
== END 2020-03-06 21:18 | disposition home or self-care (01) ==
LOC: ED 14:20
DX: L02.31 Cutaneous abscess of buttock (principal); I10 Essential (primary) hypertension; K21.9 Gastro-esophageal reflux disease without esophagitis; E78.5 Hyperlipidemia, unspecified; M19.90 Unspecified osteoarthritis, unspecified site; E78.00 Pure hypercholesterolemia, unspecified; Z88.6 Allergy status to analgesic agent; Z88.8 Allergy status to other drugs, medicaments and biological substances; Z79.899 Other long term (current) drug therapy; Z87.891 Personal history of nicotine dependence
CPT/HCPCS: 99282

== ENCOUNTER 2020-03-08 08:38 | Outpatient (CLI) | payer MEDICAID ==
[2020-03-08] MEDS ORDERED: LIDOCAINE (4%) 40 MG/ML TOPICAL SOLN 50 ML BOTTLE TP ONE (09:30)
== END 2020-03-08 08:39 | disposition home or self-care (01) ==
LOC: WOUND 08:38
PROVIDERS: ATTEND Surgery
DX: L02.31 Cutaneous abscess of buttock (principal); A49.02 Methicillin resistant Staphylococcus aureus infection, unspecified site; E78.5 Hyperlipidemia, unspecified; M19.90 Unspecified osteoarthritis, unspecified site; Z90.710 Acquired absence of both cervix and uterus; Z87.891 Personal history of nicotine dependence
CPT/HCPCS: 97605

== ENCOUNTER 2020-03-18 13:59 | Outpatient (CLI) | payer MEDICAID | END 2020-03-18 14:00 | disposition home or self-care (01) | LOC: WOUND 13:59 | PROVIDERS: ATTEND Surgery | DX: L02.31 Cutaneous abscess of buttock (principal); L02.416 Cutaneous abscess of left lower limb; A49.02 Methicillin resistant Staphylococcus aureus infection, unspecified site; E78.5 Hyperlipidemia, unspecified; M19.90 Unspecified osteoarthritis, unspecified site; Z90.710 Acquired absence of both cervix and uterus; Z87.891 Personal history of nicotine dependence | CPT/HCPCS: 97605 ==

== ENCOUNTER 2020-04-12 08:47 | Outpatient (CLI) | payer MEDICAID ==
[2020-04-12] MEDS ORDERED: LIDOCAINE (4%) 40 MG/ML TOPICAL SOLN 50 ML BOTTLE TP ONE (09:20)
== END 2020-04-12 08:48 | disposition home or self-care (01) ==
LOC: WOUND 08:47
PROVIDERS: ATTEND Surgery
DX: L02.31 Cutaneous abscess of buttock (principal); L02.416 Cutaneous abscess of left lower limb; A49.02 Methicillin resistant Staphylococcus aureus infection, unspecified site; E78.5 Hyperlipidemia, unspecified; M19.90 Unspecified osteoarthritis, unspecified site; Z90.710 Acquired absence of both cervix and uterus; Z87.891 Personal history of nicotine dependence

== ENCOUNTER 2020-04-19 08:44 | Outpatient (CLI) | payer MEDICAID ==
[2020-04-19] MEDS ORDERED: LIDOCAINE (4%) 40 MG/ML TOPICAL SOLN 50 ML BOTTLE TP ONE (09:02)
== END 2020-04-19 08:45 | disposition home or self-care (01) ==
LOC: WOUND 08:44
PROVIDERS: ATTEND Surgery
DX: L02.31 Cutaneous abscess of buttock (principal); A49.02 Methicillin resistant Staphylococcus aureus infection, unspecified site; E78.5 Hyperlipidemia, unspecified; M19.90 Unspecified osteoarthritis, unspecified site; Z90.710 Acquired absence of both cervix and uterus; Z87.891 Personal history of nicotine dependence

== ENCOUNTER 2020-04-26 09:09 | Outpatient (CLI) | payer MEDICAID ==
[2020-04-26] MEDS ORDERED: LIDOCAINE (4%) 40 MG/ML TOPICAL SOLN 50 ML BOTTLE TP ONE (09:12)
== END 2020-04-26 09:10 | disposition home or self-care (01) ==
LOC: WOUND 09:09
PROVIDERS: ATTEND Surgery
DX: L02.31 Cutaneous abscess of buttock (principal); A49.02 Methicillin resistant Staphylococcus aureus infection, unspecified site; E78.5 Hyperlipidemia, unspecified; M19.90 Unspecified osteoarthritis, unspecified site; Z90.710 Acquired absence of both cervix and uterus; Z87.891 Personal history of nicotine dependence

== ENCOUNTER 2020-07-28 13:16 | Inpatient (IN) | payer MEDICAID ==
[2020-07-28] MEDS ORDERED: SODIUM CHLORIDE 0.9% 1000 ML IV SOLN IV ONE (14:29)
[2020-07-28] MEDS ORDERED: ONDANSETRON 4 MG/2 ML INJ IV ONE (14:33)
[2020-07-28] MEDS ORDERED: HYDROmorphone 1 MG/1 ML INJ IV ONE ×2 (14:33→18:55)
[2020-07-28 15:11] LABS: Basophils % (Auto) 0.2 % (0.0-1.8); Eosinophils % (Auto) 0.2 % (0.0-4.3); Hematocrit 36.7 % (30.3-42.9); Hemoglobin 11.9 gm/dl (10.1-14.3); Lymphocytes # (Auto) 1.7 K/mm3 (1.2-5.4); Mean Corpuscular HGB Conc 33 % (30-34); Mean Corpuscular Volume 88 fl (79-97); Monocytes # (Auto) 1.3 K/mm3 (0.0-0.8); Monocytes % (Auto) 11.9 % (0.0-7.3); Platelet Count 376 K/mm3 (140-440); Red Blood Count 4.18 M/mm3 (3.65-5.03)
[2020-07-28 15:21] LABS: INR 1.13 (0.87-1.13)
[2020-07-28] MEDS: CLINDAMYCIN 600 MG/50 mL 600 MG/50 ML BAG IV SCH ×2 (15:22→22:57)
[2020-07-28 15:31] LABS: Alanine Aminotransferase 14 units/L (7-56); Albumin 4.2 g/dL (3.9-5); Blood Urea Nitrogen 8 mg/dL (7-17); Calcium 9.5 mg/dL (8.4-10.2); Hemolysis Index 9
[2020-07-28 15:55] LABS: BUN/Creatinine Ratio 16
[2020-07-28] MEDS: AZTREONAM/NS 1 GM/50 ML 1 GM/50 ML VIAL IV SCH ×2 (16:10→23:13)
[2020-07-28] MEDS ORDERED: HYDROmorphone 2 MG/1 ML INJ IV ONE ×2 (16:34→18:15)
--- NOTE | 2020-07-28 16:42 | XRay Report ---
LEFT TIBIA-FIBULA 2 VIEW(S) INDICATION / CLINICAL INFORMATION: left lateral leg infection with hardwear COMPARISON: CT left lower extremity 02/16/2020 FINDINGS: BONES / JOINT(S): Postoperative change in the proximal tibia status post hardware removal. No acute f racture or dislocation. Mild degenerative change. SOFT TISSUES: Mild induration/swelling in the subcutaneous soft tissues lateral to the knee. ADDITIONAL FINDINGS: None. Signer Name: Dmitriy Butt MD Signed: 07/28/2020 4:37 PM Workstation Name: [id number]
--- NOTE | 2020-07-28 16:43 | XRay Report ---
CHEST 1 VIEW INDICATION / CLINICAL INFORMATION: sepsis. COMPARISON: 04/06/2020 FINDINGS: SUPPORT DEVICES: None. HEART / MEDIASTINUM: No significant abnormality. LUNGS / PLEURA: No significant pulmonary or pleural abnormality. No pneumothorax. ADDITIONAL FINDINGS: No significant additional findings. IMPRESSION: 1. No acute findings. Signer Name: Dmitriy Butt MD Signed: 07/28/2020 4:39 PM Workstation Name: [id number]
--- NOTE | 2020-07-28 17:10 | Cat Scan Report ---
CT LEFT LOWER EXTREMITY HISTORY: Provided clinical history of left leg infection below the with hardware COMPARISON: Tib-fib radiographs from 07/28/2020; CT lower extremity 02/16/2020 TECHNIQUE: Routine post-contrast CT of the left lower extremity obtained. CONTRAST: 100 cc Omnipaque 300 FINDINGS: Bones/articulations: Essentially unchanged appearance of the osseous structures with postoperative ch krish at the proximal tibia and chronic deformity at the proximal fibula. Hardware has been removed pr ior to the comparison CT. No acute fracture or aggressive osseous lesion. No definite evidence of ost eomyelitis. Small knee effusion, septic arthritis not excluded. Muscles: No significant abnormality. Subcutaneous soft tissues: Moderate amount of edema and inflammation lateral to the tibial plateau in the same region of the abscess on 02/16/2020. Today there is a subtle small fluid collection measurin g approximately 1.5 cm possibly representing abscess. No subcutaneous emphysema. Additional Findings: Incidentally visualized right lower extremity demonstrates no significant abnorm ality. IMPRESSION: 1. Moderate edema/inflammation lateral to the tibial plateau in the same region of the abscess on 01/29. Today there is a subtle small fluid collection possibly representing an abscess. There is a s mall effusion in the adjacent left knee, septic arthritis not excluded. Consider fluid aspiration for further evaluation. Unchanged postoperative appearance of the left tibia without definite evidence of osteomyelitis. Signer Name: Dmitriy Butt MD Signed: 07/28/2020 5:05 PM Workstation Name: [id number]
--- NOTE | 2020-07-28 18:49 | Vascular Lab Report ---
DUPLEX DOPPLER LOWER EXTREMITY VEINS, LEFT INDICATION / CLINICAL INFORMATION: left leg pain. TECHNIQUE: Duplex doppler imaging was performed through the veins of the left lower extremity using venous compr ession and other maneuvers. COMPARISON: None available. FINDINGS: LEFT COMMON FEMORAL VEIN: Negative. LEFT FEMORAL VEIN: Negative. LEFT POPLITEAL VEIN: Negative. LEFT CALF VEINS: Negative. ADDITIONAL FINDINGS: None. IMPRESSION: 1. No sonographic evidence for DVT in the left lower extremity. Signer Name: Loco Bettencourt MD Signed: 07/28/2020 6:45 PM Workstation Name: [id number]
--- NOTE | 2020-07-28 18:59 | Emergency Department Report ---
ED Extremity Problem HPI - General Chief complaint: Extremity Problem,Nontraumatic Stated complaint: LT LEG PAIN Time Seen by Provider: 07/28/20 14:21 Source: patient, EMS, old records reviewed Mode of arrival: Stretcher Limitations: No Limitations - History of Present Illness Initial comments: 49 YO Female with GERD, HTN, HLD, Osteomyelitis S/P PICC line placement, Recurrent Perirectal Abscess S/P I&D (with recent admission on 03/21-03/25) for sepsis,and Chronic Pain Syndrome presents to the hospital planing one 1 week of lateral proximal tibia pain, swelling, and fever. Patient states she had a fever at home but took Tylenol prior to arrival. She has had history of infection in this area as well requiring surgery drainage and removal of previo us hardware. Patient takes Percocet 10 mg every 6 every 6 hours for chronic musculoskeletal/back pain. This medication is not currently helping her pain. Pain is currently 10/10 intensity, constant, worse with movement and palpation. Patient does pain or swelling to the knee itself. Severity scale (0 -10): 10 - Related Data Previous Rx's Medication Instructions Recorded Last Taken Type ALPRAZolam [Xanax TAB] 2 mg PO QHS PRN #15 tablet 03/25/20 Unknown Rx Simvastatin 10 mg PO DAILY #30 03/25/20 Unknown Rx Cyclobenzaprine [Flexeril 10 MG 10 mg PO TID PRN #14 04/28/20 Unknown Rx TAB] Doxycycline Hyclate 100 mg PO BID #14 tablet. 04/28/20 Unknown Rx oxyCODONE /ACETAMINOPHEN [Percocet 2 tab PO Q6H PRN #10 tablet 04/28/20 Unknown Rx 5/325 mg] Allergies Allergy/AdvReac Type Severity Reaction Status Date / Time aspirin Allergy Swelling Verified 04/06/20 12:15 hydroxyzine HCl Allergy Anaphylaxis Verified 04/06/20 12:15 [From Vistaril] hydroxyzine pamoate Allergy Anaphylaxis Verified 04/06/20 12:15 [From Vistaril] ketorolac tromethamine Allergy Swelling Verified 04/06/20 12:15 [From Toradol] Penicillins Allergy Anaphylaxis Verified 04/06/20 12:15 tramadol Allergy Shortness Verified 04/06/20 12:15 of Breath vancomycin Allergy Rash Verified 04/06/20 12:15 ED Review of Systems ROS: Stated complaint: LT LEG PAIN Other details as noted in HPI Comment: All other systems reviewed and negative ED Past Medical Hx - Past Medical History Hx Hypertension: Yes (noted in chart but patient denies. Normotensive this admission.) Hx Heart Attack/AMI: No Hx Congestive Heart Failure: No Hx Diabetes: No Hx Deep Vein Thrombosis: No Hx Liver Disease: No Hx Renal Disease: No Hx Sickle Cell Disease: No Hx Arthritis: Yes Hx Seizures: No Hx Kidney Stones: Yes Hx Asthma: No Hx COPD: No Hx HIV: No Additional medical history: chronic pain, hypercholesterolemia, sepsis in 2018, infected hardware in LLL removed 11/2018. spinal stenosis - Surgical History Additional Surgical History: L leg fx repair. hyst. pelvic fx repair. Pt became septic due to infection caused by metal in LLL: removed early 2018 - Social History Smoking Status: Never Smoker Substance Use Type: None - Medications Home Medications: Home Medications Medication Instructions Recorded Confirmed Last Taken Type ALPRAZolam [Xanax TAB] 2 mg PO QHS PRN #15 tablet 03/25/20 04/27/20 Unknown Rx Simvastatin 10 mg PO DAILY #30 03/25/20 04/27/20 Unknown Rx Cyclobenzaprine [Flexeril 10 MG 10 mg PO TID PRN #14 04/28/20 Unknown Rx TAB] Doxycycline Hyclate 100 mg PO BID #14 tablet.dr 04/28/20 Unknown Rx oxyCODONE /ACETAMINOPHEN [Percocet 2 tab PO Q6H PRN #10 tablet 04/28/20 Unknown Rx 5/325 mg] ED Physical Exam - General Limitations: No Limitations - Other Other exam information: General: No acute distress Head: Atraumatic Eyes: normal appearance ENT: Moist mucous membranes Neck: Normal appearance, no midline tenderness Chest: Clear to auscultation bilaterally CV: Regular rate and rhythm Abdomen: Soft, normal bowel sounds, nontender, nondistended, no rebound or guarding Back: Normal inspection Extremity: 5 x 5 cm area in the shape of a square with erythema, swelling, tenderness, and warmth. No calf tenderness. No swelling to the knee or tenderness to kneecap itself. No pain to knee with movement but pain to proximal lateral tibia with movement of knee. 2+ DP pulse Neuro: Alert O x 3, no facial asymmetry, speech clear, no gross motor sensory deficit Psych: Appropriate behavior Skin: No rash ED Course Vital Signs 07/28/20 07/28/20 07/28/20 13:47 14:30 16:30 Temperature 98.5 F Pulse Rate 122 H 115 H 110 H Respiratory 18 18 18 Rate Blood Pressure 127/83 Blood Pressure 115/80 116/71 [Left] O2 Sat by Pulse 96 95 96 Oximetry - Reevaluation(s) Reevaluation #1: 07/28/20 19:28 awaiting hospitalist call back for admission - Consultations Consultation #1: 07/28/20 19:22 Case discussed with orthopedic doctor Lazaro who is familiar with the patient and available for consult for inpatient admission ED Medical Decision Making - Lab Data Result diagrams: 07/28/20 15:00 07/28/20 15:00 Lab Results 07/28/20 07/28/20 07/28/20 Range/Units 15:00 15:00 15:00 WBC 11.1 H (4.5-11.0) K/mm3 RBC 4.18 (3.65-5.03) M/mm3 Hgb 11.9 (10.1-14.3) gm/dl Hct 36.7 (30.3-42.9) % MCV 88 (79-97) fl MCH 29 (28-32) pg MCHC 33 (30-34) % RDW 18.0 H (13.2-15.2) % Plt Count 376 (140-440) K/mm3 Lymph % (Auto) 15.0 (13.4-35.0) % [place] % (Auto) 11.9 H (0.0-7.3) % Eos % (Auto) 0.2 (0.0-4.3) % Baso % (Auto) 0.2 (0.0-1.8) % Lymph # (Auto) 1.7 (1.2-5.4) K/mm3 [place] # (Auto) 1.3 H (0.0-0.8) K/mm3 Eos # (Auto) 0.0 (0.0-0.4) K/mm3 Baso # (Auto) 0.0 (0.0-0.1) K/mm3 Seg Neutrophils % 72.7 H (40.0-70.0) % Seg Neutrophils # 8.0 H (1.8-7.7) K/mm3 PT 14.6 (12.2-14.9) Sec. INR 1.13 (0.87-1.13) Sodium 136 L (137-145) mmol/L Potassium 3.8 (3.6-5.0) mmol/L Chloride 96.8 L (98-107) mmol/L Carbon Dioxide 24 (22-30) mmol/L Anion Gap 19 mmol/L BUN 8 (7-17) mg/dL Creatinine 0.5 L (0.6-1.2) mg/dL Estimated GFR > 60 ml/min BUN/Creatinine Ratio 16 % Glucose 99 (65-100) mg/dL Lactic Acid (0.7-2.0) mmol/L Calcium 9.5 (8.4-10.2) mg/dL Total Bilirubin 0.40 (0.1-1.2) mg/dL AST 12 (5-40) units/L ALT 14 (7-56) units/L Alkaline Phosphatase 91 (35-129) units/L Total Creatine Kinase (30-135) units/L Total Protein 7.9 (6.3-8.2) g/dL Albumin 4.2 (3.9-5) g/dL Albumin/Globulin Ratio 1.1 % 07/28/20 07/28/20 Range/Units 15:00 15:00 WBC (4.5-11.0) K/mm3 RBC (3.65-5.03) M/mm3 Hgb (10.1-14.3) gm/dl Hct (30.3-42.9) % MCV (79-97) fl MCH (28-32) pg MCHC (30-34) % RDW (13.2-15.2) % Plt Count (140-440) K/mm3 Lymph % (Auto) (13.4-35.0) % [place] % (Auto) (0.0-7.3) % Eos % (Auto) (0.0-4.3) % Baso % (Auto) (0.0-1.8) % Lymph # (Auto) (1.2-5.4) K/mm3 [place] # (Auto) (0.0-0.8) K/mm3 Eos # (Auto) (0.0-0.4) K/mm3 Baso # (Auto) (0.0-0.1) K/mm3 Seg Neutrophils % (40.0-70.0) % Seg Neutrophils # (1.8-7.7) K/mm3 PT (12.2-14.9) Sec. INR (0.87-1.13) Sodium (137-145) mmol/L Potassium (3.6-5.0) mmol/L Chloride (98-107) mmol/L Carbon Dioxide (22-30) mmol/L Anion Gap mmol/L BUN (7-17) mg/dL Creatinine (0.6-1.2) mg/dL Estimated GFR ml/min BUN/Creatinine Ratio % Glucose (65-100) mg/dL Lactic Acid 1.00 (0.7-2.0) mmol/L Calcium (8.4-10.2) mg/dL Total Bilirubin (0.1-1.2) mg/dL AST (5-40) units/L ALT (7-56) units/L Alkaline Phosphatase (35-129) units/L Total Creatine Kinase 95 (30-135) units/L Total Protein (6.3-8.2) g/dL Albumin (3.9-5) g/dL Albumin/Globulin Ratio % - EKG Data -: EKG Interpreted by Nd EKG shows normal: sinus rhythm, ST-T waves (No STEMI) Rate: tachycardia (115) - Radiology Data Radiology results: report reviewed CT LEFT LOWER EXTREMITY HISTORY: Provided clinical history of left leg infection below the with hardware COMPARISON: Tib-fib radiographs from 07/28/2020; CT lower extremity 02/16/2020 TECHNIQUE: Routine post-contrast CT of the left lower extremity obtained. CONTRAST: 100 cc Omnipaque 300 FINDINGS: Bones/articulations: Essentially unchanged appearance of the osseous structures with postoperative change at the proximal tibia and chronic deformity at the proximal fibula. Hardware has been removed prior to the comparison CT. No acute fracture or aggressive osseous lesion. No definite evidence of osteomyelitis. Small knee effusion, septic arthritis not excluded. Muscles: No significant abnormality. Subcutaneous soft tissues: Moderate amount of edema and inflammation lateral to the tibial plateau in the same region of the abscess on 02/16/2020. Today there is a subtle small fluid collection measuring approximately 1.5 cm possibly representing abscess. No subcutaneous emphysema. Additional Findings: Incidentally visualized right lower extremity demonstrates no significant abnormality. IMPRESSION: 1. Moderate edema/inflammation lateral to the tibial plateau in the same region of the abscess on 02/16/2020. Today there is a subtle small fluid collection possibly representing an abscess. There is a small effusion in the adjacent left knee, septic arthritis not excluded. Consider fluid aspiration for further evaluation. Unchanged postoperative appearance of the left tibia without definite evidence of osteomyelitis. CHEST 1 VIEW INDICATION / CLINICAL INFORMATION: sepsis. COMPARISON: 04/06/2020 FINDINGS: SUPPORT DEVICES: None. HEART / MEDIASTINUM: No significant abnormality. LUNGS / PLEURA: No significant pulmonary or pleural abnormality. No pneumothorax . ADDITIONAL FINDINGS: No significant additional findings. IMPRESSION: 1. No acute findings. LEFT TIBIA-FIBULA 2 VIEW(S) INDICATION / CLINICAL INFORMATION: left lateral leg infection with hardwear COMPARISON: CT left lower extremity 02/16/2020 FINDINGS: BONES / JOINT(S): Postoperative change in the proximal tibia status post hardware removal. No acute fracture or dislocation. Mild degenerative change. SOFT TISSUES: Mild induration/swelling in the subcutaneous soft tissues lateral to the knee. ADDITIONAL FINDINGS: None. DUPLEX DOPPLER LOWER EXTREMITY VEINS, LEFT INDICATION / CLINICAL INFORMATION: left leg pain. TECHNIQUE: Duplex doppler imaging was performed through the veins of the left lower extremity using venous compression and other maneuvers. COMPARISON: None available. FINDINGS: LEFT COMMON FEMORAL VEIN: Negative. LEFT FEMORAL VEIN: Negative. LEFT POPLITEAL VEIN: Negative. LEFT CALF VEINS: Negative. ADDITIONAL FINDINGS: None. IMPRESSION: 1. No sonographic evidence for DVT in the left lower extremity. - Medical Decision Making Plan to admit patient to the hospital for IV antibiotics and pain management with orthopedic consultation. Low suspicion for septic arthritis at this time lack tenderness to knee or pain with flexion of the knee. Patient has pain along the lateral proximal tibia with knee flexion, palpation, and movement. At this time patient is not exhibiting signs of septic shock. Patient requiring multiple doses of Dilaudid for pain control and likely has a pain tolerance secondary to chronic pain and Percocet use. Case discussed with Dr. Willis. Patient to be admitted to hospitalist service Critical Care Time: No Critical care attestation.: If time is entered above; I have spent that time in minutes in the direct care of this critically ill patient, excluding procedure time. ED Disposition Clinical Impression: Left leg cellulitis, Abscess of left leg Disposition: OP ADMIT IP TO THIS HOSP Is pt being admited?: Yes Condition: Stable Time of Disposition: 19:27
[2020-07-28 19:30] LABS: Bilirubin,Urine NEG (Negative); Blood,Urine MOD (Negative); Color,Urine Straw (Yellow); Protein,Urine <15 mg/dL mg/dL (Negative); Urobilinogen,Urine < 2.0 mg/dL (<2.0)
[2020-07-28] MEDS ORDERED: MAGNESIUM HYDROXIDE (MOM) ORAL LIQD UDC PO PRN (22:51)
[2020-07-28] MEDS ORDERED: ONDANSETRON 4 MG/2 ML INJ IV PRN (22:51)
--- NOTE | 2020-07-28 23:04 | History and Physical Report ---
History of Present Illness Date of examination: 07/28/20 Date of admission: 07/28/20 20:40 Chief complaint: Left leg pain History of present illness: 49-year-old female with known history of hypertension, GERD, hyperlipidemia, history of osteomyelitis with PICC line placement in the past, perirectal abscess status post incision and drainage and chronic pain syndrome presenting to the emergency room today complaining of swelling and pain in the left leg around the knee area. This has been ongoing for about 1 week and she has had associated fever. She has had surgery and hardware placement in the left knee in the past. Hardware was removed when it got infected. She denies any recent trauma or fall. Patient has taken some acetaminophen for the fever today. She however takes Percocet as needed for chronic back pain but indicates that the Percocet has not been helping with her pain today. Patient denies any chest pain or shortness of breath, no nausea or vomiting, no diarrhea, no hematuria or dysuria, no headache or dizziness. Patient has been placed on empiric IV antibiotics for cellulitis of the lateral aspect of the left knee. Past History Past Medical History: diabetes, GERD, hypertension, hyperlipidemia, other (Kidney stones, H/O Perirectal Abscess,Chronic pain syndrome,Spinal Stenosis,H/O Osteomyelitis.) Past Surgical History: Other (Infected left left leg hardware removal in 2019,H/O PICC line placement.) Social history: no significant social history Family history: no significant family history Medications and Allergies Allergies Allergy/AdvReac Type Severity Reaction Status Date / Time aspirin Allergy Swelling Verified 04/06/20 12:15 hydroxyzine HCl Allergy Anaphylaxis Verified 04/06/20 12:15 [From Vistaril] hydroxyzine pamoate Allergy Anaphylaxis Verified 04/06/20 12:15 [From Vistaril] ketorolac tromethamine Allergy Swelling Verified 04/06/20 12:15 [From Toradol] Penicillins Allergy Anaphylaxis Verified 04/06/20 12:15 tramadol Allergy Shortness Verified 04/06/20 12:15 of Breath vancomycin Allergy Rash Verified 04/06/20 12:15 Home Medications Medication Instructions Recorded Confirmed Last Taken Type ALPRAZolam [Xanax TAB] 2 mg PO QHS PRN #15 tablet 03/25/20 07/28/20 Unknown Rx Simvastatin 10 mg PO DAILY #30 03/25/20 07/28/20 Unknown Rx Cyclobenzaprine [Flexeril 10 MG 10 mg PO TID PRN #14 04/28/20 07/28/20 Unknown Rx TAB] Doxycycline Hyclate 100 mg PO BID #14 tablet. 04/28/20 07/28/20 Unknown Rx oxyCODONE /ACETAMINOPHEN [Percocet 2 tab PO Q6H PRN #10 tablet 04/28/20 07/28/20 Unknown Rx 5/325 mg] Active Meds: Active Medications Aztreonam (Azactam/Ns 1 Gm/50 Ml) 1 gm in 50 mls @ 50 mls/hr IV Q8HR AJSON; Protocol Last Admin: 07/28/20 16:10 Dose: 50 mls/hr Documented by: Clindamycin HCl (Cleocin 600 Mg/50 Ml) 600 mg in 50 mls @ 100 mls/hr IV Q8HR JASON; Protocol Last Admin: 07/28/20 22:57 Dose: 100 mls/hr Documented by: Review of Systems Constitutional: no fever, no chills Ears, nose, mouth and throat: no nasal congestion, no sore throat Cardiovascular: no chest pain, no palpitations Respiratory: no cough, no shortness of breath Gastrointestinal: no abdominal pain, no nausea, no vomiting, no diarrhea Genitourinary Female: no flank pain, no dysuria, no hematuria Musculoskeletal: redness of joints (Left knee), no neck pain, no low back pain Integumentary: no rash, no pruritis Neurological: no headaches, no confusion Psychiatric: no anxiety, no depression Exam - Constitutional Vitals: Temp Pulse Resp BP Pulse Ox 98.5 F 120 H 19 152/90 99 07/28/20 22:10 07/28/20 22:10 07/28/20 22:10 07/28/20 22:10 07/28/20 22:10 General appearance: Present: no acute distress, well-nourished - EENT Eyes: Present: PERRL, EOM intact. Absent: scleral icterus ENT: hearing intact, clear oral mucosa, dentition normal - Neck Neck: Present: supple, normal ROM - Respiratory Respiratory effort: normal Respiratory: bilateral: CTA - Cardiovascular Rhythm: regular Heart Sounds: Present: S1 & S2. Absent: gallop, systolic murmur, diastolic murmur, rub - Extremities Extremities: no ischemia, pulses intact, pulses symmetrical, No edema, Full ROM Extremity abnormal: tenderness (Lateral aspect of left knee, warm to touch with Mild redness.) Peripheral Pulses: within normal limits - Abdominal General gastrointestinal: Present: soft, non-tender, non-distended, normal bowel sounds. Absent: mass - Integumentary Integumentary: Present: clear, warm, dry. Absent: rash - Musculoskeletal Musculoskeletal: strength equal bilaterally - Psychiatric Psychiatric: appropriate mood/affect, intact judgment & insight, memory intact, cooperative - Neurologic Neurologic: CNII-XII intact, no focal deficits, moves all extremities Results - Labs CBC & Chem 7: 07/28/20 15:00 07/28/20 15:00 Labs: Abnormal lab results 07/28/20 07/28/20 Range/Units 15:00 15:00 WBC 11.1 H (4.5-11.0) K/mm3 RDW 18.0 H (13.2-15.2) % [place] % (Auto) 11.9 H (0.0-7.3) % [place] # (Auto) 1.3 H (0.0-0.8) K/mm3 Seg Neutrophils % 72.7 H (40.0-70.0) % Seg Neutrophils # 8.0 H (1.8-7.7) K/mm3 Sodium 136 L (137-145) mmol/L Chloride 96.8 L (98-107) mmol/L Creatinine 0.5 L (0.6-1.2) mg/dL Assessment and Plan - Patient Problems (1) Left leg cellulitis Current Visit: Yes Status: Acute Plan to address problem: Patient placed on empiric IV antibiotics. Orthopedic surgeon has been consulted for evaluation. (2) DVT prophylaxis Current Visit: No Status: Acute Plan to address problem: Patient placed on sequential compression device. We will hold anticoagulation in view of possible surgical intervention. (3) Full code status Current Visit: Yes Status: Acute
[2020-07-28] MEDS: SODIUM CHLORIDE 0.9% 1000 ML 1,000 ML IV SCH (23:26)
[2020-07-28] MEDS: MORPHINE 2 MG/1 ML INJ IV PRN (23:26)
[2020-07-28] MEDS: ACETAMINOPHEN 325 MG TAB PO PRN (23:26)
[2020-07-29] MEDS: MORPHINE 2 MG/1 ML INJ IV PRN ×2 (04:42→09:50)
[2020-07-29] MEDS: CLINDAMYCIN 600 MG/50 mL 600 MG/50 ML BAG IV SCH ×3 (05:02→22:28)
[2020-07-29] MEDS: AZTREONAM/NS 1 GM/50 ML 1 GM/50 ML VIAL IV SCH ×3 (05:37→22:28)
[2020-07-29] MEDS: ACETAMINOPHEN 325 MG TAB PO PRN (06:59)
[2020-07-29 08:10] LABS: Basophils % (Auto) 0.4 % (0.0-1.8); Eosinophils # (Auto) 0.1 K/mm3 (0.0-0.4); Eosinophils % (Auto) 0.5 % (0.0-4.3); Hematocrit 30.6 % (30.3-42.9); Hemoglobin 10.3 gm/dl (10.1-14.3); Lymphocytes # (Auto) 1.6 K/mm3 (1.2-5.4); Lymphocytes % (Auto) 15.1 % (13.4-35.0); Mean Corpuscular HGB Conc 34 % (30-34); Mean Corpuscular Volume 87 fl (79-97); Monocytes # (Auto) 1.2 K/mm3 (0.0-0.8); Monocytes % (Auto) 10.9 % (0.0-7.3); Platelet Count 319 K/mm3 (140-440); Red Blood Count 3.51 M/mm3 (3.65-5.03); Red Cell Distribution Width 17.9 % (13.2-15.2)
[2020-07-29 08:17] LABS: INR 1.12 (0.87-1.13)
[2020-07-29 08:29] LABS: Blood Urea Nitrogen 6 mg/dL (7-17); Calcium 8.3 mg/dL (8.4-10.2); Hemolysis Index 37
[2020-07-29 08:30] LABS: BUN/Creatinine Ratio 12
--- NOTE | 2020-07-29 15:02 | Progress Note ---
Assessment and Plan Assessment and plan: 49-year-old female with known history of hypertension, GERD, hyperlipidemia, history of osteomyelitis with PICC line placement in the past, perirectal abscess status post incision and drainage and chronic pain syndrome presenting to the emergency room today complaining of swelling and pain in the left leg around the knee area. This has been ongoing for about 1 week and she has had associated fever. She has had surgery and hardware placement in the left knee in the past. Hardware was removed when it got infected. She denies any recent trauma or fall. Patient has taken some acetaminophen for the fever today. She however takes Percocet as needed for chronic back pain but indicates that the Percocet has not been helping with her pain today. Patient denies any chest pain or shortness of breath, no nausea or vomiting, no diarrhea, no hematuria or dysuria, no headache or dizziness. Patient has been placed on empiric IV antibiotics for cellulitis of the lateral aspect of the left knee. 07/29: Patient still in pain, no new fever, Will obtain ID consultation as patient has complex clinical process due to recurrent skin and soft tissue infections including perirectal abscess in the past and now site of prior surgical intervention in the knee. Await orthopedic consultation. CXR: IMPRESSION: 1. No acute findings. CT Lower ext lt :IMPRESSION: 1. Moderate edema/inflammation lateral to the tibial plateau in the same region of the abscess on 02/16/2020. Today there is a subtle small fluid collection possibly representing an abscess. There is a small effusion in the adjacent left knee, septic arthritis not excluded. Consider fluid aspiration for further evaluation. Unchanged postoperative appearance of the left tibia without definite evidence of osteomyelitis. vl venous duplex IMPRESSION: 1. No sonographic evidence for DVT in the left lower extremity. Left leg cellulitis Current Visit: Yes Status: Acute Plan to address problem: Patient placed on empiric IV antibiotics. Orthopedic surgeon has been consulted for evaluation. Hypertension Hyperlipidemia History of noncompliance Full code status History Interval history: Patient seen and examined, still in pain 8/10 in intensity, with no radiation reported. Hospitalist Physical - Physical exam Narrative exam: General appearance: Present: no acute distress, well-nourished - EENT Eyes: Present: PERRL, EOM intact. Absent: scleral icterus ENT: hearing intact, clear oral mucosa, dentition normal - Neck Neck: Present: supple, normal ROM - Respiratory Respiratory effort: normal Respiratory: bilateral: CTA - Cardiovascular Rhythm: regular Heart Sounds: Present: S1 & S2. Absent: gallop, systolic murmur, diastolic murmur, rub - Extremities Extremities: no ischemia, pulses intact, pulses symmetrical, No edema, Full ROM Extremity abnormal: tenderness (Lateral aspect of left knee, warm to touch with Mild redness.) Peripheral Pulses: within normal limits - Abdominal General gastrointestinal: Present: soft, non-tender, non-distended, normal bowel sounds. Absent: mass - Integumentary Integumentary: Present: clear, warm, dry. Absent: rash - Musculoskeletal Musculoskeletal: strength equal bilaterally - Psychiatric Psychiatric: appropriate mood/affect, intact judgment & insight, memory intact, cooperative - Neurologic Neurologic: CNII-XII intact, no focal deficits, moves all extremities - Constitutional Vitals: Temp Pulse Resp BP Pulse Ox 100.5 F H 119 H 17 98/57 94 07/29/20 12:01 07/29/20 12:01 07/29/20 12:01 07/29/20 12:01 07/29/20 12:01 General appearance: Present: no acute distress, well-nourished Results - Labs CBC & Chem 7: 07/29/20 07:10 07/29/20 07:10 Labs: Laboratory Last Values WBC 10.8 K/mm3 (4.5-11.0) 07/29/20 07:10 RBC 3.51 M/mm3 (3.65-5.03) L 07/29/20 07:10 Hgb 10.3 gm/dl (10.1-14.3) 07/29/20 07:10 Hct 30.6 % (30.3-42.9) D 07/29/20 07:10 MCV 87 fl (79-97) 07/29/20 07:10 MCH 29 pg (28-32) 07/29/20 07:10 MCHC 34 % (30-34) 07/29/20 07:10 RDW 17.9 % (13.2-15.2) H 07/29/20 07:10 Plt Count 319 K/mm3 (140-440) 07/29/20 07:10 Lymph % (Auto) 15.1 % (13.4-35.0) 07/29/20 07:10 [place] % (Auto) 10.9 % (0.0-7.3) H 07/29/20 07:10 Eos % (Auto) 0.5 % (0.0-4.3) 07/29/20 07:10 Baso % (Auto) 0.4 % (0.0-1.8) 07/29/20 07:10 Lymph # (Auto) 1.6 K/mm3 (1.2-5.4) 07/29/20 07:10 [place] # (Auto) 1.2 K/mm3 (0.0-0.8) H 07/29/20 07:10 Eos # (Auto) 0.1 K/mm3 (0.0-0.4) 07/29/20 07:10 Baso # (Auto) 0.0 K/mm3 (0.0-0.1) 07/29/20 07:10 Seg Neutrophils % 73.1 % (40.0-70.0) H 07/29/20 07:10 Seg Neutrophils # 7.9 K/mm3 (1.8-7.7) H 07/29/20 07:10 PT 14.5 Sec. (12.2-14.9) 07/29/20 04:00 INR 1.12 (0.87-1.13) 07/29/20 04:00 Sodium 135 mmol/L (137-145) L 07/29/20 07:10 Potassium 4.2 mmol/L (3.6-5.0) 07/29/20 07:10 Chloride 100.2 mmol/L (98-107) 07/29/20 07:10 Carbon Dioxide 25 mmol/L (22-30) 07/29/20 07:10 Anion Gap 14 mmol/L 07/29/20 07:10 BUN 6 mg/dL (7-17) L 07/29/20 07:10 Creatinine 0.5 mg/dL (0.6-1.2) L 07/29/20 07:10 Estimated GFR > 60 ml/min 07/29/20 07:10 BUN/Creatinine Ratio 12 % 07/29/20 07:10 Glucose 117 mg/dL (65-100) H 07/29/20 07:10 Lactic Acid 1.20 mmol/L (0.7-2.0) 07/28/20 20:50 Calcium 8.3 mg/dL (8.4-10.2) L 07/29/20 07:10 Total Bilirubin 0.40 mg/dL (0.1-1.2) 07/28/20 15:00 AST 12 units/L (5-40) 07/28/20 15:00 ALT 14 units/L (7-56) 07/28/20 15:00 Alkaline Phosphatase 91 units/L (35-129) 07/28/20 15:00 Total Creatine Kinase 95 units/L (30-135) 07/28/20 15:00 Total Protein 7.9 g/dL (6.3-8.2) 07/28/20 15:00 Albumin 4.2 g/dL (3.9-5) 07/28/20 15:00 Albumin/Globulin Ratio 1.1 % 07/28/20 15:00 Urine Color Straw (Yellow) 07/28/20 19:18 Urine Turbidity Clear (Clear) 07/28/20 19:18 Urine pH 5.0 (5.0-7.0) 07/28/20 19:18 Urine Protein <15 mg/dl mg/dL (Negative) 07/28/20 19:18 Urine Glucose (UA) Neg mg/dL (Negative) 07/28/20 19:18 Urine Ketones Neg mg/dL (Negative) 07/28/20 19:18 Urine Blood Mod (Negative) 07/28/20 19:18 Urine Nitrite Neg (Negative) 07/28/20 19:18 Urine Bilirubin Neg (Negative) 07/28/20 19:18 Urine Urobilinogen < 2.0 mg/dL (<2.0) 07/28/20 19:18 Ur Leukocyte Esterase Neg (Negative) 07/28/20 19:18 Urine WBC (Auto) 1.0 /HPF (0.0-6.0) 07/28/20 19:18 Urine RBC (Auto) 2.0 /HPF (0.0-6.0) 07/28/20 19:18 U Epithel Cells (Auto) 1.0 /HPF (0-13.0) 07/28/20 19:18 Microbiology: Microbiology 07/28/20 15:00 Peripheral/Venous Blood Culture - Preliminary Culture in Progress 07/28/20 15:00 Peripheral/Venous Blood Culture - Preliminary Culture in Progress Rubi/IV: Voiding Method Toilet IV Catheter Type [Right Hand] INT / Saline Lock Active Medications - Current Medications Current Medications: Generic Name Dose Route Start Last Admin Trade Name Freq PRN Reason Stop Dose Admin Acetaminophen 650 mg 07/28/20 22:51 07/29/20 06:59 Tylenol PO 650 mg Q4H PRN Administration Pain MILD(1-3)/Fever >100.5/BURCIAGA Aztreonam 1 gm in 50 mls @ 50 mls/hr 07/28/20 15:00 07/29/20 05:37 Azactam/Ns 1 Gm/50 Ml IV 50 mls/hr Q8HR JASON Administration Protocol Clindamycin HCl 600 mg in 50 mls @ 100 mls/hr 07/28/20 15:00 07/29/20 05:02 Cleocin 600 Mg/50 Ml IV 100 mls/hr Q8HR JASON Administration Protocol Sodium Chloride 1,000 mls @ 125 mls/hr 07/28/20 23:00 07/28/20 23:26 Nacl 0.9% 1000 Ml IV 125 mls/hr DIRECT JASON Administration Magnesium Hydroxide 30 ml 07/28/20 22:51 Milk Of Magnesia PO Q4H PRN Constipation Morphine Sulfate 2 mg 07/28/20 22:51 07/29/20 09:50 Morphine IV 2 mg Q4H PRN Administration Pain, Moderate (4-6) Ondansetron HCl 4 mg 07/28/20 22:51 Zofran IV Q8H PRN Nausea And Vomiting Sodium Chloride 10 ml 07/29/20 10:00 07/29/20 09:54 Sodium Chloride Flush Syringe 10 Ml IV 10 ml BID JASON Administration Sodium Chloride 10 ml 07/28/20 22:51 Sodium Chloride Flush Syringe 10 Ml IV PRN PRN LINE FLUSH
[2020-07-29] MEDS: HYDROmorphone 1 MG/1 ML INJ IV PRN ×3 (16:35→23:43)
[2020-07-29] MEDS ORDERED: VANCOMYCIN/NS 1 GM/250 ML 1 GM/250 ML BAG IV SCH (17:00)
[2020-07-29] MEDS: SODIUM CHLORIDE 0.9% 1000 ML 1,000 ML IV SCH ×2 (20:37→23:44)
[2020-07-30] MEDS: HYDROmorphone 1 MG/1 ML INJ IV PRN ×6 (04:19→21:19)
[2020-07-30] MEDS: CLINDAMYCIN 600 MG/50 mL 600 MG/50 ML BAG IV SCH (06:36)
[2020-07-30] MEDS: AZTREONAM/NS 1 GM/50 ML 1 GM/50 ML VIAL IV SCH (06:36)
[2020-07-30 07:53] LABS: Hematocrit 30.2 % (30.3-42.9); Mean Corpuscular HGB Conc 33 % (30-34); Mean Corpuscular Volume 87 fl (79-97); Platelet Count 342 K/mm3 (140-440); Red Blood Count 3.48 M/mm3 (3.65-5.03); Red Cell Distribution Width 17.3 % (13.2-15.2)
[2020-07-30 08:05] LABS: Blood Urea Nitrogen 8 mg/dL (7-17); Calcium 8.3 mg/dL (8.4-10.2); Hemolysis Index 1
[2020-07-30 08:07] LABS: BUN/Creatinine Ratio 16
--- NOTE | 2020-07-30 08:30 | Consultation ---
History of Present Illness - Reason for Consult Consult date: 07/30/20 Past History Past Medical History: diabetes, GERD, hypertension, hyperlipidemia, other (Kidney stones, H/O Perirectal Abscess,Chronic pain syndrome,Spinal Stenosis,H/O Osteomyelitis.) Past Surgical History: Other (Infected left left leg hardware removal in 2019,H/O PICC line placement.) Social history: no significant social history Family history: no significant family history Medications and Allergies Allergies Allergy/AdvReac Type Severity Reaction Status Date / Time aspirin Allergy Swelling Verified 04/06/20 12:15 hydroxyzine HCl Allergy Anaphylaxis Verified 04/06/20 12:15 [From Vistaril] hydroxyzine pamoate Allergy Anaphylaxis Verified 04/06/20 12:15 [From Vistaril] ketorolac tromethamine Allergy Swelling Verified 04/06/20 12:15 [From Toradol] Penicillins Allergy Anaphylaxis Verified 04/06/20 12:15 tramadol Allergy Shortness Verified 04/06/20 12:15 of Breath vancomycin Allergy Rash Verified 04/06/20 12:15 Home Medications Medication Instructions Recorded Confirmed Last Taken Type ALPRAZolam [Xanax TAB] 2 mg PO QHS PRN #15 tablet 03/25/20 07/28/20 Unknown Rx Simvastatin 10 mg PO DAILY #30 03/25/20 07/28/20 Unknown Rx Cyclobenzaprine [Flexeril 10 MG 10 mg PO TID PRN #14 04/28/20 07/28/20 Unknown Rx TAB] Doxycycline Hyclate 100 mg PO BID #14 tablet. 04/28/20 07/28/20 Unknown Rx oxyCODONE /ACETAMINOPHEN [Percocet 2 tab PO Q6H PRN #10 tablet 04/28/20 07/28/20 Unknown Rx 5/325 mg] Active Meds: Active Medications Acetaminophen (Tylenol) 650 mg PO Q4H PRN PRN Reason: Pain MILD(1-3)/Fever >100.5/BURCIAGA Last Admin: 07/29/20 06:59 Dose: 650 mg Documented by: Hydromorphone HCl (Dilaudid) 0.5 mg IV Q3H PRN PRN Reason: Pain , Severe (7-10) Last Admin: 07/30/20 04:19 Dose: 0.5 mg Documented by: Aztreonam (Azactam/Ns 1 Gm/50 Ml) 1 gm in 50 mls @ 50 mls/hr IV Q8HR JASON; Protocol Last Infusion: 07/30/20 08:03 Dose: Infused Documented by: Clindamycin HCl (Cleocin 600 Mg/50 Ml) 600 mg in 50 mls @ 100 mls/hr IV Q8HR JASON; Protocol Last Infusion: 07/30/20 08:03 Dose: Infused Documented by: Sodium Chloride (Nacl 0.9% 1000 Ml) 1,000 mls @ 125 mls/hr IV DIRECT JASON Last Infusion: 07/30/20 08:03 Dose: Infused Documented by: Magnesium Hydroxide (Milk Of Magnesia) 30 ml PO Q4H PRN PRN Reason: Constipation Morphine Sulfate (Morphine) 2 mg IV Q4H PRN PRN Reason: Pain, Moderate (4-6) Last Admin: 07/29/20 09:50 Dose: 2 mg Documented by: Ondansetron HCl (Zofran) 4 mg IV Q8H PRN PRN Reason: Nausea And Vomiting Sodium Chloride (Sodium Chloride Flush Syringe 10 Ml) 10 ml IV BID JASON Last Admin: 07/29/20 22:31 Dose: 10 ml Documented by: Sodium Chloride (Sodium Chloride Flush Syringe 10 Ml) 10 ml IV PRN PRN PRN Reason: LINE FLUSH Last Admin: 07/29/20 22:30 Dose: 10 ml Documented by: Physical Examination - Constitutional Vitals: Vital Signs Temp Pulse Resp BP Pulse Ox 99.4 F 109 H 20 110/66 88 07/30/20 04:32 07/30/20 04:32 07/30/20 04:32 07/30/20 04:32 07/30/20 04:32 Temperature -Last 24 Hours Temperature 99.4 F Temperature 99.7 F Temperature 99.0 F Temperature 100.5 F Results - Labs CBC & Chem 7: 07/30/20 06:50 07/30/20 06:50 Labs: Abnormal lab results 07/29/20 07/30/20 07/30/20 Range/Units 07:10 06:50 06:50 RBC 3.48 L (3.65-5.03) M/mm3 Hgb 10.0 L (10.1-14.3) gm/dl Hct 30.2 L (30.3-42.9) % RDW 17.3 H (13.2-15.2) % Sodium 135 L (137-145) mmol/L BUN 6 L (7-17) mg/dL Creatinine 0.5 L 0.5 L (0.6-1.2) mg/dL Glucose 117 H 102 H (65-100) mg/dL Calcium 8.3 L 8.3 L (8.4-10.2) mg/dL
--- NOTE | 2020-07-30 08:31 | Consultation ---
History of Present Illness - Reason for Consult Consult date: 07/30/20 left knee septic joint Requesting physician: JOHN MCKEE - History of Present Illness 49 years old female with history of obesity, hypertension, spinal stenosis, MSSA left tibial osteomyelitis and septic knee, with retained infected hardware, then removed and subsequent abscess in January 2020 secondary to Proteus, E. coli, Klebsiella and E faecalis, also recurrent gluteal abscesses with multiple hos pitalizations, most recently March 2020, discharged on minocycline for 10 days, noncompliant with appointments or treatments, known to ID service, admitted on 07/28/2020 due to 1-week history of left knee swelling, pain and fever. Fever was high at 102. Patient denies any recent injury or trauma. On arrival, temperature 98.5-101.9, HR 122, RR 18, O2 sat 96%, BP 137/83. Initial WBC 11.1. Urinalysis negative. Blood cultures 07/28/[address] of the leg shows moderate edema lateral to the tibial plateau with small fluid collection 1.5 cm, small left knee effusion. Review of Systems: positive in bold print General: fever, chills, malaise Cutaneous: rash, pruritus Head: headaches or injury Eyes: changes in vision, eye pain, double vision Ears: ear pain, ear discharge, ringing or hearing loss Nose: nose bleeding, stuffiness Mouth & throat: bleeding gums, horseness, no dental problems, or swollen glands Neck: no pain, node enlargement/lumps, tyroid enlargement or tenderness Respiratory: SOB, cough, RAMOS, wheezing, sputum, hemoptysis, pleuritic chest pain Cardiovascular: chest pain, leg edema, cyanosis, RAMOS, orthopnea Musculoskeletal: Left knee edema, pain Gastrointestinal: nausea, vomiting, hematemesis, diarrhea, constipation, melena, bright red blood in stools, fecal incontinence, jaundice Genitourinary/Reproductive: frequent urination, dysuria, hematuria, incontinence Neurogical: seizures, headaches, weakness, paresthesias, loss of speech or vision; memory loss, vertigo, tremors, numbness Psychiatric: stable mood; excessive anxiety, sadness or moodiness Past History Past Medical History: diabetes, GERD, hypertension, hyperlipidemia, other (Kidney stones, H/O Perirectal Abscess,Chronic pain syndrome,Spinal Stenosis,H/O Osteomyelitis.) Past Surgical History: Other (Infected left left leg hardware removal in 2019,H/O PICC line placement.) Social history: no significant social history Family history: no significant family history Medications and Allergies Allergies Allergy/AdvReac Type Severity Reaction Status Date / Time aspirin Allergy Swelling Verified 04/06/20 12:15 hydroxyzine HCl Allergy Anaphylaxis Verified 04/06/20 12:15 [From Vistaril] hydroxyzine pamoate Allergy Anaphylaxis Verified 04/06/20 12:15 [From Vistaril] ketorolac tromethamine Allergy Swelling Verified 04/06/20 12:15 [From Toradol] Penicillins Allergy Anaphylaxis Verified 04/06/20 12:15 tramadol Allergy Shortness Verified 04/06/20 12:15 of Breath vancomycin Allergy Rash Verified 04/06/20 12:15 Home Medications Medication Instructions Recorded Confirmed Last Taken Type ALPRAZolam [Xanax TAB] 2 mg PO QHS PRN #15 tablet 03/25/20 07/28/20 Unknown Rx Simvastatin 10 mg PO DAILY #30 03/25/20 07/28/20 Unknown Rx Cyclobenzaprine [Flexeril 10 MG 10 mg PO TID PRN #14 04/28/20 07/28/20 Unknown Rx TAB] Doxycycline Hyclate 100 mg PO BID #14 tablet. 04/28/20 07/28/20 Unknown Rx oxyCODONE /ACETAMINOPHEN [Percocet 2 tab PO Q6H PRN #10 tablet 04/28/20 07/28/20 Unknown Rx 5/325 mg] Active Meds: Active Medications Acetaminophen (Tylenol) 650 mg PO Q4H PRN PRN Reason: Pain MILD(1-3)/Fever >100.5/BURCIAGA Last Admin: 07/29/20 06:59 Dose: 650 mg Documented by: Hydromorphone HCl (Dilaudid) 0.5 mg IV Q3H PRN PRN Reason: Pain , Severe (7-10) Last Admin: 07/30/20 04:19 Dose: 0.5 mg Documented by: Aztreonam (Azactam/Ns 1 Gm/50 Ml) 1 gm in 50 mls @ 50 mls/hr IV Q8HR [facility]; Protocol Last Infusion: 07/30/20 08:03 Dose: Infused Documented by: Clindamycin HCl (Cleocin 600 Mg/50 Ml) 600 mg in 50 mls @ 100 mls/hr IV Q8HR [facility]; Protocol Last Infusion: 07/30/20 08:03 Dose: Infused Documented by: Sodium Chloride (Nacl 0.9% 1000 Ml) 1,000 mls @ 125 mls/hr IV DIRECT [facility] Last Infusion: 07/30/20 08:03 Dose: Infused Documented by: Magnesium Hydroxide (Milk Of Magnesia) 30 ml PO Q4H PRN PRN Reason: Constipation Morphine Sulfate (Morphine) 2 mg IV Q4H PRN PRN Reason: Pain, Moderate (4-6) Last Admin: 07/29/20 09:50 Dose: 2 mg Documented by: Ondansetron HCl (Zofran) 4 mg IV Q8H PRN PRN Reason: Nausea And Vomiting Sodium Chloride (Sodium Chloride Flush Syringe 10 Ml) 10 ml IV BID [facility] Last Admin: 07/29/20 22:31 Dose: 10 ml Documented by: Sodium Chloride (Sodium Chloride Flush Syringe 10 Ml) 10 ml IV PRN PRN PRN Reason: LINE FLUSH Last Admin: 07/29/20 22:30 Dose: 10 ml Documented by: Physical Examination - Physical Exam Narrative exam: General appearance: Alert in NAD pleasant Eyes: anicteric sclerae, moist conjunctivae; no lid-lag; PERRLA HENT: Normocephalic, Atraumatic; normal external ears, nares open, oropharynx clear with moist mucous membranes and no oral thrush; normal hard and soft palate. Neck: supple, tracheal midline, no JVD Lungs: CTA, with normal respiratory effort and no intercostal retractions CV: RRR no murmur Abdomen: Soft, non-tender; no masses or hepatosplenomegaly Extremities: Left knee lateral edema, tenderness and heat, very tender to palpation Skin: No rash. Psych: no agitated Neuro: alert and oriented x 3. Moving all extermities - Constitutional Vitals: Vital Signs Temp Pulse Resp BP Pulse Ox 99.4 F 109 H 20 110/66 88 07/30/20 04:32 07/30/20 04:32 07/30/20 04:32 07/30/20 04:32 07/30/20 04:32 Temperature -Last 24 Hours Temperature 99.4 F Temperature 99.7 F Temperature 99.0 F Temperature 100.5 F Results - Labs CBC & Chem 7: 10/30/20 06:50 07/30/20 06:50 Labs: Abnormal lab results 07/30/20 07/30/20 Range/Units 06:50 06:50 RBC 3.48 L (3.65-5.03) M/mm3 Hgb 10.0 L (10.1-14.3) gm/dl Hct 30.2 L (30.3-42.9) % RDW 17.3 H (13.2-15.2) % Creatinine 0.5 L (0.6-1.2) mg/dL Glucose 102 H (65-100) mg/dL Calcium 8.3 L (8.4-10.2) mg/dL Assessment and Plan Cultures: Blood cultures 07/28/2020 no growth today Assessment: 49 years old female with history of obesity, hypertension, spinal stenosis, MSSA left tibial osteomyelitis and septic knee, with retained infected hardware, then removed and subsequent abscess in January 2020 secondary to Proteus, E. coli, Klebsiella and E faecalis, drained by Ortho, also recurrent gluteal abscesses requiring multiple hospitalizations, most recently March 2020, discharged on minocycline for 10 days, noncompliant with appointments or treatments, known to ID service, admitted on 07/28/2020 due to 1-week history of left knee swelling, pain and fever at 102: #Sepsis: present on admission with fever, tachycardia; source left knee abscess ? Septic arthritis #Left knee abscess ? Septic knee: Recurrent. Initial MSSA osteomyelitis and septic knee, then developed an abscess in January 2020 secondary to Proteus, E. coli, Klebsiella and E faecalis, drained by Ortho. Now with new swelling and tenderness. CT with fluid collection 1.5 cm and a small left knee effusion. It is unclear if she has septic knee at the same time. #Noncompliant with medications or appointments: Patient had never gone to the ID office despite multiple reminders. #History of recurrent gluteal abscesses: Required multiple admissions and IV antibiotics. #Vancomycin allergy/ penicillin allergy: Tolerates Carbapenems. Recommendations: -Stop aztreonam -Start linezolid 600 mg IV every 12 hours -Start levofloxacin 750 mg IV daily -Orthopedic evaluation for abscess drainage and considering joint aspiration -Obtain CRP Dr. Reynoso will be covering the weekend Will follow. Tasia Roberts MD Infectious Diseases Principal Investigator [facility] ([facility] M [phone] O [phone]
[2020-07-30] MEDS: LINEZOLID 600 MG/300 ML BAG IV SCH ×2 (12:17→21:19)
--- NOTE | 2020-07-30 13:43 | Progress Note ---
Assessment and Plan Assessment and plan: 49-year-old female with known history of hypertension, GERD, hyperlipidemia, history of osteomyelitis with PICC line placement in the past, perirectal abscess status post incision and drainage and chronic pain syndrome presenting to the emergency room today complaining of swelling and pain in the left leg around the knee area. This has been ongoing for about 1 week and she has had associated fever. She has had surgery and hardware placement in the left knee in the past. Hardware was removed when it got infected. She denies any recent trauma or fall. Patient has taken some acetaminophen for the fever today. She however takes Percocet as needed for chronic back pain but indicates that the Percocet has not been helping with her pain today. Patient denies any chest pain or shortness of breath, no nausea or vomiting, no diarrhea, no hematuria or dysuria, no headache or dizziness. Patient has been placed on empiric IV antibiotics for cellulitis of the lateral aspect of the left knee. 07/29: Patient still in pain, no new fever, Will obtain ID consultation as patient has complex clinical process due to recurrent skin and soft tissue infections including perirectal abscess in the past and now site of prior surgical intervention in the knee. Await orthopedic consultation. CXR: IMPRESSION: 1. No acute findings. CT Lower ext lt :IMPRESSION: 1. Moderate edema/inflammation lateral to the tibial plateau in the same region of the abscess on 02/16/2020. Today there is a subtle small fluid collection possibly representing an abscess. There is a small effusion in the adjacent left knee, septic arthritis not excluded. Consider fluid aspiration for further evaluation. Unchanged postoperative appearance of the left tibia without definite evidence of osteomyelitis. vl venous duplex IMPRESSION: 1. No sonographic evidence for DVT in the left lower extremity. 07/30: Left knee showing some abscess. Have discussed with nursing staff to call Ortho to ensure patient is seen today as patient may need drainage. Review of records patient had initial MSSA osteomyelitis and septic knee then developed an abscess in January 2020 secondary to Proteus, E. coli, Klebsiella, E faecalis. CT shows fluid collection of 1.5 cm. We will continue current antibiotics as recommended by infectious disease doctor. Patient is on linezolid 600 mg IV every 12 hours and also Levaquin 750 mg IV daily, Azotrenam has been stopped. Left leg cellulitis Sepsis Left knee abscess Hx of Septic Shock Hypertension Hyperlipidemia History of noncompliance Full code status History Interval history: Patient seen and examined, reports improvement in the pain but still cannot apply pressure to the lower extremity. Hospitalist Physical - Physical exam Narrative exam: General appearance: Present: no acute distress, well-nourished - EENT Eyes: Present: PERRL, EOM intact. Absent: scleral icterus ENT: hearing intact, clear oral mucosa, dentition normal - Neck Neck: Present: supple, normal ROM - Respiratory Respiratory effort: normal Respiratory: bilateral: CTA - Cardiovascular Rhythm: regular Heart Sounds: Present: S1 & S2. Absent: gallop, systolic murmur, diastolic murmur, rub - Extremities Extremities: no ischemia, pulses intact, pulses symmetrical, No edema, Full ROM Extremity abnormal: tenderness (Lateral aspect of left knee, warm to touch with Mild redness.) Peripheral Pulses: within normal limits - Abdominal General gastrointestinal: Present: soft, non-tender, non-distended, normal bowel sounds. Absent: mass - Integumentary Integumentary: Present: clear, warm, dry. Absent: rash - Musculoskeletal Musculoskeletal: strength equal bilaterally - Psychiatric Psychiatric: appropriate mood/affect, intact judgment & insight, memory intact, cooperative - Neurologic Neurologic: CNII-XII intact, no focal deficits, moves all extremities - Constitutional Vitals: Temp Pulse Resp BP Pulse Ox 99.4 F 109 H 20 110/66 88 07/30/20 04:32 07/30/20 04:32 07/30/20 04:32 07/30/20 04:32 07/30/20 04:32 General appearance: Present: no acute distress, well-nourished Results - Labs CBC & Chem 7: 07/30/20 06:50 07/30/20 06:50 Labs: Laboratory Last Values WBC 9.9 K/mm3 (4.5-11.0) 07/30/20 06:50 RBC 3.48 M/mm3 (3.65-5.03) L 07/30/20 06:50 Hgb 10.0 gm/dl (10.1-14.3) L 07/30/20 06:50 Hct 30.2 % (30.3-42.9) L 07/30/20 06:50 MCV 87 fl (79-97) 07/30/20 06:50 MCH 29 pg (28-32) 07/30/20 06:50 MCHC 33 % (30-34) 07/30/20 06:50 RDW 17.3 % (13.2-15.2) H 07/30/20 06:50 Plt Count 342 K/mm3 (140-440) 07/30/20 06:50 Lymph % (Auto) 15.1 % (13.4-35.0) 07/29/20 07:10 [place] % (Auto) 10.9 % (0.0-7.3) H 07/29/20 07:10 Eos % (Auto) 0.5 % (0.0-4.3) 07/29/20 07:10 Baso % (Auto) 0.4 % (0.0-1.8) 07/29/20 07:10 Lymph # (Auto) 1.6 K/mm3 (1.2-5.4) 07/29/20 07:10 [place] # (Auto) 1.2 K/mm3 (0.0-0.8) H 07/29/20 07:10 Eos # (Auto) 0.1 K/mm3 (0.0-0.4) 07/29/20 07:10 Baso # (Auto) 0.0 K/mm3 (0.0-0.1) 07/29/20 07:10 Seg Neutrophils % 73.1 % (40.0-70.0) H 07/29/20 07:10 Seg Neutrophils # 7.9 K/mm3 (1.8-7.7) H 07/29/20 07:10 PT 14.5 Sec. (12.2-14.9) 07/29/20 04:00 INR 1.12 (0.87-1.13) 07/29/20 04:00 Sodium 138 mmol/L (137-145) 07/30/20 06:50 Potassium 4.0 mmol/L (3.6-5.0) 07/30/20 06:50 Chloride 101.9 mmol/L (98-107) 07/30/20 06:50 Carbon Dioxide 27 mmol/L (22-30) 07/30/20 06:50 Anion Gap 13 mmol/L 07/30/20 06:50 BUN 8 mg/dL (7-17) 07/30/20 06:50 Creatinine 0.5 mg/dL (0.6-1.2) L 07/30/20 06:50 Estimated GFR > 60 ml/min 07/30/20 06:50 BUN/Creatinine Ratio 16 % 07/30/20 06:50 Glucose 102 mg/dL (65-100) H 07/30/20 06:50 Lactic Acid 1.20 mmol/L (0.7-2.0) 07/28/20 20:50 Calcium 8.3 mg/dL (8.4-10.2) L 07/30/20 06:50 Total Bilirubin 0.40 mg/dL (0.1-1.2) 07/28/20 15:00 AST 12 units/L (5-40) 07/28/20 15:00 ALT 14 units/L (7-56) 07/28/20 15:00 Alkaline Phosphatase 91 units/L (35-129) 07/28/20 15:00 Total Creatine Kinase 95 units/L (30-135) 07/28/20 15:00 C-Reactive Protein 12.50 mg/dL (0.00-1.30) H 07/30/20 06:50 Total Protein 7.9 g/dL (6.3-8.2) 07/28/20 15:00 Albumin 4.2 g/dL (3.9-5) 07/28/20 15:00 Albumin/Globulin Ratio 1.1 % 07/28/20 15:00 Urine Color Straw (Yellow) 07/28/20 19:18 Urine Turbidity Clear (Clear) 07/28/20 19:18 Urine pH 5.0 (5.0-7.0) 07/28/20 19:18 Urine Protein <15 mg/dl mg/dL (Negative) 07/28/20 19:18 Urine Glucose (UA) Neg mg/dL (Negative) 07/28/20 19:18 Urine Ketones Neg mg/dL (Negative) 07/28/20 19:18 Urine Blood Mod (Negative) 07/28/20 19:18 Urine Nitrite Neg (Negative) 07/28/20 19:18 Urine Bilirubin Neg (Negative) 07/28/20 19:18 Urine Urobilinogen < 2.0 mg/dL (<2.0) 07/28/20 19:18 Ur Leukocyte Esterase Neg (Negative) 07/28/20 19:18 Urine WBC (Auto) 1.0 /HPF (0.0-6.0) 07/28/20 19:18 Urine RBC (Auto) 2.0 /HPF (0.0-6.0) 07/28/20 19:18 U Epithel Cells (Auto) 1.0 /HPF (0-13.0) 07/28/20 19:18 Microbiology: Microbiology 07/28/20 15:00 Peripheral/Venous Blood Culture - Preliminary NO GROWTH AFTER 24 HOURS 07/28/20 15:00 Peripheral/Venous Blood Culture - Preliminary NO GROWTH AFTER 24 HOURS Rubi/IV: Voiding Method Toilet IV Catheter Type [Right Hand] INT / Saline Lock Active Medications - Current Medications Current Medications: Generic Name Dose Route Start Last Admin Trade Name Freq PRN Reason Stop Dose Admin Acetaminophen 650 mg 07/28/20 22:51 07/29/20 06:59 Tylenol PO 650 mg Q4H PRN Administration Pain MILD(1-3)/Fever >100.5/BURCIAGA Hydromorphone HCl 0.5 mg 07/29/20 15:16 07/30/20 12:31 Dilaudid IV 0.5 mg Q3H PRN Administration Pain , Severe (7-10) Sodium Chloride 1,000 mls @ 125 mls/hr 07/28/20 23:00 07/30/20 08:03 Nacl 0.9% 1000 Ml IV Infused DIRECT [facility] Infusion Linezolid 600 mg in 300 mls @ 300 mls/hr 07/30/20 10:00 07/30/20 12:17 Zyvox 600mg/300ml IV 300 mls/hr Q12HR [facility] Administration Protocol Levofloxacin/Dextrose 750 mg in 150 mls @ 100 mls/hr 07/30/20 10:00 07/30/20 09:37 Levaquin 750mg/150ml IV 100 mls/hr Q24HR [facility] Administration Protocol Magnesium Hydroxide 30 ml 07/28/20 22:51 Milk Of Magnesia PO Q4H PRN Constipation Morphine Sulfate 2 mg 07/28/20 22:51 07/29/20 09:50 Morphine IV 2 mg Q4H PRN Administration Pain, Moderate (4-6) Ondansetron HCl 4 mg 07/28/20 22:51 Zofran IV Q8H PRN Nausea And Vomiting Sodium Chloride 10 ml 07/29/20 10:00 07/30/20 09:37 Sodium Chloride Flush Syringe 10 Ml IV 10 ml BID [facility]ASON Administration Sodium Chloride 10 ml 07/28/20 22:51 07/29/20 22:30 Sodium Chloride Flush Syringe 10 Ml IV 10 ml PRN PRN Administration LINE FLUSH
--- NOTE | 2020-07-30 18:06 | Consultation ---
History of Present Illness - [facility] Consult date: 07/30/20 Consult reason: joint pain History of present illness: 49 y/o female with c/o left knee pain and swelling for past wk, no hx of recent injury, well known to me from previous admissions for similar complaints...CT scan done reveal small pocket of fluid lateral border .... Past History Past Medical History: diabetes, GERD, hypertension, hyperlipidemia, other (Kidney stones, H/O Perirectal Abscess,Chronic pain syndrome,Spinal Stenosis,H/O Osteomyelitis.) Past Surgical History: Other (Infected left left leg hardware removal in 2019,H/O PICC line placement.) Social history: no significant social history Family history: no significant family history Medications and Allergies Allergies Allergy/AdvReac Type Severity Reaction Status Date / Time aspirin Allergy Swelling Verified 04/06/20 12:15 hydroxyzine HCl Allergy Anaphylaxis Verified 04/06/20 12:15 [From Vistaril] hydroxyzine pamoate Allergy Anaphylaxis Verified 04/06/20 12:15 [From Vistaril] ketorolac tromethamine Allergy Swelling Verified 04/06/20 12:15 [From Toradol] Penicillins Allergy Anaphylaxis Verified 04/06/20 12:15 tramadol Allergy Shortness Verified 04/06/20 12:15 of Breath vancomycin Allergy Rash Verified 04/06/20 12:15 Home Medications Medication Instructions Recorded Confirmed Last Taken Type ALPRAZolam [Xanax TAB] 2 mg PO QHS PRN #15 tablet 03/25/20 07/28/20 Unknown Rx Simvastatin 10 mg PO DAILY #30 03/25/20 07/28/20 Unknown Rx Cyclobenzaprine [Flexeril 10 MG 10 mg PO TID PRN #14 04/28/20 07/28/20 Unknown Rx TAB] Doxycycline Hyclate 100 mg PO BID #14 tablet. 04/28/20 07/28/20 Unknown Rx oxyCODONE /ACETAMINOPHEN [Percocet 2 tab PO Q6H PRN #10 tablet 04/28/20 07/28/20 Unknown Rx 5/325 mg] Active Meds: Active Medications Acetaminophen (Tylenol) 650 mg PO Q4H PRN PRN Reason: Pain MILD(1-3)/Fever >100.5/BURCIAGA Last Admin: 07/29/20 06:59 Dose: 650 mg Documented by: Hydromorphone HCl (Dilaudid) 0.5 mg IV Q3H PRN PRN Reason: Pain , Severe (7-10) Last Admin: 07/30/20 15:24 Dose: 0.5 mg Documented by: Sodium Chloride (Nacl 0.9% 1000 Ml) 1,000 mls @ 125 mls/hr IV DIRECT [facility]ASON Last Infusion: 07/30/20 08:03 Dose: Infused Documented by: Linezolid (Zyvox 600mg/300ml) 600 mg in 300 mls @ 300 mls/hr IV Q12HR [facility]; Protocol Last Admin: 07/30/20 12:17 Dose: 300 mls/hr Documented by: Levofloxacin/Dextrose (Levaquin 750mg/150ml) 750 mg in 150 mls @ 100 mls/hr IV Q24HR [facility]; Protocol Last Admin: 07/30/20 09:37 Dose: 100 mls/hr Documented by: Magnesium Hydroxide (Milk Of Magnesia) 30 ml PO Q4H PRN PRN Reason: Constipation Morphine Sulfate (Morphine) 2 mg IV Q4H PRN PRN Reason: Pain, Moderate (4-6) Last Admin: 07/29/20 09:50 Dose: 2 mg Documented by: Ondansetron HCl (Zofran) 4 mg IV Q8H PRN PRN Reason: Nausea And Vomiting Sodium Chloride (Sodium Chloride Flush Syringe 10 Ml) 10 ml IV BID [facility] Last Admin: 07/30/20 09:37 Dose: 10 ml Documented by: Sodium Chloride (Sodium Chloride Flush Syringe 10 Ml) 10 ml IV PRN PRN PRN Reason: LINE FLUSH Last Admin: 07/29/20 22:30 Dose: 10 ml Documented by: Physical Examination - Physical exam Narrative exam: LLE - tender proximally slight redness, good passive ROM at knee joint Assessment and Plan left knee pain and swelling suspect small abscess cavity proximally I&D carried out at bedside, small amount purulent material obtained, wound packed
[2020-07-31] MEDS: HYDROmorphone 1 MG/1 ML INJ IV PRN ×6 (01:38→21:28)
[2020-07-31] MEDS: SODIUM CHLORIDE 0.9% 1000 ML 1,000 ML IV SCH ×2 (05:26→19:26)
[2020-07-31] MEDS: LINEZOLID 600 MG/300 ML BAG IV SCH ×2 (11:19→21:27)
--- NOTE | 2020-07-31 12:52 | Progress Note ---
Assessment and Plan Assessment and plan: 49-year-old female with known history of hypertension, GERD, hyperlipidemia, history of osteomyelitis with PICC line placement in the past, perirectal abscess status post incision and drainage and chronic pain syndrome presenting to the emergency room today complaining of swelling and pain in the left leg around the knee area. This has been ongoing for about 1 week and she has had associated fever. She has had surgery and hardware placement in the left knee in the past. Hardware was removed when it got infected. She denies any recent trauma or fall. Patient has taken some acetaminophen for the fever today. She however takes Percocet as needed for chronic back pain but indicates that the Percocet has not been helping with her pain today. Patient denies any chest pain or shortness of breath, no nausea or vomiting, no diarrhea, no hematuria or dysuria, no headache or dizziness. Patient has been placed on empiric IV antibiotics for cellulitis of the lateral aspect of the left knee. 07/29: Patient still in pain, no new fever, Will obtain ID consultation as patient has complex clinical process due to recurrent skin and soft tissue infections including perirectal abscess in the past and now site of prior surgical intervention in the knee. Await orthopedic consultation. CXR: IMPRESSION: 1. No acute findings. CT Lower ext lt :IMPRESSION: 1. Moderate edema/inflammation lateral to the tibial plateau in the same region of the abscess on 02/16/2020. Today there is a subtle small fluid collection possibly representing an abscess. There is a small effusion in the adjacent left knee, septic arthritis not excluded. Consider fluid aspiration for further evaluation. Unchanged postoperative appearance of the left tibia without definite evidence of osteomyelitis. vl venous duplex IMPRESSION: 1. No sonographic evidence for DVT in the left lower extremity. 07/30: Left knee showing some abscess. Have discussed with nursing staff to call Ortho to ensure patient is seen today as patient may need drainage. Review of records patient had initial MSSA osteomyelitis and septic knee then developed an abscess in January 2020 secondary to Proteus, E. coli, Klebsiella, E faecalis. CT shows fluid collection of 1.5 cm. We will continue current antibiotics as recommended by infectious disease doctor. Patient is on linezolid 600 mg IV every 12 hours and also Levaquin 750 mg IV daily, Azotrenam has been stopped. 07/31: Patient underwent I/D yesterday, awaiting culture result., still pending culture result. Abx to continue. Patient has had recurrent infections in the past. Left leg cellulitis Sepsis Left knee abscess Hx of Septic Shock Hypertension Hyperlipidemia History of noncompliance Full code status History Interval history: Patient seen and examined, reports improvement in the pain. Hospitalist Physical - Physical exam Narrative exam: General appearance: Present: no acute distress, well-nourished - EENT Eyes: Present: PERRL, EOM intact. Absent: scleral icterus ENT: hearing intact, clear oral mucosa, dentition normal - Neck Neck: Present: supple, normal ROM - Respiratory Respiratory effort: normal Respiratory: bilateral: CTA - Cardiovascular Rhythm: regular Heart Sounds: Present: S1 & S2. Absent: gallop, systolic murmur, diastolic murmur, rub - Extremities Extremities: no ischemia, pulses intact, pulses symmetrical, No edema, Full ROM Extremity abnormal: tenderness (Lateral aspect of left knee, warm to touch with Mild redness.) Peripheral Pulses: within normal limits - Abdominal General gastrointestinal: Present: soft, non-tender, non-distended, normal bowel sounds. Absent: mass - Integumentary Integumentary: Present: clear, warm, dry. Absent: rash - Musculoskeletal Musculoskeletal: strength equal bilaterally - Psychiatric Psychiatric: appropriate mood/affect, intact judgment & insight, memory intact, cooperative - Neurologic Neurologic: CNII-XII intact, no focal deficits, moves all extremities - Constitutional Vitals: Temp Pulse Resp BP Pulse Ox 97.8 F 116 H 16 130/92 90 07/31/20 04:54 07/30/20 21:46 07/31/20 04:54 07/31/20 04:54 07/30/20 21:46 General appearance: Present: no acute distress, well-nourished Results - Labs CBC & Chem 7: 07/30/20 06:50 07/30/20 06:50 Labs: Laboratory Last Values WBC 9.9 K/mm3 (4.5-11.0) 07/30/20 06:50 RBC 3.48 M/mm3 (3.65-5.03) L 07/30/20 06:50 Hgb 10.0 gm/dl (10.1-14.3) L 07/30/20 06:50 Hct 30.2 % (30.3-42.9) L 07/30/20 06:50 MCV 87 fl (79-97) 07/30/20 06:50 MCH 29 pg (28-32) 07/30/20 06:50 MCHC 33 % (30-34) 07/30/20 06:50 RDW 17.3 % (13.2-15.2) H 07/30/20 06:50 Plt Count 342 K/mm3 (140-440) 07/30/20 06:50 Lymph % (Auto) 15.1 % (13.4-35.0) 07/29/20 07:10 Talbot % (Auto) 10.9 % (0.0-7.3) H 07/29/20 07:10 Eos % (Auto) 0.5 % (0.0-4.3) 07/29/20 07:10 Baso % (Auto) 0.4 % (0.0-1.8) 07/29/20 07:10 Lymph # (Auto) 1.6 K/mm3 (1.2-5.4) 07/29/20 07:10 Talbot # (Auto) 1.2 K/mm3 (0.0-0.8) H 07/29/20 07:10 Eos # (Auto) 0.1 K/mm3 (0.0-0.4) 07/29/20 07:10 Baso # (Auto) 0.0 K/mm3 (0.0-0.1) 07/29/20 07:10 Seg Neutrophils % 73.1 % (40.0-70.0) H 07/29/20 07:10 Seg Neutrophils # 7.9 K/mm3 (1.8-7.7) H 07/29/20 07:10 PT 14.5 Sec. (12.2-14.9) 07/29/20 04:00 INR 1.12 (0.87-1.13) 07/29/20 04:00 Sodium 138 mmol/L (137-145) 07/30/20 06:50 Potassium 4.0 mmol/L (3.6-5.0) 07/30/20 06:50 Chloride 101.9 mmol/L (98-107) 07/30/20 06:50 Carbon Dioxide 27 mmol/L (22-30) 07/30/20 06:50 Anion Gap 13 mmol/L 07/30/20 06:50 BUN 8 mg/dL (7-17) 07/30/20 06:50 Creatinine 0.5 mg/dL (0.6-1.2) L 07/30/20 06:50 Estimated GFR > 60 ml/min 07/30/20 06:50 BUN/Creatinine Ratio 16 % 07/30/20 06:50 Glucose 102 mg/dL (65-100) H 07/30/20 06:50 Lactic Acid 1.20 mmol/L (0.7-2.0) 07/28/20 20:50 Calcium 8.3 mg/dL (8.4-10.2) L 07/30/20 06:50 Total Bilirubin 0.40 mg/dL (0.1-1.2) 07/28/20 15:00 AST 12 units/L (5-40) 07/28/20 15:00 ALT 14 units/L (7-56) 07/28/20 15:00 Alkaline Phosphatase 91 units/L (35-129) 07/28/20 15:00 Total Creatine Kinase 95 units/L (30-135) 07/28/20 15:00 C-Reactive Protein 12.50 mg/dL (0.00-1.30) H 07/30/20 06:50 Total Protein 7.9 g/dL (6.3-8.2) 07/28/20 15:00 Albumin 4.2 g/dL (3.9-5) 07/28/20 15:00 Albumin/Globulin Ratio 1.1 % 07/28/20 15:00 Urine Color Straw (Yellow) 07/28/20 19:18 Urine Turbidity Clear (Clear) 07/28/20 19:18 Urine pH 5.0 (5.0-7.0) 07/28/20 19:18 Urine Protein <15 mg/dl mg/dL (Negative) 07/28/20 19:18 Urine Glucose (UA) Neg mg/dL (Negative) 07/28/20 19:18 Urine Ketones Neg mg/dL (Negative) 07/28/20 19:18 Urine Blood Mod (Negative) 07/28/20 19:18 Urine Nitrite Neg (Negative) 07/28/20 19:18 Urine Bilirubin Neg (Negative) 07/28/20 19:18 Urine Urobilinogen < 2.0 mg/dL (<2.0) 07/28/20 19:18 Ur Leukocyte Esterase Neg (Negative) 07/28/20 19:18 Urine WBC (Auto) 1.0 /HPF (0.0-6.0) 07/28/20 19:18 Urine RBC (Auto) 2.0 /HPF (0.0-6.0) 07/28/20 19:18 U Epithel Cells (Auto) 1.0 /HPF (0-13.0) 07/28/20 19:18 Microbiology: Microbiology 07/28/20 15:00 Peripheral/Venous Blood Culture - Preliminary NO GROWTH AFTER 48 HOURS 07/28/20 15:00 Peripheral/Venous Blood Culture - Preliminary NO GROWTH AFTER 48 HOURS Rubi/IV: Voiding Method Toilet IV Catheter Type [Right INT / Saline Lock Forearm] IV Catheter Type [Right Hand] Peripheral IV Active Medications - Current Medications Current Medications: Generic Name Dose Route Start Last Admin Trade Name Freq PRN Reason Stop Dose Admin Acetaminophen 650 mg 07/28/20 22:51 07/29/20 06:59 Tylenol PO 650 mg Q4H PRN Administration Pain MILD(1-3)/Fever >100.5/BURCIAGA Hydromorphone HCl 0.5 mg 07/29/20 15:16 07/31/20 09:30 Dilaudid IV 0.5 mg Q3H PRN Administration Pain , Severe (7-10) Sodium Chloride 1,000 mls @ 125 mls/hr 07/28/20 23:00 07/31/20 05:26 Nacl 0.9% 1000 Ml IV 125 mls/hr DIRECT JASON Administration Linezolid 600 mg in 300 mls @ 300 mls/hr 07/30/20 10:00 07/31/20 11:19 Zyvox 600mg/300ml IV 300 mls/hr Q12HR JASON Administration Protocol Levofloxacin/Dextrose 750 mg in 150 mls @ 100 mls/hr 07/30/20 10:00 07/31/20 09:29 Levaquin 750mg/150ml IV 100 mls/hr Q24HR JASON Administration Protocol Magnesium Hydroxide 30 ml 07/28/20 22:51 Milk Of Magnesia PO Q4H PRN Constipation Morphine Sulfate 2 mg 07/28/20 22:51 07/29/20 09:50 Morphine IV 2 mg Q4H PRN Administration Pain, Moderate (4-6) Ondansetron HCl 4 mg 07/28/20 22:51 Zofran IV Q8H PRN Nausea And Vomiting Sodium Chloride 10 ml 07/29/20 10:00 07/31/20 09:30 Sodium Chloride Flush Syringe 10 Ml IV 10 ml BID JASON Administration Sodium Chloride 10 ml 07/28/20 22:51 07/29/20 22:30 Sodium Chloride Flush Syringe 10 Ml IV 10 ml PRN PRN Administration LINE FLUSH
[2020-08-01] MEDS: HYDROmorphone 1 MG/1 ML INJ IV PRN ×5 (00:31→14:41)
[2020-08-01] MEDS: SODIUM CHLORIDE 0.9% 1000 ML 1,000 ML IV SCH (00:39)
[2020-08-01] MEDS: LINEZOLID 600 MG/300 ML BAG IV SCH (09:24)
--- NOTE | 2020-08-01 12:25 | Discharge Summary ---
Providers - Providers Date of Admission: 07/29/20 14:27 Attending physician: JOHN MCKEE MD 07/28/20 20:26 Consult to Physician [CONS] Urgent Comment: Dr. Weiss spoke with Dr. Willis Consulting Provider: SHAHEED WILLIS Physician Instructions: Reason For Exam: left leg cellulitis/abscess 07/29/20 15:12 Occupational Therapy Evaluate and Treat [CONS] Routine Comment: Reason For Exam: KNEE PAIN Physical Therapy Evaluation and Treat [CONS] Routine Comment: Reason For Exam: KNEE PAIN 07/29/20 15:38 Consult to Physician [CONS] Routine Comment: Consulting Provider: KATIE ALBRECHT Physician Instructions: Reason For Exam: LEFT KNEE SEPTIC JOINT Primary care physician: [employer] Hospitalization Reason for admission: left knee pain Condition: Stable Hospital course: 49-year-old female with known history of hypertension, GERD, hyperlipidemia, history of osteomyelitis with PICC line placement in the past, perirectal abscess status post incision and drainage and chronic pain syndrome presenting to the emergency room today complaining of swelling and pain in the left leg around the knee area. This has been ongoing for about 1 week and she has had associated fever. She has had surgery and hardware placement in the left knee in the past. Hardware was removed when it got infected. She denies any recent trauma or fall. Patient has taken some acetaminophen for the fever today. She however takes Percocet as needed for chronic back pain but indicates that the Percocet has not been helping with her pain today. Patient denies any chest pain or shortness of breath, no nausea or vomiting, no diarrhea, no hematuria or dysuria, no headache or dizziness. Patient has been placed on empiric IV antibiotics for cellulitis of the lateral aspect of the left knee. 07/29: Patient still in pain, no new fever, Will obtain ID consultation as patient has complex clinical process due to recurrent skin and soft tissue infections including perirectal abscess in the past and now site of prior surgical intervention in the knee. Await orthopedic consultation. CXR: IMPRESSION: 1. No acute findings. CT Lower ext lt :IMPRESSION: 1. Moderate edema/inflammation lateral to the tibial plateau in the same region of the abscess on 02/16/2020. Today there is a subtle small fluid collection possibly representing an abscess. There is a small effusion in the adjacent left knee, septic arthritis not excluded. Consider fluid aspiration for further evaluation. Unchanged postoperative appearance of the left tibia without definite evidence of osteomyelitis. vl venous duplex IMPRESSION: 1. No sonographic evidence for DVT in the left lower extremity. 07/30: Left knee showing some abscess. Have discussed with nursing staff to call Ortho to ensure patient is seen today as patient may need drainage. Review of records patient had initial MSSA osteomyelitis and septic knee then develo ped an abscess in January 2020 secondary to Proteus, E. coli, Klebsiella, E faecalis. CT shows fluid collection of 1.5 cm. We will continue current antibiotics as recommended by infectious disease doctor. Patient is on linezolid 600 mg IV every 12 hours and also Levaquin 750 mg IV daily, Azotrenam has been stopped. 07/31: Patient underwent I/D yesterday, awaiting culture result., still pending culture result. Abx to continue. Patient has had recurrent infections in the past. 08/01: Clinically improved today, Still with some pain in the ankle but now able to apple pressure to lower ext. D/W ID and Orthopedic Surgeon and will be followed in the office, Will cont Linezolid 600mg PO BID and Levaquin 750mg x 10 days on discharge. Encouraged Warm compress. Left leg cellulitis Sepsis Left knee abscess Hx of Septic Shock Hypertension Hyperlipidemia History of noncompliance Full code status Disposition: DC/TX-06 HOME UNDER HOME [facility] Time spent for discharge: 35 mins Core Measure Documentation - Palliative Care Palliative Care/ Comfort Measures: Not Applicable - Core Measures Any of the following diagnoses?: none Exam - Physical Exam Narrative exam: General appearance: Present: no acute distress, well-nourished - EENT Eyes: Present: PERRL, EOM intact. Absent: scleral icterus ENT: hearing intact, clear oral mucosa, dentition normal - Neck Neck: Present: supple, normal ROM - Respiratory Respiratory effort: normal Respiratory: bilateral: CTA - Cardiovascular Rhythm: regular Heart Sounds: Present: S1 & S2. Absent: gallop, systolic murmur, diastolic murmur, rub - Extremities Extremities: no ischemia, pulses intact, pulses symmetrical, No edema, Full ROM Extremity abnormal: tenderness (Lateral aspect of left knee, warm to touch with Mild redness) Peripheral Pulses: within normal limits - Abdominal General gastrointestinal: Present: soft, non-tender, non-distended, normal bowel sounds. Absent: mass - Integumentary Integumentary: Present: clear, warm, dry. Absent: rash - Musculoskeletal Musculoskeletal: strength equal bilaterally - Psychiatric Psychiatric: appropriate mood/affect, intact judgment & insight, memory intact, cooperative - Neurologic Neurologic: CNII-XII intact, no focal deficits, moves all extremities - Constitutional Vitals: Temp Pulse Resp BP Pulse Ox 98.0 F 107 H 22 135/85 97 08/01/20 06:12 08/01/20 06:12 08/01/20 06:12 08/01/20 06:12 08/01/20 06:12 Plan Activity: advance as tolerated, fall precautions Diet: low fat Special Instructions: record daily weights, record daily BP diary Follow up with: PRIMARY CAREMD [Primary Care Provider] - 3-5 Days SHAHEED WILLIS MD [Staff Physician] - 7 Days Prescriptions: Cyclobenzaprine [Flexeril 10 MG TAB] 10 mg PO TID PRN #14 PRN Reason: Muscle Spasm levoFLOXacin [Levaquin] 750 mg PO QDAY #10 tablet oxyCODONE /ACETAMINOPHEN [Percocet 5/325 mg] 2 tab PO Q6H PRN #10 tablet PRN Reason: Pain, Moderate (4-6) Linezolid [Zyvox] 600 mg PO BID #20 tablet
[2020-08-01 13:01] VITALS: BP 106/72
== END 2020-08-01 17:00 | disposition home health service (06) | DRG 872 ==
LOC: ED 13:16 → 3A 20:40 → OBSVTOIN 07-29 14:27
PROVIDERS: ADMIT Internal Medicine Geriatric Medicine; ATTEND Internal Medicine
DX: A41.9 Sepsis, unspecified organism (principal); L03.116 Cellulitis of left lower limb; I10 Essential (primary) hypertension; K21.9 Gastro-esophageal reflux disease without esophagitis; M19.90 Unspecified osteoarthritis, unspecified site; Z88.6 Allergy status to analgesic agent; Z88.5 Allergy status to narcotic agent; Z88.0 Allergy status to penicillin; Z88.8 Allergy status to other drugs, medicaments and biological substances; L02.416 Cutaneous abscess of left lower limb; M86.9 Osteomyelitis, unspecified; E78.5 Hyperlipidemia, unspecified; E11.9 Type 2 diabetes mellitus without complications; M25.462 Effusion, left knee; Z91.14 Patient's other noncompliance with medication regimen
CPT/HCPCS: 36415; 71045; 80048; 80053; 81001; 82140; 82550; 85025; 85027; 85610; 86140; 87040; 93005; 96374; 96375; G0378; J1170; J1956; J2020; J2270; J2405; J7030; Q9967

== ENCOUNTER 2020-10-08 11:17 | Emergency (ER) | payer MEDICAID ==
--- NOTE | 2020-10-08 11:27 | Event Note ---
ED Screening Note Date of service: 10/08/20 Time: 11:26 ED Screening Note: Patient complains of worsening left leg pain after her PICC line stopped working 4 days ago Patient is on IV antibiotics for a chronic left lower leg infection-states recent debridement for osteomyelitis States tactile fever at home Heart rate noted to be 115 This initial assessment/diagnostic orders/clinical plan/treatment(s) is/are subject to change based on patients health status, clinical progression and re-assessment by fellow clinical providers in the ED. Further treatment and workup at subsequent clinical providers discretion. Patient/guardian urged not to elope from the ED as their condition may be serious if not clinically assessed and managed. Initial orders include: Labs
[2020-10-08 13:24] LABS: Basophils % (Auto) 0.7 % (0.0-1.8); Eosinophils # (Auto) 0.2 K/mm3 (0.0-0.4); Eosinophils % (Auto) 2.6 % (0.0-4.3); Hematocrit 36.6 % (30.3-42.9); Hemoglobin 12.1 gm/dl (10.1-14.3); Lymphocytes # (Auto) 1.7 K/mm3 (1.2-5.4); Lymphocytes % (Auto) 27.2 % (13.4-35.0); Mean Corpuscular HGB Conc 33 % (30-34); Mean Corpuscular Volume 85 fl (79-97); Monocytes # (Auto) 0.4 K/mm3 (0.0-0.8); Monocytes % (Auto) 6.6 % (0.0-7.3); Platelet Count 426 K/mm3 (140-440); Red Blood Count 4.31 M/mm3 (3.65-5.03); Red Cell Distribution Width 15.5 % (13.2-15.2)
[2020-10-08 13:42] LABS: Alanine Aminotransferase 17 units/L (7-56); Albumin 4.4 g/dL (3.9-5); Blood Urea Nitrogen 8 mg/dL (7-17); Calcium 9.7 mg/dL (8.4-10.2); Hemolysis Index 4
[2020-10-08 13:44] LABS: BUN/Creatinine Ratio 20
--- NOTE | 2020-10-08 14:06 | Emergency Department Report ---
ED General Adult HPI - General Chief complaint: Extremity Injury, Upper Stated complaint: NEEDS PICC LINE REPLACED Time Seen by Provider: 10/08/20 11:25 Source: patient Mode of arrival: Ambulatory Limitations: No Limitations - History of Present Illness Initial comments: CC: Midline not working HPI: THis is a 49 yo female with hx of HTN, arthritis, HLD, chronic pain, sepsis from injected LLE hardward who presents with dysfunction midline. Antibiotic infused leaked from insertion site. The midline stopped functionin 4 days ago. No pain in arm. NO chest pain. NO dyspnea. According to recent discharge summary, patient was placed on voriconzole and meropenem for left lower leg abscess, cellulitis. wound vac in place. She has pain at that site which is unchanged. -: Sudden, days(s) (4) Severity scale (0 -10): 10 Consistency: constant (constant leg pain) Improves with: none Worsens with: none Associated Symptoms: other (constant leg pain at site of wound) - Related Data Previous Rx's Medication Instructions Recorded Last Taken Type Simvastatin 10 mg PO DAILY #30 03/25/20 09/04/20 Rx Cyclobenzaprine [Flexeril 10 MG 10 mg PO TID PRN #14 08/01/20 09/04/20 Rx TAB] ALPRAZolam [Xanax TAB] 1 mg PO QHS PRN #10 tab 08/10/20 09/04/20 Rx levoFLOXacin [Levaquin TAB] 750 mg PO QDAY #5 tablet 08/10/20 09/04/20 Rx oxyCODONE /ACETAMINOPHEN [Percocet 2 tab PO Q6H PRN #10 tablet 08/10/20 09/04/20 Rx 5/325 mg] Allergies Allergy/AdvReac Type Severity Reaction Status Date / Time aspirin Allergy Swelling Verified 04/06/20 12:15 hydroxyzine HCl Allergy Anaphylaxis Verified 04/06/20 12:15 [From Vistaril] hydroxyzine pamoate Allergy Anaphylaxis Verified 04/06/20 12:15 [From Vistaril] ketorolac tromethamine Allergy Swelling Verified 04/06/20 12:15 [From Toradol] morphine Allergy Unknown Verified 07/31/20 14:21 Penicillins Allergy Anaphylaxis Verified 04/06/20 12:15 tramadol Allergy Shortness Verified 04/06/20 12:15 of Breath vancomycin Allergy Rash Verified 04/06/20 12:15 ED Review of Systems ROS: Stated complaint: NEEDS PICC LINE REPLACED Other details as noted in HPI Comment: All other systems reviewed and negative Constitutional: denies: fever, malaise Respiratory: denies: cough, shortness of breath ED Past Medical Hx - Past Medical History Previous Medical History?: Yes Hx Hypertension: Yes Hx Heart Attack/AMI: No Hx Congestive Heart Failure: No Hx Diabetes: No Hx Deep Vein Thrombosis: No Hx Liver Disease: No Hx Renal Disease: No Hx Sickle Cell Disease: No Hx Arthritis: Yes Hx Seizures: No Hx Kidney Stones: Yes Hx Asthma: No Hx COPD: No Hx HIV: No Additional medical history: chronic pain, hypercholesterolemia, sepsis in 2018, infected hardware in LLL removed 11/2018. spinal stenosis - Surgical History Past Surgical History?: Yes Additional Surgical History: L leg fx repair. hyst. pelvic fx repair. Pt became septic due to infection caused by metal in LLL: removed early 2018. left leg surgery for wash out/debridment - Social History Smoking Status: Former Smoker (None x20 years) Substance Use Type: None (Denies illicit drug use) - Medications Home Medications: Home Medications Medication Instructions Recorded Confirmed Last Taken Type Simvastatin 10 mg PO DAILY #30 03/25/20 09/06/20 09/04/20 Rx Cyclobenzaprine [Flexeril 10 MG 10 mg PO TID PRN #14 08/01/20 09/06/20 09/04/20 Rx TAB] ALPRAZolam [Xanax TAB] 1 mg PO QHS PRN #10 tab 08/10/20 09/06/20 09/04/20 Rx levoFLOXacin [Levaquin TAB] 750 mg PO QDAY #5 tablet 08/10/20 09/06/20 09/04/20 Rx oxyCODONE /ACETAMINOPHEN [Percocet 2 tab PO Q6H PRN #10 tablet 08/10/20 09/06/20 09/04/20 Rx 5/325 mg] ED Physical Exam - General Limitations: No Limitations General appearance: alert, in no apparent distress - Head Head exam: Present: atraumatic, normocephalic - Eye Eye exam: Present: normal appearance - ENT ENT exam: Present: mucous membranes moist - Neck Neck exam: Present: normal inspection, full ROM - Respiratory Respiratory exam: Absent: respiratory distress - Extremities Exam Extremities exam: Present: other (LLE: wound vac in placed no surrounding erythema, RUE: midline in place, leakage observed with NS flush) - Neurological Exam Neurological exam: Present: alert, oriented X3 - Psychiatric Psychiatric exam: Present: normal affect, normal mood - Skin Skin exam: Present: warm, normal color, rash ED Course Vital Signs 10/08/20 10/08/20 11:23 15:44 Temperature 98.0 F Pulse Rate 113 H 74 Respiratory 16 16 Rate Blood Pressure 105/76 107/76 [Right] O2 Sat by Pulse 100 94 Oximetry ED Medical Decision Making - Lab Data Result diagrams: 10/08/20 13:00 10/08/20 13:00 - Medical Decision Making Nonfunctional midline: I attempted to flush the midline with normal saline. The normal saline leaked from the insertion site. I spoke directly with IV nurse. IV nurse was able to replace midline. Patient has subacute pain due to left leg wound which does not require any further investigation. CBC chemistry lactic acid all within normal limits. Critical care attestation.: If time is entered above; I have spent that time in minutes in the direct care of this critically ill patient, excluding procedure time. ED Disposition Clinical Impression: Encounter for venous access device care, Leg wound, left Disposition: DC-01 TO HOME OR SELFCARE Is pt being admited?: No Does the pt Need Aspirin: No Condition: Stable
[2020-10-08 15:45] VITALS: BP 107/76
== END 2020-10-08 16:00 | disposition home or self-care (01) ==
LOC: ED 11:17
DX: T82.534A Leakage of infusion catheter, initial encounter (principal); S81.802A Unspecified open wound, left lower leg, initial encounter; I10 Essential (primary) hypertension; M19.91 Primary osteoarthritis, unspecified site; Z98.890 Other specified postprocedural states; Z87.891 Personal history of nicotine dependence; Z79.899 Other long term (current) drug therapy; Z88.8 Allergy status to other drugs, medicaments and biological substances; X58.XXXA Exposure to other specified factors, initial encounter; Y93.89 Activity, other specified; Y92.89 Other specified places as the place of occurrence of the external cause; Y99.8 Other external cause status
CPT/HCPCS: 36415; 80053; 82140; 85025

== ENCOUNTER 2021-05-05 10:51 | Emergency (ER) | payer MEDICAID ==
[2021-05-05 11:31] VITALS: BP 115/70
--- NOTE | 2021-05-05 12:02 | Event Note ---
ED Screening Note Date of service: 05/05/21 Time: 12:01 ED Screening Note: Patient presents to the ER today with complaints of right-sided back pain radiating to her right abdomen. Onset 1 week ago. She reports associated nausea and vomiting x3 in the past 1 week and she states that she had diarrhea yesterday but this has since resolved. She reports decreased appetite and she states that she had a temperature of 102 this morning. This initial assessment/diagnostic orders/clinical plan/treatment(s) is/are subject to change based on patients health status, clinical progression and re- assessment by fellow clinical providers in the ED. Further treatment and workup at subsequent clinical providers discretion. Patient/guardian urged not to elope from the ED as their condition may be serious if not clinically assessed and managed. Initial orders include: Labs
[2021-05-05 12:46] LABS: Basophils # (Auto) 0.1 K/mm3 (0.0-0.1); Basophils % (Auto) 0.7 % (0.0-1.8); Eosinophils % (Auto) 0.4 % (0.0-4.3); Hematocrit 35.3 % (30.3-42.9); Hemoglobin 11.9 gm/dl (10.1-14.3); Lymphocytes # (Auto) 1.8 K/mm3 (1.2-5.4); Lymphocytes % (Auto) 21.1 % (13.4-35.0); Mean Corpuscular HGB Conc 34 % (30-34); Mean Corpuscular Volume 86 fl (79-97); Monocytes # (Auto) 0.6 K/mm3 (0.0-0.8); Monocytes % (Auto) 6.9 % (0.0-7.3); Platelet Count 469 K/mm3 (140-440)
[2021-05-05 13:01] LABS: Alanine Aminotransferase 16 units/L (7-56); Albumin 4.5 g/dL (3.9-5); Blood Urea Nitrogen 9 mg/dL (7-17); Calcium 9.5 mg/dL (8.4-10.2); Hemolysis Index 4
[2021-05-05 14:00] LABS: Bilirubin,Urine NEG (Negative); Blood,Urine NEG (Negative); Calcium Oxalate Crystals,Urine 2+; Color,Urine Yellow (Yellow); Mucus,Urine 2+ /HPF; Urobilinogen,Urine < 2.0 mg/dL (<2.0)
[2021-05-05 14:11] LABS: BUN/Creatinine Ratio 18
[2021-05-05] MEDS ORDERED: CYCLOBENZAPRINE 10 MG TAB PO ONE (14:39)
[2021-05-05] MEDS ORDERED: traMADol 50 MG TAB PO ONE (14:39)
[2021-05-05] MEDS ORDERED: predniSONE 20 MG TAB PO ONE (14:39)
--- NOTE | 2021-05-05 14:40 | Emergency Department Report ---
ED Back Pain/Injury HPI - General Chief Complaint: Back Pain/Injury Stated Complaint: PAIN IN BACK TO FRONT ABDOMIN Time Seen by Provider: 05/05/21 14:30 Source: patient Limitations: No Limitations - History of Present Illness Initial Comments: Patient is a 50-year-old female that comes to the emergency room with pain originating in her low back radiating across her hip down into her right leg. She states the pain is worse with movement. She does have a positive straight leg raise. She denies any trauma. Patient is neurovascularly intact. She denies any urinary or bowel incontinence. She denies chest pain shortness of breath fever or chills. She denies any dysuria. She denies any vaginal discharge or bleeding. MD Complaint: back pain -: Gradual, days(s) Similar Symptoms Previously: Yes Place: home Radiation: right leg Severity: mild Quality: burning Consistency: intermittent Improves With: immobilization Worsens With: movement Associated Symptoms: denies other symptoms - Related Data Previous Rx's Medication Instructions Recorded Last Taken Type Simvastatin 10 mg PO DAILY #30 03/25/20 09/04/20 Rx Cyclobenzaprine [Flexeril 10 MG 10 mg PO TID PRN #14 08/01/20 09/04/20 Rx TAB] ALPRAZolam [Xanax TAB] 1 mg PO QHS PRN #10 tab 08/10/20 09/04/20 Rx levoFLOXacin [Levaquin TAB] 750 mg PO QDAY #5 tablet 08/10/20 09/04/20 Rx oxyCODONE /ACETAMINOPHEN [Percocet 2 tab PO Q6H PRN #10 tablet 08/10/20 09/04/20 Rx 5/325 mg] Cyclobenzaprine [Flexeril] 10 mg PO TID PRN #10 tablet 05/05/21 Unknown Rx predniSONE [Deltasone] 20 mg PO DAILY #5 tablet 05/05/21 Unknown Rx traMADoL [Ultram] 50 mg PO Q6HR PRN #10 tablet 05/05/21 Unknown Rx Allergies Allergy/AdvReac Type Severity Reaction Status Date / Time aspirin Allergy Swelling Verified 05/05/21 11:26 hydroxyzine HCl Allergy Anaphylaxis Verified 04/06/20 12:15 [From Vistaril] hydroxyzine pamoate Allergy Anaphylaxis Verified 04/06/20 12:15 [From Vistaril] ketorolac tromethamine Allergy Swelling Verified 05/05/21 11:26 [From Toradol] morphine Allergy Unknown Verified 05/05/21 11:26 Penicillins Allergy Anaphylaxis Verified 05/05/21 11:26 tramadol Allergy Shortness Verified 05/05/21 11:26 of Breath vancomycin Allergy Rash Verified 05/05/21 11:26 ED Review of Systems ROS: Stated complaint: PAIN IN BACK TO FRONT ABDOMIN Other details as noted in HPI Comment: All other systems reviewed and negative ED Past Medical Hx - Past Medical History chronic pain, hypercholesterolemia, sepsis in 2018, infected hardware in LLL removed 11/2018. spinal stenosis Psychiatric history: no pertinent history Family history: no significant family history ED Back Pain Physical Exam - Exam General: Vital signs noted. No distress. Alert and acting appropriately. Back/Abdomen: Yes Straight Leg Raise Pain, No Abdominal Tenderness, No Perithoracic Tenderness, No Perilumbar Tenderness, No Sacroiliac Tenderness, No Flank Tenderness Neuro: Yes Normal Sensation, Yes Normal DTR's, Yes Normal Gait, No Motor We akness ED Course Vital Signs 05/05/21 11:28 Temperature 98.2 F Pulse Rate 101 H Respiratory 20 Rate Blood Pressure 115/70 O2 Sat by Pulse 99 Oximetry Ed Back Pain Tests - Tests Tests: Normal ED Medical Decision Making - Lab Data Result diagrams: 05/05/21 12:14 05/05/21 12:14 - Medical Decision Making Lab Results 05/05/21 05/05/21 05/05/21 Range/Units 12:14 12:14 Unknown WBC 8.7 (4.5-11.0) K/mm3 RBC 4.10 (3.65-5.03) M/mm3 Hgb 11.9 (10.1-14.3) gm/dl Hct 35.3 (30.3-42.9) % MCV 86 (79-97) fl MCH 29 (28-32) pg MCHC 34 (30-34) % RDW 16.0 H (13.2-15.2) % Plt Count 469 H (140-440) K/mm3 Lymph % (Auto) 21.1 (13.4-35.0) % [place] % (Auto) 6.9 (0.0-7.3) % Eos % (Auto) 0.4 (0.0-4.3) % Baso % (Auto) 0.7 (0.0-1.8) % Lymph # (Auto) 1.8 (1.2-5.4) K/mm3 [place] # (Auto) 0.6 (0.0-0.8) K/mm3 Eos # (Auto) 0.0 (0.0-0.4) K/mm3 Baso # (Auto) 0.1 (0.0-0.1) K/mm3 Seg Neutrophils % 70.9 H (40.0-70.0) % Seg Neutrophils # 6.2 (1.8-7.7) K/mm3 Sodium 138 (137-145) mmol/L Potassium 3.7 (3.6-5.0) mmol/L Chloride 102.4 (98-107) mmol/L Carbon Dioxide 22 (22-30) mmol/L Anion Gap 17 mmol/L BUN 9 (7-17) mg/dL Creatinine 0.5 L (0.6-1.2) mg/dL Estimated GFR > 60 ml/min BUN/Creatinine Ratio 18 % Glucose 102 H (65-100) mg/dL Calcium 9.5 (8.4-10.2) mg/dL Total Bilirubin 0.20 (0.1-1.2) mg/dL AST 15 (5-40) units/L ALT 16 (7-56) units/L Alkaline Phosphatase 99 (35-129) units/L Total Protein 8.2 (6.3-8.2) g/dL Albumin 4.5 (3.9-5) g/dL Albumin/Globulin Ratio 1.2 % Lipase 95 H (13-60) units/L Urine Color Yellow (Yellow) Urine Turbidity Clear (Clear) Urine pH 5.0 (5.0-7.0) Ur Specific [place] 1.033 H (1.003-1.030) Urine Protein 30 mg/dl (Negative) mg/dL Urine Glucose (UA) Neg (Negative) mg/dL Urine Ketones Neg (Negative) mg/dL Urine Blood Neg (Negative) Urine Nitrite Neg (Negative) Urine Bilirubin Neg (Negative) Urine Urobilinogen < 2.0 (<2.0) mg/dL Ur Leukocyte Esterase Neg (Negative) Urine WBC (Auto) 3.0 (0.0-6.0) /HPF Urine RBC (Auto) 2.0 (0.0-6.0) /HPF U Epithel Cells (Auto) 2.0 (0-13.0) /HPF Calcium Oxalate Crystal 2+ Urine Mucus 2+ /HPF Vital Signs (72 hours) 05/05/21 11:28 Temperature 98.2 F Pulse Rate 101 H Respiratory 20 Rate Blood Pressure 115/70 O2 Sat by Pulse 99 Oximetry Labs noted. UA noted. Positive straight leg raise on exam. Medicated with Flexeril, Ultram and prednisone. Note allergies. Patient has a history of acute on chronic pain. Patient is neurovascularly intact. She is ambulatory and in no acute distress. Patient being discharged home with medications and follow-up. Patient verbalizes understanding of discharge plan of care - Differential Diagnosis Sciatica versus UTI Critical care attestation.: If time is entered above; I have spent that time in minutes in the direct care of this critically ill patient, excluding procedure time. ED Disposition Clinical Impression: Sciatica Disposition: - TO HOME OR SELFCARE Is pt being admited?: No Does the pt Need Aspirin: No Condition: Stable Instructions: Radicular Pain, Sciatica Additional Instructions: MEDS ORDERED WARM BATHS SEE PCP NEXT WEEK FOR RECHECK REFERRAL BELOW Prescriptions: predniSONE [Deltasone] 20 mg PO DAILY #5 tablet Cyclobenzaprine [Flexeril] 10 mg PO TID PRN #10 tablet PRN Reason: Muscle Spasm traMADoL [Ultram] 50 mg PO Q6HR PRN #10 tablet PRN Reason: Pain Referrals: KATHARINE VO MD [Staff Physician] - 3-5 Days Time of Disposition: 14:42
== END 2021-05-05 15:12 | disposition home or self-care (01) ==
LOC: ED 10:51
DX: M54.30 Sciatica, unspecified side (principal); G89.29 Other chronic pain; E78.00 Pure hypercholesterolemia, unspecified; M48.00 Spinal stenosis, site unspecified; Z88.0 Allergy status to penicillin; Z88.1 Allergy status to other antibiotic agents; Z88.5 Allergy status to narcotic agent; Z88.6 Allergy status to analgesic agent
CPT/HCPCS: 36415; 80053; 81001; 83690; 85025; 99283; J7512